=== PATIENT | female | born 1990 | race Caucasian/White ===

== ENCOUNTER → 2017-09-06 16:05 | Outpatient (CLI) | payer MEDICAID, SELFPAY ==
[2017-08-13 13:23] VITALS: BP 121/82; BMI 25.3
[2017-09-06 17:52] LABS: Free T3 5.4 pg/mL (2.18-3.98); T4 Free Direct 1.68 ng/dL (0.76-1.46); Thyroid Stim Hormone (TSH) < 0.01 uIU/mL (0.358-3.74)
== END ==
PROVIDERS: Family Provider Nurse Practitioner Family; PCP Nurse Practitioner Family; Visit Provider Nurse Practitioner
DX: E05.90 Thyrotoxicosis, unspecified without thyrotoxic crisis or storm (principal)
CPT/HCPCS: 84439; 84443; 84481

== ENCOUNTER → 2017-10-02 09:21 | Outpatient (CLI) | payer MEDICAID, SELFPAY ==
[2017-10-02 11:12] LABS: Hemoglobin A1c 5.8 % (4.2-6.3)
== END ==
PROVIDERS: Visit Provider Nurse Practitioner
DX: E11.65 Type 2 diabetes mellitus with hyperglycemia (principal)
CPT/HCPCS: 36415; 83036

== ENCOUNTER → 2017-10-10 08:49 | Outpatient (CLI) | payer MEDICAID, SELFPAY ==
--- NOTE | 2017-10-10 08:51 | NM_ITS ---
CLINICAL: Female, 27 years old. Hyperthyroid. Right-sided nodule or mass. THYROID IMAGING STUDY TECHNIQUE: The patient was administered a 306 uCi I-123 capsule by mouth. COMPARISON STUDIES : NM - None. CR - Not available for review at this time. CT - Not available for review at this time. MR - Not available for review at this time. US - 07/12/2017, which showed a 3.3 cm right thyroid mass. FINDINGS: The 4 hour I-123 radioactive iodine thyroidal uptake was calculated to be 48% (normal 5-25 %). The 24-hour I-123 radioactive iodine thyroidal uptake was calculated to be 67% (normal 5 to 35%). The iodine uptake is localized only to the right thyroid mass, with suppression of the remainder of the thyroid. NM/Thyroid Image Quant Measure IMPRESSION: Findings are consistent with a hyperactive, autonomous, hot right thyroid nodule. These can usually be very effectively treated with radioiodine therapy. Electronically Signed: Gordo Stevenson MD at 8:33 EDT , Service support ,
== END ==
PROVIDERS: Visit Provider Nurse Practitioner
DX: E05.90 Thyrotoxicosis, unspecified without thyrotoxic crisis or storm (principal)
CPT/HCPCS: 78014; A9516

== ENCOUNTER → 2017-12-06 15:43 | Outpatient (CLI) | payer MEDICAID, SELFPAY ==
[2017-12-06 17:56] LABS: Free T3 3.8 pg/mL (2.18-3.98); T4 Free Direct 1.42 ng/dL (0.76-1.46); Thyroid Stim Hormone (TSH) < 0.01 uIU/mL (0.358-3.74)
== END ==
PROVIDERS: Visit Provider Nurse Practitioner
DX: E05.90 Thyrotoxicosis, unspecified without thyrotoxic crisis or storm (principal); E07.9 Disorder of thyroid, unspecified
CPT/HCPCS: 36415; 84439; 84443; 84481

== ENCOUNTER → 2018-01-15 15:35 | Outpatient (CLI) | payer MEDICAID, SELFPAY ==
[2018-01-15 16:51] LABS: Hemoglobin A1c 5.3 % (4.2-6.3)
[2018-01-15 16:59] LABS: Free T3 2.6 pg/mL (2.18-3.98); Thyroid Stim Hormone (TSH) < 0.01 uIU/mL (0.358-3.74)
== END ==
PROVIDERS: Visit Provider Nurse Practitioner
DX: E10.9 Type 1 diabetes mellitus without complications (principal); E05.90 Thyrotoxicosis, unspecified without thyrotoxic crisis or storm
CPT/HCPCS: 36415; 83036; 84439; 84443; 84481

== ENCOUNTER → 2018-02-06 09:49 | Outpatient (CLI) | payer MEDICAID, SELFPAY ==
[2018-02-06 11:33] LABS: ALB/GLOB Ratio 0.9 RATIO (0.9-2.4); AST(SGOT) 14 U/L (15-37); Alanine Aminotransfer ALT/SGPT 16 U/L (13-56); Albumin, Serum 3.1 g/dL (3.2-5.0); Alkaline Phosphatase 40 U/L (45-117); Anion Gap 9 (5-15); BUN 9 mg/dL (7-18); BUN/Creat Ratio 14.9 RATIO (10-20); Calcium,Total 8.5 mg/dL (8.5-10.1); Chloride 105 mmol/L (98-107); Cholesterol 223 mg/dL (200); EST Glomerular Filtration Rate 128 mL/min (>60); Est Glom Filt Rate - Afr Amer 155 mL/min (>60); Free T3 2.2 pg/mL (2.18-3.98); Globulin 3.4 g/dL (2.2-4.2); Glucose 95 mg/dL (74-106); High Density Lipoprotein 58 mg/dL; Potassium 3.9 mmol/L (3.5-5.1); Protein, Total 6.5 g/dL (6.4-8.2); Sodium Level 141 mmol/L (136-145); Thyroid Stim Hormone (TSH) 0.36 uIU/mL (0.358-3.74); Triglycerides 83 mg/dL; Very Low Density Lipoprotein 17 mg/dL (5-40)
[2018-02-06 11:51] LABS: Microalbumin,Random Urine 6.4 mg/L (NO RANGE EST.); Microalbumin:Creatinine Ratio 4.1 mg/g CRE (<30 mg/g CRE)
[2018-02-08 14:15] LABS: C-Peptide 1.3 ng/mL (1.1-4.4)
== END ==
PROVIDERS: Visit Provider Nurse Practitioner
DX: E10.9 Type 1 diabetes mellitus without complications (principal)
CPT/HCPCS: 36415; 80053; 80061; 82043; 82570; 84439; 84443; 84481; 84681

== ENCOUNTER 2018-02-15 05:20 | Day surgery (SDC) | payer MEDICAID, SELFPAY ==
[2018-02-15] VITALS (9 sets, daily range): BP systolic 112–135; BP diastolic 79–98; PULSE 60–94; RESP 14–18; TEMP 36.7–37.3; O2SAT 96–100; BMI 22.2
[2018-02-15 05:56] LABS: Internal QC Validated? YES +Cl - CLEAR BKGD; Pregnancy, Urine Negative Negative
--- NOTE | 2018-02-15 06:55 | HP.PCM_ITS ---
Problem List (1) Hyperthyroidism Status: Acute History of Present Illness Date of Admission: 02/15/18 The patient is a 27 year old F who presents to the office today for for a surgical evaluation for her hyperthyroidism. Patient has been treated by numerous accredited pharmacy technician as well as ear nose and throat physicians when she was diagnosed with hypothyroidism a few years back. Recently she was seen by ELIU camara who went over her nuclear scan and other antibody studies. She was started on Tapazole and restarted on methimazole. She is currently euthyroid on Tapazole 5 mg daily and presents to my office today for surgical evaluation given the fact that she has had such a hard time getting into normal thyroidism. Past Medical History Past Medical History (Chronic Problems): Chronic Problems (Last Reviewed 02/05/18 @ 12:51 by Pura Sykes) Diabetes mellitus type 1, controlled, without complications (Chronic) initiated basaglar insulin due to low c peptide and john 65 antibodies. Instructed on use of insulin pen. Doing an excellent job of control and feels good. Confident in self.. Medical History: Medical History (Last Reviewed 02/15/18 @ 06:53 by Jared Jaimes MD) Diabetes type 2, controlled (Acute) E11.9 Dx : 07/15 Last exacerbation : DKA : never Hypoglycemic episode : never ER visit : never Polycystic ovarian disease (Acute) E28.2 Sleep apnea (Acute) G47.30 Graves disease (Acute) E05.00 Hyperthyroidism (Acute) E05.90 Allergies No Known Allergies Allergy (Verified 02/15/18 05:47) Home Medications: Ambulatory Orders Medication Instructions Recorded methimazole 5 mg tablet 5 mg PO QDAY #30 tab 12/26/17 blood sugar diagnostic strips See Dose Instructions .ROUTE 01/09/18 .MEDSUPPLY #120 ea Insulin Glargine,Hum.rec.anlog 3 unit SC QDAY 02/08/18 [Basaglar Kwikpen U-100] Norgestimate-Ethinyl Estradiol 1 each PO DAILY 02/08/18 [Williamson-Linyah 28 Tablet] Smoking Status: Former smoker - *Family History Maternal Family History: Family History (Last Reviewed 02/05/18 @ 12:51 by Pura Sykes) Father Hypertension History Items: No pertinent history Review of Systems Cardiovascular: Denies: Chest Pain, Chest Pressure, Chest Tightness, Palpitations Respiratory: Denies: Cough, Hemoptysis, Shortness of breath at rest, Shortness of breath upon exertion, Wheezing Gastrointestinal: Denies: Abdominal Pain, Constipation, Diarrhea, Hematemesis, Nausea, Melena, Vomiting Genitourinary: Denies: Dysuria, Frequency, Hematuria, Urgency VTE Information - Inpt Only VTE Present on Admission: No VTE Mechan Device Prophylaxis: SCD's VTE Pharm Prophylaxis ordered?: No Reason prophylaxis not ordered:: Treatment Not Indicated - Physical Exam General: Alert, Oriented x3 Neck: Supple, No JVD Lungs: Clear to auscultation Cardiovascular: Regular rate, Regular Rhythm, No murmurs Abdomen: Bowel Sounds Present, Soft, Non Tender, Non-Distended Vital Signs Temp Pulse Resp BP Pulse Ox 98.1 F 69 14 112/79 100 02/15/18 05:53 02/15/18 05:53 02/15/18 05:53 02/15/18 05:53 02/15/18 05:53 Oxygen Delivery Method Room Air Weight: 125 lb 10.616 oz Body Mass Index (BMI) 22.2 Laboratory Tests Past 24 Hrs 02/15/18 05:40 Urine Test Negative Assessment/Plan All Active Problems (Last Reviewed 02/05/18 @ 12:51 by Pura Sykes) Diabetes type 2, controlled (Acute) Polycystic ovarian disease (Acute) Sleep apnea (Acute) Graves disease (Acute) Hyperthyroidism (Acute) Hyperthyroidism (Acute) Diabetes mellitus type 2, controlled, without complications (Acute) I recommended that the patient undergo a total thyroidectomy. I counseled the patient is to the risk of the procedure including but not limited to infection bleeding recurrent laryngeal nerve injury or parathyroid gland injury. All questions asked were answered and she was given printed material with regards to her surgery.
[2018-02-15] MEDS: Cefazolin 2 GM in 0.9% Normal Saline 100 ML IV (07:26)
--- NOTE | 2018-02-15 07:30 | THYROID_PTH ---
PATIENT: BRIT Shen LOC: [facility] – [place] U#:[id number] AGE/SX: 27/F ROOM: RE02/15/[address]: Dr. Cortney Yanez MD : 1990 BED: DIS: 02/16/2018 SPEC #: [id number] RECD: 02/15/18 15:55 STATUS: JACOBO REJustin #: [id number] SHAHRAM: 02/15/18 07:[address]: Jared Jaimes DEPT: SURGICAL PATHOLOGY RECD BY: Beto Brandt ENTERED: 02/18/18 11:53 SP TYPE: THYROID OTHR DR: MD Dr. Cortney Balderas MD Dr. Mark Tereletsky, DO No Primary Care Phys Tissues: A - Thyroid gland, NOS B - Thyroid gland, NOS Procedures: Surgery Specimen Level V Comments: @ Ordering doctor for SUV edited from to @ by MARCIA at 02/18/18 1549 @ Submitting doctor edited from to @ by RGOOD at 02/18/18 1549 HEADER OPERATION: Total thyroidectomy PRE-OP DIAGNOSIS: Hyperthyroidism TISSUE SUBMITTED: A - Right lobe of thyroid, B ? Left lobe of thyroid MICROSCOPIC DIAGNOSIS A. Right lobe of thyroid, lobectomy: Multinodular goiter with a dominant nodule (3 cm in greatest dimension). Chronic inflammation. See comment. B. Left lobe of thyroid, lobectomy: Multinodular goiter with H?rthle cell changes. See comment. SJ:rg 02/19/18 COMMENT A. The nodules also show H?rthle cell changes and dominant nodule shows focal calcifications. B. The specimen shows only a few small nodules. Please make reference to previous specimen ([id number]) fine needle aspiration, right thyroid nodule with diagnosis of consistent with colloid nodule. MICROSCOPIC DESCRIPTION Slides are reviewed. GROSS DESCRIPTION A - Received in fixative is one container labeled with the patient's name and designated right lobe of thyroid. The specimen consists of a thyroid lobectomy specimen measuring 4.5 x 3 x 2.5 cm and weighing 14.1 gm. The specimen partly appears disrupted. External parathyroid gland is identified. A possible portion is present measuring 1.5 x 1.5 x 0.2 cm. The specimen is inked as follows: anterior surface ? blue, posterior surface ? black and isthmus resection margin ? yellow. Serial sections reveal a soto, solid nodule occupying the middle to lower portion of the thyroid lobe measuring 3 x 2.5 x 2 cm. There is a nodule occupying almost 80% of the thyroid lobe. No distinct capsule is noted surrounding the nodule. The entire specimen is submitted in ten cassettes as follows: 1 ? isthmus, 2-10 ? thyroid lobe (2?containing most superior portion and 10 containing most inferior portion). B - Received in fixative is one container labeled with the patient's name and designated left lobe of thyroid. The specimen consists of a thyroid lobectomy specimen including possible portion of isthmus measuring 2 x 1.5 x 1 cm. The isthmic portion measures 1 x 0.5 x 0.4 cm and weighing 1.7 gm. The specimen is inked as follows: anterior surface ? blue, posterior surface ? black and isthmus resection margin ? yellow. The specimen is serially sectioned and does not reveal any mass lesion. The entire specimen is submitted in three cassettes as follows: 1 ? isthmus, 2 & 3 - thyroid lobe (2 containing superior half of the lobe and 3 containing inferior half of the lobe). / SJ:roland 02/18/18 TC:5 CPT: 29113 x2
--- NOTE | 2018-02-15 08:39 | PCM.OPRPT ---
Problem List (1) Hyperthyroidism Status: Acute Report of Operation Date of Procedure: 02/15/18 Pre-Operative Diagnosis: Hyperthyroidism Post-Operative Diagnosis: Same Surgery/Procedure Performed:: Total thyroidectomy Type of Anesthesia:: General Anesthesiologist: Adilson Jimenez Description of Procedure: Patient was brought into the operating room placed in the supine position under excellent general trach intubation towel was placed underneath the shoulder blades and neck was extended sterilely prepped and draped in usual fashion. Local was injected cervical incision was made subplatysmal flaps were created with use of electrocautery. Gelpi retractor was placed inside the wound midline strap muscles were opened up with electrocautery. Started on the right side going to the superior pole vessels and took these down with harmonic dissector came down to the middle thyroidal vein and took this down with harmonic dissector finally the inferior thyroid vessels down with harmonic dissector. Rotated the gland from lateral medial standpoint identified both inferior and superior parathyroid glands and sparing them and identified the recurrent laryngeal nerve. Took the gland off of Vargas's ligaments with the pneumonic dissector and rotated off the trachea to the left side the left side was extremely small once again went to the superior pole vessels first took these down into the inferior pole vessels and took these down. Middle thyroidal vein was taken with a harmonic dissector and finally rotated the gland from lateral to medial standpoint once again identified both inferior and superior parathyroid glands as well as the recurrent laryngeal nerve. I took the gland off of Vargas's ligament and I sent it into specimens right lobe of the thyroid gland and left lobe of thyroid gland which also contain part of the isthmus. Placed Surgicel into the left side I inspected the right side it was completely clean and I did not leave any Surgicel in there. Midline strap muscles were closed with 2-0 Vicryl subplatysmal flaps were brought together with 3-0 Vicryl in a running 4-0 Monocryl and Dermabond was applied sterile dressings were applied and the patient tolerated the procedure well. - Admit VTE Documentation VTE Present on Admission: No VTE Pharm Prophylaxis ordered?: No Reason prophylaxis not ordered:: Treatment Not Indicated
[2018-02-15 08:56] LABS: Bedside Glucose 91 mg/dL (70-110)
[2018-02-15 09:21] LABS: Bedside Glucose 104 mg/dL (70-110)
[2018-02-15] MEDS: Lactated Ringers 1,000 ML 50 ML IV (10:46)
[2018-02-15 10:50] LABS: Calcium,Total 8.4 mg/dL (8.5-10.1)
--- NOTE | 2018-02-15 11:14 | NURSING ---
PT ARRIVED TO UNIT A&OX3. DRESSING ANT NECK D/I. TONGUE MIDLINE, WITHOUT GROSS NEUROLOGICAL DEFICIT NOTED. PT TOLERATING ICE CHIPS AND DENIES FURTHER PAIN NEEDS AT PRESENT. CALL LIGHT WITHIN REACH. FAMILY AT BEDSIDE.
[2018-02-15] MEDS: BUPIVACAINE LIPOSOME/PF 20 ML VIAL OPERA.SITE (11:18)
[2018-02-15 11:25] LABS: Bedside Glucose 123 mg/dL (70-110)
[2018-02-15] MEDS: Calcium Carbonate 500 MG Tablet 1000 MG PO ×2 (12:51→17:11)
[2018-02-15 13:01] LABS: Bedside Glucose 117 mg/dL (70-110)
--- NOTE | 2018-02-15 15:08 | PN_ITS ---
Subjective: Patient seen and examined. Status post total thyroidectomy with Dr. Jaimes. Complains of neck/throat pain 5/10 with movement of her head and swallowing. Otherwise she states she feels comfortable. Denies other current complaints. - Physical Exam General: Alert, Oriented x3, Cooperative, No apparent distress HEENT: Atraumatic, PERRLA, EOMI, Normocephalic Neck: Supple, No JVD, Negative Carotid Bruits, - - Postoperative dressing clean dry and intact. Lungs: Clear to auscultation, Normal air movement Cardiovascular: Regular rate, Regular Rhythm, Normal S1, Normal S2, No murmurs Abdomen: Bowel Sounds Present, Soft, Non Tender, Non-Distended Extremities: No clubbing, No cyanosis, No edema, Capillary Refill Less than 3 Seconds Skin: No rashes, No breakdown Musculoskeletal: No Tenderness to Palpation of Joints or Extremities Neurological: Cranial nerves II-XII grossly intact, Neuro grossly intact Psych/Mental Status: Normal Affect, Appropriate Vital Signs Temp Pulse Resp BP Pulse Ox 98.0 F 75 16 121/86 H 100 02/15/18 12:47 02/15/18 12:47 02/15/18 12:47 02/15/18 12:47 02/15/18 12:47 Oxygen Delivery Method Room Air Weight: 125 lb 10.616 oz Body Mass Index (BMI) 22.2 Finger Stick Blood Glucose 104 Intake and Output for Last 24 Hours 02/13/18 02/14/18 02/15/18 23:59 23:59 23:59 Intake Total 700 / 700 Balance 700 / 700 Laboratory Tests Past 24 Hrs 02/15/18 02/15/18 05:40 10:00 Calcium 8.4 L Urine Test Negative POC Glucose 02/15/18 02/15/18 02/15/18 12:56 11:07 09:15 POC Glucose 117 H 123 H 104 02/15/18 06:08 POC Glucose 91 Medical Necessity - Tobacco Use Smoking Status: Former smoker Assessment/Plan All Active Problems (Last Reviewed 02/15/18 @ 06:53 by Jared Jaimes MD) Diabetes type 2, controlled (Acute) Polycystic ovarian disease (Acute) Sleep apnea (Acute) Graves disease (Acute) Hyperthyroidism (Acute) Hyperthyroidism (Acute) Diabetes mellitus type 2, controlled, without complications (Acute) 1. Status post total thyroidectomy with Dr. Jaimes secondary to hyperthyroidism 02/15/18. No complications noted. Follows as outpatient with ELIU camara. Continue levothyroxine. 2. Type 1 diabetes mellitus-hemoglobin A1c 5.3% 01/15/2018. Accu-Cheks before meals at bedtime with low-dose sliding scale insulin. Continue home long- acting regimen. 3. PCOS 4. MARIAH- states she is not on cpap. DVT prophylaxis-not indicated, low risk. This patient was seen by TOSHIA Reilly under the supervision of Dr. Harley.
[2018-02-15] MEDS: Cefazolin 1 GM/50 ML BAG IV ×2 (15:36→22:34)
[2018-02-15] MEDS: HYDROmorphone 1 MG/ML Syringe IV ×2 (15:38→22:34)
[2018-02-15] MEDS: 0.9% NaCl Peripheral Flush Adult/Peds IV ×2 (15:38→17:29)
[2018-02-15 17:16] LABS: Bedside Glucose 104 mg/dL (70-110)
[2018-02-15] MEDS: Ondansetron 4 MG/2 ML Vial IV (17:28)
[2018-02-15 18:14] LABS: Calcium,Total 7.9 mg/dL (8.5-10.1)
[2018-02-15 21:55] LABS: Bedside Glucose 88 mg/dL (70-110)
[2018-02-16 02:30] VITALS: BP 130/70; PULSE 59; RESP 18; TEMP 36.8; O2SAT 97
[2018-02-16] MEDS: Lactated Ringers 1,000 ML 50 ML IV (05:28)
[2018-02-16] MEDS: HYDROmorphone 1 MG/ML Syringe IV (05:28)
[2018-02-16 05:36] LABS: Bedside Glucose 92 mg/dL (70-110)
[2018-02-16 07:38] LABS: Calcium,Total 8.2 mg/dL (8.5-10.1)
[2018-02-16 08:10] VITALS: BP 105/70; PULSE 62; RESP 16; TEMP 36.8; O2SAT 98
[2018-02-16] MEDS: Calcium Carbonate 500 MG Tablet 1000 MG PO ×2 (08:18→12:07)
--- NOTE | 2018-02-16 08:57 | CASEMGMT ---
INFLATABLE BUILDINGS LAMINATORBambi said patient needs a primary care Dr roberts. SW gave patient a list of local physicians. Laura MCCULLOUGH MSW
--- NOTE | 2018-02-16 09:09 | PCM.PROGNOTE ---
<Bambi Pond - Last Filed: 02/16/18 09:13> Subjective: Patient seen and examined. States throat pain is improved. Continues to have discomfort with swallowing. Denies difficulty swallowing. Denies other current complaints. Encouraged patient to establish primary care physician at discharge. She is agreeable. - Physical Exam General: Alert, Oriented x3, Cooperative HEENT: Atraumatic, PERRLA, EOMI, Normocephalic Neck: Supple, No JVD, Negative Carotid Bruits, - - Postop dressing status post total thyroidectomy clean dry and intact. Lungs: Clear to auscultation, Normal air movement Cardiovascular: Regular rate, Regular Rhythm, Normal S1, Normal S2, No murmurs Abdomen: Bowel Sounds Present, Soft, Non Tender, Non-Distended Extremities: No clubbing, No cyanosis, No edema, Capillary Refill Less than 3 Seconds Skin: No rashes, No breakdown Musculoskeletal: No Tenderness to Palpation of Joints or Extremities Neurological: Cranial nerves II-XII grossly intact, Neuro grossly intact Psych/Mental Status: Normal Affect, Appropriate Vital Signs Temp Pulse Resp BP Pulse Ox 98.3 F 62 16 105/70 98 02/16/18 08:10 02/16/18 08:10 02/16/18 08:10 02/16/18 08:10 02/16/18 08:10 Oxygen Delivery Method Room Air Weight: 125 lb 10.616 oz Body Mass Index (BMI) 22.2 Finger Stick Blood Glucose 104 Intake and Output for Last 24 Hours 02/14/18 02/15/18 02/16/18 23:59 23:59 23:59 Intake Total 1453 / 1453 638 / 638 Balance 1453 / 1453 638 / 638 Laboratory Tests Past 24 Hrs 02/15/18 02/15/18 02/16/18 10:00 17:46 06:25 Calcium 8.4 L 7.9 L 8.2 L POC Glucose 02/16/18 02/15/18 02/15/18 05:23 20:26 17:09 POC Glucose 92 88 104 02/15/18 02/15/18 02/15/18 12:56 11:07 09:15 POC Glucose 117 H 123 H 104 Medical Necessity - Tobacco Use Smoking Status: Former smoker Assessment/Plan All Active Problems (Last Reviewed 02/15/18 @ 06:53 by Jared Jaimes MD) Diabetes type 2, controlled (Acute) Polycystic ovarian disease (Acute) Sleep apnea (Acute) Graves disease (Acute) Hyperthyroidism (Acute) Hyperthyroidism (Acute) Diabetes mellitus type 2, controlled, without complications (Acute) 1. Status post total thyroidectomy with Dr. Jaimes secondary to hyperthyroidism 02/15/18. No complications noted. Follows as outpatient with ELIU camara. Continue levothyroxine. 2. Type 1 diabetes mellitus-hemoglobin A1c 5.3% 01/15/2018. Accu-Cheks before meals at bedtime with low-dose sliding scale insulin. Continue home long-acting regimen. Blood glucose stable. 3. PCOS 4. MARIAH- states she is not on cpap. DVT prophylaxis-not indicated, low risk. This patient was seen by TOSHIA Reilly under the supervision of Dr. Yanez. <Cortney Yanez E - Last Filed: 02/16/18 11:21> - Physical Exam Vital Signs Temp Pulse Resp BP Pulse Ox 98.3 F 62 16 105/70 98 02/16/18 08:10 02/16/18 08:10 02/16/18 08:10 02/16/18 08:10 02/16/18 08:10 Oxygen Delivery Method Room Air Weight: 125 lb 10.616 oz Body Mass Index (BMI) 22.2 Finger Stick Blood Glucose 104 Intake and Output for Last 24 Hours 02/14/18 02/15/18 02/16/18 23:59 23:59 23:59 Intake Total 1453 / 1453 638 / 638 Balance 1453 / 1453 638 / 638 Laboratory Tests Past 24 Hrs 02/15/18 02/16/18 17:46 06:25 Calcium 7.9 L 8.2 L POC Glucose 02/16/18 02/15/18 02/15/18 05:23 20:26 17:09 POC Glucose 92 88 104 02/15/18 02/15/18 12:56 11:07 POC Glucose 117 H 123 H Assessment/Plan Hospitalist note: I am seeing this patient in conjunction with Bambi Pond. I independently seen and examined the patient. Progress note above and laboratory data and I agree with above treatment plan. She still complaining of throat pain but improved. Reported mild discomfort upon swallowing. No chest pain or shortness of breath. Her vital signs are stable. - Physical Exam General: Alert, Oriented x3, Cooperative, No apparent distress. HEENT: Atraumatic, PERRLA, EOMI. Neck: Supple, No JVD, Negative Carotid Bruits, Trachea Midline, Thyroid Normal. Lungs: Clear to auscultation, Normal air movement, No rhonchi, No wheeze, No rales. Cardiovascular: Regular rate, Regular Rhythm, Normal S1, Normal S2, PMI Normal. Abdomen: Bowel Sounds Present, Soft, Non Tender, Non-Distended, No Hepato-splenomegaly. Extremities: No clubbing, No cyanosis, No edema Skin: No rashes, No breakdown Neurological: Neuro grossly intact Vital Signs are stable. Assessment and plan: #1 status post total thyroidectomy: for hypothyroidism, postoperative day 1. Vital signs are stable, serum creatinine has been stable. General surgery is managing. She is on levothyroxine and methimazole. From medical standpoint, patient stable to go home. #2 type 1 diabetes mellitus: Questionable diagnosis. Her blood sugar has been stable. Hemoglobin A1c 2 months ago was 5.3. She has been on this very small dose of glargine insulin. Recommended to keep taking same dose of insulin, follow-up with PCP. This note was generated with [employer] dictation software. It may contain incorrect words, spelling, and punctuation that were not noted in checking the note before signing. Code Visit Inpatient E&M: 54376 Subs Hosp L2
--- NOTE | 2018-02-16 09:13 | PN_ITS ---
<Bambi Pond - Last Filed: 02/16/18 09:13> Subjective: Patient seen and examined. States throat pain is improved. Continues to have discomfort with swallowing. Denies difficulty swallowing. Denies other current complaints. Encouraged patient to establish primary care physician at discharge. She is agreeable. - Physical Exam General: Alert, Oriented x3, Cooperative HEENT: Atraumatic, PERRLA, EOMI, Normocephalic Neck: Supple, No JVD, Negative Carotid Bruits, - - Postop dressing status post total thyroidectomy clean dry and intact. Lungs: Clear to auscultation, Normal air movement Cardiovascular: Regular rate, Regular Rhythm, Normal S1, Normal S2, No murmurs Abdomen: Bowel Sounds Present, Soft, Non Tender, Non-Distended Extremities: No clubbing, No cyanosis, No edema, Capillary Refill Less than 3 Seconds Skin: No rashes, No breakdown Musculoskeletal: No Tenderness to Palpation of Joints or Extremities Neurological: Cranial nerves II-XII grossly intact, Neuro grossly intact Psych/Mental Status: Normal Affect, Appropriate Vital Signs Temp Pulse Resp BP Pulse Ox 98.3 F 62 16 105/70 98 02/16/18 08:10 02/16/18 08:10 02/16/18 08:10 02/16/18 08:10 02/16/18 08:10 Oxygen Delivery Method Room Air Weight: 125 lb 10.616 oz Body Mass Index (BMI) 22.2 Finger Stick Blood Glucose 104 Intake and Output for Last 24 Hours 02/14/18 02/15/18 02/16/18 23:59 23:59 23:59 Intake Total 1453 / 1453 638 / 638 Balance 1453 / 1453 638 / 638 Laboratory Tests Past 24 Hrs 02/15/18 02/15/18 02/16/18 10:00 17:46 06:25 Calcium 8.4 L 7.9 L 8.2 L POC Glucose 02/16/18 02/15/18 02/15/18 05:23 20:26 17:09 POC Glucose 92 88 104 02/15/18 02/15/18 02/15/18 12:56 11:07 09:15 POC Glucose 117 H 123 H 104 Medical Necessity - Tobacco Use Smoking Status: Former smoker Assessment/Plan All Active Problems (Last Reviewed 02/15/18 @ 06:53 by Jared Jaimes MD) Diabetes type 2, controlled (Acute) Polycystic ovarian disease (Acute) Sleep apnea (Acute) Graves disease (Acute) Hyperthyroidism (Acute) Hyperthyroidism (Acute) Diabetes mellitus type 2, controlled, without complications (Acute) 1. Status post total thyroidectomy with Dr. Jaimes secondary to hyperthyroidism 02/15/18. No complications noted. Follows as outpatient with ELIU camara. Continue levothyroxine. 2. Type 1 diabetes mellitus-hemoglobin A1c 5.3% 01/15/2018. Accu-Cheks before meals at bedtime with low-dose sliding scale insulin. Continue home long- acting regimen. Blood glucose stable. 3. PCOS 4. MARIAH- states she is not on cpap. DVT prophylaxis-not indicated, low risk. This patient was seen by TOSHIA Reilly under the supervision of Dr. Yanez. <Cortney Yanez E - Last Filed: 02/16/18 11:21> - Physical Exam Vital Signs Temp Pulse Resp BP Pulse Ox 98.3 F 62 16 105/70 98 02/16/18 08:10 02/16/18 08:10 02/16/18 08:10 02/16/18 08:10 02/16/18 08:10 Oxygen Delivery Method Room Air Weight: 125 lb 10.616 oz Body Mass Index (BMI) 22.2 Finger Stick Blood Glucose 104 Intake and Output for Last 24 Hours 02/14/18 02/15/18 02/16/18 23:59 23:59 23:59 Intake Total 1453 / 1453 638 / 638 Balance 1453 / 1453 638 / 638 Laboratory Tests Past 24 Hrs 02/15/18 02/16/18 17:46 06:25 Calcium 7.9 L 8.2 L POC Glucose 02/16/18 02/15/18 02/15/18 05:23 20:26 17:09 POC Glucose 92 88 104 02/15/18 02/15/18 12:56 11:07 POC Glucose 117 H 123 H Assessment/Plan Hospitalist note: I am seeing this patient in conjunction with Bambi Pond. I independently seen and examined the patient. Progress note above and laboratory data and I agree with above treatment plan. She still complaining of throat pain but improved. Reported mild discomfort upon swallowing. No chest pain or shortness of breath. Her vital signs are stable. - Physical Exam General: Alert, Oriented x3, Cooperative, No apparent distress. HEENT: Atraumatic, PERRLA, EOMI. Neck: Supple, No JVD, Negative Carotid Bruits, Trachea Midline, Thyroid Normal. Lungs: Clear to auscultation, Normal air movement, No rhonchi, No wheeze, No rales. Cardiovascular: Regular rate, Regular Rhythm, Normal S1, Normal S2, PMI Normal. Abdomen: Bowel Sounds Present, Soft, Non Tender, Non-Distended, No Hepato- splenomegaly. Extremities: No clubbing, No cyanosis, No edema Skin: No rashes, No breakdown Neurological: Neuro grossly intact Vital Signs are stable. Assessment and plan: #1 status post total thyroidectomy: for hypothyroidism, postoperative day 1. Vital signs are stable, serum creatinine has been stable. General surgery is managing. She is on levothyroxine and methimazole. From medical standpoint, patient stable to go home. #2 type 1 diabetes mellitus: Questionable diagnosis. Her blood sugar has been stable. Hemoglobin A1c 2 months ago was 5.3. She has been on this very small dose of glargine insulin. Recommended to keep taking same dose of insulin, follow-up with PCP. This note was generated with [employer] dictation software. It may contain incorrect words, spelling, and punctuation that were not noted in checking the note before signing. Code Visit Inpatient E&M: 53385 Subs Hosp L2
--- NOTE | 2018-02-16 10:32 | PCM.DC.GS ---
Discharge Diet: Light diet - advance as tolerated - If you have questions about your diet instructions, please talk to your doctor. Discharge Activity: May Not Drive - for 1 week or while taking narcotic pain medicine. May shower in (days): 1 Lifting Restrictions: 10 pounds Call your doctor if your incision/area has: Continuous Slow Oozing, Sudden Increased Bleeding, Increased Pain/ Swelling, Increased Redness, Foul Smelling Discharge Call your doctor if you observe: Fever of 101 or Higher Suture Line Care: Avoid Pulling/Pushing, Avoid Pinching/Bending Cleanse incision/area with: Soap & Water - Okay to shower Additional Dressing/Incision Instructions:: Change or remove dressing in 4 days. Leave steri-strips in place for 1 week. Additional Instructions: By a bottle of extra strength Tums. Take 2 tablets 3 times a day for 1 week. Allergies/Adverse Reactions: Allergies No Known Allergies Allergy (Verified 02/15/18 05:47) Medications to take at Discharge methimazole 5 mg tablet 5 mg PO QDAY #30 tab 12/26/17 blood sugar diagnostic strips See Dose Instructions .ROUTE .MEDSUPPLY #120 ea 01/09/18 Insulin Glargine,Hum.rec.anlog [Basaglar Kwikpen U-100] 3 unit SC QDAY 02/08/18 Norgestimate-Ethinyl Estradiol [Rusk-Linyah 28 Tablet] 1 each PO DAILY 02/08/18 Levothyroxine Sodium [Levoxyl] 100 mcg PO DAILY #30 tab 02/15/18 Oxycodone HCl/Acetaminophen [Percocet 5/325] 1 - 2 tab PO Q4H PRN PRN 4 Days #30 tab 02/15/18 The following prescriptions were given: Oxycodone HCl/Acetaminophen [Percocet 5/325] 1 - 2 tab PO Q4H PRN PRN 4 Days #30 tab PRN Reason: Pain Levothyroxine Sodium [Levoxyl] 100 mcg PO DAILY #30 tab Primary Care Physician: Care Physician,No Primary [Primary Care Provider] - Test Results: Test results from this visit will be discussed in further detail at your follow-up appointment, if applicable. Please Follow Up With: Jared Jaimes MD - [phone] When: Call to make an appointment to be seen in about 10 days.
[2018-02-16 12:35] LABS: Bedside Glucose 90 mg/dL (70-110)
[2018-02-16 13:01] VITALS: BP 122/85; PULSE 89; RESP 16; TEMP 37.1; O2SAT 99
== END 2018-02-16 13:40 | disposition home or self-care (01) ==
LOC: SDC 05:21 → AC 05:23 → MS3 08:27
PROVIDERS: Surgery; Visit Provider Hospitalist
PROC: (CPT 320; principal; 2018-02-15 07:15)
DX: E05.20 Thyrotoxicosis with toxic multinodular goiter without thyrotoxic crisis or storm (principal); E10.9 Type 1 diabetes mellitus without complications; G47.30 Sleep apnea, unspecified; E28.2 Polycystic ovarian syndrome; I34.1 Nonrheumatic mitral (valve) prolapse; F17.200 Nicotine dependence, unspecified, uncomplicated; Z79.4 Long term (current) use of insulin
CPT/HCPCS: 00320; 60240; 36415; 81025; 82310; 82962; 88307; J7030; J7120; A4216; J2405

== ENCOUNTER → 2018-02-25 10:01 | Outpatient (CLI) | payer MEDICAID, SELFPAY ==
[2018-02-25 10:42] LABS: Calcium,Total 9.1 mg/dL (8.5-10.1)
== END ==
PROVIDERS: Physician Assistant; Visit Provider Surgery
DX: E05.90 Thyrotoxicosis, unspecified without thyrotoxic crisis or storm (principal); E89.0 Postprocedural hypothyroidism
CPT/HCPCS: 36415; 82310

== ENCOUNTER → 2018-03-18 10:44 | Outpatient (CLI) | payer MEDICAID, SELFPAY ==
[2018-03-18 12:04] LABS: Free T3 1.5 pg/mL (2.18-3.98); T4 Free Direct 1.15 ng/dL (0.76-1.46); Thyroid Stim Hormone (TSH) 1.32 uIU/mL (0.358-3.74)
== END ==
PROVIDERS: Visit Provider Nurse Practitioner
DX: E89.0 Postprocedural hypothyroidism (principal)
CPT/HCPCS: 36415; 84439; 84443; 84481

== ENCOUNTER → 2018-05-17 09:31 | Outpatient (CLI) | payer MEDICAID, SELFPAY ==
[2018-05-17 10:44] LABS: Glucose 137 mg/dL (74-106)
== END ==
PROVIDERS: Referring Provider Nurse Practitioner; Visit Provider Nurse Practitioner
DX: R73.9 Hyperglycemia, unspecified (principal)
CPT/HCPCS: 36415; 82947

== ENCOUNTER → 2018-06-06 10:15 | Outpatient (CLI) | payer MEDICAID, SELFPAY ==
[2018-06-06 12:05] LABS: Glucose 110 mg/dL (74-106)
== END ==
PROVIDERS: Referring Provider Nurse Practitioner; Visit Provider Nurse Practitioner
DX: R73.9 Hyperglycemia, unspecified (principal)
CPT/HCPCS: 36415; 82947

== ENCOUNTER → 2018-06-24 09:31 | Outpatient (CLI) | payer MEDICAID, SELFPAY ==
[2018-06-19 14:21] VITALS: BMI 23.0
[2018-06-24 11:27] LABS: Hemoglobin A1c 6.1 % (4.2-6.3)
[2018-06-24 11:37] LABS: Microalbumin,Random Urine 12.8 mg/L (NO RANGE EST.); Microalbumin:Creatinine Ratio 12.4 mg/g CRE (<30 mg/g CRE)
[2018-06-24 11:44] LABS: ALB/GLOB Ratio 0.9 RATIO (0.9-2.4); AST(SGOT) 12 U/L (15-37); Alanine Aminotransfer ALT/SGPT 21 U/L (13-56); Albumin, Serum 3.2 g/dL (3.2-5.0); Alkaline Phosphatase 44 U/L (45-117); Anion Gap 12 (5-15); BUN 14 mg/dL (7-18); BUN/Creat Ratio 18.7 RATIO (10-20); Calcium,Total 8.8 mg/dL (8.5-10.1); Chloride 104 mmol/L (98-107); Cholesterol 310 mg/dL (200); Creatinine, Serum 0.75 mg/dL (0.55-1.02); EST Glomerular Filtration Rate 100 mL/min (>60); Est Glom Filt Rate - Afr Amer 121 mL/min (>60); Globulin 3.7 g/dL (2.2-4.2); Glucose 127 mg/dL (74-106); High Density Lipoprotein 63 mg/dL; Protein, Total 6.9 g/dL (6.4-8.2); Sodium Level 139 mmol/L (136-145); Triglycerides 76 mg/dL; Very Low Density Lipoprotein 15 mg/dL (5-40)
== END ==
PROVIDERS: Referring Provider Nurse Practitioner; Visit Provider Nurse Practitioner
DX: R73.03 Prediabetes (principal)
CPT/HCPCS: 36415; 80053; 80061; 82043; 82570; 83036

== ENCOUNTER → 2018-07-10 14:13 | Outpatient (CLI) | payer MEDICAID, SELFPAY ==
[2018-06-26 08:04] VITALS: BMI 23.0
[2018-07-10 17:41] LABS: Chlamydia Trachomatis by PCR Negative (Negative); Neisserai gonorrhoeae by PCR Negative (Negative); Probe Check PASS; Sample Adequacy Control PASS; Specimen Processing Control PASS
[2018-07-10 19:24] LABS: HIV - WCH Non-Reactive (Nonreactive)
[2018-07-12 04:55] LABS: Rapid Plasmin Reagin (RPR) NONREACTIVE (NONREACTIVE)
[2018-07-12 09:00] LABS: HEPATITIS B SURFACE AG Negative (Negative); Hep C Antibodies <0.1 s/co ratio (0.0-0.9)
[2018-07-15 15:03] LABS: HPV Reflexed? NOT INDICATED
--- OUTSIDE RECORDS SUMMARY | 2018-08-26 19:03 | XMS RPT_ITS ---
:1990 Author Organization [place] Support Name Relationship Address Phone PREETHI COTTO Unavailable Unavailable + PREETHI COTTO Unavailable Unavailable + PREETHI COTTO Unavailable Unavailable + JOE COTTORICIA Unavailable [address] + [place] [address] [employer] Unavailable [address] + [place] [address] [employer], ANTHONY Unavailable [address] + [place] [address] [employer] Unavailable [address] + [place] [address] [employer], ANTHONY Unavailable [address] + [place] [address] [employer] Unavailable [address] + [place] [address] [employer], ANTHONY Unavailable [address] + [place] [address] [employer] Unavailable [address] + [place] [address] [employer], ANTHONY Unavailable Unavailable + [place] [address] [facility] Unavailable [address] + [place] [address] PREETHI COTTO Unavailable [address] + [place] [address] [facility] Unavailable [address] + [place] [address] [employer], PREETHI Unavailable [address] + [place] [address] [employer] Unavailable [address] + [place] [address] [employer], PREETHI Unavailable [address] + [place] [address] [employer] Unavailable [address] + [place] [address] [employer], PREETHI Unavailable Unavailable + [facility], PREETHI Unavailable Unavailable + [facility], PREETHI Unavailable Unavailable + [facility], PREETHI Unavailable [address] + [place] [address] [facility] Unavailable [address] + [place] [address] [employer], PREETHI Unavailable Unavailable + [facility], PREETHI Unavailable Unavailable + [facility]CS[facility], PREETHI Unavailable Unavailable + [facility]CS[facility], PREETHI Unavailable Unavailable + [facility]CS[facility], PREETHI Unavailable Unavailable + [facility], PREETHI Unavailable Unavailable + [facility]CS[facility], PREETHI Unavailable [address] + [place] [address] [facility] Unavailable [address] + [place] [address] [employer], PREETHI Unavailable [address] + [place] [address] [facility] Unavailable [address] + [place] [address] [employer], PREETHI Unavailable [address] + [place] [address] [facility] Unavailable [address] + [place] [address] [employer], PREETHI Unavailable [address] + [place] [address] [facility] Unavailable [address] + [place] [address] [employer], PREETHI Unavailable [address] + [place] [address] [facility] Unavailable [address] + [place] [address] [employer], PREETHI Unavailable [address] + [place] [address] [facility] Unavailable [address] + [place] [address] [facility], PREETHI Unavailable [address] + [place] [address] [facility] Unavailable [address] + [place] [address] [facility], PREETHI Unavailable [address] + [place] [address] [facility] Unavailable [address] + [place] [address] [employer], PREETHI Unavailable [address] + [place] [address] [facility] Unavailable [address] + [place] [address] [facility], PREETHI Unavailable [address] + [place] [address] [facility] Unavailable [address] + [place] [address] [facility], PREETHI Unavailable [address] + [place] [address] [facility] Unavailable [address] + [place] [address] [facility], PREETHI Unavailable [address] + [place] [address] [facility] Unavailable [address] + [place] [address] [facility], PREETHI Unavailable [address] + [place] [address] [facility] Unavailable [address] + [place] [address] [facility], PREETHI Unavailable [address] + [place] [address] [facility] Unavailable [address] + [place] [address] [facility], PREETHI Unavailable [address] + [place] [address] [facility] Unavailable [address] + [place] [address] [facility], PREETHI Unavailable [address] + [place] [address] [facility] Unavailable [address] + [place] [address] [facility], PREETHI Unavailable Unavailable + [facility], PREETHI Unavailable Unavailable + [facility]CS[facility], PREETHI Unavailable Unavailable + [facility]CS[facility], PREETHI Unavailable [address] + [place] [address] [facility] Unavailable [address] + [place] [address] [facility], PREETHI Unavailable Unavailable + [facility], PREETHI Unavailable Unavailable + [facility], PREETHI Unavailable Unavailable + [facility], PREETHI Unavailable Unavailable + [facility], PREETHI Unavailable Unavailable + [facility], PREETHI Unavailable Unavailable + [facility], PREETHI Unavailable Unavailable + [facility], PREETHI Unavailable Unavailable + [facility], PREETHI Unavailable Unavailable + [facility]CS[facility], PREETHI Unavailable Unavailable + [facility]CS[facility], PREETHI Unavailable Unavailable + [facility], PREETHI Unavailable Unavailable Unavailable [facility], PREETHI Unavailable [address] + [place] [address] [facility] Unavailable [address] + [place] [address] [facility], PREETHI Unavailable [address] + [place] [address] [facility] Unavailable [address] + [place] [address] [facility], PREETHI Unavailable [address] + [place] [address] [facility] Unavailable [address] + [place] [address] [facility], PREETHI Unavailable [address] + [place] [address] [facility] Unavailable [address] + [place] [address] [facility], PREETHI Unavailable [address] + [place] [address] [facility] Unavailable [address] + [place] [address] Care Team Providers Name Role Edison Yang Attending Unavailable Primay Care Physicia, No Primary Care Unavailable Jared Jaimes Attending Unavailable Jared Jaimes Referring Unavailable Primay Care Physicia, No Primary Care Unavailable Jared Jaimes Consulting Unavailable Bambi Pond NP-C Attending Unavailable Jared Jaimes Referring Unavailable Primay Care Physicia, No Primary Care Unavailable Frederick Harley Consulting Unavailable Jared Jaimes Consulting Unavailable Natacha Camara NP-C Attending Unavailable Primay Care Physicia, No Referring Unavailable Natacha Camara STEAMING MACHINE OPERATOR-C Attending Unavailable Natacha Camara STEAMING MACHINE OPERATOR-C Referring Unavailable Primay Care Physicia, No Primary Care Unavailable Natacha Camara NP-C Attending Unavailable Primay Care Physicia, No Referring Unavailable Natacha Camara STEAMING MACHINE OPERATOR-C Attending Unavailable Natacha Camara STEAMING MACHINE OPERATOR-C Referring Unavailable Primay Care Physicia, No Primary Care Unavailable Natacha Camara STEAMING MACHINE OPERATOR-C Attending Unavailable Natacha Camara STEAMING MACHINE OPERATOR-C Referring Unavailable Primay Care Physicia, No Primary Care Unavailable Natacha Camara STEAMING MACHINE OPERATOR-C Attending Unavailable Primay Care Physicia, No Referring Unavailable Natacha Camara STEAMING MACHINE OPERATOR-C Attending Unavailable Natacha Camara STEAMING MACHINE OPERATOR-C Attending Unavailable Primay Care Physicia, No Referring Unavailable ShoNatacha balderas STEAMING MACHINE OPERATOR-C Attending Unavailable Primay Care Physicia, No Referring Unavailable Primay Care Physicia, No Primary Care Unavailable ShoNatacha balderas STEAMING MACHINE OPERATOR-C Attending Unavailable Natacha Camara STEAMING MACHINE OPERATOR-C Referring Unavailable Primay Care Physicia, No Primary Care Unavailable Jared Jaimes Referring Unavailable Primay Care Physicia, No Primary Care Unavailable Frederick Harley Consulting Unavailable Ashelfah, Ghasem Attending Unavailable ViktorelfCortney curiel Consulting Unavailable ShookNatacha STEAMING MACHINE OPERATOR-C Attending Unavailable ShoNatacha balderas STEAMING MACHINE OPERATOR-C Referring Unavailable Primay Care Physicia, No Primary Care Unavailable ShoNatacha balderas STEAMING MACHINE OPERATOR-C Attending Unavailable Primay Care Physicia, No Referring Unavailable Primay Care Physicia, No Primary Care Unavailable ShoNatacha baldreas STEAMING MACHINE OPERATOR-C Attending Unavailable Primay Care Physicia, No Referring Unavailable ShoNatacha balderas STEAMING MACHINE OPERATOR-C Attending Unavailable Jared Jaimes Referring Unavailable Primay Care Physicia, No Primary Care Unavailable Frederick Harley Consulting Unavailable Ashelfah, Ghasem Attending Unavailable ShoNatacha balderas STEAMING MACHINE OPERATOR-C Attending Unavailable Natacha Camara STEAMING MACHINE OPERATOR-C Referring Unavailable Primay Care Physicia, No Primary Care Unavailable Jared Jaimes Attending Unavailable Primay Care Physicia, No Referring Unavailable Primay Care Physicia, No Primary Care Unavailable ShoNatacha balderas STEAMING MACHINE OPERATOR-C Attending Unavailable Primay Care Physicia, No Referring Unavailable Primay Care Physicia, No Primary Care Unavailable Natacha Camara STEAMING MACHINE OPERATOR-C Attending Unavailable Primay Care Physicia, No Referring Unavailable Primay Care Physicia, No Primary Care Unavailable Natacha Camara STEAMING MACHINE OPERATOR-C Attending Unavailable ShoNatacha balderas STEAMING MACHINE OPERATOR-C Referring Unavailable Primay Care Physicia, No Primary Care Unavailable ShoNatacha balderas STEAMING MACHINE OPERATOR-C Attending Unavailable Natacha Camara STEAMING MACHINE OPERATOR-C Referring Unavailable Primay Care Physicia, No Primary Care Unavailable ShoNatacha balderas STEAMING MACHINE OPERATOR-C Attending Unavailable Natacha Camara STEAMING MACHINE OPERATOR-C Referring Unavailable Primay Care Physicia, No Primary Care Unavailable Natacha Camara STEAMING MACHINE OPERATOR-C Attending Unavailable CINDY JAUREGUI Referring Unavailable JUVENTINOCINDY BOWEN Primary Care Unavailable ShoNatacha balderas STEAMING MACHINE OPERATOR-C Attending Unavailable ShoNatacha balderas STEAMING MACHINE OPERATOR-C Referring Unavailable JUVENTINO, CINDY Primary Care Unavailable Natacha Camara STEAMING MACHINE OPERATOR-C Attending Unavailable JUVENTINO, CINDY Referring Unavailable JUVENTINO, CINDY Primary Care Unavailable Jared Jaimes Attending Unavailable Primay Care Physicia, No Primary Care Unavailable Abril Bazzi PA-C Attending Unavailable Primay Care Physicia, No Referring Unavailable Primay Care Physicia, No Primary Care Unavailable FRANCESCA DENTON MD Attending Unavailable JUVENTINO CUSTOM FEED MILL OPERATOR, CINDY Jerri. Primary Care Unavailable JUVENTINO CUSTOM FEED MILL OPERATOR, CINDY D. Primary Care Unavailable MARIN FOOTE DO Attending Unavailable SHELBY MACIAS MD Attending Unavailable JUVENTINO CUSTOM FEED MILL OPERATOR, CINDY Guthrie. Primary Care Unavailable SHELYB MACIAS MD Attending Unavailable JUVENTINO ROBERT, CINDY Guthrie. Primary Care Unavailable SHELBY MACIAS MD Attending Unavailable JUVENTINO CUSTOM FEED MILL OPERATOR, CINDY D. Primary Care Unavailable SHELBY MACIAS MD Attending Unavailable JUVENTINO ROBERT, CINDY Jerri. Primary Care Unavailable MARY ESPINO Attending Unavailable PHYSICIAN, NONE Primary Care Unavailable SHELBY MACIAS MD Attending Unavailable PHYSICIAN, NONE Primary Care Unavailable SHELBY MACIAS MD Attending Unavailable PHYSICIAN, NONE Primary Care Unavailable Zulay JUSTICE Attending Unavailable Zulay JUSTICE Referring Unavailable PROBLEMS PROBLEMS DATE TYPE CONDITION / CODE ATTENDING STATUS SOURCE 07/10/2018 Unknown Z11.3 - Encounter Edison Daniel for screening for Community infections with a Hospital predominantly Repository sexual mode of transmission / Z11.3(ICD-10) 07/10/2018 Unknown Z12.4 - Encounter Edison Daniel for screening for Community malignant neoplasm [facility] / Repository Z12.4(ICD-10) 06/19/2018 Unknown R73.03 - Natacha Camara Active [facility] Prediabetes / STEAMING MACHINE OPERATOR-C Community R73.03(ICD-10) Hospital Repository 02/28/2018 Unknown E05.90 - Ashelfah, Active [place] Thyrotoxicosis, Ghasem Community unspecified without Hospital thyrotoxic crisis Repository or storm / E05.90(ICD-10) 02/06/2018 Unknown E10.9 - Type 1 Natacha Camara Active [facility] diabetes mellitus STEAMING MACHINE OPERATOR-C Community without Hospital complications / Repository E10.9(ICD-10) 12/10/2017 Unknown E11.9 - Type 2 Natacha Camara Active [facility] diabetes mellitus STEAMING MACHINE OPERATOR-C Community without Hospital complications / Repository E11.9(ICD-10) 12/06/2017 Unknown E07.9 - Disorder of Natacha Camara Active [facility] thyroid, STEAMING MACHINE OPERATOR-C Community unspecified / Hospital E07.9(ICD-10) Repository 10/22/2017 Unknown E11.65 - Type 2 Natacha Camara Active [facility] diabetes mellitus STEAMING MACHINE OPERATOR-C Community with hyperglycemia Hospital / E11.65(ICD-10) Repository PROCEDURES PROCEDURES No Procedure Records FoundRESULTS RESULTS TSH Collected: 08/06/2018 Status: F Source: [facility] 8:21 [facility] REPOSITORY TYPE CODE TESTS RESULT OUT OF RANGE REFERENCE UNITS LAB TSH(LOINC) 0.36-3.74 mcIU/mL High TSH 6.16 Performed By: #### TSH, FT4, FT3, LIPID, CMP, GFR, A1C #### [place] [address] FT4 Collected: 08/06/2018 Status: F Source: [facility] 8:21 [facility] REPOSITORY TYPE CODE TESTS RESULT OUT OF RANGE REFERENCE UNITS LAB FT4(LOINC) 0.76-1.46 ng/dL Free T4 0.95 Performed By: #### TSH, FT4, FT3, LIPID, CMP, GFR, A1C #### [place] [address] FT3 Collected: 08/06/2018 Status: F Source: [facility] 8:21 [facility] REPOSITORY TYPE CODE TESTS RESULT OUT OF RANGE REFERENCE UNITS LAB FT3(LOINC) 2.30-4.00 pg/mL Low Free T3 1.91 Performed By: #### TSH, FT4, FT3, LIPID, CMP, GFR, A1C #### [place] [address] LIPID Collected: 08/06/2018 Status: F Source: [facility] 8:21 [facility] REPOSITORY TYPE CODE TESTS RESULT OUT OF REFERENCE UNITS RANGE LAB CHOL(LOINC 0-200 mg/dL ) Cholesterol High 235 Result Comment: Cholesterol Reference Interval: Less than 200 Desirable 200-239 Borderline high risk 240 and above High risk LAB TRIG(LOINC) 0-150 mg/dL Triglycerides 116 Result Comment: Triglyceride Reference Interval: Less than 150 Normal 150-199 Borderline high risk 200-499 High risk 500 or higher Very high risk LAB HD(LOINC) 40-60 mg/dL HDL High Cholesterol 62 LAB LDL(LOINC) 0-130 mg/dL LDL High Cholesterol 150 Performed By: #### TSH, FT4, FT3, LIPID, CMP, GFR, A1C #### [address] [address] CMP Collected: 08/06/2018 Status: F Source: [facility] 8:[facility] REPOSITORY TYPE CODE TESTS RESULT OUT OF REFERENCE UNITS RANGE LAB GLU(LOINC) 70-105 mg/dL Glucose High Level 107 LAB NA(LOINC) 136-145 mmol/L Sodium Level 141 LAB K(LOINC) 3.5-5.1 mmol/L Potassium Level 4.4 LAB CL(LOINC) 98-107 mmol/L Chloride 104 LAB CO2(LOINC) 22-29 mmol/L CO2 28 LAB EBAL(LOINC mEq/L ) Electrolyte Balance 9.0 LAB BUN(LOINC) 7-18 mg/dL BUN High 20 LAB CRE(LOINC) 0.55-1.02 mg/dL Creatinine Lvl (s) 0.73 LAB BC(LOINC) 7-27 ratio BUN/Creatinine 27 Ratio LAB CA(LOINC) 8.4-10.2 mg/dL Calcium Lvl 9.5 LAB PROT(LOINC 6.4-8.2 G/dL ) Total Protein 6.9 LAB ALB(LOINC) 3.5-5.0 G/dL Albumin Level 3.6 LAB GLB(LOINC) G/dL Globulin 3.3 LAB AG(LOINC) 1.1-2.5 ratio A/G Ratio 1.1 LAB BILT(LOINC 0.2-1.0 mg/dL ) Bili Total 0.2 LAB AP(LOINC) 40-135 U/L Alk Phos 45 LAB AST(LOINC) 10-40 U/L AST/SGOT 11 LAB ALT(LOINC) 10-35 U/L ALT/SGPT 21 Performed By: #### TSH, FT4, FT3, LIPID, CMP, GFR, A1C #### [address] [address] .GFR Collected: 08/06/2018 Status: F Source: [facility] 8:21 AM [facility] REPOSITORY TYPE CODE TESTS RESULT OUT OF REFERENCE UNITS RANGE LAB GFRAA(LOINC ml/min/1.73 ) sqm GFR 118 Ukrainian Result Comment: GFR Population mean for , Non- Americans Ages 20-29 = 116 mL/min/1.73 sq.m. Ages 30-39 = 107 mL/min/1.73 sq.m. Ages 40-49 = 99 mL/min/1.73 sq.m. Ages 50-59 = 93 mL/min/1.73 sq.m. Ages 60-69 = 85 mL/min/1.73 sq.m. Ages 70+ = 75 mL/min/1.73 sq.m. Chronic Kidney Disease: Less than 60 mL/min/1.73 square meters End Stage Renal Disease: Less than 15 mL/min/1.73 square meters LAB GFRNO(LOINC) ml/min/1.73sqm GFR Non- 97 Result Comment: GFR Population mean for , Non- Americans Ages 20-29 = 116 mL/min/1.73 sq.m. Ages 30-39 = 107 mL/min/1.73 sq.m. Ages 40-49 = 99 mL/min/1.73 sq.m. Ages 50-59 = 93 mL/min/1.73 sq.m. Ages 60-69 = 85 mL/min/1.73 sq.m. Ages 70+ = 75 mL/min/1.73 sq.m. Chronic Kidney Disease: Less than 60 mL/min/1.73 square meters End Stage Renal Disease: Less than 15 mL/min/1.73 square meters Performed By: #### TSH, FT4, FT3, LIPID, CMP, GFR, A1C #### [address] [address] A1C Collected: 08/06/2018 Status: F Source: [facility] 8:21 AM [facility] REPOSITORY TYPE CODE TESTS RESULT OUT OF RANGE REFERENCE UNITS LAB A1C(LOINC) 4.5-6.2 % Hgb A1c 6.0 Performed By: #### TSH, FT4, FT3, LIPID, CMP, GFR, A1C #### [address] [address] HIV - [facility] Collected: 07/10/2018 Status: F Source: [place] 2:20 PM [facility] REPOSITORY TYPE CODE TESTS RESULT OUT OF RANGE REFERENCE UNITS LAB L3890.6005 Nonreactive Normal HIV - [facility] Non-Reactive Performed By: #### L3890.6005 #### [facility] [address] [facility] [place], [place], [address] RAPID PLASMIN REAGIN Collected: 07/10/2018 Status: F Source: [facility] (RPR) 2:20 PM [facility] REPOSITORY TYPE CODE TESTS RESULT OUT OF REFERENCE UNITS RANGE LAB L700.5000 NONREACTIVE NONREACTIVE Normal RPR Performed By: #### L700.5000 #### [facility] [address] [place], [place], [id number] HEPATITIS B SURFACE Collected: 07/10/2018 Status: F Source: [facility] [place] 2:20 PM [facility] REPOSITORY TYPE CODE TESTS RESULT OUT OF RANGE REFERENCE UNITS LAB L3100.0400 Negative Normal HB Negative SURF AG Result Comment: Performed at: - [facility] [id number] Date Night Sitter: Kevin Butler PhD, Phone: [phone] Performed By: #### L3100.0390, L3100.0625 #### [facility] (refer to report for specific site) refer to report for address and phone number HEPATITIS C ANTIBODIES Collected: 07/10/2018 Status: F Source: [place] 2:20 PM [facility] REPOSITORY TYPE CODE TESTS RESULT OUT OF RANGE REFERENCE UNITS LAB L3100.0650 0.0-0.9 s/co ratio Normal HEP C AB <0.1 Result Comment: Negative: < 0.8 Indeterminate: 0.8 - 0.9 Positive: > 0.9 The CDC recommends that a positive HCV antibody result be followed up with a HCV Nucleic Acid Amplification test (802082). Performed By: #### L3100.0390, L3100.0625 #### [facility] (refer to report for specific site) refer to report for address and phone number CT/NG [facility] BY PCR Collected: 07/10/2018 Status: F Source: [place] 2:05 PM [facility] REPOSITORY TYPE CODE TESTS RESULT OUT OF RANGE REFERENCE UNITS LAB L8200.2100 Negative Normal Chlam Negative Trac PCR LAB L8200.2200 Negative Normal NG by Negative PCR Performed By: #### L8200.2000 #### [facility] [address] [place], [address] PAP I-G W/RFX HRHPV Collected: 07/10/2018 Status: F Source: [place] 2:05 PM [facility] REPOSITORY Order Comment: CYTOLOGY INFORMATION: - CLINICAL INFORMATION: - DATE LMP/MENOPAUSE: 06/27/18 LMP - COLLECTION VIAL: Thin Prep Vial - AIRBRUSH ARTIST SOURCE: CERVICAL/ENDOCERVICAL - COLLECTION TECHNIQUE: BRUSH/SPATULA Specimen Comment: [id number] Specimen Comment: Source.............Cervix;Endocervix Specimen Comment: LMP / Prev Treat...[id number] Specimen Comment: No. of containers..01 ThinPrep Vial TYPE CODE TESTS RESULT OUT OF RANGE REFERENCE UNITS LAB L7400.0800 . Normal DIAGN Comment Result Comment: NEGATIVE FOR INTRAEPITHELIAL LESION AND MALIGNANCY. LAB L7400.0900 . Normal ADEQ Comment Result Comment: Satisfactory for evaluation. Endocervical and/or squamous metaplastic cells (endocervical component) are present. LAB L7400.1400 . Normal PERFORM Comment Result Comment: Twila Knowles, Resident Assistant Cna (ASCP) LAB L7400.2575 . Normal TEST METHOD Comment Result Comment: This liquid based ThinPrep(R) pap test was screened with the use of an image guided system. LAB L7400.2600 . Normal . COMM LAB L7400.2700 . Normal PAPSMR Comment Result Comment: The Pap smear is a screening test designed to aid in the detection of premalignant and malignant conditions of the uterine cervix. It is not a diagnostic procedure and should not be used as the sole means of detecting cervical cancer. Both false-positive and false-negative reports do occur. LAB L7400.2800 . Normal HPV RFLX Comment Result Comment: The HPV DNA reflex criteria were not met with this specimen result therefore, no HPV testing was performed. Performed at: [address] [id number] Date Night Sitter: Chastity Quintero MD, Phone: [phone] Performed By: #### L7400.0350 #### [facility] (refer to report for specific site) refer to report for address and phone number PROGRESS Observed: 07/07/2018 Status: COMPLETED Source: [place] 2:24 PM [facility] REPOSITORY HNO ID: [id number] Author: Francisco Echols) Belinda Service: (none) Author Type: Physician Quality Lead Type: Progress Notes Filed: 07/07/2018 2:36 PM Note Text: Subjective HPI Patient presents with a chief complaint of cough over the past 9 days. 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 No fever. She is a type II diabetic and recently started metformin a couple of days ago for this. States she also had her thyroid removed for multiple nodules this summer. She denies vomiting or diarrhea. She is not a smoker, no hx of asthma. Review of Systems Constitutional: Negative. HENT: Positive for congestion and sore throat. Eyes: Negative. Respiratory: Positive for cough. Negative for hemoptysis, sputum production, shortness of breath and wheezing. Cardiovascular: Negative. Gastrointestinal: Negative. Genitourinary: Negative. Skin: Negative. All other systems reviewed and are negative. 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 Disp: 60 tablet Rfl: 2 blood sugar diagnostic (FREESTYLE INSULINX TEST STRIPS) test strip Test blood sugar(s) 3 times daily. Dx: Type 2 DM - Uncontrolled E11.65 Insulin: No Disp: 150 Strip Rfl: 2 Blood-Glucose Meter (FREESTYLE INSULINX) misc Dx: Type 2 DM - Uncontrolled E11.65 Disp: 1 Each Rfl: 0 lancets (FREESTYLE LANCETS) 28 gauge misc Test blood sugar(s) 2 times daily. Dx: Type 2 DM - Uncontrolled E11.65 Insulin: No Disp: 100 Each Rfl: 2 benzonatate (TESSALON PERLE) 100 mg capsule Take 2 capsules by mouth three times daily as needed. Disp: 30 capsule Rfl: 0 azithromycin (ZITHROMAX Z-ELLEN) 250 mg tablet Take 2 tablets (500 mg) by mouth on day 1, then take 1 tablet (250 mg) by mouth for 4 days. Disp: 6 tablet Rfl: 0 No current facility-administered medications for this visit. PAST SURGICAL HISTORY Procedure Laterality Date - NONE FAMILY HISTORY Problem Relation Age of Onset - None Mother - Hypertension Father - Hyperlipidemia Father - None Sister Social History Substance Use Topics - Smoking status: Former Smoker Quit date: 02/27/2017 - Smokeless tobacco: Never Used - Alcohol use No BP 102/68 Pulse 73 Temp 37.3 ?C (99.2 ?F) (Left Tympanic) Resp 16 Wt 57.7 kg (127 lb 3.2 oz) SpO2 98% BMI 21.83 kg/m? Objective Physical Exam Constitutional: She is oriented to person, place, and time and well-developed, well-nourished, and in no distress. HENT: Head: Normocephalic and atraumatic. Right Ear: Tympanic membrane, external ear and ear canal normal. Left Ear: External ear and ear canal normal. Nose: Mucosal edema and rhinorrhea present. Mouth/Throat: Uvula is midline, oropharynx is clear and moist and mucous membranes are normal. Neck: Normal range of motion. Neck supple. Cardiovascular: Normal rate, regular rhythm and normal heart sounds. Pulmonary/Chest: Effort normal and breath sounds normal. Lymphadenopathy: She has no cervical adenopathy. Neurological: She is alert and oriented to person, place, and time. Skin: Skin is warm and dry. Psychiatric: Affect and judgment normal. Nursing note and vitals reviewed. ASSESSMENT/PLAN: 1. Protracted URI - ICD9: 465.9, ICD10: J06.9 Discussed that this is likely still viral. I will give her Tessalon for cough. Recommended that she wait for 5 days before filling the Z-Ellen. Her lungs are clear. She is actually well. Patient was agreeable with this plan. FELICE Donis Observed: 07/07/2018 Status: COMPLETED Source: [place] 2:15 PM [facility] REPOSITORY Office Visit (WSTR) BRIT COTTO ([id number]) 1990 F Date Time Provider Department 07/07/18 2:15 PM FRANCISCO KUO) [facility] During your visit today, we recorded the following information about you: Temperature Pulse Respiration Blood pressure 99.2 degrees 73/minute 16/minute 102/68 Weight 57.7 kg Francisco Kuo PA-C 07/07/2018 2:36 PM Signed Subjective HPI Patient presents with a chief complaint of cough over the past 9 days. 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 No fever. She is a type II diabetic and recently started metformin a couple of days ago for this. States she also had her thyroid removed for multiple nodules this summer. She denies vomiting or diarrhea. She is not a smoker, no hx of asthma. Review of Systems Constitutional: Negative. HENT: Positive for congestion and sore throat. Eyes: Negative. Respiratory: Positive for cough. Negative for hemoptysis, sputum production, shortness of breath and wheezing. Cardiovascular: Negative. Gastrointestinal: Negative. Genitourinary: Negative. Skin: Negative. All other systems reviewed and are negative. 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 Disp: 60 tablet Rfl: 2 blood sugar diagnostic (FREESTYLE INSULINX TEST STRIPS) test strip Test blood sugar(s) 3 times daily. Dx: Type 2 DM - Uncontrolled E11.65 Insulin: No Disp: 150 Strip Rfl: 2 Blood-Glucose Meter (FREESTYLE INSULINX) [facility] Dx: Type 2 DM - Uncontrolled E11.65 Disp: 1 Each Rfl: 0 lancets (FREESTYLE LANCETS) 28 gauge misc Test blood sugar(s) 2 times daily. Dx: Type 2 DM - Uncontrolled E11.65 Insulin: No Disp: 100 Each Rfl: 2 benzonatate (TESSALON PERLE) 100 mg capsule Take 2 capsules by mouth three times daily as needed. Disp: 30 capsule Rfl: 0 azithromycin (ZITHROMAX Z-ELLEN) 250 mg tablet Take 2 tablets (500 mg) by mouth on day 1, then take 1 tablet (250 mg) by mouth for 4 days. Disp: 6 tablet Rfl: 0 No current facility-administered medications for this visit. PAST SURGICAL HISTORY Procedure Laterality Date - NONE FAMILY HISTORY Problem Relation Age of Onset - None Mother - Hypertension Father - Hyperlipidemia Father - None Sister Social History Substance Use Topics - Smoking status: Former Smoker Quit date: 02/27/2017 - Smokeless tobacco: Never Used - Alcohol use No BP 102/68 Pulse 73 Temp 37.3 ?C (99.2 ?F) (Left Tympanic) Resp 16 Wt 57.7 kg (127 lb 3.2 oz) SpO2 98% BMI 21.83 kg/m? Objective Physical Exam Constitutional: She is oriented to person, place, and time and well-developed, well-nourished, and in no distress. HENT: Head: Normocephalic and atraumatic. Right Ear: Tympanic membrane, external ear and ear canal normal. Left Ear: External ear and ear canal normal. Nose: Mucosal edema and rhinorrhea present. Mouth/Throat: Uvula is midline, oropharynx is clear and moist and mucous membranes are normal. Neck: Normal range of motion. Neck supple. Cardiovascular: Normal rate, regular rhythm and normal heart sounds. Pulmonary/Chest: Effort normal and breath sounds normal. Lymphadenopathy: She has no cervical adenopathy. Neurological: She is alert and oriented to person, place, and time. Skin: Skin is warm and dry. Psychiatric: Affect and judgment normal. Nursing note and vitals reviewed. ASSESSMENT/PLAN: 1. Protracted URI - ICD9: 465.9, ICD10: J06.9 Discussed that this is likely still viral. I will give her Tessalon for cough. Recommended that she wait for 5 days before filling the Z- Ellen. Her lungs are clear. She is actually well. Patient was agreeable with this plan. Francisco Kuo PA-C Referring Provider: SELF [[id number]] Allergies As of Date: 07/07/2018 Noted Allergy Reaction Rey rubalcava [Other] 09/29/2011 14 - Other: See Comments Comments: Face breaks out in purple spots when she eats [employer]. Date Reviewed: 07/07/2018 Reviewed by: Delmis Velez Ma - Fully Assessed Reason for Visit: Sinusitis [127] Cmt: x 9 days Primary Visit Diagnosis:Protracted URI [J06.9] Order(s):benzonatate (TESSALON PERLE) 100 mg capsuleTake 2 capsules by mouth three times daily as needed.Disp: 30 capsuleRfl: 0 azithromycin (ZITHROMAX Z-ELLEN) 250 mg tabletTake 2 tablets (500 mg) by mouth on day 1, then take 1 tablet (250 mg) by mouth for 4 days.Disp: 6 tabletRfl: 0 Prescriptions as of 07/07/2018 Sig: METFORMIN ER 500 MG TABLET,EX* Take 1 tablet by mouth twice * BLOOD SUGAR DIAGNOSTIC STRIPS Test blood sugar(s) 3 times d* BLOOD-GLUCOSE METER Dx: Type 2 DM - Uncontrolled * LANCETS 28 GAUGE Test blood sugar(s) 2 times d* BENZONATATE 100 MG CAPSULE Take 2 capsules by mouth thre* AZITHROMYCIN 250 MG TABLET Take 2 tablets (500 mg) by mo* Problem List As Of Date 07/07/2018 Noted Resolved Toxic uninodular goiter [E05.10] INVALID FOR* Uncontrolled type 2 diabetes mellitus without c*INVALID FOR* Prescriptions ordered this encounter Disp Refills Start End BENZONATATE 100 MG CAPSULE 30 c* 0 07/07/2018 Route: ORAL Sig: Take 2 capsules by mouth three times daily as needed. AZITHROMYCIN 250 MG TABLET 6 ta* 0 07/07/2018 Class: Print RX Sig: Take 2 tablets (500 mg) by mouth on day 1, then take 1 tablet (250 mg) by mouth for 4 days. Letter Text Francisco Kuo PA-C Urgent Care [address] [facility] [address] Dept: [phone] 07/07/2018 Brit Cotto [address] [facility] [address] To Whom it May Concern: This is to certify that Brit Cotto was seen at our office for medical care. Brit may return to work on 07/08/2018. If you have any questions please feel free to call. Sincerely: Francisco Kuo PA-C Encounter Status:Closed by FRANCISCO KUO PA-C on 07/07/18 ENDOCRINOLOGY VISIT Observed: 06/30/2018 Status: F Source: [place] 4:36 PM [facility] REPOSITORY [facility] [address] [place] [address] OFFICE VISIT Date of Service: 06/26/18 MR#: [id number] Acct: [id number] Name: BRIT COTTO Rep #: [id number] : 1990 Provider: Natacha Camara NP Age/Sex: 27/F Location[place] [facility] Status: Signed HPI History of present illness BRIT COTTO presents today for a follow up regarding concerns of her blood sugar. She had been referred to Dr. Macias who has undiagnosed her diabetes and has stopped her insulin. Brit is here today to discuss her increased blood glucose levels. She reports she has continued to follow a keto diet. I had ask her at last visit to cease with this diet. She did not start metformin as of this time. She does tell me a CGM was done by Dr. Macias and her BG readings were all within normal range and she also states she was found to have normal insulin levels. Fasting BG done here at [facility] 110. More recently she repeated this lab abd glucose was 127. A1c 6.1 At time of visit: -Pt denies symptoms of hypertensive emergency (CP,SOB,KIDD, or blurred vision) and hypotension(dizziness or lightheadedness) -Pt denies symptoms of hypoglycemia ( sweaty, confusion, anxiety, tremor, hunger, palpitations) and hyperglycemia ( polydipsia, polyuria) -Pt denies potential medication adverse effect. Hypoglycemia Aware of hypoglycemia: When awake Able to self treat low BG: Yes Frequent low Blood sugar: No Has supply of glucagon: Yes SMBG No BG readings today for review. Reports she is checking 4+ times daily Diet Mostly keto diet which she has been ask not to use. Exercise Reports routine daily exercise Const General: comfortable Nutritional Appearance: well nourished Orientation: oriented x3 HENMT Head: normal to inspection, atraumatic Ears: hearing grossly normal bilaterally Nose: external nose normal Face and sinus: normal facial exam Mouth: oral mucosae normal, moist mucous membranes Teeth and gingiva: dentition normal Eyes General: appearance normal, both eyes and all related structures Eyelids: eyelids normal Conjunctivae: conjunctivae normal Sclera: sclerae normal Neck Neck: normal visual inspection Neck mass: No Thyroid: other (No swelling Well healing scar) Resp Effort AND Inspection: normal respiratory effort, able to speak in complete sentences, symmetric chest movement Cardio Rate: regular rate Rhythm: regular rhythm Musc Musculoskeletal: No muscle weakness Skin General: no rashes or lesions noted Wounds: no wounds Neuro General: moves all extremities, oriented x3 Cognition: normal cognition Speech: speech normal Gait: normal gait Motor: muscle tone normal throughout Extrem General: normal to inspection, full ROM, normal capillary refill, no pedal edema Psych Appearance: grossly normal Mental Status: mental status grossly normal Mood: congruent mood Affect: normal affect Speech and Movement: speech and movement normal Attitude: cooperative Thought Process: normal Thought Content: normal Judgment: judgment good Cardiopulmonary symptoms: Denies chest pain at rest or dizziness GI symptoms: Denies diarrhea, constipation, nausea/dyspepsia, vomiting or increased hunger Other symptoms: Denies change in vision or depression Type: undetermined Weight and fatigue symptoms: Denies snoring Cardiopulmonary symptoms: Denies chest pain at rest, dyspnea on exertion, lightheadedness or myalgias GI symptoms: Denies constipation, diarrhea, nausea/dyspepsia or vomiting Skin and extremity symptoms: Denies tingling/numbness/burning or foot ulcers Other symptoms: Denies blurry vision or change in vision Pertinent visit history: Denies recent visit to ER, recent hospital admission, recent DKA or recent 911 calls Intake Vital Signs06/26/18 Body Mass Index (BMI) 23.0 Intake Visit Reasons: 1 week follow up 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: No Accompanied by: Self Allergies No Known Allergies Allergy (Verified 06/26/18 08:23) Medications blood sugar diagnostic strips See Dose Instructions .ROUTE .MEDSUPPLY #120 ea 01/09/18 [Rx Confirmed 06/26/18] Insulin Glargine,Hum.rec.anlog [Basaglar Kwikpen U-100] 3 unit SC QDAY 02/08/18 [History Confirmed 06/26/18] Norgestimate-Ethinyl Estradiol [Fisher-Linyah 28 Tablet] 1 ea PO DAILY 02/08/18 [History Confirmed 06/26/18] Levothyroxine Sodium [Levoxyl] 100 mcg PO DAILY #30 tab 02/15/18 [Rx Confirmed 06/26/18] pen needle, diabetic 32 gauge x See Dose Instructions .ROUTE .MEDSUPPLY #100 ea 03/12/18 [Rx Confirmed 06/26/18] liothyronine 5 mcg tablet 5 mcg PO DAILY 05/15/18 [History Confirmed 06/26/18] metformin ER 500 mg tablet,extended release 24hr 500 mg PO BID #60 tab NS 06/19/18 [Rx Confirmed 06/26/18] Nurse's Note: blood sugars : low : 80 high : 140 PFSH Medical History Diabetes type 2, controlled (Acute) Polycystic ovarian disease (Chronic) Sleep apnea (Acute) Graves disease (Acute) Hyperthyroidism (Acute) Surgical History Hx of thyroidectomy (Acute) Family History Father Hypertension Social History Smoking Status: Former smoker second hand exposure: No alcohol intake: never substance use type: does not use what type of physical activity do you participate in: running, walking, bicycling, weight training frequency: 3-4 times per week seatbelt use: always ROS Const Constitutional: No anorexia, body ache, chills, fatigue, fever(s), frequent falls, decreased energy, malaise, night sweats, weakness, weight change, sleep problems, abnormal sleep pattern, change in appetite, other, headache(s), snoring or excessive sweating Eyes Eyes: No blurry vision, change in vision, double vision, discharge, dry eyes, bulging eyes, floaters, visual disturbances, eye pain, light sensitivity, spots in vision, tunnel vision or other ENT ENT: No abnormal hearing, ear pain, ear discharge, ear pressure, hearing loss, tinnitus, dizziness/vertigo, balance problems, nosebleed/epistaxis, nasal congestion, nasal obstruction, nose pain, sinus pressure, sinus pain, nasal discharge, post nasal drip, headache(s), facial pain, dental pain, dry mouth, bad breath, hoarseness, lip swelling, mouth lesions, mouth pain, sore throat, tongue swelling, throat swelling, other, difficulty swallowing or neck pain Resp Respiratory: No cough, change in phlegm color, chest congestion, excessive phlegm production, hemoptysis, pain on inspiration, shortness of breath, pain with cough, snoring, stridor, wheezing or other Cardio Cardiology: No chest pain at rest, chest pain with exertion, leg pain with exertion, excessive sweating, shortness of breath, dyspnea on exertion, generalized swelling, irregular heart rhythm, lightheadedness, orthopnea, radiating jaw, neck or arm pain, fast heart rate, slow heart rate, palpitations or other Gastro GI: No abdominal pain, belching, bloating, change in bowel habits, change in stool character, coffee ground emesis, constipation, cramping, diarrhea, heartburn, difficulty swallowing, feeling full early, excessive flatus, incontinent of stools, Vomiting blood/hematemesis, blood in stool, loose stools, Black,tarry stools, nausea/dyspepsia, pain with swallowing, vomiting or other Genitourinary-Female: No difficulty urinating, burning urination, painful urination, urinary incontinence, urinary frequency, urinary urgency, urinary hesitancy, urinary retention, blood in urine, Frequent nighttime urination/ nocturia, post void dribbling, suprapubic fullness, side pain, sexual problems, genital lesions, genital itching, hot flashes, abnormal periods, abnormal vaginal bleeding, absent period, painful periods, light periods, heavy periods, difficulty getting , painful intercourse, pelvic pain, vaginal dryness, vaginal odor, Vaginal Itching or other Musc Musculoskeletal: No abnormal walking, joint pain, back pain, deformity, joint swelling, limited range of motion, loss of height, muscle cramps, muscle weakness, decreased muscle mass, body aches, neck pain, numbness, radiating pain into limb, stiffness, tingling or other Skin Skin: No acne, hair loss, change in hair, nail changes, boil, change in skin color, dry skin, redness, excessive hair growth, yellowing of the skin, lesions, itching, rash, skin pain, skin ulcer, sores, skin swelling, wounds or other Breast Breast: No other Neuro Neurology: No frequent falls, weakness, visual disturbances, abnormal hearing, headache(s), abnormal walking, numbness or tingling Psych Psychiatric: No abnormal sleep pattern, No change in appetite Endo Endocrine: No fatigue, other or excessive sweating Aller/Imm Allergy/Immunologic: No lip swelling, tongue swelling, throat swelling, wheezing or itchy eyes Assessment AND Plan Problems 1. Abnormal laboratory test R89.9 Plan Patient is here to review recent lab results.A1c is 6.1 even on her self imposed strict keto diet. I have again ask her not to follow this diet Review of her cholesterol notes dramatic increase in her levels. She is ask to start metformin as directed a week ago and to resume low carb diet. She will call with her Bg readings in the next 4-5 days. Discussed in depth the idea that eating no carbs is not going to provide us with accurate labs. Will recheck GADCAB values. Plan Detail Additional Comments 1. Please schedule follow up in 1 month 2. Lab work one week before appointment. 3. Discussed importance of regular exercise and recommend starting or continuing a regular exercise program for good health. 4. The patient was encouraged to maintain weight for good health 5. The importance of monitoring blood sugar regularly was reviewed. 6. The importance of monitoring the HBA1c level regularly was reviewed. 7. The importance of proper foot care and regularly checking feet to prevent sores and loss of limbs was reviewed. 8. The importance of keeping BP at or below 130/80 to prevent stroke, heart attacks, kidney failure, blindness was reviewed. Spent approximately 30 minutes with patient with over 50% of time spent in discussion and counseling regardinglab values, diet, and follow up. Coding Level of Care Code Off vis,est,level 4 Diagnoses Abnormal laboratory test R89.9 06/30/18 1636 <Electronically signed by Natacha POPE> Date Natacha POPE Cosigner Signature: Date (if applicable) CC: HEMOGLOBIN A1C Collected: 06/24/2018 Status: F Source: [place] 9:35 AM [facility] REPOSITORY TYPE CODE TESTS RESULT OUT OF RANGE REFERENCE UNITS LAB L501.9985 4.2-6.3 % Normal HGB A1C 6.1 Performed By: #### L501.9985 #### [facility] [address] [place], [address] MICROALB:CREAT Collected: 06/24/2018 Status: F Source: [place] RATIO,RANDOM UR 9:35 AM [facility] REPOSITORY TYPE CODE TESTS RESULT OUT OF RANGE REFERENCE UNITS LAB L501.1200 NO RANGE EST. mg/dL Normal UR CREAT 103.00 LAB L502.0500 NO RANGE EST. mg/L Normal 12.8 MICROALBUMIN ,UR LAB L502.0600 <30 mg/g CRE mg/g CRE Normal 12.4 MALB:CREAT Performed By: #### L502.0250 #### [facility] [address], [address] COMPREHENSIVE METABOLIC Collected: 06/24/2018 Status: F Source: [place] PROFIL 9:35 AM [facility] REPOSITORY TYPE CODE TESTS RESULT OUT OF RANGE REFERENCE UNITS LAB L501.0100 74-106 mg/dL High GLU 127 Result Comment: Fasting Glucose result greater than or equal to 126 mg/dL suggests DIABETES MELLITUS per A.D.A. criteria. Please note revised GLUCOSE reference range effective 2017. LAB L501.1000 7-18 mg/dL Normal BUN 14 LAB L501.1100 0.55-1.02 mg/dL Normal CREAT,SERUM 0.75 Result Comment: The validity of the calculated GFR AND GFRAA in patients over 70 years has not been determined. Clinical correlation is essential. LAB L501.1110 >60 mL/min Normal EST GFR 100 Result Comment: Non- GFR Calc LAB L501.1115 >60 mL/min Normal EST GFR - AA 121 Result Comment: GFR Calc LAB L501.1300 10-20 RATIO Normal BUN/CRE 18.7 LAB L501.1500 6.4-8.2 g/dL T Normal PROT 6.9 LAB L501.1800 3.2-5.0 g/dL Normal ALB 3.2 LAB L501.1950 2.2-4.2 g/dL Normal GLOB 3.7 LAB L501.2000 0.9-2.4 RATIO Normal A/G 0.9 LAB L501.2200 8.5-10.1 mg/dL CA Normal 8.8 LAB L501.4100 15-37 U/L Low AST 12 LAB L501.4305 45-117 U/L Low ALK P 44 LAB L501.4405 13-56 U/L Normal ALT 21 LAB L501.4600 0.20-1.00 mg/dL T Normal BILI 0.30 LAB L501.5300 136-145 mmol/L NA Normal 139 LAB L501.5600 3.5-5.1 mmol/L K Normal 4.0 LAB L501.5900 98-107 mmol/L CL Normal 104 LAB L501.6100 21.0-32.0 mmol/L Normal CO2 23.0 LAB L501.6200 5-15 Normal GAP 12 Performed By: #### L500.4050, L500.4100 #### [facility] [address] [place], [place], [id number] LIPID PROFILE Collected: 06/24/2018 Status: F Source: [place] 9:35 AM [facility] REPOSITORY TYPE CODE TESTS RESULT OUT OF RANGE REFERENCE UNITS LAB L501.4900 200 mg/dL High CHOL 310 Result Comment: <200 mg/dL Desirable 200-240 mg/dL Borderline >240 mg/dL High Risk LAB L501.5000 mg/dL Normal TRIG 76 Result Comment: The drugs N-Acetylcysteine and Metamizole may falsely depress this assay. Serum Triglycerides Reference Interval Normal <150 mg/dL Borderline high 150 - 199 mg/dL High 200 - 499 mg/dL Very High > or = 500 mg/dL LAB L501.6400 mg/dL Normal HDL 63 Result Comment: The drugs N-Acetylcysteine and Metamizole may falsely depress this assay. Reference Range HDL <40 mg/dL Low HDL Cholesterol HDL >or= 60 mg/dL High HDL Cholesterol LAB L501.6500 0-130 mg/dL High LDL 232 LAB L501.6600 5-40 mg/dL Normal VLDL 15 Performed By: #### L500.4050, L500.4100 #### [facility] [address] [place], [place], [id number] ENDOCRINOLOGY VISIT Observed: 06/23/2018 Status: F Source: [place] 3:10 PM [facility] REPOSITORY [facility] [address] [place] [address] OFFICE VISIT Date of Service: 06/19/18 MR#: [id number] Acct: [id number] Name: BRIT COTTO Rep #: [id number] : 1990 Provider: Natacha Camara NP Age/Sex: 27/F Location[place] [facility] [place] Status: Signed HPI History of present illness BRIT COTTO presents today for a follow up regarding concerns of her blood sugar. She had been referred to Dr. Macias who has undiagnosed her diabetes and has stopped her insulin. Brit is here today to discuss her increased blood glucose levels. She reports she has continued to follow a keto diet and was told she does not need to worry about her BG readings unless they remain over 200. She does tell me a CGM was done by Dr. Macias and her BG readings were all within normal range and she also states she was found to have normal insulin levels. Fasting BG done here at [facility] 110. At time of visit: -Pt denies symptoms of hypertensive emergency (CP,SOB,KIDD, or blurred vision) and hypotension(dizziness or lightheadedness) -Pt denies symptoms of hypoglycemia ( sweaty, confusion, anxiety, tremor, hunger, palpitations) and hyperglycemia ( polydipsia, polyuria) -Pt denies potential medication adverse effect. Hypoglycemia Aware of hypoglycemia: When awake Able to self treat low BG: Yes Frequent low Blood sugar: No Has supply of glucagon: Yes SMBG am 108-128 12n 97-120 5p 77-110 9p 95-102 Diet Mostly keto diet which she has been ask not to use. Exercise Reports routine daily exercise Const General: comfortable Nutritional Appearance: well nourished Orientation: oriented x3 [facility] Head: normal to inspection, atraumatic Ears: hearing grossly normal bilaterally Nose: external nose normal Face and sinus: normal facial exam Mouth: oral mucosae normal, moist mucous membranes Teeth and gingiva: dentition normal Eyes General: appearance normal, both eyes and all related structures Eyelids: eyelids normal Conjunctivae: conjunctivae normal Sclera: sclerae normal Neck Neck: normal visual inspection Neck mass: No Thyroid: other (No swelling Well healing scar) Resp Effort AND Inspection: normal respiratory effort, able to speak in complete sentences, symmetric chest movement Cardio Rate: regular rate Rhythm: regular rhythm Musc Musculoskeletal: No muscle weakness Skin General: no rashes or lesions noted Wounds: no wounds Neuro General: moves all extremities, oriented x3 Cognition: normal cognition Speech: speech normal Gait: normal gait Motor: muscle tone normal throughout Extrem General: normal to inspection, full ROM, normal capillary refill, no pedal edema Psych Appearance: grossly normal Mental Status: mental status grossly normal Mood: congruent mood Affect: normal affect Speech and Movement: speech and movement normal Attitude: cooperative Thought Process: normal Thought Content: normal Judgment: judgment good Cardiopulmonary symptoms: Denies chest pain at rest or dizziness GI symptoms: Denies diarrhea, constipation, nausea/dyspepsia, vomiting or increased hunger Other symptoms: Denies change in vision or depression Intake Vital Signs06/19/18 Height 5 ft 3 in 06/19/18 Weight: 130 lb 06/19/18 Body Mass Index (BMI) 23.0 06/19/18 Blood Pressure 111/73 06/19/18 Blood Pressure Location Lt brachial Intake Visit Reasons: 1 M FU 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: No Is patient in pain?: No Allergies No Known Allergies Allergy (Verified 06/19/18 14:05) Medications blood sugar diagnostic strips See Dose Instructions .ROUTE .MEDSUPPLY #120 ea 01/09/18 [Rx Confirmed 06/19/18] Insulin Glargine,Hum.rec.anlog [Basaglar Temoikpen U-100] 3 unit SC QDAY 02/08/18 [History Confirmed 05/15/18] Norgestimate-Ethinyl Estradiol [Fisher-Linyah 28 Tablet] 1 ea PO DAILY 02/08/18 [History Confirmed 06/19/18] Levothyroxine Sodium [Levoxyl] 100 mcg PO DAILY #30 tab 02/15/18 [Rx Confirmed 06/19/18] pen needle, diabetic 32 gauge x 32 See Dose Instructions .ROUTE .MEDSUPPLY #100 ea 03/12/18 [Rx Confirmed 06/19/18] liothyronine 5 mcg tablet 5 mcg PO DAILY 05/15/18 [History Confirmed 06/19/18] metformin ER 500 mg tablet,extended release 24hr 500 mg PO BID #60 tab NS 06/19/18 [Rx Confirmed 06/19/18] Patient : No Nurse's Note: change to control med [facility] Medical History Diabetes type 2, controlled (Acute) Polycystic ovarian disease (Acute) Sleep apnea (Acute) Graves disease (Acute) Hyperthyroidism (Acute) Surgical History Hx of thyroidectomy (Acute) Family History Father Hypertension Social History Smoking Status: Former smoker second hand exposure: No alcohol intake: never substance use type: does not use what type of physical activity do you participate in: running, walking, bicycling, weight training frequency: 3-4 times per week seatbelt use: always ROS Const Constitutional: No chills or fever(s) Eyes Eyes: No change in vision ENT ENT: No nasal discharge, ear discharge, nosebleed/epistaxis or ear pain Resp Respiratory: No cough or shortness of breath Cardio Cardiology: No chest pain at rest, chest pain with exertion or generalized swelling Gastro GI: No abdominal pain, diarrhea, constipation, nausea/dyspepsia or vomiting Genitourinary-Female: No urinary urgency or difficulty urinating Musc Musculoskeletal: No back pain or muscle weakness Skin Skin: No lesions or rash Neuro Neurology: No fainting or dizziness Psych Psychiatric: No anxiety, No depression Endo Endocrine: No increased thirst/drinking or increased hunger Nikita/Lymp Hematologic/Lymphatic: No easy bleeding or easy bruising Assessment AND Plan Problems 1. Polycystic ovarian disease E28.2 2. Hyperglycemia, unspecified R73.9 Plan Long discussion with patient that if her BG are in good range and her C peptide is normal I can not treat her for diabetes. I can provide metformin for her PCOS. We discussed that if she followed a normal diet that if her BG were actually abnormal they may actually be captured on her labs or meter. She agrees to follow a normal 1500 calorie diet over the next week and RTC with her BG well documented. Control portions Food selections should be healthy Avoid snacks and desserts. Drink water Exercise daily Eat more fresh foods, not canned or processed Eat more slowly Orders Orders: Medications New: Plan Detail Additional Comments 1. Please schedule follow up in 1 week 2. Lab worknot needed. 3. Discussed importance of regular exercise and recommend starting or continuing a regular exercise program for good health. 4. The patient was encouraged to maintain weight for good health 5 Spent approximately 30 minutes with patient with over 50% of time spent in discussion and counseling regarding medication adjustment, symptoms and treatment of hypoglycemia, diet adherence, and checking BG before driving. Coding Level of Care Code Off vis,est,level 4 Diagnoses Polycystic ovarian disease E28.2 Hyperglycemia, unspecified R73.9 06/23/18 1510 <Electronically signed by Natacha POPE> Date Natacha POPE Cosigner Signature: Date (if applicable) CC: GLUCOSE Collected: 06/06/2018 Status: F Source: [place] 10:19 AM [facility] REPOSITORY TYPE CODE TESTS RESULT OUT OF RANGE REFERENCE UNITS LAB L501.0100 74-106 mg/dL High GLU 110 Result Comment: Fasting Glucose result from 100 to 125 mg/dL suggests IMPAIRED HOMEOSTASIS per A.D.A. criteria. Please note revised GLUCOSE reference range effective 2017. Performed By: #### L501.0100 #### [facility] [address] [place] [address]. [place], [address] ENDOCRINOLOGY VISIT Observed: 05/20/2018 Status: F Source: [place] REPORT 7:51 PM [facility] REPOSITORY [facility] [address] [place] [address] OFFICE VISIT Date of Service: 05/15/18 MR#: [id number] Acct: [id number] Name: BRIT COTTO Rep #: [id number] : 1990 Provider: Natacha Camara NP Age/Sex: 27/F Location: [facility] Status: Signed HPI History of present illness BRIT COTTO presents today for a follow up regarding concerns of her blood sugar. She had been referred to Dr. Macias who has undiagnosed her diabetes and has stopped her insulin. Brit is here today to discuss her increased blood glucose levels. She reports she has continued to follow a keto diet and was told she does not need to worry about her BG readings unless they remain over 200. Patient is concerned as she reports her BG readings are running at 180 most mornings. Patient howvever did not bring a meter to confirm her BG readings she reports to have been getting. . She does tell me a CGM was done by Dr. Macias and her BG readings were all within normal range and she also states she was found to have normal insulin levels. At time of visit: -Pt denies symptoms of hypertensive emergency (CP,SOB,KIDD, or blurred vision) and hypotension(dizziness or lightheadedness) -Pt denies symptoms of hypoglycemia ( sweaty, confusion, anxiety, tremor, hunger, palpitations) and hyperglycemia ( polydipsia, polyuria) -Pt denies potential medication adverse effect. Hypoglycemia Aware of hypoglycemia: When awake Able to self treat low BG: Yes Frequent low Blood sugar: No Has supply of glucagon: Yes SMBG reports high fasting BG around 180 Diet Mostly keto diet which she has been ask not to use. Exercise Reports routine daily exercise Const General: comfortable Nutritional Appearance: well nourished Orientation: oriented x3 HENMT Head: normal to inspection, atraumatic Ears: hearing grossly normal bilaterally Nose: external nose normal Face and sinus: normal facial exam Mouth: oral mucosae normal, moist mucous membranes Teeth and gingiva: dentition normal Eyes General: appearance normal, both eyes and all related structures Eyelids: eyelids normal Conjunctivae: conjunctivae normal Sclera: sclerae normal Neck Neck: normal visual inspection Neck mass: No Thyroid: other (No swelling Well healing scar) Resp Effort AND Inspection: normal respiratory effort, able to speak in complete sentences, symmetric chest movement Cardio Rate: regular rate Rhythm: regular rhythm Musc Musculoskeletal: No muscle weakness Skin General: no rashes or lesions noted Wounds: no wounds Neuro General: moves all extremities, oriented x3 Cognition: normal cognition Speech: speech normal Gait: normal gait Motor: muscle tone normal throughout Extrem General: normal to inspection, full ROM, normal capillary refill, no pedal edema Psych Appearance: grossly normal Mental Status: mental status grossly normal Mood: congruent mood Affect: normal affect Speech and Movement: speech and movement normal Attitude: cooperative Thought Process: normal Thought Content: normal Judgment: judgment good Type: undetermined Glucose control symptoms: Reports high fasting glucose Weight and fatigue symptoms: Denies snoring Cardiopulmonary symptoms: Denies chest pain at rest, dyspnea on exertion, lightheadedness or myalgias GI symptoms: Reports diarrhea; denies constipation, nausea/dyspepsia or vomiting Other symptoms: Denies blurry vision or change in vision Pertinent visit history: Denies recent visit to ER, recent hospital admission, recent DKA, recent 911 calls or recent glucagon injection Self monitoring: Yes Percentage of fasting blood glucose within goal: <25% of the time Dietary compliance: Diabetes: other Diabetes education in past year: Yes Glucose testing: demonstrates correct use of meter, understands testing schedule Sick day education - understands ketone testing: Yes Physical activity: regular Intake Vital Signs05/15/18 Height 5 ft 3 in 05/15/18 Weight: 127 lb 05/15/18 Body Mass Index (BMI) 22.4 05/15/18 Blood Pressure 116/79 05/15/18 Blood Pressure Location Lt popliteal 05/15/18 Blood Pressure Position Sitting Intake Visit Reasons: BG in 200s couple weeks 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: No Accompanied by: Self Allergies No Known Allergies Allergy (Verified 05/15/18 08:43) Medications blood sugar diagnostic strips See Dose Instructions .ROUTE .MEDSUPPLY #120 ea 01/09/18 [Rx Confirmed 05/15/18] Insulin Glargine,Hum.rec.anlog [Basaglar Kwikpen U-100] 3 unit SC QDAY 02/08/18 [History Confirmed 05/15/18] Norgestimate-Ethinyl Estradiol [Fisher-Linyah 28 Tablet] 1 ea PO DAILY 02/08/18 [History Confirmed 05/15/18] Levothyroxine Sodium [Levoxyl] 100 mcg PO DAILY #30 tab 02/15/18 [Rx Confirmed 05/15/18] pen needle, diabetic 32 gauge x See Dose Instructions .ROUTE .MEDSUPPLY #100 ea 03/12/18 [Rx Confirmed 05/15/18] liothyronine 5 mcg tablet 5 mcg PO DAILY 05/15/18 [History Confirmed 05/15/18] Nurse's Note: blood sugars : low : 90 high : 200 PFSH Medical History Diabetes type 2, controlled (Acute) Polycystic ovarian disease (Acute) Sleep apnea (Acute) Graves disease (Acute) Hyperthyroidism (Acute) Surgical History Hx of thyroidectomy (Acute) Family History Father Hypertension Social History Smoking Status: Former smoker second hand exposure: No alcohol intake: never substance use type: does not use what type of physical activity do you participate in: running, walking, bicycling, weight training frequency: 3-4 times per week seatbelt use: always ROS Const Constitutional: No anorexia, body ache, chills, fatigue, fever(s), frequent falls, decreased energy, malaise, night sweats, weakness, weight change, sleep problems, abnormal sleep pattern, change in appetite, other, headache(s), snoring or excessive sweating Eyes Eyes: No blurry vision, change in vision, double vision, discharge, dry eyes, bulging eyes, floaters, visual disturbances, eye pain, light sensitivity, spots in vision, tunnel vision or other ENT ENT: No abnormal hearing, ear pain, ear discharge, ear pressure, hearing loss, tinnitus, dizziness/vertigo, balance problems, nosebleed/epistaxis, nasal congestion, nasal obstruction, nose pain, sinus pressure, sinus pain, nasal discharge, post nasal drip, headache(s), facial pain, dental pain, dry mouth, bad breath, hoarseness, lip swelling, mouth lesions, mouth pain, sore throat, tongue swelling, throat swelling, other, difficulty swallowing or neck pain Resp Respiratory: No cough, change in phlegm color, chest congestion, excessive phlegm production, hemoptysis, pain on inspiration, shortness of breath, pain with cough, snoring, stridor, wheezing or other Cardio Cardiology: No chest pain at rest, chest pain with exertion, leg pain with exertion, excessive sweating, shortness of breath, dyspnea on exertion, generalized swelling, irregular heart rhythm, lightheadedness, orthopnea, radiating jaw, neck or arm pain, fast heart rate, slow heart rate, palpitations or other Gastro GI: Positive for diarrhea; no abdominal pain, belching, bloating, change in bowel habits, change in stool character, coffee ground emesis, constipation, cramping, heartburn, difficulty swallowing, feeling full early, excessive flatus, incontinent of stools, Vomiting blood/hematemesis, blood in stool, loose stools, Black,tarry stools, nausea/dyspepsia, pain with swallowing, vomiting or other Genitourinary-Female: No difficulty urinating, burning urination, painful urination, urinary incontinence, urinary frequency, urinary urgency, urinary hesitancy, urinary retention, blood in urine, Frequent nighttime urination/ nocturia, post void dribbling, suprapubic fullness, side pain, sexual problems, genital lesions, genital itching, hot flashes, abnormal periods, abnormal vaginal bleeding, absent period, painful periods, light periods, heavy periods, difficulty getting , painful intercourse, pelvic pain, vaginal dryness, vaginal odor, Vaginal Itching or other Musc Musculoskeletal: No abnormal walking, joint pain, back pain, deformity, joint swelling, limited range of motion, loss of height, muscle cramps, muscle weakness, decreased muscle mass, body aches, neck pain, numbness, radiating pain into limb, stiffness, tingling or other Skin Skin: Positive for acne; no hair loss, change in hair, nail changes, boil, change in skin color, dry skin, redness, excessive hair growth, yellowing of the skin, lesions, itching, rash, skin pain, skin ulcer, sores, skin swelling, wounds or other Breast Breast: No other Neuro Neurology: No frequent falls, weakness, visual disturbances, abnormal hearing, headache(s), abnormal walking, numbness or tingling Psych Psychiatric: No abnormal sleep pattern, No change in appetite Endo Endocrine: No fatigue, other or excessive sweating Aller/Imm Allergy/Immunologic: No lip swelling, tongue swelling, throat swelling, wheezing or itchy eyes Assessment AND Plan Problems 1. Hyperglycemia, unspecified R73.[address] Kaiser who has stated patient is not diabetic, but that her hyperthyroid state created elevation in her antibodies which created false positive GAD65 for diabetes. I have ask patient to sign release for her records so I can review. I have cautioned patient that switiching back and forth between providers is not to her best care. I do not have recording of her BG readings to substantiate her high BG readings. She reports she has called these findings to the endocrinologists office. Will order fasting glucose level for patient and await records. Answered patient questions.. Orders Orders: Medications New: Coding Level of Care Code Off vis,est,level 4 Diagnoses Hyperglycemia, unspecified R73.9 Time Spent (min) 45 05/20/181950 <Electronically signed by Natacha POPE> Date Natacha POPE Cosigner Signature: Date (if applicable) CC: GLUCOSE Collected: 05/17/2018 Status: F Source: [place] 9:36 AM [facility] REPOSITORY TYPE CODE TESTS RESULT OUT OF RANGE REFERENCE UNITS LAB L501.0100 74-106 mg/dL High GLU 137 Result Comment: Fasting Glucose result greater than or equal to 126 mg/dL suggests DIABETES MELLITUS per A.D.A. criteria. Please note revised GLUCOSE reference range effective 2017. Performed By: #### L501.0100 #### [facility] [address] [place], [place], [address] TSH Collected: 04/03/2018 Status: F Source: [facility] 10:03 [facility] REPOSITORY TYPE CODE TESTS RESULT OUT OF RANGE REFERENCE UNITS LAB TSH(LOINC) 0.36-3.74 mcIU/mL TSH 1.70 Performed By: #### TSH, FT4, FT3 #### [address] [address] FT4 Collected: 04/03/2018 Status: F Source: [facility] 10:03 AM [facility] REPOSITORY TYPE CODE TESTS RESULT OUT OF RANGE REFERENCE UNITS LAB FT4(LOINC) 0.76-1.46 ng/dL Free T4 0.98 Performed By: #### TSH, FT4, FT3 #### [address] [address] FT3 Collected: 04/03/2018 Status: F Source: [facility] 10:03 AM [facility] REPOSITORY TYPE CODE TESTS RESULT OUT OF RANGE REFERENCE UNITS LAB FT3(LOINC) 2.30-4.00 pg/mL Low Free T3 2.00 Performed By: #### TSH, FT4, FT3 #### [address] [address] BMP Collected: 03/22/2018 Status: F Source: [facility] 2:16 PM [facility] REPOSITORY Order Comment: Patient was instructed to have one set of labs done fasting ([phone]), to eat a meal with carbs, and to return for the 2nd set of labs 1 hr post prandial. [phone] is the second set of labs, 1 hour after she reportedly had toast and scrambled eggs. TYPE CODE TESTS RESULT OUT OF REFERENCE UNITS RANGE LAB GLU(LOINC) 70-105 mg/dL Glucose High Level 119 LAB NA(LOINC) 136-145 mmol/L Sodium Level 140 LAB K(LOINC) 3.5-5.1 mmol/L Potassium Level 4.1 LAB CL(LOINC) 98-107 mmol/L Chloride 102 LAB CO2(LOINC) 22-29 mmol/L CO2 29 LAB EBAL(LOINC mEq/L ) Electrolyte Balance 9.0 LAB BUN(LOINC) 7-18 mg/dL BUN 13 LAB CRE(LOINC) 0.55-1.02 mg/dL Creatinine Lvl (s) 0.68 LAB BC(LOINC) 7-27 ratio BUN/Creatinine 19 Ratio LAB CA(LOINC) 8.4-10.2 mg/dL Calcium Lvl 9.7 Performed By: #### BMP, GFR, INSLN, CPEP #### [address] [address] .GFR Collected: 03/22/2018 Status: F Source: [facility] 2:16 PM [facility] REPOSITORY TYPE CODE TESTS RESULT OUT OF REFERENCE UNITS RANGE LAB GFRAA(LOINC ml/min/1.73 ) sqm GFR 128 Ukrainian Result Comment: GFR Population mean for , Non- Americans Ages 20-29 = 116 mL/min/1.73 sq.m. Ages 30-39 = 107 mL/min/1.73 sq.m. Ages 40-49 = 99 mL/min/1.73 sq.m. Ages 50-59 = 93 mL/min/1.73 sq.m. Ages 60-69 = 85 mL/min/1.73 sq.m. Ages 70+ = 75 mL/min/1.73 sq.m. Chronic Kidney Disease: Less than 60 mL/min/1.73 square meters End Stage Renal Disease: Less than 15 mL/min/1.73 square meters LAB GFRNO(LOINC) ml/min/1.73sqm GFR Non- 105 Result Comment: GFR Population mean for , Non- Americans Ages 20-29 = 116 mL/min/1.73 sq.m. Ages 30-39 = 107 mL/min/1.73 sq.m. Ages 40-49 = 99 mL/min/1.73 sq.m. Ages 50-59 = 93 mL/min/1.73 sq.m. Ages 60-69 = 85 mL/min/1.73 sq.m. Ages 70+ = 75 mL/min/1.73 sq.m. Chronic Kidney Disease: Less than 60 mL/min/1.73 square meters End Stage Renal Disease: Less than 15 mL/min/1.73 square meters Performed By: #### HALIMA, GFR, INSLN, CPEP #### [place] [address] INSLN Collected: 03/22/2018 Status: F Source: [facility] 2:16 [facility] REPOSITORY Order Comment: Patient was instructed to have one set of labs done fasting ([phone]), to eat a meal with carbs, and to return for the 2nd set of labs 1 hr post prandial. [phone] is the second set of labs, 1 hour after she reportedly had toast and scrambled eggs. TYPE CODE TESTS RESULT OUT OF REFERENCE UNITS RANGE LAB INSLN(LOINC 2.60-37.60 mcIU/mL ) Insulin 12.40 Performed By: #### BMP, GFR, INSLN, CPEP #### [address] [address] CPEP Collected: 03/22/2018 Status: F Source: [facility] 2:16 PM [facility] REPOSITORY Order Comment: Patient was instructed to have one set of labs done fasting ([phone]), to eat a meal with carbs, and to return for the 2nd set of labs 1 hr post prandial. [phone] is the second set of labs, 1 hour after she reportedly had toast and scrambled eggs. TYPE CODE TESTS RESULT OUT OF RANGE REFERENCE UNITS LAB CPEP(LOINC) 1.0-7.6 ng/mL C-Peptide 2.5 Performed By: #### BMP, GFR, INSLN, CPEP #### [place] [address] CMP Collected: 03/22/2018 Status: F Source: [facility] 12:46 PM [facility] TYPE CODE TESTS RESULT OUT OF REFERENCE UNITS RANGE LAB GLU(LOINC) 70-105 mg/dL Glucose Level 103 LAB NA(LOINC) 136-145 mmol/L Sodium Level 139 LAB K(LOINC) 3.5-5.1 mmol/L Potassium Level 4.4 LAB CL(LOINC) 98-107 mmol/L Chloride 102 LAB CO2(LOINC) 22-29 mmol/L CO2 26 LAB EBAL(LOINC mEq/L ) Electrolyte Balance 11.0 LAB BUN(LOINC) 7-18 mg/dL BUN 14 LAB CRE(LOINC) 0.55-1.02 mg/dL Creatinine Lvl (s) 0.71 LAB BC(LOINC) 7-27 ratio BUN/Creatinine 20 Ratio LAB CA(LOINC) 8.4-10.2 mg/dL Calcium Lvl 9.5 LAB PROT(LOINC 6.4-8.2 G/dL ) Total Protein 7.2 LAB ALB(LOINC) 3.5-5.0 G/dL Albumin Level 3.7 LAB GLB(LOINC) G/dL Globulin 3.5 LAB AG(LOINC) 1.1-2.5 ratio A/G Ratio 1.1 LAB BILT(LOINC 0.2-1.0 mg/dL ) Bili Total 0.3 LAB AP(LOINC) 40-135 U/L Alk Phos 42 LAB AST(LOINC) 10-40 U/L AST/SGOT 13 LAB ALT(LOINC) 10-35 U/L ALT/SGPT 16 Performed By: #### CMP, GFR, INSLN, DHEAS, CPEP #### [address] [address] #### FTESTO #### [place] [address] [place], [place] [address] .GFR Collected: 03/22/2018 Status: F Source: [facility] 12:46 PM [facility] REPOSITORY TYPE CODE TESTS RESULT OUT OF REFERENCE UNITS RANGE LAB GFRAA(LOINC ml/min/1.73 ) sqm GFR 122 Ukrainian Result Comment: GFR Population mean for , Non- Americans Ages 20-29 = 116 mL/min/1.73 sq.m. Ages 30-39 = 107 mL/min/1.73 sq.m. Ages 40-49 = 99 mL/min/1.73 sq.m. Ages 50-59 = 93 mL/min/1.73 sq.m. Ages 60-69 = 85 mL/min/1.73 sq.m. Ages 70+ = 75 mL/min/1.73 sq.m. Chronic Kidney Disease: Less than 60 mL/min/1.73 square meters End Stage Renal Disease: Less than 15 mL/min/1.73 square meters LAB GFRNO(LOINC) ml/min/1.73sqm GFR Non- 100 Result Comment: GFR Population mean for , Non- Americans Ages 20-29 = 116 mL/min/1.73 sq.m. Ages 30-39 = 107 mL/min/1.73 sq.m. Ages 40-49 = 99 mL/min/1.73 sq.m. Ages 50-59 = 93 mL/min/1.73 sq.m. Ages 60-69 = 85 mL/min/1.73 sq.m. Ages 70+ = 75 mL/min/1.73 sq.m. Chronic Kidney Disease: Less than 60 mL/min/1.73 square meters End Stage Renal Disease: Less than 15 mL/min/1.73 square meters Performed By: #### CMP, GFR, INSLN, DHEAS, CPEP #### [address] [address] #### FTESTO #### [place] [address] [place], [place] [address] INSLN Collected: 03/22/2018 Status: F Source: [facility] 12:46 PM [facility] REPOSITORY TYPE CODE TESTS RESULT OUT OF REFERENCE UNITS RANGE LAB INSLN(LOINC 2.60-37.60 mcIU/mL ) Insulin 7.00 Performed By: #### CMP, GFR, INSLN, DHEAS, CPEP #### [address] [address] #### FTESTO #### [address] [place] [address] [place], [place] [address] FTESTO Collected: 03/22/2018 Status: F Source: [facility] 12:46 PM [facility] REPOSITORY TYPE CODE TESTS RESULT OUT OF REFERENCE UNITS RANGE LAB TESTO(LOIN <40 ng/dL C) Testosterone 19 Result Comment: Performed By: [facility] [employer] [facility] [place] [address] Date Night Sitter: Kylie Purvis M.D. CLIA#: [id number] Phone#: LAB FREE(LOINC) 0.8-2.3 % Free Testosterone % 1.6 Result Comment: Performed By: [facility] [employer] [address] [place] [address] Date Night Sitter: Kylie Purvis M.D. CLIA#: [id number] Phone#: LAB FTES(LOINC) 1.8-10.4 pg/mL Free Testosterone 3.0 Result Comment: This test was developed and its performance characteristics determined by [facility]'s [facility] Pathology and Laboratory Medicine [place] ([facility] It has not been cleared or approved by the FDA. -[facility] is regulated under CLIA as qualified to perform high-complexity testing. This test is used for clinical purposes. It should not be regarded as investigational or for research. Performed By: [facility] [employer] [address] [place], [place] [id number] Date Night Sitter: Kylie Purvis M.D. CLIA#: [id number] Phone#: Performed By: #### CMP, GFR, INSLN, DHEAS, CPEP #### [address] [address] #### FTESTO #### [place] [id number] [place], [place] [address] DHEAS Collected: 03/22/2018 Status: F Source: [facility] 12:46 PM [facility] REPOSITORY TYPE CODE TESTS RESULT OUT OF RANGE REFERENCE UNITS LAB DHEAS(LOINC 35-430 mcg/dL ) DHEA-SO4 157 Performed By: #### CMP, GFR, INSLN, DHEAS, CPEP #### [place] [address] #### FTESTO #### [place] [address] [place], [place] [address] CPEP Collected: 03/22/2018 Status: F Source: [facility] 12:46 PM [facility] REPOSITORY TYPE CODE TESTS RESULT OUT OF RANGE REFERENCE UNITS LAB CPEP(LOINC) 1.0-7.6 ng/mL C-Peptide 1.5 Performed By: #### CMP, GFR, INSLN, DHEAS, CPEP #### [place] [address] #### FTESTO #### [address] [address] OFFICE VISIT REPORT Observed: 03/19/2018 Status: F Source: [place] 1:11 PM [facility] REPOSITORY [address] [address] OFFICE VISIT Date of Service: 03/18/18 MR#: [id number] Acct: [id number] Patient: BRIT COTTO Rep #: [id number] : 1990 Provider: Natacha Camara NP Age/Sex: 27/F Location: [facility] Status: Signed Intake Vital Signs03/18/18 Height 5 ft 3 in 03/18/18 Weight: 127 lb 2 oz 03/18/18 Body Mass Index (BMI) 22.5 03/18/18 Blood Pressure 106/72 03/18/18 Blood Pressure Location Rt popliteal 03/18/18 Blood Pressure Position Sitting Intake Visit Reasons: post op f/u thyroidectomy Chief Complaint: POSTOP THYROIDECTOMY 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: No Accompanied by: Self Is patient in pain?: No Allergies No Known Allergies Allergy (Verified 03/18/18 13:30) Medications blood sugar diagnostic strips See Dose Instructions .ROUTE .MEDSUPPLY #120 ea 01/09/18 [Rx Confirmed 03/18/18] Insulin Glargine,Hum.rec.anlog [Mamiaglzonia Dooleypen U-100] 3 unit SC QDAY 02/08/18 [History Confirmed 03/18/18] Norgestimate-Ethinyl Estradiol [Fisher-Linyah 28 Tablet] 1 ea PO DAILY 02/08/18 [History Confirmed 03/18/18] Levothyroxine Sodium [Levoxyl] 100 mcg PO DAILY #30 tab 02/15/18 [Rx Confirmed 03/18/18] pen needle, diabetic 32 gauge x See Dose Instructions .ROUTE .MEDSUPPLY #100 ea 03/12/18 [Rx Confirmed 03/18/18] Is last menstrual period known: No Post menopausal: No Patient : No PFSH Medical History Diabetes type 2, controlled (Acute) Polycystic ovarian disease (Acute) Sleep apnea (Acute) Graves disease (Acute) Hyperthyroidism (Acute) Surgical History Hx of thyroidectomy (Acute) Family History Father Hypertension Social History Smoking Status: Former smoker second hand exposure: No alcohol intake: never substance use type: does not use what type of physical activity do you participate in: running, walking, bicycling, weight training frequency: 3-4 times per week seatbelt use: always HPI HPI Chief Complaint: POSTOP THYROIDECTOMY Details: BRIT COTTO, is a 27 F who presents to the office today for follow up of hypothyroidism. Underwent total thyroidectomy by Dr. Jaimes on 02/15/2018. She had been found to have multiple nodules and hyperthyroid which had a greater than 7 year history. Patient had not sought medical care over that time due to not having insurance. Patient started on levothyroxine 100mcg. Reports taking as directed and is not missing any doses. Labs completed for this review. Severity, modifying factors, context, and associated signs and symptoms are as follows: Thyroid pain: No Energy: Reduced Sleep: Not awakened refreshed Temp: No intolerance GI: Normal bowel Weight: gain Eyes: No change in vision Memory: unchanged Diaphoresis: Not significant Skin: Dry Hair :shedding Neuro: No numbness, tingling or tremors ROS Const Constitutional: No anorexia, body ache, chills, fatigue, fever(s), frequent falls, decreased energy, malaise, night sweats, weakness, weight change, sleep problems, abnormal sleep pattern, change in appetite, other, headache(s), snoring or excessive sweating Eyes Eyes: No blurry vision, change in vision, double vision, discharge, dry eyes, bulging eyes, floaters, visual disturbances, eye pain, light sensitivity, spots in vision, tunnel vision or other ENT ENT: No abnormal hearing, ear pain, ear discharge, ear pressure, hearing loss, tinnitus, dizziness/vertigo, balance problems, nosebleed/epistaxis, nasal congestion, nasal obstruction, nose pain, sinus pressure, sinus pain, nasal discharge, post nasal drip, headache(s), facial pain, dental pain, dry mouth, bad breath, hoarseness, lip swelling, mouth lesions, mouth pain, sore throat, tongue swelling, throat swelling, other, difficulty swallowing or neck pain Resp Respiratory: No cough, change in phlegm color, chest congestion, excessive phlegm production, hemoptysis, pain on inspiration, shortness of breath, pain with cough, snoring, stridor, wheezing or other Cardio Cardiology: No chest pain at rest, chest pain with exertion, leg pain with exertion, excessive sweating, shortness of breath, dyspnea on exertion, generalized swelling, irregular heart rhythm, lightheadedness, orthopnea, radiating jaw, neck or arm pain, fast heart rate, slow heart rate, palpitations or other Gastro GI: No abdominal pain, belching, bloating, change in bowel habits, change in stool character, coffee ground emesis, constipation, cramping, diarrhea, heartburn, difficulty swallowing, feeling full early, excessive flatus, incontinent of stools, Vomiting blood/hematemesis, blood in stool, loose stools, Black,tarry stools, nausea/dyspepsia, pain with swallowing, vomiting or other Genitourinary-Female: No difficulty urinating, burning urination, painful urination, urinary incontinence, urinary frequency, urinary urgency, urinary hesitancy, urinary retention, blood in urine, Frequent nighttime urination/ nocturia, post void dribbling, suprapubic fullness, side pain, sexual problems, genital lesions, genital itching, hot flashes, abnormal periods, abnormal vaginal bleeding, absent period, painful periods, light periods, heavy periods, difficulty getting , painful intercourse, pelvic pain, vaginal dryness, vaginal odor, Vaginal Itching or other Musc Musculoskeletal: No abnormal walking, joint pain, back pain, deformity, joint swelling, limited range of motion, loss of height, muscle cramps, muscle weakness, decreased muscle mass, body aches, neck pain, numbness, radiating pain into limb, stiffness, tingling or other Skin Skin: Positive for acne and hair loss; no change in hair, nail changes, boil, change in skin color, dry skin, redness, excessive hair growth, yellowing of the skin, lesions, itching, rash, skin pain, skin ulcer, sores, skin swelling, wounds or other Breast Breast: No other Neuro Neurology: No frequent falls, weakness, visual disturbances, abnormal hearing, headache(s), abnormal walking, numbness or tingling Psych Psychiatric: No abnormal sleep pattern, No change in appetite Endo Endocrine: No fatigue, other or excessive sweating Aller/Imm Allergy/Immunologic: No lip swelling, tongue swelling, throat swelling, wheezing or itchy eyes Exam Const General: comfortable Nutritional Appearance: well nourished Orientation: oriented x3 [facility] Head: normal to inspection, atraumatic Ears: hearing grossly normal bilaterally Nose: external nose normal Face and sinus: normal facial exam Mouth: oral mucosae normal, moist mucous membranes Teeth and gingiva: dentition normal Eyes General: appearance normal, both eyes and all related structures Eyelids: eyelids normal Conjunctivae: conjunctivae normal Sclera: sclerae normal Neck Neck: normal visual inspection Neck mass: No Thyroid: other (No swelling Well healing scar) Resp Effort AND Inspection: normal respiratory effort, able to speak in complete sentences, symmetric chest movement Cardio Rate: regular rate Rhythm: regular rhythm Musc Musculoskeletal: No muscle weakness Skin General: no rashes or lesions noted Wounds: no wounds Neuro General: moves all extremities, oriented x3 Cognition: normal cognition Speech: speech normal Gait: normal gait Motor: muscle tone normal throughout Extrem General: normal to inspection, full ROM, normal capillary refill, no pedal edema Psych Appearance: grossly normal Mental Status: mental status grossly normal Mood: congruent mood Affect: normal affect Speech and Movement: speech and movement normal Attitude: cooperative Thought Process: normal Thought Content: normal Judgment: judgment good Assessment AND Plan Problems 1. Hx of thyroidectomy Z98.890 2. Diabetes mellitus type 1, controlled, without complications E10.9 Plan Diabetes: Continues to do well. BG remain controlled. Thyroidectomy Healing well. TSH 1.32 T4 1.15 No adjustment required. Notified Dr. Jaimes office regarding pathology of specimen. Referral made to Dr. Reeves. Plan Detail Additional Comments 1. Please schedule follow up for diabetes.. 2. Lab work one week before appointment. 3. Discussed importance of regular exercise and recommend starting or continuing a regular exercise program for good health. 4. The patient was encouraged to maintain weight for good health 5. The importance of monitoring blood sugar regularly was reviewed. 6. The importance of monitoring the HBA1c level regularly was reviewed. 7. The importance of proper foot care and regularly checking feet to prevent sores and loss of limbs was reviewed. 8. The importance of keeping BP at or below 130/80 to prevent stroke, heart attacks, kidney failure, blindness was reviewed. Spent approximately 30 minutes with patient with over 50% of time spent in discussion and counseling regarding medication adjustment, symptoms and treatment of hypoglycemia, diet adherence, and checking BG before driving. Coding Level of Care Code Off vis,est,level 2 Diagnoses Hx of thyroidectomy Z98.890 Diabetes mellitus type 1, controlled, without complications E10.9 03/19/18 1311 <Electronically signed by Natacha POPE> Date Natacha POPE Cosigner Signature: Date (if applicable) CC: FREE T3 Collected: 03/18/2018 Status: F Source: [place] 10:51 AM [facility] REPOSITORY TYPE CODE TESTS RESULT OUT OF RANGE REFERENCE UNITS LAB L501.50579 2.18-3.98 pg/mL Low FREE T3 1.5 Performed By: #### L501.85024, L501.9520, L506.0400 #### [facility] [address] [place], [address] THYROID STIM HORMONE Collected: 03/18/2018 Status: F Source: ALAN (TSH) 10:51 AM [facility] REPOSITORY TYPE CODE TESTS RESULT OUT OF RANGE REFERENCE UNITS LAB L501.9520 0.358-3.74 uIU/mL Normal TSH 1.32 Performed By: #### L501.94546, L501.9520, L506.0400 #### [facility] [address] [place], [address] T4 FREE DIRECT Collected: 03/18/2018 Status: F Source: [place]AN 10:51 AM [facility] REPOSITORY TYPE CODE TESTS RESULT OUT OF RANGE REFERENCE UNITS LAB L506.0400 0.76-1.46 ng/dL Normal T4 FREE 1.15 DIRECT Performed By: #### L501.64372, L501.9520, L506.0400 #### [facility] [address] [place], [address] OPERATIVE REPORT Observed: 02/27/2018 Status: F Source: [place]AN 11:59 AM [facility] REPOSITORY [facility] Medical Records Department [address] [place] [address] Operative Report 02/15/18 0839 MR#: [id number] Acct: [id number] Name: BRIT COTTO Rep #: [id number] : 1990 27 From: Jared Jaimes MD PCP: Care Physician, No Primary Status: [facility] [place] [facility] [place] (1) Hyperthyroidism Status: Acute Report of Operation Date of Procedure: 02/15/18 Pre-Operative Diagnosis: Hyperthyroidism Post-Operative Diagnosis: Same Surgery/Procedure Performed:: Total thyroidectomy Type of Anesthesia:: General Anesthesiologist: Adilson Jimenez Description of Procedure: Patient was brought into the operating room placed in the supine position under excellent general trach intubation towel was placed underneath the shoulder blades and neck was extended sterilely prepped and draped in usual fashion. Local was injected cervical incision was made subplatysmal flaps were created with use of electrocautery. Gelpi retractor was placed inside the wound midline strap muscles were opened up with electrocautery. Started on the right side going to the superior pole vessels and took these down with harmonic dissector came down to the middle thyroidal vein and took this down with harmonic dissector finally the inferior thyroid vessels down with harmonic dissector. Rotated the gland from lateral medial standpoint identified both inferior and superior parathyroid glands and sparing them and identified the recurrent laryngeal nerve. Took the gland off of Vargas's ligaments with the pneumonic dissector and rotated off the trachea to the left side the left side was extremely small once again went to the superior pole vessels first took these down into the inferior pole vessels and took these down. Middle thyroidal vein was taken with a harmonic dissector and finally rotated the gland from lateral to medial standpoint once again identified both inferior and superior parathyroid glands as well as the recurrent laryngeal nerve. I took the gland off of Vargas's ligament and I sent it into specimens right lobe of the thyroid gland and left lobe of thyroid gland which also contain part of the isthmus. Placed Surgicel into the left side I inspected the right side it was completely clean and I did not leave any Surgicel in there. Midline strap muscles were closed with 2-0 Vicryl subplatysmal flaps were brought together with 3-0 Vicryl in a running 4-0 Monocryl and Dermabond was applied sterile dressings were applied and the patient tolerated the procedure well. - Admit VTE Documentation VTE Present on Admission: No VTE Pharm Prophylaxis ordered?: No Reason prophylaxis not ordered:: Treatment Not Indicated 02/27/18 1159 <Electronically signed by Jared Jaimes MD> Date Jared Jaimes MD CC: No Primary Care Physician; Jared Jaimes MD; Frederick Harley DO Signed SURGERY VISIT REPORT Observed: 02/25/2018 Status: F Source: [place] 10:45 AM [facility] [address] [place] [address] OFFICE VISIT Date of Service: 02/25/18 MR#: [id number] Acct: [id number] Name: BRIT COTTO Rep #: [id number] : 1990 Provider: Abril Bazzi PA-C Age/Sex: 27/F Location: [facility] [place] Status: Signed Intake Intake Visit Reasons: Thyroidectomy DP 02/15 Chief Complaint: POSTOP THYROIDECTOMY 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: No Is patient in pain?: No Allergies No Known Allergies Allergy (Verified 02/25/18 09:33) Medications methimazole 5 mg tablet 5 mg PO QDAY #30 tab 12/26/17 [Rx Confirmed 02/25/18] blood sugar diagnostic strips See Dose Instructions .ROUTE .MEDSUPPLY #120 ea 01/09/18 [Rx Confirmed 02/25/18] Insulin Glargine,Hum.rec.anlog [Basaglar Kwikpen U-100] 3 unit SC QDAY 02/08/18 [History Confirmed 02/25/18] Norgestimate-Ethinyl Estradiol [Fisher-Linyah 28 Tablet] 1 ea PO DAILY 02/08/18 [History Confirmed 02/25/18] Levothyroxine Sodium [Levoxyl] 100 mcg PO DAILY #30 tab 02/15/18 [Rx Confirmed 02/25/18] PFSH Medical History Diabetes type 2, controlled (Acute) Polycystic ovarian disease (Acute) Sleep apnea (Acute) Graves disease (Acute) Hyperthyroidism (Acute) Surgical History Hx of thyroidectomy (Acute) Family History Father Hypertension Social History Smoking Status: Former smoker second hand exposure: No alcohol intake: never substance use type: does not use what type of physical activity do you participate in: running, walking, bicycling, weight training frequency: 3-4 times per week seatbelt use: always HPI HPI HPI: BRIT COTTO, is a 27 F I am following for hyperthyroidism. Dr. Jaimes performed a total thyroidectomy on 02/15/18. Patient tolerated the procedure well. Pathology demonstrated colloid nodule of the right lobe and Hurthle cell changes of the left thyroid (few small nodules noted in the left lobe). Patient denies nausea, vomiting, fever. She denies hoarseness, extreme fatigue/weakness, perioral numbness. Exam Const General: cooperative, healthy appearing, comfortable, no acute distress HENMT Other: Anterior neck incision- c/d/i. No erythema or infection noted. No drainage. Surgical glue intact. Minimal amount of swelling. Assessment AND Plan Problems 1. Hx of thyroidectomy E89.0 02/15/2018 2. 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 Our office will call with results. 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, [address] BEDSIDE GLUCOSE Collected: 02/16/2018 Status: F Source: [place]AN 12:06 PM [facility] REPOSITORY TYPE CODE TESTS RESULT OUT OF RANGE REFERENCE UNITS LAB L501.080 70-110 mg/dL Normal BEDSIDE GLU 90 Result Comment: MANAGEMENT OF PATIENT CARE PER NURSING PROTOCOL Performed By: #### L501.080 #### [facility] Point of Care [address] [address] DISCHARGE INSTRUCTION Observed: 02/16/2018 Status: F Source: [place] 10:33 AM [facility] REPOSITORY [facility] Medical Records Department [address] [address] Instructions for Home/Discharge Instructions 02/16/18 1032 MR#: [id number] Acct: [id number] Name: BRIT COTTO Rep #: [id number] : 1990 27 From: Jared Jaimes MD PCP: Care Physician, No [place] [facility] [place] Diet: Light diet - advance as tolerated - If you have questions about your diet instructions, please talk to your doctor. Discharge Activity: May Not Drive - for 1 week or while taking narcotic pain medicine. May shower in (days): 1 Lifting Restrictions: 10 pounds Call your doctor if your incision/area has: Continuous Slow Oozing, Sudden Increased Bleeding, Increased Pain/ Swelling, Increased Redness, Foul Smelling Discharge Call your doctor if you observe: Fever of 101 or Higher Suture Line Care: Avoid Pulling/Pushing, Avoid Pinching/Bending Cleanse incision/area with: Soap AND Water - Okay to shower Additional Dressing/Incision Instructions:: Change or remove dressing in 4 days. Leave steri-strips in place for 1 week. Additional Instructions: By a bottle of extra strength Tums. Take 2 tablets 3 times a day for 1 week. Allergies/Adverse Reactions: Allergies No Known Allergies Allergy (Verified 02/15/18 05:47) Medications to take at Discharge methimazole 5 mg tablet 5 mg PO QDAY #30 tab 12/26/17 blood sugar diagnostic strips See Dose Instructions .ROUTE .MEDSUPPLY #120 ea 01/09/18 Insulin Glargine,Hum.rec.anlog [Basaglar Kwikpen U-100] 3 unit SC QDAY 02/08/18 Norgestimate-Ethinyl Estradiol [Fisher-Linyah 28 Tablet] 1 each PO DAILY 02/08/18 Levothyroxine Sodium [Levoxyl] 100 mcg PO DAILY #30 tab 02/15/18 Oxycodone HCl/Acetaminophen [Percocet 5/325] 1 - 2 tab PO Q4H PRN PRN 4 Days #30 tab 02/15/18 The following prescriptions were given: Oxycodone HCl/Acetaminophen [Percocet 5/325] 1 - 2 tab PO Q4H PRN PRN 4 Days #30 tab PRN Reason: Pain Levothyroxine Sodium [Levoxyl] 100 mcg PO DAILY #30 tab Primary Care Physician: Care Physician,No Primary [Primary Care Provider] - Test Results: Test results from this visit will be discussed in further detail at your follow-up appointment, if applicable. Please Follow Up With: Jared Jaimes MD - [phone] When: Call to make an appointment to be seen in about 10 days. 02/16/18 1033 <Electronically signed by Jared Jaimes MD> Date Jared Jaimes MD CC: No Primary Care Physician; Frederick Harley DO CALCIUM,TOTAL Collected: 02/16/2018 Status: F Source: [place] 6:25 AM [facility] REPOSITORY TYPE CODE TESTS RESULT OUT OF RANGE REFERENCE UNITS LAB L501.2200 8.5-10.1 mg/dL Low CA 8.2 Performed By: #### L501.2200 #### [facility] [address] [place], [place], [address] BEDSIDE GLUCOSE Collected: 02/16/2018 Status: F Source: [place] 5:23 AM [facility] REPOSITORY TYPE CODE TESTS RESULT OUT OF RANGE REFERENCE UNITS LAB L501.080 70-110 mg/dL Normal BEDSIDE GLU 92 Result Comment: MANAGEMENT OF PATIENT CARE PER NURSING PROTOCOL Performed By: #### L501.080 #### [facility] Point of Care [address] [place], [place] [address] BEDSIDE GLUCOSE Collected: 02/15/2018 Status: F Source: [place] 8:26 PM [facility] REPOSITORY TYPE CODE TESTS RESULT OUT OF RANGE REFERENCE UNITS LAB L501.080 70-110 mg/dL Normal BEDSIDE GLU 88 Result Comment: MANAGEMENT OF PATIENT CARE PER NURSING PROTOCOL Performed By: #### L501.080 #### [facility] Point of Care [address] [place] [address] CALCIUM,TOTAL Collected: 02/15/2018 Status: F Source: [place] 5:46 PM [facility] REPOSITORY TYPE CODE TESTS RESULT OUT OF RANGE REFERENCE UNITS LAB L501.2200 8.5-10.1 mg/dL Low CA 7.9 Performed By: #### L501.2200 #### [facility] [address] [place], [address] BEDSIDE GLUCOSE Collected: 02/15/2018 Status: F Source: [place] 5:09 PM [facility] REPOSITORY TYPE CODE TESTS RESULT OUT OF RANGE REFERENCE UNITS LAB L501.080 70-110 mg/dL Normal BEDSIDE GLU 104 Result Comment: MANAGEMENT OF PATIENT CARE PER NURSING PROTOCOL Performed By: #### L501.080 #### [facility] Point of Care [address] [place] [address] BEDSIDE GLUCOSE Collected: 02/15/2018 Status: F Source: [place] 12:56 PM [facility] REPOSITORY TYPE CODE TESTS RESULT OUT OF REFERENCE UNITS RANGE LAB L501.080 70-110 mg/dL High BEDSIDE GLU 117 Result Comment: MANAGEMENT OF PATIENT CARE PER NURSING PROTOCOL Performed By: #### L501.080 #### [facility] Point of Care [address] [place] [address] BEDSIDE GLUCOSE Collected: 02/15/2018 Status: F Source: [place] 11:07 AM [facility] REPOSITORY TYPE CODE TESTS RESULT OUT OF REFERENCE UNITS RANGE LAB L501.080 70-110 mg/dL High BEDSIDE GLU 123 Result Comment: MANAGEMENT OF PATIENT CARE PER NURSING PROTOCOL Performed By: #### L501.080 #### [facility] Point of Care [address] [place] [address] CALCIUM,TOTAL Collected: 02/15/2018 Status: F Source: [place] 10:00 AM [facility] REPOSITORY Order Comment: Comments: please collect at 10am, 6pm,6am TYPE CODE TESTS RESULT OUT OF RANGE REFERENCE UNITS LAB L501.2200 8.5-10.1 mg/dL Low CA 8.4 Performed By: #### L501.2200 #### [facility] [address] [place], [address] BEDSIDE GLUCOSE Collected: 02/15/2018 Status: F Source: [place] 9:15 AM [facility] REPOSITORY TYPE CODE TESTS RESULT OUT OF RANGE REFERENCE UNITS LAB L501.080 70-110 mg/dL Normal BEDSIDE GLU 104 Result Comment: MANAGEMENT OF PATIENT CARE PER NURSING PROTOCOL Performed By: #### L501.080 #### [facility] Point of Care [address] [place] [address] THYROID (TOTAL/LOBE) Observed: 02/15/2018 Status: F Source: [place] 7:30 AM [facility] REPOSITORY Patient: BRIT COTTO : 1990 () Acct Num: [id number] Phys: Cortney Yanez Unit Num: [id number] [place] [facility] [place]imen: [id number] Received: 02/15/18 1555 Spec Type: THYROID TISSUES TISSUES: A. Thyroid gland, NOS - RIGHT LOBE B. Thyroid gland, NOS - LEFT LOBE COMMENT A. The nodules also show H rthle cell changes and dominant nodule shows focal calcifications. B. The specimen shows only a few small nodules. Please make reference to previous specimen ([id number]) fine needle aspiration, right thyroid nodule with diagnosis of consistent with colloid nodule. GROSS DESCRIPTION A - Received in fixative is one container labeled with the patient's name and designated right lobe of thyroid. The specimen consists of a thyroid lobectomy specimen measuring 4.5 x 3 x 2.5 cm and weighing 14.1 gm. The specimen partly appears disrupted. External parathyroid gland is identified. A possible portion is present measuring 1.5 x 1.5 x 0.2 cm. The specimen is inked as follows: anterior surface blue, posterior surface black and isthmus resection margin yellow. Serial sections reveal a soto, solid nodule occupying the middle to lower portion of the thyroid lobe measuring 3 x 2.5 x 2 cm. There is a nodule occupying almost 80% of the thyroid lobe. No distinct capsule is noted surrounding the nodule. The entire specimen is submitted in ten cassettes as follows: 1 isthmus, 2-10 thyroid lobe (2 containing most superior portion and 10 containing most inferior portion). B - Received in fixative is one container labeled with the patient's name and designated left lobe of thyroid. The specimen consists of a thyroid lobectomy specimen including possible portion of isthmus measuring 2 x 1.5 x 1 cm. The isthmic portion measures 1 x 0.5 x 0.4 cm and weighing 1.7 gm. The specimen is inked as follows: anterior surface blue, posterior surface black and isthmus resection margin yellow. The specimen is serially sectioned and does not reveal any mass lesion. The entire specimen is submitted in three cassettes as follows: 1 isthmus, 2 AND 3 - thyroid lobe (2 containing superior half of the lobe and 3 containing inferior half of the lobe). / JONATHAN:roland 02/18/18 TC:5 CPT: 00155 x2 HEADER OPERATION: Total thyroidectomy PRE-OP DIAGNOSIS: Hyperthyroidism TISSUE SUBMITTED: A - Right lobe of thyroid, B Left lobe of thyroid MICROSCOPIC DESCRIPTION Slides are reviewed. MICROSCOPIC DIAGNOSIS A. Right lobe of thyroid, lobectomy: Multinodular goiter with a dominant nodule (3 cm in greatest dimension). Chronic inflammation. See comment. B. Left lobe of thyroid, lobectomy: Multinodular goiter with H rthle cell changes. See comment. SJ:roland 02/19/18 Signed Adam Macias 02/19/18 <signature on file> Performed By: #### PTHYROID #### [facility] [address] [place], [address] HISTORY AND PHYSICAL Observed: 02/15/2018 Status: F Source: [place] EXAM 6:55 AM [facility] Medical Records Department [address] [facility] [place] [address] History and Physical 02/15/18 0652 MR#: [id number] Acct: [id number] Name: BRIT COTTO Rep #: [id number] : 1990 27 From: Jared Jaimes MD PCP: Care Physician, No Primary Status: [facility] [place]: [place] [address]- Problem List (1) Hyperthyroidism Status: Acute History of Present Illness Date of Admission: 02/15/18 The patient is a 27 year old F who presents to the office today for for a surgical evaluation for her hyperthyroidism. Patient has been treated by numerous wireline field operator as well as ear nose and throat physicians when she was diagnosed with hypothyroidism a few years back. Recently she was seen by ELIU camara who went over her nuclear scan and other antibody studies. She was started on Tapazole and restarted on methimazole. She is currently euthyroid on Tapazole 5 mg daily and presents to my office today for surgical evaluation given the fact that she has had such a hard time getting into normal thyroidism. Past Medical History Past Medical History (Chronic Problems): Chronic Problems (Last Reviewed 02/05/18 @ 12:51 by Pura Sykes) Diabetes mellitus type 1, controlled, without complications (Chronic) initiated basaglar insulin due to low c peptide and john 65 antibodies. Instructed on use of insulin pen. Doing an excellent job of control and feels good. Confident in self.. Medical History: Medical History (Last Reviewed 02/15/18 @ 06:53 by Jared Jaimes MD) Diabetes type 2, controlled (Acute) E11.9 Dx : 07/15 Last exacerbation : DKA : never Hypoglycemic episode : never ER visit : never Polycystic ovarian disease (Acute) E28.2 Sleep apnea (Acute) G47.30 Graves disease (Acute) E05.00 Hyperthyroidism (Acute) E05.90 Allergies No Known Allergies Allergy (Verified 02/15/18 05:47) Home Medications: Ambulatory Orders Medication Instructions Recorded methimazole 5 mg tablet 5 mg PO QDAY #30 tab 12/26/17 blood sugar diagnostic strips See Dose Instructions .ROUTE 01/09/18 Smoking Status: Former smoker - *Family History Maternal Family History: Family History (Last Reviewed 02/05/18 @ 12:51 by Pura Sykes) Father Hypertension History Items: No pertinent history Review of Systems Cardiovascular: Denies: Chest Pain, Chest Pressure, Chest Tightness, Palpitations Respiratory: Denies: Cough, Hemoptysis, Shortness of breath at rest, Shortness of breath upon exertion, Wheezing Gastrointestinal: Denies: Abdominal Pain, Constipation, Diarrhea, Hematemesis, Nausea, Melena, Vomiting Genitourinary: Denies: Dysuria, Frequency, Hematuria, Urgency VTE Information - Inpt Only VTE Present on Admission: No VTE Mechan Device Prophylaxis: SCD's VTE Pharm Prophylaxis ordered?: No Reason prophylaxis not ordered:: Treatment Not Indicated - Physical Exam General: Alert, Oriented x3 Neck: Supple, No JVD Lungs: Clear to auscultation Cardiovascular: Regular rate, Regular Rhythm, No murmurs Abdomen: Bowel Sounds Present, Soft, Non Tender, Non-Distended Vital Signs Temp Pulse Resp BP Pulse Ox 98.1 F 69 14 112/79 100 02/15/18 05:53 02/15/18 05:53 02/15/18 05:53 02/15/18 05:53 02/15/18 05:53 Oxygen Delivery Method Room Air Weight: 125 lb 10.616 oz Body Mass Index (BMI) 22.2 Laboratory Tests Past 24 Hrs Urine Test Negative Assessment/Plan All Active Problems (Last Reviewed 02/05/18 @ 12:51 by Pura Sykes) Diabetes type 2, controlled (Acute) Polycystic ovarian disease (Acute) Sleep apnea (Acute) Graves disease (Acute) Hyperthyroidism (Acute) Hyperthyroidism (Acute) Diabetes mellitus type 2, controlled, without complications (Acute) I recommended that the patient undergo a total thyroidectomy. I counseled the patient is to the risk of the procedure including but not limited to infection bleeding recurrent laryngeal nerve injury or parathyroid gland injury. All questions asked were answered and she was given printed material with regards to her surgery. 02/15/18 0655 <Electronically signed by Jared Jaimes MD> Date Jared Jaimes MD Cosign Signature: Date (if applicable) CC: No Primary Care Physician; Jared Jaimes MD Signed BEDSIDE GLUCOSE Collected: 02/15/2018 Status: F Source: ALAN 6:08 AM [facility] REPOSITORY TYPE CODE TESTS RESULT OUT OF RANGE REFERENCE UNITS LAB L501.080 70-110 mg/dL Normal BEDSIDE GLU 91 Result Comment: MANAGEMENT OF PATIENT CARE PER NURSING PROTOCOL Performed By: #### L501.080 #### [facility] Point of Care [address] [place], [place] [address] ,URINE Collected: 02/15/2018 Status: F Source: ALAN 5:40 AM [facility] REPOSITORY TYPE CODE TESTS RESULT OUT OF REFERENCE UNITS RANGE LAB L400.8000 Negative Normal HCGUQUAL Negative Result Comment: Very dilute urine specimens, as indicated by a low specific gravity, may not contain distribution sales representative levels of hCG. If is still suspected, a first morning urine specimen should be collected 48 hours later and tested. Performed By: #### L400.7600 #### [facility] [address] [place], [place], [id number] C-PEPTIDE Collected: 02/06/2018 Status: F Source: ALAN 10:00 AM [facility] REPOSITORY Order Comment: WASNT IN [facility] COMMENT TYPE CODE TESTS RESULT OUT OF RANGE REFERENCE UNITS LAB L3100.7750 1.1-4.4 ng/mL Normal C PEPTIDE 1.3 56820 Result Comment: C-Peptide reference interval is for fasting patients. Performed at: - [facility] [address] [id number] Date Night Sitter: Kevin Butler PhD, Phone: [phone] Performed By: #### L3100.7750 #### [facility] (refer to report for specific site) refer to report for address and phone number COMPREHENSIVE METABOLIC Collected: 02/06/2018 Status: F Source: ALAN PROFIL 9:57 AM [facility] REPOSITORY TYPE CODE TESTS RESULT OUT OF RANGE REFERENCE UNITS LAB L501.0100 74-106 mg/dL Normal GLU 95 Result Comment: Please note revised GLUCOSE reference range effective 2017. LAB L501.1000 7-18 mg/dL Normal BUN 9 LAB L501.1100 0.55-1.02 mg/dL Normal CREAT,SERUM 0.60 Result Comment: The validity of the calculated GFR AND GFRAA in patients over 70 years has not been determined. Clinical correlation is essential. LAB L501.1110 >60 mL/min Normal EST GFR 128 Result Comment: Non- GFR Calc LAB L501.1115 >60 mL/min Normal EST GFR - AA 155 Result Comment: GFR Calc LAB L501.1300 10-20 RATIO Normal BUN/CRE 14.9 LAB L501.1500 6.4-8.2 g/dL T Normal PROT 6.5 LAB L501.1800 3.2-5.0 g/dL Low ALB 3.1 LAB L501.1950 2.2-4.2 g/dL Normal GLOB 3.4 LAB L501.2000 0.9-2.4 RATIO Normal A/G 0.9 LAB L501.2200 8.5-10.1 mg/dL CA Normal 8.5 LAB L501.4100 15-37 U/L Low AST 14 LAB L501.4305 45-117 U/L Low ALK P 40 LAB L501.4405 13-56 U/L Normal ALT 16 LAB L501.4600 0.20-1.00 mg/dL T Normal BILI 0.20 LAB L501.5300 136-145 mmol/L NA Normal 141 LAB L501.5600 3.5-5.1 mmol/L K Normal 3.9 LAB L501.5900 98-107 mmol/L CL Normal 105 LAB L501.6100 21.0-32.0 mmol/L Normal CO2 27.0 LAB L501.6200 5-15 Normal GAP 9 Performed By: #### L500.4050, L500.4100, L501.79568, L501.9520, L506.0400 #### [facility] [address] [facility]. [place], [place], [address] LIPID PROFILE Collected: 02/06/2018 Status: F Source: [place] 9:57 AM [facility] REPOSITORY TYPE CODE TESTS RESULT OUT OF RANGE REFERENCE UNITS LAB L501.4900 200 mg/dL High CHOL 223 Result Comment: <200 mg/dL Desirable 200-240 mg/dL Borderline >240 mg/dL High Risk LAB L501.5000 mg/dL Normal TRIG 83 Result Comment: The drugs N-Acetylcysteine and Metamizole may falsely depress this assay. Serum Triglycerides Reference Interval Normal <150 mg/dL Borderline high 150 - 199 mg/dL High 200 - 499 mg/dL Very High > or = 500 mg/dL LAB L501.6400 mg/dL Normal HDL 58 Result Comment: The drugs N-Acetylcysteine and Metamizole may falsely depress this assay. Reference Range HDL <40 mg/dL Low HDL Cholesterol HDL >or= 60 mg/dL High HDL Cholesterol LAB L501.6500 0-130 mg/dL High LDL 148 LAB L501.6600 5-40 mg/dL Normal VLDL 17 Performed By: #### L500.4050, L500.4100, L501.76281, L501.9520, L506.0400 #### [facility] [address], [address] FREE T3 Collected: 02/06/2018 Status: F Source: [place] 9:57 AM [facility] REPOSITORY TYPE CODE TESTS RESULT OUT OF RANGE REFERENCE UNITS LAB L501.37478 2.18-3.98 pg/mL Normal FREE T3 2.2 Performed By: #### L500.4050, L500.4100, L501.29948, L501.9520, L506.0400 #### [facility] [address] [place], [place], [address] THYROID STIM HORMONE Collected: 02/06/2018 Status: F Source: [place] (TSH) 9:57 AM [facility] REPOSITORY TYPE CODE TESTS RESULT OUT OF RANGE REFERENCE UNITS LAB L501.9520 0.358-3.74 uIU/mL Normal TSH 0.36 Performed By: #### L500.4050, L500.4100, L501.83125, L501.9520, L506.0400 #### [facility] [address], [address] T4 FREE DIRECT Collected: 02/06/2018 Status: F Source: [place] 9:57 AM [facility] REPOSITORY TYPE CODE TESTS RESULT OUT OF RANGE REFERENCE UNITS LAB L506.0400 0.76-1.46 ng/dL Normal T4 FREE 0.80 DIRECT Performed By: #### L500.4050, L500.4100, L501.86943, L501.9520, L506.0400 #### [facility] [address], [address] MICROALB:CREAT Collected: 02/06/2018 Status: F Source: ALAN RATIO,RANDOM UR 9:57 AM [facility] REPOSITORY TYPE CODE TESTS RESULT OUT OF RANGE REFERENCE UNITS LAB L501.1200 NO RANGE EST. mg/dL Normal UR CREAT 157.00 LAB L502.0500 NO RANGE EST. mg/L Normal 6.4 MICROALBUMIN ,UR LAB L502.0600 <30 mg/g CRE mg/g CRE Normal 4.1 MALB:CREAT Performed By: #### L502.0250 #### [facility] [address], [address] ENDOCRINOLOGY VISIT Observed: 02/05/2018 Status: F Source: [place] REPORT 7:21 PM [facility] REPOSITORY [facility] [address] [place] [address] OFFICE VISIT Date of Service: 02/05/18 MR#: [id number] Acct: [id number] Name: BRIT COTTO Rep #: [id number] : 1990 Provider: Natacha Camara NP Age/Sex: 27/F Location: [facility] Status: Signed HPI History of present illness BRIT COTTO, is a 27 F who presents to the office today for diabetes type 1. Recently started on basaglar 3 units. Taken off metformin. Also on tapazole 5mg for hyperthyroidism. currently being scheduled for thyroidectomy with Dr. Jaimes. Severity, modifying factors, context, and associated signs and symptoms are as follows: Thyroid pain: No Energy: Fine Sleep: awakened refreshed Temp: No intolerance GI: Normal bowel Weight: Flucuates Eyes: No change in vision Memory: unchanged Diaphoresis: Not significant Skin: Dry Hair : Unchanged Neuro: No numbness, tingling or tremors Is also diabetic. Has been watching her diet and exercising. She finds BG 80-113 with a couple of BG in the 140 range. Does have a c-peptide of 1.6 and does have john 65 which is positive. We have discussed starting basaglar at this time. SMBG Before meals and after BG 64-110 Diet Trying to limit carbs. Eating healthy Exam Const General: comfortable, no acute distress Nutritional Appearance: thin Orientation: oriented x3 [facility] Head: normal to inspection, normocephalic Ears: hearing grossly normal bilaterally Mouth: oral mucosae normal, moist mucous membranes Teeth and gingiva: dentition normal Eyes General: appearance normal, both eyes and all related structures Conjunctivae: conjunctivae normal Sclera: sclerae normal Pupils: PERRL Neck Neck mass: Yes Thyroid: multiple nodules Resp Effort AND Inspection: normal respiratory effort, able to speak in complete sentences, symmetric chest movement Auscultation: Bilateral: Clear to Auscultation Cardio Rate: regular rate Rhythm: regular rhythm Heart Sounds: S1 normal, S2 normal GI Inspection: normal to inspection Auscultation: normal bowel sounds Palpation: soft Musc Musculoskeletal: No muscle weakness Skin General: no rashes or lesions noted Wounds: no wounds Neuro General: gait normal Cranial Nerves: CN's II-XI intact bilaterally Cognition: normal cognition Speech: speech normal Gait: normal gait Extrem General: normal capillary refill, normal to inspection Psych Appearance: well kempt Mood: congruent mood Affect: normal affect Speech and Movement: speech and movement normal Attitude: cooperative Thought Process: normal Thought Content: normal Judgment: judgment good Weight and fatigue symptoms: Denies snoring Cardiopulmonary symptoms: Denies chest pain at rest, dyspnea on exertion, lightheadedness or myalgias GI symptoms: Denies constipation, diarrhea, nausea/dyspepsia or vomiting Other symptoms: Denies blurry vision or change in vision Weight and fatigue symptoms: Denies snoring Cardiopulmonary symptoms: Denies chest pain at rest, dyspnea on exertion, lightheadedness or myalgias GI symptoms: Denies constipation, diarrhea, nausea/dyspepsia or vomiting Other symptoms: Denies blurry vision or change in vision Intake Vital Signs02/05/18 Height 5 ft 3 in 02/05/18 Weight: 132 lb 02/05/18 Body Mass Index (BMI) 23.3 02/05/18 Blood Pressure 109/74 02/05/18 Blood Pressure Location Lt popliteal 02/05/18 Blood Pressure Position Sitting Intake Visit Reasons: diabetes/thyroid 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: No Accompanied by: Self Is patient in pain?: No Allergies No Known Allergies Allergy (Verified 02/05/18 12:50) Medications insulin glargine (U-100) 100 unit/mL (3 mL) subcutaneous pen 10 unit SC QDAY #15 ml 12/10/17 [Rx Confirmed 02/05/18] norgestimate 0.25 mg-ethinyl estradiol 35 mcg tablet 1 tab PO QDAY 12/10/17 [History Confirmed 02/05/18] methimazole 5 mg tablet 5 mg PO QDAY #30 tab 12/26/17 [Rx Confirmed 02/05/18] blood sugar diagnostic strips See Dose Instructions .ROUTE .MEDSUPPLY #120 ea 01/09/18 [Rx Confirmed 02/05/18] metformin 500 mg tablet 500 mg PO BID #60 tab 01/21/18 [Rx Confirmed 02/05/18] Is last menstrual period known: No Post menopausal: No Patient : No Nurse's Note: blood sugars : low : 64 high : 123 PFSH Medical History Diabetes type 2, controlled (Acute) Polycystic ovarian disease (Acute) Sleep apnea (Acute) Graves disease (Acute) Hyperthyroidism (Acute) Family History Father Hypertension Social History Smoking Status: Current some day smoker second hand exposure: No alcohol intake: never substance use type: does not use what type of physical activity do you participate in: running, walking, bicycling, weight training frequency: 3-4 times per week seatbelt use: always ROS Const Constitutional: No anorexia, body ache, chills, fatigue, fever(s), frequent falls, decreased energy, malaise, night sweats, weakness, weight change, sleep problems, abnormal sleep pattern, change in appetite, other, headache(s), snoring or excessive sweating Eyes Eyes: No blurry vision, change in vision, double vision, discharge, dry eyes, bulging eyes, floaters, visual disturbances, eye pain, light sensitivity, spots in vision, tunnel vision or other ENT ENT: No abnormal hearing, ear pain, ear discharge, ear pressure, hearing loss, tinnitus, dizziness/vertigo, balance problems, nosebleed/epistaxis, nasal congestion, nasal obstruction, nose pain, sinus pressure, sinus pain, nasal discharge, post nasal drip, headache(s), facial pain, dental pain, dry mouth, bad breath, hoarseness, lip swelling, mouth lesions, mouth pain, sore throat, tongue swelling, throat swelling, other, difficulty swallowing or neck pain Resp Respiratory: No cough, change in phlegm color, chest congestion, excessive phlegm production, hemoptysis, pain on inspiration, shortness of breath, pain with cough, snoring, stridor, wheezing or other Cardio Cardiology: No chest pain at rest, chest pain with exertion, leg pain with exertion, excessive sweating, shortness of breath, dyspnea on exertion, generalized swelling, irregular heart rhythm, lightheadedness, orthopnea, radiating jaw, neck or arm pain, fast heart rate, slow heart rate, palpitations or other Gastro GI: No abdominal pain, belching, bloating, change in bowel habits, change in stool character, coffee ground emesis, constipation, cramping, diarrhea, heartburn, difficulty swallowing, feeling full early, excessive flatus, incontinent of stools, Vomiting blood/hematemesis, blood in stool, loose stools, Black,tarry stools, nausea/dyspepsia, pain with swallowing, vomiting or other Genitourinary-Female: No difficulty urinating, burning urination, painful urination, urinary incontinence, urinary frequency, urinary urgency, urinary hesitancy, urinary retention, blood in urine, Frequent nighttime urination/ nocturia, post void dribbling, suprapubic fullness, side pain, sexual problems, genital lesions, genital itching, hot flashes, abnormal periods, abnormal vaginal bleeding, absent period, painful periods, light periods, heavy periods, difficulty getting , painful intercourse, pelvic pain, vaginal dryness, vaginal odor, Vaginal Itching or other Musc Musculoskeletal: No abnormal walking, joint pain, back pain, deformity, joint swelling, limited range of motion, loss of height, muscle cramps, muscle weakness, decreased muscle mass, body aches, neck pain, numbness, radiating pain into limb, stiffness, tingling or other Skin Skin: No acne, hair loss, change in hair, nail changes, boil, change in skin color, dry skin, redness, excessive hair growth, yellowing of the skin, lesions, itching, rash, skin pain, skin ulcer, sores, skin swelling, wounds or other Breast Breast: No other Neuro Neurology: No frequent falls, weakness, visual disturbances, abnormal hearing, headache(s), abnormal walking, numbness or tingling Psych Psychiatric: No abnormal sleep pattern, No change in appetite Endo Endocrine: No fatigue, other or excessive sweating Aller/Imm Allergy/Immunologic: No lip swelling, tongue swelling, throat swelling, wheezing or itchy eyes Assessment AND Plan Problems 1. Hyperthyroidism E05.90 2. Diabetes mellitus type 1, controlled, without complications E10.9 Plan Continue current regimen Labs as ordered. Orders Orders: Plan Detail Additional Comments 1. Please schedule follow up in 3 months. 2. Lab work one week before appointment. 3. Discussed importance of regular exercise and recommend starting or continuing a regular exercise program for good health. 4. The patient was encouraged to lose weight for good health 5. The importance of monitoring blood sugar regularly was reviewed. 6. The importance of monitoring the HBA1c level regularly was reviewed. 7. The importance of prper foot care and regularly checking feet to prevent sores and loss of limbs was reviewed. 8. The importance of keeping BP at or below 130/80 to prevent stroke, heart attacks, kidney failure, blindness was reviewed. Spent approximately 30 minutes with patient with over 50% of time spent in discussion and counseling regarding medication adjustment, symptoms and treatment of hypoglycemia, diet adherence, and checking BG before driving. Coding Level of Care Code Off vis,est,level 4 Diagnoses Hyperthyroidism E05.90 Diabetes mellitus type 1, controlled, without complications E10.9 Time Spent (min) 30 02/05/181920 <Electronically signed by Natacha POPE> Date Natacha POPE Cosigner Signature: Date (if applicable) CC: SURGERY VISIT REPORT Observed: 02/04/2018 Status: F Source: ALAN 12:20 PM [facility] REPOSITORY [facility] [address] [place] [address] OFFICE VISIT Date of Service: 12/21/17 MR#: [id number] Acct: [id number] Name: BRIT COTTO Rep #: [id number] : 1990 Provider: Jared Jaimes MD Age/Sex: 27/F Location: [facility] Status: Signed Intake Vital Signs12/21/17 Height 5 ft 3 in 12/21/17 Weight: 132 lb Intake Visit Reasons: REFERRAL HYPOTHYROIDISM 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: No Is patient in pain?: No Allergies No Known Allergies Allergy (Verified 12/21/17 14:28) Medications insulin glargine (U-100) 100 unit/mL (3 mL) subcutaneous pen 10 unit SC QDAY #15 ml 12/10/17 [Rx Confirmed 12/21/17] norgestimate 0.25 mg-ethinyl estradiol 35 mcg tablet 1 tab PO QDAY 12/10/17 [History Confirmed 12/21/17] methimazole 5 mg tablet 5 mg PO QDAY #30 tab 12/26/17 [Rx] blood sugar diagnostic strips See Dose Instructions .ROUTE .MEDSUPPLY #120 ea 01/09/18 [Rx] metformin 500 mg tablet 500 mg PO BID #60 tab 01/21/18 [Rx] PFSH Medical History Diabetes type 2, controlled (Acute) Polycystic ovarian disease (Acute) Sleep apnea (Acute) Graves disease (Acute) Hyperthyroidism (Acute) Family History Father Hypertension Social History Smoking Status: Current some day smoker second hand exposure: No alcohol intake: never substance use type: does not use what type of physical activity do you participate in: running, walking, bicycling, weight training frequency: 3-4 times per week seatbelt use: always HPI HPI HPI: BRIT COTTO, is a 27 F who presents to the office today for for a surgical evaluation for her hyperthyroidism. Patient has been treated by numerous wireline field operator as well as ear nose and throat physicians when she was diagnosed with hypothyroidism a few years back. Recently she was seen by ELIU camara who went over her nuclear scan and other antibody studies. She was started on Tapazole and restarted on methimazole. She is currently euthyroid on Tapazole 5 mg daily and presents to my office today for surgical evaluation given the fact that she has had such a hard time getting into normal thyroidism. ROS General General: No weight change, appetite, fatigue, colon cancer, breast cancer or weakness HEENT HEENT: No difficulty swallowing, eye injury, eye surgery, swollen glands or hoarseness Endo Endocrine: Yes thyroid disease and diabetes mellitus; no thyroid cancer, Hair loss, heat intolerance or cold intolerance Skin Skin: Yes rash; no changing moles Musc Musculoskeletal: No back problems, arthritis, rheumatoid arthritis, gout or joint pain Cardio Cardiovascular: Yes murmur (MVP); no pacemaker, heart disease, atrial fibrillation, high blood pressure, heart attack, heart stent, palpitations, shortness of breat with exertion or chest pain Psych Psychiatric: No depression, anxiety or hearing voices Resp Respiratory: No shortness of breath, Yes sleep apnea, No cough, No COPD, No asthma, No emphysema, No wheezing Gastro Gastrointestinal: No abdominal pain, No nausea or vomiting, No diarrhea, No constipation, No blood in stool, No acid reflux, No hemorrhoids, No ulcers, No gallbladder problem, No black,tarry stools Nikita Hematologic: No blood thinners, No blood disorders, No bleeding, No anemia, No blood clots Neuro Neurologic: No system reviewed and no additional complaints, except as docu, No as per HPI, No abnormal walking, No abnormal hearing, No abnormal movements, No abnormal speech, No behavioral changes, No burning sensations, No confusion, No seizure-like activity, No unsteadiness, No dizziness, No localized weakness, No frequent falls, No headache(s), No lack of coordination, No loss of vision, No memory loss, No numbness, No other visual disturbances, No radiating pain, No restless legs, No sensory deficit, No fainting, No tingling, No tremor(s), No weakness, No other Exam Const General: well developed, no acute distress, well hydrated Orientation: oriented to person, oriented to place, oriented to time [facility] Head: normocephalic, atraumatic Ears: external ears normal Mouth: moist mucous membranes Other: Thyroid Exam: No hard nodules are palpated Eyes Sclera: sclerae normal Pupils: normal by confrontation Neck Neck: no lymphadenopathy noted Neck mass: No Thyroid: symmetrical, thyroid normal Chest Chest palpation AND inspection: normal inspection of the chest Resp Effort AND Inspection: normal respiratory effort Auscultation: clear to auscultation bilaterally Percussion: percussion normal Cardio Rate: regular rate Rhythm: regular rhythm Heart Sounds: murmur (MVP) GI Palpation: soft, no masses, no hepatosplenomegaly, nontender Rectal Exam: other Other: Rectal exam deferred. Extrem General: no clubbing, cyanosis or edema, normal to inspection Assessment AND Plan Problems 1. Hyperthyroidism E05.90 Plan I recommended that the patient undergo a total thyroidectomy. She understands that I am going to be gone for approximately 1 month and will not be able to see her until sometime in January to get herself scheduled for this surgery. I have counseled the patient as to the risk of the procedure including but not limited to infection bleeding injury to recurrent laryngeal nerves or parathyroid glands. All questions asked were answered and she was given printed material with regards to her surgery. I will see her back sometime in January to get her scheduled for her surgery. Coding Level of Care Code Off vis,new,level 3 Diagnoses Hyperthyroidism E05.90 02/04/18 1220 <Electronically signed by Jared Jaimes MD> Date Jared Jaimes MD Cosigner Signature: Date (if applicable) CC: Natacha Camara STEAMING MACHINE OPERATOR; Shelby Macias MD HEMOGLOBIN A1C Collected: 01/15/2018 Status: F Source: [place] 3:50 PM [facility] REPOSITORY TYPE CODE TESTS RESULT OUT OF RANGE REFERENCE UNITS LAB L501.9985 4.2-6.3 % Normal HGB A1C 5.3 Performed By: #### L501.9985, L501.74265, L501.9520, L506.0400 #### [facility] [address] [place], [address] FREE T3 Collected: 01/15/2018 Status: F Source: [place] 3:50 PM [facility] REPOSITORY TYPE CODE TESTS RESULT OUT OF RANGE REFERENCE UNITS LAB L501.21244 2.18-3.98 pg/mL Normal FREE T3 2.6 Performed By: #### L501.9985, L501.93537, L501.9520, L506.0400 #### [facility] [address] [place], [address] THYROID STIM HORMONE Collected: 01/15/2018 Status: F Source: [place] (TSH) 3:50 PM [facility] REPOSITORY TYPE CODE TESTS RESULT OUT OF RANGE REFERENCE UNITS LAB L501.9520 0.358-3.74 uIU/mL Low TSH < 0.01 Performed By: #### L501.9985, L501.57623, L501.9520, L506.0400 #### [facility] [address] [place], [address] T4 FREE DIRECT Collected: 01/15/2018 Status: F Source: [place] 3:50 PM [facility] REPOSITORY TYPE CODE TESTS RESULT OUT OF RANGE REFERENCE UNITS LAB L506.0400 0.76-1.46 ng/dL Normal T4 FREE 1.00 DIRECT Performed By: #### L501.9985, L501.40901, L501.9520, L506.0400 #### [facility] [address] [place], [address] ENDOCRINOLOGY VISIT Observed: 12/10/2017 Status: F Source: [place] 3:55 PM [facility] REPOSITORY [facility] [address] [place] [address] OFFICE VISIT Date of Service: 12/10/17 MR#: [id number] Acct: [id number] Name: BRIT COTTO Rep #: [id number] : 1990 Provider: Natacha Camara NP Age/Sex: 27/F Location: [facility] Status: Signed HPI History of present illness Details: BRIT COTTO, is a 27 F who presents to the office today for hyperthyroidism. Seeing Dr. Gardner from [place] who is ENT. Also seen by Dr. Kaiser last week for hyperthyroidism. She reports she was diagnosed hyperthyroid a few years back but never had insurance. She now has insurance and is trying to follow up on this. Had recent I-123 uptake and scan. Also TRAB results note no antibodies. She was started on tapazole in this office but went to ER on first day she took the medication as she had chest pain and SOB. This was the reason for hr appt with Dr. Kaiser who restarted the methimazole. She did not return to Dr. Kaiser and has been in contact with this offie since her one visit there. She is now euthyroid on tapazole 5mg. Severity, modifying factors, context, and associated signs and symptoms are as follows: Thyroid pain: No Energy: Fine Sleep: awakened refreshed Temp: No intolerance GI: Normal bowel Weight: Flucuates Eyes: No change in vision Memory: unchanged Diaphoresis: Not significant Skin: Dry Hair : Unchanged Neuro: No numbness, tingling or tremors Is also diabetic. Has been watching her diet and exercising. She finds BG 80-113 with a couple of BG in the 140 range. Does have a c-peptide of 1.6 and does have john 65 which is positive. We have discussed starting basaglar at this time. SMBG Before meals and after Diet Trying to limit carbs. Eating healthy Exam Const General: comfortable, no acute distress Nutritional Appearance: thin Orientation: oriented x3 HENMT Head: normal to inspection, normocephalic Ears: hearing grossly normal bilaterally Mouth: oral mucosae normal, moist mucous membranes Teeth and gingiva: dentition normal Eyes General: appearance normal, both eyes and all related structures Conjunctivae: conjunctivae normal Sclera: sclerae normal Pupils: PERRL Neck Neck mass: Yes Thyroid: multiple nodules Resp Effort AND Inspection: normal respiratory effort, able to speak in complete sentences, symmetric chest movement Auscultation: Bilateral: Clear to Auscultation Cardio Rate: regular rate Rhythm: regular rhythm Heart Sounds: S1 normal, S2 normal GI Inspection: normal to inspection Auscultation: normal bowel sounds Palpation: soft Musc Musculoskeletal: No muscle weakness Skin General: no rashes or lesions noted Wounds: no wounds Neuro General: gait normal Cranial Nerves: CN's II-XI intact bilaterally Cognition: normal cognition Speech: speech normal Gait: normal gait Extrem General: normal capillary refill, normal to inspection Psych Appearance: well kempt Mood: congruent mood Affect: normal affect Speech and Movement: speech and movement normal Attitude: cooperative Thought Process: normal Thought Content: normal Judgment: judgment good Weight and fatigue symptoms: Denies snoring Cardiopulmonary symptoms: Denies chest pain at rest, dyspnea on exertion, lightheadedness or myalgias GI symptoms: Denies constipation, diarrhea, nausea/dyspepsia or vomiting Other symptoms: Denies blurry vision or change in vision Intake Vital Signs12/10/17 Height 5 ft 3 in 12/10/17 Weight: 134 lb 12/10/17 Body Mass Index (BMI) 23.7 12/10/17 Blood Pressure 117/80 12/10/17 Blood Pressure Location Lt popliteal 12/10/17 Blood Pressure Position Sitting Intake Visit Reasons: Thyroid dysfunction 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: No Accompanied by: Self Is patient in pain?: No Allergies No Known Allergies Allergy (Verified 12/10/17 10:34) Medications metformin 500 mg tablet 500 mg PO BID tab 10/22/17 [History Confirmed 12/10/17] insulin glargine (U-100) 100 unit/mL (3 mL) subcutaneous pen 10 unit SC QDAY #15 ml 12/10/17 [Rx Confirmed 12/10/17] methimazole 5 mg tablet 5 mg PO QDAY tab 12/10/17 [History] norgestimate 0.25 mg-ethinyl estradiol 35 mcg tablet 1 tab PO QDAY 12/10/17 [History Confirmed 12/10/17] Is last menstrual period known: No Post menopausal: No Patient : No Nurse's Note: blood sugars : low : 70 high : 140 PFSH Medical History Diabetes type 2, controlled (Acute) Graves disease (Acute) Hyperthyroidism (Acute) Polycystic ovarian disease (Acute) Sleep apnea (Acute) Family History Unknown Hypertension Social History Smoking Status: Current some day smoker alcohol intake: never substance use type: does not use ROS Const Constitutional: No anorexia, body ache, chills, fatigue, fever(s), frequent falls, decreased energy, malaise, night sweats, weakness, weight change, sleep problems, abnormal sleep pattern, change in appetite, other, headache(s), snoring or excessive sweating Eyes Eyes: No blurry vision, change in vision, double vision, discharge, dry eyes, bulging eyes, floaters, visual disturbances, eye pain, light sensitivity, spots in vision, tunnel vision or other ENT ENT: No abnormal hearing, ear pain, ear discharge, ear pressure, hearing loss, tinnitus, dizziness/vertigo, balance problems, nosebleed/epistaxis, nasal congestion, nasal obstruction, nose pain, sinus pressure, sinus pain, nasal discharge, post nasal drip, headache(s), facial pain, dental pain, dry mouth, bad breath, hoarseness, lip swelling, mouth lesions, mouth pain, sore throat, tongue swelling, throat swelling, other, difficulty swallowing or neck pain Resp Respiratory: No cough, change in phlegm color, chest congestion, excessive phlegm production, hemoptysis, pain on inspiration, shortness of breath, pain with cough, snoring, stridor, wheezing or other Cardio Cardiology: No chest pain at rest, chest pain with exertion, leg pain with exertion, excessive sweating, shortness of breath, dyspnea on exertion, generalized swelling, irregular heart rhythm, lightheadedness, orthopnea, radiating jaw, neck or arm pain, fast heart rate, slow heart rate, palpitations or other Gastro GI: No abdominal pain, belching, bloating, change in bowel habits, change in stool character, coffee ground emesis, constipation, cramping, diarrhea, heartburn, difficulty swallowing, feeling full early, excessive flatus, incontinent of stools, Vomiting blood/hematemesis, blood in stool, loose stools, Black,tarry stools, nausea/dyspepsia, pain with swallowing, vomiting or other Genitourinary-Female: No difficulty urinating, burning urination, painful urination, urinary incontinence, urinary frequency, urinary urgency, urinary hesitancy, urinary retention, blood in urine, Frequent nighttime urination/ nocturia, post void dribbling, suprapubic fullness, side pain, sexual problems, genital lesions, genital itching, hot flashes, abnormal periods, abnormal vaginal bleeding, absent period, painful periods, light periods, heavy periods, difficulty getting , painful intercourse, pelvic pain, vaginal dryness, vaginal odor, Vaginal Itching or other Musc Musculoskeletal: No abnormal walking, joint pain, back pain, deformity, joint swelling, limited range of motion, loss of height, muscle cramps, muscle weakness, decreased muscle mass, body aches, neck pain, numbness, radiating pain into limb, stiffness, tingling or other Skin Skin: No acne, hair loss, change in hair, nail changes, boil, change in skin color, dry skin, redness, excessive hair growth, yellowing of the skin, lesions, itching, rash, skin pain, skin ulcer, sores, skin swelling, wounds or other Breast Breast: No other Neuro Neurology: No frequent falls, weakness, visual disturbances, abnormal hearing, headache(s), abnormal walking, numbness or tingling Psych Psychiatric: No abnormal sleep pattern, No change in appetite Endo Endocrine: No fatigue, other or excessive sweating Aller/Imm Allergy/Immunologic: No lip swelling, tongue swelling, throat swelling, wheezing or itchy eyes Assessment AND Plan 1. Thyroid dysfunction E07.9 2. Diabetes mellitus type 1, controlled, without complications E10.9 3. Hyperthyroidism E05.90 Plan Referral to surgeon. Orders Referrals: Plan Detail Other Medications New: insulin glargine (U-100) (Mamiaglzonia DooleyPen U-100 [id number] units (0.1 mL) Sub-Q QDAY E11.9 ) Additional Comments 1. Please schedule follow up in 2 months. 2. Lab work one week before appointment. 3. Discussed importance of regular exercise and recommend starting or continuing a regular exercise program for good health. 4. The patient was encouraged to lose weight for good health 5. The importance of monitoring blood sugar regularly was reviewed. 6. The importance of monitoring the HBA1c level regularly was reviewed. 7. The importance of prper foot care and regularly checking feet to prevent sores and loss of limbs was reviewed. 8. The importance of keeping BP at or below 130/80 to prevent stroke, heart attacks, kidney failure, blindness was reviewed. Spent approximately 30 minutes with patient with over 50% of time spent in discussion and counseling regarding medication adjustment, symptoms and treatment of hypoglycemia, diet adherence, and checking BG before driving. Coding Level of Care Code Off vis,est,level 4 Diagnoses Thyroid dysfunction E07.9 Diabetes mellitus type 1, controlled, without complications E10.9 Hyperthyroidism E05.90 Time Spent (min) 30 12/10/17 0005 <Electronically signed by Natacha POPE> Date Natacha Slade Signature: Date (if applicable) CC: FREE T3 Collected: 12/06/2017 Status: F Source: [place] 3:47 PM [facility] REPOSITORY TYPE CODE TESTS RESULT OUT OF RANGE REFERENCE UNITS LAB L501.88696 2.18-3.98 pg/mL Normal FREE T3 3.8 Performed By: #### L501.42884, L501.9520, L506.0400 #### [facility] [address] [place], [place], [id number] THYROID STIM HORMONE Collected: 12/06/2017 Status: F Source: [place] (TSH) 3:47 PM [facility] REPOSITORY TYPE CODE TESTS RESULT OUT OF RANGE REFERENCE UNITS LAB L501.9520 0.358-3.74 uIU/mL Low TSH < 0.01 Performed By: #### L501.92878, L501.9520, L506.0400 #### [facility] [address] [place], [place], [address] T4 FREE DIRECT Collected: 12/06/2017 Status: F Source: [place] 3:47 PM [facility] REPOSITORY TYPE CODE TESTS RESULT OUT OF RANGE REFERENCE UNITS LAB L506.0400 0.76-1.46 ng/dL Normal T4 FREE 1.42 DIRECT Performed By: #### L501.64822, L501.9520, L506.0400 #### [facility] [address] [place], [address] FT4 Collected: 11/06/2017 Status: F Source: [facility] 8:18 AM [facility] REPOSITORY TYPE CODE TESTS RESULT OUT OF RANGE REFERENCE UNITS LAB FT4(LOINC) 0.6-1.7 ng/mL Low Free T4 0.5 Result Comment: Below normal(expected)range Performed By: #### FT4, FT3 #### [facility] [address], [place] [address] FT3 Collected: 11/06/2017 Status: F Source: [facility] 8:18 AM [facility] REPOS[facility] TYPE CODE TESTS RESULT OUT OF RANGE REFERENCE UNITS LAB FT3(LOINC) 2.3-4.0 pg/mL Low Free T3 1.6 Result Comment: Below normal(expected)range Performed By: #### FT4, FT3 #### [facility] [address], [place] [address] PROGRESS Observed: 10/22/2017 Status: COMPLETED Source: [place] 1:49 PM [facility] REPOSITORY HNO ID: [id number] Author: Galina Fraire Cma Service: (none) Author Type: (none) Type: Progress Notes Filed: 10/22/2017 1:50 PM Note Text: I spoke with Brit and she states she is now seeing a different physician. Dr. Ahumada removed as PCP. PROGRESS Observed: 10/22/2017 Status: COMPLETED Source: [place] 1:45 PM [facility] REPOSITORY HNO ID: [id number] Author: Galina Fraire Cma Service: (none) Author Type: (none) Type: Progress Notes Filed: 10/22/2017 1:50 PM Note Text: [facility] CARE GAP REGISTRY DOCUMENTATION (OUTSIDE TEAMLET) Provider Action/FYI: Please file hgba1c PSR Action/FYI: Patient identified by name and date of . Last BP/Labs: Blood Pressure: Last 3 Encounter BP Readings: Date: BP: 07/20/2017 122/76 07/07/2017 110/80 09/29/2011 86/60 Lipids: Cholesterol, Total (mg/dL) Date Value 07/07/2017 126 HDL Cholesterol (mg/dL) Date Value 07/07/2017 39 LDL Cholesterol (mg/dL) Date Value 07/07/2017 71 Triglyceride (mg/dL) Date Value 07/07/2017 80 HGB A1C: Lab Results Component Value Date HBA1C 10.4 07/07/2017 TSH: No results found for: TSH) ? Patient has the following care gap registry disease diagnosis:DM ? Patient has the following open care gaps:DM - Last HGBA1C is NOT under 9% ? Last office visit: 07/20/2017 ? Future office visit:Follow-up dm next available with Provider pcp or client support administrator with labs prior (hgba1c pending) Health Maintenance Due: DILATED RETINAL EXAM due on 1992 TETANUS due on 10/07/2003 HPV VACCINE(1 of 3 - Female 3 Dose Series) due on 10/07/2003 DIABETIC FOOT EXAM due on 2008 ONE PNEUMOVAX PRIOR TO AGE 65 due on 2008 INFLUENZA(1) due on 03/30/2017 Galina [facility] OFFICE VISIT REPORT Observed: 10/22/2017 Status: F Source: [place] 10:18 AM [facility] [place] [address] OFFICE VISIT Date of Service: 10/22/17 MR#: [id number] Acct: [id number] Patient: BRIT COTTO Rep #: [id number] : 1990 Provider: Natacha Camara NP Age/Sex: 27/F Location[place] [facility] Status: Signed Intake Vital Signs10/22/17 Height 5 ft 3 in 10/22/17 Weight: 134 lb 6 oz 10/22/17 Body Mass Index (BMI) 23.8 10/22/17 Blood Pressure 116/84 10/22/17 Blood Pressure Location Lt popliteal 10/22/17 Blood Pressure Position Sitting Intake Visit Reasons: REVIEW RESULTS 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: No Accompanied by: Self Is patient in pain?: No Allergies No Known Allergies Allergy (Verified 10/22/17 08:15) Medications methimazole 5 mg tablet 5 mg PO BID #60 tab 10/11/17 [Rx] metformin 500 mg tablet 500 mg PO BID tab 10/22/17 [History Confirmed 10/22/17] Is last menstrual period known: No Post menopausal: No Patient : No PFSH Medical History Diabetes type 2, controlled (Acute) Graves disease (Acute) Hyperthyroidism (Acute) Polycystic ovarian disease (Acute) Sleep apnea (Acute) Family History Unknown Hypertension Social History Smoking Status: Current some day smoker alcohol intake: never substance use type: does not use HPI HPI Details: BRIT COTTO, is a 27 F who presents to the office today for hyperthyroidism. Seeing Dr. Gardner from [place] who is ENT. Also seen by Dr. Kaiser last week for hyperthyroidism. She reports she was diagnosed hyperthyroid a few years back but never had insurance. She now has insurance and is trying to follow up on this. Had recent I-123 uptake and scan. Also TRAB results note no antibodies. She was started on tapazole in this office but went to ER on first day she took the medication as she had chest pain and SOB. This was the reason for hr appt with Dr. Kaiser who restarted the methimazole. Pt reports doing okay now on the tapazole but feels as though her right eye is dry. Severity, modifying factors, context, and associated signs and symptoms are as follows: Thyroid pain: No Energy: Fine Sleep: awakened refreshed Temp: No intolerance GI: Normal bowel Weight: Flucuates Eyes: No change in vision Memory: unchanged Diaphoresis: Not significant Skin: Dry Hair : Unchanged Neuro: No numbness, tingling or tremors Is also diabetic. Has been watching her diet and exercising. She finds BG 80-113 with a couple of BG in the 140 range. SMBG Before meals and after Diet Trying to limit carbs. Eating healthy ROS Const Constitutional: No anorexia, body ache, chills, fatigue, fever(s), frequent falls, decreased energy, malaise, night sweats, weakness, weight change, sleep problems, abnormal sleep pattern, change in appetite, other, headache(s), snoring or excessive sweating Eyes Eyes: Positive for dry eyes and eye pain; no blurry vision, change in vision, double vision, discharge, bulging eyes, floaters, visual disturbances, light sensitivity, spots in vision, tunnel vision or other ENT ENT: No abnormal hearing, ear pain, ear discharge, ear pressure, hearing loss, tinnitus, dizziness/vertigo, balance problems, nosebleed/epistaxis, nasal congestion, nasal obstruction, nose pain, sinus pressure, sinus pain, nasal discharge, post nasal drip, headache(s), facial pain, dental pain, dry mouth, bad breath, hoarseness, lip swelling, mouth lesions, mouth pain, sore throat, tongue swelling, throat swelling, other, difficulty swallowing or neck pain Resp Respiratory: No cough, change in phlegm color, chest congestion, excessive phlegm production, hemoptysis, pain on inspiration, shortness of breath, pain with cough, snoring, stridor, wheezing or other Cardio Cardiology: No chest pain at rest, chest pain with exertion, leg pain with exertion, excessive sweating, shortness of breath, dyspnea on exertion, generalized swelling, irregular heart rhythm, lightheadedness, orthopnea, radiating jaw, neck or arm pain, fast heart rate, slow heart rate, palpitations or other Gastro GI: No abdominal pain, belching, bloating, change in bowel habits, change in stool character, coffee ground emesis, constipation, cramping, diarrhea, heartburn, difficulty swallowing, feeling full early, excessive flatus, incontinent of stools, Vomiting blood/hematemesis, blood in stool, loose stools, Black,tarry stools, nausea/dyspepsia, pain with swallowing, vomiting or other Genitourinary-Female: No difficulty urinating, burning urination, painful urination, urinary incontinence, urinary frequency, urinary urgency, urinary hesitancy, urinary retention, blood in urine, Frequent nighttime urination/ nocturia, post void dribbling, suprapubic fullness, side pain, sexual problems, genital lesions, genital itching, hot flashes, abnormal periods, abnormal vaginal bleeding, absent period, painful periods, light periods, heavy periods, difficulty getting , painful intercourse, pelvic pain, vaginal dryness, vaginal odor, Vaginal Itching or other Musc Musculoskeletal: No abnormal walking, joint pain, back pain, deformity, joint swelling, limited range of motion, loss of height, muscle cramps, muscle weakness, decreased muscle mass, body aches, neck pain, numbness, radiating pain into limb, stiffness, tingling or other Neuro Neurology: No frequent falls, weakness, visual disturbances, abnormal hearing, headache(s), abnormal walking, numbness or tingling Psych Psychiatric: No abnormal sleep pattern, No change in appetite Endo Endocrine: No fatigue, other or excessive sweating Aller/Imm Allergy/Immunologic: No lip swelling, tongue swelling, throat swelling or wheezing Exam Const General: comfortable, no acute distress Nutritional Appearance: thin Orientation: oriented x3 [facility] Head: normal to inspection, normocephalic Ears: hearing grossly normal bilaterally Mouth: oral mucosae normal, moist mucous membranes Teeth and gingiva: dentition normal Eyes General: appearance normal, both eyes and all related structures Conjunctivae: conjunctivae normal Sclera: sclerae normal Pupils: PERRL Neck Neck mass: Yes Thyroid: multiple nodules Resp Effort AND Inspection: normal respiratory effort, able to speak in complete sentences, symmetric chest movement Auscultation: Bilateral: Clear to Auscultation Cardio Rate: regular rate Rhythm: regular rhythm Heart Sounds: S1 normal, S2 normal GI Inspection: normal to inspection Auscultation: normal bowel sounds Palpation: soft Musc Musculoskeletal: No muscle weakness Skin General: no rashes or lesions noted Wounds: no wounds Neuro General: gait normal Cranial Nerves: CN's II-XI intact bilaterally Cognition: normal cognition Speech: speech normal Gait: normal gait Extrem General: normal capillary refill, normal to inspection Psych Appearance: well kempt Mood: congruent mood Affect: normal affect Speech and Movement: speech and movement normal Attitude: cooperative Thought Process: normal Thought Content: normal Judgment: judgment good Assessment AND Plan Problems 1. Controlled type 2 diabetes mellitus without complication, without long-term current use of insulin E11.9 2. Hyperthyroidism E05.90 Plan Hyperthyroidism Will continue to follow with Dr. Kaiser tolerating methimazole well and has labs scheduled in 3 weeks . Diabetes; BG readings remain 80-100 range. Did note patient has antibodies. She is considering to follow up with Dr. Kaiser for this as well since she is already seeing her for thyroid. Discussed need to consider insulin as she appears to be type 1. Discussed n/v requires ER visit stat. She is afraid of needles and does not want to use. We discussed omnipod insulin pump. Plan Detail Additional Comments 1. Please schedule follow up 2. Lab work one week before appointment. 3. Discussed importance of regular exercise and recommend starting or continuing a regular exercise program for good health. 4. The patient was encouraged to lose weight for good health 5. The importance of monitoring blood sugar regularly was reviewed. 6. The importance of monitoring the HBA1c level regularly was reviewed. 7. The importance of prper foot care and regularly checking feet to prevent sores and loss of limbs was reviewed. 8. The importance of keeping BP at or below 130/80 to prevent stroke, heart attacks, kidney failure, blindness was reviewed. Spent approximately 45minutes with patient with over 50% of time spent in discussion and counseling regarding medication adjustment, symptoms and treatment of hypoglycemia, diet adherence, and checking BG before driving. 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 insulin use: without skilled nursing use Hyperthyroidism E05.90 Time Spent (min) 45 10/22/17 1018 <Electronically signed by Natacha POPE> Date Natacha POPE Cosigner Signature: Date (if applicable) CC: CNPTOUTREACH Observed: 10/22/2017 Status: COMPLETED Source: [place] 12:00 AM [facility] REPOSITORY Patient Outreach (INTMWS) BRIT COTTO ([id number]) 1990 F Date Time Provider Department 10/22/17 GALINA FRAIRE ([place]) INTMWS During your visit today, we recorded the following information about you: Galina Fraire Furniture Restorer 10/22/2017 1:50 PM Signed [facility] CARE GAP REGISTRY DOCUMENTATION (OUTSIDE TEAMLET) Provider Action/FYI: Please file [email or web address] PSR Action/FYI: Patient identified by name and date of . Last BP/Labs: Blood Pressure: Last 3 Encounter BP Readings: Date: BP: 07/20/2017 122/76 07/07/2017 110/80 09/29/2011 86/60 Lipids: Cholesterol, Total (mg/dL) Date Value 07/07/2017 126 HDL Cholesterol (mg/dL) Date Value 07/07/2017 39 LDL Cholesterol (mg/dL) Date Value 07/07/2017 71 Triglyceride (mg/dL) Date Value 07/07/2017 80 HGB A1C: Lab Results Component Value Date HBA1C 10.4 07/07/2017 TSH: No results found for: TSH) ? Patient has the following care gap registry disease diagnosis:DM ? Patient has the following open care gaps:DM - Last HGBA1C is NOT under 9% ? Last office visit: 07/20/2017 ? Future office visit:Follow-up dm next available with Provider pcp or client support administrator with labs prior (hgba1c pending) Health Maintenance Due: DILATED RETINAL EXAM due on 1992 TETANUS due on 10/07/2003 HPV VACCINE(1 of 3 - Female 3 Dose Series) due on 10/07/2003 DIABETIC FOOT EXAM due on 2008 ONE PNEUMOVAX PRIOR TO AGE 65 due on 2008 INFLUENZA(1) due on 03/30/2017 Galina Fraire [facility] Galina Fraire [facility] 10/22/2017 1:50 PM Signed I spoke with Brit and she states she is now seeing a different physician. Dr. Ahumada removed as PCP. Allergies As of Date: 10/22/2017 Noted Allergy Reaction Rey rubalcava [Other] 09/29/2011 14 - Other: See Comments Comments: Face breaks out in purple spots when she eats rey rubalcava. Date Reviewed: 07/20/2017 Reviewed by: Delmis Molina [facility] - Fully Assessed Reason for Visit: [facility]/Care Gap Outreach [[id number]] Primary Visit Diagnosis:Uncontrolled type 2 diabetes mellitus without complication, without long-term current use of insulin (HCC) [E11.65] Prescriptions as of 10/22/2017 Sig: METFORMIN ER 500 MG TABLET,EX* Take 1 tablet by mouth twice * BLOOD SUGAR DIAGNOSTIC STRIPS Test blood sugar(s) 3 times d* BLOOD-GLUCOSE METER Dx: Type 2 DM - Uncontrolled * LANCETS 28 GAUGE Test blood sugar(s) 2 times d* Problem List As Of Date 10/22/2017 Noted Resolved 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 9:32 AM [facility] REPOSITORY TYPE CODE TESTS RESULT OUT OF REFERENCE UNITS RANGE LAB WBC(LOINC) 4.60-10.80 10 3/mcL Low WBC 4.30 LAB RBCCT(LOINC 4.20-5.40 10 6/mcL ) RBC 4.91 LAB HGB(LOINC) 12.0-16.0 G/dL Hgb 12.9 LAB HCT(LOINC) 37.0-47.0 % Hct 38.8 LAB MCV(LOINC) 80.0-94.0 fL Low MCV 78.9 LAB MCH(LOINC) 27.0-31.2 pg Low MCH 26.4 LAB MCHC(LOINC) 33.0-37.0 G/dL MCHC 33.4 LAB RDW(LOINC) 11.5-14.5 % High RDW 14.7 LAB PLT(LOINC) 130-400 10 3/mcL Platelet 269 LAB MPV(LOINC) 7.4-10.4 fL MPV 7.7 Performed By: #### CBC, ADIFF, ANEU, LIPID, GFR, FT4, FT3, TSH, CMP, ISLET, FTESTO, TSIG #### [address] [address] #### VIDH, INSLN, MCRSO, CPEP #### [address] [address] .AUTO DIFF Collected: 10/17/2017 Status: F Source: [facility] 9:32 AM [facility] REPOSITORY TYPE CODE TESTS RESULT OUT OF REFERENCE UNITS RANGE LAB FRANKIE(LOINC) 37.0-80.0 % Neutrophil % 40.7 LAB LYM(LOINC) 10.0-50.0 % Lymphocyte % 48.3 LAB MON(LOINC) 1.7-13.0 % Monocyte % 7.9 LAB EO(LOINC) 0.0-7.0 % Eosinophil % 2.6 LAB BAS(LOINC) 0.0-2.5 % Basophil % 0.5 LAB ABLYM(LOIN 0.77-3.85 10 3/mcL C) Lymphocyte, 2.10 Absolute LAB SURESH(LOINC 0.15-1.00 10 3/mcL ) Monocyte, 0.30 Absolute LAB AEOS(LOINC 0.00-0.40 10 3/mcL ) Eosinophil, 0.10 Absolute LAB ABAS(LOINC 0.00-0.19 10 3/mcL ) Basophil, 0.00 Absolute Performed By: #### CBC, ADIFF, ANEU, LIPID, GFR, FT4, FT3, TSH, CMP, ISLET, FTESTO, TSIG #### [address] [address] #### VIDH, INSLN, MCRSO, CPEP #### [place] [address] .NEUABS Collected: 10/17/2017 Status: F Source: [facility] 9:32 AM [facility] REPOSITORY TYPE CODE TESTS RESULT OUT OF REFERENCE UNITS RANGE LAB ANEU(LOINC) 2.85-6.16 10 3/mcL Low Neutrophil, 1.80 Absolute Performed By: #### CBC, ADIFF, ANEU, LIPID, GFR, FT4, FT3, TSH, CMP, ISLET, FTESTO, TSIG #### [place] [address] #### VIDH, INSLN, MCRSO, CPEP #### [place] [address] LIPID Collected: 10/17/2017 Status: F Source: [facility] 9:32 AM [facility] REPOSITORY TYPE CODE TESTS RESULT OUT OF REFERENCE UNITS RANGE LAB CHOL(LOINC 131-200 mg/dL ) Cholesterol 184 Result Comment: Cholesterol Reference Interval: Less than 200 Desirable 200-239 Borderline high risk 240 and above High risk LAB TRIG(LOINC) 40-150 mg/dL Triglycerides 86 Result Comment: Triglyceride Reference Interval: Less than 150 Normal 150-199 Borderline high risk 200-499 High risk 500 or higher Very high risk LAB HD(LOINC) 35-90 mg/dL HDL Cholesterol 40 Result Comment: HDL Reference Interval: Less than 40 Low - high risk 60 or above Optimal/lowers risk LAB LDL(LOINC) 0-130 mg/dL LDL Cholesterol 127 Result Comment: LDL is a calculated result and requires a 12-hr fast. LDL Reference Interval: Less than 100 Optimal 100-129 Near or above optimal 130-159 Borderline high risk 160-189 High risk 190 and above Very high risk Performed By: #### CBC, ADIFF, ANEU, LIPID, GFR, FT4, FT3, TSH, CMP, ISLET, FTESTO, TSIG #### [facility] [address] [place], [place] [address] #### VIDH, INSLN, MCRSO, CPEP #### [facility] [address] [place] [address] .GFR Collected: 10/17/2017 Status: F Source: [facility] 9:32 AM [facility]IT[facility] TYPE CODE TESTS RESULT OUT OF REFERENCE UNITS RANGE LAB GFRAA(LOINC ml/min/1.73 ) sqm GFR 196 Ukrainian Result Comment: GFR Population mean for , Non- Americans Ages 20-29 = 116 mL/min/1.73 sq.m. Ages 30-39 = 107 mL/min/1.73 sq.m. Ages 40-49 = 99 mL/min/1.73 sq.m. Ages 50-59 = 93 mL/min/1.73 sq.m. Ages 60-69 = 85 mL/min/1.73 sq.m. Ages 70+ = 75 mL/min/1.73 sq.m. Chronic Kidney Disease: Less than 60 mL/min/1.73 square meters End Stage Renal Disease: Less than 15 mL/min/1.73 square meters LAB GFRNO(LOINC) ml/min/1.73sqm GFR Non- >60 Result Comment: GFR Population mean for , Non- Americans Ages 20-29 = 116 mL/min/1.73 sq.m. Ages 30-39 = 107 mL/min/1.73 sq.m. Ages 40-49 = 99 mL/min/1.73 sq.m. Ages 50-59 = 93 mL/min/1.73 sq.m. Ages 60-69 = 85 mL/min/1.73 sq.m. Ages 70+ = 75 mL/min/1.73 sq.m. Chronic Kidney Disease: Less than 60 mL/min/1.73 square meters End Stage Renal Disease: Less than 15 mL/min/1.73 square meters Performed By: #### CBC, ADIFF, ANEU, LIPID, GFR, FT4, FT3, TSH, CMP, ISLET, FTESTO, TSIG #### [address] [address] #### VIDH, INSLN, MCRSO, CPEP #### [place] [address] FT4 Collected: 10/17/2017 Status: F Source: [facility] 9:32 AM [facility] REPOSITORY TYPE CODE TESTS RESULT OUT OF RANGE REFERENCE UNITS LAB FT4(LOINC) 0.6-1.7 ng/mL Free T4 1.1 Performed By: #### CBC, ADIFF, ANEU, LIPID, GFR, FT4, FT3, TSH, CMP, ISLET, FTESTO, TSIG #### [place] [address] #### VIDH, INSLN, MCRSO, CPEP #### [place] [address] FT3 Collected: 10/17/2017 Status: F Source: [facility] 9:32 AM [facility] [place] REPOSITORY TYPE CODE TESTS RESULT OUT OF RANGE REFERENCE UNITS LAB FT3(LOINC) 2.3-4.0 pg/mL Free T3 2.6 Performed By: #### CBC, ADIFF, ANEU, LIPID, GFR, FT4, FT3, TSH, CMP, ISLET, FTESTO, TSIG #### [place] [address] #### VIDH, INSLN, MCRSO, CPEP #### [place] [address] VIDH Collected: 10/17/2017 Status: F Source: [facility] 9:32 AM [facility] [place] REPOSITORY TYPE CODE TESTS RESULT OUT OF RANGE REFERENCE UNITS LAB VIDH(LOINC) ng/mL Vit. D 12 25-Hydroxy Result Comment: Interpretive Values Based on Total 25(OH)D: Severe Deficiency <20 ng/mL Mild to Moderate Deficiency 20-30 ng/mL Optimum Levels 30-100 ng/mL Toxicity Possible >100 ng/mL Performed By: #### CBC, ADIFF, ANEU, LIPID, GFR, FT4, FT3, TSH, CMP, ISLET, FTESTO, TSIG #### [address] [address] #### VIDH, INSLN, MCRSO, CPEP #### [place] [address] INSLN Collected: 10/17/2017 Status: F Source: [facility] 9:32 AM [facility] REPOSITORY TYPE CODE TESTS RESULT OUT OF REFERENCE UNITS RANGE LAB INSLN(LOINC 2.60-37.60 mcIU/mL ) Insulin 6.80 Performed By: #### CBC, ADIFF, ANEU, LIPID, GFR, FT4, FT3, TSH, CMP, ISLET, FTESTO, TSIG #### [place] [address] #### VIDH, INSLN, MCRSO, CPEP #### [place] [address] TSH Collected: 10/17/2017 Status: F Source: [facility] 9:32 AM [facility] REPOSITORY TYPE CODE TESTS RESULT OUT OF RANGE REFERENCE UNITS LAB TSH(LOINC) 0.27-4.20 mcIU/mL Low TSH 0.01 Result Comment: Potential microparticle carryover Performed By: #### CBC, ADIFF, ANEU, LIPID, GFR, FT4, FT3, TSH, CMP, ISLET, FTESTO, TSIG #### [place] [address] #### VIDH, INSLN, MCRSO, CPEP #### [place] [address] CMP Collected: 10/17/2017 Status: F Source: [facility] 9:32 AM [facility] REPOSITORY TYPE CODE TESTS RESULT OUT OF REFERENCE UNITS RANGE LAB 1547-9 70-105 mg/dL GLUCOSE High 119 LAB NA(LOINC) 136-146 mEq/L Sodium Level 138 LAB K(LOINC) 3.5-5.1 mEq/L Potassium Level 4.3 LAB CL(LOINC) 98-107 mEq/L Chloride 103 LAB CO2(LOINC) 22-29 mEq/L CO2 24 LAB EBAL(LOINC mEq/L ) Electrolyte Balance 11.0 LAB BUN(LOINC) 7.0-18.0 mg/dL BUN 7.3 LAB CRE(LOINC) 0.6-1.2 mg/dL Low Creatinine Lvl (s) 0.5 LAB BC(LOINC) 7-27 ratio BUN/Creatinine 15 Ratio LAB CA(LOINC) 8.4-10.2 mg/dL Calcium Lvl 9.7 LAB PROT(LOINC 6.0-8.3 G/dL ) Total Protein 6.5 LAB ALB(LOINC) 3.5-5.0 G/dL Albumin Level 3.9 LAB GLB(LOINC) G/dL Globulin 2.6 LAB AG(LOINC) 1.1-2.5 ratio A/G Ratio 1.5 LAB BILT(LOINC 0.2-1.0 mg/dL ) Bili Total 0.2 LAB AP(LOINC) 40-135 IU/L Alk Phos 84 LAB AST(LOINC) 10-40 IU/L AST/SGOT 11 LAB ALT(LOINC) 10-35 IU/L ALT/SGPT 17 Performed By: #### CBC, ADIFF, ANEU, LIPID, GFR, FT4, FT3, TSH, CMP, ISLET, FTESTO, TSIG #### [facility] [address] [place], [place] [address] #### VIDH, INSLN, MCRSO, CPEP #### [address] [address] ISLET Collected: 10/17/2017 Status: F Source: [facility] 9:32 AM [facility] REPOSITORY TYPE CODE TESTS RESULT OUT OF RANGE REFERENCE UNITS LAB ISLET(LOINC ) Islet <1:4 Cell Ab Result Comment: Reference range: <1:4 (NOTE) INTERPRETIVE INFORMATION: Islet Cell Ab, IgG Islet cell antibodies (ICAs) are associated with type 1 diabetes (TID), an autoimmune endocrine disorder. ICAs may be present years before the onset of clinical symptoms. To calculate Juvenile Diabetes Foundation (JDF) units: multiply the titer x 5 (1:8 8 x 5 = 40 JDF Units). Test developed and characteristics determined by [facility]. See Compliance Statement A: [employer] Performed by [facility], [address] [place] [address] [email or web address], Luigi Nguyen MD, Lab. Director Performed By: #### CBC, ADIFF, ANEU, LIPID, GFR, FT4, FT3, TSH, CMP, ISLET, FTESTO, TSIG #### [facility] [address] [place], [place] [address] #### VIDH, INSLN, MCRSO, CPEP #### [address] [address] FTESTO Collected: 10/17/2017 Status: F Source: [facility] 9:32 AM [facility] REPOSITORY TYPE CODE TESTS RESULT OUT OF REFERENCE UNITS RANGE LAB TESTO(LOIN <40 ng/dL C) Testosterone 39 Result Comment: Performed By: [place] [address] Date Night Sitter: Kylie Purvis M.D. CLIA#: [id number] Phone#: LAB FREE(LOINC) 0.8-2.3 % Free Testosterone % 2.2 Result Comment: Performed By: [facility] [employer] [facility] [place] [id number] Date Night Sitter: Kylie Purvis M.D. CLIA#: [id number] Phone#: LAB FTES(LOINC) 1.8-10.4 pg/mL Free Testosterone 8.6 Result Comment: This test was developed and its performance characteristics determined by [facility]'s [facility] [place] ([facility]). It has not been cleared or approved by the FDA. [facility] is regulated under CLIA as qualified to perform high-complexity testing. This test is used for clinical purposes. It should not be regarded as investigational or for research. Performed By: [facility] [employer] [address] [place] [id number] Date Night Sitter: Kylie Purvis M.D. CLIA#: [id number] Phone#: Performed By: #### CBC, ADIFF, ANEU, LIPID, GFR, FT4, FT3, TSH, CMP, ISLET, FTESTO, TSIG #### [address] [address] #### VIDH, INSLN, MCRSO, CPEP #### [address] [address] MCRS1 Collected: 10/17/2017 Status: F Source: [facility] 9:32 AM [facility] REPOSITORY TYPE CODE TESTS RESULT OUT OF REFERENCE UNITS RANGE LAB MCRSO(LOIN 0-35 IU/mL C) Microsomal Ab 20 Result Comment: This result represents Anti-TPO antibodies which are synonymous with microsomal antibodies. Performed By: #### CBC, ADIFF, ANEU, LIPID, GFR, FT4, FT3, TSH, CMP, ISLET, FTESTO, TSIG #### [address] [address] #### VIDH, INSLN, MCRSO, CPEP #### [place] [address] TSI Collected: 10/17/2017 Status: F Source: [facility] 9:32 AM [facility] REPOSITORY TYPE CODE TESTS RESULT OUT OF REFERENCE UNITS RANGE LAB TSI(LOINC) <150 Thyroid Stim. 27 Imm-Glob. Result Comment: Performed By: [place] [address] [place] [address] Date Night Sitter: Zulay Ma#: [id number] Phone#: Performed By: #### CBC, ADIFF, ANEU, LIPID, GFR, FT4, FT3, TSH, CMP, ISLET, FTESTO, TSIG #### [address] [address] #### VIDH, INSLN, MCRSO, CPEP #### [place] [address] CPEP Collected: 10/17/2017 Status: F Source: [facility] 9:32 AM [facility] REPOSITORY TYPE CODE TESTS RESULT OUT OF RANGE REFERENCE UNITS LAB CPEP(LOINC) 1.0-7.6 ng/mL C-Peptide 1.4 Performed By: #### CBC, ADIFF, ANEU, LIPID, GFR, FT4, FT3, TSH, CMP, ISLET, FTESTO, TSIG #### [facility] [address] [place], [place] [address] #### VIDH, INSLN, MCRSO, CPEP #### [facility] [address] [place] [address] ANGIOGRAPHY CHEST Observed: 10/14/2017 Status: F Source: [place] W/CONTRAST 12:04 AM [facility] REPOSITORY ORIGINAL CT ANGIOGRAPHY CHEST W/CONTRAST: Multiplanar sagittal, axial, coronal, and 3D reconstructions were reviewed on a separate workstation. This exam was performed according to our departmental dose optimization program, and includes the fo llowing measures where applicable: automated exposure control, adjustment of the mAs and/or kVp according to patient size and/or exam, and an iterative reconstruction algorithm. CLINICAL INDICATION: Chest pain; suspect pulmonary embolism. The patient reports stabbing chest pain. COMPARISON: Radiographs of the chest, 10/13/2017 FINDINGS: The contrast bolus is adequate for the evaluation of the central and lobar pulmonary arterial tree. Respiratory motion compromises evaluation of the segmental and subsegmental branches, partic ularly within the lower lobes the lungs. No intraluminal thrombus or abrupt arterial cut off is seen to suggest acute pulmonary embolism. The main pulmonary artery is normal in caliber, and there is no evidence of RIGHT ventricular strain. There is normal enhancement of the thoracic aorta without aneurysm or evidence of dissection. The heart size is normal, and there is no pericardial effusion. The trachea and mainstem bronchi are clear. The esophagus is nondilated, and there is enlargement and heterogeneous enhancement of the right thyroid lobe with small cystic nodules, better assessed by th e prior thyroid ultrasound. A dominant nodule near the isthmus measures 9 mm on image 29. No thoracic lymphadenopathy. No focal consolidation, mass, or suspicious pulmonary nodule. There is no pleural effusion. Mild degenerative changes are seen throughout the thoracic spine. No acute osseous abnormality or suspicious bone lesion. Images through the upper abdomen are noncontributory. IMPRESSION: No evidence of pulmonary embolism or acute intrathoracic abnormality. Multinodular thyroid goiter which has been previously assessed by thyroid ultrasound. I have personally reviewed the images of this examination and agree with the resident's findings and interpretation. Interpreted By: Rommel Regalado MD Preliminary Report By: Teto Fletcher MD Electronically Signed By: Rommel Regalado MD Dictated Date: 10/14/2017 12:19:15 AM Prelim Date: 10/14/2017 12:26:24 AM Sign Date: 10/14/2017 12:30:09 AM XR CHEST 2 VIEWS Observed: 10/13/2017 Status: F Source: [facility] 8:15 PM [facility] REPOSITORY ORIGINAL XR CHEST 2 VIEWS CLINICAL STATEMENT: Chest pain and shortness of breath.. COMPARISON: None. FINDINGS: The cardiac and mediastinal contours are within normal limits. There is no significant pulmonary vascular congestion, focal consolidation, pleural effusion, or pneumothorax. No acute osseous a bnormality is identified. Dextroconvex curvature is seen at the thoracolumbar junction. IMPRESSION: No acute radiographic findings. I have personally reviewed the images of this examination and agree with the resident's findings and interpretation. Interpreted By: Marin Hammer MD Preliminary Report By: Teto Fletcher MD Electronically Signed By: Marin Hammer MD Dictated Date: 10/13/2017 8:27:34 PM Prelim Date: 10/13/2017 8:28:32 PM Sign Date: 10/13/2017 8:38:10 PM CBC Collected: 10/13/2017 Status: F Source: [facility] 7:36 PM [facility] REPOSITORY TYPE CODE TESTS RESULT OUT OF REFERENCE UNITS RANGE LAB WBC(LOINC) 4.60-10.80 10 3/mcL WBC 9.00 LAB RBCCT(LOINC 4.20-5.40 10 6/mcL ) RBC 4.93 LAB HGB(LOINC) 12.0-16.0 G/dL Hgb 12.7 LAB HCT(LOINC) 37.0-47.0 % Hct 38.7 LAB MCV(LOINC) 80.0-94.0 fL Low MCV 78.5 LAB MCH(LOINC) 27.0-31.2 pg Low MCH 25.8 LAB MCHC(LOINC) 33.0-37.0 G/dL Low MCHC 32.9 LAB RDW(LOINC) 11.5-14.5 % High RDW 14.6 LAB PLT(LOINC) 130-400 10 3/mcL Platelet 231 LAB MPV(LOINC) 7.4-10.4 fL MPV 7.5 Performed By: #### CBC, ADIFF, ANEU, DIMER, TROP, GFR, BMP #### [address] [address] .AUTO DIFF Collected: 10/13/2017 Status: F Source: [facility] 7:36 [facility] REPOSITORY TYPE CODE TESTS RESULT OUT OF REFERENCE UNITS RANGE LAB FRANKIE(LOINC) 37.0-80.0 % Neutrophil % 72.7 LAB LYM(LOINC) 10.0-50.0 % Lymphocyte % 20.2 LAB MON(LOINC) 1.7-13.0 % Monocyte % 6.1 LAB EO(LOINC) 0.0-7.0 % Eosinophil % 0.7 LAB BAS(LOINC) 0.0-2.5 % Basophil % 0.3 LAB ABLYM(LOIN 0.77-3.85 10 3/mcL C) Lymphocyte, 1.80 Absolute LAB SURESH(LOINC 0.15-1.00 10 3/mcL ) Monocyte, 0.50 Absolute LAB AEOS(LOINC 0.00-0.40 10 3/mcL ) Eosinophil, 0.10 Absolute LAB ABAS(LOINC 0.00-0.19 10 3/mcL ) Basophil, 0.00 Absolute Performed By: #### CBC, ADIFF, ANEU, DIMER, TROP, GFR, BMP #### [address] [address] .NEUABS Collected: 10/13/2017 Status: F Source: [facility] 7:36 [facility] REPOSITORY TYPE CODE TESTS RESULT OUT OF REFERENCE UNITS RANGE LAB ANEU(LOINC) 2.85-6.16 10 3/mcL High Neutrophil, 6.50 Absolute Performed By: #### CBC, ADIFF, ANEU, DIMER, TROP, GFR, BMP #### [address] [address] DIMER Collected: 10/13/2017 Status: F Source: [facility] 7:36 [facility] REPOSITORY TYPE CODE TESTS RESULT OUT OF RANGE REFERENCE UNITS LAB DIMER(LOINC <=0.49 mcg/mL FEU ) High D-Dimer 0.51 Result Comment: The result of the D-Dimer test should be evaluated in the context of all the clinical and laboratory data available. In those instances where the laboratory result does not agree with the clinical evaluation, additional tests should be performed accordingly. Performed By: #### CBC, ADIFF, ANEU, DIMER, TROP, GFR, BMP #### [place] [id number] [place], [place] [address] TROP Collected: 10/13/2017 Status: F Source: [facility] 7:36 [facility] REPOSITORY TYPE CODE TESTS RESULT OUT OF REFERENCE UNITS RANGE LAB TROP(LOINC) 0.00-0.30 ng/mL Troponin <0.30 Result Comment: Below measuring range >=0.30 Consistent with cardiac damage, increased clinical risk and possibility of myocardial infarction. Serial measurements, clinical history, appropriate symptoms and/or ECG changes may help assess possibility of [place]. *Other non-acute coronary syndrome conditions such as CHF, myocarditis, pulmonary emboli, sepsis and cardiac surgery could result in myocardial damage and increased troponin levels. Performed By: #### CBC, ADIFF, ANEU, DIMER, TROP, GFR, BMP #### [address] [address] .GFR Collected: 10/13/2017 Status: F Source: [facility] 7:36 [facility] REPOSITORY TYPE CODE TESTS RESULT OUT OF REFERENCE UNITS RANGE LAB GFRAA(LOINC ml/min/1.73 ) sqm GFR 194 Ukrainian Result Comment: GFR Population mean for , Non- Americans Ages 20-29 = 116 mL/min/1.73 sq.m. Ages 30-39 = 107 mL/min/1.73 sq.m. Ages 40-49 = 99 mL/min/1.73 sq.m. Ages 50-59 = 93 mL/min/1.73 sq.m. Ages 60-69 = 85 mL/min/1.73 sq.m. Ages 70+ = 75 mL/min/1.73 sq.m. Chronic Kidney Disease: Less than 60 mL/min/1.73 square meters End Stage Renal Disease: Less than 15 mL/min/1.73 square meters LAB GFRNO(LOINC) ml/min/1.73sqm GFR Non- >60 Result Comment: GFR Population mean for , Non- Americans Ages 20-29 = 116 mL/min/1.73 sq.m. Ages 30-39 = 107 mL/min/1.73 sq.m. Ages 40-49 = 99 mL/min/1.73 sq.m. Ages 50-59 = 93 mL/min/1.73 sq.m. Ages 60-69 = 85 mL/min/1.73 sq.m. Ages 70+ = 75 mL/min/1.73 sq.m. Chronic Kidney Disease: Less than 60 mL/min/1.73 square meters End Stage Renal Disease: Less than 15 mL/min/1.73 square meters Performed By: #### CBC, ADIFF, ANEU, DIMER, TROP, GFR, BMP #### [address] [address] BMP Collected: 10/13/2017 Status: F Source: [facility] 7:36 PM [facility] REPOSITORY TYPE CODE TESTS RESULT OUT OF REFERENCE UNITS RANGE LAB 1547-9 70-105 mg/dL GLUCOSE 88 LAB NA(LOINC) 136-146 mEq/L Sodium Level 136 LAB K(LOINC) 3.5-5.1 mEq/L Low Potassium Level 3.4 LAB CL(LOINC) 98-107 mEq/L Chloride 100 LAB CO2(LOINC) 22-29 mEq/L Low CO2 19 LAB EBAL(LOINC mEq/L ) Electrolyte Balance 17.0 LAB BUN(LOINC) 7.0-18.0 mg/dL Low BUN 6.8 LAB CRE(LOINC) 0.6-1.2 mg/dL Low Creatinine Lvl (s) 0.5 LAB BC(LOINC) 7-27 ratio BUN/Creatinine 14 Ratio LAB CA(LOINC) 8.4-10.2 mg/dL Calcium Lvl 9.5 Performed By: #### CBC, ADIFF, ANEU, DIMER, TROP, GFR, BMP #### [address] [address] TSH Collected: 10/13/2017 Status: F Source: [facility] 7:36 PM [facility] [place] REPOSITORY TYPE CODE TESTS RESULT OUT OF RANGE REFERENCE UNITS LAB TSH(LOINC) 0.27-4.20 mcIU/mL Low TSH >0.10 Performed By: #### TSH, FT4 #### [address] [address] FT4 Collected: 10/13/2017 Status: F Source: [facility] 7:36 PM [facility] [place] REPOSITORY TYPE CODE TESTS RESULT OUT OF RANGE REFERENCE UNITS LAB FT4(LOINC) 0.6-1.7 ng/mL Free T4 1.3 Performed By: #### TSH, FT4 #### [address] [place], [place] [address] THYROID IMAGE QUANT Observed: 10/10/2017 Status: F Source: [place] MEASURE 8:51 AM [facility] RE[facility]IT[facility] Imaging Services [address] [address] Thyroid Image Quant Measure MR#: [id number] Acct: [id number] Name: BRIT COTTO Rep #: [id number] : 1990 F 27 From: Gordo Stevenson MD PCP: Care Physician, No Primary Status: REG CLI Study: Thyroid Image Quant Measure Date of Exam: 10/10/17 Exam# [id number] Ordering Dr: Natacha Camara CLINICAL: Female, 27 years old. Hyperthyroid. Right-sided nodule or mass. THYROID IMAGING STUDY TECHNIQUE: The patient was administered a 306 uCi I-123 capsule by mouth. COMPARISON STUDIES : NM - None. CR - Not available for review at this time. CT - Not available for review at this time. MR - Not available for review at this time. US - 07/12/2017, which showed a 3.3 cm right thyroid mass. FINDINGS: The 4 hour I-123 radioactive iodine thyroidal uptake was calculated to be 48% (normal 5-25 %). The 24-hour I-123 radioactive iodine thyroidal uptake was calculated to be 67% (normal 5 to 35%). The iodine uptake is localized only to the right thyroid mass, with suppression of the remainder of the thyroid. NM/Thyroid Image Quant Measure IMPRESSION: Findings are consistent with a hyperactive, autonomous, hot right thyroid nodule. These can usually be very effectively treated with radioiodine therapy. 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: Signed OFFICE VISIT REPORT Observed: 10/02/2017 Status: F Source: [place] 12:25 PM [facility] Services [place] [address] OFFICE VISIT Date of Service: 10/02/17 MR#: [id number] Acct: [id number] Patient: BRIT COTTO Rep #: [id number] : 1990 Provider: Natacha Camara NP Age/Sex: 26/F [place] [facility] Status: Signed Intake Vital Signs10/02/17 Height 5 ft 3 in 10/02/17 Weight: 135 lb 6 oz 10/02/17 Body Mass Index (BMI) 24.0 10/02/17 Blood Pressure 127/89 10/02/17 Blood Pressure Location Lt popliteal 10/02/17 Blood Pressure Position Sitting Intake Visit Reasons: Thyroid dysfunction 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: No Accompanied by: Self Is patient in pain?: No Allergies No Known Allergies Allergy (Verified 10/02/17 08:34) Medications medroxyprogesterone 400 mg/mL intramuscular suspension 400 mg IM .q 3 months ml 08/13/17 [History Confirmed 10/02/17] metformin 500 mg tablet 500 mg PO QDAY tab 08/13/17 [History Confirmed 10/02/17] Is last menstrual period known: No Post menopausal: No Patient : No PFSH Medical History Diabetes type 2, controlled (Acute) Graves disease (Acute) Hyperthyroidism (Acute) Polycystic ovarian disease (Acute) Sleep apnea (Acute) Family History Unknown Hypertension Social History Smoking Status: Current some day smoker alcohol intake: never substance use type: does not use HPI HPI Details: BRIT COTTO, is a 26 F who presents to the office today for hyperthyroidism. Seeing Dr. Gardner from [place] who is ENT. She reports she was diagnosed hyperthyroid a few years back but never had insurance. She now has insurance and is trying to follow up on this. Here to review labs. Did not get my message to get the JOSEPH 123 done. She agrees to schedule today. TRAB lab was lost and not processed. She understands this will need to be redrawn. Severity, modifying factors, context, and associated signs and symptoms are as follows: Thyroid pain: No Energy: Fine Sleep: awakened refreshed Temp: No intolerance GI: Normal bowel Weight: Flucuates Eyes: No change in vision Memory: unchanged Diaphoresis: Not significant Skin: Dry Hair : Unchanged Neuro: No numbness, tingling or tremors Is also diabetic. Has been watching her diet and exercising. She finds BG 80-113 with a couple of BG in the 140 range. SMBG Before meals and after Diet Trying to limit carbs. Eating healthy ROS Const Constitutional: No anorexia, body ache, chills, fatigue, fever(s), frequent falls, decreased energy, malaise, night sweats, weakness, weight change, sleep problems, abnormal sleep pattern, change in appetite, other, headache(s), snoring or excessive sweating Eyes Eyes: No blurry vision, change in vision, double vision, discharge, dry eyes, bulging eyes, floaters, visual disturbances, eye pain, light sensitivity, spots in vision, tunnel vision or other ENT ENT: No abnormal hearing, ear pain, ear discharge, ear pressure, hearing loss, tinnitus, dizziness/vertigo, balance problems, nosebleed/epistaxis, nasal congestion, nasal obstruction, nose pain, sinus pressure, sinus pain, nasal discharge, post nasal drip, headache(s), facial pain, dental pain, dry mouth, bad breath, hoarseness, lip swelling, mouth lesions, mouth pain, sore throat, tongue swelling, throat swelling, other, difficulty swallowing or neck pain Resp Respiratory: No cough, change in phlegm color, chest congestion, excessive phlegm production, hemoptysis, pain on inspiration, shortness of breath, pain with cough, snoring, stridor, wheezing or other Cardio Cardiology: No chest pain at rest, chest pain with exertion, leg pain with exertion, excessive sweating, shortness of breath, dyspnea on exertion, generalized swelling, irregular heart rhythm, lightheadedness, orthopnea, radiating jaw, neck or arm pain, fast heart rate, slow heart rate, palpitations or other Gastro GI: No abdominal pain, belching, bloating, change in bowel habits, change in stool character, coffee ground emesis, constipation, cramping, diarrhea, heartburn, difficulty swallowing, feeling full early, excessive flatus, incontinent of stools, Vomiting blood/hematemesis, blood in stool, loose stools, Black,tarry stools, nausea/dyspepsia, pain with swallowing, vomiting or other Genitourinary-Female: Positive for abnormal vaginal bleeding and heavy periods; no difficulty urinating, burning urination, painful urination, urinary incontinence, urinary frequency, urinary urgency, urinary hesitancy, urinary retention, blood in urine, Frequent nighttime urination/ nocturia, post void dribbling, suprapubic fullness, side pain, sexual problems, genital lesions, genital itching, hot flashes, abnormal periods, absent period, painful periods, light periods, difficulty getting , painful intercourse, pelvic pain, vaginal dryness, vaginal odor, Vaginal Itching or other Musc Musculoskeletal: No abnormal walking, joint pain, back pain, deformity, joint swelling, limited range of motion, loss of height, muscle cramps, muscle weakness, decreased muscle mass, body aches, neck pain, numbness, radiating pain into limb, stiffness, tingling or other Neuro Neurology: No frequent falls, weakness, visual disturbances, abnormal hearing, headache(s), abnormal walking, numbness or tingling Psych Psychiatric: No abnormal sleep pattern, No change in appetite Endo Endocrine: No fatigue, other or excessive sweating Aller/Imm Allergy/Immunologic: No lip swelling, tongue swelling, throat swelling or wheezing Exam Const General: comfortable, no acute distress Nutritional Appearance: well nourished Orientation: oriented x3 [facility] Head: normal to inspection, atraumatic Ears: hearing grossly normal bilaterally Nose: no nasal discharge Mouth: oral mucosae normal, moist mucous membranes Teeth and gingiva: dentition normal Eyes General: appearance normal, both eyes and all related structures Conjunctivae: conjunctivae normal Sclera: sclerae normal Pupils: PERRL Neck Thyroid: multiple nodules, lateral enlargement Chest Chest palpation AND inspection: deferred Resp Effort AND Inspection: normal respiratory effort, able to speak in complete sentences, symmetric chest movement Auscultation: Bilateral: Clear to Auscultation Cardio Rate: regular rate Rhythm: regular rhythm Heart Sounds: S1 normal, S2 normal GI Inspection: normal to inspection Auscultation: normal bowel sounds Palpation: soft General: deferred Musc Musculoskeletal: No muscle weakness Thoracic/Lumbar Spine: thoracic and lumbar spine normal to inspection Skin General: no rashes or lesions noted Wounds: no wounds Neuro General: gait normal, moves all extremities Cranial Nerves: CN's II-XI intact bilaterally Extrem General: normal to inspection, full ROM, normal capillary refill Psych Appearance: well kempt Mental Status: mental status grossly normal Mood: congruent mood Affect: normal affect Speech and Movement: speech and movement normal Attitude: cooperative Thought Process: normal Thought Content: normal Judgment: judgment good Assessment AND Plan 1. Hyperthyroidism E05.90 2. Controlled type 2 diabetes mellitus without complication, without long-term current use of insulin E11.9 Plan Doing very well with diabetes control. Is monitoring diet as well as exercising. BP 80-113 average. Have ordered C peptide to determine diabetes type. Patient Instructions 1. Please schedule follow up in 6 weeks 2. Lab work one week before appointment. 3. Discussed importance of regular exercise and recommend starting or continuing a regular exercise program for good health. 4. The patient was encouraged to lose weight for good health 5. The importance of monitoring blood sugar regularly was reviewed. 6. The importance of monitoring the HBA1c level regularly was reviewed. 7. The importance of proper foot care and regularly checking feet to prevent sores and loss of limbs was reviewed. 8. The importance of keeping BP at or below 130/80 to prevent stroke, heart attacks, kidney failure, blindness was reviewed. Spent approximately 30 minutes with patient with over 50% of time spent in discussion and counseling regarding medication adjustment, symptoms and treatment of hypoglycemia, diet adherence, and checking BG before driving. Also reviewed labs and discussed hyperthyroidism, s/s, treatment, and testing. 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 Time Spent (min) 30 10/02/17 1225 <Electronically signed by Natacha POPE> Date Natacha POPE Cosigner Signature: Date (if applicable) CC: MISCELLANEOUS LAB Collected: 10/02/2017 Status: F Source: [place] PROCEDURE 2 9:31 AM [facility] REPOSITORY Order Comment: Comments: John 65 autoantibodies Comments: John 65 autoantibodies List Test(s) Ordered by Physician: [id number] JOHN AUTOANTIBODIES SER RT TYPE CODE TESTS RESULT OUT OF RANGE REFERENCE UNITS LAB L801.1543 Normal [facility] LAB TEST 2 Result Comment: TEST RESULT LIMITS JOHN-65 Autoantibody JOHN-65 82657.7 U/mL 0.0 - 5.0 Results verified by repeat testing TESTING PERFORMED AT [facility]. ORIGINAL REPORT ON FILE IN LAB CONTAINS ADDITIONAL TEST SITE INFORMATION. Performed By: #### L801.1543 #### [facility] [address] [place], [place], [address] HEMOGLOBIN A1C Collected: 10/02/2017 Status: F Source: [place] 9:30 AM [facility] REPOSITORY TYPE CODE TESTS RESULT OUT OF RANGE REFERENCE UNITS LAB L501.9985 4.2-6.3 % Normal HGB A1C 5.8 Performed By: #### L501.9985 #### [facility] [address] [place], [address] MISCELLANEOUS LAB Collected: 10/02/2017 Status: F Source: [place] PROCEDURE 9:30 AM [facility] REPOSITORY Order Comment: Comments: TRAB tsh receptor antibodies. Test(s) Ordered: [id number] TRAB SER. RF TYPE CODE TESTS RESULT OUT OF RANGE REFERENCE UNITS LAB L801.1541 Normal [facility] LAB TEST Result Comment: TEST RESULT LIMITS Thyrotropin Receptor Ab, Serum < 0.50 IU/L 0.00-1.75 TESTING PERFORMED AT [facility]. ORIGINAL REPORT ON FILE IN LAB CONTAINS ADDITIONAL TEST SITE INFORMATION. Performed By: #### L801.1541 #### [facility] [address] [place], [address] OFFICE VISIT REPORT Observed: 09/27/2017 Status: F Source: [place] 8:02 AM [facility] REPOSITORY [facility] [address] [address] OFFICE VISIT Date of Service: 09/06/17 MR#: [id number] Acct: [id number] Patient: BRIT COTTO Rep #: [id number] : 1990 Provider: Natacha Camara NP Age/Sex: 26/F [place] [facility] Status: Signed Intake Vital Signs09/06/17 Height 5 ft 3 in 09/06/17 Weight: 139 lb 2 oz 09/06/17 Body Mass Index (BMI) 24.6 09/06/17 Blood Pressure 113/77 09/06/17 Blood Pressure Location Lt popliteal 09/06/17 Blood Pressure Position Sitting Intake Visit Reasons: Thyroid dysfunction 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: No Accompanied by: Self Is patient in pain?: No Allergies No Known Allergies Allergy (Verified 09/06/17 16:25) Medications medroxyprogesterone 400 mg/mL intramuscular suspension 400 mg IM .q 3 months ml 08/13/17 [History Confirmed 09/06/17] metformin 500 mg tablet 500 mg PO QDAY tab 08/13/17 [History Confirmed 09/06/17] PFSH Medical History Diabetes type 2, controlled (Acute) Graves disease (Acute) Hyperthyroidism (Acute) Polycystic ovarian disease (Acute) Sleep apnea (Acute) Family History Unknown Hypertension Social History Smoking Status: Current some day smoker alcohol intake: never substance use type: does not use HPI HPI Details: BRIT COTTO, is a 26 F who presents to the office today for consult of hyperthyroidism. States she was diagnosed around age [age] years old. She did not have insurance so she did not pursue treatment. Reports she is currently seeing Dr. Gardner for this and he is wanting to do a biopsy due to nodule but wants her treated to a euthyroid state. She reports she has anxiety, palpitations, acne, and extreme weight gain. Severity, modifying factors, context, and associated signs and symptoms are as follows: Thyroid pain: No Energy: Reduced Sleep: Not awakened refreshed Temp: Heat intolerance GI: Normal bowel Eyes: No change in vision Memory: unchanged Diaphoresis: Not significant Skin: Dry Hair : Unchanged Neuro: No numbness, tingling or tremors At time of visit: -Pt denies symptoms of hypertensive emergency (CP,SOB,KIDD, or blurred vision) and hypotension(dizziness or lightheadedness) -Pt denies symptoms of hypoglycemia ( sweaty, confusion, anxiety, tremor, hunger, palpitations) and hyperglycemia ( polydipsia, polyuria) -Pt denies potential medication adverse effect. No chart sent with patient. ROS Const Constitutional: No anorexia, body ache, chills, fatigue, fever(s), frequent falls, decreased energy, malaise, night sweats, weakness, weight change, sleep problems, abnormal sleep pattern, change in appetite, other, headache(s), snoring or excessive sweating Eyes Eyes: No blurry vision, change in vision, double vision, discharge, dry eyes, bulging eyes, floaters, visual disturbances, eye pain, light sensitivity, spots in vision, tunnel vision or other ENT ENT: Positive for nasal congestion and nasal discharge; no abnormal hearing, ear pain, ear discharge, ear pressure, hearing loss, tinnitus, dizziness/vertigo, balance problems, nosebleed/epistaxis, nasal obstruction, nose pain, sinus pressure, sinus pain, post nasal drip, headache(s), facial pain, dental pain, dry mouth, bad breath, hoarseness, lip swelling, mouth lesions, mouth pain, sore throat, tongue swelling, throat swelling, other, difficulty swallowing or neck pain Resp Respiratory: No cough, change in phlegm color, chest congestion, excessive phlegm production, hemoptysis, pain on inspiration, shortness of breath, pain with cough, snoring, stridor, wheezing or other Cardio Cardiology: No chest pain at rest, chest pain with exertion, leg pain with exertion, excessive sweating, shortness of breath, dyspnea on exertion, generalized swelling, irregular heart rhythm, lightheadedness, orthopnea, radiating jaw, neck or arm pain, fast heart rate, slow heart rate, palpitations or other Gastro GI: No abdominal pain, belching, bloating, change in bowel habits, change in stool character, coffee ground emesis, constipation, cramping, diarrhea, heartburn, difficulty swallowing, feeling full early, excessive flatus, incontinent of stools, Vomiting blood/hematemesis, blood in stool, loose stools, Black,tarry stools, nausea/dyspepsia, pain with swallowing, vomiting or other Genitourinary-Female: No difficulty urinating, burning urination, painful urination, urinary incontinence, urinary frequency, urinary urgency, urinary hesitancy, urinary retention, blood in urine, Frequent nighttime urination/ nocturia, post void dribbling, suprapubic fullness, side pain, sexual problems, genital lesions, genital itching, hot flashes, abnormal periods, abnormal vaginal bleeding, absent period, painful periods, light periods, heavy periods, difficulty getting , painful intercourse, pelvic pain, vaginal dryness, vaginal odor, Vaginal Itching or other Musc Musculoskeletal: No abnormal walking, joint pain, back pain, deformity, joint swelling, limited range of motion, loss of height, muscle cramps, muscle weakness, decreased muscle mass, body aches, neck pain, numbness, radiating pain into limb, stiffness, tingling or other Neuro Neurology: No frequent falls, weakness, visual disturbances, abnormal hearing, headache(s), abnormal walking, numbness or tingling Psych Psychiatric: No abnormal sleep pattern, No change in appetite Endo Endocrine: No fatigue, other or excessive sweating Aller/Imm Allergy/Immunologic: No lip swelling, tongue swelling, throat swelling or wheezing Exam Const General: no acute distress, healthy appearing Nutritional Appearance: well nourished Orientation: oriented x3 HEN[facility] Head: normal to inspection, atraumatic Ears: hearing grossly normal bilaterally Nose: no nasal discharge Mouth: oral mucosae normal, moist mucous membranes Teeth and gingiva: dentition normal Eyes General: appearance normal, both eyes and all related structures Conjunctivae: conjunctivae normal Sclera: sclerae normal Cornea: corneas normal Pupils: PERRL Neck Neck mass: Yes Thyroid: asymmetrical, solitary papule nodule Resp Effort AND Inspection: normal respiratory effort, able to speak in complete sentences, symmetric chest movement Auscultation: Bilateral: Clear to Auscultation Cardio Rate: regular rate Heart Sounds: S1 normal, S2 normal GI Inspection: normal to inspection Auscultation: normal bowel sounds Palpation: soft Musc Musculoskeletal: No muscle weakness Skin General: no rashes or lesions noted Wounds: no wounds Neuro General: gait normal, normal light touch, pain and propioception Cranial Nerves: CN's II-XI intact bilaterally Extrem General: normal to inspection, full ROM Psych Appearance: well kempt Mental Status: mental status grossly normal Mood: congruent mood Affect: normal affect Speech and Movement: speech and movement normal Attitude: cooperative Thought Process: normal Judgment: judgment good Assessment AND Plan 1. Thyroid dysfunction E07.9 Plan Will check thyroid levels. Discussed treatment with methamezole. Discussed need for follow up labs consistently. Need to find out if a I-123 uptake and scan has been done. oes have large nodule but scan would determine if need for FNA versus referral to surgeon. Call for results in 3-4 days Orders Orders: Plan Detail Other Orders Orders: Coding Level of Care Code Off vis,est,level 3 Diagnoses Thyroid dysfunction E07.9 Time Spent (min) 30 09/27/17 0802 <Electronically signed by Natacha POPE> Date Natacha POPE Cosigner Signature: Date (if applicable) CC: FREE T3 Collected: 09/06/2017 Status: F Source: [place] 4:19 PM [facility] REPOSITORY Order Comment: Comments: [id number] TRAB thyroid receptor antibodies TYPE CODE TESTS RESULT OUT OF RANGE REFERENCE UNITS LAB L501.49138 2.18-3.98 pg/mL High FREE T3 5.4 Performed By: #### L501.69629, L501.9520, L506.0400 #### [facility] [address] [place], [place], [address] THYROID STIM HORMONE Collected: 09/06/2017 Status: F Source: [place] (TSH) 4:19 PM [facility] REPOSITORY Order Comment: Comments: [id number] TRAB thyroid receptor antibodies TYPE CODE TESTS RESULT OUT OF RANGE REFERENCE UNITS LAB L501.9520 0.358-3.74 uIU/mL Low TSH < 0.01 Performed By: #### L501.73247, L501.9520, L506.0400 #### [facility] [address] [place], [place], [address] T4 FREE DIRECT Collected: 09/06/2017 Status: F Source: [place] 4:19 PM [facility] REPOSITORY Order Comment: Comments: [id number] TRAB thyroid receptor antibodies TYPE CODE TESTS RESULT OUT OF REFERENCE UNITS RANGE LAB L506.0400 0.76-1.46 ng/dL High T4 FREE 1.68 DIRECT Performed By: #### L501.58353, L501.9520, L506.0400 #### [facility] [address] [place], [place], [address] MISCELLANEOUS LAB Collected: 09/06/2017 Status: F Source: [place] PROCEDURE 2 4:19 PM [facility] REPOSITORY Order Comment: Comments: [id number] TRAB thyroid receptor antibodies Comments: TRAB thyroid receptor antibodies List Test(s) Ordered by Physician: dilcia TRAB thyroid receptor antibodies TYPE CODE TESTS RESULT OUT OF RANGE REFERENCE UNITS LAB L801.1543 Normal [facility] LAB TEST 2 Result Comment: TEST RESULT LIMITS Thyrotropin Receptor Ab, Serum <0.50 IU/L 0.00 - 1.75 TESTING PERFORMED AT [facility]. ORIGINAL REPORT ON FILE IN LAB CONTAINS ADDITIONAL TEST SITE INFORMATION. Performed By: #### L801.1543 #### [facility] [address] [place], [address] ALLERGIES ALLERGIES DATE TYPE / CODE NAME / CODE REACTION SEVERITY SOURCE 06/26/2018 Drug No Known Unknown [place] Allergy/[id number](S Allergies/F [facility] NOMED CT) [id number][facility] Rep[facility] 09/29/2011 Miscellaneous OTHER OTHER: SEE C [facility] Allergy/[id number](S [place] NOM[address]) Repository NG/[id number](SNOMED OTHER [facility] CT) Health System Repository ENCOUNTERS ENCOUNTERS ADMIT/DISCHARGE ACCOUNT NUMBER ADMITTING ENCOUNTER LOCATION SOURCE CLASS 08/06/2018/08/06/19 [id number] Ambulatory BBuilding:[address] Repository 07/10/2018 [id number] Ambulatory [facility] ding:[place] Repository 07/07/2018/07/09/20 [id number] Ambulatory [address] [place] Repository 06/26/2018/06/26/20 [id number] Ambulatory BMSBuilding: [place] [facility] Repository 06/24/2018 [id number] Ambulatory [facility] ding:LAB Repository 06/19/2018/06/19/20 [id number] Ambulatory BMSBuilding: [place] [facility] Repository 06/06/2018 [id number] Ambulatory [facility] ding:LAB Repository 05/21/2018 [id number] Ambulatory [facility] MEDICAL Repository CENTERBuildi ng:EAST 05/17/2018 [id number] Ambulatory [facility] ding:LAB Repository 05/15/2018/05/15/20 [id number] Ambulatory BMSBuilding: [place] [facility] Repository 04/22/2018 [id number] Ambulatory BMSBuilding: [place] BMS.[facility] Repository 04/03/2018/04/03/20 [id number] Ambulatory [address] ding:[facility] Repository 04/02/2018 [id number] Ambulatory BMSBuilding: [place] BMS.[facility] Repository 03/31/2018/03/31/20 [id number] Emergency BBuilding:ER [address] Repository 03/22/2018/03/22/20 [id number] Ambulatory [address] ding:[facility] Repository 03/18/2018/03/18/20 [id number] Ambulatory BMSBuilding: [place] 18 BMS.[facility] Repository 03/18/2018 [id number] Ambulatory [facility] ding:LAB Repository 02/25/2018 [id number] Ambulatory [facility] ding:LAB Repository 02/25/2018/02/26/20 [id number] Ambulatory BMSBuilding: [place] 18 [facility]MS.[facility] Repository 02/16/2018 [id number] Ambulatory BMSBuilding: [place] BMS.[facility] Repository 02/15/2018 [id number] Ambulatory BMSBuilding: [place] BMS.CF.[facility] Repository 02/15/2018 [id number] Ambulatory BMSBuilding: [place] BMS.formerly [facility] Repository 02/15/2018/02/17/20 [id number] Ambulatory [address] ding:SDCRoom Repository : MS308 02/14/2018 [id number] Ambulatory BMSBuilding: [place] BMS.[facility] Repository 02/06/2018 [id number] [facility]ulatory [facility] ding:LAB Repository 02/05/2018/02/06/20 [id number] Ambulatory BMSBuilding: [place] 18 BMS.[facility] Repository 02/04/2018 [id number] Ambulatory BMSBuilding: Alan BMS.[facility] Repository 01/15/2018 [id number] [facility]ulatory [facility] ding:LAB Repository 12/21/2017/12/22/19 [id number] Ambulatory BMSBuilding: Alan 18 BMS.[facility] Repository 12/10/2017/12/11/19 [id number] Ambulatory BMSBuilding: [place] 18 BMS.[facility] Repository 12/06/2017 [id number] [facility]ulatory [facility] ding:NM Repository 11/06/2017/11/07/19 [id number] Ambulatory RAMONA Ramona[address] ding:[facility] Repository 10/22/2017/10/23/19 [id number] Ambulatory BMSBuilding: [place] 18 BMS.[facility] Repository 10/17/2017/10/18/19 [id number] Ambulatory RAMONA Ramona [address] [place] [address] ding:[facility] Repository 10/16/2017/10/17/19 [id number] Ambulatory RAMONA Ramona [address] [place] [address] ding:[facility] Repository 10/13/2017/10/15/19 [id number] Emergency BBuilding:ER Ramona[address] Repository 10/13/2017/10/14/19 [id number] Emergency BBuilding:ER Ramona 18 [facility] Repository 10/10/2017 [id number] [facility]ulatory [facility] ding:NM Repository 10/02/2017 [id number] Ambulatory [facility] ding:LAB Repository 10/02/2017/10/03/19 [id number] Ambulatory BMSBuilding: Alan 18 BMS.[facility] Repository 09/06/2017 [id number] Ambulatory [facility] ding:LAB Repository 09/06/2017/09/06/19 [id number] Ambulatory BMSBuilding: Alan 18 BMS.[facility] Repository PAYERS PAYERS ENCOUNTER GUARANTOR PAYER SUBSCRIBER SOURCE 08/06/2018 BRIT Keys Primary BRIT Keys [facility] FENCSIKDOB: Insurance:CARESOURCE FENCSIKDOB: [facility] [id number] S MEDICAIDPolicy [id number] Number: [address] [place], [place] [id number] [place] [address] Date:2018-08-06Tel: [phone] [phone] () Name:[address] [address]BO: 07/10/2018 BRIT Keys Primary BRIT Keys [place] [id number] Insurance:CARESOURCEP FENIKDOB: [facility] Number: [id number] Memorial Hospital [address]Hea: [id number] Repository Date:2018-07-10 O () [address]ATTN: [place] [address]DO: 07/10/2018 Secondary NOT GIVENUNK [place] Insurance:SELF PAY [facility] Number: Effective Repository Date:2018-07-10 06/26/2018 BRIT K Primary BRIT Massimo Alan [id number] Insurance:CARESOURCEP FENCSIKDOB: [facility] Number: [id number] Memorial Hospital [address]Exm: [id number] Repository Date:2018-06-19 O ) [address]ATTN: [place] [address]XQ: 06/26/2018 Secondary NOT GIVENUNK Alan Insurance:SELF PAY [facility] Number: Effective Repository Date:2018-06-26 06/24/2018 BRIT K Primary BRIT K [place] [id number] Insurance:CARESOURCEP FENCSIKDOB: [facility] shivani GRANADOS Number: [id number] Memorial Hospital [address]Wns: [id number] Repository Date:2018-06-24P O () [address]ATTN: [place] [address]DS: 06/24/2018 Secondary NOT GIVENUNK [place] Insurance:SELF PAY [facility] Number: Effective Repository Date:2018-06-24 06/19/2018 BRIT K Primary BRIT K [place] [id number] Insurance:CARESOURCEP FENCSIKDOB: [facility] shivani GRANADOS Number: [id number] Memorial Hospital [address]Ihf: [id number] Repository Date:2018-05-15P O () [address]ATTN: [place] [address]HK: 06/19/2018 Secondary NOT GIVENUNK [place] Insurance:SELF PAY [facility] Number: Effective Repository Date:2018-06-19 06/06/2018 BRIT K Primary BRIT K [place] [id number] Insurance:CARESOURCEP FENCSIKDOB: [facility] shivani GRANADOS Number: [id number] Memorial Hospital [address]Lcw: [id number] Repository Date:2018-06-06P O () [address]ATTN: [place] [address]UW: 06/06/2018 Secondary NOT GIVENUNK [place] Insurance:SELF PAY [facility] Number: Effective Repository Date:2018-06-06 05/21/2018 BRIT Primary BRIT [facility] FENCSIKDOB: Insurance:CARESOURCE FENCSIKDOB[facility] S MEDICAIDPolicy [id number] Repository [address] Number: [place], [place] [id number] [address]Iub: (145) Date: [id number] (HP) 05/17/2018 BRIT K Primary BRIT K [place] [id number] Insurance:CARESOURCEP FENCSIKDOB: [facility] shivani GRANADOS Number: [id number] Memorial Hospital [address]Xmz: [id number] Repository Date:2018-05-17P O () [address]ATTN: [place] [address]HH: 05/17/2018 Secondary NOT GIVENUNK [place] Insurance:SELF PAY [facility] Number: Effective Repository Date:2018-05-17 05/15/2018 BRIT K Primary BRIT K [place] [id number] Insurance:CARESOURCEP FENCSIKDOB: [facility] Number: [id number] Memorial Hospital [address]Ycj: [id number] Repository Date:2018-05-01P O () [address]ATTN: [place] [address]GG: 05/15/2018 Secondary NOT GIVENUNK [place] Insurance:SELF PAY [facility] Number: Effective Repository Date:2018-05-14 04/22/2018 BRIT K Primary BRIT K [place] [id number] Insurance:CARESOURCEP FENCSIKDOB: [facility] Number: [id number] Memorial Hospital [address]Sav: [id number] Repository Date:2018-03-18P O () [address]ATTN: [place] [address]VJ: 04/22/2018 Secondary NOT GIVENUNK [place] Insurance:SELF PAY [facility] Number: Effective Repository Date:2018-03-18 04/03/2018 BRIT K Primary BRIT K [facility]: [facility]NA[facility]ITALB: [facility] S MEDICAIDPolicy [id number] Number: [address] [facility] [place] [id number] [place], [place] [address]Jfu: (330) Date:2018-04-03 59359Gll: (HP) [id number] [phone] Name:[address] ()Tel: [phone] [place], [place] [phone] (WP) [address]ES: 04/02/2018 BRIT K Primary BRIT K [place] [id number] Insurance:[facility] FENCSIKDOB: [facility] eric GRANADOS Number: [id number] Memorial Hospital [address]12[address]Abb: [id number] Repository Date:2018-02-25P O () [address]ATTN: [place] [address]TW: 04/02/2018 Secondary NOT GIVENUNK [place] Insurance:SELF PAY [facility] Number: Effective Repository Date:2018-02-25 03/31/2018 BRIT K Primary BRIT K Zapa [facility] HOSPITALCSIKDOB: Insurance:MCLAR[facility] CARO REGIONDOB: [facility] S MEDICAIDPolicy [id number] Number: [address] [place] [id number] [place], [place] [address]Usy: (330) Date:2018-03-31 08541Ugh: (HP) [id number] [phone] Name:[address] ()Tel: [phone] [place], [place] [phone] (WP) [address]TV: 03/22/2018 BRIT K Primary BRIT K Zapa FENCSIKDOB: Insurance[facility] FENCSIKDOB: [facility] S MEDICAIDPolunitypoint health-[facility] bettendorf [id number] Number: [address] [place], [place] [id number] [place], [place] [address]Vit: (330) Date:2018-03-22 66736Bad: (HP) [id number] Name:[address] (HP)Tel: [phone], [place] [phone] () [address]YD: 03/18/2018 BRIT K Primary BRIT K [place] [id number] Insurance:CARESOURCEP FENCSIKDOB: [facility] Number: [id number] Memorial Hospital [address]Qzf: [id number] Repository Date:2018-03-07P O () [address]ATTN: [place] [address]EC: 03/18/2018 Secondary NOT GIVENUNK [place] Insurance:SELF PAY [facility] Number: Effective Repository Date:2018-03-18 03/18/2018 BRIT K Primary BRIT K [place] [id number] Insurance:CARESOURCEP FENCSIKDOB: [facility]OS[facility]ITALkristinunitypoint health-tr[facility]f Number: [id number] Memorial Hospital [address]32Ehf: [id number] Repository Date:2018-03-18P O () [address]ATTN: [place] [address]TY: 03/18/2018 Secondary NOT GIVENUNK [place] Insurance:SELF PAY [facility] Number: Effective Repository Date:2018-03-18 02/25/2018 BRIT K Primary BRIT K [place] [id number] Insurance:CARESOURCEP FENCSIKDOB: [facility] kristin GRANADOSbecki Number: [id number] Memorial Hospital [address]Usy: [id number] Repository Date:2018-02-25P O () [address]ATTN: [place] [address]DA: 02/25/2018 Secondary NOT GIVENUNK [place] Insurance:SELF PAY [facility] Number: Effective Repository Date:2018-02-25 02/25/2018 BRIT K Primary BRIT K [place] [id number] Insurance:CARESOURCEP FENCSIKDOB: [facility] [address] [facility] Number: [id number] Memorial Hospital [address]Tno: [id number] Repository Date:2018-02-19P O () [address]ATTN: [place] [address]PV: 02/25/2018 Secondary NOT GIVENUNK [place] Insurance:SELF PAY [facility] Number: Effective Repository Date:2018-02-25 02/16/2018 BRIT K Primary BRIT K [place] [id number] Insurance:CARESOURCEP FENCSIKDOB: Community [facility] Number: [id number] Memorial Hospital [address]Lfz: [id number] Repository Date:2018-01-09P O () [address]ATTN: [place] [address]DK: 02/16/2018 Secondary NOT GIVENUNK [place] Insurance:SELF PAY [facility] Number: Effective Repository Date:2018-02-16 02/15/2018 BRIT K Primary BRIT K [place] [id number] Insurance:CARESOURCEP FENCSIKDOB: Community [facility] Number: [id number], [place] [id number] Repository [address]Pgw: (330) Date:2018-01-09P O [phone] () [address]ATTN: [place] [address]EP: 02/15/2018 Secondary NOT GIVENUNK [place] Insurance:SELF PAY [facility] Number: Effective Repository Date:2018-02-15 02/15/2018 BRIT K Primary BRIT K [place] [id number] Insurance:CARESOURCEP FENCSIKDOB: [address] [place] Number: [id number] Memorial Hospital [address]Hvx: [id number] Repository Date:2018-01-09P O () [address]ATTN: [place] [address]FC: 02/15/2018 Secondary NOT GIVENUNK [place] Insurance:SELF PAY [facility] Number: Effective Repository Date:2018-02-15 02/15/2018 BRIT K Primary BRIT K [place] [id number] Insurance:CARESOURCEP FENCSIKDOB: Community [address] [facility] Number: [id number], [place] [id number] Repository [address]Fzg: (330) Date:2018-01-09P O [phone] () [address]ATTN: [place] [address]UH: 02/15/2018 Secondary NOT GIVENUNK [place] Insurance:SELF PAY [facility] Number: Effective Repository Date:2018-01-09 02/14/2018 BRIT K Primary BRIT K [place] [id number] Insurance:CARESOURCEP FENCSIKDOB: Community [address] [facility] Number: [id number], [place] [id number] Repository [address]Ted: (330) Date:2018-02-04 O [phone] () [address]ATTN: [place] [address]BW: 02/14/2018 Secondary NOT GIVENUNK [place] Insurance:SELF PAY [facility] Number: Effective Repository Date:2018-02-04 02/06/2018 BRIT K Primary BRIT K [place] [id number] Insurance:CARESOURCEP FENCSIKDOB: Community [address] [facility] Number: [id number], [place] [id number] Repository [address]Npk: (330) Date:2018-02-06P O [phone] (HP) [address]ATTN: [place] [address]AR: 02/06/2018 Secondary NOT GIVENUNK [place] Insurance:SELF PAY [facility] Number: Effective Repository Date:2018-02-06 02/05/2018 BRIT K Primary BRIT K [place] [id number] Insurance:CARESOURCEP FENCSIKDOB: Community [address] [place] Number: [id number], [place] [id number] Repository [address]Rhh: (330) Date:2018-02-04P O [phone] () [address]ATTN: CLAIMS [facility] [place] [address]MO: 02/05/2018 Secondary NOT GIVENUNK [place] Insurance:SELF PAY [facility] Number: Effective Repository Date:2018-02-05 02/04/2018 BRIT K Primary BRIT K [place] [id number] Insurance:CARESOURCEP FENCSIKDOB: Community [address] [place] Number: [id number], [place] [id number] Repository [address]Ejn: (330) Date:2017-12-10P O [phone] () [address]ATTN: [place] [address]BZ: 02/04/2018 Secondary NOT GIVENUNK [place] Insurance:SELF PAY [facility] Number: Effective Repository Date:2017-12-10 01/15/2018 BRIT K Primary BRIT K [place] [id number] Insurance:CARESOURCEP FENCSIKDOB: Community [address] [place] Number: [id number], [place] [id number] Repository [address]Uaw: (330) Date:2018-01-15P O [phone] () [address]ATTN: [place] [address]HD: 01/15/2018 Secondary NOT GIVENUNK [place] Insurance:SELF PAY [facility] Number: Effective Repository Date:2018-01-15 12/21/2017 BRIT K Primary BRIT K [place] [id number] Insurance:CARESOURCEP FENCSIKDOB: Community [address] [place] Number: [id number], [place] [id number] Repository [address]Xks: (330) Date:2017-12-19P O [phone] () [address]ATTN: [place] [address]EM: 12/21/2017 Secondary NOT GIVENUNK [place] Insurance:SELF PAY [facility] Number: Effective Repository Date:2017-12-21 12/10/2017 BRIT K Primary BRIT K [place] [id number] Insurance:CARESOURCEP FENCSIKDOB: [facility] [address] [place] Number: [id number], [place] [id number] Repository [address]Hua: (330) Date:2017-11-28P O [phone] () [address]ATTN: [place] [address]BG: 12/10/2017 Secondary NOT GIVENUNK [place] Insurance:SELF PAY [facility] Number: Effective Repository Date:2017-12-10 12/06/2017 BRIT K Primary BRIT K [place] [id number] Insurance:CARESOURCEP FENCSIKDOB: [facility] [address] [place] Number: [id number], [place] [id number] Repository [address]Ina: (330) Date:2017-10-02P O [phone] () [address]ATTN: [place] [address]KT: 12/06/2017 Secondary NOT GIVENUNK [place] Insurance:SELF PAY [facility] Number: Effective Repository Date:2017-10-02 11/06/2017 BRIT K Primary BRIT K FirstHealthSKDOB: Insurance:CARESOURCE FENCISKDOB: [facility] MEDICAIDPolic [id number] Repository [address] Number: [address] [place], [place] [id number] [place], [place] [address]Rxk: (330) Date:2017-11-06 25818Kwh: () [phone] [phone] Name:[address] Box ()Tel: [phone] [place], [place] [phone] () [address]SJ: 10/22/2017 BRIT K Primary BRIT K [place] [id number] Insurance:CARESOURCEP FENCSIKDOB: Community [address] [place] Number: [id number] [place], [place] [id number] Repository [address]Bsl: (330) Date:2017-10-10 O [phone] () [address]ATTN: [place] [address]YU: 10/22/2017 Secondary NOT GIVENUNK [place] Insurance:SELF PAY [facility] Number: Effective Repository Date:2017-10-22 10/17/2017 BRIT K Primary BRIT K [place] Bukupe [facility] HOSPITALCISKDOB: Insurance:CARESHARP MARY BIRCH HOSPITAL FOR WOMENSKDOB: [facility] MEDICAIDPolicy [id number] Repository [address] Number: [address] [place], [place] [id number] [place], [place] [address]Dwu: (330) Date:2017-10-17 485[address]Nzl: () [id number] [phone] Name:[address] ()Tel: [phone], [place] [phone] () [address]WE: 10/16/2017 BRIT K Primary BRIT K [facility] CenterCISKDOB: Insurance:CARESOURCE FENCISKDOB: [facility] MEDICAIDPolunitypoint health[facility] [id number] Repository [address] Number: [address] [place], [place] [id number] [place] [address]Pvg: (330) Date:2017-10-16 630[address]Kow: () [id number] [phone] Name:[address] Box (HP)Tel: [phone] [place], [place] [phone] (WP) [address]IA: 10/13/2017 BRIT K Primary BRIT K [facility] CenterCISKDOB: Insurance:[facility]IL[facility]ATIONSKB: [facility] MEDICAIDPolicy [id number] Repository [address] Number: [address] [place], [place] [id number] [place], [place] [address]Eqb: (330) Date:2017-06-29 10095Umh: (HP) [id number] [phone] Name:[address] Box (HP)Tel: [phone] [place], [place] [phone] (WP) [address]PF: 10/13/2017 BRIT K Primary BRIT K [facility] HospitalD[facility] Insurance:[facility]ENTERIKD[facility]: [facility] MEDICAIDPolicy [id number] Repository [address] Number: [address] [place], [place] [id number] [place], [place] [address]Dvy: (330) Date:2017-10-13 580[address]Hjm: (HP) [id number] [phone] Name:[address] Box (HP)Tel: [phone] [place], [place] [phone] (WP) [address]FH: 10/10/2017 BRIT K Primary BRIT K [place] [id number] Insurance:VIRTUA VOORHEESIKDOB: [facility] [address] [place] Number: [id number] [place], [place] [id number] Repository [address]Vuo: (330) Date:2017-10-02 O [phone] (HP) [address]ATTN: [place] [address]XX: 10/10/2017 Secondary NOT GIVENUNK [place] Insurance:SELF PAY [facility] Number: Effective Repository Date:2017-10-02 10/02/2017 BRIT K Primary BRIT K [place] [id number] Insurance:CARESOURCEP FENCSIKDOB: Community [address] [place] Number: [id number], [place] [id number] Repository [address]Rie: (330) Date:2017-10-02P O [phone] () [address]ATTN: [place] [address]PV: 10/02/2017 Secondary NOT GIVENUNK [place] Insurance:SELF PAY [facility] Number: Effective Repository Date:2017-10-02 10/02/2017 BRIT K Primary BRIT K Alan [id number] Insurance:CARESOURCEP FENCSIKDOB: [facility] [address] [place] Number: [id number], [place] [id number] Repository [address]Hqh: (330) Date:2017-09-12P O [phone] () [address]ATTN: [place] [address]WK: 10/02/2017 Secondary NOT GIVENUNK Alan Insurance:SELF PAY [facility] Number: Effective Repository Date:2017-09-12 09/06/2017 BRIT K Primary BRIT K Alan [id number] Insurance:CARESOURCEP FENCSIKDOB: [facility] [address] [place] Number: [id number], [place] [id number] Repository [address]Vol: (330) Date:2017-09-06P O [phone] () [address]ATTN: [place] [address]OQ: 09/06/2017 Secondary NOT GIVENUNK [place] Insurance:SELF PAY [facility] Number: Effective Repository Date:2017-09-06 09/06/2017 BRIT K Primary BRIT K [place] [id number] Insurance:CARESOURCEP FENCSIKDOB: [facility] [address] Number: [id number], [place] [id number] Repository [address]Oem: 330) Date:2017-08-28P O [phone] () [address]ATTN: [place] [address]HL: 09/06/2017 Secondary NOT GIVENUNK [place] Insurance:SELF PAY [facility] Number: Effective Repository Date:2017-08-28
== END ==
PROVIDERS: Visit Provider Obstetrics & Gynecology
DX: Z12.4 Encounter for screening for malignant neoplasm of cervix (principal); Z11.3 Encounter for screening for infections with a predominantly sexual mode of transmission
CPT/HCPCS: 36415; 86592; 86703; 86803; 87340; 87491; 87591; 88175; G0145

== ENCOUNTER → 2018-09-19 10:03 | Outpatient (CLI) | payer MEDICAID, SELFPAY ==
[2018-06-26 08:04] VITALS: BMI 23.0
[2018-09-19 11:50] LABS: ALB/GLOB Ratio 0.9 RATIO (0.9-2.4); AST(SGOT) 13 U/L (15-37); Alanine Aminotransfer ALT/SGPT 20 U/L (13-56); Albumin, Serum 3.5 g/dL (3.2-5.0); Alkaline Phosphatase 47 U/L (45-117); Anion Gap 8 (5-15); BUN 15 mg/dL (7-18); BUN/Creat Ratio 19.5 RATIO (10-20); Calcium,Total 9.2 mg/dL (8.5-10.1); Chloride 107 mmol/L (98-107); Creatinine, Serum 0.77 mg/dL (0.55-1.02); EST Glomerular Filtration Rate 96 mL/min (>60); Est Glom Filt Rate - Afr Amer 117 mL/min (>60); Globulin 3.8 g/dL (2.2-4.2); Glucose 108 mg/dL (74-106); Potassium 4.4 mmol/L (3.5-5.1); Protein, Total 7.3 g/dL (6.4-8.2); Sodium Level 141 mmol/L (136-145)
[2018-09-19 11:55] LABS: Free T3 2.3 pg/mL (2.18-3.98); T4 Free Direct 1.14 ng/dL (0.76-1.46)
[2018-09-19 12:16] LABS: Hemoglobin A1c 5.6 % (4.2-6.3)
== END ==
PROVIDERS: Referring Provider Nurse Practitioner; Visit Provider Nurse Practitioner
DX: E05.90 Thyrotoxicosis, unspecified without thyrotoxic crisis or storm (principal); R73.9 Hyperglycemia, unspecified
CPT/HCPCS: 36415; 80053; 83036; 84439; 84443; 84481

== ENCOUNTER → 2018-10-09 08:07 | Outpatient (CLI) | payer MEDICAID, SELFPAY ==
[2018-10-08 13:08] VITALS: BMI 23.0
[2018-10-09 12:12] LABS: Hematocrit 40.8 % (37-47); Hemoglobin 13.2 g/dl (12.0-15.0); Mean Corp Hgb Conc 32.4 g/gl (32-36); Mean Corpuscular Hgb 28.1 pg (27.0-32.0); Mean Corpuscular Volume 86.8 fL (81-99); Mean Platelet Vol. 9.7 fl (6.2-12.0); Platelet Count 235 K/mm3 (150-450); RBC Distribution Width CV 13.3 % (11.6-14.6); RBC Distribution Width SD 42.5 fl (35.1-43.9); White Blood Count 5.4 K/mm3 (4.4-11.0)
[2018-10-09 12:16] LABS: Scan Indicated on CBC? Y/N NO
[2018-10-09 12:20] LABS: Cholesterol 210 mg/dL (200); High Density Lipoprotein 66 mg/dL; Triglycerides 113 mg/dL; Very Low Density Lipoprotein 23 mg/dL (5-40)
[2018-10-09 12:32] LABS: Vitamin D,25 Hydroxy 7.4 ng/mL (29.95-100.01)
== END ==
PROVIDERS: Nurse Practitioner Family; PCP Internal Medicine; Visit Provider Internal Medicine
DX: E55.9 Vitamin D deficiency, unspecified (principal); E78.5 Hyperlipidemia, unspecified; R23.8 Other skin changes
CPT/HCPCS: 36415; 80061; 82306; 85027

== ENCOUNTER → 2018-12-30 | Outpatient (CLI) | payer MEDICAID, SELFPAY ==
[2018-10-08 13:08] VITALS: BMI 23.0
[2018-12-30 12:47] LABS: Vitamin D,25 Hydroxy 85.4 ng/mL (29.95-100.01)
== END | disposition home or self-care (01) ==
LOC: BIMLAB 08:02
PROVIDERS: PCP Internal Medicine; Visit Provider Internal Medicine
DX: E55.9 Vitamin D deficiency, unspecified (principal)
CPT/HCPCS: 36415; 82306

== ENCOUNTER → 2019-07-16 13:49 | Outpatient (CLI) | payer MEDICAID, SELFPAY ==
[2018-10-08 13:08] VITALS: BMI 23.0
[2019-07-21 15:09] LABS: HPV Reflexed? NOT INDICATED
== END ==
PROVIDERS: Visit Provider Obstetrics & Gynecology
DX: Z12.4 Encounter for screening for malignant neoplasm of cervix (principal)
CPT/HCPCS: 88175; G0145

== ENCOUNTER → 2020-01-22 | Outpatient (CLI) | payer MEDICAID, SELFPAY ==
[2018-10-08 13:08] VITALS: BMI 23.0
== END | disposition home or self-care (01) ==
LOC: WOBLAB 13:29
PROVIDERS: Visit Provider Obstetrics & Gynecology
DX: N39.0 Urinary tract infection, site not specified (principal); N92.1 Excessive and frequent menstruation with irregular cycle
CPT/HCPCS: 87086; 87088

== ENCOUNTER 2021-11-09 11:58 | Outpatient (CLI) | payer MEDICAID, SELFPAY ==
[2021-11-10 22:06] LABS: Chlamydia By Nucleic Acid AMP Negative (Negative)
[2021-11-10 22:25] LABS: Gonococcus By Nucleic Acid AMP Negative (Negative)
[2021-11-14 18:17] LABS: HPV APTIMA, High Risk Negative (Negative); HPV Reflexed? YES, CHARGE PATIENT
== END 2021-11-09 23:59 | disposition home or self-care (01) ==
LOC: LABSPEC 12:00
PROVIDERS: Visit Provider Obstetrics & Gynecology
DX: Z12.4 Encounter for screening for malignant neoplasm of cervix (principal)
CPT/HCPCS: 87491; 87591; 87624; 88175; G0145

== ENCOUNTER 2022-10-06 19:53 | Observation (INO) | payer MEDICAID, SELFPAY ==
[2022-10-06] VITALS (8 sets, daily range): BP systolic 110–142; BP diastolic 70–97; PULSE 70–95; RESP 15–18; TEMP 36.8–37.7; O2SAT 95–98; BMI 21.7; BMI 21.9
--- NOTE | 2022-10-06 20:10 | CT_ITS ---
We are attempting to reach an attending provider to discuss findings. An addendum with communication details will be sent when the communication is complete. STUDY: CT HEAD STROKE PROTOCOL W/O CONTRAST INJECTION REASON FOR EXAM: Female, 32 years old. Neuro deficit, acute, stroke suspected RADIATION DOSAGE (If Supplied By Facility): CTDIvol = ( ) mGy, DLP = ( 762.36 ) mGycm TECHNIQUE: Transaxial CT imaging of the brain was performed without administration of intravenous contrast material. Individualized dose optimization techniques were used for this CT. COMPARISON: No relevant priors. FINDINGS: Normal soft tissue structures. Normal calvarium. Normal size ventricles and extra-axial spaces for the patient''s age. Normal white matter tracts of the cerebral hemispheres. Normal basal ganglia and thalami. Normal brainstem. Normal cerebellum. There is no intracranial hemorrhage. There are no findings of an acute ischemic infarction. Normal visualized paranasal sinuses. ASPECT score: 10 CT/STROKE Brain/Head without Cont IMPRESSION: Normal unenhanced CT scan of the brain. AIDOC was utilized to assist in identifying pertinent positive findings in this case. Electronically Signed: Eitan Coffman DO at 20:46 EST Reading Location ID and State: [facility] / [place] Tel [phone], Service support ,
--- NOTE | 2022-10-06 20:11 | CT_ITS ---
We are attempting to reach an attending provider to discuss findings. An addendum with communication details will be sent when the communication is complete. STUDY: CTA HEAD AND NECK WITH CONTRAST REASON FOR EXAM: Female, 32 years old. Neural deficit. Acute stroke suspected RADIATION DOSAGE (If Supplied By Facility): CTDIvol = ( 19.80 ) mGy, DLP = ( 558.85 ) mGycm TECHNIQUE: CT angiography was performed with a multi-detector CT scanner. Data acquisition was obtained from the skull base through the vertex following intravenous administration of 100 mL of Isovue-300. MIP images were reconstructed from the axial data set. Post-processing of the angiographic images was performed, with multiplanar reformation and 3D reconstruction. Individualized dose optimization techniques were used for this CT. COMPARISON: CT of the head, October 06, 2022 FINDINGS: Normal bilateral petrous carotid arteries. Normal right cavernous carotid artery with a normal supraclinoid bifurcation. Normal left cavernous carotid artery with a normal supraclinoid bifurcation. Normal right A1 segments of the anterior cerebral artery. Normal left A1 segments of the anterior cerebral artery. Normal intact anterior communicating artery (ACOM). Normal bilateral A2 segments of the anterior cerebral arteries. Normal right M1 and M2 segments of the middle cerebral arteries, with a normal M1 bifurcation. Normal left M1 and M2 segments of the middle cerebral arteries, with a normal M1 bifurcation. Normal right posterior communicating artery (PCOM). Normal left posterior communicating artery (PCOM). Normal bilateral vertebral arteries. Normal basilar artery with a normal basilar bifurcation. The visualized bilateral superior cerebellar (SCA) arteries are normal. Normal bilateral P1, P2 and visualized P3 segments of the posterior cerebral arteries. There is no demonstrated aneurysm of the mo[place] of [place]. There is no demonstrated abnormality of the visualized brain. AORTIC ARCH: Normal visualized aortic arch. Normal origins of the brachiocephalic, left common carotid, and left subclavian arteries. RIGHT CAROTID ARTERIES: Normal right common carotid artery (CCA). Normal right common carotid bulb. Normal origin of the right internal carotid (ICA) artery without a hemodynamically significant stenosis. Normal visualized cervical portion of the right internal carotid artery. Normal origin of the right external carotid artery (ECA). LEFT CAROTID ARTERIES: Normal left common carotid artery (CCA). Normal left common carotid bulb. Normal origin of the left internal carotid (ICA) artery without a hemodynamically significant stenosis. Normal visualized cervical portion of the left internal carotid artery. Normal origin of the left external carotid artery (ECA). VERTEBRAL ARTERIES: Normal bilateral vertebral arteries. CT/STROKE CTA Head AND Neck W/Con IMPRESSION: Normal CTA Head and neck with contrast. Electronically Signed: Eitan Coffman DO at 21:02 [facility] ,
--- NOTE | 2022-10-06 20:12 | TELEMED_ITS ---
[facility] Telemed has confirmed receipt of a request for visit. This document confirms receipt of the order initiating the consult. To find the results of the consultation, please view the patient's reports for the scanned Telemed Consult.
--- NOTE | 2022-10-06 20:14 | EX.ED.DYSGE1 ---
HPI History of Present Illness Chief Complaint: Numb/Ting Informant: patient Narrative Narrative: Patient had an episode of little over an hour ago where she developed left-sided weakness. She states it started with some tingling in her left foot but progressed up to the entire left side of her body. She felt weak. It ended up that her arm ended up getting more affected and lasted longer. She had no pain. She also had trouble speaking. It sounds like this was more dysarthria rather than expressive or receptive aphasia. The symptoms lasted approximately 30 minutes and have now completely resolved. She has never had these symptoms before. She was feeling fine prior to this. However, she does have some risk for strokes. She is on control, she has type 2 diabetes for 6 years and is on metformin, she has high cholesterol and is on rosuvastatin. She is also on Synthroid. Patient also does have a history of migraines. But she has never had a complex or ocular migraine. She is also not having any headache. She was last well about an hour to hour and 15 minutes ago but has been well again over the last 30 minutes and is now back to normal when I see her. She did not have any neck chest or back pain. No palpitations. No falls or trauma. [facility] Medical History (Updated 10/06/22 @ 22:[address] Barron Downing MD) Chronic migraine Diabetes type 2, controlled Former tobacco use Graves disease History of alcohol abuse Hyperlipidemia Hyperthyroidism Hypothyroidism Mitral valve prolapse Polycystic ovarian disease Sleep apnea Vitamin deficiency Home Medications pen needle, diabetic 32 gauge x 5/32 (BD Ultra-Fine Angie Pen Needle) #100 ea 03/12/18 [Rx Last Taken Unknown] Freestyle Lancing device See Rx Instructions .Route .COMPLEX ##1 08/29/18 [Rx Last Taken Unknown] lancets 28 gauge (FreeStyle Lancets) #60 ea 08/29/18 [Rx Last Taken Unknown] desogestrel 0.15 mg-ethinyl estradiol 0.03 mg tablet (Enskyce) 1 tab PO DAILY 10/08/18 [History Last Taken Unknown] liothyronine 5 mcg tablet 5 mcg PO DAILY #30 tabs 12/20/18 [Rx Last Taken Unknown] FreeStyle Lite Strips (blood sugar diagnostic) #120 ea 12/24/18 [Rx Last Taken Unknown] cholecalciferol (vitamin D3) 1,250 mcg (50,000 unit) capsule See Rx Instructions .Route .COMPLEX #14 caps 01/21/19 [Rx Last Taken Unknown] levothyroxine 100 mcg tablet 112 mcg PO DAILY 10/06/22 [History Last Taken Unknown] metformin 500 mg tablet 500 mg PO BID 10/06/22 [History Last Taken Unknown] rosuvastatin 10 mg tablet 10 mg PO DAILY 10/06/22 [History Last Taken Unknown] Allergy/AdvReac Type Severity Reaction Status Date / Time No Known Allergies Allergy Verified 10/06/22 19:57 Family History Father Hypertension High cholesterol Mother Alcoholism Grandmother Arthritis Grandfather Cancer Surgical History Hx of thyroidectomy Social History Smoking Status: Former smoker quit date: 07/30/16 Tobacco: How many years used: 9 second hand exposure: No alcohol intake: former details: Former heavy drinker substance use type: does not use what type of physical activity do you participate in: walking, running, bicycling and weight training frequency: 3-4 times per week seatbelt use: always ROS ROS ED Constitutional Constitutional ED: Denies fever(s) or subjective Eyes Eyes: Denies blurry vision or change in vision ENT ENT ED: Denies rhinorrhea or sore throat Cardiovascular Cardiovascular: Denies chest pain, palpitations or racing heartbeat Respiratory/Chest Respiratory/Chest: Denies cough or dyspnea Gastrointestinal Gastrointestinal: Denies nausea or vomiting Genitourinary Genitourinary ED: Denies dysuria Musculoskeletal Musculoskeletal: Denies arthralgias, back pain, myalgias or neck pain Integumentary Denies rash Neurologic Neurologic: Reports paresthesias, weakness and other Details: See history of present illness. ; Denies headache(s) Endocrine Endocrinology: Denies polydipsia or polyuria Hematologic/Lymphatic Hematologic/Lymphatic: Denies easy bleeding or easy bruising Allergic/Immunologic Allergic/Immunologic ED: Denies urticaria EXAM Physical Exam Narrative Exam Narrative: Patient is awake alert in no acute distress. She carries on normal conversation. HEENT shows moist mucous membrane. No asymmetry. No numbness. Eyes show normal range of motion. No subconjunctival hemorrhage. Neck shows no carotid bruit. No pain with motion. Lungs are clear bilaterally and patient is not hypoxic. Saturations are 98% on room air. Heart is regular. Rate about 90. I hear no murmur gallop or rub. Peripheral pulses are equal and normal and there is no peripheral mottling. Abdomen is soft nontender. shows no CVA or suprapubic tenderness. Extremities show no pallor or mottling swelling tenderness or asymmetry. Neurologic: Patient has an NIH of 0. There is no visual field deficit. Her voice is clear. No sign of weakness. Sensation is normal in all extremities. I find no deficit at this time and she feels not at this time. Const Vital Signs: 10/06/22 19:54 10/06/22 20:07 10/06/22 20:10 Temperature 98.3 F 98.3 F Temperature Source Temporal Temporal Pulse Rate 95 85 Respiratory Rate 18 16 Respiratory Effort Normal Non-Labored Respiratory Pattern Normal Blood Pressure 142/97 H 124/85 H Blood Pressure Mean 112 98 Pulse Ox 98 97 Oxygen Delivery Method Room Air Room Air 10/06/22 20:40 10/06/22 21:10 Temperature Temperature Source Pulse Rate 77 70 Respiratory Rate 18 15 Respiratory Effort Respiratory Pattern Blood Pressure 124/87 H 110/78 Blood Pressure Mean 99 88 Pulse Ox 98 97 Oxygen Delivery Method Room Air Room Air MDM MDM MDM Narrative Medical decision making narrative: My independent interpretation the patient's CT of the head without contrast shows no acute process. Final reading was similar. Radiology is reading of the CT angiogram showed no LVO. CBC was oh normal. Relation studies were normal. Electrolytes show no marked abnormalities. Troponin was negative. Cesium was normal. was negative. Alcohol was negative. I discussed the case with both the radiologist regarding both of her CTs. I also discussed the case with the SOC neurologist. He agrees that this was likely complex migraine. But he does recommend admission for work-up Recommended Plavix and aspirin. Patient really did not want to start meds but did except aspirin. The case was discussed with the hospitalist and the patient will be brought in the hospital for further work-up Lab Data Attestation: I reviewed the patient's lab results. Labs: Laboratory Results - last 24 hr 10/06/22 10/06/22 10/06/22 20:12 20:18 20:18 WBC 4.5 RBC 4.55 Hgb 13.5 Hct 40.0 MCV 87.9 MCH 29.7 MCHC 33.8 RDW Std Deviation 39.2 RDW Coeff of [place] 12.2 Plt Count 193 MPV 9.2 Immature Gran % (Auto) 0.200 Neut % (Auto) 46.2 L Lymph % (Auto) 41.6 H [place] % (Auto) 9.6 Eos % (Auto) 2.0 Baso % (Auto) 0.4 Absolute Neuts (auto) 2.1 Absolute Lymphs (auto) 1.87 Nucleated RBC % 0 PT 12.2 INR 0.9 APTT 26.0 Sodium Potassium Chloride Carbon Dioxide Anion Gap BUN Creatinine Estim Creat Clear Calc Est GFR (MDRD) Af Amer Est GFR (MDRD) Non-Af BUN/Creatinine Ratio Glucose Calcium Magnesium Troponin I High Sens Serum , Qual Ethyl Alcohol POC Glucose 189 H 10/06/22 10/06/22 10/06/22 20:18 20:18 20:18 WBC RBC Hgb Hct MCV MCH MCHC RDW Std Deviation RDW Coeff of Jose Antonio Plt Count MPV Immature Gran % (Auto) Neut % (Auto) Lymph % (Auto) [place] % (Auto) Eos % (Auto) Baso % (Auto) Absolute Neuts (auto) Absolute Lymphs (auto) Nucleated RBC % PT INR APTT Sodium 135 L Potassium 3.8 Chloride 99 Carbon Dioxide 29.0 Anion Gap 7 BUN 20 H Creatinine 0.84 Estim Creat Clear Calc 81.01 Est GFR (MDRD) Af Amer 103 Est GFR (MDRD) Non-Af 85 BUN/Creatinine Ratio 23.9 H Glucose 193 H Calcium 10.3 H Magnesium 1.6 Troponin I High Sens < 3 L Serum , Qual NEGATIVE Ethyl Alcohol POC Glucose 10/06/22 20:18 WBC RBC Hgb Hct MCV MCH MCHC RDW Std Deviation RDW Coeff of Jose Antonio Plt Count MPV Immature Gran % (Auto) Neut % (Auto) Lymph % (Auto) [place] % (Auto) Eos % (Auto) Baso % (Auto) Absolute Neuts (auto) Absolute Lymphs (auto) Nucleated RBC % PT INR APTT Sodium Potassium Chloride Carbon Dioxide Anion Gap BUN Creatinine Estim Creat Clear Calc Est GFR (MDRD) Af Amer Est GFR (MDRD) Non-Af BUN/Creatinine Ratio Glucose Calcium Magnesium Troponin I High Sens Serum , Qual Ethyl Alcohol < 3.0 POC Glucose Radiography Diagnostic Testing: Clinical Impression(s) from Imaging Studies Brain CT 10/06/22 20:10 IMPRESSION: Normal unenhanced CT scan of the brain. [employer] was utilized to assist in identifying pertinent positive findings in this case. Electronically Signed: Eitan Coffman DO at 20:46 EST Reading Location ID and State: [facility] [employer] / [place] Tel [phone], Service support , ADDENDUM: 10/06/222052 IMPRESSION: Normal unenhanced CT scan of the brain. A[employer]OC was utilized to assist in identifying pertinent positive findings in this case. N.B. : The above Results were Read Back by Eitan Coffman DO to Barron Downing MD, and understanding confirmed on 10/06/2022 20:46:26 (ET). Electronically Signed: Eitan Coffman DO at 20:46 EST Reading Location ID and State: [facility] / [place] Tel [phone], Service support , Head/Neck CTA 10/06/22 20:11 IMPRESSION: Normal CTA Head and neck with contrast. Electronically Signed: Eitan Coffman DO at 21:02 EST Reading Location ID and State: [facility] / [place] Tel [phone], Service support , ADDENDUM: 10/06/222111 IMPRESSION: Normal CTA Head and neck with contrast. N.B. : The above Results were Read Back by Eitan Coffman DO to Barron Downing MD, and understanding confirmed on 10/06/2022 21:05:39 (ET). Electronically Signed: Eitan Coffman DO at 21:02 EST Reading Location ID and State: [facility] / [place] Tel [phone], Service support , Chest X-Ray 10/06/22 20:31 IMPRESSION: Normal x-ray examination of the chest. Electronically Signed: Eitan Coffman DO at 21:03 EST Reading Location ID and State: [facility] / [place] Tel [phone], Service support , EKG Initial EKG: Comments: My independent interpretation of patient's EKG done for work-up of TIA symptoms shows a normal sinus rhythm with mild sinus arrhythmia. No ventricular ectopy. No acute ST elevation or depression. MA interval, QRS duration and QTc are normal. Management Discussion w/another healthcare provider: Hospitalist, [employer] and Radiologist Discharge Plan Dx/Rx/DC Orders Clinical Impression: Neurological deficit, transient, Diabetes mellitus, Hx of hypercholesterolemia, History of migraine Disposition Disposition: Acute Care Hospital [facility] Discharge Date/Time: 10/06/22 22:17
--- NOTE | 2022-10-06 20:25 | ED.RN ---
did not call stroke alert at this time. SOC consult.
[2022-10-06 20:31] LABS: Absolute Lymphocyte Count 1.87 X10^3/uL (0.83-4.51); Absolute Neutrophil Count 2.1 X10^3/uL (2.0-7.7); Basophil# 0.02 X10^3/uL; Basophil% 0.4 % (0-1); Eosinophil# 0.09 X10^3/uL; Hemoglobin 13.5 g/dL (12.0-15.0); Lymphocyte # 1.87 X10^3/ul (0.83-4.51); Lymphocyte % 41.6 % (19-41); Mean Corp Hgb Conc 33.8 g/dL (32-36); Mean Corpuscular Hgb 29.7 pg (27.0-32.0); Mean Corpuscular Volume 87.9 fL (81-99); Mean Platelet Vol. 9.2 fl (6.2-12.0); Monocyte# 0.43 X10^3/uL; Monocyte% 9.6 % (0-10); NRBC Flagged by Analyzer 0 % (0-5); Neutrophil # 2.08 X10^3/uL (2.7-7.7); Neutrophil % 46.2 % (47-70); Platelet Count 193 K/mm3 (150-450); RBC Distribution Width CV 12.2 % (11.6-14.6); RBC Distribution Width SD 39.2 fl (35.1-43.9); Red Blood Count 4.55 M/mm3 (4.2-5.4); White Blood Count 4.5 K/mm3 (4.4-11.0)
--- NOTE | 2022-10-06 20:31 | RAD_ITS ---
STUDY: X-RAY CHEST REASON FOR EXAM: Female, 32 years old. No deficit. Acute stroke suspected. Left foot tingling gradually extended over her entire left side with difficulty speaking. Symptoms lasted 30 minutes and are now resolved. TECHNIQUE: Single AP portable view of the chest. COMPARISON: None. FINDINGS: The lungs are clear and expanded. There is no demonstrated pleural abnormality. Normal size heart. Normal mediastinum and sneha. Normal visualized pulmonary arteries. Normal visualized aortic arch and descending thoracic aorta. Normal visualized thoracic spine. Normal visualized ribs, clavicles, and shoulders. There is no demonstrated abnormality of the visualized soft tissue structures of the upper abdomen. RAD/Chest 1 View IMPRESSION: Normal x-ray examination of the chest. Electronically Signed: Eitan Coffman DO at 21:03 [facility] ,
[2022-10-06 20:36] LABS: Bedside Glucose 189 mg/dL (74-106)
[2022-10-06 20:42] LABS: International Normalized Ratio 0.9; Prothrombin Time (Protime)PT. 12.2 SECONDS (11.7-14.9)
[2022-10-06 20:54] LABS: Internal QC Validated? YES +Cl - CLEAR BKGD; Pregnancy, Serum, hCG Quali. NEGATIVE Negative
[2022-10-06 21:03] LABS: Anion Gap 7 (5-15); BUN 20 mg/dL (7-18); BUN/Creat Ratio 23.9 RATIO (10-20); Calcium,Total 10.3 mg/dL (8.5-10.1); Chloride 99 mmol/L (98-107); Creatinine, Serum 0.84 mg/dL (0.55-1.02); EST Glomerular Filtration Rate 85 mL/min (>60); Est Glom Filt Rate - Afr Amer 103 mL/min (>60); Estimated Creatinine Clearance 81.01 ml/min; Glucose 193 mg/dL (74-106); Potassium 3.8 mmol/L (3.5-5.1); Sodium Level 135 mmol/L (136-145); Troponin-I HS < 3 pg/mL (3.0-54.0)
--- NOTE | 2022-10-06 21:26 | HP.PCM_ITS ---
HPI - General General Date of Admission: 10/06/22 Date of Service: 10/06/22 Chief Complaint: L sided weakness/paresthesias, dysarthria. HPI Narrative The patient is a 32 y/o F w/ PMHx: Diabetes mellitus type II, Graves disease s/p thyroidectomy, MARIAH, PCOS, HLD, Hypothyroidism, Former tobacco use, Former EtOH abuse, Chronic migraines who presents to the [facility] ED on 10/06/22 with history of onset approximately 1 hour prior to ED presentation left-sided weakness although it initially started with some mild tingling in the left foot but progressed up the entire left side of the body distally progressing up work with eventual upper extremity involvement as well which is more profound with also trouble speaking more consistent with dysarthria lasting approximately 30 minutes with complete resolution upon ED arrival with no history of symptoms like this prior with no headache associated but she does have an underlying history as noted of migraines. She has never had any prior history of complex or ocular migraines. She does report taking control. In the ED NIHSS 0 with no recurrence of symptoms. She was when it started out with her friends eating dinner for her 32th birthday. Work-up in the ED included T98.3, heart 85, BP 124/85, respiratory rate 16, 97% on room air, CBC with WBC 4.5, hemoglobin 13.5, platelet 193 without marked shift, coag unremarkable, BMP with Na 135, BUN/Cr 20/0.84, glucose 193, Ca 10.3, trop < 3, serum test negative, chest x- ray with no acute cardiopulmonary findings, CT brain with no acute intracranial findings, CTA head and neck with no acute findings, EKG with SR without acute evidence of ischemia. ED physician consulted Tele Stroke physician and awaiting their evaluation and recommendations. [facility] Medical History Chronic migraine Diabetes type 2, controlled Former tobacco use Graves disease History of alcohol abuse Hyperlipidemia Hyperthyroidism Hypothyroidism Mitral valve prolapse Polycystic ovarian disease Sleep apnea Vitamin deficiency Home Medications pen needle, diabetic 32 gauge x / (BD Ultra-Fine Angie Pen Needle) #100 ea 03/12/18 [Rx Last Taken Unknown] Freestyle Lancing device See Rx Instructions .Route .COMPLEX ##1 08/29/18 [Rx Last Taken Unknown] lancets 28 gauge (FreeStyle Lancets) #60 ea 08/29/18 [Rx Last Taken Unknown] desogestrel 0.15 mg-ethinyl estradiol 0.03 mg tablet (Enskyce) 1 tab PO DAILY 10/08/18 [History Last Taken Unknown] liothyronine 5 mcg tablet 5 mcg PO DAILY #30 tabs 12/20/18 [Rx Last Taken Unknown] FreeStyle Lite Strips (blood sugar diagnostic) #120 ea 12/24/18 [Rx Last Taken Unknown] cholecalciferol (vitamin D3) 1,250 mcg (50,000 unit) capsule See Rx Instructions .Route .COMPLEX #14 caps 01/21/19 [Rx Last Taken Unknown] levothyroxine 100 mcg tablet 112 mcg PO DAILY 10/06/22 [History Last Taken Unknown] metformin 500 mg tablet 500 mg PO BID 10/06/22 [History Last Taken Unknown] rosuvastatin 10 mg tablet 10 mg PO DAILY 10/06/22 [History Last Taken Unknown] Allergy/AdvReac Type Severity Reaction Status Date / Time No Known Allergies Allergy Verified 10/06/22 19:57 Family History Father Hypertension High cholesterol Mother Alcoholism Grandmother Arthritis Grandfather Cancer Surgical History Hx of thyroidectomy Social History (Updated 10/06/22 @ 22:[address] Danni Kearns MD) household members: significant other Smoking Status: Former smoker quit date: 07/30/16 Tobacco: How many years used: 9 how long ago did patient quit smoking: Quit 6-7 years prior, smoked 1 ppd since teen until quit. second hand exposure: No alcohol intake: former details: Former heavy drinker, sober 6-7 years. substance use type: does not use what type of physical activity do you participate in: walking, running, bicycling and weight training frequency: 3-4 times per week seatbelt use: always ROS ROS Narrative Admission Review of Systems: CONSTITUTIONAL: No weight loss, fever, chills, + weakness or fatigue. HEENT: Eyes: No visual loss, blurred vision, double vision or yellow sclerae. Ears, Nose, Throat: No hearing loss, sneezing, congestion, runny nose or sore throat. SKIN: No rash or itching, lesions, wounds. CARDIOVASCULAR: No chest pain, chest pressure or chest discomfort, palpitations, edema, orthopnea, syncopal events. RESPIRATORY: No shortness of breath, cough or sputum, wheezing, hemoptysis. GASTROINTESTINAL: No anorexia, nausea, vomiting or diarrhea, abdominal pain, melena, BRBPR. GENITOURINARY: No dysuria, frequency, urgency or retention. NEUROLOGICAL: + Left-sided paresthesias and focal weakness, history of migraines but currently no recent headache or migraine during this event, altered speech, no dizziness, syncope, change in bowel or bladder control, seizure. MUSCULOSKELETAL: No muscle, back pain, joint pain or stiffness. HEMATOLOGIC: No anemia, bleeding or bruising. LYMPHATICS: No enlarged nodes. No history of splenectomy. PSYCHIATRIC: No history of depression or anxiety. ENDOCRINOLOGIC: No reports of sweating, cold or heat intolerance. No polyuria or polydipsia. ALLERGIES: No history of asthma, hives, eczema or rhinitis. Vital Signs Vital Signs Vital Signs: 10/06/22 19:54 10/06/22 20:07 10/06/22 20:10 Temperature 98.3 F 98.3 F Temperature Source Temporal Temporal Pulse Rate 95 85 Respiratory Rate 18 16 Respiratory Effort Normal Non-Labored Respiratory Pattern Normal Blood Pressure 142/97 H 124/85 H Blood Pressure Mean 112 98 Pulse Ox 98 97 Oxygen Delivery Method Room Air Room Air 10/06/22 20:40 10/06/22 21:10 Temperature Temperature Source Pulse Rate 77 70 Respiratory Rate 18 15 Respiratory Effort Respiratory Pattern Blood Pressure 124/87 H 110/78 Blood Pressure Mean 99 88 Pulse Ox 98 97 Oxygen Delivery Method Room Air Room Air Weight Weight: 123 lb Body Mass Index (BMI) 21.7 Physical Exam Narrative Physical Examination: General: Awake, alert, oriented x 3 and cooperative, seated upright in bed in no apparent distress, no evidence of any ongoing dysarthria. Skin: Normal color, normal turgor, no icterus, no cyanosis. HEENT: AT/NC, EOMI, PERRLA, MMM, no carotid bruits or JVD noted. Lungs: CTA bilaterally, moderate effort, no rales, ronchi or wheezing. Heart: Regular rate and rhythm; no gallop, rub audible. Abdomen: Soft, NTTP, ND, normal BS, no HSM. Extremities: No cyanosis, clubbing, or edema. Neurological: Patient awake, alert, oriented x 3, cognitive function intact; pupils equally reactive to light and accommodation, cranial nerves II-XII grossly normal, moving all 4 extremities, no focal deficits, strength preserved, sensation appropriate, finger-nose and [id number]-avrb intact, equivocal Babinski, no evidence of any ongoing or persistent dysarthria or aphasia. Psychiatric: Affect appears normal, no acute evidence of depressive or anxiety feelings. Results Lab / Micro Data Result Diagrams: 10/06/22 20:18 10/06/22 20:18 Labs: Laboratory Results - last 24 hr 10/06/22 20:12: POC Glucose 189 H 10/06/22 20:18: WBC 4.5, RBC 4.55, Hgb 13.5, Hct 40.0, MCV 87.9, MCH 29.7, MCHC 33.8, RDW Std Deviation 39.2, RDW Coeff of Jose Antonio 12.2, Plt Count 193, MPV 9.2, Immature Gran % (Auto) 0.200, Neut % (Auto) 46.2 L, Lymph % (Auto) 41.6 H, Medina % (Auto) 9.6, Eos % (Auto) 2.0, Baso % (Auto) 0.4, Absolute Neuts (auto) 2.1, Absolute Lymphs (auto) 1.87, Nucleated RBC % 0 10/06/22 20:18: PT 12.2, INR 0.9, APTT 26.0 10/06/22 20:18: Sodium 135 L, Potassium 3.8, Chloride 99, Carbon Dioxide 29.0, Anion Gap 7, BUN 20 H, Creatinine 0.84, Estim Creat Clear Calc 81.01, Est GFR (MDRD) Af Amer 103, Est GFR (MDRD) Non-Af 85, BUN/Creatinine Ratio 23.9 H, Glucose 193 H, Calcium 10.3 H, Troponin I High Sens < 3 L 10/06/22 20:18: Serum , Qual NEGATIVE Radiology Impression Brain CT 10/06/22 20:10 IMPRESSION: Normal unenhanced CT scan of the brain. AIDOC was utilized to assist in identifying pertinent positive findings in this case. Electronically Signed: Eitan Coffman DO at 20:46 EST , ADDENDUM: 10/06/222052 IMPRESSION: Normal unenhanced CT scan of the brain. AIDOC was utilized to assist in identifying pertinent positive findings in this case. N.B. : The above Results were Read Back by Eitan Coffman DO to Barron Downing MD, and understanding confirmed on 10/06/2022 20:46:26 (ET). Electronically Signed: Eitan Coffman DO at 20:46 EST , Head/Neck CTA 10/06/22 20:11 IMPRESSION: Normal CTA Head and neck with contrast. Electronically Signed: Eitan Coffman DO at 21:02 EST Reading Location ID and State: [facility] / [place] Tel [phone], Service support , ADDENDUM: 10/06/222111 IMPRESSION: Normal CTA Head and neck with contrast. N.B. : The above Results were Read Back by Eitan Coffman DO to Barron Downing MD, and understanding confirmed on 10/06/2022 21:05:39 (ET). Electronically Signed: Eitan Coffman DO at 21:02 EST Reading Location ID and State: [employer] / [employer] Tel [phone], Service support , Chest X-Ray 10/06/22 20:31 IMPRESSION: Normal x-ray examination of the chest. Electronically Signed: Eitan Coffman DO at 21:03 EST Reading Location ID and State: [id number] / [employer] Tel [phone], Service support , Assessment & Plan Assessment/Plan (1) Neurological deficit, transient: PLAN: Plan The patient is a 32 y/o F w/ PMHx: Diabetes mellitus type II, Graves disease s/p thyroidectomy, MARIAH, PCOS, HLD, Hypothyroidism, Former tobacco use, Former EtOH abuse, Chronic migraines who presents to the [facility] ED on 10/06/22 with history of onset approximately 1 hour prior to ED presentation left-sided weakness although it initially started with some mild tingling in the left foot but progressed up the entire left side of the body distally progressing up work with eventual upper extremity involvement as well which is more profound with also trouble speaking more consistent with dysarthria lasting approximately 30 minutes with complete resolution upon ED arrival with no history of symptoms like this prior with no headache associated but she does have an underlying history as noted of migraines. #1. Left-sided hemiplegia and paresthesias as well as dysarthria, transient concerning for TIA/CVA versus possible complex migraine with history of migraines: Will admit to PCU, will obtain MRI Brain, ECHO, PT/OT/Speech/Nutrition evaluation per protocol. Will allow permissive HTN although of note patient with no hypertensive history and BP normal range currently, maintain on aspirin, continue home statin w/ AM FLP with adjustments as needed, fall precautions, magnesium/TSH/hemoglobin A1c/UDS/EtOH level requested. If MRI is negative certainly given migraine history could be a complex migraine although she had no headache associated. Would certainly have a low threshold to reinvolve neurology once further imaging and work-up was obtained if appropriate. We will also hold control pending further work- up. Will also await Teleneurology input/recommendations from ED evaluation. #2. Hypothyroidism with history of Graves' disease: Status post prior thyroidectomy, we will continue patient home levothyroxine regimen, TSH and free T4 requested. #3. Hyperlipidemia: We will continue patient on statin therapy, FLP in am #4. Diabetes mellitus type II: Hold oral home regimen, continue home insulin regimen, ADA diet, accu checks w/ ISS, hemoglobin A1c requested, nutrition consultation for education and teaching given acute presentation. #5. Former tobacco use: Encourage continued tobacco cessation. EtOH level pending. #6. Former alcohol abuse: Encouraged continued sobriety. #7. MARIAH: CPAP nightly. #8. DVT prophylaxis: Lovenox. #9. CODE STATUS: Full code. Admission Evaluation Time spent evaluating chart, patient history, patient evaluation, care planning and discussion with specialists: 55 minutes. Charges/Coding Visit Charges Inpatient E&M: 40379 Init Hosp L2
[2022-10-06 21:42] LABS: Magnesium 1.6 mg/dL (1.6-2.6)
[2022-10-06 21:44] LABS: Alcohol, Blood (Medical)-Serum < 3.0 mg/dL
--- NOTE | 2022-10-06 22:39 | ECHOD_ITS ---
Reason For Study: CVA Procedure This was a 2D Doppler, Color Flow transthoracic echocardiogram. Exam performed portable in patient room. Left Ventricle Normal size and thickness. The left ventricular ejection fraction is 55 %. Normal diastololic function. Right Ventricle Normal right ventricle. Atria Normal left atrium. Normal right atrium. Bubble contrast study is positive for PFO. Mitral Valve Trivial mitral valve insufficiency. Tricuspid Valve Mild tricuspid valve insufficiency. Normal pulmonary artery pressure. Aortic Valve Normal aortic valve. Pulmonic Valve The pulmonic valve is not well visualized. Great Vessels Normal sized aortic root. Pericardium/Pleural No pericardial effusion. Medication Performed a rapid injection of agitated mix of 9 cc saline and 1cc air to assess for atrial septal defect. MMode/2D Measurements & Calculations LVIDd: 4.6 cm IVSd: 0.72 cm Ao root diam: 2.5 cm LVIDs: 2.9 cm LVPWd: 0.74 cm RVDd: 2.4 cm FS: 37.0 % LAV(MOD-bp): 20.1 ml LVAd ap4: 17.8 cm2 SV(MOD-sp4): 22.9 ml LAV(MOD-bp) Indexed: 12.8 ml/m2 LVLd ap4: 6.9 cm LAV(MOD-sp2): 27.4 ml EDV(MOD-sp4): 39.3 ml LAV(MOD-sp4): 13.9 ml EDV(sp4-el): 39.1 ml LVAs ap4: 10.6 cm2 LVLs ap4: 5.7 cm ESV(MOD-sp4): 16.4 ml ESV(sp4-el): 16.6 ml EF(MOD-sp4): 58.2 % EF(sp4-el): 57.6 % SV(sp4-el): 22.5 ml LA A4 area: 8.7 cm2 LA dimension(2D): 2.8 cm RA A4 area: 5.8 cm2 Time Measurements MV dec time: 0.18 sec Doppler Measurements & Calculations MV E max angel: 83.4 cm/sec Lat Peak E' Angel: 16.0 cm/sec Med Peak E' Angel: 12.5 cm/sec MV A max angel: 58.0 cm/sec E/E' lat: 5.2 E/E' med: 6.7 MV E/A: 1.4 MV dec slope: 470.3 cm/sec2 Ao V2 max: 115.2 cm/sec LV V1 max: 99.0 cm/sec Ao max P.3 mmHg LV V1 max P.9 mmHg Ao V2 mean: 92.6 cm/sec Ao mean P.6 mmHg Ao V2 VTI: 24.0 cm PA V2 max: 105.2 cm/sec TR max angel: 160.6 cm/sec TR max P.3 mmHg ECHO/Echo Complete Interpretation Summary The left ventricular ejection fraction is 55 %. Bubble contrast study is positive for PFO. Mild tricuspid valve insufficiency. Ordering Physician: Danni Kearns Referring Physician: Angel Hernandez Performed By: Cathleen Aj, BRADFORD, RVT
[2022-10-06] MEDS: Aspirin 325 MG Tablet PO (23:58)
[2022-10-07 00:29] VITALS: BMI 21.9
[2022-10-07 02:00] VITALS: O2SAT 98
[2022-10-07 02:40] VITALS: BP 110/81; PULSE 66; RESP 16; TEMP 36.8; O2SAT 98
[2022-10-07 06:00] VITALS: BP 101/72; PULSE 78; RESP 14; TEMP 36.7; O2SAT 100; BMI 21.5
[2022-10-07] MEDS: Levothyroxine 112 MCG Tablet PO (06:07)
[2022-10-07] MEDS: Liothyronine 5 MCG Tablet PO (06:07)
[2022-10-07 07:10] LABS: Bedside Glucose 137 mg/dL (74-106)
[2022-10-07 07:16] LABS: Absolute Lymphocyte Count 1.73 X10^3/uL (0.83-4.51); Absolute Neutrophil Count 1.6 X10^3/uL (2.0-7.7); Basophil# 0.03 X10^3/uL; Basophil% 0.8 % (0-1); Eosinophil# 0.06 X10^3/uL; Eosinophils% 1.6 % (0-5); Hemoglobin 12.5 g/dL (12.0-15.0); Lymphocyte # 1.73 X10^3/ul (0.83-4.51); Lymphocyte % 46.5 % (19-41); Mean Corp Hgb Conc 33.8 g/dL (32-36); Mean Corpuscular Hgb 29.4 pg (27.0-32.0); Mean Corpuscular Volume 87.1 fL (81-99); Mean Platelet Vol. 9.2 fl (6.2-12.0); Monocyte# 0.32 X10^3/uL; Monocyte% 8.6 % (0-10); NRBC Flagged by Analyzer 0 % (0-5); Neutrophil # 1.58 X10^3/uL (2.7-7.7); Neutrophil % 42.5 % (47-70); Platelet Count 174 K/mm3 (150-450); RBC Distribution Width CV 12.3 % (11.6-14.6); RBC Distribution Width SD 39.6 fl (35.1-43.9); Red Blood Count 4.25 M/mm3 (4.2-5.4); White Blood Count 3.7 K/mm3 (4.4-11.0)
--- NOTE | 2022-10-07 07:18 | PN.HOSP_ITS ---
Reason for Visit Reason for Visit: Diagnoses Other symptoms and signs involving the nervous system (10/06/22) Objective Data Objective Data Vital Signs: Vital Signs Temp Pulse Resp BP Pulse Ox O2 Del Method 98.1 F 78 14 101/72 100 Room Air 10/07/22 06:00 10/07/22 06:00 10/07/22 06:00 10/07/22 06:00 10/07/22 06:00 10/07/22 06:00 Oxygen Delivery Method Room Air Weight: 121 lb 7.595 oz Body Mass Index (BMI) 21.5 Intake & Output: Intake and Output for Last 24 Hours 10/05/22 10/06/22 10/07/22 23:59 23:59 23:59 Intake Total 102 / 102 Balance 102 / 102 Lab / Micro Data Result Diagrams: 10/06/22 20:18 10/06/22 20:18 Labs: Laboratory Results - last 24 hr 10/06/22 20:12: POC Glucose 189 H 10/06/22 20:18: WBC 4.5, RBC 4.55, Hgb 13.5, Hct 40.0, MCV 87.9, MCH 29.7, MCHC 33.8, RDW Std Deviation 39.2, RDW Coeff of Jose Antonio 12.2, Plt Count 193, MPV 9.2, Immature Gran % (Auto) 0.200, Neut % (Auto) 46.2 L, Lymph % (Auto) 41.6 H, Mayes % (Auto) 9.6, Eos % (Auto) 2.0, Baso % (Auto) 0.4, Absolute Neuts (auto) 2.1, Absolute Lymphs (auto) 1.87, Nucleated RBC % 0 10/06/22 20:18: PT 12.2, INR 0.9, APTT 26.0 10/06/22 20:18: Sodium 135 L, Potassium 3.8, Chloride 99, Carbon Dioxide 29.0, Anion Gap 7, BUN 20 H, Creatinine 0.84, Estim Creat Clear Calc 81.01, Est GFR (MDRD) Af Amer 103, Est GFR (MDRD) Non-Af 85, BUN/Creatinine Ratio 23.9 H, Glucose 193 H, Calcium 10.3 H, Troponin I High Sens < 3 L 10/06/22 20:18: Serum , Qual NEGATIVE 10/06/22 20:18: Magnesium 1.6 10/06/22 20:18: Ethyl Alcohol < 3.0 10/07/22 06:45: POC Glucose 137 H Radiography Diagnostic Testing: Radiology Impression Brain CT 10/06/22 20:10 IMPRESSION: Normal unenhanced CT scan of the brain. AIDOC was utilized to assist in identifying pertinent positive findings in this case. Electronically Signed: Eitan Coffman DO at 20:46 EST Reading Location ID and State: [employer] / [employer] Tel [phone], Service support , ADDENDUM: 10/06/222052 IMPRESSION: Normal unenhanced CT scan of the brain. AIDOC was utilized to assist in identifying pertinent positive findings in this case. N.B. : The above Results were Read Back by Eitan Coffman DO to Barron Downing MD, and understanding confirmed on 10/06/2022 20:46:26 (ET). Electronically Signed: Eitan Coffman DO at 20:46 EST Reading Location ID and State: [employer] / [employer] Tel [phone], Service support , Head/Neck CTA 10/06/22 20:11 IMPRESSION: Normal CTA Head and neck with contrast. Electronically Signed: Eitan Coffman DO at 21:02 EST Reading Location ID and State: [employer] / [employer] Tel [phone], Service support , ADDENDUM: 10/06/222111 IMPRESSION: Normal CTA Head and neck with contrast. N.B. : The above Results were Read Back by Eitan Coffman DO to Barron Downing MD, and understanding confirmed on 10/06/2022 21:05:39 (ET). Electronically Signed: Eitan Coffman DO at 21:02 EST Reading Location ID and State: [employer] / [employer] Tel [phone], Service support , Chest X-Ray 10/06/22 20:31 IMPRESSION: Normal x-ray examination of the chest. Electronically Signed: Eitan Coffman DO at 21:03 EST Reading Location ID and State: [address] [place] [address] Tel [phone], Service support , Assessment & Plan Assessment/Plan (1) Neurological deficit, transient: PLAN: Plan The patient is a 32 y/o F admitted for evaluation of left-sided weakness for over an hour prior to ED arrival. Started with tingling sensation in left foot progressed to entire left side of body, feeling weak progressed to left arm feeling weaker along with trouble speaking mainly dysarthria. Symptoms lasted for 30 minutes and completely resolved in ED. Patient never had a stroke like symptoms before. #1. Left-sided hemiplegia and paresthesias as well as dysarthria, transient concerning for TIA/CVA versus possible complex migraine with history of migraines: Patient is being admitted in PCU. CT head and CTA today neck reported no acute abnormality, in fact normal. She has no risk factors of stroke including diabetes mellitus type 2, control pill, dyslipidemia and is also history of migraine. Patient was evaluated by [facility] neurologist and impression is complicated migraine, TIA/stroke less likely but cannot be ruled out. MRI brain without contrast, 2D echo, FLP and A1c. Aspirin 324 mg and 81 mg daily, Plavix 300 mg and then 75 mg daily. Magnesium 1.6, mild hypomagnesemia. IV magnesium replaced. #2. Hypothyroidism with history of Graves' disease: Status post prior thyroidectomy, we will continue patient home levothyroxine regimen, TSH and free T4 requested. #3. Hyperlipidemia: continue patient on statin therapy, FLP in am #4. Diabetes mellitus type II: Hold oral home regimen, continue home insulin regimen, ADA diet, accu checks w/ ISS, hemoglobin A1c requested, nutrition consultation for education and teaching given acute presentation. #5. Former tobacco use: Encourage continued tobacco cessation. EtOH level pending. #6. Former alcohol abuse: Encouraged continued sobriety. #7. MARIAH: CPAP nightly. #8. DVT prophylaxis: Lovenox. #9. CODE STATUS: Full code. Laboratory Results 10/06/22 20:12: POC Glucose 189 H 10/06/22 20:18: WBC 4.5, RBC 4.55, Hgb 13.5, Hct 40.0, MCV 87.9, MCH 29.7, MCHC 33.8, RDW Std Deviation 39.2, RDW Coeff of Jose Antonio 12.2, Plt Count 193, MPV 9.2, Immature Gran % (Auto) 0.200, Neut % (Auto) 46.2 L, Lymph % (Auto) 41.6 H, Mayes % (Auto) 9.6, Eos % (Auto) 2.0, Baso % (Auto) 0.4, Absolute Neuts (auto) 2.1, Absolute Lymphs (auto) 1.87, Nucleated RBC % 0 10/06/22 20:18: PT 12.2, INR 0.9, APTT 26.0 10/06/22 20:18: Sodium 135 L, Potassium 3.8, Chloride 99, Carbon Dioxide 29.0, Anion Gap 7, BUN 20 H, Creatinine 0.84, Estim Creat Clear Calc 81.01, Est GFR (MDRD) Af Amer 103, Est GFR (MDRD) Non-Af 85, BUN/Creatinine Ratio 23.9 H, Glucose 193 H, Calcium 10.3 H, Troponin I High Sens < 3 L 10/06/22 20:18: Serum , Qual NEGATIVE 10/06/22 20:18: Magnesium 1.6 10/06/22 20:18: Ethyl Alcohol < 3.0 10/07/22 06:45: POC Glucose 137 H
[2022-10-07] MEDS: Clopidogrel Bisulfate 300 MG Tablet PO (07:59)
[2022-10-07] MEDS: Aspirin 81 MG TAB.CHEW PO (07:59)
[2022-10-07 08:00] VITALS: O2SAT 97
[2022-10-07 08:01] LABS: AST(SGOT) 6 U/L (15-37); Alanine Aminotransfer ALT/SGPT 14 U/L (13-56); Albumin, Serum 3.1 g/dL (3.2-5.0); Alkaline Phosphatase 36 U/L (45-117); Anion Gap 7 (5-15); BUN 13 mg/dL (7-18); BUN/Creat Ratio 24.5 RATIO (10-20); Calcium,Total 8.6 mg/dL (8.5-10.1); Chloride 103 mmol/L (98-107); Cholesterol 156 mg/dL (200); Creatinine, Serum 0.53 mg/dL (0.55-1.02); EST Glomerular Filtration Rate 144 mL/min (>60); Est Glom Filt Rate - Afr Amer 174 mL/min (>60); Estimated Creatinine Clearance 128.39 ml/min; Globulin 3.2 g/dL (2.2-4.2); Glucose 133 mg/dL (74-106); High Density Lipoprotein 56 mg/dL; Potassium 3.7 mmol/L (3.5-5.1); Protein, Total 6.3 g/dL (6.4-8.2); Sodium Level 138 mmol/L (136-145); T4 Free Direct 1.19 ng/dL (0.76-1.46); Thyroid Stim Hormone (TSH) 6.51 uIU/mL (0.358-3.74); Triglycerides 105 mg/dL; Very Low Density Lipoprotein 21 mg/dL (5-40)
[2022-10-07 08:15] LABS: Hemoglobin A1c 6.4 % (3.8-5.6)
--- NOTE | 2022-10-07 08:52 | DCINST_ITS ---
Discharge Instructions Diet Discharge Diet: Low fat / Low cholesterol and 1800 Calorie Control Diet Activity Discharge Activity: Return to Normal Activity Weight Bearing Status: Weight bearing as tolerated Dressing / Incision Call your doctor if you observe: Fever of 101 or Higher, Coldness, Increased Pain, Numbness or Tingling, Change in Color, Inability to urinate, Inability to have a bowel movement, Using more than 1 pad per hour, Shortness of breath, Dizziness, Fainting spells, Swelling in the ankles, Chest pain, Prolonged hiccupping, Increased palpitations (irregular heartbeat) and Calf discomfort Follow Up Care When: IN 2 WEEKS Test Results: Test results from this visit will be discussed in further detail at your follow- up appointment, if applicable. Discharge Plan Admission Admit Date/Time: 10/06/22 21:17 Primary Reason for Your Visit: Most likely complicated migraine Attending Provider: Teddy Leach Primary Care Provider: Kash Hernandez TRAVEL REGISTERED NURSE PACU Consulting Providers: Danni Kearns Instructions Additional Instructions / Restrictions: The patient has appointment with steam drier tender [facility]. Hold control pill advised to switch to alternative nonhormonal contraceptive. Patient can have ibuprofen 400 to 600 mg every 8 hourly for acute migraine headache onset at home Discharge Orders/Prescriptions Prescriptions: Continued metformin 500 mg Tablet 500 mg PO BID rosuvastatin 10 mg tablet 10 mg PO DAILY levothyroxine 100 mcg tablet 112 mcg PO DAILY (DME) pen needle, diabetic [BD Ultra-Fine Angie Pen Needle] 32 gauge x 5/32 needle See Dose Instructions .ROUTE .MEDSUPPLY Qty: 100 11RF Dose Instruction: As directed Rx Instructions: use with insulin pen (DME) lancets [FreeStyle Lancets] 28 gauge misc See Dose Instructions .ROUTE .MEDSUPPLY Qty: 60 11RF Dose Instruction: As directed Rx Instructions: use to check BG bid Freestyle Lancing device See Rx Instructions .ROUTE .COMPLEX Qty: 1 0RF Dose Instruction: use with lancets to corrdinate with Glucometer ; Rx Instructions: use with lancets to corrdinate with Glucometer ; liothyronine 5 mcg tablet 5 mcg PO DAILY Qty: 30 11RF (DME) FreeStyle Lite Strips strip See Dose Instructions .ROUTE .MEDSUPPLY Qty: 120 11RF Dose Instruction: As directed Rx Instructions: use to check BG 4 x qd cholecalciferol (vitamin D3) 50,000 unit capsule See Rx Instructions .ROUTE .COMPLEX Qty: 14 0RF Dose Instruction: take 1 capsule by mouth every week Rx Instructions: take 1 capsule by mouth every week Held desogestrel-ethinyl estradiol [Enskyce] 0.15-0.03 mg tablet 1 tab PO DAILY Hold Instructions: Hold for now until she talks to [facility] Referrals / Follow Up: Kash Hernandez TRAVEL REGISTERED NURSE PACU, TRAVEL REGISTERED NURSE PACU-C [Primary Care Provider] - Within 2 Weeks Corby Robles MD [Non-Staff -Ordering Privileges] - Within 2 Weeks (Complicated Migraine) Disposition Disposition (needs filled in before D/C Order can be placed): Home, Self Care
[2022-10-07 10:00] VITALS: BP 118/72; PULSE 78; RESP 16; TEMP 37; O2SAT 96
--- NOTE | 2022-10-07 10:35 | MRI_ITS ---
EXAM: MR HEAD WITHOUT INTRAVENOUS CONTRAST CLINICAL INDICATION: CVA TECHNIQUE: Multiplanar and multisequence MR images of the brain were obtained without intravenous contrast. This report was created using [employer] report generation technology. COMPARISON: CT head without contrast and CTA head with contrast 10/06/2022. FINDINGS: BRAIN AND EXTRA-AXIAL SPACES: Horizontal band of T2 FLAIR hyperintensity in the left medial lemniscus, smaller T2 FLAIR hyperintensity in both substantia nigra, multiple small T2 FLAIR hyperintensity in the lower pontine tegmentum and horizontal linear T2 FLAIR hyperintensity in the left posterior pontine reticular formation. There are no mass effects. No intra- or extra-axial hemorrhage. Posterior fossa structures are unremarkable. Ventricles are appropriate for age. No hydrocephalus. Basal cisterns are patent. No diffusion restriction to suspect acute or subacute ischemic infarct. No remote ischemic infarcts. No other focal signal abnormalities throughout the brain parenchyma. SELLA: Unremarkable. Normal sella turcica, pituitary gland, infundibular stalk, optic chiasm and hypothalamus. AUDITORY SYSTEM: Unremarkable. The internal auditory canals are patent. BONES/JOINTS: Unremarkable. No discrete lytic or blastic abnormalities. SINUSES: Unremarkable as visualized. Clear. MASTOID AIR CELLS: Unremarkable as visualized. Clear. ORBITS: Unremarkable as visualized. Both globes, extraocular muscles, optic nerves and retrobulbar fat appear unremarkable. VASCULATURE: Unremarkable as visualized. Normal flow voids in the major intracranial circulation. MRI/Brain without Contrast IMPRESSION: 1. No MRI evidence of acute or subacute ischemic infarct or acute intracranial abnormality. 2. No MRI evidence of old ischemic infarcts, lacunar or cortical based. 3. Abnormal nonspecific T2 FLAIR hyperintensity in the brainstem (left medial lemniscus, both substantia nigra, the lower pontine tegmentum and in the left posterior pontine reticular formation). These are findings not uncommonly seen in the elderly population due to chronic ischemic changes. Considering her young age, exact etiology is unknown since the recent CTA head did not show any suspicious vaso-occlusive disease of the anterior or posterior intracranial circulation. Reversible cerebral vasoconstrictive syndrome is a possible etiology. Electronically Signed: Dusty Katz MD at 12:33 EST ,
--- NOTE | 2022-10-07 10:59 | PCM.DC.SUM ---
Providers Date of Admission: 10/06/22 Primary Care Physician: Kash Hernandez, SCIENTIFIC WRITER-C Reason For Visit: CVA/TIA VS COMPLEX MIGRAINE Diagnosis Discharge Diagnosis (1) Neurological deficit, transient: Status: Acute Code(s): R29.818 - Other symptoms and signs involving the nervous system Plan The patient is a 32 y/o F admitted for evaluation of left-sided weakness for over an hour prior to ED arrival. Started with tingling sensation in left foot progressed to entire left side of body, feeling weak progressed to left arm feeling weaker along with trouble speaking mainly dysarthria. Symptoms lasted for 30 minutes and completely resolved in ED. Patient never had a stroke like symptoms before. #1. Left-sided hemiplegia and paresthesias as well as dysarthria, transient concerning for TIA/CVA versus possible complex migraine with history of migraines: Patient is being admitted in PCU. CT head and CTA today neck reported no acute abnormality, in fact normal. She has no risk factors of stroke including diabetes mellitus type 2, control pill, dyslipidemia and is also history of migraine. Patient was evaluated by [facility] neurologist and impression is complicated migraine, TIA/stroke less likely but cannot be ruled out. MRI brain does not show acute intracranial abnormality. 2D echo reported EF 55% bubble contrast study positive for PFO. Normal right and left atrium. EF 55%. Patient advised to follow-up with neurologist Dr. Robles in 2 weeks. Patient also advised to switch from hormonal contraceptive to nonhormonal at this is risk for migraine frequent attack, DVT/PE and other metabolic disease. Magnesium 1.6, mild hypomagnesemia. IV magnesium replaced. Patient is advised to follow-up with PCP for PFO and we can refer to superintendent greens if patient wants for second opinion. This was communicated to the patient. #2. Hypothyroidism with history of Graves' disease: Status post prior thyroidectomy, we will continue patient home levothyroxine regimen, TSH 6.51 but free T4 normal 1.19, levothyroxine dose increased from 112 225 mcg daily. Continue liothyronine. #3. Hyperlipidemia: continue patient on statin therapy, FLP LDL 79, TG 105. HDL 56. Continue rosuvastatin. #4. Diabetes mellitus type II: A1c 6.4. Good glycemic control. Continue home dose. Follow with PCP. #5. Former tobacco use: Encourage continued tobacco cessation. EtOH level pending. #6. Former alcohol abuse: Encouraged continued sobriety. #7. MARIAH: CPAP nightly. #8. DVT prophylaxis: Lovenox. #9. CODE STATUS: Full code. Laboratory Results 10/06/22 20:12: POC Glucose 189 H 10/06/22 20:18: WBC 4.5, RBC 4.55, Hgb 13.5, Hct 40.0, MCV 87.9, MCH 29.7, MCHC 33.8, RDW Std Deviation 39.2, RDW Coeff of Jose Antonio 12.2, Plt Count 193, MPV 9.2, Immature Gran % (Auto) 0.200, Neut % (Auto) 46.2 L, Lymph % (Auto) 41.6 H, [place] % (Auto) 9.6, Eos % (Auto) 2.0, Baso % (Auto) 0.4, Absolute Neuts (auto) 2.1, Absolute Lymphs (auto) 1.87, Nucleated RBC % 0 10/06/22 20:18: PT 12.2, INR 0.9, APTT 26.0 10/06/22 20:18: Sodium 135 L, Potassium 3.8, Chloride 99, Carbon Dioxide 29.0, Anion Gap 7, BUN 20 H, Creatinine 0.84, Estim Creat Clear Calc 81.01, Est GFR (MDRD) Af Amer 103, Est GFR (MDRD) Non-Af 85, BUN/Creatinine Ratio 23.9 H, Glucose 193 H, Calcium 10.3 H, Troponin I High Sens < 3 L 10/06/22 20:18: Serum , Qual NEGATIVE 10/06/22 20:18: Magnesium 1.6 10/06/22 20:18: Ethyl Alcohol < 3.0 10/07/22 06:45: POC Glucose 137 H Medications at Discharge Home Medications pen needle, diabetic 32 gauge x 32 (BD Ultra-Fine Angie Pen Needle) #100 ea 03/12/18 Freestyle Lancing device See Rx Instructions .Route .COMPLEX ##1 08/29/18 lancets 28 gauge (FreeStyle Lancets) #60 ea 08/29/18 desogestrel 0.15 mg-ethinyl estradiol 0.03 mg tablet (Enskyce) 1 tab PO DAILY 10/08/18 liothyronine 5 mcg tablet 5 mcg PO DAILY #30 tabs 12/20/18 FreeStyle Lite Strips (blood sugar diagnostic) #120 ea 12/24/18 cholecalciferol (vitamin D3) 1,250 mcg (50,000 unit) capsule See Rx Instructions .Route .COMPLEX #14 caps 01/21/19 levothyroxine 100 mcg tablet 112 mcg PO DAILY 10/06/22 metformin 500 mg tablet 500 mg PO BID 10/06/22 rosuvastatin 10 mg tablet 10 mg PO DAILY 10/06/22 levothyroxine 125 mcg tablet 125 mcg PO DAILY #30 tabs 10/07/22 Physical Exam Narrative Seen and examined. Patient symptoms of left-sided tingling and numbness has resolved. Currently patient is asymptomatic. She has history of migraine usually she has retrobulbar pain and usually pain lasts for 4 to 5 hours sometimes for the whole day. She is not on migraine prophylaxis pill and has not seen neurologist. Physical exam General: Alert, Oriented x3, Cooperative HEENT: Atraumatic, PERRLA, EOMI, Normocephalic Oral: No Gingival or Mucosal Lesions/ Ulcerations Neck: Supple, No JVD, Negative Carotid Bruits Lungs: Air entry equal in bilateral lung bases. No crepitation/rhonchi Cardiovascular: Regular rate, Regular Rhythm, Normal S1, Normal S2, No murmurs Abdomen: Bowel Sounds Present, Soft, Non Tender, Non-Distended : No renal angle tenderness. No suprapubic tenderness. Extremities: No edema, Capillary Refill Less than 3 Seconds Skin: No rashes, No breakdown Musculoskeletal: No Tenderness to Palpation of Joints or Extremities Neurological: Cranial nerves II-XII grossly intact, DTR 2+/4 and Symmetrical, Neuro grossly intact Psych/Mental Status: Normal Affect, Appropriate. Weight / BMI Weight Weight: 121 lb 7.595 oz Body Mass Index (BMI) 21.5 ABG / Lab / Microbiology Data Result Diagrams: 10/07/22 06:42 10/07/22 06:42 Laboratory: Laboratory Results - last 24 hr 10/06/22 20:12: POC Glucose 189 H 10/06/22 20:18: WBC 4.5, RBC 4.55, Hgb 13.5, Hct 40.0, MCV 87.9, MCH 29.7, MCHC 33.8, RDW Std Deviation 39.2, RDW Coeff of Jose Antonio 12.2, Plt Count 193, MPV 9.2, Immature Gran % (Auto) 0.200, Neut % (Auto) 46.2 L, Lymph % (Auto) 41.6 H, [place] % (Auto) 9.6, Eos % (Auto) 2.0, Baso % (Auto) 0.4, Absolute Neuts (auto) 2.1, Absolute Lymphs (auto) 1.87, Nucleated RBC % 0 10/06/22 20:18: PT 12.2, INR 0.9, APTT 26.0 10/06/22 20:18: Sodium 135 L, Potassium 3.8, Chloride 99, Carbon Dioxide 29.0, Anion Gap 7, BUN 20 H, Creatinine 0.84, Estim Creat Clear Calc 81.01, Est GFR (MDRD) Af Amer 103, Est GFR (MDRD) Non-Af 85, BUN/Creatinine Ratio 23.9 H, Glucose 193 H, Calcium 10.3 H, Troponin I High Sens < 3 L 10/06/22 20:18: Serum , Qual NEGATIVE 10/06/22 20:18: Magnesium 1.6 10/06/22 20:18: Ethyl Alcohol < 3.0 10/07/22 06:42: WBC 3.7 L, RBC 4.25, Hgb 12.5, Hct 37.0, MCV 87.1, MCH 29.4, MCHC 33.8, RDW Std Deviation 39.6, RDW Coeff of Jose Antonio 12.3, Plt Count 174, MPV 9.2, Immature Gran % (Auto) 0.000, Neut % (Auto) 42.5 L, Lymph % (Auto) 46.5 H, [place] % (Auto) 8.6, Eos % (Auto) 1.6, Baso % (Auto) 0.8, Absolute Neuts (auto) 1.6 L, Absolute Lymphs (auto) 1.73, Nucleated RBC % 0 10/07/22 06:42: Sodium 138, Potassium 3.7, Chloride 103, Carbon Dioxide 28.0, Anion Gap 7, BUN 13, Creatinine 0.53 L, Estim Creat Clear Calc 128.39, Est GFR (MDRD) Af Amer 174, Est GFR (MDRD) Non-Af 144, BUN/Creatinine Ratio 24.5 H, Glucose 133 H, Calcium 8.6, Total Bilirubin 0.30, AST 6 L, ALT 14, Alkaline Phosphatase 36 L, Total Protein 6.3 L, Albumin 3.1 L, Globulin 3.2, Albumin/Globulin Ratio 1.0, Triglycerides 105, Cholesterol 156, LDL Cholesterol 79, VLDL Cholesterol 21, HDL Cholesterol 56, TSH 6.51 H, Free T4 1.19 10/07/22 06:42: Hemoglobin A1c 6.4 H 10/07/22 06:45: POC Glucose 137 H Radiography Diagnostic Testing: Radiology Impression Brain CT 10/06/22 20:10 IMPRESSION: Normal unenhanced CT scan of the brain. [facility] was utilized to assist in identifying pertinent positive findings in this case. Electronically Signed: Eitan Coffman DO at 20:46 EST Reading Location ID and State: [facility] / [place] Tel [phone], Service support , ADDENDUM: 10/06/222052 IMPRESSION: Normal unenhanced CT scan of the brain. [employer] was utilized to assist in identifying pertinent positive findings in this case. N.B. : The above Results were Read Back by Eitan Coffman DO to Barron Lopez MD, and understanding confirmed on 10/06/2022 20:46:26 (ET). Electronically Signed: Eitan Coffman DO at 20:46 EST Reading Location ID and State: [employer] / [employer] Tel [phone], Service support , Head/Neck CTA 10/06/22 20:11 IMPRESSION: Normal CTA Head and neck with contrast. Electronically Signed: Eitan Coffman DO at 21:02 EST Reading Location ID and State: [facility] / [facility] Tel [phone], Service support , ADDENDUM: 10/06/222111 IMPRESSION: Normal CTA Head and neck with contrast. N.B. : The above Results were Read Back by Eitan Coffman DO to Barron Lopez MD, and understanding confirmed on 10/06/2022 21:05:39 (ET). Electronically Signed: Eitan Coffman DO at 21:02 EST Reading Location ID and State: [facility] / [place] Tel [phone], Service support , Chest X-Ray 10/06/22 20:31 IMPRESSION: Normal x-ray examination of the chest. Electronically Signed: Eitan Coffman DO at 21:03 EST Reading Location ID and State: [address] [place] [address] Tel [phone], Service support , D/C Instructions Discharge Diet: Low fat / Low cholesterol and 1800 Calorie Control Diet Weight Bearing Status: Weight bearing as tolerated Call your doctor if you observe: Fever of 101 or Higher, Coldness, Increased Pain, Numbness or Tingling, Change in Color, Inability to urinate, Inability to have a bowel movement, Using more than 1 pad per hour, Shortness of breath, Dizziness, Fainting spells, Swelling in the ankles, Chest pain, Prolonged hiccupping, Increased palpitations (irregular heartbeat) and Calf discomfort When: IN 2 WEEKS Meaningful Use Info Meaningful Use Diagnoses (Choose all that apply): None applicable Discharge Plan Admission Admit Date/Time: 10/06/22 21:17 Primary Reason for Your Visit: Most likely complicated migraine Attending Provider: Teddy Leach Primary Care Provider: Kash Hernandez SCIENTIFIC WRITER Consulting Providers: Danni Kearns Instructions Additional Instructions / Restrictions: The patient has appointment with junior net developer in [facility]. Hold control pill advised to switch to alternative nonhormonal contraceptive. Patient can have ibuprofen 400 to 600 mg every 8 hourly for acute migraine headache onset at home Discharge Orders/Prescriptions Prescriptions: New levothyroxine 125 mcg tablet 125 mcg PO DAILY Qty: 30 1RF Continued metformin 500 mg Tablet 500 mg PO BID rosuvastatin 10 mg tablet 10 mg PO DAILY levothyroxine 100 mcg tablet 112 mcg PO DAILY (DME) pen needle, diabetic [BD Ultra-Fine Angie Pen Needle] 32 gauge x 5/32 needle See Dose Instructions .ROUTE .MEDSUPPLY Qty: 100 11RF Dose Instruction: As directed Rx Instructions: use with insulin pen (DME) lancets [FreeStyle Lancets] 28 gauge misc See Dose Instructions .ROUTE .MEDSUPPLY Qty: 60 11RF Dose Instruction: As directed Rx Instructions: use to check BG bid Freestyle Lancing device See Rx Instructions .ROUTE .COMPLEX Qty: 1 0RF Dose Instruction: use with lancets to corrdinate with Glucometer ; Rx Instructions: use with lancets to corrdinate with Glucometer ; liothyronine 5 mcg tablet 5 mcg PO DAILY Qty: 30 11RF (DME) FreeStyle Lite Strips strip See Dose Instructions .ROUTE .MEDSUPPLY Qty: 120 11RF Dose Instruction: As directed Rx Instructions: use to check BG 4 x qd cholecalciferol (vitamin D3) 50,000 unit capsule See Rx Instructions .ROUTE .COMPLEX Qty: 14 0RF Dose Instruction: take 1 capsule by mouth every week Rx Instructions: take 1 capsule by mouth every week Held desogestrel-ethinyl estradiol [Enskyce] 0.15-0.03 mg tablet 1 tab PO DAILY Hold Instructions: Hold for now until she talks to Tankroom Worker Referrals / Follow Up: Corby Robles MD [Non-Staff -Ordering Privileges] - Within 2 Weeks (Complicated Migraine) Kash Hernandez SCIENTIFIC WRITER, SCIENTIFIC WRITER-C [Primary Care Provider] - Within 2 Weeks Disposition Disposition (needs filled in before D/C Order can be placed): Home, Self Care Charges/Coding Visit Charges Inpatient E&M: 00437 Disch Hosp >30min
[2022-10-07 11:55] LABS: Bedside Glucose 153 mg/dL (74-106)
--- NOTE | 2022-10-07 12:42 | CASEMGMT ---
Social Work SW completed PHQ-9 w/pt as she may have had a stroke. Pt did score a 12. Pt states has struggled with anxiety and depression since she was a teenager. Support offered. Pt states she is in counseling with Christi at [facility] here in [place]. Pt is happy with her therapist and declined needing any resources. She states her job has been very stressful, but she did just put in her two weeks notice and is feeling better. She also is considering going on a mood stabilizer, we spoke about the benefits of medication. Pt denies being suicidal at this time. Pt denies needing any additional support or resources. No further needs at this time. LINDSAY Benson
== END 2022-10-07 10:58 | disposition home or self-care (01) ==
LOC: ED 21:40 → PCU 21:51
PROVIDERS: Admitting Provider Family Medicine; Emergency Provider Emergency Medicine; PCP Nurse Practitioner Family; Visit Provider Internal Medicine
DX: R29.818 Other symptoms and signs involving the nervous system (principal); G81.94 Hemiplegia, unspecified affecting left nondominant side; E11.9 Type 2 diabetes mellitus without complications; R29.700 NIHSS score 0; E78.00 Pure hypercholesterolemia, unspecified; Z87.891 Personal history of nicotine dependence; E89.0 Postprocedural hypothyroidism; Z79.84 Long term (current) use of oral hypoglycemic drugs; R47.1 Dysarthria and anarthria; Z79.899 Other long term (current) drug therapy; Z79.890 Hormone replacement therapy; Z79.3 Long term (current) use of hormonal contraceptives
CPT/HCPCS: 70450; 70496; 70498; 70551; 71045; 80048; 80053; 80061; 82077; 82962; 83036; 83735; 84439; 84443; 84484; 84703; 85025; 85610; 85730; 92610; 93005; 93306; 94762; 96360; 96361; 99221; 99285; Q9967; A4216; G0378

== ENCOUNTER → 2022-10-14 | Outpatient (CLI) | payer MEDICAID, SELFPAY ==
[2022-10-14 09:40] LABS: Hematocrit 41.4 % (37-47); Hemoglobin 13.9 g/dL (12.0-15.0); Mean Corp Hgb Conc 33.6 g/dL (32-36); Mean Corpuscular Hgb 29.9 pg (27.0-32.0); Platelet Count 228 K/mm3 (150-450); RBC Distribution Width CV 12.3 % (11.6-14.6); RBC Distribution Width SD 39.8 fl (35.1-43.9); Red Blood Count 4.65 M/mm3 (4.2-5.4); White Blood Count 4.6 K/mm3 (4.4-11.0)
[2022-10-14 11:38] LABS: ALB/GLOB Ratio 1.2 RATIO (0.9-2.4); AST(SGOT) 23 U/L (15-37); Alanine Aminotransfer ALT/SGPT 22 U/L (13-56); Albumin, Serum 3.7 g/dL (3.2-5.0); Alkaline Phosphatase 38 U/L (45-117); Anion Gap 9 (5-15); BUN 17 mg/dL (7-18); BUN/Creat Ratio 24.3 RATIO (10-20); Calcium,Total 9.2 mg/dL (8.5-10.1); Chloride 104 mmol/L (98-107); EST Glomerular Filtration Rate 104 mL/min (>60); Est Glom Filt Rate - Afr Amer 126 mL/min (>60); Estradiol 37.3 pg/mL; Follicle Stimulating Hormone 5.9 mIU/mL; Globulin 3.2 g/dL (2.2-4.2); Glucose 144 mg/dL (74-106); Luteinizing Hormone 6.4 mIU/mL; Potassium 4.3 mmol/L (3.5-5.1); Prolactin 4.4 ng/mL; Protein, Total 6.9 g/dL (6.4-8.2); Sodium Level 139 mmol/L (136-145); T4 Free Direct 1.45 ng/dL (0.76-1.46); Thyroid Stim Hormone (TSH) 0.96 uIU/mL (0.358-3.74)
[2022-10-16 09:42] LABS: Progesterone Level < 0.21 ng/mL (See Comment)
== END | disposition home or self-care (01) ==
LOC: LAB 09:00
PROVIDERS: PCP Nurse Practitioner Family; Visit Provider Nurse Practitioner Family
DX: I95.9 Hypotension, unspecified (principal); N92.3 Ovulation bleeding; E03.9 Hypothyroidism, unspecified
CPT/HCPCS: 36415; 80053; 82670; 83001; 83002; 84144; 84146; 84439; 84443; 85027

== ENCOUNTER → 2023-03-05 | Outpatient (CLI) | payer SELFPAY ==
[2023-03-05 15:58] LABS: Hemoglobin A1c 6.3 % (3.8-5.6)
[2023-03-05 16:19] LABS: Cholesterol 146 mg/dL (200); High Density Lipoprotein 83 mg/dL; Thyroid Stim Hormone (TSH) 0.54 uIU/mL (0.358-3.74); Triglycerides 42 mg/dL; Very Low Density Lipoprotein 8 mg/dL (5-40)
== END | disposition home or self-care (01) ==
PROVIDERS: PCP Nurse Practitioner Family; Referring Provider Nurse Practitioner Family; Visit Provider Nurse Practitioner Family
DX: E78.5 Hyperlipidemia, unspecified (principal); E11.9 Type 2 diabetes mellitus without complications; I95.9 Hypotension, unspecified; E03.9 Hypothyroidism, unspecified; E55.9 Vitamin D deficiency, unspecified; R79.89 Other specified abnormal findings of blood chemistry
CPT/HCPCS: 36415; 80061; 83036; 84439; 84443

== ENCOUNTER → 2023-10-24 | Outpatient (CLI) | payer BC, SELFPAY ==
[2023-10-24 09:14] LABS: ALB/GLOB Ratio 1.2 RATIO (0.9-2.4); AST(SGOT) 24 U/L (15-37); Alanine Aminotransfer ALT/SGPT 44 U/L (13-56); Albumin, Serum 3.8 g/dL (3.2-5.0); Alkaline Phosphatase 53 U/L (45-117); Anion Gap 6 (5-15); BUN 18 mg/dL (7-18); BUN/Creat Ratio 27.9 RATIO (10-20); Calcium,Total 9.2 mg/dL (8.5-10.1); Chloride 107 mmol/L (98-107); Cholesterol 185 mg/dL (200); Creatinine, Serum 0.64 mg/dL (0.55-1.02); EST Glomerular Filtration Rate 114 mL/min (>60); Est Glom Filt Rate - Afr Amer 138 mL/min (>60); Globulin 3.3 g/dL (2.2-4.2); Glucose 179 mg/dL (74-106); High Density Lipoprotein 78 mg/dL; Potassium 4.3 mmol/L (3.5-5.1); Protein, Total 7.1 g/dL (6.4-8.2); Sodium Level 138 mmol/L (136-145); T4 Free Direct 1.12 ng/dL (0.76-1.46); Thyroid Stim Hormone (TSH) 2.28 uIU/mL (0.358-3.74); Triglycerides 53 mg/dL; Very Low Density Lipoprotein 11 mg/dL (5-40)
[2023-10-24 10:19] LABS: Vitamin D,25 Hydroxy 37.1 ng/mL
[2023-10-24 12:09] LABS: Hemoglobin A1c 6.6 % (3.8-5.6)
== END | disposition home or self-care (01) ==
LOC: LAB 07:55
PROVIDERS: PCP Nurse Practitioner Family; Visit Provider Nurse Practitioner Family
DX: E11.9 Type 2 diabetes mellitus without complications (principal); E03.9 Hypothyroidism, unspecified; E78.5 Hyperlipidemia, unspecified; E55.9 Vitamin D deficiency, unspecified
CPT/HCPCS: 36415; 80053; 80061; 82306; 83036; 84439; 84443

== ENCOUNTER 2023-11-14 20:13 | Emergency (ER) | payer BC, SELFPAY ==
[2023-11-14 20:13] VITALS: BP 128/83; PULSE 72; RESP 18; TEMP 36.2; O2SAT 98; BMI 23.8
--- NOTE | 2023-11-14 20:44 | EDS_ITS ---
HPI History of Present Illness Chief Complaint: Hyperglycemia Detail of Chief Complaint: Elevated blood sugar Informant: patient Narrative Narrative: Patient presents with elevated blood sugar today up to 360 at home. Patient states that she received a cortisone injection in her right hand for trigger finger. Injection was 2 days ago. Patient normally well-controlled with blood sugars usually under 150. She denies recent illness. She denies nausea or vomiting. She has had no fevers [facility] Medical History (Updated 11/14/23 @ 22:[address] Merry Tanner, ) Abnormal laboratory test Acne Alcohol abuse Chronic migraine Contact with and (suspected) exposure to other viral communicable diseases Diabetes mellitus type 2, controlled, without complications Diabetes type 2, controlled Former tobacco use ROMARIO (generalized anxiety disorder) Graves disease Heart murmur Hemiplegia affecting left nondominant side History of alcohol abuse History of migraine Hx of hypercholesterolemia Hyperglycemia, unspecified Hyperlipidemia Hyperthyroidism Hypoglycemia Hypotension Hypothyroidism Mitral valve prolapse Palpitations PFO (patent foramen ovale) Polycystic ovarian disease Sleep apnea URI (upper respiratory infection) Vaginal bleeding between periods Vitamin D deficiency Home Medications pen needle, diabetic 32 gauge x 5/32 (BD Ultra-Fine Angie Pen Needle) #100 ea 03/12/18 [Rx Last Taken Unknown] Freestyle Lancing device See Rx Instructions .Route .COMPLEX ##1 08/29/18 [Rx Last Taken Unknown] lancets 28 gauge (FreeStyle Lancets) #60 ea 08/29/18 [Rx Last Taken Unknown] liothyronine 5 mcg tablet 5 mcg PO DAILY #30 tabs 12/20/18 [Rx Last Taken Unknown] FreeStyle Lite Strips (blood sugar diagnostic) #120 ea 12/24/18 [Rx Last Taken Unknown] rosuvastatin 10 mg tablet 10 mg PO DAILY 10/06/22 [History Last Taken Unknown] cholecalciferol (vitamin D3) 25 mcg (1,000 unit) capsule 25 mcg PO DAILY [History Last Taken Unknown] levothyroxine 112 mcg tablet 112 mcg PO DAILY 10/20/22 [History Last Taken Unknown] pimecrolimus 1 % topical cream 1 applic topical ONCE 10/20/22 [History Last Taken Unknown] aspirin 81 mg tablet,delayed release 81 mg PO DAILY 10/26/22 [History Last Taken Unknown] metformin 500 mg tablet 500 mg PO BID 10/26/22 [History Last Taken Unknown] Allergy/AdvReac Type Severity Reaction Status Date / Time No Known Allergies Allergy Verified 11/14/23 20:15 Family History Father Hypertension High cholesterol Mother Alcoholism Grandmother Arthritis Grandfather Cancer Surgical History Hx of thyroidectomy Social History household members: significant other Smoking Status: Former smoker quit date: 07/30/16 Tobacco: How many years used: 9 how long ago did patient quit smoking: Quit 6-7 years prior, smoked 1 ppd since teen until quit. second hand exposure: No alcohol intake: former details: Former heavy drinker, sober 6-7 years. substance use type: does not use and marijuana caffeine: No what type of physical activity do you participate in: walking, running, bicycling and weight training frequency: 3-4 times per week seatbelt use: always ROS ROS ED ROS Narrative Hyperglycemia Review of Systems ROS Unobtainable: other Constitutional Constitutional ED: Reports lethargy; Denies chills, fever(s), sweats or weight loss Eyes Eyes: Denies blurry vision, change in vision or diplopia ENT ENT ED: Denies rhinorrhea or sore throat Cardiovascular Cardiovascular: Denies chest pain, orthopnea or racing heartbeat Respiratory/Chest Respiratory/Chest: Denies cough, dyspnea, dyspnea on exertion, orthopnea or sputum Gastrointestinal Gastrointestinal: Denies abdominal pain, diarrhea, nausea or vomiting Genitourinary Genitourinary ED: Denies dysuria, hematuria or urinary frequency Musculoskeletal Musculoskeletal: Denies arthralgias, back pain, myalgias or neck pain Integumentary Denies abscess, Abrasions or rash Neurologic Neurologic: Denies headache(s) or weakness Psychiatric Psychiatric: Denies anxiety, depression or suicidal thoughts Endocrine Endocrinology: Denies polydipsia, polyphagia or polyuria Hematologic/Lymphatic Hematologic/Lymphatic: Denies easy bleeding, easy bruising or lymphadenopathy Allergic/Immunologic Allergic/Immunologic ED: Denies mouth swelling, tongue swelling or urticaria EXAM Physical Exam Const Vital Signs: 11/14/23 20:13 11/14/23 21:13 Temperature 97.2 F L Temperature Source Oral Pulse Rate 72 Respiratory Rate 18 Respiratory Effort Normal Respiratory Pattern Normal Blood Pressure 128/83 H Blood Pressure Mean 98 Pulse Ox 98 Oxygen Delivery Method Room Air Positive well nourished and well developed General Appearance ED: well developed and NAD HEENT Reports TM's clear and moist mucous membranes normocephalic and atraumatic; Negative for trauma or tenderness Tympanic Membrane ED: Yes TM's clear Eyes PERRL and EOMs intact bilaterally General Eye ED: Negative for pale conjunctiva or scleral icterus Neck no lymphadenopathy, supple and no JVD General: Negative for tenderness Chest Wall inspection of chest normal and palpation of chest normal Chest: Negative for tenderness Resp normal respiratory effort and clear to auscultation bilaterally Effort and Inspection: Negative for respiratory distress or pain with movement Auscultation: Negative for rhonchi, wheezes or diminished lung sounds Cardio regular rate, regular rhythm, S1 normal heart sound, S2 normal heart sound and no murmurs Peripheral Pulses: pulses 2+ throughout GI normal to inspection, nondistended, normoactive bowel sounds, soft to palpation, non-tender, non-distended and no masses Back/Spine no CVA tenderness and no thoracic nor lumbar tenderness Extremity normal to inspection General Extremety ED: Negative for edema General Extremity: Negative for edema Neuro oriented x3, CN's II-XII intact bilaterally, no sensory deficits noted and gait normal Sensorium / Orientation: awake, alert, oriented to person, oriented to place and oriented to time Motor Exam: strength 5/5 throughout and strength abnormal Psych mental status grossly normal Skin no rashes or lesions noted and no wounds MDM MDM MDM Narrative Medical decision making narrative: Patient presents with elevated blood glucose after steroid injection for trigger finger. Patient has had no vomiting or recent illness. CBC with differential obtained. She was ordered normal saline. CBC with differential obtained showed white count 7.2 with hemoglobin 12.6 and platelet count of 218. Chemistries were unremarkable. BUN 21 and creatinine 0.67. Anion gap was normal at 13. Blood glucose was 351. Urinalysis showed thousand glucose and 150 ketones. Patient was ordered 8 units of insulin subcu. Will observe her for an hour and then will discharge to home. Patient did have moderate acetone serum which may be more dehydrational. She is not in DKA. I advised her to increase her metformin to 1000 mg in the morning and 500 mg at night. Recommended close monitoring of her blood glucose and follow-up with her primary care physician within next 3 to 5 days. Lab Data Attestation: I reviewed the patient's lab results. Labs: Laboratory Results - last 24 hr 11/14/23 11/14/23 20:50 21:11 WBC 7.2 RBC 4.41 Hgb 12.6 Hct 38.0 MCV 86.2 MCH 28.6 MCHC 33.2 RDW Std Deviation 38.7 RDW Coeff of [place] 12.1 Plt Count 218 MPV 9.4 Immature Gran % (Auto) 0.300 Neut % (Auto) 48.5 Lymph % (Auto) 42.6 H [place] % (Auto) 7.1 Eos % (Auto) 0.8 Baso % (Auto) 0.7 Absolute Neuts (auto) 3.5 Absolute Lymphs (auto) 3.06 Nucleated RBC % 0 Sodium 136 Potassium 3.8 Chloride 102 Carbon Dioxide 21.0 Anion Gap 13 BUN 21 H Creatinine 0.67 Estim Creat Clear Calc 100.64 Est GFR (MDRD) Af Amer 132 Est GFR (MDRD) Non-Af 109 BUN/Creatinine Ratio 31.4 H Glucose 351 H Calcium 9.3 Urine Color Yellow Urine Clarity Clear Urine pH 5.0 Ur Specific [place] 1.015 Urine Protein Negative Urine Glucose (UA) 1000 H Urine Ketones 150 A* Urine Occult Blood Negative Urine Nitrite Negative Urine Bilirubin Negative Urine Urobilinogen Normal Ur Leukocyte Esterase Negative Urine RBC 0 SEEN Urine WBC 0 SEEN Ur Squamous Epith Cells 0 SEEN Urine Bacteria 0 SEEN Urine Mucus 0 SEEN Acetone Level MODERATE H Discharge Plan Triage Chief Complaint: Hyperglycemia ED Provider: Merry Tanner Dx/Rx/DC Orders Clinical Impression: Hyperglycemia Instructions: ED Diabetic Hyperglycemia Prescriptions: No Action cholecalciferol (vitamin D3) 25 mcg (1,000 unit) capsule 25 mcg PO DAILY levothyroxine 112 mcg tablet 112 mcg PO DAILY pimecrolimus 1 % cream 1 applic topical ONCE Patient Comments: START APPLYING TO THE AFFECTED LESIONS ON THE FACE ONCE A DAY aspirin 81 mg tablet,delayed release (DR/EC) 81 mg PO DAILY rosuvastatin 10 mg tablet 10 mg PO DAILY metformin 500 mg tablet 500 mg PO BID (DME) pen needle, diabetic [BD Ultra-Fine Angie Pen Needle] 32 gauge x 5/32 needle See Dose Instructions .ROUTE .MEDSUPPLY Qty: 100 11RF Dose Instruction: As directed Rx Instructions: use with insulin pen (DME) lancets [FreeStyle Lancets] 28 gauge misc See Dose Instructions .ROUTE .MEDSUPPLY Qty: 60 11RF Dose Instruction: As directed Rx Instructions: use to check BG bid Freestyle Lancing device See Rx Instructions .ROUTE .COMPLEX Qty: 1 0RF Dose Instruction: use with lancets to corrdinate with Glucometer ; Rx Instructions: use with lancets to corrdinate with Glucometer ; liothyronine 5 mcg tablet 5 mcg PO DAILY Qty: 30 11RF (DME) FreeStyle Lite Strips strip See Dose Instructions .ROUTE .MEDSUPPLY Qty: 120 11RF Dose Instruction: As directed Rx Instructions: use to check BG 4 x qd Primary Care Provider: Kash Hernandez NP Referrals: Kash Hernandez NP, [facility] [Primary Care Provider] - 3-5 Days Activity Restrictions/Additional Instructions: Increase your metformin to 1000 mg in the morning and 500 mg at night until your blood sugars moderate. Disposition Disposition: Home, Self Care
[2023-11-14 20:58] LABS: Bacteria 0 SEEN /hpf (None Seen); Mucous, Urine 0 SEEN /hpf (<or=2+); Red Blood Cells-Urine 0 SEEN /hpf (0-5); Squamous Epithelial Cells - UA 0 SEEN /hpf (5-10); White Blood Cells 0 SEEN /hpf (0-5)
[2023-11-14 21:08] LABS: Color, Urine Yellow (Yellow); Glucose, Dipstick 1000 mg/dl (Normal); Leukocyte Esterase-Dipstick Negative /ul (Negative); Nitrite-Dipstick Negative (Negative); Occult Blood-Urine Negative /ul (Negative); Protein-Dipstick Negative (Negative); Specific Gravity, Urine 1.015 (1.002-1.030); Urine Bilirubin Dipstick Negative (Negative); Urine Clarity Clear (Clear); Urine Urobilinogen Normal (Normal)
[2023-11-14 21:11] LABS: Ketone-Dipstick 150 mg/dl (Negative)
[2023-11-14 21:19] LABS: Absolute Lymphocyte Count 3.06 X10^3/uL (0.83-4.51); Absolute Neutrophil Count 3.5 X10^3/uL (2.0-7.7); Basophil# 0.05 X10^3/uL; Basophil% 0.7 % (0-1); Eosinophil# 0.06 X10^3/uL; Eosinophils% 0.8 % (0-5); Hemoglobin 12.6 g/dL (12.0-15.0); Lymphocyte # 3.06 X10^3/ul (0.83-4.51); Lymphocyte % 42.6 % (19-41); Mean Corp Hgb Conc 33.2 g/dL (32-36); Mean Corpuscular Hgb 28.6 pg (27.0-32.0); Mean Corpuscular Volume 86.2 fL (81-99); Mean Platelet Vol. 9.4 fl (6.2-12.0); Monocyte# 0.51 X10^3/uL; Monocyte% 7.1 % (0-10); NRBC Flagged by Analyzer 0 % (0-5); Neutrophil # 3.49 X10^3/uL (2.7-7.7); Neutrophil % 48.5 % (47-70); Platelet Count 218 K/mm3 (150-450); RBC Distribution Width CV 12.1 % (11.6-14.6); RBC Distribution Width SD 38.7 fl (35.1-43.9); Red Blood Count 4.41 M/mm3 (4.2-5.4); White Blood Count 7.2 K/mm3 (4.4-11.0)
[2023-11-14 21:47] LABS: Anion Gap 13 (5-15); BUN 21 mg/dL (7-18); BUN/Creat Ratio 31.4 RATIO (10-20); Calcium,Total 9.3 mg/dL (8.5-10.1); Chloride 102 mmol/L (98-107); Creatinine, Serum 0.67 mg/dL (0.55-1.02); EST Glomerular Filtration Rate 109 mL/min (>60); Est Glom Filt Rate - Afr Amer 132 mL/min (>60); Estimated Creatinine Clearance 100.64 ml/min; Glucose 351 mg/dL (74-106); Potassium 3.8 mmol/L (3.5-5.1); Sodium Level 136 mmol/L (136-145)
[2023-11-14 22:13] VITALS: PULSE 80; RESP 14; O2SAT 98
[2023-11-14] MEDS: Insulin Lispro 100 UNIT/ML INSULN.PEN 8 UNIT SC (22:31)
[2023-11-14 23:19] VITALS: BP 120/64; PULSE 72; RESP 14; TEMP 36.2; O2SAT 98
[2023-11-14 23:20] LABS: Bedside Glucose 320 mg/dL (74-106)
== END 2023-11-14 23:20 | disposition home or self-care (01) ==
PROVIDERS: Emergency Provider Emergency Medicine; PCP Nurse Practitioner Family; Visit Provider Emergency Medicine
DX: E11.65 Type 2 diabetes mellitus with hyperglycemia (principal); Z87.891 Personal history of nicotine dependence; M65.30 Trigger finger, unspecified finger; E78.00 Pure hypercholesterolemia, unspecified; Z98.890 Other specified postprocedural states
CPT/HCPCS: 80048; 81001; 82009; 82962; 85025; 99282; A4216

== ENCOUNTER 2023-11-28 08:02 | Inpatient (IN) | payer BC, SELFPAY ==
[2023-11-28] VITALS (12 sets, daily range): BP systolic 97–110; BP diastolic 61–85; PULSE 76–105; RESP 12–22; TEMP 36.3–36.7; O2SAT 96–99; BMI 22.9; BMI 23.4
--- NOTE | 2023-11-28 08:06 | EDS_ITS ---
HPI History of Present Illness Chief Complaint: General Illness Informant: patient Onset/Context/Timing Onset: Weeks (2) Context: Gradual Onset Timing: Continuous Quality: Nauseated, unsteady Location: Generalized Worsened by: Nothing Relieved by: Nothing Narrative Narrative: Patient presents with nausea, dizziness, and hyperglycemia for the past 2 weeks. Patient states she is concerned that she is in DKA because she checked her urine and noted there were large ketones. Patient states her sugars have been up to 3 50-400 after receiving a steroid injection. Patient was started on Jardiance 2 days ago and her blood sugars are getting better. Patient states she feels unsteady on her feet. Patient states nothing makes her symptoms better and nothing makes them worse. Patient denies any fevers or chills. Patient states he did travel to [place] recently. Patient states she is also having some diarrhea. Patient denies any melena or hematochezia. [facility] Medical History Abnormal laboratory test Acne Alcohol abuse Chronic migraine Contact with and (suspected) exposure to other viral communicable diseases Diabetes mellitus type 2, controlled, without complications Diabetes type 2, controlled Former tobacco use ROMARIO (generalized anxiety disorder) Graves disease Heart murmur Hemiplegia affecting left nondominant side History of alcohol abuse History of migraine Hx of hypercholesterolemia Hyperglycemia, unspecified Hyperlipidemia Hyperthyroidism Hypoglycemia Hypotension Hypothyroidism Mitral valve prolapse Palpitations PFO (patent foramen ovale) Polycystic ovarian disease Sleep apnea URI (upper respiratory infection) Vaginal bleeding between periods Vitamin D deficiency Home Medications pen needle, diabetic 32 gauge x 5/32 (BD Ultra-Fine Angie Pen Needle) #100 ea 03/12/18 [Rx Last Taken Unknown] Freestyle Lancing device See Rx Instructions .Route .COMPLEX ##1 08/29/18 [Rx Last Taken Unknown] lancets 28 gauge (FreeStyle Lancets) #60 ea 08/29/18 [Rx Last Taken Unknown] liothyronine 5 mcg tablet 5 mcg PO DAILY #30 tabs 12/20/18 [Rx Last Taken Unknown] FreeStyle Lite Strips (blood sugar diagnostic) #120 ea 12/24/18 [Rx Last Taken Unknown] rosuvastatin 10 mg tablet 10 mg PO DAILY 10/06/22 [History Last Taken Unknown] cholecalciferol (vitamin D3) 25 mcg (1,000 unit) capsule 25 mcg PO DAILY 10/20/22 [History Last Taken Unknown] levothyroxine 112 mcg tablet 112 mcg PO DAILY 10/20/22 [History Last Taken Unknown] pimecrolimus 1 % topical cream 1 applic topical ONCE 10/20/22 [History Last Taken Unknown] metformin 500 mg tablet 500 mg PO Q4H 10/26/22 [History Last Taken Unknown] doxycycline monohydrate 50 mg capsule 50 mg PO DAILY 11/28/23 [History Last T aken Unknown] empagliflozin 10 mg tablet (Jardiance) 10 mg PO DAILY 11/28/23 [History Last Taken Unknown] sertraline 50 mg tablet 50 mg PO DAILY 11/28/23 [History Last Taken Unknown] Allergy/AdvReac Type Severity Reaction Status Date / Time No Known Allergies Allergy Verified 11/28/23 08:04 Family History Father Hypertension High cholesterol Mother Alcoholism Grandmother Arthritis Grandfather Cancer Surgical History Hx of thyroidectomy Social History household members: significant other Smoking Status: Former smoker quit date: 07/30/16 Tobacco: How many years used: 9 how long ago did patient quit smoking: Quit 6-7 years prior, smoked 1 ppd since teen until quit. second hand exposure: No alcohol intake: former details: Former heavy drinker, sober 6-7 years. substance use type: does not use and marijuana caffeine: No what type of physical activity do you participate in: walking, running, bicycling and weight training frequency: 3-4 times per week seatbelt use: always ROS ROS ED Constitutional Constitutional ED: Denies chills or fever(s) Eyes Eyes: Reports blurry vision; Denies change in vision ENT ENT ED: Denies rhinorrhea or sore throat Cardiovascular Cardiovascular: Denies chest pain or palpitations Respiratory/Chest Respiratory/Chest: Denies cough or dyspnea Gastrointestinal Gastrointestinal: Reports diarrhea and nausea; Denies vomiting Genitourinary Genitourinary ED: Denies dysuria or hematuria Musculoskeletal Musculoskeletal: Denies back pain or neck pain Integumentary Denies abscess or rash Neurologic Neurologic: Denies headache(s) or weakness Allergic/Immunologic Allergic/Immunologic ED: Denies mouth swelling or urticaria EXAM Physical Exam Const Vital Signs: 11/28/23 08:02 11/28/23 08:57 Temperature 97.4 F L Temperature Source Temporal Pulse Rate 105 H Respiratory Rate 16 Respiratory Effort Normal Non-Labored Respiratory Pattern Normal Blood Pressure 109/85 H Blood Pressure Mean 93 Pulse Ox 99 Oxygen Delivery Method Room Air Positive well nourished and well developed General Appearance ED: well developed and NAD HEENT Reports moist mucous membranes Neck supple and no JVD Resp normal respiratory effort and clear to auscultation bilaterally Cardio regular rhythm Rate: tachycardic GI non-distended Palpation: soft and tender epigastric, LLQ, RLQ, LUQ, RUQ, periumbilical and suprapubic Extremity normal to inspection Neuro oriented x3, CN's II-XII intact bilaterally and no sensory deficits noted Sensorium / Orientation: alert Motor Exam: strength 5/5 throughout Psych mental status grossly normal MDM MDM MDM Narrative Medical decision making narrative: Differential diagnosis includes DKA, dehydration, electrolyte abnormality, acute kidney injury, viral illness, and anxiety. CBC will be obtained to assess for leukocytosis and anemia. Basic metabolic profile will be obtained to assess for electrolyte abnormality and renal function. Serum acetone will be obtained to assess for DKA. Urinalysis will be obtained to assess for urinary tract infection. COVID-19, influenza, and RSV PCR will be obtained to assess for viral illness. Lab Data Attestation: I reviewed the patient's lab results. Lab results narrative: CBC was reviewed and was within normal limits. Basic metabolic profile was reviewed. Glucose was only slightly elevated at 153. CO2 was low at 15 and anion gap was elevated at 17. BUN was slightly elevated at 23. Serum hCG was reviewed and was negative. Urinalysis was reviewed. Urine ketones was 150, urine glucose was 1000. There is no evidence of urinary tract infection or hematuria. Serum acetone was reviewed and was moderate. Venous blood gas was reviewed and showed a pH of 7.336, pCO2 of 20.8, pO2 of 85.2, and bicarb of 11.1. COVID-19 PCR was reviewed and was negative. Influenza PCR was reviewed and was negative for influenza A and influenza B. RSV PCR was reviewed and was negative. Labs: Laboratory Results - last 24 hr 05/01/24 05/01/24 08:24 08:35 WBC 6.5 RBC 4.94 Hgb 14.3 Hct 42.9 MCV 86.8 MCH 28.9 MCHC 33.3 RDW Std Deviation 38.9 RDW Coeff of Jose Antonio 12.1 Plt Count 202 MPV 9.4 Immature Gran % (Auto) 0.200 Neut % (Auto) 69.9 Lymph % (Auto) 24.0 [place] % (Auto) 4.9 Eos % (Auto) 0.5 Baso % (Auto) 0.5 Absolute Neuts (auto) 4.5 Absolute Lymphs (auto) 1.55 Nucleated RBC % 0 Sodium 135 L Potassium 3.7 Chloride 103 Carbon Dioxide 15.0 L Anion Gap 17 H BUN 23 H Creatinine 0.76 Estim Creat Clear Calc 88.72 Est GFR (MDRD) Af Amer 114 Est GFR (MDRD) Non-Af 94 BUN/Creatinine Ratio 30.3 H Glucose 153 H Calcium 9.1 Serum , Qual NEGATIVE Urine Color Yellow Urine Clarity Clear Urine pH 5.0 Ur Specific [place] 1.025 Urine Protein 30 H Urine Glucose (UA) 1000 H Urine Ketones 150 A* Urine Occult Blood Negative Urine Nitrite Negative Urine Bilirubin Negative Urine Urobilinogen Normal Ur Leukocyte Esterase Negative Urine RBC 0 SEEN Urine WBC 0 SEEN Ur Squamous Epith Cells 0-5 SEEN Urine Bacteria 0 SEEN Urine Mucus 0 SEEN Acetone Level MODERATE H ABG Data ABG results: ABG 11/28/23 09:33 Specimen Type TAL Sample Site Not entered VBG pH 7.34 VBG pO2 85 H VBG HCO3 11 L VBG Total CO2 12 L VBG O2 Sat (Calc) 96 H VBG Base Excess -15 L POC Mix VBG pCO2 Pt Tmp 20.8 L O2 Delivery Device Room Air Management Discussion w/another healthcare provider: Hospitalist Treatment and Re-Evaluation :: Patient was given IV fluids and Zofran. Patient was advised of her findings. Patient was started on insulin drip. Patient was advised of the need for hospitalization. Patient is agreeable with this. Case was discussed with the hospitalist. She will admit the patient to her service. Patient understood and was agreeable with the plan. All questions were answered. Discharge Plan Dx/Rx/DC Orders Clinical Impression: Diabetic ketoacidosis, Nausea Disposition Disposition: [facility]
[2023-11-28 08:30] LABS: Bacteria 0 SEEN /hpf (None Seen); Mucous, Urine 0 SEEN /hpf (<or=2+); Red Blood Cells-Urine 0 SEEN /hpf (0-5); White Blood Cells 0 SEEN /hpf (0-5)
[2023-11-28 08:31] LABS: Color, Urine Yellow (Yellow); Glucose, Dipstick 1000 mg/dl (Normal); Ketone-Dipstick 150 mg/dl (Negative); Leukocyte Esterase-Dipstick Negative /ul (Negative); Nitrite-Dipstick Negative (Negative); Occult Blood-Urine Negative /ul (Negative); Protein-Dipstick 30 mg/dl (Negative); Specific Gravity, Urine 1.025 (1.002-1.030); Urine Bilirubin Dipstick Negative (Negative); Urine Clarity Clear (Clear); Urine Urobilinogen Normal (Normal)
[2023-11-28 08:36] LABS: Squamous Epithelial Cells - UA 0-5 SEEN /hpf (5-10)
[2023-11-28 08:43] LABS: Absolute Lymphocyte Count 1.55 X10^3/uL (0.83-4.51); Absolute Neutrophil Count 4.5 X10^3/uL (2.0-7.7); Basophil# 0.03 X10^3/uL; Basophil% 0.5 % (0-1); Eosinophil# 0.03 X10^3/uL; Eosinophils% 0.5 % (0-5); Hematocrit 42.9 % (37-47); Hemoglobin 14.3 g/dL (12.0-15.0); Lymphocyte # 1.55 X10^3/ul (0.83-4.51); Mean Corp Hgb Conc 33.3 g/dL (32-36); Mean Corpuscular Hgb 28.9 pg (27.0-32.0); Mean Corpuscular Volume 86.8 fL (81-99); Mean Platelet Vol. 9.4 fl (6.2-12.0); Monocyte# 0.32 X10^3/uL; Monocyte% 4.9 % (0-10); NRBC Flagged by Analyzer 0 % (0-5); Neutrophil # 4.53 X10^3/uL (2.7-7.7); Neutrophil % 69.9 % (47-70); Platelet Count 202 K/mm3 (150-450); RBC Distribution Width CV 12.1 % (11.6-14.6); RBC Distribution Width SD 38.9 fl (35.1-43.9); Red Blood Count 4.94 M/mm3 (4.2-5.4); White Blood Count 6.5 K/mm3 (4.4-11.0)
[2023-11-28] MEDS: Ondansetron 4 MG/2 ML Vial IV (08:55)
[2023-11-28] MEDS: 0.9% Normal Saline (1000mL) 1,000 ML 1000 ML IV (08:55)
[2023-11-28 08:57] LABS: Anion Gap 17 (5-15); BUN 23 mg/dL (7-18); BUN/Creat Ratio 30.3 RATIO (10-20); Calcium,Total 9.1 mg/dL (8.5-10.1); Chloride 103 mmol/L (98-107); Creatinine, Serum 0.76 mg/dL (0.55-1.02); EST Glomerular Filtration Rate 94 mL/min (>60); Est Glom Filt Rate - Afr Amer 114 mL/min (>60); Estimated Creatinine Clearance 88.72 ml/min; Glucose 153 mg/dL (74-106); Potassium 3.7 mmol/L (3.5-5.1); Sodium Level 135 mmol/L (136-145)
[2023-11-28 09:02] LABS: Internal QC Validated? YES +Cl - CLEAR BKGD; Pregnancy, Serum, hCG Quali. NEGATIVE Negative
--- NOTE | 2023-11-28 09:08 | ED.RN ---
Patient was concerned about taking zofran with being on sertraline. Dr Greenwood was contacted and stated that the patient was ok to take the medication. Patient was informed of what Dr Greenwood had said. Patient was asked if she would still like it or to see if i could get something else. Patient accepted the medication. Medication was given per order. Patient tolerated well.
[2023-11-28 09:36] LABS: Blood Gas Specimen Type VEN; O2 Delivery Device Room Air; SITE Not entered; VBG BASE EXCESS -15 mmol/L (-1.0-3.5); VBG Bicarbonate 11 mmol/L (22-26); VBG PO2 85 mmHg (25-40); VBG SO2 96 % (50-70); VBG TCO2 12 mmol/L (23-33); VBG pCO2 20.8 mmHg (41-51); VBG pH 7.34 (7.32-7.42)
--- NOTE | 2023-11-28 10:16 | HP.PCM.HOS_ITS ---
HPI - General General Date of Admission: 11/28/23 Date of Service: 11/28/23 Chief Complaint: generalised feeling of unwellness HPI Narrative BRIT VELASQUEZ, is a 33 F with a PMH as outlined who presents via the ED on 11/28/2023 with a complaint of generalised malaise. She also had nausea, vomiting and dizziness as well as elevated blood sugar for the last several weeks. She got a steroid shot a few weeks ago for a trigger finger and says she noticed her blood sugars were running high afterwards. She saw her PCP and was started on Jardiance 2 days prior to admission and states her blood sugars have been getting better. However she was still not feeling well and admitted to generalised malaise, weakness, nausea and some vomiting. She checked her urine ketones at home as she was concerned about DKA, and it read as high ketones, so she decided to come into the ED. she was diagnosed with type 2 diabetes mellitus about 6 years ago and states that sugars have been quite well-controlled. She does not follow-up with an hypnotherapist. Her last A1c about a month ago was 6.6. She says she has been told by her primary care doctor that she may have type 1 diabetes mellitus instead of type 2 diabetes mellitus Vitals in the ED were blood pressure 109/85 with pulse rate of 105, respirate rate of 16 and temperature of 97.4 Fahrenheit. She was saturating well on room air. CBC was unremarkable and BMP showed bicarb of 15 with anion gap of 17, with creatinine of 0.76. Urinalysis showed elevated urine glucose as well as elevated urine ketones. Serum ketone level was moderate. Blood sugar on admission was 153. She has been admitted to be managed for DKA likely induced by Jardiance. [facility] Medical History Abnormal laboratory test Acne Alcohol abuse Chronic migraine Contact with and (suspected) exposure to other viral communicable diseases Diabetes mellitus type 2, controlled, without complications Diabetes type 2, controlled Former tobacco use ROMARIO (generalized anxiety disorder) Graves disease Heart murmur Hemiplegia affecting left nondominant side History of alcohol abuse History of migraine Hx of hypercholesterolemia Hyperglycemia, unspecified Hyperlipidemia Hyperthyroidism Hypoglycemia Hypotension Hypothyroidism Mitral valve prolapse Palpitations PFO (patent foramen ovale) Polycystic ovarian disease Sleep apnea URI (upper respiratory infection) Vaginal bleeding between periods Vitamin D deficiency Home Medications pen needle, diabetic 32 gauge x 5/32 (BD Ultra-Fine Angie Pen Needle) #100 ea 03/12/18 [Rx Last Taken Unknown] Freestyle Lancing device See Rx Instructions .Route .COMPLEX ##1 08/29/18 [Rx Last Taken Unknown] lancets 28 gauge (FreeStyle Lancets) #60 ea 08/29/18 [Rx Last Taken Unknown] liothyronine 5 mcg tablet 5 mcg PO DAILY #30 tabs 12/20/18 [Rx Last Taken Unknown] FreeStyle Lite Strips (blood sugar diagnostic) #120 ea 12/24/18 [Rx Last Taken Unknown] rosuvastatin 10 mg tablet 10 mg PO DAILY 10/06/22 [History Last Taken Unknown] cholecalciferol (vitamin D3) 25 mcg (1,000 unit) capsule 25 mcg PO DAILY 10/20/22 [History Last Taken Unknown] levothyroxine 112 mcg tablet 112 mcg PO DAILY 10/20/22 [History Last Taken Unknown] pimecrolimus 1 % topical cream 1 applic topical ONCE 10/20/22 [History Last Taken Unknown] metformin 500 mg tablet 500 mg PO Q4H 10/26/22 [History Last Taken Unknown] doxycycline monohydrate 50 mg capsule 50 mg PO DAILY 11/28/23 [History Last Taken Unknown] empagliflozin 10 mg tablet (Jardiance) 10 mg PO DAILY 11/28/23 [History Last Taken Unknown] sertraline 50 mg tablet 50 mg PO DAILY 11/28/23 [History Last Taken Unknown] Allergy/AdvReac Type Severity Reaction Status Date / Time No Known Allergies Allergy Verified 11/28/23 08:04 Family History Father Hypertension High cholesterol Mother Alcoholism Grandmother Arthritis Grandfather Cancer Surgical History Hx of thyroidectomy Social History household members: significant other Smoking Status: Former smoker quit date: 07/30/16 Tobacco: How many years used: 9 how long ago did patient quit smoking: Quit 6-7 years prior, smoked 1 ppd since teen until quit. second hand exposure: No alcohol intake: former details: Former heavy drinker, sober 6-7 years. substance use type: does not use and marijuana caffeine: No what type of physical activity do you participate in: walking, running, bicyc ling and weight training frequency: 3-4 times per week seatbelt use: always ROS Review of Systems ROS Unobtainable: Denies due to encephalopathy Constitutional Constitutional: Reports anorexia, fatigue, malaise and weakness; Denies change in weight, chills or fever(s) Eyes Eyes: Denies change in vision ENT HEENT: Denies dysphagia, headache(s), hearing loss or sore throat Cardiovascular Cardiovascular: Denies dyspnea on exertion, edema, lightheadedness, orthopnea, palpitations or rapid heart rate Respiratory/Chest Respiratory/Chest: Denies cough, dyspnea, productive cough, shortness of breath at rest or shortness of breath with exertion Gastrointestinal Gastrointestinal: Reports nausea and vomiting; Denies abdominal pain, constipation, diarrhea or dyspepsia Genitourinary Genitourinary: Denies burning urination, difficulty urinating or dysuria Neurologic Neurologic: Denies confusion, dizziness, focal weakness or headache(s) Psychiatric Psychiatric: Denies anxiety or depression Endocrine Endocrinology: Denies change in body appearance Vital Signs Vital Signs Vital Signs: 11/28/23 08:02 11/28/23 08:57 Temperature 97.4 F L Temperature Source Temporal Pulse Rate 105 H Respiratory Rate 16 Respiratory Effort Normal Non-Labored Respiratory Pattern Normal Blood Pressure 109/85 H Blood Pressure Mean 93 Pulse Ox 99 Oxygen Delivery Method Room Air Weight Weight: 129 lb 9 oz Body Mass Index (BMI) 22.9 Physical Exam Const alert, oriented x3 and no apparent distress General Appearance: cooperative HEENT normocephalic, head/scalp atraumatic and hearing grossly normal bilaterally HEENT Narrative: dry oral mucosa Eyes PERRL, EOMs intact bilaterally and conjunctivae normal Neck no lymphadenopathy, supple and no JVD Resp normal respiratory effort, no retractions, no use of accessory muscles and clear to auscultation bilaterally Cardio regular rate, regular rhythm, S1 normal heart sound, S2 normal heart sound and no murmurs GI normal to inspection, nondistended, normoactive bowel sounds, soft to palpation, non-tender and non-distended Extremity normal to inspection, full ROM and no clubbing, cyanosis or edema Neuro oriented x3, CN's II-XII intact bilaterally, moves all extremities and no focal motor deficits Sensorium / Orientation: awake and alert Motor Exam: strength 5/5 throughout Psych affect normal Results Lab / Micro Data 11/28/23 08:35 11/28/23 12:00 Labs: Laboratory Results - last 24 hr 11/28/23 08:24: Urine Color Yellow, Urine Clarity Clear, Urine pH 5.0, Ur Specific Superior 1.025, Urine Protein 30 H, Urine Glucose (UA) 1000 H, Urine Ketones 150 A*, Urine Occult Blood Negative, Urine Nitrite Negative, Urine Bilirubin Negative, Urine Urobilinogen Normal, Ur Leukocyte Esterase Negative, Urine RBC 0 SEEN, Urine WBC 0 SEEN, Ur Squamous Epith Cells 0-5 SEEN, Urine Bacteria 0 SEEN, Urine Mucus 0 SEEN 11/28/23 08:35: WBC 6.5, RBC 4.94, Hgb 14.3, Hct 42.9, MCV 86.8, MCH 28.9, MCHC 33.3, RDW Std Deviation 38.9, RDW Coeff of Jose Antonio 12.1, Plt Count 202, MPV 9.4, Immature Gran % (Auto) 0.200, Neut % (Auto) 69.9, Lymph % (Auto) 24.0, Hendry % (Auto) 4.9, Eos % (Auto) 0.5, Baso % (Auto) 0.5, Absolute Neuts (auto) 4.5, Absolute Lymphs (auto) 1.55, Nucleated RBC % 0, Sodium 135 L, Potassium 3.7, Chloride 103, Carbon Dioxide 15.0 L, Anion Gap 17 H, BUN 23 H, Creatinine 0.76, Estim Creat Clear Calc 88.72, Est GFR (MDRD) Af Amer 114, Est GFR (MDRD) Non-Af 94, BUN/Creatinine Ratio 30.3 H, Glucose 153 H, Calcium 9.1, Serum , Qual NEGATIVE, Acetone Level MODERATE H Micro: Microbiology 11/28/23 08:35 Mucosa - Nose SARS-CoV-2, Influenza & RSV (PCR) - Final ABG Data ABG results: ABG 11/28/23 09:33 Specimen Type TAL Sample Site Not entered VBG pH 7.34 VBG pO2 85 H VBG HCO3 11 L VBG Total CO2 12 L VBG O2 Sat (Calc) 96 H VBG Base Excess -15 L POC Mix VBG pCO2 Pt Tmp 20.8 L O2 Delivery Device Room Air Assessment & Plan Assessment/Plan (1) Diabetic ketoacidosis: (2) Nausea: PLAN: Plan #Euglycemic DKA * Likely due to Jardiance * Patient had a steroid shot a few weeks ago for trigger finger and subsequently her blood sugars were running high. She complained of generalized malaise and weakness and saw her PCP who started her on Jardiance on account of elevated blood sugars. Jardiance was started a couple of days prior to admission. Patient subsequently noted that his symptoms persisted and actually worsened so she checked a urine ketones at home and they were markedly elevated. * Blood sugar on admission was 153. Creatinine 0.76 and anion gap is 17 with bicarb of 15. Sodium is 135 and potassium is 3.7. Serum osmolality is also 309. * Urinalysis showed urine ketones of 150 with urine glucose of thousand. * Serum acetone level was moderate. * Patient started on insulin drip in the ED. Will admit to ICU though her DKA is very mild and anticipate that he will improve quickly, insulin cannot be titrated on the floor so I will admit patient to the ICU. * Continue hydration with IV fluid normal saline and manage as per DKA protocol. * Check BMP every 4 hourly and switch to D5 NS once blood sugars less than 250. Keep patient n.p.o. for now. Can be started on a diet once anion gap closes x 2. * Of note, patient did become hypoglycemic when she got to the ICU and blood sugar checked was 38. Insulin drip was discontinued and patient was placed on D5 half-normal saline. Subsequent ABG showed anion gap had closed the patient started on a diet. * Jardiance discontinued. A1c was checked and this came back at 7.9. * If hypoglycemia does not recur, will resume patient's metformin tomorrow. * #Hypothyroidism: On Synthroid #Hyperlipidemia: On statin #Depression: On sertraline DVT prophylaxis: Lovenox Charges/Coding Visit Charges Inpatient E&M: 57165 Init Hosp L3
[2023-11-28] MEDS: Insulin Lispro 100 UNIT in 0.9% Normal Saline (100mL Bag) 99 ML 5.9 UNIT CONT INF (10:17)
[2023-11-28 10:43] LABS: Bedside Glucose 123 mg/dL (74-106)
[2023-11-28] MEDS: Dextrose 50%-Water 25 GM/50 ML DISP.SYRIN IV (11:35)
[2023-11-28 11:42] LABS: Osmolality, Serum 309 mOsm/KG (275-295)
[2023-11-28] MEDS: Dext 5%-0.45% NS 1,000 ML 150 ML IV (11:42)
[2023-11-28 12:02] LABS: Bedside Glucose 38 mg/dL (74-106)
[2023-11-28 12:15] LABS: Bedside Glucose 193 mg/dL (74-106)
[2023-11-28 12:26] LABS: Anion Gap 8 (5-15); BUN 17 mg/dL (7-18); BUN/Creat Ratio 24.5 RATIO (10-20); Calcium,Total 8.1 mg/dL (8.5-10.1); Chloride 109 mmol/L (98-107); Creatinine, Serum 0.69 mg/dL (0.55-1.02); EST Glomerular Filtration Rate 105 mL/min (>60); Est Glom Filt Rate - Afr Amer 127 mL/min (>60); Estimated Creatinine Clearance 97.72 ml/min; Glucose 156 mg/dL (74-106); Potassium 3.6 mmol/L (3.5-5.1); Sodium Level 137 mmol/L (136-145)
[2023-11-28 12:32] LABS: Hemoglobin A1c 7.9 % (3.8-5.6)
[2023-11-28] MEDS: Insulin Lispro 100 UNIT/ML INSULN.PEN SC (13:21)
[2023-11-28 13:41] LABS: Bedside Glucose 155 mg/dL (74-106)
[2023-11-28 15:27] LABS: Anion Gap 8 (5-15); BUN 15 mg/dL (7-18); BUN/Creat Ratio 23.9 RATIO (10-20); Calcium,Total 8.1 mg/dL (8.5-10.1); Chloride 107 mmol/L (98-107); Creatinine, Serum 0.63 mg/dL (0.55-1.02); EST Glomerular Filtration Rate 118 mL/min (>60); Est Glom Filt Rate - Afr Amer 142 mL/min (>60); Estimated Creatinine Clearance 107.03 ml/min; Glucose 129 mg/dL (74-106); Potassium 3.7 mmol/L (3.5-5.1); Sodium Level 137 mmol/L (136-145)
[2023-11-28] MEDS: metFORMIN HCl 500 MG Tablet PO (17:55)
[2023-11-28] MEDS: 0.9% Normal Saline (1000mL) 1,000 ML 75 ML IV (17:55)
[2023-11-28 18:32] LABS: Bedside Glucose 112 mg/dL (74-106)
[2023-11-28] MEDS: Atorvastatin Calcium 20 MG Tablet PO (22:30)
[2023-11-28 22:55] LABS: Bedside Glucose 135 mg/dL (74-106)
[2023-11-29 05:08] VITALS: BP 102/62; PULSE 70; RESP 18; TEMP 36.6; O2SAT 98
[2023-11-29] MEDS: Levothyroxine 112 MCG Tablet PO (05:13)
[2023-11-29] MEDS: Liothyronine 5 MCG Tablet PO (05:13)
[2023-11-29] MEDS: Sertraline 50 MG Tablet PO (05:13)
[2023-11-29 07:06] LABS: Anion Gap 11 (5-15); BUN 16 mg/dL (7-18); BUN/Creat Ratio 33.2 RATIO (10-20); Calcium,Total 8.2 mg/dL (8.5-10.1); Chloride 109 mmol/L (98-107); Creatinine, Serum 0.48 mg/dL (0.55-1.02); EST Glomerular Filtration Rate 159 mL/min (>60); Est Glom Filt Rate - Afr Amer 193 mL/min (>60); Estimated Creatinine Clearance 140.48 ml/min; Glucose 147 mg/dL (74-106); Sodium Level 139 mmol/L (136-145)
[2023-11-29 07:14] LABS: Bedside Glucose 138 mg/dL (74-106)
[2023-11-29] MEDS: metFORMIN HCl 500 MG Tablet PO (07:43)
[2023-11-29 08:02] VITALS: BP 103/65; PULSE 78; RESP 16; TEMP 36.8; O2SAT 100
[2023-11-29] MEDS: 0.9% Saline Lock 10 ML Syringe IV ×2 (08:26→09:50)
[2023-11-29 09:19] LABS: Bedside Glucose 168 mg/dL (74-106)
[2023-11-29] MEDS: 0.9% Normal Saline (1000mL) 1,000 ML 125 ML IV (09:51)
--- NOTE | 2023-11-29 12:10 | CASEMGMT ---
Addendum entered by Amber Marcos 11/29/23 14:02: 1245: Call placed to Dr Zuniga's office to inquire if she is taking new pt's, and if so, to schedule an appt for pt. Dr Zuniga's office is closed for the day. Pt made aware and states she will f/u with Dr Zuniga's office at a later time. Pt states she would like to complete HCPOA, stating her parents are LNOK and she states she does not get along w/them. SW, Kalee, made aware. Pt made aware if SW unable to complete w/her while @ [facility], she can schedule an appt with SW as an OP. She voices understanding. Original Note: RN?CM?MONOMER RECOVERY OPERATOR?CM?to room to meet with patient for initial transition planning/care coordination?assessment.?RN?CM?introduced self and role at [facility].? Pt voices understanding and consents to?assessment?at this time.? Pt resting in bed in no distress at this time.? Pt is A/O at this time and answers all questions appropriately.?? Care providers, pharmacy, and demographics verified/updated at this time. PCP: PRINCE Hernandez Specialists: none. Pt would like to see Dr Zuniga/endocrinology, but states she called recently and was told Dr Zuniga is not accepting new pt's and inquired if RN CM could assist/check on getting her an appt. [facility]erred [facility] Insurance: Caroline Prescription Benefit:?Yes LNOK: Grandmother, Natalia Cotto Living Arrangements: Lives w/her boyfriend. Independent. Works full-time. Transportation:?Pt states drives self and states no transportation concerns at this time.? DME: Pt has a functioning glucometer w/supplies. HHC/SNF: No hx of either. No needs identified. Pt wishes to return home and states has no concerns with going home at time of discharge.? PLAN:??Home Bharath GALARZAN?RN?CM
[2023-11-29 12:31] LABS: Bedside Glucose 111 mg/dL (74-106)
[2023-11-29 14:47] VITALS: BP 116/78; PULSE 71; RESP 16; TEMP 36.3; O2SAT 97
[2023-11-29 15:52] LABS: Anion Gap 7 (5-15); BUN 15 mg/dL (7-18); Chloride 106 mmol/L (98-107); Creatinine, Serum 0.62 mg/dL (0.55-1.02); EST Glomerular Filtration Rate 118 mL/min (>60); Est Glom Filt Rate - Afr Amer 143 mL/min (>60); Estimated Creatinine Clearance 108.76 ml/min; Glucose 149 mg/dL (74-106); Potassium 4.3 mmol/L (3.5-5.1); Sodium Level 138 mmol/L (136-145)
--- NOTE | 2023-11-29 15:53 | DS.PCM_ITS ---
Providers Date of Admission: 11/28/23 Date of Discharge: 11/29/23 Primary Care Physician: Kash Hernandez, MANAGER LINE-C Reason For Visit: DKA Diagnosis Discharge Diagnosis (1) Diabetic ketoacidosis: Status: Acute Code(s): E11.10 - Type 2 diabetes mellitus with ketoacidosis without coma (2) Nausea: Status: Acute Code(s): R11.0 - Nausea Plan #Euglycemic DKA * Likely due to Jardiance * Patient had a steroid shot a few weeks ago for trigger finger and subsequently her blood sugars were running high. She complained of generalized malaise and weakness and saw her PCP who started her on Jardiance on account of elevated blood sugars. Jardiance was started a couple of days prior to admission. Patient subsequently noted that his symptoms persisted and actually worsened so she checked a urine ketones at home and they were markedly elevated. * Blood sugar on admission was 153. Creatinine 0.76 and anion gap is 17 with bicarb of 15. Sodium is 135 and potassium is 3.7. Serum osmolality is also 309. * Urinalysis showed urine ketones of 150 with urine glucose of thousand. * Serum acetone level was moderate. * Patient started on insulin drip in the ED. Will admit to ICU though her DKA is very mild and anticipate that he will improve quickly, insulin cannot be titrated on the floor so I will admit patient to the ICU. * Continue hydration with IV fluid normal saline and manage as per DKA protocol. * Check BMP every 4 hourly and switch to D5 NS once blood sugars less than 250. Keep patient n.p.o. for now. Can be started on a diet once anion gap closes x 2. * Of note, patient did become hypoglycemic when she got to the ICU and blood sugar checked was 38. Insulin drip was discontinued and patient was placed on D5 half-normal saline. Subsequent ABG showed anion gap had closed the patient started on a diet. * Jardiance discontinued. A1c was checked and this came back at 7.9. * If hypoglycemia does not recur, will resume patient's metformin tomorrow. * #Hypothyroidism: On Synthroid #Hyperlipidemia: On statin #Depression: On sertraline DVT prophylaxis: Lovenox Medications at Discharge Home Medications pen needle, diabetic 32 gauge x /32 (BD Ultra-Fine Angie Pen Needle) #100 ea 03/12/18 Freestyle Lancing device See Rx Instructions .Route .COMPLEX ##1 08/29/18 lancets 28 gauge (FreeStyle Lancets) #60 ea 08/29/18 liothyronine 5 mcg tablet 5 mcg PO DAILY #30 tabs 12/20/18 FreeStyle Lite Strips (blood sugar diagnostic) #120 ea 12/24/18 rosuvastatin 10 mg tablet 10 mg PO DAILY 10/06/22 cholecalciferol (vitamin D3) 25 mcg (1,000 unit) capsule 25 mcg PO DAILY 10/20/22 levothyroxine 112 mcg tablet 112 mcg PO DAILY 10/20/22 pimecrolimus 1 % topical cream 1 applic topical ONCE 10/20/22 doxycycline monohydrate 50 mg capsule 50 mg PO DAILY 11/28/23 sertraline 50 mg tablet 50 mg PO DAILY 11/28/23 metformin 1,000 mg tablet 1,000 mg PO BID #60 tabs 11/29/23 Hospital Course Operations None Procedures None Summary of Care Provided Minutes Spent on Discharge: 55 Hospital Course: BRIT VELASQUEZ, is a 33 F with a PMH as outlined who presents via the ED on 11/28/2023 with a complaint of generalised malaise. She also had nausea, vomiting and dizziness as well as elevated blood sugar for the last several weeks. She got a steroid shot a few weeks ago for a trigger finger and says she noticed her blood sugars were running high afterwards. She saw her PCP and was started on Jardiance 2 days prior to admission and states her blood sugars have been getting better. However she was still not feeling well and admitted to generalised malaise, weakness, nausea and some vomiting. She checked her urine ketones at home as she was concerned about DKA, and it read as high ketones, so she decided to come into the ED. she was diagnosed with type 2 diabetes mellitus about 6 years ago and states that sugars have been quite well-controlled. 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 Her last A1c about a month ago was 6.6. She says she has been told by her primary care doctor that she may have type 1 diabetes mellitus instead of type 2 diabetes mellitus Vitals in the ED were blood pressure 109/85 with pulse rate of 105, respirate rate of 16 and temperature of 97.4 Fahrenheit. She was saturating well on room air. CBC was unremarkable and BMP showed bicarb of 15 with anion gap of 17, with creatinine of 0.76. Urinalysis showed elevated urine glucose as well as elevated urine ketones. Serum ketone level was moderate. Blood sugar on admission was 153. She has been admitted to be managed for DKA likely induced by Jardiance. Her elevated blood sugars had likely been due to the steroids she was she had received. She was initially admitted to the ICU. She was placed on Insulin drip in the ED but this was discontinued when she got up to the ICU be cause she had become hypoglycemic with blood sugar dropping to 38. This corrected with D5 half-normal saline infusion as well as patient being given a sugary drink. Supriya anion gap closed and she was started on a diet. She was transferred out of the ICU. Her Jardiance was discontinued. Patient felt much better and did well. Her A1c was 7.9. Patient was placed on her metformin 1000 mg twice daily. She was counseled that her A1c was likely due to the several weeks of elevated blood sugar as she had had in light of her steroid shot which had caused hyperglycemia. She is to follow-up with her primary care doctor within 1 to 2 weeks and counseled to be checking her sugars at home. Her Jardiance as mentioned was discontinued completely. She was also referred to [facility] to establish care to manage her diabetes. Patient was seen and examined prior to discharge. She felt well and had an uneventful night. Review of systems otherwise negative. Labs and vitals rev iewed. Home medication reviewed and reconciled. Physical Exam Const alert, oriented x3 and no apparent distress General Appearance: cooperative, comfortable and well kempt Orientation / Consciousness: awake Exam Limitations: no limitations HEENT normocephalic, head/scalp atraumatic and hearing grossly normal bilaterally Mouth: oral and palatal mucosa normal Eyes PERRL, EOMs intact bilaterally and conjunctivae normal Neck no lymphadenopathy, supple and no JVD Resp normal respiratory effort, no retractions, no use of accessory muscles and clear to auscultation bilaterally Cardio regular rate, regular rhythm, S1 normal heart sound, S2 normal heart sound and no murmurs GI normal to inspection, nondistended, normoactive bowel sounds, soft to palpation, non-tender and non-distended Extremity normal to inspection, full ROM and no clubbing, cyanosis or edema Skin no rashes or lesions noted Neuro oriented x3, CN's II-XII intact bilaterally, moves all extremities and no focal motor deficits Sensorium / Orientation: awake and alert Motor Exam: strength 5/5 throughout Psych affect normal Weight / BMI Weight Weight: 132 lb 8 oz Body Mass Index (BMI) 23.4 ABG / Lab / Microbiology Data 11/28/23 08:35 11/29/23 15:25 Laboratory: Laboratory Results - last 24 hr 11/28/23 18:09: POC Glucose 112 H 11/28/23 21:35: POC Glucose 135 H 11/29/23 05:12: POC Glucose 138 H 11/29/23 06:01: Sodium 139, Potassium 4.0, Chloride 109 H, Carbon Dioxide 19.0 L , Anion Gap 11, BUN 16, Creatinine 0.48 L, Estim Creat Clear Calc 140.48, Est GFR (MDRD) Af Amer 193, Est GFR (MDRD) Non-Af 159, BUN/Creatinine Ratio 33.2 H, Glucose 147 H, Calcium 8.2 L 11/29/23 08:42: POC Glucose 168 H 11/29/23 12:05: POC Glucose 111 H 11/29/23 15:25: Sodium 138, Potassium 4.3, Chloride 106, Carbon Dioxide 25.0, Anion Gap 7, BUN 15, Creatinine 0.62, Estim Creat Clear Calc 108.76, Est GFR (MDRD) Af Amer 143, Est GFR (MDRD) Non-Af 118, BUN/Creatinine Ratio 24.0 H, Glucose 149 H, Calcium 9.0 Microbiology: Microbiology 11/28/23 08:35 Mucosa - Nose SARS-CoV-2, Influenza & RSV (PCR) - Final D/C Instructions Discharge Diet: 1800 Calorie Control Diet Discharge Activity: Return to Normal Activity Call your doctor if you observe: Fever of 101 or Higher and - (nausea, vomiting and general feeling of unwellness) Meaningful Use Info Meaningful Use Meaningful Use Diagnoses (Choose all that apply): None applicable Ischemic Stroke Statin Dosing Therapy Reference: STATIN DOSE THERAPY REFERENCE: * Patients > 75 years receive moderate or high dose statin therapy. * Patients 75 years or YOUNGER should receive HIGH intensity statin dose unless contraindicated. You will be required to document reason for non-treatment if statin daily dose does not meet guidelines. HIGH DOSE STATIN THERAPY DAILY Atorvastatin > than or = to 40 mg Rosuvastatin > than or = to 20 mg Amlodipine + Atorvastatin > than or = to 2.5/40 mg Ezetimibe + Simvastatin 10/80 mg Simvastatin 80mg Discharge Plan Admission Admit Date/Time: 11/28/23 10:25 Primary Reason for Your Visit: DKA Attending Provider: Deborah Gill Primary Care Provider: Kash Hernandez MANAGER LINE Instructions Patient Instructions: Ketoacidosis Ch Discharge Orders/Prescriptions Prescriptions: New metformin 1,000 mg tablet 1,000 mg PO BID Qty: 60 2RF Continued cholecalciferol (vitamin D3) 25 mcg (1,000 unit) capsule 25 mcg PO DAILY levothyroxine 112 mcg tablet 112 mcg PO DAILY pimecrolimus 1 % cream 1 applic topical ONCE Patient Comments: START APPLYING TO THE AFFECTED LESIONS ON THE FACE ONCE A DAY rosuvastatin 10 mg tablet 10 mg PO DAILY sertraline 50 mg tablet 50 mg PO DAILY doxycycline monohydrate 50 mg capsule 50 mg PO DAILY (DME) pen needle, diabetic [BD Ultra-Fine Angie Pen Needle] 32 gauge x 5/32 needle See Dose Instructions .ROUTE .MEDSUPPLY Qty: 100 11RF Dose Instruction: As directed Rx Instructions: use with insulin pen (DME) lancets [FreeStyle Lancets] 28 gauge misc See Dose Instructions .ROUTE .MEDSUPPLY Qty: 60 11RF Dose Instruction: As directed Rx Instructions: use to check BG bid Freestyle Lancing device See Rx Instructions .ROUTE .COMPLEX Qty: 1 0RF Dose Instruction: use with lancets to corrdinate with Glucometer ; Rx Instructions: use with lancets to corrdinate with Glucometer ; liothyronine 5 mcg tablet 5 mcg PO DAILY Qty: 30 11RF (DME) FreeStyle Lite Strips strip See Dose Instructions .ROUTE .MEDSUPPLY Qty: 120 11RF Dose Instruction: As directed Rx Instructions: use to check BG 4 x qd Discontinued metformin 500 mg tablet 500 mg PO Q4H Jardiance 10 mg tablet 10 mg PO DAILY Referrals / Follow Up: Wilfrid Zuniga MD [Med Staff - Courtesy Staff] - Within 2 Weeks (call to establish endocrinology care for diabetes) Kash Hernandez NP, MANAGER LINE-C [Primary Care Provider] - Within 2 Weeks Disposition Disposition (needs filled in before D/C Order can be placed): Home, Self Care Charges/Coding Visit Charges Inpatient E&M: 76319 Disch Hosp >30min
== END 2023-11-29 17:32 | disposition home or self-care (01) | DRG 639 ==
LOC: ED 10:35 → ICU 10:42 → MS3 17:08
PROVIDERS: Admitting Provider Student in an Organized Health Care Education/Training Program; Emergency Provider Emergency Medicine; PCP Nurse Practitioner Family; Visit Provider Student in an Organized Health Care Education/Training Program
DX: E11.10 Type 2 diabetes mellitus with ketoacidosis without coma (principal); E03.9 Hypothyroidism, unspecified; E11.649 Type 2 diabetes mellitus with hypoglycemia without coma; F32.A Depression, unspecified; E78.5 Hyperlipidemia, unspecified; T38.0X5S Adverse effect of glucocorticoids and synthetic analogues, sequela; Z87.891 Personal history of nicotine dependence; Z79.899 Other long term (current) drug therapy; T38.3X5A Adverse effect of insulin and oral hypoglycemic [antidiabetic] drugs, initial encounter
CPT/HCPCS: 36415; 80048; 81001; 82009; 82803; 82962; 83036; 83930; 84703; 85025; 87631; 94762; 97802; 99283; J7030; A4216; J2405; J7799

== ENCOUNTER → 2023-12-03 | Outpatient (CLI) | payer BC, SELFPAY ==
[2023-12-03 13:05] LABS: Glucose 208 mg/dL (74-106)
[2023-12-04 11:09] LABS: C-Peptide 2.1 ng/mL (1.1-4.4)
== END | disposition home or self-care (01) ==
LOC: LAB 11:30
PROVIDERS: PCP Nurse Practitioner Family; Referring Provider Internal Medicine Endocrinology, Diabetes & Metabolism; Visit Provider Internal Medicine Endocrinology, Diabetes & Metabolism
DX: E11.10 Type 2 diabetes mellitus with ketoacidosis without coma (principal)
CPT/HCPCS: 36415; 82947; 84681

== ENCOUNTER → 2024-07-14 | Outpatient (CLI) | payer BC, SELFPAY ==
[2024-07-14 13:14] LABS: T4 Free Direct 1.13 ng/dL (0.76-1.46)
== END | disposition home or self-care (01) ==
LOC: LAB 12:20
PROVIDERS: PCP Nurse Practitioner Family; Referring Provider Internal Medicine Endocrinology, Diabetes & Metabolism; Visit Provider Internal Medicine Endocrinology, Diabetes & Metabolism
DX: E10.65 Type 1 diabetes mellitus with hyperglycemia (principal); E03.8 Other specified hypothyroidism; E06.3 Autoimmune thyroiditis
CPT/HCPCS: 36415; 84439; 84443

== ENCOUNTER → 2024-09-08 | Outpatient (CLI) | payer BC, SELFPAY ==
[2024-09-08 12:05] LABS: T4 Free Direct 1.15 ng/dL (0.76-1.46)
== END | disposition home or self-care (01) ==
LOC: LAB 10:47
PROVIDERS: PCP Nurse Practitioner Family; Referring Provider Internal Medicine Endocrinology, Diabetes & Metabolism; Visit Provider Internal Medicine Endocrinology, Diabetes & Metabolism
DX: E10.65 Type 1 diabetes mellitus with hyperglycemia (principal); E03.8 Other specified hypothyroidism; E06.3 Autoimmune thyroiditis
CPT/HCPCS: 36415; 84439; 84443

== ENCOUNTER 2024-10-14 19:11 | Inpatient (IN) | payer BC, SELFPAY ==
[2024-10-14] VITALS (8 sets, daily range): BP systolic 119–122; BP diastolic 74–81; PULSE 60–97; RESP 18; TEMP 36.7–37.1; O2SAT 91–100; BMI 32.2
--- NOTE | 2024-10-14 19:26 | PCM.HP.OB ---
HPI - General General Date of Admission: 10/14/24 Date of Service: 10/14/24 HPI Narrative BRIT VELASQUEZ, is a 34 F who presents for induction. Maternal Data Information ORQUIDEA Calculator Estimated Delivery Date Method Current WG Current Estimate 10/25/24 Manual 38w 3d [facility] Medical History (Updated 10/14/24 @ 19:[address] Marcelle Corey MD) Elevated blood pressure reading Type 1 diabetes mellitus with hyperglycemia Heart murmur Palpitations Acne ROMARIO (generalized anxiety disorder) Vaginal bleeding between periods Hypotension PFO (patent foramen ovale) Hemiplegia affecting left nondominant side History of migraine Hx of hypercholesterolemia Diabetes mellitus Chronic migraine Former tobacco use History of alcohol abuse Vitamin D deficiency Hypothyroidism Mitral valve prolapse Hypoglycemia Hyperlipidemia Abnormal laboratory test Hyperglycemia, unspecified Graves disease Sleep apnea Polycystic ovarian disease Home Medications ?Medication ?Instructions ?Recorded ?Last Taken ?Type lancets 28 gauge (FreeStyle #60 ea 08/29/18 Unknown Rx Lancets) blood-glucose meter (FreeStyle 12/03/23 Unknown History Lite Meter kit) BD Ultra-Fine Angie Pen Needle 32 #100 ea 01/16/24 Unknown Rx gauge x 5/32 (pen needle, diabetic) metformin 1,000 mg tablet 1,000 mg PO BID #60 tabs 02/18/24 Unknown Rx aspirin 81 mg tablet,delayed 81 mg PO QDAY 04/07/24 Unknown History release vitamin#30 30 mg iron-10 1 cap PO DAILY 04/07/24 Unknown History mg iron-folic acid 1 mg-omg3 capsule Tresiba FlexTouch U-100 100 20 unit (0.2 mL) subcut DAILY #18 04/14/24 Unknown Rx unit/mL (3 mL) subcutaneous pen mL (insulin degludec) blood-glucose sensor (FreeStyle #6 ea 05/26/24 Unknown Rx Vipin 3 Plus Sensor device) sertraline 100 mg tablet 100 mg PO QDAY #90 tabs 07/14/24 Unknown Rx Dexcom G7 Sensor (blood-glucose #3 ea 07/17/24 Unknown Rx sensor) insulin aspart U-100 100 unit/mL 5 unit (0.05 mL) subcut TID #15 mL 08/25/24 Unknown Rx (3 mL) subcutaneous pen (Novolog FlexPen U-100 Insulin aspart) ferrous sulfate 325 mg (65 mg 325 mg PO QDAY 09/08/24 Unknown History iron) tablet insulin lispro 100 unit/mL 8 unit (0.08 mL) subcut TID #15 mL 09/08/24 Unknown Rx subcutaneous pen (Humalog KwikPen (U-100) Insulin) levothyroxine 125 mcg tablet 125 mcg PO .QD, 1.5 on Sunday10/03/24 Unknown Rx #96 tabs Allergy/AdvReac Type Severity Reaction Status Date / Time adhesive (adhesives) Allergy Intermediate Rash Verified 09/08/24 09:58 Family History Father Hypertension High cholesterol Mother Alcoholism Grandmother Arthritis Grandfather Cancer Surgical History Hx of thyroidectomy Social History household members: significant other Smoking Status: Former smoker quit date: 07/30/16 Tobacco: How many years used: 9 Electronic Cigarette Use: not used how long ago did patient quit smoking: Quit 6-7 years prior, smoked 1 ppd since teen until quit. second hand exposure: No alcohol intake: former details: Former heavy drinker, sober 6-7 years. substance use type: former substance user Date of last use: Jun 2023 used medical marijuana caffeine: No what type of physical activity do you participate in: walking, running, bicycling and weight training frequency: 3-4 times per week seatbelt use: always NST FHR Rate Baby A Baseline: 135 Variability:: Moderate Accelerations:: 15 x 15 Decelerations:: None Uterine Activity:: Irritability Physical Exam Const alert, oriented x3 and no apparent distress GI soft to palpation, non-tender and non-distended Inspection: gravid external exam normal Narrative: cvx - 1/60/-3, intracervical coronel placed Labs Labs Labs: Hct 42.9 % (37-47) Hgb 14.3 g/dL (12.0-15.0) Hep Bs Antigen Negative (Negative) Hepatitis C Ab (EIA) <0.1 s/co ratio (0.0-0.9) Chlamydia DNA (VENUS) Negative (Negative) N.gonorrhoeae DNA (VENUS) Negative (Negative) HIV 1&2 Antibody Non-Reactive (Nonreactive) Miscellaneous Test Assessment & Plan (1) Diabetes mellitus during treated with insulin: PLAN: Plan Admit to L&D Induction - s/p coronel placement. Will start pitocin. GBS negative. Pain - epidural as desired. EFW - less than 4500g and patient with adequate pelvis. DM on insulin - management per diabetic protocol. Patient took Tresiba (long acting insulin) before arriving.
[2024-10-14] MEDS: 0.9% Normal Saline Single 100 ML IV.SOLN. INTRA-UTER (19:44)
[2024-10-14] MEDS: Lactated Ringers 1,000 ML 50 ML IV (19:55)
[2024-10-14 20:06] LABS: Absolute Lymphocyte Count 1.62 X10^3/uL (0.83-4.51); Absolute Neutrophil Count 4.3 X10^3/uL (2.0-7.7); Basophil# 0.03 X10^3/uL; Basophil% 0.5 % (0-1); Eosinophil# 0.03 X10^3/uL; Eosinophils% 0.5 % (0-5); Hematocrit 29.2 % (37-47); Hemoglobin 10.1 g/dL (12.0-15.0); Lymphocyte # 1.62 X10^3/ul (0.83-4.51); Lymphocyte % 24.6 % (19-41); Mean Corp Hgb Conc 34.6 g/dL (32-36); Mean Corpuscular Hgb 29.3 pg (27.0-32.0); Mean Corpuscular Volume 84.6 fL (81-99); Monocyte# 0.51 X10^3/uL; Monocyte% 7.8 % (0-10); NRBC Flagged by Analyzer 0 % (0-5); Neutrophil # 4.33 X10^3/uL (2.7-7.7); Neutrophil % 65.7 % (47-70); Platelet Count 155 K/mm3 (150-450); RBC Distribution Width CV 13.6 % (11.6-14.6); RBC Distribution Width SD 41.1 fl (35.1-43.9); Red Blood Count 3.45 M/mm3 (4.2-5.4); White Blood Count 6.6 K/mm3 (4.4-11.0)
[2024-10-14 20:53] LABS: Syphilis Antibodies Nonreactive (Nonreactive)
[2024-10-14 21:49] LABS: Bedside Glucose 118 mg/dL (74-106)
[2024-10-14 21:49] LABS: Bedside Glucose 172 mg/dL (74-106)
[2024-10-14] MEDS: Oxytocin 15 Units/NS 250ml 15 UNITS/250 ML IV.SOLN 2 UNITS IV (21:54)
[2024-10-14 22:42] LABS: Bedside Glucose 86 mg/dL (74-106)
[2024-10-14 23:03] LABS: Amphetamine Urine NEGATIVE (<1000 ng/mL); Barbiturate Urine NEGATIVE (< 200 ng/mL); Benzodiazepine Urine NEGATIVE (< 200 ng/mL); Buprenorphine Urine NEGATIVE (< 200 ng/mL); Cocaine Urine NEGATIVE (< 300 ng/mL); Fentanyl, Urine NEGATIVE; Methadone Urine NEGATIVE (< 300 ng/mL); Opiates Urine NEGATIVE (< 300 ng/mL); Oxycodone, Urine NEGATIVE (< 100 ng/mL); PCP Urine NEGATIVE (< 25 ng/mL); THC Urine NEGATIVE (< 50 ng/mL)
[2024-10-14] MEDS: Lactated Ringers 1,000 ML 999 ML IV (23:10)
[2024-10-14 23:45] LABS: Bedside Glucose 71 mg/dL (74-106)
[2024-10-15] VITALS (72 sets, daily range): BP systolic 82–141; BP diastolic 53–100; PULSE 59–122; RESP 16–20; TEMP 36.1–37.4; O2SAT 71–100
[2024-10-15] MEDS: fentaNYL-bupivacaine (epidural) 100 ML BAG EPIDURAL ×3 (00:12→11:48)
[2024-10-15] MEDS: Ondansetron 4 MG/2 ML Vial IV (04:46)
[2024-10-15 06:18] LABS: Bedside Glucose 74 mg/dL (74-106)
[2024-10-15] MEDS: Lactated Ringers 1,000 ML 200 ML IV (07:55)
[2024-10-15 08:09] LABS: Bedside Glucose 91 mg/dL (74-106)
--- NOTE | 2024-10-15 08:09 | PCM.PN.BLA ---
Progress Note Patient comfortable with epidural. No new complaints. Physical Exam Narrative Awake alert, no acute distress Cervix 570-2 head well applied, artificial rupture membranes with return of moderate amount of clear fluid. Cervix is mid position and medium consistency and feels slightly edematous. Assessment & Plan Assessment/Plan (1) Diabetes mellitus during treated with insulin: PLAN: Continue Pitocin induction. Patient is comfortable with epidural. Estimated weight is less than 4500 g clinically and pelvis clinically adequate to expect vaginal delivery. heart tones are category 1 with normal baseline and acceleration. Patient's questions were answered to her satisfaction. (2) Type 1 diabetes mellitus with hyperglycemia:
[2024-10-15] MEDS: Amnioinfusion- 0.9% NS 1,000 ML IV.SOLN. 1000 ML INTRA-UTER (08:51)
[2024-10-15] MEDS: LACTATED RINGERS 500 ML 999 ML IV (09:17)
[2024-10-15 12:35] LABS: Bedside Glucose 62 mg/dL (74-106)
[2024-10-15 12:35] LABS: Bedside Glucose 64 mg/dL (74-106)
[2024-10-15 12:35] LABS: Bedside Glucose 59 mg/dL (74-106)
[2024-10-15 12:35] LABS: Bedside Glucose 62 mg/dL (74-106)
--- NOTE | 2024-10-15 14:04 | EX.PCM.OBVAG ---
Assessment & Plan (1) Diabetes mellitus during treated with insulin: PLAN: Decrease insulin levels, sees endocrinology. Continue can continuous glucose monitor (2) Type 1 diabetes mellitus with hyperglycemia: (3) (spontaneous vaginal delivery): (4) Single live : (5) Second degree perineal laceration: Maternal Data Information ORQUIDEA Calculator Estimated Delivery Date Method Current WG Current Estimate 10/25/24 Manual 38w 4d Final ORQUIDEA: 10/24/24 Gestational age: 38 4/7 Vaginal Delivery Maternal Presentation Maternal Presentation: Medically Indicated Induction Type of Induction: Pitocin, Drew Bulb and Amniotomy Vaginal Delivery Information Procedure Performed: Spontaneous Vaginal Delivery Surgeon/Practitioner: Zee Hurt Date of Procedure: 10/15/24 Pre-Procedure Diagnosis: Post-Procedure Diagnosis: same Type of anesthesia: Epidural Special Medications: none Estimated Blood Loss: 400 Time of Delivery: 13:38 Findings Description of procedure: A vigorous female was delivered NAFISA over a second-degree perineal laceration. The remainder the was delivered with maternal pushing and gentle traction only in less than 15 seconds. The Pitocin infusion was initiated for active management of the third stage. The cord was clamped and cut after cord pulsations ceased. The infant was attended to by the waiting nursing staff. The placenta was delivered spontaneously and intact. The cervix and vagina were intact. The second-degree perineal laceration was repaired with 3-0 Vicryl suture in a running standard fashion. Sponge and needle counts were correct. A vaginal sweep was completed by me. Presentation: NAFISA Amniotic Membrane Rupture Type: Artificial Amniotic Fluid Description: Clear Placental Delivery Description: Spontaneous Placenta Disposition: [facility] Specimen collected: No Cord Vessel Description: 3 Vessels Cord Entanglement: None A Gender: Female (Annmarie) (1 minute): 8 (5 minute): 9 Delayed Cord Clamping: Yes Spiritual Care Coordinator role player: No Post Vaginal Deli Medications given after delivery: IV Pitocin Episiotomy Description: None Laceration: 2nd degree Complication Complications: No
[2024-10-15] MEDS: Oxytocin 15 Units/NS 250ml 15 UNITS/250 ML IV.SOLN 83 UNITS IV (14:05)
[2024-10-15 15:05] LABS: Bedside Glucose 85 mg/dL (74-106)
[2024-10-15 15:05] LABS: Bedside Glucose 88 mg/dL (74-106)
[2024-10-15] MEDS: Ibuprofen 600 MG Tablet PO (17:07)
[2024-10-15] MEDS: Insulin Glargine-YFGN 100 UNIT/ML Pen SC (19:19)
[2024-10-15] MEDS: metFORMIN HCl 1,000 MG Tablet 1000 MG PO (21:12)
[2024-10-16] VITALS (7 sets, daily range): BP systolic 91–134; BP diastolic 51–90; PULSE 67–81; RESP 16–18; TEMP 36.4–36.9; O2SAT 96–97
[2024-10-16] MEDS: Ibuprofen 600 MG Tablet PO ×2 (02:12→09:15)
[2024-10-16] MEDS: Levothyroxine 125 MCG Tablet PO (05:03)
[2024-10-16 05:23] LABS: Absolute Lymphocyte Count 1.94 X10^3/uL (0.83-4.51); Absolute Neutrophil Count 6.9 X10^3/uL (2.0-7.7); Basophil# 0.04 X10^3/uL; Basophil% 0.4 % (0-1); Eosinophil# 0.07 X10^3/uL; Eosinophils% 0.7 % (0-5); Hematocrit 25.6 % (37-47); Hemoglobin 8.7 g/dL (12.0-15.0); Lymphocyte # 1.94 X10^3/ul (0.83-4.51); Lymphocyte % 20.3 % (19-41); Mean Corpuscular Volume 85.3 fL (81-99); Monocyte# 0.57 X10^3/uL; NRBC Flagged by Analyzer 0 % (0-5); Neutrophil # 6.89 X10^3/uL (2.7-7.7); Neutrophil % 72.1 % (47-70); Platelet Count 127 K/mm3 (150-450); RBC Distribution Width CV 13.4 % (11.6-14.6); RBC Distribution Width SD 41.3 fl (35.1-43.9); White Blood Count 9.6 K/mm3 (4.4-11.0)
--- NOTE | 2024-10-16 08:52 | PN.OBGYN_ITS ---
Subjective Subjective Patient is doing well. Pain is well-controlled. Ambulating and voiding without difficulty. Denies chest pain, shortness of breath, lightheadedness, dizziness, leg pain. She desires discharge today. Tolerating a diet without nausea or vomiting. Objective Data Objective Data Vital Signs: Vital Signs Temp Pulse Resp BP Pulse Ox O2 Del Method 97.6 F L 72 17 91/51 L 96 Room Air 10/16/24 04:45 10/16/24 04:48 10/16/24 04:45 10/16/24 04:48 10/16/24 04:48 10/16/24 04:45 Oxygen Delivery Method Room Air Weight: 182 lb Body Mass Index (BMI) 32.2 Intake & Output: Intake and Output for Last 24 Hours 10/14/24 10/15/24 10/16/24 23:59 23:59 23:59 Intake Total 1120.70 / 1120.70 2378.80 / 2378.80 Output Total 3660 / 3660 500 / 500 Balance 1120.70 / 1120.70 -1281.20 / -1281.20 -500 / -500 Lab / Micro Data 10/16/24 04:50 Labs: Laboratory Results - last 24 hr 10/15/24 11:10: POC Glucose 62 L 10/15/24 11:28: POC Glucose 62 L 10/15/24 11:47: POC Glucose 59 L 10/15/24 12:16: POC Glucose 64 L 10/15/24 12:52: POC Glucose 85 10/15/24 14:08: POC Glucose 88 10/16/24 04:50: WBC 9.6, RBC 3.00 L, Hgb 8.7 L, Hct 25.6 L, MCV 85.3, MCH 29.0, MCHC 34.0, RDW Std Deviation 41.3, RDW Coeff of Jose Antonio 13.4, Plt Count 127 L, MPV 10.0, Immature Gran % (Auto) 0.500, Neut % (Auto) 72.1 H, Lymph % (Auto) 20.3, [place] % (Auto) 6.0, Eos % (Auto) 0.7, Baso % (Auto) 0.4, Absolute Neuts (auto) 6.9, Absolute Lymphs (auto) 1.94, Nucleated RBC % 0 Physical Exam Const alert and no apparent distress General Appearance: comfortable HEENT normocephalic Resp normal respiratory effort GI soft to palpation and non-distended GI Narrative: ATTP, FF@U-1 Assessment & Plan (1) Second degree perineal laceration: (2) (spontaneous vaginal delivery): PLAN: Patient is day 1 from a vaginal delivery. She desires discharge to home. Discharge instructions reviewed. She has a 1 week follow-up scheduled. She has follow-up with endocrinology. (3) Diabetes mellitus during treated with insulin: (4) Type 1 diabetes mellitus with hyperglycemia:
[2024-10-16] MEDS: metFORMIN HCl 1,000 MG Tablet 1000 MG PO (08:54)
--- NOTE | 2024-10-16 08:55 | DCINST_ITS ---
Discharge Instructions Diet Discharge Diet: No restrictions DC O2, CPAP, BIPAP needs Home O2 Discharge instructions: No Dressing / Incision Discharge Activity: May Drive and May Shower May resume sexual activity in: 6 weeks Weight Bearing Status: Weight bearing as tolerated Lifting Restrictions: nothing heavier than baby Dressing / Incision Call your doctor if you observe: Fever of 101 or Higher, Coldness, Increased Pain, Numbness or Tingling, Inability to urinate, Inability to have a bowel movement, Using more than 1 pad per hour, Shortness of breath, Dizziness, Swelling in the ankles, Chest pain, Increased palpitations (irregular heartbeat), Calf discomfort and Uncontrolled pain Cleanse incision/area with: Soap & Water Follow Up Care When: 1 week 6 weeks Test Results: Test results from this visit will be discussed in further detail at your follow- up appointment, if applicable. Discharge Plan Admission Admit Date/Time: 10/14/24 19:11 Attending Provider: Zee Hurt Primary Care Provider: Kash Hernandez TELECOMMUNICATIONS FIELD ENGINEER Instructions Patient Instructions: After a Vaginal Delivery (WP) Discharge Orders/Prescriptions Prescriptions: Continued (DME) blood-glucose meter [FreeStyle Lite Meter] Kit See Rx Instructions .Route Rx Instructions: As directed PNV #[id number] acid-[id number] 30 mg iron-10 mg iron-1 mg capsule 1 cap PO DAILY sertraline 100 mg tablet 100 mg PO QDAY Qty: 90 1RF ferrous sulfate 325 mg (65 mg iron) tablet 325 mg PO QDAY insulin lispro [Humalog KwikPen Insulin] 100 unit/mL insulin pen 8 unit subcut TID Qty: 15 5RF (DME) lancets [FreeStyle Lancets] 28 gauge misc See Dose Instructions .ROUTE .MEDSUPPLY Qty: 60 11RF Dose Instruction: As directed Rx Instructions: use to check BG bid (DME) pen needle, diabetic [BD Ultra-Fine Angie Pen Needle] 32 gauge x 5/32 needle See Rx Instructions .ROUTE .MEDSUPPLY Qty: 100 3RF Rx Instructions: daily metformin 1,000 mg tablet 1,000 mg PO BID Qty: 60 8RF insulin degludec [Tresiba FlexTouch U-100] 100 unit/mL (3 mL) insulin pen 20 unit subcut DAILY Qty: 18 0RF (DME) FreeStyle Vipin 3 Plus Sensor Device See Rx Instructions .Route Qty: 6 1RF Rx Instructions: As directed (DME) Dexcom G7 Sensor Device See Rx Instructions .Route Qty: 3 6RF Rx Instructions: As directed insulin aspart U-100 [Novolog FlexPen U-100 Insulin] 100 unit/mL (3 mL) insulin pen 5 unit subcut TID Qty: 15 1RF levothyroxine 125 mcg tablet 125 mcg PO .QD, 1.5 on Sunday Qty: 96 1RF Discontinued aspirin 81 mg tablet,delayed release (DR/EC) 81 mg PO QDAY Referrals / Follow Up: Kash Hernandez TELECOMMUNICATIONS FIELD ENGINEER, TELECOMMUNICATIONS FIELD ENGINEER-C [Primary Care Provider] - Disposition Disposition (needs filled in before D/C Order can be placed): Home, Self Care
[2024-10-16] MEDS: Sertraline 100 MG Tablet PO (10:38)
--- NOTE | 2024-10-16 10:44 | CASEMGMT ---
Social Work Brief Assessment - Labor and Delivery Unit Patient Address:[address] [place] [address] [place] [address] Phone number: [phone] Date and Time of Referral: 10/14/242029 Referred By: Dr. Corey Date and time of intervention: 10/16/24, 944 Reason for Referral: Anxiety Sw completed chart review and acknowledges social work consult due to maternal mental health. Sw presented to bedside and introduced self to mother of baby (MOB- Mireya) and father of baby (FOB- Benito). Sw explained reason for sw involvement and completed psychosocial assessment. Informant: Medical record and mother of baby (MOB) and FOB. History: GE is 34 year old female who is 2, para 0- now 1 following labor and delivery of . GE presented to hospital for induction of labor and delivered baby on 10/15/24 via vaginal delivery at 40 weeks gestation. Baby girl, named Annmarie Martell, was born weighing 7lb 2oz with apgars of 8 and 9 at one and five minutes of life, respectfully. GE is bottle feeding baby and states that it is going well. Baby will be followed by Dr. Carson for pediatrics. Sw was welcomed to room by parents. Both parents are gainfully employed outside of the home, and have natural supports in place. Because parents are able to stagger their schedules they only need to have a childcare for a couple of hours a couple of days out of the week. They state that there is an in-home childcare provider who lives next to EDILBERTO's mom that they are able to use. GE states that she does have a mental health history positive for anxiety and depression. GE states that she is prescribed zoloft by her Professor Of Economics. GE disclosed that she is also connected to mental health counseling with Christi Bai, and meets with her on a weekly basis. GE states that she feels as though her mental health was managed during her , and since delivery she feels even better mentally. MOB states that she has healthy and safe coping mechanisms. FOB reports that if MOB would struggle with her mental health history he would be able to recognize that and would know how to help and support her. Sw also discussed MOB substance use history. GE reports that she does have history of alcohol abuse, but this was in her teen years. Sw explained to parents that it is important for parents to utilize healthy and safe coping mechanisms opposed to seeking comfort from drugs or alcohol. Parents express understanding. MOB and FOB report that they have all necessary baby supplies for baby. Assessment: Parents were receptive to welcoming of sw involvement and support. Parents acknowledge the importance of being mindful of their mental health symptoms during this period. MOB is connected to mental health services and supports. FOB was observed to be attentive to MOB and baby. MOB reports to having a renee/ connection with baby. Parents have obtained all necessary baby supplies and have natural supports in place. Plan: Resources provided to MOB including: safe sleep, shaken baby prevention, Help Me Grow, country resources and information on signs and symptoms of baby blues and depression. MOB and baby to be discharged when medically ready. No further needs requested or indicated. Fernando English, AIRCRAFT RIVETER, INFORMATICS SPECIALIST
--- NOTE | 2024-10-22 18:27 | NURSING ---
Follow up phone call: Patient is doing well, bleeding is almost completely done. No signs or symptoms of pp complications. Patient was satisfied with her care. Annmarie is eating well, patient had questions about feeding formula before the time her drier feeder said. [facility] spoke with MARY Arellano and encouraged MOB to stick with feeding plan given by provider but gave info on paced bottle feeding and burping often. MOB had no other questions or concerns.
== END 2024-10-16 17:25 | disposition home or self-care (01) | DRG 807 ==
PROVIDERS: Obstetrics & Gynecology; Admitting Provider Obstetrics & Gynecology; PCP Nurse Practitioner Family; Referring Provider Obstetrics & Gynecology; Visit Provider Obstetrics & Gynecology
DX: O24.02 Pre-existing type 1 diabetes mellitus, in childbirth (principal); Z37.0 Single live birth; E10.65 Type 1 diabetes mellitus with hyperglycemia; E03.9 Hypothyroidism, unspecified; E05.00 Thyrotoxicosis with diffuse goiter without thyrotoxic crisis or storm; Z79.4 Long term (current) use of insulin; E28.2 Polycystic ovarian syndrome; O99.284 Endocrine, nutritional and metabolic diseases complicating childbirth; Z79.84 Long term (current) use of oral hypoglycemic drugs; Z79.82 Long term (current) use of aspirin; Z79.85 Long-term (current) use of injectable non-insulin antidiabetic drugs; O99.344 Other mental disorders complicating childbirth; F41.1 Generalized anxiety disorder; Z79.890 Hormone replacement therapy; Z79.899 Other long term (current) drug therapy; Z87.891 Personal history of nicotine dependence; O70.1 Second degree perineal laceration during delivery; Z3A.38 38 weeks gestation of pregnancy
CPT/HCPCS: 59025; 59050; 80307; 82962; 85025; 86780; 86850; 86900; 86901; 99221; G0378; J2405

== ENCOUNTER → 2025-02-25 | Outpatient (CLI) | payer BC, SELFPAY ==
[2025-02-25 10:22] LABS: AST(SGOT) 24 U/L (<=31); Alanine Aminotransfer ALT/SGPT 20 U/L (<=34); Albumin, Serum 4.2 g/dL (3.5-5.0); Alkaline Phosphatase 45 U/L (35-104); Anion Gap 11 (5-15); BUN 15 mg/dL (4-19); BUN/Creat Ratio 20.3 RATIO (10-20); Calcium,Total 9.6 mg/dL (7.6-11.0); Carbon Dioxide 23.7 mmol/L (21.0-32.0); Chloride 104 mmol/L (98-108); Cholesterol 217 mg/dL (<=200); Globulin 2.9 g/dL (2.2-4.2); Glucose 85 mg/dL (70-99); Low Density Lipoprotein Calc. 125 mg/dL; Potassium 4.1 mmol/L (3.3-5.1); Triglycerides 109 mg/dL; Very Low Density Lipoprotein 22 mg/dL (5-40); cholesterol:hdl ratio screen 3.08
[2025-02-25 11:35] LABS: Vitamin D,25 Hydroxy 34.2 ng/mL (30-100)
[2025-02-25 12:03] LABS: Microalbumin,Random Urine < 12.0 mg/L (<20 mg/L)
[2025-02-25 13:42] LABS: Creatinine, Urine (random) 154.00 mg/dL (28.00-217.00)
== END | disposition home or self-care (01) ==
LOC: LAB 08:45
PROVIDERS: PCP Nurse Practitioner Family; Referring Provider Nurse Practitioner Family; Visit Provider Nurse Practitioner Family
DX: E10.9 Type 1 diabetes mellitus without complications (principal)
CPT/HCPCS: 36415; 80053; 80061; 82043; 82306; 82570; 84439; 84443

== ENCOUNTER → 2025-07-25 | Outpatient (CLI) | payer BC, SELFPAY ==
--- OUTSIDE RECORDS SUMMARY | 2025-07-25 08:35 | XMS RPT_ITS | CCD ---
Author Organization [facility] Care Team Providers Care Bolt Cutter Name Role Phone CINDY PINTO APRN, CNP Primary Care Phys ician Jennifer DUKES, ERNST Alexander Attending Provider David GREEN CHAINER, GREEN CHAINER-C Cindy Ortiz Primary Care Pr ovider Dr. Barron Lopez Emergency Provider [phone] Danni Kearns Admit Provider Dr. Danni Kearns Attending Provider Dr. Danni Kearns Other Provider Dr. Leonardo Vega Attending Provider Dr. Teddy Leach Attending Provider Dr. Teddy Leach Other Provider ERNST Hale Attending Provider David GREEN CHAINER, PRINCE-C Cindy Ortiz Primary Care Pr ovider Dr. Barron Lopez Emergency Provider Dr. Danni Kearns Admit Provider Dr. Danni Kearns Attending Provider Dr. Danni Kearns Other Provider Dr. Leonardo Vega Attending Provider Dr. Teddy Leach Attending Provider Dr. Teddy Leach Other Provider Cindy Hernandez CNP Primary Care Provider [phone] CINDY HERNANDEZ Attending Unavailable DAVID, CINDY Primary Care Unavailable INDIRA FERNANDO Attending Unavailable DAVID, CINDY D Primary Care Unavailable [place] GREEN CHAINER, GREEN CHAINER-C Cindy Ortiz Primary Care Pr ovider Dr. Caden Greenwood Emergency Provider Jairo, Dr. Deborah Day Admit Provider Korjerry, Dr. Deborah Day Attending Provider Korjerry, Dr. Deborah Day Other Provider David GREEN CHAINER, GREEN CHAINER-C Cindy Ortiz Referring Provi richie Dr. Isabel Zuniga Attending Provider Cindy Hernandez CNP Primary Care Provider [phone] MARY GIORDANO Attending Unavailable DAVIDCINDY MORENO Primary Care Unavailable DAVID, CINDY Guthrie Primary Care Unavailable David GREEN CHAINER-C, Cindy Ortiz Primary Care Provi richie David GREEN CHAINER-CCindy Referring Provider King CRISTINA, Dr. Yuen Attending Provider Dr. Isabel Zuniga MD Referring Provider Dr. Edilma Goncalves MD Admit Provider Dr. Edilma Goncalves MD Attending Provider Dr. Eidlma Goncalves MD Referring Provider CINDY HERNANDEZ D Primary Care Unavailable TASHA, KARMON Attending Unavailable DAVID, CINDY D Primary Care Unavailable GLORIA, BAMBI Referring Unavailable TASHA, KAREDDIE Attending Unavailable DAVID, CINDY D Primary Care Unavailable GLORIA, BAMBI Referring Unavailable DAVID, CINDY D Primary Care Unavailable GLORIA, BAMBI Referring Unavailable DAVID, CINDY D Primary Care Unavailable DAVID, CINDY D Primary Care Unavailable TASHA, KARMON Referring Unavailable DAVID, CINDY D Primary Care Unavailable ANNA BRAY Attending Unavailable DAVID, CINDY D Primary Care Unavailable DANAE GALDAMEZONY P Referring Unavailable DAVID, CINDY D Primary Care Unavailable TIJOSEPH, GIUSEPPE P Referring Unavailable DAVID, CINDY D Primary Care Unavailable TIZZANO, GIUSEPPE P Referring Unavailable DAVID, CINDY D Primary Care Unavailable TASHA, KARMON Referring Unavailable DAVID, CINDY D Primary Care Unavailable CYNTHIA GLORIAICA Attending Unavailable DAVID, CINDY D Primary Care Unavailable TASHA, KARMON Referring Unavailable DAVID, CINDY D Primary Care Unavailable TASHA, KARMON Referring Unavailable DAVID, CINDY D Primary Care Unavailable TASHA, KARMON Referring Unavailable TASHA KARMON Attending Unavailable DAVID, CINDY D Primary Care Unavailable TASHA, KARMON Referring Unavailable DAVID, CINDY D Primary Care Unavailable TASHA, KARMON Referring Unavailable TASHA, KARMON Attending Unavailable DAVID, CINDY D Primary Care Unavailable TIZZANO, GIUSEPPE P Referring Unavailable DAVID, CINDY D Primary Care Unavailable DAVID, CINDY D Primary Care Unavailable ANNA BRAY Attending Unavailable DAVID, CINDY D Primary Care Unavailable TIZZANO, GIUSEPPE P Referring Unavailable TASHA KARMON Attending Unavailable DAVID, CINDY D Primary Care Unavailable CYNTHIA GLORIAICA Referring Unavailable DAVID, CINDY D Primary Care Unavailable CYNTHIA GLORIAICA Referring Unavailable DAVID, CINDY D Primary Care Unavailable CYNTHIA GLORIAICA Referring Unavailable DAVID, CINDY D Primary Care Unavailable DAVID, CINDY D Primary Care Unavailable DAVID, CINDY D Primary Care Unavailable EDILMA GONCALVES Attending Unavailable DAVID, CINDY D Primary Care Unavailable TASHA KARMON Attending Unavailable DAVID, CINDY D Primary Care Unavailable TASHA, KARMON Referring Unavailable DAVID, CINDY D Primary Care Unavailable TASHA, KARMON Referring Unavailable PAIGE GIUSEPPE P Attending Unavailable DAVID, CINYD D Primary Care Unavailable FAIZAN BAMBI Referring Unavailable TASHA KARMON Attending Unavailable DAVID, CINDY D Primary Care Unavailable FAIZAN, BAMBI Referring Unavailable MIAH CONNORS Attending Unavailable DAVID, CINDY D Primary Care Unavailable TASHA KARMON Attending Unavailable DAVID, CINDY D Primary Care Unavailable TASHA KARMON Attending Unavailable David GREEN CHAINER-C, Cindy Ortiz Primary Care Provi richie David GREEN CHAINER-Cindy Lopez Referring Provider Dr. Isabel Zuniga MD Attending Provider Jhon GREEN CHAINER-CJayne Attending Provider Jhon GREEN CHAINERJayne Whatley Referring Provider [phone] David GREEN CHAINER, Cindy Ortiz Primary Care Unav ailable Efrain, Isabel Attending Unavailable Efrain, Isabel Referring Unavailable [place] GREEN CHAINER, Cindy Ortiz Primary Care Unav ailable Jayne Ferreira Attending Unavailable Jhon, Jayne Referring Unavailable David GREEN CHAINER, Cindy Santoronis Primary Care Unav ailable [place] GREEN CHAINER, Cindy Santoronis Referring Unav ailable Efrain, Isabel Attending Unavailable David GREEN CHAINER, Cindy Santoronis Referring Unav ailable Efrain, Isabel Attending Unavailable [place] GREEN CHAINER, Cindy Santoronis Primary Care Unav ailable David GREEN CHAINER, Cindy Santoronis Referring Unav ailable David GREEN CHAINER, Cindy Angel Primary Care Unav ailable Efrain, Isabel Attending Unavailable David GREEN CHAINER, Cindy Ortiz Referring Unav ailable Efrain, Isabel Attending Unavailable David GREEN CHAINER, Cindy Santoronis Primary Care Unav ailable Edilma Goncalves Admitting Unavailable Blu, Edilma Attending Unavailable Blu, Edilma Referring Unavailable [place] GREEN CHAINER, Cindy Angel Primary Care Unav ailable Efrain, Isabel Referring Unavailable Efrain, Isabel Attending Unavailable David GREEN CHAINER, Cindy Ortiz Primary Care Unav ailable Allergies Allergy Classification Reported Allergen(s) Allergy Type Date of Onset Reaction(s) Facility (20 sources) [facility] [Other] Propensity to adverse reactions 2 Other: See Comments [facility] Work Phone: (3 sources) OTHER; Translations: [OTHER] Propensity to adverse reactions (disorder) 2 [facility] Other [facility] (20 sources) Adhesive agent; Translations: [ADHESIVE] Propensity to adverse reactions to drug [address] [facility] (1 source) Adhesive agent Drug allergy (disorder) 5 [facility] Repository Medications Current Medications Medication Drug Class(es) Dates Sig (Normalized) Sig (Original) Ascorbic Acid (1 source) Vitamin C Start: 11-01-2023 Vitamin C qDay, 0 Refill(s) Start Date: 11/01/23 Status: Ordered azelaic acid 0.15 mg/mg topical gel (12 sources) Start: 07-07-2024 Azelaic Acid 15 % gel APPLY A THIN LAYER TO THE FACE ONCE DAILY, OPPOSITE OF CLINDAMYCIN. 07/07/2024 Active Blood-Glucose Meter (FREESTYLE INSULINX) [place] (20 sources) Start: 07-13-2017 Blood-Glucose Meter (FREESTYLE INSULINX) [place] Dx: Type 2 DM - Uncontrolled E11.65 1 Each 07/13/2017 Active Start: 07-13-2017 Blood-Glucose Meter (FREESTYLE INSULINX) [place] Dx: Type 2 DM - Uncontrolled E11.65 1 Each 0 07/13/2017 Active Comment on above: Dx: Type 2 DM - Unco ntrolled E11.65 Blood-Glucose Meter (Freestyle Lite Meter) kit (4 sources) Start: 03-10-2025 Blood-Glucose Meter (Freestyle Lite Meter) kit Active 0 .Route 1 0 March 10, 2025 7:46am Type 1 diabetes mellitus without complication Type 1 diabetes mellitus without complications As directed Start: 12-03-2023 End: 03-10-2025 Blood-Glucose Meter (Freesty le Lite Meter) kit Discontinued 0 .Route December 03, 2023 12:00am March 10, 2025 7:47am As directed Start: 12-03-2023 Blood-Glucose Meter (Freestyle Lite Meter) kit Active 0 .Route December 03, 2023 12:00am As directed Start: 12-03-2023 Blood-Glucose Meter (Freestyle Lite Meter) kit Active 0 .ROUTE December 03, 2023 12:00am As directed Blood-Glucose Sensor (Dexcom G7 Sensor) device (2 sources) Start: 07-17-2024 Blood-Glucose Sensor (Dexcom G7 Sensor) device Active 0 .Route 3 July 17, 2024 1:00am As directed Start: 07-17-2024 Blood-Glucose Sensor (Dexcom G7 Sensor) device Active 0 .Route 3 July 17, 2024 1:00am As directed clindamycin 0.01 mg/mg topical gel (20 sources) Lincosamide Antibacterial Start: 07-07-2024 clindamycin (CLEOCIN-T) 1 % gel APPLY A THIN LAYER TO THE FACE ONCE DAILY, OPPOSITE OF AZELAIC ACID. 07/07/2024 Active Start: 02-23-2016 End: 08-13-2017 take 2 capsules by mouth four times daily Clindamycin Hcl 150 MG capsule Discontinued 300 mg PO 4 TIMES DAILY 80 0 February 23, 2016 12:00am August 13, 2017 2:12pm Start: 02-23-2016 End: 08-13-2017 take 300 mg by mouth four times daily Clindamycin Hcl Discontinued 300 MG PO 4 TIMES DAILY 80 February 23, 2016 12:00am August 13, 2017 2:12pm Desogestrel / Ethinyl Estradiol (20 sources) Progestin, Estrogen Start: 02-06-2025 take 1 tablet by mouth once daily, then take 0.15 tablet by mouth once Desogestrel-Ethinyl Estradiol (ENSKYCE) 0.15-0.03 mg per tablet Take 1 tablet by mouth once daily. 84 tablet 3 02/06/2025 Active Start: 11-20-2024 take 0.15 tablet by mouth once daily Desogestrel-Ethinyl Estradiol (Apri) 0.15-0.03 mg tablet Active 1 {tbl} PO daily November 20, 2024 12:00am Start: 11-18-2024 End: 02-06-2025 take 1 tablet by mouth once daily, then take 0.15 tablet by mouth once Desogestrel-Ethinyl Estradiol (ENSKYCE) 0.15-0.03 mg per tablet Take 1 tablet by mouth once daily. 84 tablet 3 11/18/2024 02/06/2025 Discontinued Start: 11-18-2024 take 1 tablet by yaneth th once daily, then take 0.15 tablet by mouth once Desogestrel-Ethinyl Estradiol (ENSKYCE) 0.15-0.03 mg per tablet Take 1 tablet by mouth once daily. 84 tablet 3 11/18/2024 Active Start: 11-04-2023 End: 03-17-2024 take 1 tablet by mouth once ENSKYCE 0.15-0.03 mg per t ablet Take 1 tablet by mouth every afternoon. 11/04/2023 03/17/2024 Discontinued (Course of therapy completed) Start: 11-04-2023 take 1 tablet by mouth once EN SKYCE 0.15-0.03 mg per tablet Take 1 tablet by mouth every afternoon. 0 11/04/2023 Active Start: 04-18-2019 take 1 tablet by ayneth th once daily Enskyce 0.15 mg-0.03 mg oral tablet Dose = 1 tab(s), Oral, qDay, # 28 tab(s), 0 Refill(s) Start Date: 04/18/19 Status: Ordered Start: 10-08-2018 Desogestrel-Et hinyl Estradiol (Enskyce) 0.15-0.03 mg tablet Active 1 TABLET PO DAILY October 08, 2018 12:17pm Start: 10-08-2018 End: 10-26-2022 take 0.15 tablet by mouth once daily Desogestrel-Ethinyl Estradiol (Enskyce) 0.15-0.03 mg tablet Discontinued 1 {tbl} PO DAILY October 08, 2018 12:00am October 26, 2022 10:33am On Hold: Hold for now until she talks to Credit Underwriter Start: 10-08-2018 End: 10-26-2022 Desogestrel-Ethinyl Estradio l (Enskyce) 0.15-0.03 mg tablet Discontinued 1 TABLET PO DAILY October 08, 2018 12:00am October 26, 2022 10:33am On Hold: Hold for now until she talks to Credit Underwriter Start: 10-08-2018 Desogestrel-Et hinyl Estradiol (Enskyce) 0.15-0.03 mg tablet Active 1 TABLET PO DAILY October 08, 2018 12:00am On Hold: Hold for now until she talks to Credit Underwriter Start: 10-08-2018 Desogestrel-Et hinyl Estradiol (Enskyce) 0.15-0.03 mg tablet Active 1 TABLET PO DAILY October 07, 2018 11:00pm On Hold: Hold for now until she talks to Credit Underwriter Start: 10-08-2018 Desogestrel-Et hinyl Estradiol (Enskyce) 0.15-0.03 mg tablet Active 1 TABLET PO DAILY October 07, 2018 11:00pm End: 03-17-2024 take 1 tablet by mouth once daily desogestrel-ethinyl estradiol (ENSKYCE ORAL) Take 1 tablet by mouth once daily. 03/17/2024 Discontinued (Course of therapy completed) take 1 tablet by yaneth th once daily desogestrel-ethinyl estradiol (ENSKYCE ORAL) Take 1 tablet by mouth once daily. 0 Active Comment on above: Take 1 tablet by yaneth th once daily. Take 1 tablet by yaneth th every afternoon. DEXCOM G7 SENSOR sri (12 sources) Start: 07-22-2024 DEXCOM G7 SENSOR sri USE DIRECTED, REPLACE EVERY 10 DAYS 07/22/2024 Active DME MISCellaneous (5 sources) Start: 06-27-2022 DME MISCellaneous See Instructions, Free Style Lite per Insurance, # 1 EA, 0 Refill(s), [facility]acy: [facility] #[id number], 160, cm, 06/27/22 10:20:00 EST, Height, 59.7, kg, 06/27/22 10:20:00 EST, Dosing Weight Start Date: 06/27/22 Status: Ordered Start: 04-22-2020 DME MISCellane ous See Instructions, Free Style Lite per Insurance, # 1 EA, 0 Refill(s), 161, cm, 04/22/20 8:00:00 EDT, Height, 59.3, kg, 04/22/20 8:00:00 EDT, Dosing Weight Start Date: 04/22/20 Status: Ordered Start: 04-22-2020 DME MISCellane ous See Instructions, Darion Metrix test strips to steffen 3 times daily One box has 2 bottle of 50., # 1 EA, 3 Refill(s), 161, cm, 04/22/20 8:00:00 EDT, Height, 59.3, kg, 04/22/20 8:00:00 EDT, Dosing Weight Start Date: 04/22/20 Status: Ordered ENSKYCE 28 TABLET (1 source) Start: 11-01-2023 ENSKYCE 28 TAB LET ENSKYCE 28 TABLET, 0 Refill(s), 55.1 Start Date: 11/01/23 Status: Ordered ferrous sulfate 325 mg oral tablet (20 sources) Start: 09-08-2024 take 1 tablet by mouth once daily Ferrous Sulfate 325 mg (65 mg iron) tablet Active 325 mg PO daily September 08, 2024 1:00am Start: 07-03-2024 End: 02-06-2025 take 1 tablet by mouth once daily ferrous sulfate (SLOW FE) 140 mg (45 mg iron) TbER Take 1 tablet by mouth once daily. 07/03/2024 02/06/2025 Discontinued (Other) 3 ml insulin aspart, human 100 unt/ml pen injector (20 sources) Insulin Analog Start: 07-03-2024 insulin aspart U-100 (NOVOLOG FLEXPEN U-100 INSULIN) 100 unit/mL (3 mL) Takes before meals per endocrinology. 07/03/2024 Active Start: 02-15-2024 End: 01-02-2025 Insulin Aspart U-100 (Novolo g Flexpen U-100 Insulin) 100 unit/mL (3 mL) insulin pen Active 5 U SC THREE TIMES A DAY 15 January 02, 2025 3:54pm 3 ml insulin degludec 100 unt/ml pen injector (20 sources) Insulin Analog Start: 07-03-2024 insulin deglud ec (TRESIBA FLEXTOUCH U-100) 100 unit/mL (3 mL) injection pen Take per endocrinology. 07/03/2024 Active Start: 04-14-2024 End: 11-20-2024 Insulin Degludec (Tresiba Fl extouch U-100) 100 unit/mL (3 mL) insulin pen Active 20 U SC DAILY 18 November 20, 2024 11:01am Start: 12-06-2023 End: 04-14-2024 Insulin Degludec (Tresiba Fl extouch U-100) 100 unit/mL (3 mL) insulin pen Discontinued 10 U SC DAILY 9 January 16, 2024 12:49pm April 14, 2024 2:10pm 3 ml insulin lispro 100 unt/ml pen injector (2 sources) Insulin Analog Start: 09-08-2024 Insulin Lispro (Humalog Kwikpen Insulin) 100 unit/mL insulin pen Active 8 U SC THREE TIMES A DAY 15 September 08, 2024 1:00am levothyroxine sodium 0.112 mg oral tablet (20 sources) l-Thyroxine Start: 11-20-2024 take 1 tablet by mouth once daily Levothyroxine 112 mcg tablet Active 112 ug PO daily 90 November 20, 2024 12:00am Start: 07-14-2024 End: 11-20-2024 take 1 tablet by mouth once Levothyroxine 125 mcg tabl et Discontinued 125 ug PO .QD, 1.5 on Sunday 96 October 03, 2024 5:00pm November 20, 2024 11:04am Start: 11-01-2023 levothyroxine 112 mcg (0.112 mg) oral tablet Dose : 112 mcg = 1 tab(s), Oral, qDay, # 30 tab(s), 4 Refill(s), [facility]acy: [facility] #[id number], Hypothyroidism, 160, cm, 11/01/23 9:12:00 EDT, Height, kg, 11/01/23 9:12:00 EDT, Dosing Weight Start Date: 11/01/23 Status: Ordered Start: 10-20-2022 End: 07-14-2024 take 1 tablet by mouth once daily Levothyroxine 112 mcg tablet Discontinued 112 ug PO DAILY January 16, 2024 1:38pm July 14, 2024 4:06pm Start: 10-07-2022 End: 10-20-2022 take 1 tablet by mouth once daily Levothyroxine 125 mcg tablet Discontinued 125 ug PO DAILY 30 October 07, 2022 1:00am October 20, 2022 4:01pm Start: 2022 End: 10-20-2022 Levothyroxine 100 mcg tablet Discontinued 112 ug PO DAILY 2022 9:06pm October 20, 2022 4:00pm Start: 2022 End: 10-20-2022 take 112 ug by mouth once daily Levothyroxine Disconti nued 112 MCG PO DAILY 2022 9:06pm October 20, 2022 4:00pm Start: 09-26-2022 levothyroxine 112 mcg (0.112 mg) oral tablet Dose : 112 mcg = 1 tab(s), Oral, qDay, # 30 tab(s), 3 Refill(s), [facility]acy: [facility] #[id number], Hypothyroidism, 160, cm, 09/26/22 10:36:00 EST, Height, kg, 09/26/22 10:36:00 EST, Dosing Weight Start Date: 09/26/22 Status: Ordered Start: 06-27-2022 levothyroxine 112 mcg (0.112 mg) oral tablet Dose : 112 mcg = 1 tab(s), Oral, qDay, # 30 tab(s), 3 Refill(s), Pharmacy: [facility] #[id number], Hypothyroidism, 160, cm, 06/27/22 10:20:00 EST, Height, kg, 06/27/22 10:20:00 EST, Dosing Weight Start Date: 06/27/22 Status: Ordered Start: 07-26-2021 End: 04-22-2022 levothyroxine 112 mcg (0.112 mg) oral tablet Dose : 112 mcg = 1 tab(s), Oral, qDay, # 90 tab(s), 2 Refill(s), Pharmacy: [facility] [address], Hypothyroidism, 160, cm, 07/26/21 8:00:00 EST, Height, kg, 07/26/21 8:00:00 EST, Dosing Weight Start Date: 07/26/21 Stop Date: 04/22/22 Status: Ordered Start: 08-08-2018 End: 09-26-2018 take 6.5 tablets by mouth every week Levothyroxine 100 mcg tablet Discontinued 0 PO DAILY 30 August 08, 2018 3:54pm September 26, 2018 1:45pm 6.5 tabs q week PO DAILY; Start: 08-08-2018 End: 08-08-2018 take 1 tablet by mouth once daily, then take 0.5 tablet by mouth once daily Levothyroxine Discontinued 0 PO DAILY 0 August 08, 2018 3:40pm August 08, 2018 3:55pm 1 tab qd, extra 1/2 tab on Sunday PO DAILY; Start: 02-15-2018 End: 03-17-2024 take 1 tablet by mouth once daily Levothyroxine 100 mcg tablet Discontinued 100 ug PO DAILY 30 December 20, 2018 3:42pm 2022 9:06pm take 2 tablets by mo uth once daily before breakfast levothyroxine (SYNTHROID) 112 mcg tablet Take 125 mcg by mouth daily before breakfast. One tablet daily except for sunday she takes 1 1/2 tablets and Sunday is 2 tablets Active Comment on above: Take 100 mcg by mout h daily before breakfast. Take 112 mcg by mout h daily before breakfast. liothyronine sodium 0.005 mg oral tablet (20 sources) l-Triiodothyronine Start: 11-01-2023 End: 03-30-2024 liothyronine 5 mcg oral tablet Dose : 5 mcg = 1 tab(s), Oral, Daily, # 30 tab(s), 4 Refill(s), [facility]: [facility] #[id number], Hypothyroidism, 160, cm, 11/01/23 9:12:00 EDT, Height, kg, 11/01/23 9:12:00 EDT, Dosing Weight Start Date: 11/01/23 Stop Date: 03/30/24 Status: Ordered Start: 06-27-2022 End: 01-24-2023 liothyronine 5 mcg oral tabl et Dose : 5 mcg = 1 tab(s), Oral, Daily, # 30 tab(s), 3 Refill(s), Pharmacy: [facility] #[id number], Hypothyroidism, 160, cm, 09/26/22 10:36:00 EST, Height, kg, 09/26/22 10:36:00 EST, Dosing Weight Start Date: 09/26/22 Stop Date: 01/24/23 Status: Ordered Start: 07-26-2021 End: 04-22-2022 liothyronine 5 mcg oral tabl et Dose : 5 mcg = 1 tab(s), Oral, Daily, # 90 tab(s), 2 Refill(s), [facility]acy: [id number] [facility], Hypothyroidism, 160, cm, 07/26/21 8:00:00 EST, Height, kg, 07/26/21 8:00:00 EST, Dosing Weight Start Date: 07/26/21 Stop Date: 04/22/22 Status: Ordered Start: 05-15-2018 End: 04-07-2024 take 1 tablet by mouth once daily Liothyronine 5 mcg tablet Discontinued 5 ug PO DAILY 28 06December 20, 2018 3:42pm April 07, 2024 2:52pm Comment on above: Take 5 mcg by mouth once daily. meloxicam 15 mg oral tablet (1 source) Nonsteroidal Anti-inflammatory Drug Start: 4 End: Mobic 15 mg oral tablet Dose : 15 mg = 1 tab(s), Oral, qDay, X 10 day(s), # 10 tab(s), 0 Refill(s), 11/11/23 9:49:00 AM EDT, Pharmacy: [facility] #[id number], Pain of right hand (tendonitis 3rd PIP of right hand), 160, cm, 11/01/23 9:12:00 EDT, Height, kg, 11/01/23 9:12:00 EDT, Dosing Weight Start Date: 11/01/23 Stop Date: 11/11/23 Status: Ordered metFORMIN hydrochloride 1000 mg oral tablet (20 sources) Biguanide Start: End: take 1 tablet by mouth twice daily Metformin 1,000 mg tablet Active 1000 mg PO TWICE A DAY 60 8 November 24, 2024 7:12am Start: 10-26-2022 End: 11-29-2023 take 1 tablet by mouth every four hours Metformin 500 mg tablet Discontinued 500 mg PO Q4H October 26, 2022 10:32am November 29, 2023 3:49pm Start: 10-20-2022 End: 10-26-2022 take 1 tablet by mouth once daily Metformin 500 mg tablet Discontinued 500 mg PO DAILY October 20, 2022 4:00pm October 26, 2022 10:33am Start: 10-20-2022 End: 10-26-2022 take 1 tablet by mouth once daily Metformin 500 mg tablet extended release 24 hr Discontinued 500 mg PO DAILY October 20, 2022 12:00am October 26, 2022 10:32am Start: 09-26-2022 End: 01-24-2023 take 1 tablet by mouth twice daily Metformin 500 mg Tablet Discontinued 500 mg PO TWICE A DAY 2022 1:00am October 20, 2022 4:02pm Start: 07-10-2022 End: 09-08-2022 MetFORMIN (Eqv-Glucophage XR ) 500 mg oral tablet, EXTENDED RELEASE Dose : 500 mg = 1 tab(s), Oral, BID, # 180 tab(s), 0 Refill(s), [facility]acy: [facility] #[id number], 160, cm, 06/27/22 10:20:00 EST, Height, kg, 06/27/22 10:20:00 EST, Dosing Weight Start Date: 07/10/22 Stop Date: 09/08/22 Status: Ordered Start: 04-26-2021 End: 01-21-2022 Glucophage XR 500 mg oral ta blet, EXTENDED RELEASE Dose : 500 mg = 1 tab(s), Oral, BID, # 180 tab(s), 2 Refill(s), Pharmacy: [facility] [address], DM type 2, goal HbA1c Start Date: 04/26/21 Stop Date: 01/21/22 Status: Ordered Start: 04-26-2021 End: 01-21-2022 Glucophage XR 500 mg oral ta blet, EXTENDED RELEASE Dose : 500 mg = 1 tab(s), Oral, BID, # 180 tab(s), 2 Refill(s), Pharmacy: [facility] [address], DM type 2, goal HbA1c Start Date: 04/26/21 Stop Date: 01/21/22 Status: Ordered Start: 10-22-2018 End: 03-17-2024 take 1 tablet by mouth twice daily at mealtime metFORMIN ER (GLUCOPHAGE XR) 500 mg 24 hr tablet Take 1 tablet by mouth twice daily with meals. 60 tablet 2 10/22/2018 03/17/2024 Discontinued (Course of therapy completed) Start: 08-08-2018 End: 08-08-2018 Metformin 500 mg tablet exte nded release 24hr Discontinued 0 PO TWICE A DAY 90 August 08, 2018 1:07pm August 08, 2018 3:52pm Prediabetes 2 tabs q am, 1 tab q pm PO BID; Start: 06-19-2018 End: 08-08-2018 take 1 tablet by mouth twice daily Metformin 500 mg tablet extended release 24hr Discontinued 500 mg PO TWICE A DAY 60 June 19, 2018 1:00am August 08, 2018 1:15pm Prediabetes Start: 10-22-2017 End: 01-21-2018 take 1 tablet by mouth twice daily Metformin 500 mg tablet Discontinued 500 mg PO TWICE A DAY 60 December 26, 2017 9:09am January 21, 2018 11:12am Type 1 diabetes mellitus without complications e10.9 Start: 08-13-2017 End: 10-22-2017 take 1 tablet by mouth once daily Metformin 500 mg tablet Discontinued 500 mg PO daily August 13, 2017 1:00am October 22, 2017 8:26am take 1 tablet by yaneth th once daily at breakfast metFORMIN (GLUCOPHAGE) 1,000 mg tablet Take 1,000 mg by mouth daily with breakfast. Active Comment on above: Take 1 tablet by yaneth th twice daily with meals. sertraline 100 mg oral tablet (20 sources) Serotonin Reuptake Inhibitor Start: End: take 2 tablets by mouth once daily Sertraline 50 mg tablet Discontinued 100 mg PO DAILY July 14, 2024 12:38pm July 14, 2024 12:46pm Start: 04-18-2024 End: 03-11-2025 take 1 tablet by mouth once daily Sertraline 100 mg tablet Active 100 mg PO daily March 11, 2025 9:10am Start: 11-01-2023 End: 07-14-2024 take 1 tablet by mouth once daily Sertraline 50 mg tablet Discontinued 50 mg PO DAILY November 28, 2023 12:00am July 14, 2024 12:38pm Comment on above: Take 50 mg by mouth once daily. spironolactone 50 mg oral tablet (1 source) Aldosterone Antagonist Start: 04-26-2021 spironolactone 50 mg oral tablet Dose : 50 mg = 1 tab(s), Oral, qDay, # 30 tab(s), 0 Refill(s) Start Date: 04/26/21 Status: Ordered Vitamin B Complex 100 (1 source) Start: 11-01-2023 Vitamin B Complex 100 0 Refill(s) Start Date: 11/01/23 Status: Ordered Vitamin D3 (3 sources) Start: 10-25-2021 Vitamin D3 Dose : 1,000 unit(s) = 1 tab(s), Oral, Daily, 0 Refill(s) Start Date: 10/25/21 Status: Ordered Completed/Discontinued Medications Medication Drug Class(es) Dates Sig (Normalized) Sig (Original) acetaminophen 325 mg / HYDROcodone bitartrate 5 mg oral tablet (12 sources) Opioid Agonist Start: 02-23-2016 End: 08-13-2017 Hydrocodone-Acetami nophen 1 TABLET tablet Discontinued 1 {tbl} PO EVERY 4 HOURS NEEDED as needed for Pain February 23, 2016 12:00am August 13, 2017 2:12pm Start: 02-23-2016 End: 08-13-2017 take 1 tablet by mouth every four hours as needed Hydrocodone-Acetaminophen Discontinued 1 TABLET PO EVERY 4 HOURS NEEDED February 23, 2016 12:00am August 13, 2017 2:12pm acetaminophen 325 mg / oxyCODONE hydrochloride 5 mg oral tablet (12 sources) Opioid Agonist Start: 02-15-2018 End: 02-25-2018 Oxycodone-Acetaminophen 1 TABLET tablet Discontinued 1 - 2 {tbl} PO EVERY 4 HOURS NEEDED as needed for Pain 26 11February 15, 2018 12:00am February 25, 2018 9:34am Thyrotoxicosis, unspecified without thyrotoxic crisis or storm Start: 02-15-2018 End: 02-25-2018 take 1 tablet by mouth every four hours as needed Oxycodone-Acetaminophen Discontinued 1 - 2 TABLET PO EVERY 4 HOURS NEEDED 26 11February 15, 2018 12:00am February 25, 2018 9:34am aspirin 81 mg delayed release oral tablet (20 sources) Platelet Aggregation Inhibitor, Nonsteroidal Anti-inflammatory Drug Start: 04-22-2024 End: 10-21-2024 take 2 tablets by mouth once daily aspirin, enteric coated (ECOTRIN LOW STRENGTH) 81 mg EC tablet Indications: Supervision of high risk in first trimester Take 2 tablets by mouth once daily. 90 tablet 3 04/22/2024 10/21/2024 Discontinued Start: 03-17-2024 End: 10-16-2024 take 1 tablet by mouth once daily Aspirin 81 mg tablet,delayed release (DR/EC) Discontinued 81 mg PO daily April 07, 2024 12:00am October 16, 2024 8:54am pregnacy Start: 10-26-2022 End: 11-28-2023 take 1 tablet by mouth once daily Aspirin 81 mg tablet,delayed release (DR/EC) Discontinued 81 mg PO DAILY October 26, 2022 12:00am November 28, 2023 8:47am benzonatate 100 mg oral capsule (6 sources) Non-narcotic Antitussive Start: 07-07-2018 End: 03-17-2024 take 2 capsules by mouth three times daily as needed benzonatate (TESSALON PERLE) 100 mg capsule Indications: Bronchitis Take 2 capsules by mouth three times daily as needed. 30 capsule 10/26/2018 03/17/2024 Discontinued (Course of therapy completed) Comment on above: Take 2 capsules by m outh three times daily as needed. betamethasone 3 mg/ml / betamethasone acetate 3 mg/ml injectable suspension (1 source) Corticosteroid Start: 11-13-2023 End: 11-13-2023 betamethasone acetate-betamethas one sodium phosphate 3 mg injection (CELESTONE) Blood-Glucose Sensor (Freestyle Vipin 3 Plus Sensor) device (4 sources) Start: 05-26-2024 End: 11-20-2024 Blood-Glucose Sensor (Freestyle Vipin 3 Plus Sensor) device Discontinued 0 .Route 6 May 26, 2024 7:12am November 20, 2024 11:01am As directed Start: 05-26-2024 Blood-Glucose Sensor (Freestyle Vipin 3 Plus Sensor) device Active 0 .Route May 26, 2024 7:12am As directed Start: 05-22-2024 End: 05-26-2024 Blood-Glucose Sensor (Freest yle Vipin 3 Plus Sensor) device Discontinued 0 .Route 6 May 22, 2024 12:00am May 26, 2024 7:12am As directed Start: 05-22-2024 End: 05-26-2024 Blood-Glucose Sensor (Freest yle Vipin 3 Plus Sensor) device Discontinued 0 .Route May 22, 2024 12:00am May 26, 2024 7:12am As directed Blood-Glucose Sensor (Freest yle Vipin 3 Sensor) device (7 sources) Start: 01-16-2024 End: 05-22-2024 Blood-Glucose Sensor (Freest yle Vipin 3 Sensor) device Discontinued 0 .Route 6 January 16, 2024 12:48pm May 22, 2024 8:45am As directed Start: 01-16-2024 End: 05-22-2024 Blood-Glucose Sensor (Freest yle Vipin 3 Sensor) device Discontinued 0 .Route January 16, 2024 12:48pm May 22, 2024 8:45am As directed Start: 01-13-2024 End: 01-16-2024 Blood-Glucose Sensor (Freest yle Vipin 3 Sensor) device Discontinued 0 .Route 6 January 13, 2024 9:36pm January 16, 2024 12:50pm As directed Start: 01-13-2024 End: 01-16-2024 Blood-Glucose Sensor (Freest yle Vipin 3 Sensor) device Discontinued 0 .Route January 13, 2024 9:36pm January 16, 2024 12:50pm As directed Start: 12-03-2023 End: 01-13-2024 Blood-Glucose Sensor (Freest yle Vipin 3 Sensor) device Discontinued 0 .Route 2 December 03, 2023 12:00am January 13, 2024 9:36pm As directed Start: 12-03-2023 End: 01-13-2024 Blood-Glucose Sensor (Freest yle Vipin 3 Sensor) device Discontinued 0 .Route 2 December 03, 2023 12:00am January 13, 2024 9:36pm As directed Start: 12-03-2023 Blood-Glucose Sensor (Freestyle Vipin 3 Sensor) device Active 0 .Route 2 December 03, 2023 12:00am As directed brompheniramine maleate 0.4 mg/ml / dextromethorphan hydrobromide 2 mg/ml / pseudoephedrine hydrochloride 6 mg/ml oral solution (3 sources) alpha-Adrenergic Agonist, Uncompetitive I-arrqrn-R-aspartate Receptor Antagonist, Sigma-1 Agonist Start: 04-18-2023 End: 03-17-2024 take 10 mL by mouth every six hours as needed Ezxbkauuzgtsbad-Jcflkahwl-QN (BROMFED DM) 2-30-10 mg/5 mL syrup Take 10 mL by mouth four times daily as needed. 200 mL 04/18/2023 03/17/2024 Discontinued (Course of therapy completed) Comment on above: Take 10 mL by mouth four times daily as needed. cholecalciferol 0.025 mg oral capsule (20 sources) Vitamin D Start: 10-20-2022 End: 12-03-2023 take 1 capsule by mouth once daily Cholecalciferol (Vitamin D3) 25 mcg (1,000 unit) capsule Discontinued 25 ug PO DAILY October 20, 2022 12:00am December 03, 2023 10:22am Start: 10-09-2018 End: 10-20-2022 take 1 capsule by mouth every week Cholecalciferol (Vitamin D3) 50,000 unit capsule Discontinued 0 .ROUTE .COMPLEX 14 0 January 21, 2019 4:01pm October 20, 2022 3:59pm take 1 capsule by mouth every week End: 03-17-2024 take 1 tablet by mouth once daily cholecalciferol (VITAMIN D) 1,000 unit tab tablet Take 1,000 Units by mouth once daily. 03/17/2024 Discontinued (Course of therapy completed) Comment on above: Take 1,000 Units by mouth once daily. doxycycline monohydrate 50 mg oral capsule (6 sources) Tetracycline-cla ss Drug Start: 11-28-2023 End: 04-07-2024 take 1 capsule by mouth once daily Doxycycline Monohydrate 50 mg capsule Discontinued 50 mg PO DAILY November 28, 2023 12:00am April 07, 2024 2:52pm Start: 11-01-2023 End: 11-02-2023 doxycycline monohydrate 50 m g oral capsule Dose : 50 mg = 1 cap(s), Oral, q6h, # 4 cap(s), 0 Refill(s), 55.1 Start Date: 11/01/23 Stop Date: 11/02/23 Status: Ordered empagliflozin 10 mg oral tablet (5 sources) Sodium-Glucose Cotransporter 2 Inhibitor Start: 11-28-2023 End: 11-29-2023 take 1 tablet by mouth once daily Empagliflozin (Empagliflozin 10 Mg Tablet) 10 mg tablet Discontinued 10 mg PO DAILY November 28, 2023 12:00am November 29, 2023 3:49pm Enskyce 0.15 mg-0.03 mg oral tablet (1 source) Start: 04-18-2019 take 1 tablet by mouth once daily Enskyce 0.15 mg-0.03 mg oral tablet Dose = 1 tab(s), Oral, qDay, # 28 tab(s), 0 Refill(s) Start Date: 04/18/19 Status: Ordered Norgestimate-Ethiny l Estradiol (12 sources) Progestin, Estrogen Start: 02-08-2018 End: 10-08-2018 Norgestimate-Ethiny l Estradiol Discontinued 1 EACH PO DAILY February 08, 2018 9:32am October 08, 2018 12:17pm Start: 02-08-2018 End: 10-08-2018 Norgestimate-Ethinyl Estradi ol 1 EACH tablet Discontinued 1 NMA PO DAILY February 08, 2018 12:00am October 08, 2018 12:17pm Start: 02-08-2018 End: 10-08-2018 Norgestimate-Ethinyl Estradi ol Discontinued 1 EACH PO DAILY February 08, 2018 12:00am October 08, 2018 12:17pm Start: 02-08-2018 End: 10-08-2018 Norgestimate-Ethinyl Estradi ol Discontinued 1 EACH PO DAILY February 07, 2018 11:00pm October 08, 2018 11:17am folic acid 1 mg oral tablet (20 sources) Start: 07-03-2024 End: 10-21-2024 take 1 tablet by mouth once daily folic acid 1 mg tablet Take 1 tablet by mouth once daily. 07/03/2024 10/21/2024 Discontinued Freestyle Lancing device (20 sources) Start: 08-29-2018 End: 12-03-2023 Freestyle Lancing device Discontinued 0 .ROUTE .COMPLEX 1 0 August 29, 2018 2:38pm December 03, 2023 10:23am use with lancets to corrdinate with Glucometer ; Start: 08-29-2018 End: 12-03-2023 Freestyle Lancing device Dis continued 0 .ROUTE .COMPLEX 1 August 29, 2018 2:38pm December 03, 2023 10:23am use with lancets to corrdinate with Glucometer ; Start: 08-29-2018 Freestyle Lanc ing device Active 0 .ROUTE .COMPLEX 1 August 29, 2018 1:38pm use with lancets to corrdinate with Glucometer ; Start: 08-29-2018 Freestyle Lanc ing device Active 0 .ROUTE .COMPLEX 1 August 29, 2018 2:38pm use with lancets to corrdinate with Glucometer ; Start: 08-29-2018 End: 08-29-2018 Freestyle Lancing device Dis continued 0 .ROUTE .COMPLEX 1 August 29, 2018 12:05pm August 29, 2018 2:38pm use with lancets to corrdinate with Glucometer ; Start: 08-29-2018 End: 08-29-2018 Freestyle Lancing device Dis continued 0 .ROUTE .COMPLEX 1 0 August 29, 2018 1:00am August 29, 2018 2:38pm use with lancets to corrdinate with Glucometer ; Start: 08-29-2018 End: 08-29-2018 Freestyle Lancing device Dis continued 0 .ROUTE .COMPLEX 1 August 29, 2018 1:00am August 29, 2018 2:38pm use with lancets to corrdinate with Glucometer ; Start: 08-29-2018 End: 08-29-2018 Freestyle Lancing device Dis continued 0 .ROUTE .COMPLEX August 29, 2018 12:00am August 29, 2018 1:38pm use with lancets to corrdinate with Glucometer ; glipiZIDE er 2.5 mg 24 hr extended release oral tablet (20 sources) Sulfonylurea Start: 08-06-2018 End: 10-08-2018 take 1 tablet by mouth once daily Glipizide 2.5 mg tablet extended release 24hr Discontinued 2.5 mg PO DAILY 30 August 06, 2018 3:58pm October 08, 2018 1:01pm Type 2 diabetes mellitus without complications 3 ml insulin glargine 100 unt/ml pen injector (20 sources) Insulin Analog Start: 02-08-2018 End: 09-02-2018 Insulin Glargine 100 UNIT/ML insulin pen Discontinued 3 U SC daily February 08, 2018 9:34am September 02, 2018 11:13am Start: 12-10-2017 End: 02-08-2018 Insulin Glargine (Basaglar K wikpen U-100 Insulin) 100 unit/mL (3 mL) insulin pen Discontinued 10 U SC daily 15 December 10, 2017 12:00am February 08, 2018 9:34am Type 2 diabetes mellitus without complications Lancing Device (20 sources) Start: 08-08-2018 End: 08-29-2018 Lancing Device Discontinued 0 .ROUTE .MEDSUPPLY August 08, 2018 2:52pm August 29, 2018 11:08am use to check BG. needs to coordinate with freestyle lite meter Start: 08-08-2018 End: 08-29-2018 Lancing Device Discontinued 0 .ROUTE .MEDSUPPLY August 08, 2018 3:52pm August 29, 2018 12:08pm use to check BG. needs to coordinate with freestyle lite meter Start: 08-08-2018 End: 08-08-2018 Lancing Device Discontinued 0 .ROUTE .MEDSUPPLY August 08, 2018 1:07pm August 08, 2018 3:52pm use to check BG. needs to coordinate with freestyle lite meter Start: 08-08-2018 End: 08-08-2018 Lancing Device Discontinued 0 .ROUTE .MEDSUPPLY August 08, 2018 1:00am August 08, 2018 3:52pm use to check BG. needs to coordinate with freestyle lite meter Start: 08-08-2018 End: 08-08-2018 Lancing Device Discontinued 0 .ROUTE .MEDSUPPLY 1 August 08, 2018 12:00am August 08, 2018 2:52pm use to check BG. needs to coordinate with freestyle lite meter Lancing Device misc (4 sources) Start: 08-08-2018 End: 08-29-2018 Lancing Device misc Disconti nued 0 .ROUTE .MEDSUPPLY 1 0 August 08, 2018 3:52pm August 29, 2018 12:08pm Type 2 diabetes mellitus without complications e11.9 use to check BG. needs to coordinate with freestyle lite meter Start: 08-08-2018 End: 08-29-2018 Lancing Device misc Disconti nued 0 .ROUTE .MEDSUPPLY 1 August 08, 2018 3:52pm August 29, 2018 12:08pm use to check BG. needs to coordinate with freestyle lite meter Start: 08-08-2018 End: 08-08-2018 Lancing Device misc Disconti nued 0 .ROUTE .MEDSUPPLY 1 0 August 08, 2018 1:00am August 08, 2018 3:52pm Type 2 diabetes mellitus without complications e11.9 use to check BG. needs to coordinate with freestyle lite meter Start: 08-08-2018 End: 08-08-2018 Lancing Device misc Disconti nued 0 .ROUTE .MEDSUPPLY 1 August 08, 2018 1:00am August 08, 2018 3:52pm use to check BG. needs to coordinate with freestyle lite meter 10 ml lidocaine hydrochloride 10 mg/ml injection (1 source) Antiarrhythmic, Amide Local Anesthetic Start: 11-13-2023 End: 11-13-2023 lidocaine (PF) 10 mg/mL (1 %) 0.5 mL injection (XYLOCAINE) magnesium oxide 420 mg oral tablet (18 sources) Start: 07-03-2024 End: 10-03-2024 take 1 tablet by mouth once daily Magnesium Oxide 420 mg tab Take 1 tablet by mouth once daily. 07/03/2024 10/03/2024 Discontinued medroxyPROGESTERone acetate 400 mg/ml injectable suspension (5 sources) Progestin Start: 08-13-2017 End: 10-22-2017 inject 400 mg by intramuscular injection every three months Medroxyprogesterone (Depo-Provera) 400 mg/mL solution Discontinued 400 MG IM .q 3 months August 13, 2017 1:00am October 22, 2017 8:15am Medroxyprogesterone (Depo-Provera) 400 mg/mL solution (7 sources) Start: 08-13-2017 End: 10-22-2017 inject 400 mg by intramuscular injection every three months Medroxyprogesterone (Depo-Provera) 400 mg/mL solution Discontinued 400 mg IM .q 3 months August 13, 2017 1:00am October 22, 2017 8:15am Start: 08-13-2017 End: 10-22-2017 inject 400 mg by intramuscular injection every three months Medroxyprogesterone (Depo-Provera) 400 mg/mL solution Discontinued 400 MG IM .q 3 months August 13, 2017 1:00am October 22, 2017 8:15am methIMAzole 5 mg oral tablet (20 sources) Thyroid Hormone Synthesis Inhibitor Start: 12-10-2017 End: 03-18-2018 take 1 tablet by mouth once daily Methimazole 5 mg tablet Discontinued 5 mg PO daily 30 3 December 26, 2017 6:53pm March 18, 2018 1:30pm Thyrotoxicosis, unspecified without thyrotoxic crisis or storm Start: 10-11-2017 End: 12-10-2017 take 1 tablet by mouth twice daily Methimazole 5 mg tablet Discontinued 5 mg PO TWICE A DAY 60 2 October 11, 2017 12:00am December 10, 2017 10:43am Thyrotoxicosis, unspecified without thyrotoxic crisis or storm Mona-3 Fatty Acids, FISH OIL, (FISH OIL) 360-1,200 mg cap (2 sources) End: 03-17-2024 take 1 capsule by mouth once daily at breakfast Mona-3 Fatty Acids, FISH OIL, (FISH OIL) 360-1,200 mg cap Take 1 capsule by mouth daily with breakfast. 03/17/2024 Discontinued (Course of therapy completed) take 1 capsule by mo uth once daily at breakfast Mona-3 Fatty Acids, FISH OIL, (FISH OIL ) 360-1,200 mg cap Take 1 capsule by mouth daily with breakfast. 0 Active Comment on above: Take 1 capsule by mo uth daily with breakfast. pimecrolimus 10 mg/ml topical cream (12 sources) Calcineurin Inhibitor Immunosuppressant Start: 10-20-2022 End: 12-03-2023 Pimecrolimus 1 % cream Discontinued 1 NMA TOPICAL ONCE October 20, 2022 12:00am December 03, 2023 10:22am Start: 10-20-2022 End: 12-03-2023 Pimecrolimus Discontinued 1 APPLIC TOPICAL ONCE October 20, 2022 12:00am December 03, 2023 10:22am Start: 10-21-2020 pimecrolimus 1 % topical cream Apply 1 sheree, Topical, BID, # 15 gram(s), 0 Refill(s), Cream, 59.9 Start Date: 10/21/20 Status: Ordered Start: 10-21-2020 pimecrolimus 1 % topical cream Apply 1 sheree, Topical, BID, # 15 gram(s), 0 Refill(s), Cream, 59.9 Start Date: 10/21/20 Status: Ordered Pnv #15-Rqsa-Vvajs Acid-Omeg a3 30 mg iron-10 mg iron-1 mg capsule (2 sources) Start: 04-07-2024 End: 11-20-2024 Pnv #14-Crmt-Kpfnn Acid-Omeg a3 30 mg iron-10 mg iron-1 mg capsule Discontinued 1 NMA PO DAILY April 07, 2024 12:00am November 20, 2024 10:46am diabetes Start: 04-07-2024 Pnv #30-Iron-F olic Acid-Omega3 30 mg iron-10 mg iron-1 mg capsule Active 1 NMA PO DAILY April 07, 2024 12:00am PNV no.95/ferrous fum/folic ac ( ORAL) (18 sources) End: 10-21-2024 PNV no.95/ferrous fum/folic ac ( ORAL) Take by mouth. 10/21/2024 Discontinued PNV no.95/ferrou s fum/folic ac ( ORAL) Take by mouth. Active no122/iron/folic ac id ( MULTI ORAL) (12 sources) End: 07-03-2024 no122/iron/folic ac id ( MULTI ORAL) Indications: Supervision of high risk in first trimester Take by mouth. 07/03/2024 Discontinued no122/i tayler/folic acid ( MULTI ORAL) Indications: Supervision of high risk in first trimester Take by mouth. Active no122/i tayler/folic acid ( MULTI ORAL) Take by mouth. Active rosuvastatin calcium 10 mg oral tablet (18 sources) HMG-CoA Reductase Inhibitor Start: 09-26-2022 End: 04-07-2024 take 1 tablet by mouth once daily Rosuvastatin 10 mg tablet Discontinued 10 mg PO DAILY 2022 1:00am April 07, 2024 2:52pm Start: 06-27-2022 End: 10-25-2022 rosuvastatin 5 mg oral table t Dose : 5 mg = 1 tab(s), Oral, qDay, # 30 tab(s), 3 Refill(s), [id number], Hyperlipidemia LDL goal Start Date: 06/27/22 Stop Date: 10/25/22 Status: Ordered Start: 07-26-2021 End: 02-21-2022 rosuvastatin 5 mg oral table t Dose : 5 mg = 1 tab(s), Oral, qDay, # 30 tab(s), 6 Refill(s), Pharmacy: [facility]1953 [facility], Hyperlipidemia LDL goal Start Date: 07/26/21 Stop Date: 02/21/22 Status: Ordered Comment on above: Take 1 tablet by yaneth th every afternoon. vitamin b complex capsule (2 sources) End: 03-17-2024 take 1 capsule by mouth once daily vitamin b complex capsule Take 1 capsule by mouth once daily. 03/17/2024 Discontinued (Course of therapy completed) take 1 capsule by mouth once yasemin ly vitamin b complex capsule Take 1 capsule by mouth once daily. 0 Active Comment on above: Take 1 capsule by mo uth once daily. Problems Active Problems Problem Classification Problem Date Documented Date Episodic/Chronic Alcohol-related disorders (12 sources) Alcohol abuse; Translations: [Alcohol abuse, uncomplicated] 2022 Chronic Anxiety disorders (20 sources) Generalized anxiety disorder; Translations: [Generalized anxiety disorder] Onset: 03-17-2024 10-12-2022 Chronic Cardiac and circulatory congenital anomalies (20 sources) Patent foramen ovale; Translations: [Patent foramen ovale] Onset: 03-17-2024 10-12-2022 Chronic Cardiac dysrhythmias (12 sources) Palpitations; Translations: [Palpitations] 08-05-2020 Episodic Comment on above: (2019) Holter Monito r SUMMARY: 1. Baseline rhythm is sinus with normal TX/QRS/QT intervals. Average HR 74 bpm. Minimum HR 50 bpm. Maximum HR 184 bpm at 11:22 on 05/30/2020 (classified as sinus tachycardia). 2. No atrial fibrillation detected. Premature atrial complex (PAC) burden <1%. No supraventricular arrhythmias. 3. Premature ventricular complex (PVC) burden <1% (total of 10,486 ventricular ectopic beats). No ventricular arrhythmias. 4. No significant pauses. 5. The patient triggered the device 7 times. Five times were for skipped beat showing sinus with a PVC; 2 times for chest pain at rest showing sinus tachycardia at HR 117, 125 bpm. INTERPRETATION: Unremarkable Cardionet Monitor. No arrhythmias were detected. The patient had infrequent, but occasionally symptomatic, PVCs. Chest pain at rest correlated with sinus tachycardia. Complications of surgical procedures or medical care (20 sources) History of total thyroidectomy; Translations: [Postprocedural hypothyroidism] Onset: 03-17-2024 03-17-2024 Chronic Contraceptive and procreative management (4 sources) Patient encounter status; Translations: [Encounter for other general counseling and advice on contraception] Onset: 11-18-2024 11-18-2024 Episodic Diabetes mellitus with complications (15 sources) Diabetic ketoacidosis; Translations: [Type 2 diabetes mellitus with ketoacidosis without coma] Onset: 11-20-2024 11-28-2023 Chronic Diabetes mellitus without complication (20 sources) Type 2 diabetes mellitus; Translations: [Type 1 diabetes mellitus without complication] Onset: 11-01-2023 04-17-2019 Chronic Comment on above: initiated basaglar i nsulin due to low c peptide and john 65 antibodies. Instructed on use of insulin pen. Doing an excellent job of control and feels good. Confident in self.. JOHN + Diabetes mellitus without complication (18 sources) Hyperglycemia; Translations: [Hyperglycemia, unspecified] 06-23-2018 Episodic Diabetes or abnormal glucose tolerance complicating ; childbirth; or the puerperium (20 sources) Pre-existing type 1 diabetes mellitus in ; Translations: [Pre-existing type 1 diabetes mellitus, in , first trimester] Onset: 03-17-2024 Resolved: 10-21-2024 03-17-2024 Chronic Diabetes or abnormal glucose tolerance complicating ; childbirth; or the puerperium (1 source) Gestational diabetes mellitus; Translations: [Gestational diabetes mellitus in , insulin controlled] 10-03-2024 Episodic Disorders of lipid metabolism (20 sources) Hyperlipidemia; Translations: [Hyperlipidemia, unspecified] Onset: 03-17-2024 04-18-2019 Chronic Heart valve disorders (12 sources) Mitral valve prolapse; Translations: [Nonrheumatic mitral (valve) prolapse] 10-08-2018 Chronic Heart valve disorders (4 sources) Heart murmur 08-05-2020 Episodic Comment on above: . Echo Summary: 1. Left ventricle: The cavity size is normal. Wall thickness is normal. Systolic function is normal. The estimated ejection fraction is 55-60%. Wall motion is normal; there are no regional wall motion abnormalities. Normal diastolic function. 2. Right ventricle: The RV systolic pressure by Doppler is 17 mm Hg. 3. Right atrium: The estimated right atrial pressure is 3 mm Hg Hemorrhage during ; abruptio placenta; placenta previa (1 source) Antepartum hemorrhage; Translations: [Hemorrhage in early , unspecified] 03-27-2024 Episodic Immunizations and screening for infectious disease (19 sources) Contact with and (suspected) exposure to other viral communicable diseases; Translations: [Contact with or suspected exposure to other viral communicable disease] 2022 Episodic Menstrual disorders (2 sources) Mid-cycle bleeding 10-12-2022 Chronic Nausea and vomiting (8 sources) Nausea; Translations: [Nausea] 11-28-2023 Episodic Nonspecific chest pain (8 sources) Chest pain; Translations: [Chest pain, unspecified] 10-26-2022 Episodic Nutritional deficiencies (16 sources) Vitamin D deficiency; Translations: [Vitamin D deficiency, unspecified] 10-17-2019 Chronic Nutritional deficiencies (12 sources) Vitamin deficiency; Translations: [Vitamin deficiency, unspecified] 10-08-2018 Episodic OB-related trauma to perineum and vulva (3 sources) Second degree perineal laceration; Translations: [Second degree perineal laceration during delivery] 10-15-2024 Episodic Other circulatory disease (12 sources) Low blood pressure; Translations: [Hypotension, unspecified] 08-05-2020 Episodic Other circulatory disease (8 sources) Elevated blood pressure; Translations: [Elevated blood-pressure reading, without diagnosis of hypertension] 10-26-2022 Episodic Comment on above: states years ago Other complications of (2 sources) Uterine size for dates discrepancy; Translations: [Uterine size-date discrepancy, first trimester] Onset: 03-17-2024 03-17-2024 Episodic Other connective tissue disease (11 sources) Transient neurological symptoms; Translations: [Other symptoms and signs involving the nervous system] 2022 Episodic Other connective tissue disease (3 sources) Other symptoms and signs involving the nervous system; Translations: [Other symptoms involving nervous and musculoskeletal systems] 2022 Episodic Other connective tissue disease (1 source) Triggering of digit; Translations: [Trigger finger, right middle finger] 11-13-2023 Episodic Other connective tissue disease (1 source) Trigger finger, right middle finger; Translations: [Trigger middle finger of right hand] Onset: 11-13-2023 Episodic Other endocrine disorders (12 sources) Polycystic ovary; Translations: [Polycystic ovarian syndrome] 06-23-2018 Chronic Other endocrine disorders (12 sources) Hypoglycemia; Translations: [Hypoglycemia, unspecified] 2022 Chronic Other inflammatory condition of skin (20 sources) Rosacea; Translations: [Rosacea, unspecified] Onset: 03-17-2024 03-17-2024 Chronic Other nervous system disorders (10 sources) H/O: migraine; Translations: [Personal history of other diseases of the nervous system and sense organs] 2022 Episodic Other nervous system disorders (1 source) Personal history of other diseases of the nervous system and sense organs; Translations: [Personal history of other disorders of nervous system and sense organs] 10-07-2022 Episodic Other nutritional; endocrine; and metabolic disorders (11 sources) History of hypercholesterolemia; Translations: [Personal history of other endocrine, nutritional and metabolic disease] 2022 Episodic Other nutritional; endocrine; and metabolic disorders (1 source) Overweight in adulthood with body mass index of 25 or more but less than 30 11-01-2023 Episodic Other skin disorders (4 sources) Acne 10-17-2019 Episodic Other upper respiratory infections (15 sources) Upper respiratory infection; Translations: [Acute upper respiratory infection, unspecified] 2022 Episodic Paralysis (2 sources) Hemiplegia of left nondominant side 10-12-2022 Chronic Residual codes; unclassified (12 sources) Sleep apnea; Translations: [Sleep apnea, unspecified] 02-15-2018 Chronic Residual codes; unclassified (2 sources) Serum/plasma protein finding 09-26-2022 Episodic Residual codes; unclassified (2 sources) Gestation period, 13 weeks; Translations: [13 weeks gestation of ] 04-22-2024 Episodic Residual codes; unclassified (2 sources) Gestation period, 19 weeks; Translations: [19 weeks gestation of ] 06-03-2024 Episodic Residual codes; unclassified (2 sources) Gestation period, 23 weeks; Translations: [23 weeks gestation of ] 07-03-2024 Episodic Residual codes; unclassified (1 source) 13 weeks gestation of ; Translations: [13 weeks gestation of ] Onset: 07-08-2024 Episodic Residual codes; unclassified (2 sources) Gestation period, 27 weeks; Translations: [27 weeks gestation of ] 07-31-2024 Episodic Residual codes; unclassified (2 sources) Gestation period, 31 weeks; Translations: [31 weeks gestation of ] 08-29-2024 Episodic Residual codes; unclassified (1 source) Gestation period, 32 weeks; Translations: [32 weeks gestation of ] 09-02-2024 Episodic Residual codes; unclassified (2 sources) Gestation period, 33 weeks; Translations: [33 weeks gestation of ] 09-09-2024 Episodic Residual codes; unclassified (2 sources) Gestation period, 34 weeks; Translations: [34 weeks gestation of ] 09-16-2024 Episodic Residual codes; unclassified (2 sources) Gestation period, 35 weeks; Translations: [35 weeks gestation of ] 09-23-2024 Episodic Residual codes; unclassified (2 sources) Gestation period, 36 weeks; Translations: [36 weeks gestation of ] 09-30-2024 Episodic Residual codes; unclassified (2 sources) Gestation period, 37 weeks; Translations: [37 weeks gestation of ] 2024 Episodic Screening and history of mental health and substance abuse codes (4 sources) H/O: depression 04-17-2019 Episodic Thyroid disorders (20 sources) Hypothyroidism; Translations: [Graves' disease] Onset: 06-01-2011 Resolved: 03-17-2024 04-17-2019 Chronic Comment on above: Is currently euthyro id. Following with Dr. Jaimes currently and plans being made for thyroidectomy. Will update labs Unclassified (2 sources) Non-smoker 09-26-2022 Unclassified (20 sources) [facility] Education - COMMON Onset: 03-17-2024 03-17-2024 Unclassified (20 sources) Education - [place] Onset: 03-17-2024 03-17-2024 Past or Other Problems Problem Classification Problem Date Documented Date Episodic/Chronic Mycoses (20 sources) Candidiasis of vagina; Translations: [Vaginal yeast infection] Onset: 03-24-2024 Resolved: 04-22-2024 03-24-2024 Episodic Other complications of ; puerperium affecting management of mother (20 sources) condition affecting obstetrical care of mother; Translations: [Maternal care for (suspected) abnormality and damage, unspecified, not applicable or unspecified] Onset: 07-08-2024 Resolved: 10-21-2024 07-08-2024 Episodic Other complications of (20 sources) Anemia in mother complicating , childbirth AND/OR puerperium; Translations: [Anemia complicating , third trimester] Onset: 08-01-2024 Resolved: 10-21-2024 08-01-2024 Chronic Other complications of (20 sources) High risk ; Translations: [Supervision of high risk , unspecified, first trimester] Onset: 03-26-2024 Resolved: 04-22-2024 03-26-2024 Episodic Other complications of (1 source) Supervision of high risk , unspecified, second trimester; Translations: [Supervision of high risk in second trimester] Onset: 09-02-2024 Episodic Other complications of (1 source) Supervision of high risk , unspecified, first trimester; Translations: [Supervision of high risk in first trimester] Onset: 03-26-2024 Episodic Other female genital disorders (20 sources) History of gynecological disorder; Translations: [Personal history of other diseases of the female genital tract] Onset: 03-17-2024 Resolved: 04-22-2024 03-17-2024 Episodic Other nervous system disorders (20 sources) H/O: respiratory disease; Translations: [Personal history of other diseases of the nervous system and sense organs] Onset: 03-17-2024 03-17-2024 Episodic Other nutritional; endocrine; and metabolic disorders (3 sources) Personal history of other endocrine, nutritional and metabolic disease; Translations: [Personal history of other endocrine, metabolic, and immunity disorders] Onset: 03-17-2024 2022 Episodic Other nutritional; endocrine; and metabolic disorders (20 sources) History of Graves' disease; Translations: [Personal history of other endocrine, nutritional and metabolic disease] Onset: 03-17-2024 03-17-2024 Episodic Other and delivery including normal (20 sources) with uncertain dates; Translations: [Encounter for supervision of normal , unspecified, first trimester] Onset: 03-17-2024 Resolved: 04-22-2024 03-26-2024 Episodic Other screening for suspected conditions (not mental disorders or infectious disease) (8 sources) Cancer cervix screening status; Translations: [Encounter for screening for malignant neoplasm of cervix] Onset: 03-27-2024 03-26-2024 Episodic Residual codes; unclassified (4 sources) History of total thyroidectomy; Translations: [Other specified postprocedural states] Onset: 03-17-2024 03-26-2024 Episodic Residual codes; unclassified (1 source) 31 weeks gestation of ; Translations: [31 weeks gestation of ] Onset: 09-02-2024 Episodic Residual codes; unclassified (1 source) 27 weeks gestation of ; Translations: [27 weeks gestation of ] Onset: 07-31-2024 Episodic Residual codes; unclassified (1 source) 19 weeks gestation of ; Translations: [19 weeks gestation of ] Onset: 06-13-2024 Episodic Unclassified (20 sources) Type 2 diabetes mellitus without complication; Translations: [Uncontrolled type 2 diabetes mellitus without complication, without long-term current use of insulin] Onset: 07-07-2017 Resolved: 03-26-2024 07-07-2017 Results Test Name Value Interpretation Reference Range Facility Endocrinology Visit Reporton 06-04-2025 Endocrinology Visit Report [facility] [address] [place] [address]. [address] [place] [address] OFFICE VISIT Date of Service: 06/04/25 MR#: [id number] Acct: [id number] Name: BRIT Shen Rep #: [id number] : 1990 Provider: Catherine Pratt Age/Sex: 34/F [place] [facility] [place] Status: Signed Intake Vital Signs 11/20/24 10:42 06/04/25 08:48 Height 5 ft 3 in 5 ft 3 in Weight: 161 lb 4 oz 154 lb 4 oz BMI 28.5 27.3 BP 115/80 109/79 Blood Pressure Location Lt brachial Rt brachial Position Sitting Sitting Pulse 83 85 Pulse Source Monitor Monitor Pulse Oximetry (%) 96 96 Oxygen Delivery Method room air room air Intake Visit Reasons: 6 M FU Chief Complaint: Diabetes Is patient in pain?: No Allergies adhesive (adhesives) Allergy (Intermediate, Verified 06/04/25 08:52) Rash Medications ???Medication ???Instructions ???Recorded ???Confirmed ???Type lancets 28 gauge (FreeStyle #60 ea 08/29/18 06/04/25 Rx Lancets) BD Ultra-Fine Angie Pen Needle 32 #100 ea 01/16/24 06/04/25 Rx gauge x 5/32 (pen needle, diabetic) Dexcom G7 Sensor (blood-glucose #3 ea 07/17/24 06/04/25 Rx sensor) insulin lispro 100 unit/mL 8 unit (0.08 mL) subcut TID #15 mL 09/08/24 06/04/25 Rx subcutaneous pen (Humalog KwikPen (U-100) Insulin) Tresiba FlexTouch U-100 100 20 unit (0.2 mL) subcut DAILY #18 11/20/24 06/04/25 Rx unit/mL (3 mL) subcutaneous pen mL (insulin degludec) desogestrel 0.15 mg-ethinyl 1 tab PO QDAY 11/20/24 06/04/25 Hi story estradiol 0.03 mg tablet (Apri) levothyroxine 112 mcg tablet 112 mcg PO QDAY #90 tabs 11/20/24 06/04/25 Rx metformin 1,000 mg tablet 1,000 mg PO BID #60 tabs 11/24/24 06/04/25 Rx insulin aspart U-100 100 unit/mL 5 unit (0.05 mL) subcut TID #15 mL 01/02/25 06/04/25 Rx (3 mL) subcutaneous pen (Novolog FlexPen U-100 Insulin aspart) blood-glucose meter (FreeStyle #1 ea 03/10/25 06/04/25 Rx Lite Meter kit) sertraline 100 mg tablet 100 mg PO QDAY #90 tabs 03/17/25 1 08/04/24 Rx pen needle, diabetic 32 gauge x #100 ea 03/23/25 06/04/25 Rx (1st Tier Unifine Pentips Plus) [facility] Medical History Type 1 diabetes mellitus without complications Single live (spontaneous vaginal delivery) Diabetes mellitus during treated with insulin Graves disease Diabetes mellitus Elevated blood pressure reading Heart murmur Palpitations Acne JOHN (generalized anxiety disorder) Vaginal bleeding between periods Hypotension PFO (patent foramen ovale) Hemiplegia affecting left nondominant side History of migraine Hx of hypercholesterolemia Diabetes mellitus Chronic migraine Former tobacco use History of alcohol abuse Vitamin D deficiency Hypothyroidism Mitral valve prolapse Hypoglycemia Hyperlipidemia Abnormal laboratory test Hyperglycemia, unspecified Graves disease Sleep apnea Polycystic ovarian disease Surgical History H/O thyroidectomy Hx of thyroidectomy Family History Father High cholesterol Hypertension Diabetes Mother Alcoholism Grandmother Arthritis Grandfather Cancer Social History household members: significant other Smoking Status: Former smoker quit date: 07/30/16 Tobacco: How many years used: 9 Electronic Cigarette Use: not used how long ago did patient quit smoking: Quit 6-7 years prior, smoked 1 ppd since teen until quit. second hand exposure: No alcohol intake: former details: Former heavy drinker, sober 6-7 years. substance use type: former substance user Date of last use: Jun 2023 used medical marijuana caffeine: No what type of physical activity do you participate in: walking, running, bicycling and weight training frequency: 3-4 times per week seatbelt use: always HPI HPI Chief Complaint: Diabetes Details: BRIT VELASQUEZ, is a 34 F who presents to the office today for follow up. A1C is 5.6% GMI is 6.1% She is taking Tresiba daily and Humalog for higher carb meals. Annmarie is doing well. She has hypothyroidism and is taking levothyroxine. She had a dose adjustment in January and is due for labs. She has questions about risk of diabetes in her daughter. ROS Const Constitutional: No fatigue, weight change or change in appetite Eyes Eyes: No change in vision ENT ENT: No dizziness/vertigo or difficulty swallowing Cardio Cardiology: No chest pain at rest, chest pain with exertion, shortness of breath or palpitations Musc Musculoskeletal: No abnormal gait, joint pain, numbness or tingling Neuro Neurology: No abnormal gait, memory l (more content not included)... Normal [facility] Anion gap in Serum or Plasma Ordered By: Jayne Ferreira on 02-25-2025 Anion gap [Moles/Vol] 11 mmol/L 5-15 [facility] BUN/creatinine ratioOrdered By: Jayne Ferreira on 02-25-2025 Urea nitrogen/Creatinine [Mass ratio] 20.3 mg/mg High 10-20 [facility] Bilirubin, totalOrdered By: Jayne Ferreira on 02-25-2025 Bilirubin [Mass/Vol] 0.23 mg/dL 0.00-1.30 [facility] Calculated very low density lipoprotein (VLDL) cholesterol measurementOrdered By: Jayne Ferreira on 02-25-2025 Calculated very low density lipoprotein (VLDL) cholesterol measurement 22 mg/dL 5-40 [facility] Carbon dioxide, total [Moles /volume] in Central venous bloodOrdered By: Jayne Ferreira on 02-25-2025 CO2 [Moles/Vol] 23.7 mmol/L 21.0-32.0 [facility] Chloride assayOrdered By: Me rudy Ferreira on 02-25-2025 Chloride [Moles/Vol] 104 mmol/L 98-108 [facility] Comprehensive Metabolic Prof ilon 02-25-2025 Albumin [Mass/Vol] 4.2 g/dL Normal 3.5-5.0 [facility] Comment on above: Performed By: #### L 501.080 #### [facility] [place], [address] Albumin/Globulin [Mass ratio] 1.5 {ratio} Normal 0.9-2.4 [facility] Comment on above: Performed By: #### L 501.080 #### [facility] [address], [address] ALK PHOS 45 U/L Normal 35-104 [facility] Comment on above: Performed By: #### L 501.080 #### [facility] [address], [address] ALT [Catalytic activity/Vol] 20 U/L Normal <=34 [facility] Comment on above: Performed By: #### L 501.080 #### [facility] [address], [address] AST [Catalytic activity/Vol] 24 U/L Normal <=31 [facility] Comment on above: Performed By: #### L 501.080 #### [facility] [address], [address] Bilirubin [Mass/Vol] 0.23 mg/dL Normal 0.00-1.30 [facility] Comment on above: Performed By: #### L 501.080 #### [facility] [address], [address] BUN/CRE 20.3 RATIO High 10-20 [facility] Comment on above: Performed By: #### L [id number] #### [facility] [address], [address] Calcium [Mass/Vol] 9.6 mg/dL Normal 7.6-11.0 [facility] Comment on above: Performed By: #### [id number] #### [facility] [address], [address] Chloride [Moles/Vol] 104 mmol/L Normal 98-108 [facility] Comment on above: Performed By: #### [id number] #### [facility] [address], [address] CO2 [Moles/Vol] 23.7 mmol/L Normal 21.0-32.0 [facility] Comment on above: Performed By: #### [id number] #### [facility] [address], [address] Creatinine [Mass/Vol] 0.73 mg/dL Normal 0.70-1.20 [facility] Comment on above: Performed By: #### [id number] #### [facility] [address], [address] GAP 11 Normal 5-15 [facility] Comment on above: Performed By: #### L [id number] #### [facility] [address], [address] GFR/1.73 sq M.predicted among non-blacks MDRD (S/P/Bld) [Vol rate/Area] 111 mL/min/{1.73_m2} Normal >60 [facility] Comment on above: Result Comment: mL/m in/1.73m2 CKD-EPI Creatinine Equation (2020) Performed By: #### L 501.080 #### [facility] [address] [place], [address] Globulin (S) [Mass/Vol] 2.9 g/dL Normal 2.2-4.2 [facility] Comment on above: Performed By: #### L [id number] #### [facility] [address] [place], [address] Glucose [Mass/Vol] 85 mg/dL Normal 70-99 [facility] Comment on above: Performed By: #### [id number] #### [facility] [address] [place], [address] Potassium [Moles/Vol] 4.1 mmol/L Normal 3.3-5.1 [facility] Comment on above: Performed By: #### [id number] #### [facility] [address] [place], [address] Sodium [Moles/Vol] 139 mmol/L Normal 133-145 [facility] Comment on above: Performed By: #### L [id number] #### [facility] [address] [place], [address] T PROT 7.1 g/dL Normal 5.9-8.4 [facility] Comment on above: Performed By: #### [id number] #### [facility] [address], [address] Urea nitrogen [Mass/Vol] 15 mg/dL Normal 4-19 [facility] Comment on above: Performed By: #### L [id number] #### [facility] [address] [place], [address] Glomerular filtration rate ( GFR) estimation/1.73 sq m using serum, plasma, or whole bOrdered By: Jayne Ferreira on 02-25-2025 GFR/1.73 sq M.predicted among non-blacks MDRD (S/P/Bld) [Vol rate/Area] 111 mL/min/{1.73_m2} >60 [facility] Comment on above: mL/min/1.73m2 CKD-EP I Creatinine Equation (2020) LDL calc ser/plasOrdered By: Jayne Ferreira on 02-25-2025 Cholesterol in LDL [Mass/Vol] 125 mg/dL [facility] Comment on above: Pzramfymqc=735-595 m g/dL & Higher Qrap=915 mg/dL or greaterFriedwald Equation for LDL-C Laboratory - Chemistry and C hemistry - challengeOrdered By: Jayne Ferreira on 02-25-2025 AST [Catalytic activity/Vol] 24 U/L <32 [facility] Lipid Profileon 02-25-2025 CHOL:HDL 3.08 Normal [facility] Comment on above: Performed By: #### L 501.080 #### [facility] [address] [place], [address] Cholesterol [Mass/Vol] 217 mg/dL High <=200 [facility] Comment on above: Result Comment: Chol esterol level, Desirable <200 mg/dL Borderline high cholesterol 200-239 mg/dL High cholesterol >=240 mg/dL Recommendations of the NCEP Adult Treatment Panel for the following risk-cutoff thresholds for the [place] population. Performed By: #### L 501.080 #### [facility] [address], [address] Cholesterol in HDL [Mass/Vol] 71 mg/dL Normal [facility] Comment on above: Result Comment: Shanika onal Cholesterol Education Program (NCEP) guidelines: <40 mg/dL: Low HDL-cholesterol (major risk factor for CHD) >= 60 mg/dL: High HDL-cholesterol (negative risk factor for CHD) HDL-cholesterol is affected by a number of factors, e.g. smoking, exercise, hormones, sex and age. Performed By: #### L 501.080 #### [facility] [address] [place], [address] Cholesterol in LDL [Mass/Vol] 125 mg/dL Normal [facility] Comment on above: Result Comment: Bord wrtosq=891-499 mg/dL Higher Srtj=723 mg/dL or greater Friedwald Equation for LDL-C Performed By: #### [id number] #### [facility] [address] [place], [address] Cholesterol in VLDL [Mass/Vol] 22 mg/dL Normal 5-40 [facility] Comment on above: Performed By: #### L [id number] #### [facility] [address] [place], [address] Triglyceride [Mass/Vol] 109 mg/dL Normal [facility] Comment on above: Result Comment: The drugs N-Acetylcysteine and Metamizole may falsely depress this assay. Normal range: <150 mg/dL Borderline High: 150-199 mg/dL High: 200-499 mg/dL Very High: >500 mg/dL Performed By: #### L 501.080 #### [facility] [address] [place], [place], [address] Microalb:Creat Ratio,Random URon 02-25-2025 Creatinine [Mass/Vol] 154.00 mg/dL Normal 28.00-217.00 [facility] Comment on above: Performed By: #### L 501.080 #### [facility] [address] [place], [place], [address] Microalbumin/creat ratio urO rdered By: Jayne Ferreira on 02-25-2025 Urine microalbumin/creatinine ratio measurement UNABLE TO CALCULATE mg/g CRE <30 [facility] Comment on above: Previous reported re sult: UNABLE TO CALCULATE mg/g CREEdited by: RAKESH on 02/25/25:1342 AMENDED REPORT 02/25/25 1342 MALB:CREAT previously reported as: UNABLE TO CALCULATE mg/g CRE Potassium measurement (mass/ volume)Ordered By: Jayne Ferreira on 02-25-2025 Potassium (Unsp spec) [Mass/Vol] 4.1 mmol/L 3.3-5.1 [facility] Random urine creatinine caitlin urement (mass/volume)Ordered By: Jayne Ferreira on 02-25-2025 Creatinine Unsp time (U) [Mass/Vol] 154.00 mg/dL 28.00-217.00 [facility] Screening total cholesterol/ high density lipoprotein (HDL) cholesterol ratioOrdered By: Jayne Ferreira on 02-25-2025 Cholesterol.total/Mairanne sterol in HDL [Mass ratio] 3.08 {ratio} [facility] Serum creatinine measurement (mass/volume)Ordered By: Jayne Ferreira on 02-25-2025 Creatinine [Mass/Vol] 0.73 mg/dL 0.70-1.20 [facility] Serum globulin measurementOr dered By: Jayne Ferreira on 02-25-2025 Globulin (S) [Mass/Vol] 2.9 g/dL 2.2-4.2 [facility] Serum glucose measurement (m ass/volume)Ordered By: Jayne Ferreira on 02-25-2025 Glucose [Mass/Vol] 85 mg/dL 70-99 [facility] Serum or plasma alanine mills otransferase (ALT) measurementOrdered By: Jayne Ferreira on 02-25-2025 ALT [Catalytic activity/Vol] 20 U/L <35 [facility] Serum or plasma albumin caitlin urement (mass/volume)Ordered By: Jayne Ferreira on 02-25-2025 Albumin [Mass/Vol] 4.2 g/dL 3.5-5.0 [facility] Serum or plasma albumin/glob ulin mass ratioOrdered By: Jayne Ferreira on 02-25-2025 Albumin/Globulin [Mass ratio] 1.5 {ratio} 0.9-2.4 [facility] Serum or plasma alkaline marilynn sphatase measurementOrdered By: Jayne Ferreira on 02-25-2025 ALP [Catalytic activity/Vol] 45 U/L 35-104 [facility] Serum or plasma calcium caitlin urement (mass/volume)Ordered By: Jayne Ferreira on 02-25-2025 Calcium [Mass/Vol] 9.6 mg/dL 7.6-11.0 [facility] Serum or plasma cholesterol in HDL measurement (mass/volume)Ordered By: Jayne Ferreira on 02-25-2025 Cholesterol in HDL [Mass/Vol] 71 mg/dL >40 [facility] Comment on above: National Cholesterol Education Program (NCEP) guidelines:<40 mg/dL: Low HDL-cholesterol (major risk factor for CHD)>= 60 mg/dL: High HDL-cholesterol (negative risk factor for CHD)HDL-cholesterol is affected by a number of factors, e.g. smoking, exercise, hormones, sex and age. Serum or plasma cholesterol measurement (mass/volume)Ordered By: Jayne Ferreira on 02-25-2025 Cholesterol [Mass/Vol] 217 mg/dL High <201 [facility] Comment on above: Cholesterol level, D esirable <200 mg/dLBorderline high cholesterol 200-239 mg/dLHigh cholesterol >=240 mg/dLRecommendations of the NCEP Adult Treatment Panel for the following risk-cutoff thresholds for the [place] population. Serum or plasma urea nitroge n measurement (mass/volume)Ordered By: Jayne Ferreira on 02-25-2025 Urea nitrogen [Mass/Vol] 15 mg/dL 4-19 [facility] Sodium levelOrdered By: Reynaldo Ferreira on 02-25-2025 Sodium [Moles/Vol] 139 mmol/L 133-145 [facility] T4 Free Directon 02-25-2025 T4 FREE DIRECT 1.40 ng/dL Normal 0.76-1.46 [facility] Comment on above: Performed By: #### L 501.080 #### [facility] [address] [place], [address] T4 freeOrdered By: Marah on 02-25-2025 Free T4 [Mass/Vol] 1.40 ng/dL 0.76-1.46 [facility] TSH DL <= 0.005 mIU/L QnOrde red By: Jayne Ferreira on 02-25-2025 TSH Qn 5.050 uIU/mL High 0.300-4.200 [facility] Thyroid Stim Hormone (TSH)on 02-25-2025 TSH 5.050 uIU/mL High 0.300-4.200 [facility] Comment on above: Performed By: #### L 501.080 #### [facility] [address], [address] Total proteinOrdered By: Radha Ferreira on 02-25-2025 Protein [Mass/Vol] 7.1 g/dL 5.9-8.4 [facility] Triglycerides measurementOrd ered By: Jayne Ferreira on 02-25-2025 Triglyceride [Mass/Vol] 109 mg/dL <199 [facility] Comment on above: The drugs N-Acetylcy steine and Metamizole may falsely depress this assay. Normal range: <150 mg/dLBorderline High: 150-199 mg/dLHigh: 200-499 mg/dLVery High: >500 mg/dL Urine albumin measurement wi th detection limit of 20 mg/L or less (mass/volume)Ordered By: Jayne Ferreira on 02-25-2025 Albumin DL <= 20 mg/L (U) [Mass/Vol] < 12.0 mg/L <20 mg/L [facility] Vitamin D,25 Hydroxyon 02-25 Vitamin D 25-OH 34.2 ng/mL Normal 30-100 [facility] Comment on above: Result Comment: Mindy min D Status Deficiency: <20 ng/mL (50nmol/L) Insufficiency: 20-30 ng/mL (50-75 nmol/L) Sufficiency: 30-100 ng/mL (75-250 nmol/L) Toxicity: >100 ng/mL (>250 nmol/L) Performed By: #### L 501.080 #### [facility] [address], [address] CNOVon 02-06-2025 CNOV Office Visit (OBGYWM ) BRIT VELASQUEZ ([id number]) 1990 F Date Time Provider Department 02/06/25 9:20 AM SPENCER CORDOVA OBGYWM During your visit today, we recorded the following information about you: Blood pressure Weight Height Last Period 10458 69.9 kg 1.626 m 01/16/25 Spencer Cordova MD 02/06/2025 11:48 AM Signed Brit is a 34 year old who presents for an annual gynecologic exam without complaints. Still get period: Yes Bleeding amount bothersome: No Bleeding between periods: Yes Period symptoms: None Time with current partner: 6 years Number of lifetime partners: 2 control frequency: Always HPV vaccine: Yes; HPV:negative Last pap smear: 2023 negative History of abnormal pap: No, all prior PAP smears have been normal Bothersome pelvic pain: No Last mammogram: never OB History Gravida2 Para1 Term1 Preterm0 AB1 Living1 SAB1 IAB0 Ectopic0 Multiple0 Live Births1 Credit Underwriter History LMP: 01/16/2025 (Exact Date), Having periods Age at Menarche: 12 Age at First : Age at Menopause: Credit Underwriter History Comments: Sexual Activity: Yes; Male Contraception: Pill Menstrual Tracking History Flowsheet Row Office Visit from 02/06/2025 in OB/Gynecology Period Cycle (Days) 30 Period Duration (Days) 6 Menstrual Flow Moderate PAST MEDICAL HISTORY Diagnosis Date Antepartum anemia complicating in third trimester (HCC) 08/01/2024 History of PCOS 03/17/2024 Hypothyroidism thyroid was removed Sleep apnea 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 Type 1 diabetes ([facility]) 2017 PAST SURGICAL HISTORY Procedure Laterality Date THYROIDECTOMY FAMILY HISTORY Problem Relation Age of Onset None Mother Hypertension Father Hyperlipidemia Father None Sister Arthritis Maternal Grandmother Prostate Cancer Maternal Grandfather Skin Cancer Maternal Grandfather Heart Attack Maternal Grandfather Cancer Paternal Grandmother Cancer Paternal Grandfather SOCIAL HISTORY Social History Tobacco Use Smoking status: Former Current packs/day: 0.00 Types: Cigarettes Quit date: 02/27/2017 Years since quittin.9 Smokeless tobacco: Never Vaping Use Vaping status: Never Used Substance Use Topics Alcohol use: No Drug use: No REVIEW OF SYSTEMS Abdomen: No abdominal pain, nausea, vomiting, diarrhea, or constipation. No bloating, early satiety, indigestion, or increased flatulence. Bladder: No dysuria, gross hematuria, urinary frequency, urinary urgency, or incontinence. Breast: No breast lumps, nipple d/c, overlying skin changes, redness or skin retraction. Allergies and current medication updated:Yes SENSITIVE EXAM: The sensitive examination was discussed with the Patient or Patient's Authorized Bog Cutter. As applicable, any other physician, advance practice provider, medical student, or other health professional student that will be observing or involved in the sensitive examination for educational or training purposes was discussed with the Patient or Authorized Bog Cutter. The Patient or Authorized Bog Cutter has agreed to proceed with the sensitive examination. (Sensitive examination includes inspection and/or palpation of the breasts, pelvis, prostate and anorectal regions). EXAM: BP 104/58 Ht 5' 4 (1.63m) Wt 154 lb (69.9kg) LMP 01/16/2025 BMI 26.42 kg/(m2). GENERAL: pleasant, female in no apparent distress BREAST: soft, non-tender, symmetric, no dominant mass, normal nipple-areolar complex, no lymphadenopathy, and no nipple discharge CHEST: Normal inspiratory effort ABDOMEN: soft, non-tender, and no masses PELVIC: external genitalia normal, normal Bartholin's glands, urethra, Wilmont's glands, no vulvar lesions, no cervical lesions, good vaginal support, physiologic discharge present, normal appearing perineal body and perianal region BIMANUAL: uterus normal size, shape and consistency, no adnexal masses, and non-tender RECTOVAGINAL: deferred. NEURO: alert and oriented x3,exam grossly non-focal EXTREMITIES: normal ASSESSMENT/PLAN: 1) Health maintenance: Pap/HPV up to date. Nutrition, exercise and routine health maintenance exams reviewed. 2) Contraception: combined hormonal contraceptives. Contraceptive options reviewed and information provided. 3) Follow up one year or sooner as needed Spencer Cordova MD Allergies As of Date: 02/06/2025 Noted Allergy Reaction ADHESIVE 08/29/2024 2 - Rash Date Reviewed: 02/06/2025 Reviewed by: Spencer Cordova MD - Fully Assessed Reason for Visit: Yearly Exam [187] Primary Visit Diagnosis:Encounter for gynecological examination (general) (routine) without abnormal findings [Z01.419] Other Visit Diagnosis:Encounter for surveillance of contraceptive pills [Z30.41] Order(s):Desogestrel-E thinyl Estradiol (ENSKYCE) 0.15-0.03 mg per tabletTake 1 tablet by mouth once daily.Di (more content not included)... Normal [facility] Endocrinology Visit Reporton 11-20-2024 Endocrinology Visit Report [facility] [address] [place] [address] OFFICE VISIT Date of Service: 11/20/24 MR#: [id number] Acct: [id number] Name: BRIT VELASQUEZ Rep #: [id number] : 1990 Provider: Catherine Pratt Age/Sex: 34/F [place] [facility] [place]: Signed Intake Vital Signs 09/08/24 09:55 10/14/24 19:07 11/20/24 10:42 Height 5 ft 3 in 5 ft 3 in 5 ft 3 in Weight: 161 lb 4 oz BMI 28.5 BP 115/80 Blood Pressure Location Lt brachial Position Sitting Pulse 83 Pulse Source Monitor Pulse Oximetry (%) 96 Oxygen Delivery Method room air Intake Visit Reasons: 2 M FU Chief Complaint: Diabetes Is patient in pain?: No Allergies adhesive (adhesives) Allergy (Intermediate, Verified 11/20/24 10:46) Rash Medications ???Medication ???Instructions ???Recorded ???Confirmed ???Type lancets 28 gauge (FreeStyle #60 ea 08/29/18 11/20/24 Rx Lancets) blood-glucose meter (FreeStyle 12/03/23 11/20/24 History Lite Meter kit) BD Ultra-Fine Angie Pen Needle 32 #100 ea 01/16/24 11/20/24 Rx gauge x 5/32 (pen needle, diabetic) metformin 1,000 mg tablet 1,000 mg PO BID #60 tabs 02/18/24 11/20/24 Rx Dexcom G7 Sensor (blood-glucose #3 ea 07/17/24 11/20/24 Rx sensor) insulin aspart U-100 100 unit/mL 5 unit (0.05 mL) subcut TID #15 mL 08/25/24 11/20/24 Rx (3 mL) subcutaneous pen (Novolog FlexPen U-100 Insulin aspart) ferrous sulfate 325 mg (65 mg 325 mg PO QDAY 09/08/24 11/20/24 History iron) tablet insulin lispro 100 unit/mL 8 unit (0.08 mL) subcut TID #15 mL 09/08/24 11/20/24 Rx subcutaneous pen (Humalog KwikPen (U-100) Insulin) sertraline 100 mg tablet 100 mg PO QDAY #90 tabs 11/07/24 0 11/20/24 Rx Tresiba FlexTouch U-100 100 20 unit (0.2 mL) subcut DAILY #18 11/20/24 11/20/24 Rx unit/mL (3 mL) subcutaneous pen mL (insulin degludec) desogestrel 0.15 mg-ethinyl 1 tab PO QDAY 11/20/24 11/20/24 Hi story estradiol 0.03 mg tablet (Apri) levothyroxine 112 mcg tablet 112 mcg PO QDAY #90 tabs 11/20/24 11/20/24 Rx PFSH Medical History (Updated 11/20/24 @ 11:[address] Isabel Zuniga MD) Type 1 diabetes mellitus without complications Single live (spontaneous vaginal delivery) Diabetes mellitus during treated with insulin Graves disease Diabetes mellitus Elevated blood pressure reading Heart murmur Palpitations Acne JOHN (generalized anxiety disorder) Vaginal bleeding between periods Hypotension PFO (patent foramen ovale) Hemiplegia affecting left nondominant side History of migraine Hx of hypercholesterolemia Diabetes mellitus Chronic migraine Former tobacco use History of alcohol abuse Vitamin D deficiency Hypothyroidism Mitral valve prolapse Hypoglycemia Hyperlipidemia Abnormal laboratory test Hyperglycemia, unspecified Graves disease Sleep apnea Polycystic ovarian disease Surgical History H/O thyroidectomy Hx of thyroidectomy Family History Father High cholesterol Hypertension Diabetes Mother Alcoholism Grandmother Arthritis Grandfather Cancer Social History household members: significant other Smoking Status: Former smoker quit date: 07/30/16 Tobacco: How many years used: 9 Electronic Cigarette Use: not used how long ago did patient quit smoking: Quit 6-7 years prior, smoked 1 ppd since teen until quit. second hand exposure: No alcohol intake: former details: Former heavy drinker, sober 6-7 years. substance use type: former substance user Date of last use: Jun 2023 used medical marijuana caffeine: No what type of physical activity do you participate in: walking, running, bicycling and weight training frequency: 3-4 times per week seatbelt use: always HPI HPI Chief Complaint: Diabetes Details: BRIT VELASQUEZ, is a 34 F who presents to the office today for follow up. A1C is 5.9% She is post-. She had healthy baby girl, Annmarie born on October 15. She is doing great. She is taking Tresiba and not requiring any log. She has hypothyroidism. Dosage was increased during . She is feeling well. ROS Const Constitutional: No fatigue, weight change or change in appetite Eyes Eyes: No change in vision ENT ENT: No dizziness/vertigo or difficulty swallowing Cardio Cardiology: No chest pain at rest, chest pain with exertion, shortness of breath or palpitations Musc Musculoskeletal: No abnormal gait, joint pain, numbness or tingling Neuro Neurology: No abnormal gait, memory loss, numbness or tingling Psych Psychiatric: No change in appetite, No memory loss a (more content not included)... Normal [facility] Laboratory - Hematology and Cell countsOrdered By: Isabel Zuniga on 11-20-2024 HbA1c (Bld) [Mass fraction] 5.8 % 4.2-6.3 [facility] CNOVon 11-18-2024 CNOV Office Visit (OBGYWM ) BRIT VELASQUEZ ([id number]) 1990 F Date Time Provider Department 11/18/24 10:50 AM SPENCER CORDOVA OBGYWM During your visit today, we recorded the following information about you: Blood pressure Weight 100/68 73.6 kg Spencer Cordova MD 11/18/2024 11:12 AM Signed Obstetrics and Gynecology [place] [employer] Visit Subjective Recording using [employer] software for draft documentation of the visit was discussed with the patient/authorized players club representative; all questions welcomed and answered. Patient/authorized players club representative agreed to proceed CHIEF COMPLAINT: The patient is a 34-year-old female with a history of diabetes presenting for contraception counseling. HPI: Contraception Counseling and Management - Previously used Enskyce, a combined oral contraceptive pill, for several years with good tolerance and effectiveness. - Interested in resuming Enskyce. - Feels confident in her ability to take a pill at the same time every day. - Bottle feeding her [id number] infant. - Denies history of migraine headaches, blood clots, or vascular issues related to diabetes. - Not interested in long-acting reversible contraceptives (LARCs) such as an intrauterine device or Nexplanon at this time. - Considering tubal ligation next year due to current work constraints and inability to take additional time off. - Partner has not yet considered a vasectomy. 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 Type 1 diabetes (HCC) 2016 PAST SURGICAL HISTORY Procedure Laterality Date THYROIDECTOMY FAMILY HISTORY Problem Relation Age of Onset None Mother Hypertension Father Hyperlipidemia Father None Sister Arthritis Maternal Grandmother Prostate Cancer Maternal Grandfather Skin Cancer Maternal Grandfather Heart Attack Maternal Grandfather Cancer Paternal Grandmother Cancer Paternal Grandfather Social History Tobacco Use Smoking status: Former Current packs/day: 0.00 Types: Cigarettes Quit date: 02/27/2017 Years since quittin.7 Smokeless tobacco: Never Vaping Use Vaping status: Never Used Substance Use Topics Alcohol use: No Drug use: No Current Outpatient Medications Medication Sig Azelaic Acid 15 % gel APPLY A THIN LAYER TO THE FACE ONCE DAILY, OPPOSITE OF CLINDAMYCIN. clindamycin (CLEOCIN-T) 1 % gel APPLY A THIN LAYER TO THE FACE ONCE DAILY, OPPOSITE OF AZELAIC ACID. DEXCOM G7 SENSOR sri USE DIRECTED, REPLACE EVERY 10 DAYS sertraline (ZOLOFT) 100 mg tablet Take 1 tablet by mouth every afternoon. insulin degludec (TRESIBA FLEXTOUCH U-100) 100 unit/mL (3 mL) injection pen Take per endocrinology. insulin aspart U-100 (NOVOLOG FLEXPEN U-100 INSULIN) 100 unit/mL (3 mL) Takes before meals per endocrinology. ferrous sulfate (SLOW FE) 140 mg (45 mg iron) TbER Take 1 tablet by mouth once daily. metFORMIN (GLUCOPHAGE) 1,000 mg tablet Take 1,000 mg by mouth daily with breakfast. levothyroxine (SYNTHROID) 112 mcg tablet Take 125 mcg by mouth daily before breakfast. One tablet daily except for sunday she takes 1 1/2 tablets and Sunday is 2 tablets blood sugar diagnostic (FREESTYLE INSULINX TEST STRIPS) test strip Test blood sugar(s) 3 times daily. Dx: Type 2 DM - Uncontrolled E11.65 Insulin: No Blood-Glucose Meter (FREESTYLE INSULINX) misc Dx: Type 2 DM - Uncontrolled E11.65 lancets (FREESTYLE LANCETS) 28 gauge misc Test blood sugar(s) 2 times daily. Dx: Type 2 DM - Uncontrolled E11.65 Insulin: No Desogestrel-Ethinyl Estradiol (ENSKYCE) 0.15-0.03 mg per tablet Take 1 tablet by mouth once daily. No current facility-administered medications for this visit. ALLERGIES Allergen Reactions Adhesive Rash REVIEW OF SYSTEMS: Head: (-) migraine headaches Objective SENSITIVE EXAM: Sensitive exam not performed. PHYSICAL EXAM: BP 100/68 Wt 162 lb 3.2 oz (73.6kg) LMP 01/19/2024 General: No acute distress. Assessment AND Plan ASSESSMENT AND PLAN: 1. Counseling for control, oral contraceptives (Z30.09) - Discussed resuming Enskyce, a combined oral contraceptive pill, which patient has used successfully in the past. - Confirmed patient is bottle feeding and has no contraindications such as migraines, personal history of blood clots, or vascular issues related to diabetes. - Educated on the safety and ef (more content not included)... Normal [facility] Absolute neutrophil countOrd ered By: Edilma Goncalves on 10-16-2024 Neutrophils (Bld) [#/Vol] 6.9 10*3/uL 2.0-7.7 [facility] Basophil percentageOrdered B y: Edilma Goncalves on 10-16-2024 Basophils/100 WBC (Bld) 0.4 % 0-1 [facility] CBC W/Diff, Automatedon 09-28 Absolute Lymph 1.94 X10 3/uL Normal 0.83-4.51 [facility] Comment on above: Order Comment: Comme nts: First day Performed By: #### L [id number], L506.0400 #### [facility] [address] [place], [place], [id number] Absolute Neut 6.9 X10 3/uL Normal 2.0-7.7 [facility] Comment on above: Order Comment: Comme nts: First day Performed By: #### L [id number], L506.0400 #### [facility] [address], [address] Basophils/100 WBC (Bld) 0.4 % Normal 0-1 [facility] Comment on above: Order Comment: Comme nts: First day Performed By: #### L [id number], L506.0400 #### [facility] [address], [address] Eosinophils/100 WBC (Bld) 0.7 % Normal 0-5 [facility] Comment on above: Order Comment: Comme nts: First day Performed By: #### L [id number], L506.0400 #### [facility] [address], [address] Erythrocyte distribution width (RBC) [Ratio] 13.4 % Normal 11.6-14.6 [facility] Comment on above: Order Comment: Comme nts: First day Performed By: #### L [id number], L506.0400 #### [facility] [address], [address] Hematocrit (Bld) [Volume fraction] 25.6 % Low 37-47 [facility] Comment on above: Order Comment: Comme nts: First day Performed By: #### L [id number], L506.0400 #### [facility] [address], [address] Hemoglobin (Bld) [Mass/Vol] 8.7 g/dL Low 12.0-15.0 [facility] Comment on above: Order Comment: Comme nts: First day Performed By: #### L [id number], L506.0400 #### [facility] [address], [address] IG% 0.500 Normal 0.0-0.9 [facility] Comment on above: Order Comment: Comme nts: First day Result Comment: IG% - Immature Granulocytes (promyelocytes, myelocytes and metamyelocytes) > 1% indicates that a LEFT SHIFT is Present. Performed By: #### L [id number], L506.0400 #### [facility] [address], [address] Lymphocytes/100 WBC (Bld) 20.3 % Normal 19-41 [facility] Comment on above: Order Comment: Comme nts: First day Performed By: #### L 501.95, L506.0400 #### [facility] [address], [address] MCH (RBC) [Entitic mass] 29.0 pg Normal 27.0-32.0 [facility] Comment on above: Order Comment: Comme nts: First day Performed By: #### L 501.95, L506.0400 #### [facility] [address], [address] MCHC (RBC) [Mass/Vol] 34.0 g/dL Normal 32-36 [facility] Comment on above: Order Comment: Comme nts: First day Performed By: #### L [id number], L506.0400 #### [facility] [address], [address] MCV (RBC) [Entitic vol] 85.3 fL Normal 81-99 [facility] Comment on above: Order Comment: Comme nts: First day Performed By: #### L [id number], [id number] #### [facility] [address], [address] Monocytes/100 WBC (Bld) 6.0 % Normal 0-10 [facility] Comment on above: Order Comment: Comme nts: First day Performed By: #### L 501.95, L506.0400 #### [facility] [address], [address] Neutrophils/100 WBC (Bld) 72.1 % High 47-70 [facility] Comment on above: Order Comment: Comme nts: First day Performed By: #### L [id number], [id number] #### [facility] [address], [address] Nucleated RBC (Bld) [#/Vol] 0 10*3/uL Normal 0-5 [facility] Comment on above: Order Comment: Comme nts: First day Performed By: #### L 501.95, L506.0400 #### [facility] [address], [address] Platelet mean volume (Bld) [Entitic vol] 10.0 fL Normal 6.2-12.0 [facility] Comment on above: Order Comment: Comme nts: First day Performed By: #### L [id number], L506.0400 #### [facility] [address], [address] Platelets (Bld) [#/Vol] 127 10*3/uL Low 150-450 [facility] Comment on above: Order Comment: Comme nts: First day Performed By: #### L [id number], L506.0400 #### [facility] [address], [address] RBC (Bld) [#/Vol] 3.00 10*6/uL Low 4.2-5.4 [facility] Comment on above: Order Comment: Comme nts: First day Performed By: #### L [id number], L506.0400 #### [facility] [address], [address] RDW SD 41.3 fl Normal 35.1-43.9 [facility] Comment on above: Order Comment: Comme nts: First day Performed By: #### L [id number], L506.0400 #### [facility] [address], [address] WBC (Bld) [#/Vol] 9.6 10*3/uL Normal 4.4-11.0 [facility] Comment on above: Order Comment: Comme nts: First day Performed By: #### L [id number], L506.0400 #### [facility] [address], [address] Discharge Instructionon 09-28 Discharge Instruction [facility] Medical Records Department [address] [place] [address] Instructions for Home/Discharge Instructions 10/16/24 0855 MR#: [id number] Acct: [id number] Name: BRIT VELASQUEZ Rep #: [id number] : 1990 34 From: Gauri Hernandez DO PCP: Cindy Hernandez NP-C Status:ADM IN Discharge Instructions Diet Discharge Diet: No restrictions DC O2, CPAP, BIPAP needs Home O2 Discharge instructions: No Dressing / Incision Discharge Activity: May Drive and May Shower May resume sexual activity in: 6 weeks Weight Bearing Status: Weight bearing as tolerated Lifting Restrictions: nothing heavier than baby Dressing / Incision Call your doctor if you observe: Fever of 101 or Higher, Coldness, Increased Pain, Numbness or Tingling, Inability to urinate, Inability to have a bowel movement, Using more than 1 pad per hour, Shortness of breath, Dizziness, Swelling in the ankles, Chest pain, Increased palpitations (irregular heartbeat), Calf discomfort and Uncontrolled pain Cleanse incision/area with: Soap Water Follow Up Care When: 1 week 6 weeks Test Results: Test results from this visit will be discussed in further detail at your follow-up appointment, if applicable. Discharge Plan Admission Admit Date/Time: 10/14/24 19:11 Attending Provider: Edilma Goncalves Primary Care Provider: Cindy Hernandez GREEN CHAINER Instructions Patient Instructions: After a Vaginal Delivery (WP) Discharge Orders/Prescriptions Prescriptions: Continued (DME) blood-glucose meter [FreeStyle Lite Meter] Kit See Rx Instructions .Route Rx Instructions: As directed PNV #[id number] acid-[id number] 30 mg iron-10 mg iron-1 mg capsule 1 cap PO DAILY sertraline 100 mg tablet 100 mg PO QDAY Qty: 90 1RF ferrous sulfate 325 mg (65 mg iron) tablet 325 mg PO QDAY insulin lispro [Humalog KwikPen Insulin] 100 unit/mL insulin pen 8 unit subcut TID Qty: 15 5RF (DME) lancets [FreeStyle Lancets] 28 gauge misc See Dose Instructions .ROUTE .MEDSUPPLY Qty: 60 11RF Dose Instruction: As directed Rx Instructions: use to check BG bid (DME) pen needle, diabetic [BD Ultra-Fine Angie Pen Needle] 32 gauge x 5/32 needle See Rx Instructions .ROUTE .MEDSUPPLY Qty: 100 3RF Rx Instructions: daily metformin 1,000 mg tablet 1,000 mg PO BID Qty: 60 8RF insulin degludec [Tresiba FlexTouch U-100] 100 unit/mL (3 mL) insulin pen 20 unit subcut DAILY Qty: 18 0RF (DME) FreeStyle Vipin 3 Plus Sensor Device See Rx Instructions .Route Qty: 6 1RF Rx Instructions: As directed (DME) Dexcom G7 Sensor Device See Rx Instructions .Route Qty: 3 6RF Rx Instructions: As directed insulin aspart U-100 [Novolog FlexPen U-100 Insulin] 100 unit/mL (3 mL) insulin pen 5 unit subcut TID Qty: 15 1RF levothyroxine 125 mcg tablet 125 mcg PO .QD, 1.5 on Sunday Qty: 96 1RF Discontinued aspirin 81 mg tablet,delayed release (DR/EC) 81 mg PO QDAY Referrals / Follow Up: Cindy Hernandez GREEN CHAINER, GREEN CHAINER-C [Primary Care Provider] - Disposition Disposition (needs filled in before D/C Order can be placed): Home, Self Care 10/16/24 0855 Gauri Hernandez DO CC: GREEN CHAINER-C Cindy Hernandez Signed Normal [facility] Eosinophil percentageOrdered By: Edilma Goncalves on 10-16-2024 Eosinophils/100 WBC (Bld) 0.7 % 0-5 [facility] Erythrocyte distribution wid th ratioOrdered By: Edilma Goncalves on 10-16-2024 Erythrocyte distribution width (RBC) [Ratio] 13.4 % 11.6-14.6 [facility] Erythrocyte distribution wid th standard deviationOrdered By: Edilma Goncalves on 10-16-2024 Erythrocyte distribution width (RBC) [Entitic vol] 41.3 fL 35.1-43.9 [facility] Hematocrit Auto (Bld) [Volum e fraction]Ordered By: Edilma Goncalves on 10-16-2024 Hematocrit (Bld) [Volume fraction] 25.6 % Low 37-47 [facility] Hemoglobin measurementOrdere d By: Edilma Goncalves on 10-16-2024 Hemoglobin (Bld) [Mass/Vol] 8.7 g/dL Low 12.0-15.0 [facility] Immature granulocytes/100 WB C Auto (Bld)Ordered By: Edilma Goncalves on 10-16-2024 Immature granulocytes/100 WBC (Bld) 0.500 % 0.0-0.9 [facility] Comment on above: IG% - Immature Granu locytes (promyelocytes, myelocytes and metamyelocytes) > 1% indicates that a LEFT SHIFT is Present. Lymphocytes Auto (Unsp spec) [#/Vol]Ordered By: Edilma Goncalves on 10-16-2024 Lymphocytes (Bld) [#/Vol] 1.94 10*3/uL 0.83-4.51 [facility] Lymphocytes/100 WBC Auto (Un sp spec)Ordered By: Edilma Goncalves on 10-16-2024 Lymphocytes/100 WBC (Bld) 20.3 % 19-41 [facility] MCV (mean corpuscular volume ) determinationOrdered By: Edilma Goncalves on 10-16-2024 MCV (RBC) [Entitic vol] 85.3 fL 81-99 [facility] Mean corpuscular hemoglobin (MCH) determinationOrdered By: Edilma Goncalves on 10-16-2024 MCH (RBC) [Entitic mass] 29.0 pg 27.0-32.0 [facility] Mean corpuscular hemoglobin concentration (MCHC) determinationOrdered By: Edilma Goncalves on 10-16-2024 MCHC (RBC) [Mass/Vol] 34.0 g/dL 32-36 [facility] Mean platelet volume determi nationOrdered By: Edilma Goncalves on 10-16-2024 Platelet mean volume (Bld) [Entitic vol] 10.0 fL 6.2-12.0 [facility] Monocyte percentageOrdered B y: Edilma Goncalves on 10-16-2024 Monocytes/100 WBC (Bld) 6.0 % 0-10 [facility] Neutrophil percentageOrdered By: Edilma Goncalves on 10-16-2024 Neutrophils/100 WBC (Bld) 72.1 % High 47-70 [facility] Nucleated red blood cell per centageOrdered By: Edilma Goncalves on 10-16-2024 Nucleated RBC/100 WBC (Bld) [Ratio] 0 % 0-5 [facility] Platelet countOrdered By: Louann Goncalves on 10-16-2024 Platelets (Bld) [#/Vol] 127 10*3/uL Low 150-450 [facility] RBC Auto (Bld) [#/Vol]Ordere d By: Edilma Goncalves on 10-16-2024 RBC (Bld) [#/Vol] 3.00 10*6/uL Low 4.2-5.4 [facility] White blood cell (WBC) count Ordered By: Edilma Goncalves on 10-16-2024 WBC (Bld) [#/Vol] 9.6 10*3/uL 4.4-11.0 [facility] Bedside Glucoseon 10-15-2024 FINGERSTICK GLU 85 mg/dL Normal 74-106 [facility] Comment on above: Result Comment: MIKAELA GEMENT OF PATIENT CARE PER NURSING PROTOCOL Performed By: #### L 501.080 #### [facility] Laboratory [address] [facility] [address] FINGERSTICK GLU 88 mg/dL Normal 74-106 [facility] Comment on above: Result Comment: MIKAELA GEMENT OF PATIENT CARE PER NURSING PROTOCOL Performed By: #### L 501.080 #### [facility] [address] [facility] [address] FINGERSTICK GLU 59 mg/dL Low 74-106 [facility] Comment on above: Result Comment: MIKAELA GEMENT OF PATIENT CARE PER NURSING PROTOCOL Performed By: #### L 501.080 #### [facility] [address], [address] FINGERSTICK GLU 64 mg/dL Low 74-106 [facility] Comment on above: Result Comment: MIKAELA GEMENT OF PATIENT CARE PER NURSING PROTOCOL Performed By: #### L 501.080 #### [facility] [address], [address] FINGERSTICK GLU 62 mg/dL Low 74-106 [facility] Comment on above: Result Comment: MIKAELA GEMENT OF PATIENT CARE PER NURSING PROTOCOL Performed By: #### L 501.080 #### [facility] [address] [place], [address] FINGERSTICK GLU 91 mg/dL Normal 74-106 [facility] Comment on above: Result Comment: MIKAELA GEMENT OF PATIENT CARE PER NURSING PROTOCOL Performed By: #### L 501.080 #### [facility] [address], [address] FINGERSTICK GLU 74 mg/dL Normal 74-106 [facility] Comment on above: Result Comment: MIKAELA GEMENT OF PATIENT CARE PER NURSING PROTOCOL Performed By: #### L 501.080 #### [facility] [address], [address] Gl[facility] at [facility] deOrdered By: Edilma Goncalves on 10-15-2024 Bedside Glucose (Misc Panel) 88 mg/dL 74-106 [facility] Comment on above: MANAGEMENT OF PATIEN T CARE PER NURSING PROTOCOL MR/OB.VAGDELIon 10-15-2024 MR/OB.VAGDELI [facility] Medical Records Department [address] [address] OB Vaginal Delivery 10/15/24 1404 MR#: [id number] Acct: [id number] Name: BRIT VELASQUEZ Rep #: [id number] : 1990 34 From: Edilma Goncalves MD PCP: Cindy Hernandez, GREEN CHAINER-C Status:ADM IN Location: [id number] Assessment Plan (1) Diabetes mellitus during treated with insulin: PLAN: Decrease insulin levels, sees endocrinology. Continue can continuous glucose monitor (2) Type 1 diabetes mellitus with hyperglycemia: (3) (spontaneous vaginal delivery): (4) Single live : (5) Second degree perineal laceration: Maternal Data Information ORQUIDEA Calculator Estimated Delivery Date Method Current WG Current Estimate 10/25/24 Manual 38w 4d Final ORQUIDEA: 10/24/24 Gestational age: 38 4/7 Vaginal Delivery Maternal Presentation Maternal Presentation: Medically Indicated Induction Type of Induction: Pitocin, Drew Bulb and Amniotomy Vaginal Delivery Information Procedure Performed: Spontaneous Vaginal Delivery Surgeon/Practitioner: Edilma Goncalves Date of Procedure: 10/15/24 Pre-Procedure Diagnosis: Post-Procedure Diagnosis: same Type of anesthesia: Epidural Special Medications: none Estimated Blood Loss: 400 Time of Delivery: 13:38 Findings Description of procedure: A vigorous female was delivered NAFISA over a second-degree perineal laceration. The remainder the infant was delivered with maternal pushing and gentle traction only in less than 15 seconds. The Pitocin infusion was initiated for active management of the third stage. The cord was clamped and cut after cord pulsations ceased. The was attended to by the waiting nursing staff. The placenta was delivered spontaneously and intact. The cervix and vagina were intact. The second-degree perineal laceration was repaired with 3-0 Vicryl suture in a running standard fashion. Sponge and needle counts were correct. A vaginal sweep was completed by me. Presentation: NAFISA Amniotic Membrane Rupture Type: Artificial Amniotic Fluid Description: Clear Placental Delivery Description: Spontaneous Placenta Disposition: [facility] Specimen collected: No Cord Vessel Description: 3 Vessels Cord Entanglement: None Infant A Gender: Female (Annmarie) (1 minute): 8 (5 minute): 9 Delayed Cord Clamping: Yes Television Agent meat grader: No Post Vaginal Deli Medications given after delivery: IV Pitocin Episiotomy Description: None Laceration: 2nd degree Complication Complications: No 10/15/24 1407 Cosigner Signature (if applicable): CC: TOSHIA Hernandez; Dr. Edilma Goncalves MD Signed Normal [facility] Amphetamines Screen method > 1000 ng/mL Ql (U)Ordered By: Spencer Cordova on 10-14-2024 Amphetamines Ql (U) Negative <1000 ng/mL [facility] Urine Barbiturates Screen Negative < 200 ng/mL [facility] Bedside Glucoseon 10-14-2024 FINGERSTICK GLU 71 mg/dL Low 74-106 [facility] Comment on above: Result Comment: MIKAELA GEMENT OF PATIENT CARE PER NURSING PROTOCOL Performed By: #### L 501.080 #### [facility] [address], [address] FINGERSTICK GLU 86 mg/dL Normal 74-106 [facility] Comment on above: Result Comment: MIKAELA GEMENT OF PATIENT CARE PER NURSING PROTOCOL Performed By: #### L 501.080 #### [facility] [address], [address] FINGERSTICK GLU 118 mg/dL High 74-106 [facility] Comment on above: Result Comment: MIKAELA GEMENT OF PATIENT CARE PER NURSING PROTOCOL Performed By: #### L 501.080 #### [facility] [address], [address] FINGERSTICK GLU 172 mg/dL High 74-106 [facility] Comment on above: Result Comment: MIKAELA GEMENT OF PATIENT CARE PER NURSING PROTOCOL Performed By: #### L 501.080 #### [facility] [address], [address] CBC W/Diff, Automatedon 09-27 Absolute Lymph 1.62 X10 3/uL Normal 0.83-4.51 [facility] Comment on above: Performed By: #### L [id number], L506.0400 #### [facility] [address], [address] Absolute Neut 4.3 X10 3/uL Normal 2.0-7.7 [facility] Comment on above: Performed By: #### L [id number], L506.0400 #### [facility] [address], [address] Basophils/100 WBC (Bld) 0.5 % Normal 0-1 [facility] Comment on above: Performed By: #### L [id number], L506.0400 #### [facility] [address], [address] Eosinophils/100 WBC (Bld) 0.5 % Normal 0-5 [facility] Comment on above: Performed By: #### L [id number], [id number] #### [facility] [address], [address] Erythrocyte distribution width (RBC) [Ratio] 13.6 % Normal 11.6-14.6 [facility] Comment on above: Performed By: #### L [id number], L506.0400 #### [facility] [address], [address] Hematocrit (Bld) [Volume fraction] 29.2 % Low 37-47 [facility] Comment on above: Performed By: #### L [id number], L506.0400 #### [facility] [address], [address] Hemoglobin (Bld) [Mass/Vol] 10.1 g/dL Low 12.0-15.0 [facility] Comment on above: Performed By: #### L [id number], L506.0400 #### [facility] [address], [address] IG% 0.900 Normal 0.0-0.9 [facility] Comment on above: Result Comment: IG% - Immature Granulocytes (promyelocytes, myelocytes and metamyelocytes) > 1% indicates that a LEFT SHIFT is Present. Performed By: #### L [id number], L506.0400 #### [facility] [address], [address] Lymphocytes/100 WBC (Bld) 24.6 % Normal 19-41 [facility] Comment on above: Performed By: #### L [id number], L506.0400 #### [facility] [address], [address] MCH (RBC) [Entitic mass] 29.3 pg Normal 27.0-32.0 [facility] Comment on above: Performed By: #### L [id number], L506.0400 #### [facility] [address], [address] MCHC (RBC) [Mass/Vol] 34.6 g/dL Normal 32-36 [facility] Comment on above: Performed By: #### L [id number], L506.0400 #### [facility] [address], [address] MCV (RBC) [Entitic vol] 84.6 fL Normal 81-99 [facility] Comment on above: Performed By: #### L [id number], L506.0400 #### [facility] [address], [address] Monocytes/100 WBC (Bld) 7.8 % Normal 0-10 [facility] Comment on above: Performed By: #### L [id number], L506.0400 #### [facility] [address], [address] Neutrophils/100 WBC (Bld) 65.7 % Normal 47-70 [facility] Comment on above: Performed By: #### L [id number], L506.0400 #### [facility] [address], [address] Nucleated RBC (Bld) [#/Vol] 0 10*3/uL Normal 0-5 [facility] Comment on above: Performed By: #### L 501.9520, L506.0400 #### [facility] [address], [address] Platelet mean volume (Bld) [Entitic vol] 10.0 fL Normal 6.2-12.0 [facility] Comment on above: Performed By: #### L 501.9520, L506.0400 #### [facility] [address], [address] Platelets (Bld) [#/Vol] 155 10*3/uL Normal 150-450 [facility] Comment on above: Performed By: #### L [id number], L506.0400 #### [facility] [address] [place], [address] RBC (Bld) [#/Vol] 3.45 10*6/uL Low 4.2-5.4 [facility] Comment on above: Performed By: #### L [id number], L506.0400 #### [facility] [address], [address] RDW SD 41.1 fl Normal 35.1-43.9 [facility] Comment on above: Performed By: #### L [id number], L506.0400 #### [facility] [address], [address] WBC (Bld) [#/Vol] 6.6 10*3/uL Normal 4.4-11.0 [facility] Comment on above: Performed By: #### L [id number], L506.0400 #### [facility] [address], [address] H AND P Exam - OB/GYNon 09-27 H&P Exam - CULINARY DIRECTOR [facility] Medical Records Department [address] [address] H P Exam - CULINARY DIRECTOR 10/14/241925 MR#: [id number] Acct: [id number] Name: BRIT VELASQUEZ Rep #: [id number] : 1990 34 From: Spencer Cordova MD PCP: Cindy Hernandez, GREEN CHAINER-C Status:ADM IN Location: [id number] HPI - General General Date of Admission: 10/14/24 Date of Service: 10/14/24 HPI Narrative BRIT VELASQUEZ, is a 34 F who presents for induction. Maternal Data Information ORQUIDEA Calculator Estimated Delivery Date Method Current WG Current Estimate 10/25/24 Manual 38w 3d PFSH [facility] Medical History (Updated 10/14/24 @ 19:[address] Spencer Cordova MD) Elevated blood pressure reading Type 1 diabetes mellitus with hyperglycemia Heart murmur Palpitations Acne JOHN (generalized anxiety disorder) Vaginal bleeding between periods Hypotension PFO (patent foramen ovale) Hemiplegia affecting left nondominant side History of migraine Hx of hypercholesterolemia Diabetes mellitus Chronic migraine Former tobacco use History of alcohol abuse Vitamin D deficiency Hypothyroidism Mitral valve prolapse Hypoglycemia Hyperlipidemia Abnormal laboratory test Hyperglycemia, unspecified Graves disease Sleep apnea Polycystic ovarian disease Home Medications ???Medication ???Instructions ???Recorded ???Last Taken ???Type lancets 28 gauge (FreeStyle #60 ea 08/29/18 Unknown Rx Lancets) blood-glucose meter (FreeStyle 12/03/23 Unknown History Lite Meter kit) BD Ultra-Fine Angie Pen Needle 32 #100 ea 01/16/24 Unknown Rx gauge x 5/32 (pen needle, diabetic) metformin 1,000 mg tablet 1,000 mg PO BID #60 tabs 02/18/24 Unknown Rx aspirin 81 mg tablet,delayed 81 mg PO QDAY 04/07/24 Unknown His tory release vitamin#30 30 mg iron-10 1 cap PO DAILY 04/07/24 Unknown H istory mg iron-folic acid 1 mg-omg3 capsule Tresiba FlexTouch U-100 100 20 unit (0.2 mL) subcut DAILY #18 04/14/24 Unknown Rx unit/mL (3 mL) subcutaneous pen mL (insulin degludec) blood-glucose sensor (FreeStyle #6 ea 05/26/24 Unknown Rx Vipin 3 Plus Sensor device) sertraline 100 mg tablet 100 mg PO QDAY #90 tabs 07/14/24 U nknown Rx Dexcom G7 Sensor (blood-glucose #3 ea 07/17/24 Unknown Rx sensor) insulin aspart U-100 100 unit/mL 5 unit (0.05 mL) subcut TID #15 mL 08/25/24 Unknown Rx (3 mL) subcutaneous pen (Novolog FlexPen U-100 Insulin aspart) ferrous sulfate 325 mg (65 mg 325 mg PO QDAY 09/08/24 Unknown Hi story iron) tablet insulin lispro 100 unit/mL 8 unit (0.08 mL) subcut TID #15 mL 09/08/24 Unknown Rx subcutaneous pen (Humalog KwikPen (U-100) Insulin) levothyroxine 125 mcg tablet 125 mcg PO .QD, 1.5 on Sunday 0 10/03/24 Unknown Rx #96 tabs Allergy/AdvReac Type Severity Reaction Status Date / Time adhesive (adhesives) Allergy Intermediate Rash Verified 09/08/24 09:58 Family History Father Hypertension High cholesterol Mother Alcoholism Grandmother Arthritis Grandfather Cancer Surgical History Hx of thyroidectomy Social History household members: significant other Smoking Status: Former smoker quit date: 07/30/16 Tobacco: How many years used: 9 Electronic Cigarette Use: not used how long ago did patient quit smoking: Quit 6-7 years prior, smoked 1 ppd since teen until quit. second hand exposure: No alcohol intake: former details: Former heavy drinker, sober 6-7 years. substance use type: former substance user Date of last use: Jun 2023 used medical marijuana caffeine: No what type of physical activity do you participate in: walking, running, bicycling and weight training frequency: 3-4 times per week seatbelt use: always NST FHR Rate Baby A Baseline: 135 Variability:: Moderate Accelerations:: 15 x 15 Decelerations:: None Uterine Activity:: Irritability Physical Exam Const alert, oriented x3 and no apparent distress GI soft to palpation, non-tender and non-distended Inspection: gravid external exam normal Narrative: cvx - 1/60/-3, intracervical drew placed Labs Labs Labs: Hct 42.9 % (37-47) Hgb 14.3 g/dL (12.0-15.0) Hep Bs Antigen Negative (Negative) Hepatitis C Ab (EIA) <0.1 s/co ratio (0.0-0.9) Chlamydia DNA (VENUS) Negative (Negative) N.gonorrhoeae DNA (VENUS) Negative (Negative) HIV 1 2 Antibody Non-Reactive (Nonreactive) Miscellaneous Test Assessment Plan (1) Diabetes mellitus during treated with insulin: PLAN: Plan Admit to L D Induction - s/p drew placement. Will start pitocin. GBS negative. Pain - e (more content not included)... Normal [facility] L509.8002on 10-14-2024 Syphilis Abs Non-Reactive Normal Nonreactive [facility] Comment on above: Performed By: #### L [id number], L506.0400 #### [facility] [address] [place], [place], [id number] Methadone, urineOrdered By: Spencer Cordova on 10-14-2024 Urine Methadone Screen Negative < 300 ng/mL [facility] No Panel InformationOrdered By: Spencer Cordova on 10-14-2024 Urine Buprenorphine Qualitative Negative < 200 ng/mL [facility] Urine Oxycodone Screen Negative < 100 ng/mL [facility] Quantitative urine opiates m easurementOrdered By: Spencer Cordova on 10-14-2024 Opiates Ql (U) Negative < 300 ng/mL [facility] T. pallidum abOrdered By: Stephanie Cordova on 10-14-2024 Syphilis Total Antibody Non-Reactive Nonreactiv e [facility] Type AND Screenon 10-14-2024 Ab SCREEN GEL Negative Normal [facility] Comment on above: Order Comment: Labor Performed By: #### L [id number], L506.0400 #### [facility] [address] [place], [place], [id number] ABO and Rh group Nom (Bld) Blood group B Rh(D) positive Normal [facility] Comment on above: Order Comment: Labor Performed By: #### L [id number], L506.0400 #### [facility] [address], [address] Urine Drug Screen (VISTA)on 10-14-2024 AMPHETAMINES Normal <1000 ng/mL [facility] Comment on above: Result Comment: Canc elled via OM: MD Ordered Performed By: #### L [id number], L506.0400 #### [facility] [address], [address] BARBITIURATES Normal < 200 ng/mL [facility] Comment on above: Result Comment: Canc elled via OM: MD Ordered Performed By: #### L [id number], L506.0400 #### [facility] [address], [address] BENZODIAZIPINE Normal < 200 ng/mL [facility] Comment on above: Result Comment: Canc elled via OM: MD Ordered Performed By: #### L 501.9520, L506.0400 #### [facility] [address], [address] BUP Ur Drug Scr Normal < 200 ng/mL [facility] Comment on above: Result Comment: Canc elled via OM: MD Ordered Performed By: #### L 501.9520, L506.0400 #### [facility] [address], [address] COCAINE Normal < 300 ng/mL [facility] Comment on above: Result Comment: Canc elled via OM: MD Ordered Performed By: #### L 501.9520, L506.0400 #### [facility] [address], [address] Fentanyl Normal [facility] Comment on above: Result Comment: Canc elled via OM: MD Ordered Performed By: #### L 501.9520, L506.0400 #### [facility] [address], [address] METHADONE Normal < 300 ng/mL [facility] Comment on above: Result Comment: Canc elled via OM: MD Ordered Performed By: #### L 501.9520, L506.0400 #### [facility] [address], [address] OPIATES Normal < 300 ng/mL [facility] Comment on above: Result Comment: Canc elled via OM: MD Ordered Performed By: #### L 501.9520, L506.0400 #### [facility] [address], [address] OXYCODONE Normal < 100 ng/mL [facility] Comment on above: Result Comment: Canc elled via OM: MD Ordered Performed By: #### L [id number], L506.0400 #### [facility] [address], [address] PCP Normal < 25 ng/mL [facility] Comment on above: Result Comment: Canc elled via OM: MD Ordered Performed By: #### L 501.9520, L506.0400 #### [facility] [address], [address] THC Normal < 50 ng/mL [facility] Comment on above: Result Comment: Canc elled via OM: MD Ordered Performed By: #### L 501.9520, L506.0400 #### [facility] [address], [address] AMPHETAMINES Negative Normal <1000 ng/mL [facility] Comment on above: Performed By: #### L 501.080 #### [facility] [address], [address] BARBITIURATES Negative Normal < 200 ng/mL [facility] Comment on above: Performed By: #### L [id number] #### [facility] [address], [address] BENZODIAZIPINE Negative Normal < 200 ng/mL [facility] Comment on above: Performed By: #### L [id number] #### [facility] [address], [address] BUP Ur Drug Scr Negative Normal < 200 ng/mL [facility] Comment on above: Performed By: #### L [id number] #### [facility] [address], [address] COCAINE Negative Normal < 300 ng/mL [facility] Comment on above: Performed By: #### L [id number] #### [facility] [address], [address] Fentanyl Negative Normal [facility] Comment on above: Performed By: #### L [id number] #### [facility] [address], [address] METHADONE Negative Normal < 300 ng/mL [facility] Comment on above: Performed By: #### L [id number] #### [facility] [address], [address] OPIATES Negative Normal < 300 ng/mL [facility] Comment on above: Performed By: #### L [id number] #### [facility] [address], [address] OXYCODONE Negative Normal < 100 ng/mL [facility] Comment on above: Performed By: #### L [id number] #### [facility] [address], [address] PCP Negative Normal < 25 ng/mL [facility] Comment on above: Performed By: #### L 501.080 #### [facility] [address], [address] THC Negative Normal < 50 ng/mL [facility] Comment on above: Performed By: #### L 501.080 #### [facility] [place], [address] Urine benzodiazepine levelOr dered By: Spencer Cordova on 10-14-2024 Benzodiazepines Ql (U) Negative < 200 ng/mL [facility] Urine cocaine levelOrdered B y: Spencer Cordova on 10-14-2024 Cocaine Ql (U) Negative < 300 ng/mL [facility] Urine aqhem-7-llhvgammqfibum abinol (THC) measurementOrdered By: Spencer Cordova on 10-14-2024 Cannabinoids Screen Ql (U) Negative < 50 ng/mL [facility] Urine phencyclidine (PCP) de tectionOrdered By: Spencer Cordova on 10-14-2024 Phencyclidine Ql (U) Negative < 25 ng/mL [facility] fentaNYL Screen Ql (U)Ordere d By: Spencer Cordova on 10-14-2024 Urine Fentanyl Screen Negative [facility] Biophysical profile.jessica dy movement USon 2024 [facility] Radiology Study observation (narrative) [facility] URINE OB DIP B/Oon 5 Glucose Ql (U) Negative Neg mg/dL [facility] Protein.monoclonal (U) [Mass/Vol] trace Neg mg/dL [facility] Biophysical profile.jessica dy movement USon 09-30-2024 [facility] Radiology Study observation (narrative) [facility] GROUP B STREPTOCOCCUS BY PCR , ROUTINE SCREENINGon 09-26-2024 GROUP B STREPTOCOCCUS BY PCR, ROUTINE SCREENING GROUP B STREP PCR: Negative for Group B Streptococcus by PCR. Normal [facility] Comment on above: Performed By: #### G BPCR ####[facility] [id number] [place] [address] [place] URINE OB DIP B/Oon 5 Glucose Ql (U) Negative Neg mg/dL [facility] Interpretation and review of laboratory results Normal [facility] Protein.monoclonal (U) [Mass/Vol] Negative Neg mg/dL [facility] Biophysical profile.jessica dy movement USon 09-23-2024 [facility] Radiology Study observation (narrative) [facility] URINE OB DIP B/Oon 5 Glucose Ql (U) trace Neg mg/dL [facility] Protein.monoclonal (U) [Mass/Vol] Negative Neg mg/dL [facility] Biophysical profile.jessica dy movement USon 09-16-2024 [facility] Radiology Study observation (narrative) [facility] URINE OB DIP B/Oon 5 Glucose Ql (U) 100 mg/dL Neg [facility] Interpretation and review of laboratory results Normal [facility] Protein.monoclonal (U) [Mass/Vol] Negative Neg mg/dL [facility] Biophysical profile.jessica dy movement USon 09-09-2024 [facility] Radiology Study observation (narrative) [facility] Direct serum free thyroxine (FT4) measurementOrdered By: Isabel Zuniga on 09-08-2024 Free T4 [Mass/Vol] 1.15 ng/dL 0.76-1.46 [facility] Endocrinology Visit Reporton 09-08-2024 Endocrinology Visit Report [facility] [address] [facility] [address] [place] [address] OFFICE VISIT Date of Service: 09/08/24 MR#: [id number] Acct: [id number] Name: BRIT VELASQUEZ Rep #: [id number] : 1990 Provider: Catherine Pratt Age/Sex: 33/F [place] [facility] [place]: Signed Intake Vital Signs 07/14/24 11:35 09/08/24 09:55 Height 5 ft 3 in 5 ft 3 in Weight: 177 lb 2 oz 182 lb 6 oz BMI 31.4 32.3 BP 105/70 110/73 Blood Pressure Location Rt brachial Rt brachial Position Sitting Sitting Pulse 78 72 Pulse Source Monitor Monitor Pulse Oximetry (%) 98 99 Oxygen Delivery Method room air room air Intake Visit Reasons: 2 M FU Chief Complaint: Diabetes Allergies adhesive (adhesives) Allergy (Intermediate, Verified 09/08/24 09:58) Rash Medications ???Medication ???Instructions ???Recorded ???Confirmed ???Type lancets 28 gauge (FreeStyle #60 ea 08/29/18 09/08/24 Rx Lancets) blood-glucose meter (FreeStyle 12/03/23 09/08/24 History Lite Meter kit) BD Ultra-Fine Angie Pen Needle 32 #100 ea 01/16/24 09/08/24 Rx gauge x 5/32 (pen needle, diabetic) metformin 1,000 mg tablet 1,000 mg PO BID #60 tabs 02/18/24 09/08/24 Rx aspirin 81 mg tablet,delayed 81 mg PO QDAY 04/07/24 09/08/24 Hi story release vitamin#30 30 mg iron-10 1 cap PO DAILY 04/07/24 09/08/24 History mg iron-folic acid 1 mg-omg3 capsule Tresiba FlexTouch U-100 100 20 unit (0.2 mL) subcut DAILY #18 04/14/24 09/08/24 Rx unit/mL (3 mL) subcutaneous pen mL (insulin degludec) blood-glucose sensor (FreeStyle #6 ea 05/26/24 09/08/24 Rx Vipin 3 Plus Sensor device) levothyroxine 125 mcg tablet 125 mcg PO QDAY #90 tabs 07/14/24 09/08/24 Rx sertraline 100 mg tablet 100 mg PO QDAY #90 tabs 07/14/24 0 09/08/24 Rx Dexcom G7 Sensor (blood-glucose #3 ea 07/17/24 09/08/24 Rx sensor) insulin aspart U-100 100 unit/mL 5 unit (0.05 mL) subcut TID #15 mL 08/25/24 09/08/24 Rx (3 mL) subcutaneous pen (Novolog FlexPen U-100 Insulin aspart) ferrous sulfate 325 mg (65 mg 325 mg PO QDAY 09/08/24 09/08/24 H istory iron) tablet insulin lispro 100 unit/mL 8 unit (0.08 mL) subcut TID #15 mL 09/08/24 09/08/24 Rx subcutaneous pen (Humalog KwikPen (U-100) Insulin) [facility] Medical History Type 1 diabetes mellitus with hyperglycemia Heart murmur Palpitations Acne JOHN (generalized anxiety disorder) Vaginal bleeding between periods Hypotension PFO (patent foramen ovale) Hemiplegia affecting left nondominant side History of migraine Hx of hypercholesterolemia Diabetes mellitus Chronic migraine Former tobacco use History of alcohol abuse Contact with and (suspected) exposure to other viral communicable diseases URI (upper respiratory infection) Vitamin D deficiency Hypothyroidism Mitral valve prolapse Hypoglycemia Hyperlipidemia Alcohol abuse Abnormal laboratory test Hyperglycemia, unspecified Hyperthyroidism Diabetes mellitus type 2, controlled, without complications Graves disease Sleep apnea Polycystic ovarian disease Surgical History Hx of thyroidectomy Family History Father Hypertension High cholesterol Mother Alcoholism Grandmother Arthritis Grandfather Cancer Social History household members: significant other Smoking Status: Former smoker quit date: 07/30/16 Tobacco: How many years used: 9 Electronic Cigarette Use: not used how long ago did patient quit smoking: Quit 6-7 years prior, smoked 1 ppd since teen until quit. second hand exposure: No alcohol intake: former details: Former heavy drinker, sober 6-7 years. substance use type: former substance user Date of last use: Jun 2023 used medical marijuana caffeine: No what type of physical activity do you participate in: walking, running, bicycling and weight training frequency: 3-4 times per week seatbelt use: always HPI HPI Chief Complaint: Diabetes Details: BRIT VELASQUEZ, is a 33 F who presents to the office today for follow up. GMI is 6% He had a recent A1C < 6% She is currently 3rd trimester of . She is taking basal bolus and using Vipin CGM. Upload shows good control with some highs post supper. She has hypothyroidism and she is due for labs. She is doing great. ROS Const Constitutional: No fatigue or weight change ENT ENT: No dizziness/vertigo Cardio Cardiology: No chest pain at rest, chest pain with exertion, shortness of breath or palpitations Skin Skin: No wounds Endo Endocrine: No fatigue or weight change Exam (more content not included)... Normal [facility] T4 Free Directon 09-08-2024 T4 FREE DIRECT 1.15 ng/dL Normal 0.76-1.46 [facility] Comment on above: Performed By: #### L 683.9696, L506.0400 #### [facility] [address], [address] TSH QnOrdered By: Isabel Zuniga on 09-08-2024 Thyroid Stimulating Hormone (TSH) 7.560 uIU/mL High 0.358-3.740 [facility] Thyroid Stim Hormone (TSH)on 09-08-2024 TSH 7.560 uIU/mL High 0.358-3.740 [facility] Comment on above: Performed By: #### L 501.9520, L506.0400 #### [facility] [address] [place], [place], [address] Biophysical profile.jessica dy movement USon 09-02-2024 [facility] Radiology Study observation (narrative) [facility] Examination level ultrasound on 08-29-2024 [facility] Radiology Study observation (narrative) [facility] URINE OB DIP B/Oon Glucose Ql (U) Negative Neg mg/dL [facility] Interpretation and review of laboratory results Normal [facility] Protein.monoclonal (U) [Mass/Vol] trace Neg mg/dL [facility] CBC W Auto Differential pane l (Bld)on 07-31-2024 Basophils (Bld) [#/Vol] 10*3/uL Normal <0.11 [facility] Comment on above: Order Comment: Speci men Type: BLOOD SPECIMEN Ordering Facility: [facility] Address: [address] [place] [address] Performed By: #### 5 7021-8 #### [facility] CLIA [id number] [address] [place] [address] [place] Basophils/100 WBC (Bld) 0.3 % [facility] Comment on above: Order Comment: Speci men Type: BLOOD SPECIMEN Ordering Facility: [facility] Address: [address] [place] [address] Performed By: #### 5 7021-8 #### [facility] CLIA [id number] [address] [place] [address] [place] Differential cell count method Nom (Bld) Auto Normal [facility] Comment on above: Order Comment: Speci men Type: BLOOD SPECIMEN Ordering Facility: [facility] Address: [address] [place] [address] Performed By: #### 5 7021-8 #### [facility] CLIA [id number] [address] [place] [address] [place] Eosinophils (Bld) [#/Vol] 0.06 10*3/uL Normal <0.46 [facility] Comment on above: Order Comment: Speci men Type: BLOOD SPECIMEN Ordering Facility: [facility] Address: [address] [place] [address] Performed By: #### 5 7021-8 #### [facility] CLIA [id number] [address] [place] [address] [place] Eosinophils/100 WBC (Bld) 0.9 % Normal [facility] Comment on above: Order Comment: Speci men Type: BLOOD SPECIMEN Ordering Facility: [facility] Address: [address] [place] [address] Performed By: #### 5 7021-8 #### [facility] CLIA [id number] [address] [place] [address] [place] Erythrocyte distribution width (RBC) [Ratio] 12.0 % Normal 11.5-15.0 [facility] Comment on above: Order Comment: Speci men Type: BLOOD SPECIMEN Ordering Facility: [facility] Address: [address] [place] [address] Performed By: #### 5 7021-8 #### [facility] CLIA [id number] [address] [place] [address] [place] Hematocrit (Bld) [Volume fraction] 31.6 % Low 36.0-46.0 [facility] Comment on above: Order Comment: Speci men Type: BLOOD SPECIMEN Ordering Facility: [facility] Address: [address] [place] [address] Performed By: #### 5 7021-8 #### [facility] CLIA [id number] [address] [place] [address] [place] Hemoglobin (Bld) [Mass/Vol] 10.9 g/dL Low 11.5-15.5 [facility] Comment on above: Order Comment: Speci men Type: BLOOD SPECIMEN Ordering Facility: [facility] Address: [address] [place] [address] Performed By: #### 5 7021-8 #### [facility] CLIA [id number] [address] [place] [address] [place] Immature granulocytes (Bld) [#/Vol] 0.05 10*3/uL Normal <0.10 [facility] Comment on above: Order Comment: Speci men Type: BLOOD SPECIMEN Ordering Facility: [facility] Address: [address] [place] [address] Performed By: #### 5 7021-8 #### [facility] CLIA [id number] [address] [place] [address] [place] Immature granulocytes/100 WBC (Bld) 0.7 % Normal [facility] Comment on above: Order Comment: Speci men Type: BLOOD SPECIMEN Ordering Facility: [facility] Address: [address] [place] [address] Performed By: #### 5 7021-8 #### [facility] CLIA [id number] [address] [place] [address] [place] Lymphocytes (Bld) [#/Vol] 1.66 10*3/uL Normal 1.00-4.00 [facility] Comment on above: Order Comment: Speci men Type: BLOOD SPECIMEN Ordering Facility: [facility] Address: [address] [place] [address] Performed By: #### 5 7021-8 #### [facility] CLIA [id number] [address] [place] [address] [place] Lymphocytes/100 WBC (Bld) 23.8 % Normal [facility] Comment on above: Order Comment: Speci men Type: BLOOD SPECIMEN Ordering Facility: [facility] Address: [address] [place] [address] Performed By: #### 5 7021-8 #### [facility] CLIA [id number] [address] [place] [address] [place] MCH (RBC) [Entitic mass] 30.4 pg Normal 26.0-34.0 [facility] Comment on above: Order Comment: Speci men Type: BLOOD SPECIMEN Ordering Facility: [facility] Address: [address] [place] [address] Performed By: #### 5 7021-8 #### [facility] CLIA [id number] [address] [place] [address] [place] MCHC (RBC) [Mass/Vol] 34.5 g/dL Normal 30.5-36.0 [facility] Comment on above: Order Comment: Speci men Type: BLOOD SPECIMEN Ordering Facility: [facility] Address: [address] [place] [address] Performed By: #### 5 7021-8 #### [facility] CLIA [id number] [address] [place] [address] [place] MCV (RBC) [Entitic vol] 88.3 fL Normal 80.0-100.0 [facility] Comment on above: Order Comment: Speci men Type: BLOOD SPECIMEN Ordering Facility: [facility] Address: [address] [place] [address] Performed By: #### 5 7021-8 #### [facility] CLIA [id number] [address] [place] [address] [place] Monocytes (Bld) [#/Vol] 0.50 10*3/uL Normal <0.87 [facility] Comment on above: Order Comment: Speci men Type: BLOOD SPECIMEN Ordering Facility: [facility] Address: [address] [place] [address] Performed By: #### 5 7021-8 #### [facility] CLIA [id number] [address] [place] [address] [place] Monocytes/100 WBC (Bld) 7.2 % Normal [facility] Comment on above: Order Comment: Speci men Type: BLOOD SPECIMEN Ordering Facility: [facility] Address: [address] [place] [address] Performed By: #### 5 7021-8 #### [facility] CLIA [id number] [address] [place] [address] [place] Neutrophils (Bld) [#/Vol] 4.68 10*3/uL Normal 1.45-7.50 [facility] Comment on above: Order Comment: Speci men Type: BLOOD SPECIMEN Ordering Facility: [facility] Address: [address] [place] [address] Performed By: #### 5 7021-8 #### [facility] CLIA [id number] [address] [place] [address] [place] Neutrophils/100 WBC (Bld) 67.1 % Normal [facility] Comment on above: Order Comment: Speci men Type: BLOOD SPECIMEN Ordering Facility: [facility] Address: [address] [place] [address] Performed By: #### 5 7021-8 #### [facility] CLIA [id number] [address] [place] [address] [place] Nucleated RBC (Bld) [#/Vol] 10*3/uL Normal <0.01 [facility] Comment on above: Order Comment: Speci men Type: BLOOD SPECIMEN Ordering Facility: [facility] Address: [address] [place] [address] Performed By: #### 5 7021-8 #### [facility] CLIA [id number] [address] [place] [address] [place] Nucleated RBC/100 WBC (Bld) [Ratio] 0.0 /100 WBC Normal [facility] Comment on above: Order Comment: Speci men Type: BLOOD SPECIMEN Ordering Facility: [facility] Address: [address] [place] [address] Performed By: #### 5 7021-8 #### [facility] CLIA [id number] [address] [place] [address] [place] Platelet mean volume (Bld) [Entitic vol] 9.9 fL Normal 9.0-12.7 [facility] Comment on above: Order Comment: Speci men Type: BLOOD SPECIMEN Ordering Facility: [facility] Address: [address] [place] [address] Performed By: #### 5 7021-8 #### [facility] CLIA [id number] [address] [place] [address] [place] Platelets (Bld) [#/Vol] 199 10*3/uL Normal 150-400 [facility] Comment on above: Order Comment: Speci men Type: BLOOD SPECIMEN Ordering Facility: [facility] Address: [address] [place] [address] Performed By: #### 5 7021-8 #### [facility] CLIA [id number] [address] [place] [address] [place] RBC (Bld) [#/Vol] 3.58 10*6/uL Low 3.90-5.20 [facility] Comment on above: Order Comment: Speci men Type: BLOOD SPECIMEN Ordering Facility: [facility] Address: [address] [place] [address] Performed By: #### 5 7021-8 #### [facility] CLIA [id number] [address] [place] [address] [place] WBC (Bld) [#/Vol] 6.97 10*3/uL Normal 3.70-11.00 [facility] Comment on above: Order Comment: Speci men Type: BLOOD SPECIMEN Ordering Facility: [facility] Address: [address] [place] [address] Performed By: #### 5 7021-8 #### [facility] CLIA [id number] [facility] [place] [address] [place] Examination level ultrasound on 07-31-2024 [facility] Radiology Study observation (narrative) [facility] Ferritin SerPl-mCncon 2024 Ferritin [Mass/Vol] 11.0 ng/mL Low 14.7-205.1 [facility] Comment on above: Order Comment: Speci men Type: BLOOD SPECIMENOrdering Facility: [facility] Address: [address] [place] [address] Performed By: #### 7 3752-8, 16549-0, 2276-4 ####[facility] [id number] [place] [address] [place] Iron and Iron binding capaci ty panelon 07-31-2024 Iron [Mass/Vol] 55 ug/dL Normal 41-186 [facility] Comment on above: Order Comment: Speci men Type: BLOOD SPECIMENOrdering Facility: [facility] Address: [address] [place] [address] Performed By: #### 7 3752-8, 30792-9, 6-4 ####[facility] [id number] [place] [address] [place] Iron binding capacity [Mass/Vol] 493 ug/dL High 232-386 [facility] Comment on above: Order Comment: Speci men Type: BLOOD SPECIMENOrdering Facility: [facility] Address: [address] [place] [address] Performed By: #### 7 3752-8, 29177-9, 6-4 ####[facility] [id number] [place] [address] [place] Iron/TIBC [Molar ratio] 11.2 % Low 15.0-57.0 [facility] Comment on above: Order Comment: Speci men Type: BLOOD SPECIMENOrdering Facility: [facility] Address: [address] [place] [address] Performed By: #### 7 3752-8, 14400-6, 6-4 ####[facility] [id number] [place] [address] [place] Reagin and Treponema pallidu m IgG and IgM [Interp]on 07-31-2024 T. pallidum IgG+IgM IA Ql (S) Non-Reactive Normal Nonreactive [facility] Comment on above: Order Comment: Speci men Type: BLOOD SPECIMENOrdering Facility: [facility] Address: [address] [place] [address] Performed By: #### 7 3752-8, 04499-8, 2275-10 ####[facility] [id number] [place] [address] [place] Reagin+T pallidum IgG+IgM Se rPl-Impon 07-31-2024 Reagin and Treponema pallidum IgG and IgM [Interp] Cannot exclude recent Treponemal infection if specimen collected within 7-10 days after appearance of suspect lesions or 2-3 weeks after an exposure. Clinical correlation is required. Normal [facility] Comment on above: Order Comment: Speci men Type: BLOOD SPECIMENOrdering Facility: [facility] Address: [address] [place] [address] Performed By: #### 7 3752-8, 28649-8, 2275-4 ####[facility] [id number] [place] [address] [place] Direct serum free thyroxine (FT4) measurementOrdered By: Isabel Zuniga on 07-14-2024 Free T4 [Mass/Vol] 1.13 ng/dL 0.76-1.46 [facility] Endocrinology Visit Reporton 07-14-2024 Endocrinology Visit Report [facility] [address] [place] [address] OFFICE VISIT Date of Service: 07/14/24 MR#: [id number] Acct: [id number] Name: BRIT VELASQUEZ Rep #: [id number] : 1990 Provider: Catherine Pratt Age/Sex: 33/F [place] [facility] [place]: Signed Intake Vital Signs 04/07/24 14:48 07/14/24 11:35 Height 5 ft 3 in 5 ft 3 in Weight: 161 lb 177 lb 2 oz BMI 28.5 31.4 BP 107/71 105/70 Blood Pressure Location Lt brachial Rt brachial Position Sitting Sitting Pulse 78 78 Pulse Source Monitor Monitor Pulse Oximetry (%) 99 98 Oxygen Delivery Method room air room air Intake Visit Reasons: 3 M FU Chief Complaint: Diabetes Is patient in pain?: No Allergies No Known Allergies Allergy (Verified 07/14/24 11:38) Medications ???Medication ???Instructions ???Recorded ???Confirmed ???Type lancets 28 gauge (FreeStyle #60 ea 08/29/18 07/14/24 Rx Lancets) blood-glucose meter (FreeStyle 12/03/23 07/14/24 History Lite Meter kit) BD Ultra-Fine Angie Pen Needle 32 #100 ea 01/16/24 07/14/24 Rx gauge x 5/32 (pen needle, diabetic) levothyroxine 112 mcg tablet 112 mcg PO DAILY #90 tabs 01/16/24 07/14/24 Rx metformin 1,000 mg tablet 1,000 mg PO BID #60 tabs 02/18/24 07/14/24 Rx insulin aspart U-100 100 unit/mL 5 unit (0.05 mL) subcut TID #15 mL 02/22/24 07/14/24 Rx (3 mL) subcutaneous pen (Novolog FlexPen U-100 Insulin aspart) aspirin 81 mg tablet,delayed 81 mg PO QDAY 04/07/24 07/14/24 History release vitamin#30 30 mg iron-10 1 cap PO DAILY 04/07/24 07/14/24 History mg iron-folic acid 1 mg-omg3 capsule Tresiba FlexTouch U-100 100 20 unit (0.2 mL) subcut DAILY #18 04/14/24 07/14/24 Rx unit/mL (3 mL) subcutaneous pen mL (insulin degludec) blood-glucose sensor (FreeStyle #6 ea 05/26/24 07/14/24 Rx Vipin 3 Plus Sensor device) sertraline 100 mg tablet 100 mg PO QDAY #90 tabs 07/14/24 07/14/24 Rx Patient : Yes (6 Months) PFSH Medical History Type 1 diabetes mellitus with hyperglycemia Heart murmur Palpitations Acne JOHN (generalized anxiety disorder) Vaginal bleeding between periods Hypotension PFO (patent foramen ovale) Hemiplegia affecting left nondominant side History of migraine Hx of hypercholesterolemia Diabetes mellitus Chronic migraine Former tobacco use History of alcohol abuse Contact with and (suspected) exposure to other viral communicable diseases URI (upper respiratory infection) Vitamin D deficiency Hypothyroidism Mitral valve prolapse Hypoglycemia Hyperlipidemia Alcohol abuse Abnormal laboratory test Hyperglycemia, unspecified Hyperthyroidism Diabetes mellitus type 2, controlled, without complications Graves disease Sleep apnea Polycystic ovarian disease Surgical History Hx of thyroidectomy Family History Father Hypertension High cholesterol Mother Alcoholism Grandmother Arthritis Grandfather Cancer Social History household members: significant other Smoking Status: Former smoker quit date: 07/30/16 Tobacco: How many years used: 9 Electronic Cigarette Use: not used how long ago did patient quit smoking: Quit 6-7 years prior, smoked 1 ppd since teen until quit. second hand exposure: No alcohol intake: former details: Former heavy drinker, sober 6-7 years. substance use type: former substance user Date of last use: Jun 2023 used medical marijuana caffeine: No what type of physical activity do you participate in: walking, running, bicycling and weight training frequency: 3-4 times per week seatbelt use: always HPI HPI Chief Complaint: Diabetes Details: BRIT VELASQUEZ, is a 33 F who presents to the office today for follow up. A1C is 5.2% She is taking 11 units of basal insulin and up to 10 units of rapid insulin at meals. She is 25 weeks plus gestation. She will be induced at 39 weeks. She has hypothyroidism and is taking levothyroxine. She is due for thyroid labs. She doing a fabulous job! ROS Const Constitutional: No fatigue or weight change ENT ENT: No dizziness/vertigo Cardio Cardiology: No chest pain at rest, chest pain with exertion, shortness of breath or palpitations Skin Skin: No wounds Endo Endocrine: No fatigue or weight change Exam Const General: cooperative, healthy appearing, comfortable, no acute distress, well developed and not cushingoid Nutritional Appearance: well nourished Orientation: alert, awake and oriented x3 HENMT Head: normal to inspection Ears: hearing grossly normal bila (more content not included)... Normal [facility] - Hematology and Cell countson 07-14-2024 HbA1c (Bld) [Mass fraction] 5.2 % 4.2-6.3 [facility] T4 Free Directon 07-14-2024 T4 FREE DIRECT 1.13 ng/dL Normal 0.76-1.46 [facility] Comment on above: Performed By: #### L 506.0400, L501.9520 #### [facility] [address] [facility]. [place], [place], [address] TSH QnOrdered By: Isabel Zuniga on 07-14-2024 Thyroid Stimulating Hormone (TSH) 6.850 uIU/mL High 0.358-3.740 [facility] Thyroid Stim Hormone (TSH)on 07-14-2024 TSH 6.850 uIU/mL High 0.358-3.740 [facility] Comment on above: Performed By: #### L 506.0400, L501.9520 #### [facility] [address] [facility] [place], [address] FETALon 07-08-2024 ++ -- --------++ [facility] Echocardiogram Report ++ --------++ NAME: MISS BRIT VELASQUEZ : 1990 PT ID#: [id number] Age: 33 years Sex: F STUDY DATE: 07/08/2024 10:54:01 AM ORQUIDEA: 10/25/2024 GA: 24w3d Image Quality: Technically difficult and adequate. Diagnosing Physician: Mary Giordano MD Inventory Control Analyst: Alba Moody [facility] 2nd Inventory Control Analyst: Diagnosis: O24.012 Pre-existing type 1 diabetes mellitus in , second trimester; O35.2CX7Whsxhvoff abnormality and damage, single fetus or unspecified Indications: 76777, 65976, 88805 Echo, Complete (w/Doppler and color) Exam Location: [facility] (). Indications: Evaluate cardiac anatomy and function. Exam Quality: Images were suboptimal secondary to Position and Poor Acoustic Windows. Color Doppler was utilized to interrogate the cardiac valves assessed. Spectral Doppler was utilized to determine the flow velocities and pressure gradients reported in this exam. History: Type 1 DM Parameters: Single/Multi: Dave Position: position is cephalic Biometry: Biometry Table: Biparietal Diameter 5.56 cm Abdominal Circumference 18.40 cm Femur Length 4.09 cm Estimated Weight 561.65 g Vessels: Three-vessel umbilical cord is present. Umbilical artery flow Doppler is normal. Umbilical venous flow Doppler is normal. Ductus Venosus Doppler is normal. Cerebral Artery Doppler is normal. UA S/D 3.6 UA PI 1.19 MCA PI 2.35 Rate and Rhythm: heart rhythm is normal. HR 125 bpm Mechanical TX 123 ms Segmental Anatomy, Cardiac Position and Situs: The segmental anatomy and situs are normal. Normal visceral situs. The heart position is within the left hemithorax (levo position). Levocardia (apex to the left). The aorta is to the right of the pulmonary artery. Segmental anatomy is S,D,S. Systemic Veins: Right superior vena cava is right sided and drains normally to the right atrium. The inferior vena cava is right sided and inserts normally into the right atrium. Pulmonary Veins: At least one pulmonary vein on each side drains to the left atrium. Atria: The right atrium is normal in size. The left atrium is normal in size. Widely patent foramen ovale with right to left shunting. Tricuspid Valve: There is no tricuspid valve stenosis. There is no tricuspid valve regurgitation. Right Ventricle: There is qualitatively normal right ventricular size and wall thickness with normal systolic function. Mitral Valve: There is no mitral valve regurgitation. There is no mitral valve stenosis. Left Ventricle: Normal left ventricular size and wall thickness with normal systolic function. VSD: There is no obvious ventricular septal defect. RVOT: There is no right ventricular outflow tract obstruction. Pulmonary Valve: There is no pulmonary valve stenosis. There is no pulmonary valve regurgitation. Pulmonary Arteries: The main and branch pulmonary arteries appear normal. LVOT: There is no left ventricular outflow tract obstruction. Aorta: Aortic arch is widely patent. Ductus Arteriosus: Ductal arch is widely patent with normal intrauterine right to left flow. Pericardium: There is no pericardial effusion. Measurements: 2D: Z-Score Aortic annulus 3.4 mm -1.67 MV annulus 6.5 mm 0.10 Pulmonary annulus 4.9 mm -0.40 TV annulus 5.6 mm -1.42 Summary 1. Segmental anatomy and situs are normal. 2. Widely patent foramen ovale with right to left shunting. 3. Qualitatively normal right ventricular size and wall thickness with normal systolic function. 4. Normal left ventricular size and wall thickness with normal systolic function. 5. Aortic arch is widely patent. 6. Ductal arch is widely patent with normal intrauterine right to left flow. 7. heart rhythm and rate are normal. 8. No pericardial effusion. Mary Giordano MD *Electronically signed on 07/08/2024 at 2:13:33 PM Final CC [employer] Medical Image : [id number] See Link below for Image Normal [facility] Examination level ultrasound on 07-03-2024 [facility] Radiology Study observation (narrative) [facility] URINE OB DIP B/Oon Glucose Ql (U) Negative Neg mg/dL [facility] Protein.monoclonal (U) [Mass/Vol] Negative Neg mg/dL [facility] ALPHA FETOPRO MATERNALon AFP, MATERNAL 1.29 MoM Normal [facility] Comment on above: Order Comment: Speci men Type: BLOOD SPECIMEN Ordering Facility: [facility] Address: [address] [place] [address] Result Comment: 75.5 2 ng/mL Performed By: #### 5 5454-3 #### [facility] CLIA [id number] [address] [place] [address] [place] DATE OF COLLECTION #1 06/13/24 Normal [facility] Comment on above: Order Comment: Speci men Type: BLOOD SPECIMEN Ordering Facility: [facility] Address: [address] [place] [address] Performed By: #### 5 5454-3 #### [facility] CLIA [id number] [address] [place] [address] [place] DATE RECEIVED 06/16/24 Normal [facility] Comment on above: Order Comment: Speci men Type: BLOOD SPECIMEN Ordering Facility: [facility] Address: [address] [place] [address] Performed By: #### 5 5454-3 #### [facility] CLIA [id number] [address] [place] [address] [place]QUIDE[place] 10/25/24 Normal [facility] Comment on above: Order Comment: Speci men Type: BLOOD SPECIMEN Ordering Facility: [facility] Address: [address] [place] [address] Performed By: #### 5 5454-3 #### [facility] CLIA [id number] [address] [place] [address] [place] GESTATION AT DATE OF SAMPLE 20 weeks 6 days (by dates) Normal [facility] Comment on above: Order Comment: Speci men Type: BLOOD SPECIMEN Ordering Facility: [facility] Address: [address] [place] [address] Performed By: #### 5 5454-3 #### [facility] CLIA [id number] [address] [place] [address] [place] INSULIN DEPENDENT DIABETES None Normal [facility] Comment on above: Order Comment: Speci men Type: BLOOD SPECIMEN Ordering Facility: [facility] Address: [address] [place] [address] Performed By: #### 5 5454-3 #### [facility] CLIA [id number] [address] [place] [address] [place] IVF No Normal [facility] Comment on above: Order Comment: Speci men Type: BLOOD SPECIMEN Ordering Facility: [facility] Address: [address] [place] [address] Performed By: #### 5 5454-3 #### [facility] CLIA [id number] [address] [place] [address] [place] LMP 01/19/24 Normal [facility] Comment on above: Order Comment: Speci men Type: BLOOD SPECIMEN Ordering Facility: [facility] Address: [address] [place] [address] Performed By: #### 5 5454-3 #### [facility] CLIA [id number] [address] [place] [address] [place] MATERNAL AFP COMMENT See comments below Normal [facility] Comment on above: Order Comment: Speci men Type: BLOOD SPECIMEN Ordering Facility: [facility] Address: [address] [place] [address] Result Comment: INTE RPRETATION Screening result : Screen negative Risk of NTD : 1 in 3,700 Comment : The interpretation is for NTD only A screen negative result does not exclude the possibility of a neural tube defect, because screening does not detect all affected pregnancies Performed By: #### 5 5454-3 #### [facility] CLIA [id number] [address] [place] [address] [place] MATERNAL AGE AT ORQUIDEA 34 years Normal [facility] Comment on above: Order Comment: Kevin wolff Type: BLOOD SPECIMEN Ordering Facility: [facility] Address: [address] [place] [address] Performed By: #### 5 5454-3 #### [facility] CLIA [id number] [address] [place] [address] [place] PATIENT'S WEIGHT DAY OF COLLECTION 174 lb. Normal [facility] Comment on above: Order Comment: Kevin wolff Type: BLOOD SPECIMEN Ordering Facility: [facility] Address: [address] [place] [address] Performed By: #### 5 5454-3 #### [facility] CLIA [id number] [address] [place] [address] [place] INTERP-MATERNAL AFP Negative Normal Screen Negative [facility] Comment on above: Order Comment: Kevin wolff Type: BLOOD SPECIMEN Ordering Facility: [facility] Address: [address] [place] [address] Performed By: #### 5 5454-3 #### [facility] CLIA [id number] [address] [place] [address] [place] PREVIOUS NTD None Normal [facility] Comment on above: Order Comment: Kevin wolff Type: BLOOD SPECIMEN Ordering Facility: [facility] Address: [address] [place] [address] Performed By: #### 5 5454-3 #### [facility] CLIA [id number] [address] [place] [address] [place] RISK OF NTD ;1:3700 Normal [facility] Comment on above: Order Comment: Speci men Type: BLOOD SPECIMEN Ordering Facility: [facility] Address: [address] [place] [address] Performed By: #### 5 5454-3 #### [facility] CLIA [id number] [address] [place] [address] OF [place] SAMPLE #1 [id number] Normal [facility] Comment on above: Order Comment: Speci men Type: BLOOD SPECIMEN Ordering Facility: [facility] Address: [address] [place] [address] Performed By: #### 5 5454-3 #### [facility] CLIA [id number] [address] [place] [address] OF [place] STAFF REVIEW (MATERNAL SCREENS) Reviewed by Mikal Chou MD, Ph.D ([id number]) Normal [facility] Comment on above: Order Comment: Speci men Type: BLOOD SPECIMEN Ordering Facility: [facility] Address: [address] [place] [address] Performed By: #### 5 5454-3 #### [facility] CLIA [id number] [address] [place] [address] OF [place] Justin 06-03-2024 ROBERTN Telephone (OBGYWM) BRIT VELASQUEZ ([id number]) 1990 F Date Time Provider Department 06/03/24 BAMBI GLORIA During your visit today, we recorded the following information about you: Anna Barraza RN 06/03/2024 4:24 PM Signed ----- Message from Bambi Gloria APRN.CNCatherine sent at 06/03/2024 3:53 PM EST ----- Anatomy ultrasound reviewed. Screening echocardiogram ordered Return in 2-4 weeks to complete anatomic survey. Please make sure they are scheduled. Please place copy in OB chart. AMBROSIO Vail Trisha, RN 06/03/2024 4:25 PM Signed Saw KJ today. Please file u/s order so patient is able to schedule. MARY Saul Karmon, MD 06/03/2024 4:45 PM Signed Order placed in visit encounter for 4 week US. MD Hemant Granda Trisha, RN 06/03/2024 4:51 PM Signed Left message for patient to call office. MARY Saul Trisha, RN 06/12/2024 8:55 AM Signed Patient called back and is now scheduled. Anna Barraza RN Allergies As of Date: 06/03/2024 Noted Allergy Reaction Rey ordoñez [Other] 09/29/2011 14 - Other: See Comments Comments: Face breaks out in purple spots when she eats rey ordoñez. Date Reviewed: 06/03/2024 Reviewed by: Spencer Cordova MD - Fully Assessed Reason for Visit: Orders [681] Primary Visit Diagnosis:Encounter for follow-up ultrasound of anatomy [Z36.2] Prescriptions as of 06/12/2024 - metFORMIN (GLUCOPHAGE) 1,000 mg tablet Take 1,000 mg by mouth daily with breakfast. - aspirin, enteric coated (ECOTRIN LOW STRENGTH) 81 mg EC tablet Take 2 tablets by mouth once daily. - no122/iron/folic acid ( MULTI ORAL) Take by mouth. - sertraline (ZOLOFT) 50 mg tablet Take 50 mg by mouth once daily. Taking 100mg - levothyroxine (SYNTHROID) 112 mcg tablet Take 112 mcg by mouth daily before breakfast. One tablet dailt exceptfor one day a week she takes 1 1/2 tablets - blood sugar diagnostic (FREESTYLE INSULINX TEST STRIPS) test strip Test blood sugar(s) 3 times daily. Dx: Type 2 DM - Uncontrolled E11.65 Insulin: No - Blood-Glucose Meter (FREESTYLE INSULINX) [place]ee Dx: Type 2 DM - Uncontrolled E11.65 - lancets (FREESTYLE LANCETS) 28 gauge misc Test blood sugar(s) 2 times daily. 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] 06/01/2011 03/17/2024 Uncontrolled type 2 diabetes mellitus without c*07/07/2017 03/26/2024 Pre-existing type 1 diabetes mellitus in pregna*03/17/2024 Mixed hyperlipidemia [E78.2] 03/17/2024 Generalized anxiety disorder [F41.1] 03/17/2024 History of Graves' disease [Z86.39] 03/17/2024 History of thyroidectomy, total [E89.0] 03/17/2024 History of PCOS [Z87.42] 03/17/2024 04/22/2024 History of sleep apnea [Z86.69] 03/17/2024 PFO (patent foramen ovale) [Q21.12] 03/17/2024 Rosacea [L71.9] 03/17/2024 with uncertain date of last menstrual*03/17/2024 04/22/2024 Vaginal yeast infection [B37.31] 03/24/2024 04/22/2024 Supervision of high risk in [facility]*03/26/2024 04/22/2024 Encounter Status:Closed by ANNA BARRAZA on 06/09/24 Normal [facility] Examination level ultrasound on 06-03-2024 Indication Detailed anatomic survey Diabetes mellitus, Hypothyroidism Impression The patient is referred for a detailed anatomic survey. - Single, live, intrauterine . - biometry is consistent with the established gestational age. - No malformations were visualized on a detailed anatomic survey, although some anatomical structures were suboptimally seen as detailed below. - The amniotic fluid volume is normal amount. - The placenta is anterior, fundal. - The Transabdominal cervical length measures 46.6 mm with no evidence of funneling or other dynamic changes. - Not all structural malformations can be detected by ultrasound examination. Recommendations Screening echocardiogram ordered Return in 2-4 weeks to complete anatomic survey Maternal Assessment Height 160 cm Height (ft) 5 ft Height (in) 3 in Physical Exam Initial weight (lb) 153 lb Initial BMI 27.10 kg/m Maternal assessment other: 2 Para 0 Method Transabdominal ultrasound examination. View: Suboptimal view: limited by position Dave . Number of fetuses: 1 Dating LMP on: 01/19/2024 GA by LMP 19 w + 3 d ORQUIDEA by LMP: 10/25/2024 GA by prior assessment 19 w + 3 d ORQUIDEA by prior assessment: 10/25/2024 Ultrasound examination on: 06/03/2024 GA by U/S based upon: AC, BPD, Femur, HC GA by U/S 18 w + 3 d ORQUIDEA by U/S: 11/01/2024 Assigned: based on stated ORQUIDEA, selected on 06/03/2024 Assigned GA 19 w + 3 d Assigned ORQUIDEA: 10/25/2024 General Evaluation Cardiac activity present. FHR 151 bpm. movements: present. Presentation: transverse head left Placenta: Placental site: anterior, fundal Umbilical cord: Cord vessels: 3 vessel cord Amniotic fluid: Amount of AF: normal amount. MVP 4.8 cm Growth Overview Exam date GA BPD (mm) HC (mm) AC (mm) FL (mm) HL (mm) EFW (g) 06/03/2024 19w 3d 39.4 5% 146.9 8% 134.5 28% 28.9 44% 27.4 27% 252 12% Biometry Standard BPD 39.4 mm 18w 0d 5% Hadlock OFD 52.5 mm 17w 4d 3% Nicolaides HC 146.9 mm 17w 5d 8% Price Cerebellum tr 19.0 mm 18w 4d 21% Hill Nuchal fold 3.6 mm AC 134.5 mm 18w 6d 28% Hadlock Femur 28.9 mm 19w 0d 44% Price Humerus 27.4 mm 18w 5d 27% Price EFW 252 g 18w 4d 12% Hadlock EFW (lb) 0 lb EFW (oz) 9 oz EFW by: Hadlock (HC-AC-FL) Extended Licensed Marriage And Family Therapist 7.1 mm CM 4.6 mm 40% Nicolaides Extremities / Bony Struc FL / HC 0.20 96% Hadlock Other Structures FHR 151 bpm Anatomy Cranium: normal Lateral ventricles: normal Choroid plexus: normal Midline falx: normal Cavum septi pellucidi: normal Cerebellum: normal Cisterna magna: normal Head / Neck Vermis: normal Neck: normal Nuchal fold: normal Lips: normal Profile: normal Nose: normal Face Maxilla: normal Mandible: normal Orbits: normal Lens: normal 4-chamber view: normal RVOT view: normal LVOT view: suboptimal 3-vessel view: normal 3-ivmukh-biocvtc view: normal Heart / Thorax Situs: situs solitus (normal) Aortic arch view: suboptimal SVC: suboptimal IVC: suboptimal Cardiac axis: normal Rt lung: normal Lt lung: normal Diaphragm: normal Cord insertion: normal Stomach: normal Kidneys: normal Bladder: normal Genitals: normal Abdomen Abdom. wall: normal Cervical spine: normal Thoracic spine: normal Lumbar spine: normal Sacral spine: normal Arms: normal Legs: normal Rt upper arm: normal Rt forearm: normal Rt hand: normal Rt fingers: normal Lt upper arm: normal Lt forearm: normal Lt hand: normal Lt fingers: normal Rt upper leg: normal Rt lower leg: normal Rt foot: normal Lt upper leg: normal Lt lower leg: normal Lt foot: normal sex: female Wants to know sex: yes Maternal Structures Uterus / Cervix Uterus: Visualized Cervix: Visualized Approach: Transabdominal Cervical length 46.6 mm Other: Patient declined transvaginal ultrasound for cervical length. Ovaries / Tubes / Adnexa Rt ovary: Visualized Lt ovary: Not visualized Performed By: Polina Castilol, CLIFTONNC, RVT Read By: Miah Connors M.D. MATERNAL MEDICINE [facility] Radiology Study observation (narrative) [facility] URINE OB DIP B/Oon Glucose Ql (U) Negative Neg mg/dL [facility] Interpretation and review of laboratory results Normal [facility] Protein.monoclonal (U) [Mass/Vol] Negative Neg mg/dL [facility] [id number] PLUSon 04-23-2024 Cell-free DNA./Cell-free DNA.total Dosage of chromosome-specific cfDNA (cfDNA) [Molar fraction] 15% Normal [facility] Comment on above: Order Comment: Speci men Type: BLOOD SPECIMEN Ordering Facility: [facility] Address: [address] [place] [address] Performed By: #### 5 5454-3 #### [facility] CLIA [id number] [address] [place] [address] [place] Chr 13+18+21+X+Y aneuploidy Dosage of chromosome-specific cfDNA Ql (cfDNA) Negative Normal [facility] Comment on above: Order Comment: Speci men Type: BLOOD SPECIMEN Ordering Facility: [facility] Address: [address] [place] [address] Performed By: #### 5 5454-3 #### [facility] CLIA [id number] [address] [place] [address] OF [place] Chr 21 trisomy Dosage of chromosome-specific cfDNA Ql (cfDNA) Negative Normal [facility] Comment on above: Order Comment: Speci men Type: BLOOD SPECIMEN Ordering Facility: [facility] Address: [address] [place] [address] Performed By: #### 5 5454-3 #### [facility] CLIA [id number] [address] [place] [address] [place] Chr X and Y aneuploidy risk Sequencing Ql (cfDNA) [Interp] Not detected Normal [facility] Comment on above: Order Comment: Speci men Type: BLOOD SPECIMEN Ordering Facility: [facility] Address: [address] [place] [address] Result Comment: Not Detected Not Detected Performed By: #### 5 5454-3 #### [facility] CLIA [id number] [address] [place] [address] [place] Citation Jayy (Reference lab test) Comment Normal [facility] Comment on above: Order Comment: Speci men Type: BLOOD SPECIMEN Ordering Facility: [facility] Address: [address] [place] [address] Result Comment: 1. P lisa LATHAM, et al. Jacque Med. 2012;14(3):296-305. 2. Liyah BOLTON et al. Prenat Diag. 2013;33(6):591-597. 3. Carlos Lopez et al. Clin Chem. 2015 Apr;61(4):608-616. 4. Diony LATHAM, et al. Jacque Med. 2011;13(11):913-920. 5. ACOG/SMFM Practice Bulletin No. 226, Apr 2020. Performed By: #### 5 5454-3 #### [facility] CLIA [id number] [address] [place] [address] [place] Gestational age Estimated from conception date Dave Normal [facility] Comment on above: Order Comment: Speci men Type: BLOOD SPECIMEN Ordering Facility: [facility] Address: [address] [place] [address] Performed By: #### 5 5454-3 #### [facility] CLIA [id number] [address] [place] [address] [place] GESTATIONALAGE AGE > OR = 9W Yes Normal [facility] Comment on above: Order Comment: Speci men Type: BLOOD SPECIMEN Ordering Facility: [facility] Address: [address] [place] [address] Performed By: #### 5 5454-3 #### [facility] CLIA [id number] [address] [place] [address] [place] Laboratory comment Jayy (Report) Comment Normal [facility] Comment on above: Order Comment: Kevin wolff Type: BLOOD SPECIMEN Ordering Facility: [facility] Address: [address] [place] [address] Result Comment: The MaterniT(R) 21 PLUS laboratory-developed test (LDT) analyzes circulating cell-free DNA from a maternal blood sample. This test is used for screening purposes and not diagnostic. Clinical correlation is recommended. Validation data on twin pregnancies is limited and the ability of this test to detect aneuploidy in higher multiple gestations has not yet been validated. Performed By: #### 5 5454-3 #### [facility] CLIA [id number] [address] [place] [address] [place] director of accounts receivable name Nom (Provider) Comment Normal [facility] Comment on above: Order Comment: Speci men Type: BLOOD SPECIMEN Ordering Facility: [facility] Address: [address] [place] [address] Result Comment: This specimen showed an expected representation of chromosome 21, 18 and 13 material. Clinical correlation is suggested. Comment Satya Villar MD, PhD, Director, [employer] Performed By: #### 5 5454-3 #### [facility] CLIA [id number] [address] [place] [place] [address] STATES OF [facility] LIMITATIONS OF THE TEST Comment Normal [facility] Comment on above: Order Comment: Kevin wolff Type: BLOOD SPECIMEN Ordering Facility: [facility] Address: [address] [place] [address] Result Comment: Whil e the results of these tests are highly reliable, discordant results, including inaccurate sex prediction, may occur due to placental, maternal, or mosaicism or neoplasm; vanishing twin; prior maternal organ transplant; or other causes. These tests are screening tests and not diagnostic; they do not replace the accuracy and precision of diagnosis with CVS or amniocentesis. A patient with a positive test result should be referred for genetic counseling and offered invasive diagnosis for confirmation of test results.[5] The results of this testing, including the benefits and limitations, should be discussed with a qualified healthcare provider. management decisions, including termination of the , should not be based on the results of these tests alone. The healthcare provider is responsible for the use of this information in the management of their patient. Sex chromosomal aneuploidies are not reportable for known multiple gestations. A negative result does not ensure an unaffected nor does it exclude the possibility of other chromosomal abnormalities or defects which are not a part of these tests. An uninformative result may be reported, the causes of which may include, but are not limited to, insufficient sequencing coverage, noise or artifacts in the region, amplification or sequencing bias, or insufficient fraction. These tests are not intended to identify pregnancies at risk for neural tube defects or ventral wall defects. Testing for whole chromosome abnormalities (including sex chromosomes) and for subchromosomal abnormalities could lead to the potential discovery of both and maternal genomic abnormalities that could have major, minor, or no, clinical significance. Evaluating the significance of a positive or a non-reportable result may involve both invasive testing and additional studies on the mother. Such investigations may lead to a diagnosis of maternal chromosomal or subchromosomal abnormalities, which on occasion may be associated with benign or malignant maternal neoplasms. These tests may not accurately identify triploidy, balanced rearrangements, or the precise location of subchromosomal duplications or deletions; these may be detected by diagnosis with CVS or amniocentesis. The ability to report results may be impacted by maternal BMI, maternal weight, maternal systemic lupus erythematosus (SLE) and/or by certain pharmaceutical agents such as low molecular weight heparin (for example: Lovenox(R), Xaparin(R), Clexane(R) and Fragmin(R)). Performed By: #### 5 5454-3 #### [facility] CLIA [id number] [address] [place] [address] [place] Monosomy X risk Dosage of chromosome-specific cfDNA Ql (Plasma cell-free+WBC DNA) [Interp] Not detected Normal [facility] Comment on above: Order Comment: Speci men Type: BLOOD SPECIMEN Ordering Facility: [facility] Address: [address] [place] [address] Performed By: #### 5 5454-3 #### [facility] CLIA [id number] [address] [place] [address] [place] NEGATIVE PREDICTIVE VALUE Note Normal [facility] Comment on above: Order Comment: Speci men Type: BLOOD SPECIMEN Ordering Facility: [facility] Address: [address] [place] [address] Result Comment: The Negative Predictive Value (NPV) for trisomy 21, 18, and 13 is greater than 99%. The NPV for SCA and ESS cannot be calculated as SCA and ESS are only reported when an abnormality is detected. Performed By: #### 5 5454-3 #### [facility] CLIA [id number] [address] [place] [address] [place] NOTE Comment Normal [facility] Comment on above: Order Comment: Speci men Type: BLOOD SPECIMEN Ordering Facility: [facility] Address: [address] [place] [address] Result Comment: See Notes [employer] is a subsidiary of [employer], using the brand [employer]. This test was developed and its performance characteristics determined by [employer]. It has not been cleared or approved by the Food and Drug Administration. This laboratory is certified under the Clinical Laboratory Improvement Amendments (CLIA) as qualified to perform high complexity clinical laboratory testing and accredited by the [employer] ([employer]). If there is future clinical need for adding MaterniT GENOME testing, this specimen will be available until term. [facility] samples will not be retained beyond 60 days. [facility] patients will have to send a new sample for re-sequencing ([facility] Test Code: [id number]). Performed By: #### 5 5454-3 #### [facility] CLIA [id number] [address] [place], [place] [address] [employer] Note Normal [facility] Comment on above: Order Comment: Speci men Type: BLOOD SPECIMEN Ordering Facility: [facility] Address: [address] [place] [address] Result Comment: ! Sex ! Accuracy: 99.4% ! ! ! ! Region (associated syndrome) ! Est. Sens# ! Est. Spec ! ! ! ! Trisomy 21 (Down Syndrome) ! 99.1% ! 99.9% ! ! ! ! Trisomy 18 (Steward Syndrome) ! >99.9% ! 99.6% ! ! ! ! Trisomy 13 (Patau Syndrome) ! 91.7% ! 99.7% ! ! ! ! Sex Chromosome Aneuploidies## ! 96.2% ! 99.7% ! ! ! * As reported in [facility] database nstd37 [https://www.ncbi.nlm.nih.gov/dbvar/studies/nstd37/ ] # Estimated Sensitivity. Sensitivity estimated across the observed size distribution of each syndrome [per [facility] database nstd37] and across the range of fractions observed in routine clinical NIPT. Actual sensitivity can also be influenced by other factors such as the size of the event, total sequence counts, amplification bias, or sequence bias. ## Dave gestation only. Performed By: #### 5 5454-3 #### [facility] CLIA [id number] [address] [place] [address] [place] POSITIVE PREDICTIVE VALUE N/A Normal [facility] Comment on above: Order Comment: Speci men Type: BLOOD SPECIMEN Ordering Facility: [facility] Address: [address] [place] [address] Performed By: #### 5 5454-3 #### [facility] [place] [id number] [address] [place] [address] [place] Reference Lab Test Method Comment Normal [facility] Comment on above: Order Comment: Speci men Type: BLOOD SPECIMEN Ordering Facility: [facility] Address: [address] [place] [address] Result Comment: See Notes Circulating cell-free DNA was purified from the plasma component of maternal blood. The extracted DNA was then converted into a genomic DNA library for aneuploidy analysis of chromosomes 21, 18, and 13 via next generation sequencing.[1] Optional findings based on the test order include sex chromosome aneuploidy (SCA)[2], and enhanced sequencing series (ESS)[3], which will only be reported on as an additional finding when an abnormality is detected. SCA testing includes information on X and Y representation, while ESS testing includes deletions in selected regions (22q, 15q, 11q, 8q, 5p, 4p, 1p) and trisomy of chromosomes 16 and 22. Performed By: #### 5 5454-3 #### [facility] [place] [id number] [address] [place] [address] [place] Sex Dosage of chromosome-specific cfDNA Nom (cfDNA) Comment Normal [facility] Comment on above: Order Comment: Speci men Type: BLOOD SPECIMEN Ordering Facility: [facility] Address: [address] [place] [address] Result Comment: Cons istent with Female Performed By: #### 5 5454-3 #### [facility] [place] [id number] [address] [place] [address] [place] Test performance information Jayy (Unsp spec) Comment Normal [facility] Comment on above: Order Comment: Speci men Type: BLOOD SPECIMEN Ordering Facility: [facility] Address: [address] [place] [address] Result Comment: The performance characteristics of the MaterniT(R) 21 PLUS laboratory-developed test (LDT) have been determined in a clinical validation study with women at increased risk for chromosomal aneuploidy.[1-4] Performed By: #### 5 5454-3 #### [facility] CLIA [id number] [address] [place] [address] [place] Trisomy 13 risk Dosage of chromosome-specific cfDNA Ql (cfDNA) [Interp] Negative Normal [facility] Comment on above: Order Comment: Speci men Type: BLOOD SPECIMEN Ordering Facility: [facility] Address: [address] [place] [address] Performed By: #### 5 5454-3 #### [facility] CLIA [id number] [address] [place] [address] [place] Trisomy 18 risk Dosage of chromosome-specific cfDNA Ql (Plasma cell-free+WBC DNA) [Interp] Negative Normal [facility] Comment on above: Order Comment: Speci men Type: BLOOD SPECIMEN Ordering Facility: [facility] Address: [address] [place] [address] Performed By: #### 5 5454-3 #### [facility] CLIA [id number] [address] [place] [address] [place] nuchal translucency me asured by USon 04-22-2024 Indication First trimester anatomic survey Diabetes mellitus Impression The patient is referred for a first trimester anatomy scan including nuchal translucency measurement as clinically indicated. - Single, live, intrauterine . - Columbine rump length measurement is consistent with the established gestational age. - A qualitative screen of the nuchal translucency and other anatomic structures was unremarkable on a complete first trimester anatomic assessment. - Not all structural malformations can be detected by ultrasound examination. Maternal Structures: Right Ovary: Size 29 mm x 14 mm x 15 mm Left Ovary: Size 27 mm x 29 mm x 23 mm Recommendations - A standard anatomic survey at 16 weeks and a detailed exam at 20 weeks is recommended for increased risk. Maternal Assessment Height 160 cm Height (ft) 5 ft Height (in) 3 in Physical Exam Initial weight (lb) 153 lb Initial BMI 27.10 kg/m Maternal assessment other: 2 Para 0 Method Transabdominal ultrasound examination Dave . Number of fetuses: 1 Dating LMP on: 01/19/2024 GA by LMP 13 w + 3 d ORQUIDEA by LMP: 10/25/2024 GA by prior assessment 13 w + 3 d ORQUIDEA by prior assessment: 10/25/2024 Ultrasound examination on: 04/22/2024 GA by U/S based upon: CRL GA by U/S 12 w + 6 d ORQUIDEA by U/S: 10/29/2024 Assigned: based on stated ORQUIDEA, selected on 04/22/2024 Assigned GA 13 w + 3 d Assigned ORQUIDEA: 10/25/2024 General Evaluation Cardiac activity present Placenta: anterior Cord vessels: 3 vessel cord Amniotic fluid: normal amount Biometry Standard FHR 157 bpm CRL 64.8 mm 12w 6d 13% [facility] First Trimester Anatomy Calvarium: normal Falx cerebri: normal Choroid plexus: normal Profile: normal Nasal bone: normal Retronasal triangle: normal Maxilla: normal Mandible: normal Nuchal translucency: Unremarkable Situs: normal Cardiac position: normal Cardiac axis: normal 4-chamber view: normal 4-chamber view with color: normal 5-mvbtpr-xusqmqa view: normal Abdominal cord insertion: normal Stomach: normal Kidneys: normal Bladder: normal Color doppler of perivesical umbilical arteries: normal Vertebral alignment: normal Arms: normal Hands: normal Legs: normal Feet: normal Maternal Structures Uterus / Cervix Uterus: Visualized Uterus length 123 mm Uterus width 96 mm Uterus height 89 mm Uterus Vol 549.6 cm Ovaries / Tubes / Adnexa Rt ovary: Visualized Rt ovary D1 29 mm Rt ovary D2 14 mm Rt ovary D3 15 mm Rt ovary Vol 3.3 cm Lt ovary: Visualized Lt ovary D1 27 mm Lt ovary D2 29 mm Lt ovary D3 23 mm Lt ovary Vol 9.3 cm Performed By: Polina Castillo RDMS, RVT Read By: Miah Connors M.D. MATERNAL MEDICINE [facility] Radiology Study observation (narrative) [facility] URINE OB DIP B/Oon Glucose Ql (U) Negative Neg mg/dL [facility] Interpretation and review of laboratory results Normal [facility] Protein.monoclonal (U) [Mass/Vol] Negative Neg mg/dL [facility] CARRIER SCREEN, STANDARDon 0 03-27-2024 CARRIER SCREEN RESULTS View results in Scanned Documents link when available. Normal [facility] Comment on above: Order Comment: Speci men Type: BLOOD SPECIMENOrdering Facility: [facility] Address: [address] [place] [address] Performed By: #### C RRSCN ####MYRIADCLIA [id number] [place] [address] HGB ELECTROPHORESIS FOR EVAL (LAB ORDER)on 03-27-2024 Hemoglobin A (Bld) [Mass fraction] 97.6 % Normal 96.2-98.0 [facility] Comment on above: Order Comment: Speci men Type: BLOOD SPECIMEN Ordering Facility: [facility] Address: [address] [place] [address] Performed By: #### 5 5454-3 #### [facility] CLIA [id number] [address] [place] [address] [place] Hemoglobin A2 (Bld) [Mass fraction] 2.4 % Normal 2.0-3.1 [facility] Comment on above: Order Comment: Speci men Type: BLOOD SPECIMEN Ordering Facility: [facility] Address: [address] [place] [address] Performed By: #### 5 5454-3 #### [facility] CLIA [id number] [address] [place] [address] [place] Hemoglobin Unsp Elph (Bld) [Mass fraction] No abnormal hemoglobin identified. Normal No abnormal hemoglobin identified. [facility] Comment on above: Order Comment: Speci men Type: BLOOD SPECIMEN Ordering Facility: [facility] Address: [address] [place] [address] Performed By: #### 5 5454-3 #### [facility] CLIA [id number] [address] [place] [address] [place] RBC PARAMETERS FOR HB IDon 0 03-27-2024 Erythrocyte distribution width (RBC) [Ratio] 12.2 % Normal 11.5-15.0 [facility] Comment on above: Order Comment: Speci men Type: BLOOD SPECIMENOrdering Facility: [facility] Address: [address] [place] [address] Performed By: #### L [id number] ####[facility] [id number] [place] [address] [place] Hematocrit (Bld) [Volume fraction] 36.7 % Normal 36.0-46.0 [facility] Comment on above: Order Comment: Speci men Type: BLOOD SPECIMENOrdering Facility: [facility] Address: [address] [place] [address] Performed By: #### L [id number] ####[facility] [id number] [place] [address] [place] Hemoglobin (Bld) [Mass/Vol] 12.2 g/dL Normal 11.5-15.5 [facility] Comment on above: Order Comment: Speci men Type: BLOOD SPECIMENOrdering Facility: [facility] Address: [address] [place] [address] Performed By: #### L [id number] ####[facility] [id number] [place] [address] [place] MCH (RBC) [Entitic mass] 30.0 pg Normal 26.0-34.0 [facility] Comment on above: Order Comment: Speci men Type: BLOOD SPECIMENOrdering Facility: [facility] Address: [address] [place] [address] Performed By: #### L [id number] ####[facility] [id number] [place] [address] [place] MCHC (RBC) [Mass/Vol] 33.2 g/dL Normal 30.5-36.0 [facility] Comment on above: Order Comment: Speci men Type: BLOOD SPECIMENOrdering Facility: [facility] Address: [address] [place] [address] Performed By: #### L [id number] ####[facility]IA [id number] [place] [address] [place] MCV (RBC) [Entitic vol] 90.2 fL Normal 80.0-100.0 [facility] Comment on above: Order Comment: Speci men Type: BLOOD SPECIMENOrdering Facility: [facility] Address: [address] [place] [address] Performed By: #### L [id number] ####[facility]IA [id number] [place] [address] [place] RBC (Bld) [#/Vol] 4.07 10*6/uL Normal 3.90-5.20 [facility] Comment on above: Order Comment: Speci men Type: BLOOD SPECIMENOrdering Facility: [facility] Address: [address] [place] [address] Performed By: #### L [id number] ####[facility]IA [id number] [place] [address] [place] HIGH RISK HUMAN PAPILLOMA SHAYLA (HPV), PCR FOR DETECTION AND GENOTYPINGOrdered By: Graciela Hanson on 03-24-2024 HPV 16 Ag Ql (Unsp spec) Not detected Not detected [facility] HPV 18 Ag Ql (Unsp spec) Not detected Not detected [facility] HPV 31+33+35+39+45+51+52+56 +58+59+66+68 DNA VENUS+probe Ql (Cvx) Not detected Not detected [facility] Comment on above: High Risk HPV Other Type includes HPV types 31, 33, 35, 39, 45, 51, 52, 56, 58, 59, 66 and 68. Interpretation and review of laboratory results Normal [facility] This test was developed and its performance characteristics determined by [facility]'s [facility] Pathology and Laboratory Medicine [place] ([facility]). It has not been cleared or approved by the FDA. -[facility] is regulated under CLIA as qualified to perform high-complexity testing. This test is used for clinical purposes. It should not be regarded as investigational or for research. [facility] No Panel InformationOrdered By: Lubna Mcfarland on 03-24-2024 [facility] PAP TESTOrdered By: Lubna Mcfarland on 03-24-2024 Case Report Gynecologic Cytology Report Case: [id number] Authorizing Provider: Bambi Gloria APRN.CNM Collected: 03/17/2024 11:51 AM Ordering Location: OB/Gynecology Received: 03/17/2024 12:33 PM First Screen: Lubna Mcfarland, CT, ASCP Specimen: Pap Test, ThinPrep, Cervix [facility] Clinical History Routine Exam (Indicate Weeks) [facility] Comment on above: 8wks HPV Reflex Yes HPV [facility] Interpretation Negative [facility] LMP 01/19/2024 [facility] Pap Disclaimer [id number] bG FuZzEwMzNcZnRuYmpcdWMx UHsqckQhQGusq6PrA4YgBq AwMFxhbnNpXGRlZmxhbmcx GRThDZE9cvWeZEJaXQbdEP RkKKogIz3woUTdwOeeAvGb KDXbg3ibckOGqojnpGb0n6 ysKDIjCgO2hWTrKLhzI0pb pkNhrHVkALHzSMx0tH24FV NcvK9vwMWjVZzvjyVcNkZ4 XRchMKRkLkQ5QEUqiQGlYB SvA8opFJXbITrxYXQdGYiz xPIfPJE1lFcib5D8vPSmiV DatFpeGwVkFnIoMlIAm3Xx TNh6kWtfC1GrZWRbKbK7qL QgUGFyYWdyYXBoIEZvbnQ7 dQ96PXnfdqX3gHXts3Rtd8 9zn398xE4ilCSzRGX4UCBn VVJamTKrQJQrHHQ4CQCgpC RzO2ceUTYkPU7akupbZIyq MAykJGZtdPJ3XXLklBIdU8 WfTVGlVWfgJAYeowj1KzGn Cv6lzFJvuDwmLJldf6ywg5 xtkCNkGri8EXGdZkNrJskb KQofu1Olf6njQNVcyo3vBF S6kVQaiZnpq5N6dNFrJJXe bXVwboPnVIOtHkI6WSgyHE 4swd82ATVsXAZ0fw2wcCVr jSrxmfEfuWAbATptS2TnXI Kij558JITeA9ShFXMik7W6 muXqKvNtVGQiyEY3skO9YA RtJTo8vPHqqiI5hbKyzVZo K4aixE1sLZDuKA7dlzfhx6 smVMexOOnwNBNpaJZ2qaF0 HZAtbRIoR6BmzE2oQQXsPL yfPKNvfzl6NgNyNw3ipYGa eTcyMFxzYmtwYWdlXHBnbm NvbnRccGduZGVjXHBsYWlu XHBsYWluXGYwXGZzMjRccW wmjYfhdW0dRrFzBhDuDamz IX4mNUSnJ3saySOdYEAmAH UoN8eoBsUjyX5lsQzuNXdm pxA0LHFqKTSXCERoE07zGO CpjQZnUVVlZ9OhAL5yiwmc qVKmhKWsv5VmX0NesjyoMT yfM1PpE0KiVcUoOqBux4Zj spNlAPUyvjAdbuEhvAh2fk GzP7R2nmG2kEYlNTYxuTFf R8McKL5awdqlpGYolCWbBM HnrOgry9p7yA8eMRWrGHMs ZWVkIGZvciByZXNjcmVlbm tfEtBwhNRhBBDtbN9ldoEk ZCBpbnRlcnZhbHMsIGFuZC BisDhbpNLbzRBxa5PaGPdz gNqnnt8frFiiwZ7jSdGkMl XbBunmDO8uHBDlS5lsmRTo BAGkGSBqC8slQjSnjH3bqU pnMUcosoLrNKQjmt43 [facility] PAP Silk Screener Comment l9xwzELdJCOkx8uoYWIh bG FuZzEwMzNcZnRuYmpcdWMx JLeuodEtFZdvq6FfD3XvSq AwMFxhbnNpXGRlZmxhbmcx SHBpKAJ2jpZyCYHyKLdsSI UmVFauDn8ehSOpnSpnLxPr TPDwy6sejiAEsmoxtIk7q0 wrPBVrXuA8oEAhFSgcM8az yaBadXIcSUBwSVx8hF37XE DboW0dzWKoKUzslmKbCtA4 OOmxJHUpLyL6RQZqfARmLR OxH4hhRTUqKKtpFFLzQFga bDRsHRK2aDsqr8Y7zLVpqS JktPusBlQtKjYyReHAo3Rh ODd5yCgrI4KoHEZeKaB6tW QgUGFyYWdyYXBoIEZvbnQ7 cK29BUfbbuF7hPNjp6Dku4 2cq160cI8udZLkQKD5XGQy IJLopJNdFYWjRBF6HLZyzW YlM6irAVNpQM8vqarhQWjl RKvyZPGzcMS2TILuvEXqR5 SdULGdVWumWQQmnax3HxAw Xf2glNRruQbiXDmxs3kfj7 xmaRVpYrq2ZNCpNfVfBari RKbwq8Prr5enBFGeyk1tXP X0oBJsgNuxh4R3vGPnMUEn eULxdeAlCGLqNuM2XHecNW 5zfa33QYQfUBM7yj4akWQp mSshphPzjDZyESkdG8XgHH Car506LKNdX5EbEKWjp1S7 phCcQoUtFYSwaOY9vsA2HT CaIRx9hSCmuoB8ewKarQTp Z9jtxV4pYRCkNY2hzrxek0 bnXMttSWxkPXMudYZ0xcP8 DQHpsINfM0BgaZ8tPNOxOQ lvKTXuusn0QuAtUn2nsBDq eTcyMFxzYmtwYWdlXHBnbm NvbnRccGduZGVjXHBsYWlu XHBsYWluXGYwXGZzMjRccW fxiTjzzY2tUcKdHyLsZtak NR3rIMVxM2dyqANjHMKkBO JlB4ocDjQkhN7nwKhbIYhu tbK5PWkpNAjbslMrsOYvrK 1lbiBoYXMgYmVlbiBhbmFs xFqoYQXlfAF8nCHsNQdxbf UsBBOaLB3uP4ztRcLSsEU2 CC5cXCXkICN7oO8wVVEnEF MujCGhrY6vBTWbDYLnTZQm ETqmc5qzbFYuIRM3nQmnlP Shd0Ynu8PpCEUzJWQhZHOe sqQ3x2M4ROssMLQ0RQf9JD LbqvulL1EowVFrd03eXSgr peVfXXYtYYFxHGYul4ViFo DqDx4ojH38vH4cQXP8aU9y XUHnNQMdwNFqpH9dFAVwMN bsB2XhLDFbyIDrOPDmTcPv bSBldmVyeSBzbGlkZSBhcm PwonQ9cJS1CXVgEbjkEXQl aZTdtDJviV8zoP4llFD8Hl xwbGFpblxmMVxmczIyXGxh quioYDHlWZaeU3spZhFqSX SizCbeGOdyu9QtYCIsTQQu MjJccGFyfX0= [facility] b1zmgSQwWWJot4riYEAz bG FuZzEwMzNcZnRuYmpcdWMx IHtccnRmMVxhbnNpXGRlZm lqlewcSPNbOYE8xhXwTTXt CNL3KKH2BmQnw1G3ZUVrYn IyHCZbUK1zbYylQGDsPH2o QOUkI4klgI6wuav8FoQsXA FmKbI0VZTcezA4Jlg3EOVh LMqrz0ejx7VeCJFrWJh0iQ tpXuHyHQRwa7xdxePwGkTb ECTkNAYbEXKdbZZhA421i0 rvm3haguWtvJW5ELWhIKO9 EWllmmUofgN9YIvxuYUiFc V2PJftqpNmSJrzhuKpqfMa Lwe7JIJvP308LZT9fYolt0 pjEXS0IMMmCHEcNfKwCe2i uVOaO142PWQwQTLPPCGykX w9MZHbmaBblrWmdXDUh813 F937r3jdXSCgnoZfrHrNub tnr6dkY210YFCvtRPootKu KzTeGDQxxJWqoZQ0CSKnMY 2flwuaFExyPKlsNRUtjcJ9 KCSzdCHmD0PyZYWnSD7oxs xqVIR3EKvjONPdAJW3LfFp BNNje4Qavnl6AfZdvb8euh 03QEH5v8VqqFmgZWW0HVI2 OlPjRv1djNQhSMRdEB0dKh NjcVLzPYNwqr66cScvTRel ywExyE8rHtSdTDSnwVDoSL BrVQ0evTIvIBSqrG2sxtzp XHBnYnJkcmhlYWRccGdicm JwVi2rmOzmBNC8IOigX1pb xE0gMpV4VIqtY9rktP7mDL l1VMertDO6AXEhwG0xBY3z ymjho8pjHOooJIxqCRFoio L0ksF5VRSoaWZkN3PqbJ6b CYOyVY5wxdeiw3woBEI4LR zsPKTcBOT3FpWvZYTxm5Te ntg1IxPjs7FnySKxMMizP4 8we467UNDlqlNyY5lssGTi nipypORccsklCJreitJ6GG FsXHBsYWluXGYxXGZzMjJc bGFuZzEwMzNcaGljaFxmMV osYqUzJQLdBHytG4yvQqFz ZnMyMiBUZWNobmljYWwgY2 0pzA2kSQ28MEDwnDEueTKg dG5rfM2tuUV2SUJeskRxgp kaFuKmBFXnt8AtOTFaSGOn Z2wvkzEpIQ3kAYWydF1lWp NTbQcuA7Ciu2YhIN7zmAs4 WZpxRIR0XTXiHAK7PrljiL UjJtBfQK2dtQAwJZjeUSe3 kvogV9ghZVTzZwDqXFJhP0 kNKPRcAaGWEEAuLwu6VRbx SUFyoDWioR20TDI6JhMeo8 J3OMFfCaZdRDBeMR0gtBsi URMgCQ9lTVPlS6awyO0rlg d0CmLjGBIoOyT2GGGiywF6 Fjk6MNKxBQkcl2fqa3GsVM AzKBo6mLooUwKsIUZqg3qi cyBcZmNoYXJzZXQwIEFyaW ZyS289t7jsh5eyexIldZD8 AYFxGFI3HNpqzkVznnV4GE rqlZKsRhH1ESzfznYiDJmm idNbwkUmVvl5HJVcG702UX E9rAroo9jlBBX5NMBpHQXe ZbRgHa7nsYTgK701CRQpGT BXVXXmaXf1PIKxhpRxmgZc dZKTb752Z559s4gvVJKkag TcvDfKxwjas5lsT694EPBc cGVydzEyMjQwXHBhcGVyaD M1DJUpBA9aojzhEXhuOMyc DPDhzbH0CZAilCKwT0FkKE ZzVC2bwhjlXNJ4TNftGFMf CJZ4TgPrXEAmo7Zzqzv4Qq Lrzy6kuq36YLK2s1YnsPhr NVO7NXS8TpYoEj4srYLrKN EnYS7qJiYefYLmZHLldi70 wPupQLirbmZdcY1rAgYxZA 2cnEetv41jUDGnSF3vgW8g hn0gebQyLWhoaQQjnLR8mz nuDXH1LKEphnHme5QpSAD7 dk4azUIsvIyufkFajAQnCN eoG9IgEOLln866MUJzA7Ni BFSve4N5hlGwKxBrWWMhzR O3fwT6YKMfTQv2xRWzsdF7 ygHxiOCxY5mksR6xOBEaQF 9xdxgam4yqGYieTMgiJNLw xRF6waT1XYLjxONiU8VufO 3yMHXaVBawFDOhsco3NrGw Xu4ogJBpwEpnLXziUvktJW dlXHBnbmNvbnRccGduZGVj XHBsYWluXHBsYWluXGYwXG TrWjSenGulqGazsS7qCvNk HfAmPbuuFL5mKSWeD3ifpJ OmIDJlTDQhB4xbEfXidF1e aFxmMVxmczIyIERpYWdub3 Q6kGPkaN04MJVnvnA7VSSf t91mkFUjWy5orNGxYMG2IC NsZXZlbGFuZCBDbGluaWMg PVenmUPmPKF4UXycg8ZbzW ChREH9OfagJW7tfCJeKGqd IFJkLCBNYXlmaWVsZCBIdH IrBY6XBAR3LLE3RQDgHIQF WRAqDTM9OXTcCzm3OuWbcE FyXHBhclxwYXJkXHBsYWlu ZTMsLLWyKsPeiTomwK9zNp ZoZzRdWazaOL9xUNRmG4jq zHToRHPqGIAzC5tnLnKgxQ 9jaFxmMVxjZjJcZnMyMlxs pJNvpDPUFLDvguU0r1I4NF xwbGFpblxmMVxmczIyXGxh nvvdZAHtDSicN4epTwOdXT CvvRidOYknn1CvWLEmNAAd CuMrMItaQWI0c7M1BXE6g9 QtJNFjBBEfvxDpvuosPQ2D XwafEDS4gI== [facility] Specimen Adequacy Satisfactory for interpretation. [facility] TYPE + SCREEN PRENATALon ABO group Nom (Bld) B [facility] Blood group antibody screen Ql Negative [facility] HIstorical Ab Scr Status Negative [facility] Rh Nom (Bld) Positive [facility] Type and Screen Expiration 03/22/2024 23:59 [facility] CBC panel Auto (Bld)on 03-19 Erythrocyte distribution width (RBC) [Ratio] 12.2 % 11.5 - 15.0 % [facility] Hematocrit (Bld) [Volume fraction] 36.9 % 36.0 - 46.0 % [facility] Hemoglobin (Bld) [Mass/Vol] 12.5 g/dL 11.5 - 15.5 g/dL [facility] Interpretation and review of laboratory results Normal [facility] MCH (RBC) [Entitic mass] 30.2 pg 26.0 - 34.[address] [facility] MCHC (RBC) [Mass/Vol] 33.9 g/dL 30.5 - 36.0 g/dL [facility] MCV (RBC) [Entitic vol] 89.1 fL 80.0 - 100.[address] [facility] Nucleated RBC (Bld) [#/Vol] NINF [facility] Platelet mean volume (Bld) [Entitic vol] 9.7 fL 9.0 - 12.[address] [facility] Platelets (Bld) [#/Vol] 209 10*3/uL [facility] RBC (Bld) [#/Vol] 4.14 10*6/uL 3.90 - 5.2 0 m/uL [facility] WBC (Bld) [#/Vol] 7.93 10*3/uL [facility] Erythrocyte distribution width (RBC) [Ratio] 12.2 % Normal 11.5-15.0 [facility] Comment on above: Order Comment: Speci men Type: BLOOD SPECIMEN Ordering Facility: [facility] Address: [address] [place] [address] Performed By: #### 5 5454-3 #### [facility] CLIA [id number] [address] [place] [address] [place] Hematocrit (Bld) [Volume fraction] 36.9 % Normal 36.0-46.0 [facility] Comment on above: Order Comment: Speci men Type: BLOOD SPECIMEN Ordering Facility: [facility] Address: [address] [place] [address] Performed By: #### 5 5454-3 #### [facility] CLIA [id number] [address] [place] [address] [place] Hemoglobin (Bld) [Mass/Vol] 12.5 g/dL Normal 11.5-15.5 [facility] Comment on above: Order Comment: Speci men Type: BLOOD SPECIMEN Ordering Facility: [facility] Address: [address] [place] [address] Performed By: #### 5 5454-3 #### [facility] CLIA [id number] [address] [place] [address] [place] MCH (RBC) [Entitic mass] 30.2 pg Normal 26.0-34.0 [facility] Comment on above: Order Comment: Speci men Type: BLOOD SPECIMEN Ordering Facility: [facility] Address: [address] [place] [address] Performed By: #### 5 5454-3 #### [facility] CLIA [id number] [address] [place] [address] [place] MCHC (RBC) [Mass/Vol] 33.9 g/dL Normal 30.5-36.0 [facility] Comment on above: Order Comment: Speci men Type: BLOOD SPECIMEN Ordering Facility: [facility] Address: [address] [place] [address] Performed By: #### 5 5454-3 #### [facility] CLIA [id number] [address] [place] [address] [place] MCV (RBC) [Entitic vol] 89.1 fL Normal 80.0-100.0 [facility] Comment on above: Order Comment: Speci men Type: BLOOD SPECIMEN Ordering Facility: [facility] Address: [address] [place] [address] Performed By: #### 5 5454-3 #### [facility] CLIA [id number] [address] [place] [address] [place] Nucleated RBC (Bld) [#/Vol] 10*3/uL Normal <0.01 [facility] Comment on above: Order Comment: Speci men Type: BLOOD SPECIMEN Ordering Facility: [facility] Address: [address] [place] [address] Performed By: #### 5 5454-3 #### [facility] CLIA [id number] [address] [place] [address] [place] Platelet mean volume (Bld) [Entitic vol] 9.7 fL Normal 9.0-12.7 [facility] Comment on above: Order Comment: Speci men Type: BLOOD SPECIMEN Ordering Facility: [facility] Address: [address] [place] [address] Performed By: #### 5 5454-3 #### [facility] CLIA [id number] [address] [place] [address] [place] Platelets (Bld) [#/Vol] 209 10*3/uL Normal 150-400 [facility] Comment on above: Order Comment: Speci men Type: BLOOD SPECIMEN Ordering Facility: [facility] Address: [address] [place] [address] Performed By: #### 5 5454-3 #### [facility] CLIA [id number] [address] [place] [address] [place] RBC (Bld) [#/Vol] 4.14 10*6/uL Normal 3.90-5.20 [facility] Comment on above: Order Comment: Speci men Type: BLOOD SPECIMEN Ordering Facility: [facility] Address: [address] [place] [address] Performed By: #### 5 5454-3 #### [facility] CLIA [id number] [address] [place] [address] [place] WBC (Bld) [#/Vol] 7.93 10*3/uL Normal 3.70-11.00 [facility] Comment on above: Order Comment: Speci men Type: BLOOD SPECIMEN Ordering Facility: [facility] Address: [address] [place] [address] Performed By: #### 5 5454-3 #### [facility] CLIA [id number] [address] [place] [address] [place] Comprehensive metabolic 2000 panelon 03-19-2024 Albumin [Mass/Vol] 4.1 g/dL 3.9 - 4.9 g/dL [facility] ALP [Catalytic activity/Vol] 46 U/L 34 - 123 U/L [facility] ALT [Catalytic activity/Vol] 30 U/L 7 - 38 U/L [facility] Anion gap [Moles/Vol] 8 mmol/L 8 - 15 mmol/L [facility] AST [Catalytic activity/Vol] 24 U/L 13 - 35 U/L [facility] Bilirubin [Mass/Vol] 0.2 mg/dL 0.2 - 1 .3 mg/dL [facility] Calcium [Mass/Vol] 9.2 mg/dL 8.5 - 10. 2 mg/dL [facility] Chloride [Moles/Vol] 101 mmol/L 98 - 10 7 mmol/L [facility] CO2 [Moles/Vol] 25 mmol/L 22 - 30 mmol/L [facility] Creatinine [Mass/Vol] 0.45 mg/dL Low 0.58 - 0.96 mg/dL [facility] GFR/1.73 sq M.predicted among non-blacks MDRD (S/P/Bld) [Vol rate/Area] 132 mL/min/{1.73_m2} - PINF [facility] Comment on above: Estimated Glomerular Filtration Rate (eGFR) is calculated using the 2020 CKD-EPI creatinine equation. This equation utilizes serum creatinine, sex, and age as parameters. The creatinine assay has traceable calibration to isotope dilution-mass spectrometry. Refer to KDIGO guidelines for clinical interpretation. In patients with unstable renal function, e.g. those with acute kidney injury, the eGFR may not accurately reflect actual GFR. Glucose [Mass/Vol] 109 mg/dL High 74 - 99 mg/dL [facility] Comment on above: The [place] Diabete s Association (ADA) provides guidance for cutoff values for fasting glucose and random glucose. The ADA defines fasting as no caloric intake for at least 8 hours. Fasting plasma glucose results between 100 to 125 mg/dL indicate increased risk for diabetes (prediabetes). Fasting plasma glucose results greater than or equal to 126 mg/dL meet the criteria for diagnosis of diabetes. In the absence of unequivocal hyperglycemia, results should be confirmed by repeat testing. In a patient with classic symptoms of hyperglycemia or hyperglycemic crisis, random plasma glucose results greater than or equal to 200 mg/dL meet the criteria for diagnosis of diabetes. Reference: Standards of Medical Care in Diabetes 2016, [place] Diabetes Association. Diabetes Care. 2016.39(Suppl 1). Potassium [Moles/Vol] 4.4 mmol/L 3.7 - 5.1 mmol/L [facility] Protein [Mass/Vol] 6.4 g/dL 6.3 - 8.0 g/dL [facility] Sodium [Moles/Vol] 134 mmol/L Low 136 - 144 mmol/L [facility] Urea nitrogen [Mass/Vol] 11 mg/dL 7 - 21 mg/dL [facility] Albumin [Mass/Vol] 4.1 g/dL Normal 3.9-4.9 [facility] Comment on above: Order Comment: Kevin wolff Type: BLOOD SPECIMENOrdering Facility: [facility] Address: [address] [place] [address] Performed By: #### 3 084-1, 3024-7, 3016-3, 31112-5 ####[facility] [id number] [place] [address] [place] ALP [Catalytic activity/Vol] 46 U/L Normal 34-123 [facility] Comment on above: Order Comment: Kevin wolff Type: BLOOD SPECIMENOrdering Facility: [facility] Address: [address] [place] [address] Performed By: #### 3 084-1, 3024-7, 3016-3, 34175-0 ####[facility] [id number] [place] [address] [place] ALT [Catalytic activity/Vol] 30 U/L Normal 7-38 [facility] Comment on above: Order Comment: Speci men Type: BLOOD SPECIMENOrdering Facility: [facility] Address: [address] [place] [address] Performed By: #### 3 084-1, 3024-7, 3016-3, 27163-3 ####[facility] [id number] [place] [address] [place] Anion gap [Moles/Vol] 8 mmol/L Normal 8-15 [facility] Comment on above: Order Comment: Speci men Type: BLOOD SPECIMENOrdering Facility: [facility] Address: [address] [place] [address] Performed By: #### 3 084-1, 3024-7, 301-3, 56607-5 ####[facility] [id number] [place] [address] [place] AST [Catalytic activity/Vol] 24 U/L Normal 13-35 [facility] Comment on above: Order Comment: Speci men Type: BLOOD SPECIMENOrdering Facility: [facility] Address: [address] [place] [address] Performed By: #### 3 084-1, 3024-7, 301-3, 94313-1 ####[facility] [id number] [place] [address] [place] Bilirubin [Mass/Vol] 0.2 mg/dL Normal 0.2-1.3 [facility] Comment on above: Order Comment: Speci men Type: BLOOD SPECIMENOrdering Facility: [facility] Address: [address] [place], [place] [address] Performed By: #### 3 084-1, 3024-7, 3016-3, 87179-4 ####[facility] [id number] [address] [address] [place] Calcium [Mass/Vol] 9.2 mg/dL Normal 8.5-10.2 [facility] Comment on above: Order Comment: Speci men Type: BLOOD SPECIMENOrdering Facility: [facility] Address: [address] [place] [address] Performed By: #### 3 084-1, 3024-7, 301-3, 28628-2 ####[facility] [id number] [place] [address] [place] Chloride [Moles/Vol] 101 mmol/L Normal 98-107 [facility] Comment on above: Order Comment: Speci men Type: BLOOD SPECIMENOrdering Facility: [facility] Address: [address] [place] [address] Performed By: #### 3 084-1, 3024-7, 3015-3, 32808-1 ####[facility] [id number] [place] [address] [place] CO2 [Moles/Vol] 25 mmol/L Normal 22-30 [facility] Comment on above: Order Comment: Speci men Type: BLOOD SPECIMENOrdering Facility: [facility] Address: [address] [place] [address] Performed By: #### 3 084-1, 3024-7, 3016-3, 82190-5 ####[facility]IA [id number] [place] [address] [place] Creatinine [Mass/Vol] 0.45 mg/dL Low 0.58-0.96 [facility] Comment on above: Order Comment: Speci men Type: BLOOD SPECIMENOrdering Facility: [facility] Address: [address] [place] [id number] Performed By: #### 3 084-1, 3024-7, 3016-3, 95679-7 ####[facility] [id number] [place] [id number] [place] Creatinine and Glomerular filtration rate.predicted panel (S/P/Bld) 132 mL/min/1.73m??? Normal >=60 [facility] Comment on above: Order Comment: Kevin wolff Type: BLOOD SPECIMENOrdering Facility: [facility] Address: [address] [place] [address] Result Comment: Yamilka mated Glomerular Filtration Rate (eGFR) is calculated using the 2020 CKD-EPI creatinine equation. This equation utilizes serum creatinine, sex, and age as parameters. The creatinine assay has traceable calibration to isotope dilution-mass spectrometry. Refer to KDIGO guidelines for clinical interpretation. In patients with unstable renal function, e.g. those with acute kidney injury, the eGFR may not accurately reflect actual GFR. Performed By: #### 3 084-1, 3024-7, 3016-3, 20836-1 ####[facility] [id number] [place] [id number] [place] Glucose [Mass/Vol] 109 mg/dL High 74-99 [facility] Comment on above: Order Comment: Kevin wolff Type: BLOOD SPECIMENOrdering Facility: [facility] Address: [address] [place] [address] Result Comment: The [place] Diabetes Association (ADA) provides guidance for cutoff values for fasting glucose and random glucose. The ADA defines fasting as no caloric intake for at least 8 hours. Fasting plasma glucose results between 100 to 125 mg/dL indicate increased risk for diabetes (prediabetes). Fasting plasma glucose results greater than or equal to 126 mg/dL meet the criteria for diagnosis of diabetes. In the absence of unequivocal hyperglycemia, results should be confirmed by repeat testing. In a patient with classic symptoms of hyperglycemia or hyperglycemic crisis, random plasma glucose results greater than or equal to 200 mg/dL meet the criteria for diagnosis of diabetes. Reference: Standards of Medical Care in Diabetes 2016, [place] Diabetes Association. Diabetes Care. 2016.39(Suppl 1). Performed By: #### 3 084-1, 3024-7, 3016-3, 80931-6 ####[facility] [id number] [address] [address] [place] Potassium [Moles/Vol] 4.4 mmol/L Normal 3.7-5.1 [facility] Comment on above: Order Comment: Speci men Type: BLOOD SPECIMENOrdering Facility: [facility] Address: [address] [place] [address] Performed By: #### 3 084-1, 3024-7, 6-3, 94610-2 ####[facility]IA [id number] [address] [address] [place] Protein [Mass/Vol] 6.4 g/dL Normal 6.3-8.0 [facility] Comment on above: Order Comment: Speci men Type: BLOOD SPECIMENOrdering Facility: [facility] Address: [address] [place] [address] Performed By: #### 3 084-1, 3024-7, 3015-3, 57494-2 ####[facility]IA [id number] [address] [address] [place] Sodium [Moles/Vol] 134 mmol/L Low 136-144 [facility] Comment on above: Order Comment: Speci men Type: BLOOD SPECIMENOrdering Facility: [facility] Address: [address] [place], [place] [address] Performed By: #### 3 084-1, 3024-7, 3016-3, 96039-1 ####[facility] [id number] [address] [address] [place] Urea nitrogen [Mass/Vol] 11 mg/dL Normal 7-21 [facility] Comment on above: Order Comment: Speci men Type: BLOOD SPECIMENOrdering Facility: [facility] Address: [address] [place] [address] Performed By: #### 3 084-1, 3024-7, 3016-3, 54062-7 ####[facility] [id number] [place] [address] [place] Free T4 [Mass/Vol]on 024 Interpretation and review of laboratory results Normal [facility] HBV surface Ag Ql (S)on 02-28 Interpretation and review of laboratory results Normal [facility] HBV surface Ag Ser Qlon 02-28 HBV surface Ag Ql (S) Negative Normal Negative [facility] Comment on above: Order Comment: Speci men Type: BLOOD SPECIMEN Order[facility] Facility: [facility] Address: [address] [place] [address] Performed By: #### 5 5454-3 #### [facility] CLIA [id number] [address] [place] [address] [place] HCV Ab Ql (S)on 03-19-2024 Interpretation and review of laboratory results Normal [facility] HCV Ab Ser Qlon 03-19-2024 HCV Ab Ql (S) Negative Normal Negative [facility] Comment on above: Order Comment: Kevin wolff Type: BLOOD SPECIMENOrdering Facility: [facility] Address: [address] [place] [address] Result Comment: The result suggests no evidence of active infection with Hepatitis C virus. Should recent infection be suspected, repeat testing may be considered 4-6 weeks after this draw. Performed By: #### 1 6128-1 ####[facility] [id number] [place] [address] [place] HEPATITIS B SURFACE ANTIGENo n 03-19-2024 HBV surface Ag Ql (S) Negative Negative [facility] HEPATITIS C ANTIBODY IA WITH CONFIRMATIONon 03-19-2024 HCV Ab Ql (S) Negative Negative [facility] Comment on above: The result suggests no evidence of active infection with Hepatitis C virus. Should recent infection be suspected, repeat testing may be considered 4-6 weeks after this draw. HIV 1+2 Ab IA Qlon 4 HIV 1 and 2 Ab IA.rapid Nom (S/P/Bld) [facility] Comment on above: Test not indicated. HIV 1+2 Ab+HIV1 p24 Ag IA Ql Non-Reactive Nonreactive [facility] HIV immunoassay testing algorithm interpretation (S/P/Bld) [Interp] [facility] Comment on above: No evidence of HIV-1 or HIV-2 infection. Should recent infection be suspected, repeat testing may be considered 2-3 weeks after this draw. [place] Rev. Code 3701.243(E): This information has been disclosed to you from confidential records protected from disclosure by state law. You shall make no further disclosure of this information without the specific, written, and informed release of the individual to whom it pertains or as otherwise permitted by state law. A general authorization for the release of medical or other information is not sufficient for the purpose of the release of HIV test results or diagnoses. [facility] HIV 1 and 2 Ab IA.rapid Nom (S/P/Bld) Normal [facility] Comment on above: Order Comment: Speci men Type: BLOOD SPECIMENOrdering Facility: [facility] Address: [address] [place] [address] Result Comment: Test not indicated. Performed By: #### 5 195-3, 24792-9, 46638-4 ####[facility] [id number] [place] [address] [place] HIV 1+2 Ab+HIV1 p24 Ag IA Ql Non-Reactive Normal Nonreactive [facility] Comment on above: Order Comment: Speci men Type: BLOOD SPECIMENOrdering Facility: [facility] Address: [address] [place] [address] Performed By: #### 5 195-3, 34613-7, 88545-2 ####[facility] [id number] [place] [address] [place] HIV immunoassay testing algorithm interpretation (S/P/Bld) [Interp] Normal [facility] Comment on above: Order Comment: Speci men Type: BLOOD SPECIMENOrdering Facility: [facility] Address: [address] [place] [address] Result Comment: No e vidence of HIV-1 or HIV-2 infection. Should recent infection be suspected, repeat testing may be considered 2-3 weeks after this draw. [place] Rev. Code 3701.243(E): This information has been disclosed to you from confidential records protected from disclosure by state law. ???You shall make no further disclosure of this information without the specific, written, and informed release of the individual to whom it pertains or as otherwise permitted by state law. A general authorization for the release of medical or other information is not sufficient for the purpose of the release of HIV test results or diagnoses. Performed By: #### 5 195-3, 18553-9, 99550-1 ####[facility] [id number] [facility] [place] [address] [place] HbA1c (Bld)on 03-19-2024 Average glucose Estimated from glycated hemoglobin (Bld) [Mass/Vol] 108 mg/dL [facility] Comment on above: eAG: (Estimated aver age glucose) is a calculated value from HgbA1c and is players club representative of the average blood glucose level in the last 2-3 month period. HbA1c (Bld) [Mass fraction] 5.4 % 4.3 - 5.6 % [facility] Comment on above: [place] Diabetes As sociation guidelines indicate that patients with HgbA1c in the range 5.7-6.4% are at increased risk for development of diabetes, and intervention by lifestyle modification may be beneficial. HgbA1c greater or equal to 6.5% is considered diagnostic of diabetes. [facility] Average glucose Estimated from glycated hemoglobin (Bld) [Mass/Vol] 108 mg/dL Normal [facility] Comment on above: Order Comment: Speci men Type: BLOOD SPECIMEN [facility] Facility: [facility] Address: [address] [place] [address] Result Comment: eAG: (Estimated average glucose) is a calculated value from HgbA1c and is players club representative of the average blood glucose level in the last 2-3 month period. Performed By: #### 5 5454-3 #### [facility] CLIA [id number] [address] [place] [address] [place] HbA1c (Bld) [Mass fraction] 5.4 % Normal 4.3-5.6 [facility] Comment on above: Order Comment: Kevin mariella Type: BLOOD SPECIMEN [facility] Facility: [facility] Address: [address] [place] [address] Result Comment: [place] Diabetes Association guidelines indicate that patients with HgbA1c in the range 5.7-6.4% are at increased risk for development of diabetes, and intervention by lifestyle modification may be beneficial. HgbA1c greater or equal to 6.5% is considered diagnostic of diabetes. Performed By: #### 5 5454-3 #### [facility] CLIA [id number] [address] [place] [address] [place] No Panel Informationon 03-19 [facility] Interpretation and review of laboratory results Abnormal [facility] PROTEIN / CREATININE RATIOon 03-19-2024 Protein/Creatinine (U) [Mass ratio] mg/mg NINF - 0.15 mg/mg [facility] Comment on above: Adult Proteinuria Ca tegories: <0.15 mg/mg is considered normal to mildly increased 0.15 - 0.50 mg/mg is considered moderately increased >0.50 mg/mg is considered severely increased KDIGO. (2013). KDIGO 2012 Clinical Practice Guideline for the Evaluation and Management of Chronic Kidney Disease. Official Journal of the International Society of Nephrology, 3(1), 1-150. Prot/Creat Uron 03-19-2024 Protein/Creatinine (U) [Mass ratio] mg/g Normal <0.15 [facility] Comment on above: Order Comment: Kevin mariella Type: BLOOD SPECIMEN Ordering Facility: [facility] Address: [address] [place] [address] Result Comment: Adul t Proteinuria Categories: <0.15 mg/mg is considered normal to mildly increased 0.15 - 0.50 mg/mg is considered moderately increased >0.50 mg/mg is considered severely increased KDIGO. (2013). KDIGO 2012 Clinical Practice Guideline for the Evaluation and Management of Chronic Kidney Disease. Official Journal of the International Society of Nephrology, 3(1), 1-150. Performed By: #### 5 5454-3 #### [facility] CLIA [id number] [address] [place] [address] [place] Protein/Creatinine (U) [Mass ratio]on 03-19-2024 Creatinine (U) [Mass/Vol] 48.1 mg/dL 20.0 - 300.0 mg/dL [facility] Interpretation and review of laboratory results Normal [facility] Protein (U) [Mass/Vol] mg/dL 0 - 20 mg/dL [facility] Creatinine (U) [Mass/Vol] 48.1 mg/dL Normal 20.0-300.0 [facility] Comment on above: Order Comment: Kevin wolff Type: BLOOD SPECIMEN Ordering Facility: [facility] Address: [address] [place] [address] Performed By: #### 5 5454-3 #### [facility] CLIA [id number] [address] [place] [address] [place] Protein (U) [Mass/Vol] mg/dL Normal 0-20 [facility] Comment on above: Order Comment: Kevin wolff Type: BLOOD SPECIMEN Ordering Facility: [facility] Address: [address] [place] [address] Performed By: #### 5 5454-3 #### [facility] CLIA [id number] [address] [place] [address] [place] RUBELLA IGG ANTIBODYon 03-19 Interpretation and review of laboratory results Normal [facility] Rubella IgG, Qual Positive Positive [facility] Comment on above: The result suggests recent or past exposure to Rubella virus or history of Rubella vaccination. Positive result may also be seen due to presence of passively-transferred antibodies. Please correlate with patient's history. [facility] RUBELLA IGG AB, QUAL Positive Normal Positive [facility] Comment on above: Order Comment: Kevin wolff Type: BLOOD SPECIMENOrdering Facility: [facility] Address: [address] [place] [address] Result Comment: The result suggests recent or past exposure to Rubella virus or history of Rubella vaccination. Positive result may also be seen due to presence of passively-transferred antibodies. Please correlate with patient's history. Performed By: #### R UBIGG ####[facility]IA [id number] [place] [address] [place] Reagin and Treponema pallidu m IgG and IgM [Interp]on 03-19-2024 T. pallidum IgG+IgM IA Ql (S) Non-Reactive Nonreactive [facility] T. pallidum IgG+IgM IA Ql (S) Non-Reactive Normal Nonreactive [facility] Comment on above: Order Comment: Speci men Type: BLOOD SPECIMENOrdering Facility: [facility] Address: [address] [place] [address] Performed By: #### 5 195-3, 71643-6, 17650-8 ####[facility]IA [id number] [place] [address] [place] Reagin+T pallidum IgG+IgM Se rPl-Impon 03-19-2024 Reagin and Treponema pallidum IgG and IgM [Interp] Cannot exclude recent Treponemal infection if specimen collected within 7-10 days after appearance of suspect lesions or 2-3 weeks after an exposure. Clinical correlation is required. Normal [facility] Comment on above: Order Comment: Kevin wolff Type: BLOOD SPECIMENOrdering Facility: [facility] Address: [address] [place] [address] Performed By: #### 5 195-3, 08738-9, 11496-0 ####[facility]IA [id number] [place] [address] [place] SYPHILIS TOTAL W/REFLEXon Reagin and Treponema pallidum IgG and IgM [Interp] Cannot exclude recent Treponemal infection if specimen collected within 7-10 days after appearance of suspect lesions or 2-3 weeks after an exposure. Clinical correlation is required. [facility] T4 FREE/FREE THYROXINEon Free T4 [Mass/Vol] 1.2 ng/dL 0.9 - 1.7 ng/dL [facility] T4 Free SerPl-mCncon 024 Free T4 [Mass/Vol] 1.2 ng/dL Normal 0.9-1.7 [facility] Comment on above: Order Comment: Kevin wolff Type: BLOOD SPECIMENOrdering Facility: [facility] Address: [address] [place] [address] Performed By: #### 3 084-1, 3024-7, 3016-3, 08724-8 ####[facility] LABCLIA [id number] [place] [address] [place] THYROID STIMULATING HORMONEo n 03-19-2024 TSH Qn 4.300 m[IU]/L High [facility] Comment on above: If the patient is pr egnant, TSH reference range varies by gestational period: First Trimester (weeks 9-12): 0.180-2.990 mIU/L Second Trimester: 0.110-3.980 mIU/L Third Trimester: 0.480-4.710 mIU/L Cliff Glover et al. A Practical Approach for the Verifications and Determination of Site- and Trimester-Specific Reference Intervals for Thyroid Function tests in . Thyroid, 2019:29:3:412-420. Stevie Summers, et al. 2017 Guidelines of the [place] Thyroid [employer] for the Diagnosis and Management of Thyroid Disease during and the . Thyroid, 2017:27:3:315-389. TSH Qnon 03-19-2024 Interpretation and review of laboratory results Abnormal [facility] TSH SerPl-aCncon 03-19-2024 TSH Qn 4.300 m[IU]/L High 0.270-4.200 [facility] Comment on above: Order Comment: Kevin wolff Type: BLOOD SPECIMENOrdering Facility: [facility] Address: [address] [place] [place] [address] Result Comment: If t he patient is , TSH reference range varies by gestational period: First Trimester (weeks 9-12): 0.180-2.990 mIU/L Second Trimester: 0.110-3.980 mIU/L Third Trimester: 0.480-4.710 mIU/L Cliff Glover et al. A Practical Approach for the Verifications and Determination of Site- and Trimester-Specific Reference Intervals for Thyroid Function tests in . Thyroid, 2019:29:3:412-420. Stevie Summers et al. 2017 Guidelines of the [place] Thyroid Association for the Diagnosis and Management of Thyroid Disease during and the . Thyroid, 2017:27:3:315-389. Performed By: #### 3 084-1, 3024-7, 3016-3, 33875-4 ####[facility]IA [id number] [place] [address] [place] TYPE + SCREEN PRENATALon ABO B Normal [facility] Comment on above: Order Comment: Speci men Type: BLOOD SPECIMENOrdering Facility: [facility] Address: [address] [place] [address] Performed By: #### T SPN ####CC [facility] BLOOD BANKCLIA [id number] [address] [place] HISTORICAL AB SCR STATUS Negative Normal [facility] Comment on above: Order Comment: Speci men Type: BLOOD SPECIMENOrdering Facility: [facility] Address: [address] [place] [address] Performed By: #### T SPN ####CC [facility] BLOOD BANKCLIA [id number] [place] [address] [place] Rh Nom (Bld) Positive Normal [facility] Comment on above: Order Comment: Speci men Type: BLOOD SPECIMENOrdering Facility: [facility] Address: [address] [place] [address] Performed By: #### T SPN ####CC [facility] BLOOD BANKCLIA [id number] [address] [place] TYPE AND SCREEN EXPIRATION 03/22/2024 23:59 Normal [facility] Comment on above: Order Comment: Speci men Type: BLOOD SPECIMENOrdering Facility: [facility] Address: [address] [place] [address] Performed By: #### T SPN ####[facility] BANKCLIA [id number] [place] [address] [place] URIC ACIDon 03-19-2024 Urate [Mass/Vol] 2.0 mg/dL Low 2.5 - 6.6 mg/dL [facility] Urate SerPl-mCncon Urate [Mass/Vol] 2.0 mg/dL Low 2.5-6.[address] [facility] Comment on above: Order Comment: Speci men Type: BLOOD SPECIMENOrdering Facility: [facility] Address: [address] [place] [address] Performed By: #### 3 084-1, 3024-7, 3016-3, 24353-9 ####[facility] LABCLIA [id number] [place] [address] [place] Bacteria identified Cx Nom ( U)Ordered By: Sosa Riojas on 03-18-2024 Interpretation and review of laboratory results Normal [facility] URINE CULTUREOrdered By: Cely Riojas on 03-18-2024 Bacteria identified Cx Nom (U) No growth (<1,000 CFU/ml) [facility] BACTERIAL VAGINOSIS NAATon 0 03-17-2024 Interpretation and review of laboratory results Normal [facility] Lactobacillus crispatus+gasseri+jense hernán + Gardnerella vaginalis + Atopobium vaginae rRNA VENUS+probe Ql (Vag fld) Negative Negative for bacterial vaginosis [facility] Lactobacillus crispatus+gasseri+jense hernán + Gardnerella vaginalis + Atopobium vaginae rRNA VENUS+probe Ql (Vag fld) Negative Normal Negative for bacterial vaginosis [facility] Comment on above: Order Comment: Speci men Type: BLOOD SPECIMEN Ordering Facility: [facility] Address: [address] [place] [address] Performed By: #### 5 5454-3 #### [facility] CLIA [id number] [address] [place] [address] [place] Bacteria Ur Culton Bacteria identified Cx Nom (U) CULTURE, URINE: No growth (<1,000 CFU/ml) Normal [facility] Comment on above: Performed By: #### 6 30-4 ####[facility] LABCLIA [id number] [place] [address] [place] C. trachomatis+N. gonorrhoea e DNA VENUS+probe Ql (Unsp spec)on 03-17-2024 C. trachomatis rRNA VENUS+probe Ql (Unsp spec) Negative Negative for Chlamydia [facility]omatis [facility] Interpretation and review of laboratory results Normal [facility] N. gonorrhoeae rRNA VENUS+probe Ql (Unsp spec) Negative Negative for Neisseria gonorrhoeae by amplification [facility] C. trachomatis rRNA VENUS+probe Ql (Unsp spec) Negative Normal Negative for Chlamydia trachomatis by amplificaton [facility] Comment on above: Order Comment: Speci men Type: SWABOrdering Facility: [facility] Address: [address] [place] [address] Performed By: #### 3 6902-5 ####[facility] LABCLIA [id number] [place] [address] [place] N. gonorrhoeae rRNA VENUS+probe Ql (Unsp spec) Negative Normal Negative for Neisseria gonorrhoeae by amplification [facility] Comment on above: Order Comment: Speci men Type: SWABOrdering Facility: [facility] Address: [address] [place] [address] Performed By: #### 3 6902-5 ####[facility] LABCLIA [id number] [place] [address] [place] ALEXIS/TRICHOMONAS NAATon 0 03-17-2024 C. glabrata RNA VENUS+probe Ql (Vag fld) Negative Negative for Alexis glabrata [facility] Alexis sp DNA VENUS+probe Ql (Vag fld) Positive Abnormal Negative for Alexis species [facility] Interpretation and review of laboratory results Abnormal [facility] T. vaginalis DNA VENUS+probe Ql (Unsp spec) Negative Negative for Trichomonas vaginalis by amplification [facility] C. glabrata RNA VENUS+probe Ql (Vag fld) Negative Normal Negative for Alexis glabrata [facility] Comment on above: Order Comment: Speci men Type: BLOOD SPECIMEN [facility] Address: [address] [place] [address] Performed By: #### 5 5454-3 #### [facility] CLIA [id number] [address] [place] [address] [place] Alexis sp DNA VENUS+probe Ql (Vag fld) Positive Abnormal Negative for Alexis species [facility] Comment on above: Order Comment: Speci men Type: BLOOD SPECIMEN Order[facility] Facility: [facility] Address: [address] [place] [address] Performed By: #### 5 5454-3 #### [facility] CLIA [id number] [address] [place] [address] [place] T. vaginalis DNA VENUS+probe Ql (Unsp spec) Negative Normal Negative for Trichomonas vaginalis by amplification [facility] Comment on above: Order Comment: Speci men Type: BLOOD SPECIMEN Order[facility] Facility: [facility] Address: [address] [place] [address] Performed By: #### 5 5454-3 #### [facility] CLIA [id number] [address] [place] [address] [place] HIGH RISK HUMAN PAPILLOMA SHAYLA (HPV), PCR FOR DETECTION AND GENOTYPINGon 03-17-2024 HPV 16 Ag Ql (Unsp spec) Not detected Normal Not detected [facility] Comment on above: Order Comment: Speci men Type: FLUID SPECIMENOrdering Facility: [facility] Address: [address] [place] [address] Performed By: #### H PVHRT ####[facility] LABCLIA [id number] [address] [place]#### [id number] ####[facility] LABORATORYCLIA [id number] [address] STATES OF [facility] LABCLIA [id number] [place] [address] [place] HPV 18 Ag Ql (Unsp spec) Not detected Normal Not detected [facility] Comment on above: Order Comment: Speci men Type: FLUID SPECIMENOrdering Facility: [facility] Address: [address] [place] [address] Performed By: #### H PVHRT ####[facility] LABCLIA [id number] [place] [address] [place]#### [id number] ####[facility] LABORATORYIA [id number] [address] STATES OF [facility] LABCLIA [id number] [place] [address] [place] HPV 31+33+35+39+45+51+52+56 +58+59+66+68 DNA VENUS+probe Ql (Cvx) Not detected Normal Not detected [facility] Comment on above: Order Comment: Speci men Type: FLUID SPECIMENOrdering Facility: [facility] Address: [address] [place] [address] Result Comment: High Risk HPV Other Type includes HPV types 31, 33, 35, 39, 45, 51, 52, 56, 58, 59, 66 and 68. Performed By: #### H PVHRT ####[facility] LABCLIA [id number] [place] [address] [place]#### [id number] ####MARZENAJULIO C LABORATORYCLIA [id number] [place] [address] [place] [facility] LABCLIA [id number] [place] [address] [place] PAP TESTon 03-17-2024 ADEQUACY Satisfactory for interpretation. Normal [facility] Comment on above: Order Comment: Speci men Type: FLUID SPECIMENOrdering Facility: [facility] Address: [address] [place] [address] Performed By: #### H PVHRT ####[facility] LABCLIA [id number] [place] [address] [place]#### [id number] ####MARA LABORATORYCLIA [id number] [place] [address] [place] AMERICAAC[facility] LABCLIA [id number] [place] [address] [place] CASE REPORT Normal [facility] Comment on above: Order Comment: Speci men Type: FLUID SPECIMENOrdering Facility: [facility] Address: [address] [place] [address] Result Comment: Gyne cologic Cytology Report Case: [id number] Authorizing Provider: Bambi Gloria APRN.CNM Collected: 03/17/2024 11:51 AM Ordering Location: OB/Gynecology Received: 03/17/2024 12:33 PM First Screen: Lubna Mcfarland, JASON, ASCP Specimen: Pap Test, ThinPrep, Cervix Performed By: #### H PVHRT ####[facility] LABCLIA [id number] [place] [address] [place]#### [id number] ####[facility] LABORATORYCLIA [id number] [place] [address] [place] AMERICAAC[facility] LABCLIA [id number] [place] [address] [place] CLINICAL HISTORY, CYTOLOGY, CHICKEN STUFFER Routine Exam Normal [facility] Comment on above: Order Comment: Speci men Type: FLUID SPECIMENOrdering Facility: [facility] Address: [address] [place] [address] Result Comment: Preg nant (Indicate Weeks) 8wks Performed By: #### H PVHRT ####[facility] LABCLIA [id number] [place] [id number] [place]#### [id number] ####[facility] LABORATORYCLIA [id number] [place] [id number] [place] AMERICAAC[facility] LABCLIA [id number] [place] [address] [place] FINAL PERFORMING LAB Normal [facility] Comment on above: Order Comment: Speci men Type: FLUID SPECIMENOrdering Facility: [facility] Address: [address] [place] [address] Result Comment: Tech nical component, slot machine floor person screening performed at [facility], [address], [place] [address] CLIA# [id number] Diagnostic interpretation performed at [facility], [address], [place] [id number] CLIA# [id number] Special Service Officer: Faye Vargas M.D. Performed By: #### H PVHRT ####[facility] LABCLIA [id number] [place] [address] [place]#### [id number] ####[facility] LABORATORYCLIA [id number] [place] [address] [place] AMERICAAC[facility] LABCLIA [id number] [place] [id number] [place] HPV REFLEX Yes HPV Normal [facility] Comment on above: Order Comment: Speci men Type: FLUID SPECIMENOrdering Facility: [facility] Address: [address] [place] [id number] Performed By: #### H PVHRT ####[facility] LABCLIA [id number] [place] [address] [place]#### [id number] ####[facility] LABORATORYCLIA [id number] [address] LABCLIA [id number] [place] [id number] [place] INTERPRETATION, CYTOLOGY, CHICKEN STUFFER Normal [facility] Comment on above: Order Comment: Speci men Type: FLUID SPECIMENOrdering Facility: [facility] Address: [address] [place] [address] Result Comment: Nega tive for intraepithelial lesion or malignancy. Performed By: #### H PVHRT ####[facility] LABCLIA [id number] [place] [address] [place]#### [id number] ####[facility] LABORATORYCLIA [id number] [address] STATES [facility] LABCLIA [id number] [place] [address] [place] [facility] 01/19/2024 Normal [facility] Comment on above: Order Comment: Speci men Type: FLUID SPECIMENOrdering Facility: [facility] Address: [address] [place] [address] Performed By: #### H PVHRT ####[facility] LABCLIA [id number] [place] [address] [place]#### [id number] ####[facility]GLASCREST LABORATORYCLIA [id number] [address] STATES OF AMERICAAC[facility] LABCLIA [id number] [place] [address] [place] PAP DISCLAIMER COMMENT The Pap Smear is a screening test for cervical cancer. False negative results occur with all screening tests, emphasizing the need for rescreening at recommended intervals, and clinical correlation. Normal [facility] Comment on above: Order Comment: Speci men Type: FLUID SPECIMENOrdering Facility: [facility] Address: [address] [place] [address] Performed By: #### H PVHRT ####[facility] LABCLIA [id number] [place] [address] [place]#### [id number] ####[facility]ORATORYCLIA [id number] [address] LABCLIA [id number] [address] [place] PAP SENIOR PRINCIPAL COMMENT This specimen has be en analyzed by the ThinPrep Imaging System, an automated imaging and review system, which assists the laboratory in evaluating cells on ThinPrep Pap tests. Following automated imaging, selected hanson from every slide are reviewed by a slot machine floor person. 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 Number of embryos: 1 Dating LMP on: 01/19/2024 GA by LMP 8 w + 2 d ORQUIDEA by LMP: 10/25/2024 Ultrasound examination on: 03/17/2024 GA by U/S based upon: CRL GA by U/S 7 w + 1 d ORQUIDEA by U/S: 11/02/2024 Assigned: based on ultrasound (CRL), selected on 03/17/2024 Assigned GA 7 w + 1 d Assigned ORQUIDEA: 11/02/2024 Biometry Standard FHR 147 bpm CRL 10.9 mm 7w 1d 96% Hadlock Assessment Gestational sac: visualized Location: intrauterine Yolk sac: visualized Embryo: visualized CRL 10.9 mm 7w 1d 96% [facility]lock Cardiac activity: present FHR 147 bpm General Evaluation Cardiac activity present. FHR 147 bpm Performed By: Bambi Gloria CNM Read By: Bambi Gloria CNM MATERNAL MEDICINE [facility] Radiology Study observation (narrative) [place] jerri [facility] Basophil percentageOrdered B y: Isabel Zuniga on 12-03-2023 Glucose [Mass/Vol] 208 mg/dL 74-106 [facility] Comment on above: Glucose result great er than or equal to 200 mg/dLsuggests DIABETES MELLITUS per A.D.A. criteria. No Panel InformationOrdered By: Isabel Zuniga on 12-03-2023 C-Peptide 2.1 ng/mL 1.1-4.4 [facility] Comment on above: C-Peptide reference interval is for fasting patients.Performed at: [employer] [facility] [address] [id number] Director: Kevin Butler PhD, Phone: [phone] Basophil percentageOrdered B y: Deborah Gill on 11-29-2023 Chloride [Moles/Vol] 106 mmol/L 98-107 [facility] Glucose [Mass/Vol] 149 mg/dL 74-106 [facility] Comment on above: Fasting Glucose resu lt greater than or equal to 126 mg/dL suggests DIABETES MELLITUS per A.D.A. criteria. Potassium [Moles/Vol] 4.3 mmol/L 3.5-5.1 [facility] Sodium [Moles/Vol] 138 mmol/L 136-145 [facility] Laboratory - Chemistry and C hemistry - challengeOrdered By: Deborah Gill on 11-29-2023 CO2 [Moles/Vol] 25.0 mmol/L 21.0-32.0 [facility] Urea nitrogen/Creatinine [Mass ratio] 24.0 mg/mg 10-20 [facility] No Panel InformationOrdered By: Deborah Gill on 11-29-2023 Estimated Creatinine Clearance Calc 108.76 ml/min [facility] Estimated GFR (MDRD) Amer 143 mL/min >60 [facility] Comment on above: GFR Calc Estimated GFR (MDRD) Non-Af Amer 118 mL/min >60 [facility] Comment on above: Non- GFR Calc Serum or plasma calcium caitlin urement (mass/volume)Ordered By: Deborah Gill on 11-29-2023 Calcium [Mass/Vol] 9.0 mg/dL 8.5-10.1 [facility] Serum or plasma creatinine m easurement (mass/volume)Ordered By: Deborah Gill on 11-29-2023 Creatinine [Mass/Vol] 0.62 mg/dL 0.55-1.02 [facility] Comment on above: The validity of the calculated GFR & GFRAA in patients over 70 years has not been determined. Clinical correlation is essential. Serum or plasma urea nitroge n measurement (mass/volume)Ordered By: Deborah Gill on 11-29-2023 Urea nitrogen [Mass/Vol] 15 mg/dL 7-18 [facility] Thin prep Papanicolaou smear with manual screeningOrdered By: Deborah Gill on 11-29-2023 Thin prep Papanicolaou smear with manual screening 7 5-15 [facility] Thin prep Papanicolaou smear with manual screening 111 mg/dL 74-106 [facility] Comment on above: MANAGEMENT OF PATIEN T CARE PER NURSING PROTOCOL Absolute lymphocyte countOrd ered By: Caden Greenwood on 11-28-2023 Lymphocytes Auto (Unsp spec) [#/Vol] 1.55 10*3/uL 0.83-4.51 [facility] Automated lymphocyte count a s percentage of total leukocytesOrdered By: Caden Greenwood on 11-28-2023 Lymphocytes/100 WBC Auto (Unsp spec) 24.0 % 19-41 [facility] Base excessOrdered By: Caden Greenwood on 11-28-2023 Base excess Calc (BldV) [Moles/Vol] -15 mmol/L -1.0-3.5 [facility] Basophil percentageOrdered B y: Caden Greenwood on 11-28-2023 Basophils/100 WBC (Bld) 0.5 % 0-1 [facility] Chloride [Moles/Vol] 103 mmol/L 98-107 [facility] Eosinophils/100 WBC (Bld) 0.5 % 0-5 [facility] Glucose [Mass/Vol] 153 mg/dL 74-106 [facility] Comment on above: Fasting Glucose resu lt greater than or equal to 126 mg/dL suggests DIABETES MELLITUS per A.D.A. criteria. Hemoglobin (Bld) [Mass/Vol] 14.3 g/dL 12.0-15.0 [facility] Monocytes/100 WBC (Bld) 4.9 % 0-10 [facility] Neutrophils (Bld) [#/Vol] 4.5 10*3/uL 2.0-7.7 [facility] Neutrophils/100 WBC (Bld) 69.9 % 47-70 [facility] Potassium [Moles/Vol] 3.7 mmol/L 3.5-5.1 [facility] Sodium [Moles/Vol] 135 mmol/L 136-145 [facility] WBC (Bld) [#/Vol] 6.5 10*3/uL 4.4-11.0 [facility] Basophil percentage 0 SEEN /hpf 0-5 [facility] Bilirubin Test strip Ql (U)O rdered By: Caden Greenwood on 11-28-2023 Bilirubin Ql (U) Negative Negative [facility] CO2 (BldV) [Moles/Vol]Ordere d By: Caden Greenwood on 11-28-2023 CO2 [Moles/Vol] 12 mmol/L 23-33 [facility] Determination of erythrocyte mean corpuscular volume (MCV)Ordered By: Caden Greenwood on 11-28-2023 MCV (RBC) [Entitic vol] 86.8 fL 81-99 [facility] Erythrocyte distribution wid th ratioOrdered By: Caden Greenwood on 11-28-2023 Erythrocyte distribution width (RBC) [Ratio] 12.1 % 11.6-14.6 [facility] Erythrocyte distribution wid th standard deviationOrdered By: Caden Greenwood on 11-28-2023 Erythrocyte distribution width (RBC) [Entitic vol] 38.9 fL 35.1-43.9 [facility] Hematocrit Auto (Bld) [Volum e fraction]Ordered By: Caden Greenwood on 11-28-2023 Hematocrit (Bld) [Volume fraction] 42.9 % 37-47 [facility] Immature granulocytes/100 WB C Auto (Bld)Ordered By: Caden Greenwood on 11-28-2023 Immature granulocytes/100 WBC (Bld) 0.200 % 0.0-0.9 [facility] Comment on above: IG% - Immature Granu locytes (promyelocytes, myelocytes and metamyelocytes) > 1% indicates that a LEFT SHIFT is Present. Ketones Test strip Ql (U)Ord ered By: Caden Greenwood on 11-28-2023 Ketones Ql (U) 150 mg/dl Negative [facility] Comment on above: CRITICAL VALUE *H Laboratory - Chemistry and C hemistry - challengeOrdered By: Caden Greenwood on 11-28-2023 HCO3 (Bld) [Moles/Vol] 11 mmol/L 22-26 [facility] CO2 [Moles/Vol] 15.0 mmol/L 21.0-32.0 [facility] Urea nitrogen/Creatinine [Mass ratio] 30.3 mg/mg 10-20 [facility] Laboratory - Hematology and Cell countsOrdered By: Caden Greenwood on 11-28-2023 MCH (RBC) [Entitic mass] 28.9 pg 27.0-32.0 [facility] MCHC (RBC) [Mass/Vol] 33.3 g/dL 32-36 [facility] Nucleated RBC/100 WBC (Bld) [Ratio] 0 % 0-5 [facility] Platelet mean volume (Bld) [Entitic vol] 9.4 fL 6.2-12.0 [facility] Platelets (Bld) [#/Vol] 202 10*3/uL 150-450 [facility] Laboratory - Microbiology an d Antimicrobial susceptibilityOrdered By: Caden Greenwood on 11-28-2023 SARS-CoV-2 (COVID-19) RNA EVNUS+probe Ql (Unsp spec) [facility] Mucus LM Ql (Urine sed)Order ed By: Caden Greenwood on 11-28-2023 Mucus Ql (Urine sed) 0 SEEN /hpf [facility] Nitrite Test strip Ql (U)Ord ered By: Caden Greenwood on 11-28-2023 Nitrite Ql (U) Negative Negative [facility] No Panel InformationOrdered By: Caden Greenwood on 11-28-2023 Blood Gas Sample Site Not entered [facility] Blood Gas Specimen Type TAL [facility] Oxygen Delivery Device Room Air [facility] Estimated Creatinine Clearance Calc 88.72 ml/min [facility] Estimated GFR (MDRD) Amer 114 mL/min >60 [facility] Comment on above: GFR Calc Estimated GFR (MDRD) Non-Af Amer 94 mL/min >60 [facility] Comment on above: Non- GFR Calc Urine RBC 0 SEEN /hpf 0-5 [facility] PCO2 venousOrdered By: Caden Greenwood on 11-28-2023 CO2 (BldV) [Partial pressure] 20.8 mm[Hg] 41-51 [facility] PO2 venousOrdered By: Caden edward on 11-28-2023 Oxygen (BldV) [Partial pressure] 85 mm[Hg] 25-40 [facility] Protein Test strip Ql (U)Ord ered By: Caden Greenwood on 11-28-2023 Protein Ql (U) 30 mg/dl Negative [facility] RBC Auto (Bld) [#/Vol]Ordere d By: Caden Greenwood on 11-28-2023 RBC (Bld) [#/Vol] 4.94 10*6/uL 4.2-5.4 [facility] Serum or plasma acetone caitlin urement (mass/volume)Ordered By: Caden Greenwood on 11-28-2023 Acetone [Mass/Vol] MODERATE NEG [facility] Serum or plasma calcium caitlin urement (mass/volume)Ordered By: Caden Greenwood on 11-28-2023 Calcium [Mass/Vol] 9.1 mg/dL 8.5-10.1 [facility] Serum or plasma choriogonado tropin detectionOrdered By: Caden Greenwood on 11-28-2023 HCG ( test) Ql Negative [facility] Serum or plasma creatinine m easurement (mass/volume)Ordered By: Caden Greenwood on 11-28-2023 Creatinine [Mass/Vol] 0.76 mg/dL 0.55-1.02 [facility] Comment on above: The validity of the calculated GFR & GFRAA in patients over 70 years has not been determined. Clinical correlation is essential. Serum or plasma urea nitroge n measurement (mass/volume)Ordered By: Caden Greenwood on 11-28-2023 Urea nitrogen [Mass/Vol] 23 mg/dL 7-18 [facility] Squamous epithelial cells de tection in urine sediment by light microscopyOrdered By: Caden Greenwood on 11-28-2023 Epithelial cells.squamous LM Ql (Urine sed) 0-5 SEEN /hpf 5-10 [facility] Thin prep Papanicolaou smear with manual screeningOrdered By: Deborah Gill on 11-28-2023 Thin prep Papanicolaou smear with manual screening 123 mg/dL 74-106 [facility] Comment on above: MANAGEMENT OF PATIEN T CARE PER NURSING PROTOCOL Thin prep Papanicolaou smear with manual screening 309 mOsm/KG 275-295 [facility] Thin prep Papanicolaou smear with manual screeningOrdered By: Caden Greenwood on 11-28-2023 Thin prep Papanicolaou smear with manual screening 17 5-15 [facility] Urine blood detectionOrdered By: Caden Greenwood on 11-28-2023 RBC Ql (U) Negative Negative [facility] Urine clarityOrdered By: Catina Greenwood on 11-28-2023 Clarity (U) Clear Clear [facility] Urine color determinationOrd ered By: Caden Greenwood on 11-28-2023 Color (U) Yellow Yellow [facility] Urine glucose detectionOrder ed By: Caden Greenwood on 11-28-2023 Glucose Ql (U) 1000 mg/dl Normal [facility] Urine leukocyte esterase det ection by dipstickOrdered By: Caden Greenwood on 11-28-2023 Leukocyte esterase Test strip Ql (U) Negative Negative [facility] Urine pHOrdered By: Caden mercado on 11-28-2023 pH (U) 5.0 [pH] 5.0 - 8.0 [facility] Urine sediment bacteria coun t by microscopy (number/high power field)Ordered By: Caden Greenwood on 11-28-2023 Bacteria LM.HPF (Urine sed) [#/Area] 0 /[HPF] None Seen [facility] Urine specific gravity measu rementOrdered By: Caden Greenwood on 11-28-2023 Specific gravity (U) [Rel density] 1.025 1.002-1.030 [facility] Urine urobilinogen measureme ntOrdered By: Caden Greenwood on 11-28-2023 Urobilinogen Ql (U) Normal mg/dl Normal [facility] Venous blood pH measurementO rdered By: Caden Greenwood on 11-28-2023 pH (BldV) 7.34 [pH] 7.32-7.42 [facility] Vital signsOrdered By: Caden Greenwood on 11-28-2023 Oxygen saturation in Blood 96 % 50-70 [facility] Whole blood hemoglobin A1c/t otal hemoglobin ratio (mass fraction)Ordered By: Deborah Gill on 11-28-2023 HbA1c (Bld) [Mass fraction] 7.9 % 3.8-5.6 [facility] Comment on above: Normal < 5.7 % Predi abetic 5.7 - 6.4 % Diabetic >or= 6.5 % Please note range changes. Absolute lymphocyte countOrd ered By: Merry Tanner on 11-14-2023 Lymphocytes Auto (Unsp spec) [#/Vol] 3.06 10*3/uL 0.83-4.51 [facility] Automated lymphocyte count a s percentage of total leukocytesOrdered By: Merry Tanner on 11-14-2023 Lymphocytes/100 WBC Auto (Unsp spec) 42.6 % 19-41 [facility] Basophil percentageOrdered B y: Merry Tanner on 11-14-2023 Basophils/100 WBC (Bld) 0.7 % 0-1 [facility] Chloride [Moles/Vol] 102 mmol/L 98-107 [facility] Eosinophils/100 WBC (Bld) 0.8 % 0-5 [facility] Glucose [Mass/Vol] 351 mg/dL 74-106 [facility] Comment on above: Glucose result great er than or equal to 200 mg/dLsuggests DIABETES MELLITUS per A.D.A. criteria. Hemoglobin (Bld) [Mass/Vol] 12.6 g/dL 12.0-15.0 [facility] Monocytes/100 WBC (Bld) 7.1 % 0-10 [facility] Neutrophils (Bld) [#/Vol] 3.5 10*3/uL 2.0-7.7 [facility] Neutrophils/100 WBC (Bld) 48.5 % 47-70 [facility] Potassium [Moles/Vol] 3.8 mmol/L 3.5-5.1 [facility] Sodium [Moles/Vol] 136 mmol/L 136-145 [facility] WBC (Bld) [#/Vol] 7.2 10*3/uL 4.4-11.0 [facility] Basophil percentage 0 SEEN /hpf 0-5 [facility] Bilirubin Test strip Ql (U)O rdered By: Merry Tanner on 11-14-2023 Bilirubin Ql (U) Negative Negative [facility] Determination of erythrocyte mean corpuscular volume (MCV)Ordered By: Merry Tanner on 11-14-2023 MCV (RBC) [Entitic vol] 86.2 fL 81-99 [facility] Erythrocyte distribution wid th ratioOrdered By: Merry Tanner on 11-14-2023 Erythrocyte distribution width (RBC) [Ratio] 12.1 % 11.6-14.6 [facility] Erythrocyte distribution wid th standard deviationOrdered By: [facility] on 11-14-2023 Erythrocyte distribution width (RBC) [Entitic vol] 38.7 fL 35.1-43.9 [facility] Hematocrit Auto (Bld) [Volum e fraction]Ordered By: Merry Tanner on 11-14-2023 Hematocrit (Bld) [Volume fraction] 38.0 % 37-47 [facility] Immature granulocytes/100 WB C Auto (Bld)Ordered By: Merry Tanner on 11-14-2023 Immature granulocytes/100 WBC (Bld) 0.300 % 0.0-0.9 [facility] Comment on above: IG% - Immature Granu locytes (promyelocytes, myelocytes and metamyelocytes) > 1% indicates that a LEFT SHIFT is Present. Ketones Test strip Ql (U)Ord ered By: Merry Tanner on 11-14-2023 Ketones Ql (U) 150 mg/dl Negative [facility] Comment on above: CRITICAL VALUE *HCRI TICAL VALUE VERIFIED. CALLED TO [id number] Gloria Molina.RESULTS READ BACK BY SAME . Laboratory - Chemistry and C hemistry - challengeOrdered By: Merry Tanner on 11-14-2023 CO2 [Moles/Vol] 21.0 mmol/L 21.0-32.0 [facility] Urea nitrogen/Creatinine [Mass ratio] 31.4 mg/mg 10-20 [facility] Laboratory - Hematology and Cell countsOrdered By: Merry Tanner on 11-14-2023 MCH (RBC) [Entitic mass] 28.6 pg 27.0-32.0 [facility] MCHC (RBC) [Mass/Vol] 33.2 g/dL 32-36 [facility] Nucleated RBC/100 WBC (Bld) [Ratio] 0 % 0-5 [facility] Platelet mean volume (Bld) [Entitic vol] 9.4 fL 6.2-12.0 [facility] Platelets (Bld) [#/Vol] 218 10*3/uL 150-450 [facility] Mucus LM Ql (Urine sed)Order ed By: Merry Tanner on 11-14-2023 Mucus Ql (Urine sed) 0 SEEN /hpf [facility] Nitrite Test strip Ql (U)Ord ered By: Merry Tanner on 11-14-2023 Nitrite Ql (U) Negative Negative [facility] No Panel InformationOrdered By: Merry Tanner on 11-14-2023 Estimated Creatinine Clearance Calc 100.64 ml/min [facility] Estimated GFR (MDRD) Amer 132 mL/min >60 [facility] Comment on above: GFR Calc Estimated GFR (MDRD) Non-Af Amer 109 mL/min >60 [facility] Comment on above: Non- GFR Calc Urine RBC 0 SEEN /hpf 0-5 [facility] Protein Test strip Ql (U)Ord ered By: Merry Tanner on 11-14-2023 Protein Ql (U) Negative Negative [facility] RBC Auto (Bld) [#/Vol]Ordere d By: Merry Tanner on 11-14-2023 RBC (Bld) [#/Vol] 4.41 10*6/uL 4.2-5.4 [facility] Serum or plasma acetone caitlin urement (mass/volume)Ordered By: Merry Tanner on 11-14-2023 Acetone [Mass/Vol] MODERATE NEG [facility] Serum or plasma calcium caitlin urement (mass/volume)Ordered By: Merry Tanner on 11-14-2023 Calcium [Mass/Vol] 9.3 mg/dL 8.5-10.1 [facility] Serum or plasma creatinine m easurement (mass/volume)Ordered By: Merry Tanner on 11-14-2023 Creatinine [Mass/Vol] 0.67 mg/dL 0.55-1.02 [facility] Comment on above: The validity of the calculated GFR & GFRAA in patients over 70 years has not been determined. Clinical correlation is essential. Serum or plasma urea nitroge n measurement (mass/volume)Ordered By: Merry Tanner on 11-14-2023 Urea nitrogen [Mass/Vol] 21 mg/dL 7-18 [facility] Squamous epithelial cells de tection in urine sediment by light microscopyOrdered By: Merry Tanner on 11-14-2023 Epithelial cells.squamous LM Ql (Urine sed) 0 SEEN /hpf 5-10 [facility] Thin prep Papanicolaou smear with manual screeningOrdered By: Merry Tanner on 11-14-2023 Thin prep Papanicolaou smear with manual screening 320 mg/dL 74-106 [facility] Comment on above: MANAGEMENT OF PATIEN T CARE PER NURSING PROTOCOL Thin prep Papanicolaou smear with manual screening 13 5-15 [facility] Urine blood detectionOrdered By: Merry Tanner on 11-14-2023 RBC Ql (U) Negative Negative [facility] Urine clarityOrdered By: Starr Tanner on 11-14-2023 Clarity (U) Clear Clear [facility] Urine color determinationOrd ered By: Merry Tanner on 11-14-2023 Color (U) Yellow Yellow [facility] Urine glucose detectionOrder ed By: Merry Tanner on 11-14-2023 Glucose Ql (U) 1000 mg/dl Normal [facility] Urine leukocyte esterase det ection by dipstickOrdered By: Merry Tanner on 11-14-2023 Leukocyte esterase Test strip Ql (U) Negative Negative [facility] Urine pHOrdered By: Remus Un gur on 11-14-2023 pH (U) 5.0 [pH] 5.0 - 8.0 [facility] Urine sediment bacteria coun t by microscopy (number/high power field)Ordered By: Merry Tanner on 11-14-2023 Bacteria LM.HPF (Urine sed) [#/Area] 0 /[HPF] None Seen [facility] Urine specific gravity measu rementOrdered By: Merry Ciro on 11-14-2023 Specific gravity (U) [Rel density] 1.015 1.002-1.030 [facility] Urine urobilinogen measureme ntOrdered By: Merry Ciro on 11-14-2023 Urobilinogen Ql (U) Normal mg/dl Normal [facility] CNOVon 11-13-2023 CNOV Office Visit (CHUCKY) BRIT VELASQUEZ ([id number]) 1990 F Date Time Provider Department 11/13/23 9:40 AM INDIRA FERNANDO During your visit today, we recorded the following information about you: Indira Fernando PA-C 11/13/2023 9:32 AM Signed New patient referred by self for R hand concerns. HPI: Ms. Velasquez is a R hand dominant 33 year old year old female who is active, with a chief complaint of R middle finger clicking and locking. The symptoms have been going on for months. Pt states it started with clicking but now she can flex the R middle finger and there is pain. No antecedent trauma, the patient is diabetic with her last A1C of 6.7. Other complaints include none. Evaluation has included none. Treatment to date has included none. The current pain is rated a 8/10 and interferes with ADL. 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 Mona-3 Fatty Acids, FISH OIL, (FISH OIL) 360-1,200 mg cap Take 1 capsule by mouth daily with breakfast. rosuvastatin (CRESTOR) 10 mg tablet Take 1 tablet by mouth every afternoon. sertraline (ZOLOFT) 50 mg tablet Take 50 mg by mouth once daily. levothyroxine (SYNTHROID) 112 mcg tablet Take 112 mcg by mouth daily before breakfast. cholecalciferol (VITAMIN D) 1,000 unit tab tablet Take 1,000 Units by mouth once daily. liothyronine (CYTOMEL) 5 mcg tablet Take 5 mcg by mouth once daily. metFORMIN ER (GLUCOPHAGE XR) 500 mg 24 hr tablet Take 1 tablet by mouth twice daily with meals. 60 tablet 2 ENSKYCE 0.15-0.03 mg per tablet Take 1 tablet by mouth every afternoon. Brompheniramine-Pseudo eph-DM (BROMFED DM) 2-30-10 mg/5 mL syrup Take 10 mL by mouth four times daily as needed. 200 mL 0 benzonatate (TESSALON PERLE) 100 mg capsule Take 2 capsules by mouth three times daily as needed. (Patient not taking: Reported on 06/13/2019 ) 30 capsule 0 levothyroxine (SYNTHROID) 100 mcg tablet Take 100 mcg by mouth daily before breakfast. (Patient not taking: Reported on 04/18/2023) desogestrel-ethinyl estradiol (ENSKYCE ORAL) Take 1 tablet by mouth once daily. (Patient not taking: Reported on 04/18/2023) benzonatate (TESSALON PERLE) 100 mg capsule Take 2 capsules by mouth three times daily as needed. (Patient not taking: Reported on 10/26/2018 ) 30 capsule 0 blood sugar diagnostic (FREESTYLE INSULINX TEST STRIPS) test strip Test blood sugar(s) 3 times daily. Dx: Type 2 DM - Uncontrolled E11.65 Insulin: No 150 Strip 2 Blood-Glucose Meter (FREESTYLE INSULINX) [place] Dx: Type 2 DM - Uncontrolled E11.65 1 Each 0 lancets (FREESTYLE LANCETS) 28 gauge [place] Test blood sugar(s) 2 times daily. Dx: Type 2 DM - Uncontrolled E11.65 Insulin: No (Patient taking differently: Test blood sugar(s) 3 times daily. Dx: Type 2 DM - Uncontrolled E11.65 Insulin: No ) 100 Each 2 No current facility-administered medications for this visit. ALLERGIES Allergen Reactions Rey Ordoñez [Othe* Other: See Comments Face breaks out in purple spots when she eats rey ordoñez. All medical history, medications and allergies have been discussed with the patient today. ROS: REVIEW OF SYMPTOMS: Constitutional: patient denies any recent fever or significant change in weight Gastrointestinal: patient denies any current abdominal discomfort Musculoskeletal: as noted in the HPI Neurologic: as noted in the HPI SOCIAL HISTORY: Tobacco Use: Quit 02/27/2017. Types: Cigarettes Physical Examination: Ms. Velasquez is a healthy appearing female in no acute distress. Bilateral upper limbs have equal and intact peripheral pulses. Skin does not demonstrate any rashes or lesions. Positive tenderness to palpation over the R middle finger A1 ricardo and + clicking of the involved digits, no locking. The extensor tendons all track centrally. Assessment: Trigger middle finger of right hand (primary encounter diagnosis) Plan: I discussed with Ms. Velasquez the diagnosis and different treatment options. We discussed observation, splinting, cortisone injections and surgical release. The patient would like to try cortisone injections. Pt will monitor her blood glucose closely for the next week. RTC 2 months. Additional Injections: R long A1 for trigger finger Informed Consent Consent Obtained: Verbal Souris Protocol A moment to CARE was completed. SIGN IN Personnel directly involved with the procedure wore the appropriate PPE. Special Equipment: N/A Patient/Surrogate Stated/Verified: Patient name, Date of , Relevant allergies and Intended procedure TIME OUT Intended patient and procedure match the source document(s). No relevant labs, photos, and/or imaging studies were applicable for review. Correct side/site marked and visible. Medications (more content not included)... Normal [facility] LABORATORYOrdered By: Gonzalez Elkins on 11-01-2023 Albumin DL <= 20 mg/L (U) [Mass/Vol] 817 mcg/dL Invalid Interpretation Code AO ADM SS Albumin/Creatinine DL <= 20 mg/L (U) [Mass ratio] 5 mcg/mg Normal 0 - 30 mcg/mg AO ADM SS Creatinine (U) [Mass/Vol] 148.8 mg/dL High 28.0 - 117.0 mg/dL AO ADM SS MALBRon 11-01-2023 U Creatinine 148.8 mg/dL High 28.0-117.0 [facility] Comment on above: Performed By: #### M ALBR #### [facility] [address], [place] [address] U Microalb 817 mcg/dL Normal [facility] Comment on above: Performed By: #### M ALBR #### [facility] [address], [place] [address] U Ratio Alb/Cre 5 mcg/mg Normal 0-30 [facility] Comment on above: Performed By: #### M ALBR #### [facility] [address], [place] [address] Basophil percentageOrdered B y: Cindy Hernandez on 10-24-2023 Bilirubin [Mass/Vol] 0.30 mg/dL 0.20-1.00 [facility] Comment on above: For patients on eltr ombopag therapy, use of Dimension [place] TBIL is not recommended. Chloride [Moles/Vol] 107 mmol/L 98-107 [facility] Cholesterol [Mass/Vol] 185 mg/dL <200 [facility] Comment on above: <200 mg/dL Desirable 200-240 mg/dL Borderline >240 mg/dL High Risk Glucose [Mass/Vol] 179 mg/dL 74-106 [facility] Comment on above: Fasting Glucose resu lt greater than or equal to 126 mg/dL suggests DIABETES MELLITUS per A.D.A. criteria. Potassium [Moles/Vol] 4.3 mmol/L 3.5-5.1 [facility] Protein [Mass/Vol] 7.1 g/dL 6.4-8.2 [facility] Sodium [Moles/Vol] 138 mmol/L 136-145 [facility] Triglyceride [Mass/Vol] 53 mg/dL <199 [facility] Comment on above: The drugs N-Acetylcy steine and Metamizole may falsely depress this assay.Serum Triglycerides Reference Interval Normal <150 mg/dL Borderline high 150 - 199 mg/dL High 200 - 499 mg/dL Very High > or = 500 mg/dL Laboratory - Chemistry and C hemistry - challengeOrdered By: Cindy Hernandez on 10-24-2023 Albumin/Globulin [Mass ratio] 1.2 {ratio} 0.9-2.4 [facility] ALP [Catalytic activity/Vol] 53 U/L 45-117 [facility] ALT [Catalytic activity/Vol] 44 U/L 13-56 [facility] Cholesterol in HDL [Mass/Vol] 78 mg/dL >40 [facility] Comment on above: The drugs N-Acetylcy steine and Metamizole may falsely depress this assay. Reference Range HDL <40 mg/dL Low HDL Cholesterol HDL >or= 60 mg/dL High HDL Cholesterol Cholesterol in LDL [Mass/Vol] 96 mg/dL 0-130 [facility] CO2 [Moles/Vol] 25.0 mmol/L 21.0-32.0 [facility] Globulin (S) [Mass/Vol] 3.3 g/dL 2.2-4.2 [facility] Urea nitrogen/Creatinine [Mass ratio] 27.9 mg/mg 10-20 [facility] No Panel InformationOrdered By: Cindy Hernandez on 10-24-2023 Estimated GFR (MDRD) Amer 138 mL/min >60 [facility] Comment on above: GFR Calc Estimated GFR (MDRD) Non-Af Amer 114 mL/min >60 [facility] Comment on above: Non- GFR Calc Vitamin D 25-Hydroxy 37.1 ng/mL [facility] Comment on above: Vitamin D 25(OH) Sta tus Range Deficiency <20 ng/mL (50nmol/L) Insufficiency 20 - 30 ng/mL (50 - 75 nmol/L) Sufficiency 30 - 100 ng/mL (75 - 250 nmol/L) Toxicity >100 ng/mL (>250 nmol/L) VLDL Cholesterol 11 mg/dL 5-40 [facility] Serum or plasma calcium caitlin urement (mass/volume)Ordered By: Cindy Hernandez on 10-24-2023 Calcium [Mass/Vol] 9.2 mg/dL 8.5-10.1 [facility] Serum or plasma creatinine m easurement (mass/volume)Ordered By: Cindy Hernandez on 10-24-2023 Creatinine [Mass/Vol] 0.64 mg/dL 0.55-1.02 [facility] Comment on above: The validity of the calculated GFR & GFRAA in patients over 70 years has not been determined. Clinical correlation is essential. Serum or plasma thyroid stim ulating hormone (TSH) measurement (units/volume)Ordered By: Cindy Hernandez on 10-24-2023 TSH Qn 2.28 uIU/mL 0.358-3.74 [facility] Serum or plasma urea nitroge n measurement (mass/volume)Ordered By: Cindy Hernandez on 10-24-2023 Urea nitrogen [Mass/Vol] 18 mg/dL 7-18 [facility] Thin prep Papanicolaou smear with manual screeningOrdered By: Cindy Hernandez on 10-24-2023 Thin prep Papanicolaou smear with manual screening 3.8 g/dL 3.2-5.0 [facility] Thin prep Papanicolaou smear with manual screening 24 U/L 15-37 [facility] Thin prep Papanicolaou smear with manual screening 6 5-15 [facility] Thin prep Papanicolaou smear with manual screening 1.12 ng/dL 0.76-1.46 [facility] Whole blood hemoglobin A1c/t otal hemoglobin ratio (mass fraction)Ordered By: Cindy Hernandez on 10-24-2023 HbA1c (Bld) [Mass fraction] 6.6 % 3.8-5.6 [facility] Comment on above: Normal < 5.7 % Predi abetic 5.7 - 6.4 % Diabetic >or= 6.5 % Please note range changes. Basophil percentageOrdered B y: Cindy Hernandez on 03-05-2023 Cholesterol [Mass/Vol] 146 mg/dL <200 [facility] Comment on above: <200 mg/dL Desirable 200-240 mg/dL Borderline >240 mg/dL High Risk Triglyceride [Mass/Vol] 42 mg/dL <199 [facility] Comment on above: The drugs N-Acetylcy steine and Metamizole may falsely depress this assay.Serum Triglycerides Reference Interval Normal <150 mg/dL Borderline high 150 - 199 mg/dL High 200 - 499 mg/dL Very High > or = 500 mg/dL Laboratory - Chemistry and C hemistry - challengeOrdered By: Cindy Hernandez on 03-05-2023 Free T4 [Mass/Vol] 1.30 ng/dL 0.76-1.46 [facility] No Panel InformationOrdered By: Cindy Hernandez on 03-05-2023 Thyroid Stimulating Hormone (TSH) 0.54 uIU/mL 0.358-3.74 [facility] Serum or plasma cholesterol in HDL measurement (mass/volume)Ordered By: Cindy Hernandez on 03-05-2023 Cholesterol in HDL [Mass/Vol] 83 mg/dL >40 [facility] Comment on above: The drugs N-Acetylcy steine and Metamizole may falsely depress this assay. Reference Range HDL <40 mg/dL Low HDL Cholesterol HDL >or= 60 mg/dL High HDL Cholesterol Serum or plasma cholesterol in VLDL measurement (mass/volume)Ordered By: Cindy Hernandez on 03-05-2023 Cholesterol in VLDL [Mass/Vol] 8 mg/dL 5-40 [facility] Serum or plasma low density lipoprotein (LDL) cholesterol measurement (mass/volume)Ordered By: Cindy Hernandez on 03-05-2023 Cholesterol in LDL [Mass/Vol] 55 mg/dL 0-130 [facility] Whole blood hemoglobin A1c/t otal hemoglobin ratio (mass fraction)Ordered By: Cindy Hernandez on 03-05-2023 HbA1c (Bld) [Mass fraction] 6.3 % 3.8-5.6 [facility] Comment on above: Normal < 5.7 % Predi abetic 5.7 - 6.4 % Diabetic >or= 6.5 % Please note range changes. Basophil percentageOrdered B y: Cindy Hernandez on 10-14-2022 Bilirubin [Mass/Vol] 0.40 mg/dL 0.20-1.00 [facility] Comment on above: For patients on eltr ombopag therapy, use of Dimension [place] TBIL is not recommended. Chloride [Moles/Vol] 104 mmol/L 98-107 [facility] Glucose [Mass/Vol] 144 mg/dL 74-106 [facility] Comment on above: Fasting Glucose resu lt greater than or equal to 126 mg/dL suggests DIABETES MELLITUS per A.D.A. criteria. Potassium [Moles/Vol] 4.3 mmol/L 3.5-5.1 [facility] Protein [Mass/Vol] 6.9 g/dL 6.4-8.2 [facility] Sodium [Moles/Vol] 139 mmol/L 136-145 [facility] WBC (Bld) [#/Vol] 4.6 10*3/uL 4.4-11.0 [facility] Blood erythrocytes count (nu mber/volume)Ordered By: Cindy Hernandez on 10-14-2022 RBC (Bld) [#/Vol] 4.65 10*6/uL 4.2-5.4 [facility] Blood hemoglobin measurement (mass/volume)Ordered By: Cindy Hernandez on 10-14-2022 Hemoglobin (Bld) [Mass/Vol] 13.9 g/dL 12.0-15.0 [facility] Blood platelet mean volumeOr dered By: Cindy Hernandez on 10-14-2022 Platelet mean volume (Bld) [Entitic vol] 9.0 fL 6.2-12.0 [facility] Determination of erythrocyte mean corpuscular volume (MCV)Ordered By: Cindy Hernandez on 10-14-2022 MCV (RBC) [Entitic vol] 89.0 fL 81-99 [facility] Hematocrit Auto (Bld) [Volum e fraction]Ordered By: Cindy Hernandez on 10-14-2022 Hematocrit (Bld) [Volume fraction] 41.4 % 37-47 [facility] Laboratory - Chemistry and C hemistry - challengeOrdered By: Cindy Hernandez on 10-14-2022 ALP [Catalytic activity/Vol] 38 U/L 45-117 [facility] ALT [Catalytic activity/Vol] 22 U/L 13-56 [facility] CO2 [Moles/Vol] 26.0 mmol/L 21.0-32.0 [facility] Free T4 [Mass/Vol] 1.45 ng/dL 0.76-1.46 [facility] Globulin (S) [Mass/Vol] 3.2 g/dL 2.2-4.2 [facility] Urea nitrogen/Creatinine [Mass ratio] 24.3 mg/mg 10-20 [facility] Laboratory - Hematology and Cell countsOrdered By: Cindy Hernandez on 10-14-2022 Erythrocyte distribution width (RBC) [Entitic vol] 39.8 fL 35.1-43.9 [facility] Erythrocyte distribution width (RBC) [Ratio] 12.3 % 11.6-14.6 [facility] MCH (RBC) [Entitic mass] 29.9 pg 27.0-32.0 [facility] MCHC Auto (RBC) [Mass/Vol]Or dered By: Cindy Hernandez on 10-14-2022 MCHC (RBC) [Mass/Vol] 33.6 g/dL 32-36 [facility] No Panel InformationOrdered By: Cindy Hernandez on 10-14-2022 Estimated GFR (MDRD) Amer 126 mL/min >60 [facility] Comment on above: GFR Calc Estimated GFR (MDRD) Non-Af Amer 104 mL/min >60 [facility] Comment on above: Non- GFR Calc Follicle Stimulating Hormone 5.9 mIU/mL [facility] Comment on above: NORMAL REFERENCE RAN GES FEMALE FOLLICULAR 2.3 - 12.6 mIU/mL MID-CYCLE PEAK 5.2 - 17.5 mIU/mL LUTEAL 1.7 - 12.9 mIU/mL POST-MENOPAUSAL ON MHT 5.9 - 72.8 mIU/mL NOT ON MHT 12.7 - 132.2 mlU/mL MALE 0.7 - 10.8 mIU/mL Luteinizing Hormone 6.4 mIU/mL [facility] Comment on above: NORMAL REFERENCE RAN GES FEMALE FOLLICULAR 1.9 - 26.2 mIU/mL MID-CYCLE PEAK 22.8 - 76.1 mIU/mL LUTEAL 0.6 - 16.6 mIU/mL POST-MENOPAUSAL ON MHT 1.1 - 52.4 mIU/mL NOT ON MHT 8.6 - 61.8 mIU/mL MALE 1.2 - 10.6 mIU/mL Thyroid Stimulating Hormone (TSH) 0.96 uIU/mL 0.358-3.74 [facility] Platelets bldOrdered By: Jorge Hernandez on 10-14-2022 Platelets (Bld) [#/Vol] 228 10*3/uL 150-450 [facility] Serum or plasma albumin caitlin urement (mass/volume)Ordered By: Cindy Hernandez on 10-14-2022 Albumin [Mass/Vol] 3.7 g/dL 3.2-5.0 [facility] Serum or plasma albumin/glob ulin mass ratioOrdered By: Cindy Hernandez on 10-14-2022 Albumin/Globulin [Mass ratio] 1.2 {ratio} 0.9-2.4 [facility] Serum or plasma calcium caitlin urement (mass/volume)Ordered By: Cindy Hernandez on 10-14-2022 Calcium [Mass/Vol] 9.2 mg/dL 8.5-10.1 [facility] Serum or plasma creatinine m easurement (mass/volume)Ordered By: Cindy Hernandez on 10-14-2022 Creatinine [Mass/Vol] 0.70 mg/dL 0.55-1.02 [facility] Comment on above: The validity of the calculated GFR & GFRAA in patients over 70 years has not been determined. Clinical correlation is essential. Serum or plasma estradiol (E 2) measurement (mass/volume)Ordered By: Cindy Hernandez on 10-14-2022 E2 [Mass/Vol] 37.3 pg/mL [facility] Comment on above: NORMAL REFERENCE RAN GES FEMALE FOLLICULAR 21.4 - 164.8 pg/mL MID-CYCLE PEAK 49.9 - 367.2 pg/mL LUTEAL 40.2 - 259.0 pg/mL POST-MENOPAUSAL ON MHT <11.0 - 462.1 pg/mL NOT ON MHT <11.0 - 58.3 pg/mL MALE <11.0 - 52.5 pg/mL NOTE:[employer] HAS CONFIRMED THE DRUG FULVETRANT (FASLODEX) MAY CAUSE FALSELY ELEVATED ESTRADIOL RESULTS WHEN USING THIS TEST METHOD. IF PATIENT IS TAKING FULVESTRANT AN ALTERNATIVE METHOD SHOULD BE USED TO DETERMINE ESTRADIOL CONCENTRATION. Serum or plasma progesterone measurement (mass/volume)Ordered By: Cindy Hernandez on 10-14-2022 Progesterone [Mass/Vol] ng/mL See Comment [facility] Comment on above: Progesterone Referen ce Table: UNITS Female: Follicular 0.15 - 1.40 ng/mL Luteal 3.34 - 25.56 ng/mL Mid-luteal 4.44 - 28.03 ng/mL Postmenopausal 0.0 - 0.73 ng/mL : 1st Trimester 11.22 - 90.00 ng/mL 2nd Trimester 25.55 - 89.40 ng/mL 3rd Trimester 48.40 -422.50 ng/mL Serum or plasma prolactin me asurement (mass/volume)Ordered By: Cindy Hernandez on 10-14-2022 Prolactin [Mass/Vol] 4.4 ng/mL [facility] Comment on above: NORMAL REFERENCE RAN GES FEMALE NON- 2.2 - 30.3 ng/mL 8.1 - 347.6 ng/mL POST-MENOPAUSAL 0.7 - 31.5 ng/mL MALE 2.5 - 17.4 ng/mL Serum or plasma urea nitroge n measurement (mass/volume)Ordered By: Cindy Hernandez on 10-14-2022 Urea nitrogen [Mass/Vol] 17 mg/dL - [facility] Thin prep Papanicolaou smear with manual screeningOrdered By: Cindy Hernandez on 10-14-2022 Thin prep Papanicolaou smear with manual screening 23 U/L 15- [facility] Thin prep Papanicolaou smear with manual screening 9 5- [facility] Absolute lymphocyte countOrd ered By: Dr. Kearns on 10-07-2022 Lymphocytes Auto (Unsp spec) [#/Vol] 1.73 10*3/uL 0.83-4.51 [facility] Basophil percentageOrdered B y: Dr. Kearns on 10-07-2022 Basophils/100 WBC (Bld) 0.8 % 0-1 [facility] Bilirubin [Mass/Vol] 0.30 mg/dL 0.20-1.00 [facility] Comment on above: For patients on eltr ombopag therapy, use of Dimension [place] TBIL is not recommended. Chloride [Moles/Vol] 103 mmol/L 98-107 [facility] Cholesterol [Mass/Vol] 156 mg/dL <200 [facility] Comment on above: <200 mg/dL Desirable 200-240 mg/dL Borderline >240 mg/dL High Risk Eosinophils/100 WBC (Bld) 1.6 % 0-5 [facility] Glucose [Mass/Vol] 133 mg/dL 74-106 [facility] Comment on above: Fasting Glucose resu lt greater than or equal to 126 mg/dL suggests DIABETES MELLITUS per A.D.A. criteria. Neutrophils (Bld) [#/Vol] 1.6 10*3/uL 2.0-7.7 [facility] Neutrophils/100 WBC (Bld) 42.5 % 47-70 [facility] Potassium [Moles/Vol] 3.7 mmol/L 3.5-5.1 [facility] Protein [Mass/Vol] 6.3 g/dL 6.4-8.2 [facility] Sodium [Moles/Vol] 138 mmol/L 136-145 [facility] Triglyceride [Mass/Vol] 105 mg/dL <199 [facility] Comment on above: The drugs N-Acetylcy steine and Metamizole may falsely depress this assay.Serum Triglycerides Reference Interval Normal <150 mg/dL Borderline high 150 - 199 mg/dL High 200 - 499 mg/dL Very High > or = 500 mg/dL WBC (Bld) [#/Vol] 3.7 10*3/uL 4.4-11.0 [facility] Blood erythrocytes count (nu mber/volume)Ordered By: Dr. Kearns on 10-07-2022 RBC (Bld) [#/Vol] 4.25 10*6/uL 4.2-5.4 [facility] Blood hemoglobin measurement (mass/volume)Ordered By: Dr. Kearns on 10-07-2022 Hemoglobin (Bld) [Mass/Vol] 12.5 g/dL 12.0-15.0 [facility] Blood lymphocytes/100 leukoc ytesOrdered By: Dr. Kearns on 10-07-2022 Lymphocytes/100 WBC (Bld) 46.5 % 19-41 [facility] Blood monocytes/100 leukocyt esOrdered By: Dr. Kearns on 10-07-2022 Monocytes/100 WBC (Bld) 8.6 % 0-10 [facility] Blood platelet mean volumeOr dered By: Dr. Kearns on 10-07-2022 Platelet mean volume (Bld) [Entitic vol] 9.2 fL 6.2-12.0 [facility] Determination of erythrocyte mean corpuscular volume (MCV)Ordered By: Dr. Kearns on 10-07-2022 MCV (RBC) [Entitic vol] 87.1 fL 81-99 [facility] Glucose Glucometer (BldC) [M ass/Vol]Ordered By: Dr. Leach on 10-07-2022 Glucose [Mass/Vol] 153 mg/dL 74-106 [facility] Comment on above: MANAGEMENT OF PATIEN T CARE PER NURSING PROTOCOL Hematocrit Auto (Bld) [Volum e fraction]Ordered By: Dr. Kearns on 10-07-2022 Hematocrit (Bld) [Volume fraction] 37.0 % 37-47 [facility] Laboratory - Chemistry and C hemistry - challengeOrdered By: Dr. Kearns on 10-07-2022 ALP [Catalytic activity/Vol] 36 U/L 45-117 [facility] ALT [Catalytic activity/Vol] 14 U/L 13-56 [facility] CO2 [Moles/Vol] 28.0 mmol/L 21.0-32.0 [facility] Free T4 [Mass/Vol] 1.19 ng/dL 0.76-1.46 [facility] Globulin (S) [Mass/Vol] 3.2 g/dL 2.2-4.2 [facility] Urea nitrogen/Creatinine [Mass ratio] 24.5 mg/mg 10-20 [facility] Laboratory - Hematology and Cell countsOrdered By: Dr. Kearns on 10-07-2022 Erythrocyte distribution width (RBC) [Entitic vol] 39.6 fL 35.1-43.9 [facility] Erythrocyte distribution width (RBC) [Ratio] 12.3 % 11.6-14.6 [facility] Immature granulocytes/100 WBC (Bld) 0.000 % 0.0-0.9 [facility] Comment on above: IG% - Immature Granu locytes (promyelocytes, myelocytes and metamyelocytes) > 1% indicates that a LEFT SHIFT is Present. MCH (RBC) [Entitic mass] 29.4 pg 27.0-32.0 [facility] Nucleated RBC/100 WBC (Bld) [Ratio] 0 % 0-5 [facility] MCHC Auto (RBC) [Mass/Vol]Or dered By: Dr. Kearns on 10-07-2022 MCHC (RBC) [Mass/Vol] 33.8 g/dL 32-36 [facility] No Panel InformationOrdered By: Dr. Kearns on 10-07-2022 Estimated Creatinine Clearance Calc 128.39 ml/min [facility] Estimated GFR (MDRD) Amer 174 mL/min >60 [facility] Comment on above: GFR Calc Estimated GFR (MDRD) Non-Af Amer 144 mL/min >60 [facility] Comment on above: Non- GFR Calc Thyroid Stimulating Hormone (TSH) 6.51 uIU/mL 0.358-3.74 [facility] Platelets bldOrdered By: Dr. Kearns on 10-07-2022 Platelets (Bld) [#/Vol] 174 10*3/uL 150-450 [facility] Serum or plasma albumin caitlin urement (mass/volume)Ordered By: Dr. Kearns on 10-07-2022 Albumin [Mass/Vol] 3.1 g/dL 3.2-5.0 [facility] Serum or plasma albumin/glob ulin mass ratioOrdered By: Dr. Kearns on 10-07-2022 Albumin/Globulin [Mass ratio] 1.0 {ratio} 0.9-2.4 [facility] Serum or plasma calcium caitlin urement (mass/volume)Ordered By: Dr. Kearns on 10-07-2022 Calcium [Mass/Vol] 8.6 mg/dL 8.5-10.1 [facility] Serum or plasma cholesterol in HDL measurement (mass/volume)Ordered By: Dr. Kearns on 10-07-2022 Cholesterol in HDL [Mass/Vol] 56 mg/dL >40 [facility] Comment on above: The drugs N-Acetylcy steine and Metamizole may falsely depress this assay. Reference Range HDL <40 mg/dL Low HDL Cholesterol HDL >or= 60 mg/dL High HDL Cholesterol Serum or plasma cholesterol in VLDL measurement (mass/volume)Ordered By: Dr. Kearns on 10-07-2022 Cholesterol in VLDL [Mass/Vol] 21 mg/dL 5-40 [facility] Serum or plasma creatinine m easurement (mass/volume)Ordered By: Dr. Kearns on 10-07-2022 Creatinine [Mass/Vol] 0.53 mg/dL 0.55-1.02 [facility] Comment on above: The validity of the calculated GFR & GFRAA in patients over 70 years has not been determined. Clinical correlation is essential. Serum or plasma low density lipoprotein (LDL) cholesterol measurement (mass/volume)Ordered By: Dr. Kearns on 10-07-2022 Cholesterol in LDL [Mass/Vol] 79 mg/dL 0-130 [facility] Serum or plasma urea nitroge n measurement (mass/volume)Ordered By: Dr. Kearns on 10-07-2022 Urea nitrogen [Mass/Vol] 13 mg/dL 7-18 [facility] Thin prep Papanicolaou smear with manual screeningOrdered By: Dr. Kearns on 10-07-2022 Thin prep Papanicolaou smear with manual screening 6 U/L 15-37 [facility] Thin prep Papanicolaou smear with manual screening 7 5-15 [facility] Whole blood hemoglobin A1c/t otal hemoglobin ratio (mass fraction)Ordered By: Dr. Kearns on 10-07-2022 HbA1c (Bld) [Mass fraction] 6.4 % 3.8-5.6 [facility] Comment on above: Normal < 5.7 % Predi abetic 5.7 - 6.4 % Diabetic >or= 6.5 % Please note range changes. Absolute lymphocyte countOrd ered By: Dr. Lopez on 2022 Lymphocytes Auto (Unsp spec) [#/Vol] 1.87 10*3/uL 0.83-4.51 [facility] Basophil percentageOrdered B y: Dr. Lopez on 2022 Basophils/100 WBC (Bld) 0.4 % 0-1 [facility] Chloride [Moles/Vol] 99 mmol/L 98-107 [facility] Eosinophils/100 WBC (Bld) 2.0 % 0-5 [facility] Glucose [Mass/Vol] 193 mg/dL 74-106 [facility] Comment on above: Fasting Glucose resu lt greater than or equal to 126 mg/dL suggests DIABETES MELLITUS per A.D.A. criteria. Neutrophils (Bld) [#/Vol] 2.1 10*3/uL 2.0-7.7 [facility] Neutrophils/100 WBC (Bld) 46.2 % 47-70 [facility] Potassium [Moles/Vol] 3.8 mmol/L 3.5-5.1 [facility] Sodium [Moles/Vol] 135 mmol/L 136-145 [facility] WBC (Bld) [#/Vol] 4.5 10*3/uL 4.4-11.0 [facility] Beta hCG serum qualOrdered B y: Dr. Lopez on 2022 Beta HCG ( test) Ql Negative [facility] Blood erythrocytes count (nu mber/volume)Ordered By: Dr. Lopez on 2022 RBC (Bld) [#/Vol] 4.55 10*6/uL 4.2-5.4 [facility] Blood hemoglobin measurement (mass/volume)Ordered By: Dr. Lopez on 2022 Hemoglobin (Bld) [Mass/Vol] 13.5 g/dL 12.0-15.0 [facility] Blood lymphocytes/100 leukoc ytesOrdered By: Dr. Lopez on 2022 Lymphocytes/100 WBC (Bld) 41.6 % 19-41 [facility] Blood monocytes/100 leukocyt esOrdered By: Dr. Lopez on 2022 Monocytes/100 WBC (Bld) 9.6 % 0-10 [facility] Blood platelet mean volumeOr dered By: Dr. Lopez on 2022 Platelet mean volume (Bld) [Entitic vol] 9.2 fL 6.2-12.0 [facility] Determination of erythrocyte mean corpuscular volume (MCV)Ordered By: Dr. Lopez on 2022 MCV (RBC) [Entitic vol] 87.9 fL 81-99 [facility] Glucose Glucometer (dC) [M ass/Vol]Ordered By: Dr. Lopez on 2022 Glucose [Mass/Vol] 189 mg/dL 74-106 [facility] Comment on above: MANAGEMENT OF PATIEN T CARE PER NURSING PROTOCOL Hematocrit Auto (Bld) [Volum e fraction]Ordered By: Dr. Lopez on 2022 Hematocrit (Bld) [Volume fraction] 40.0 % 37-47 [facility] INR in Blood by Coagulation assayOrdered By: Dr. Lopez on 2022 INR Coag (Bld) [Relative time] 0.9 {INR} [facility] Laboratory - Chemistry and C hemistry - challengeOrdered By: Dr. Lopez on 2022 CO2 [Moles/Vol] 29.0 mmol/L 21.0-32.0 [facility] Urea nitrogen/Creatinine [Mass ratio] 23.9 mg/mg 10-20 [facility] Laboratory - Chemistry and C hemistry - challengeOrdered By: Dr. Kearns on 2022 Magnesium [Mass/Vol] 1.6 mg/dL 1.6-2.6 [facility] Laboratory - CoagulationOrde red By: Dr. Lopez on 2022 aPTT Coag (Bld) [Time] 26.0 s 24.1-36.2 [facility] PT Coag (PPP) [Time] 12.2 s 11.7-14.9 [facility] Laboratory - Hematology and Cell countsOrdered By: Dr. Lopez on 2022 Erythrocyte distribution width (RBC) [Entitic vol] 39.2 fL 35.1-43.9 [facility] Erythrocyte distribution width (RBC) [Ratio] 12.2 % 11.6-14.6 [facility] Immature granulocytes/100 WBC (Bld) 0.200 % 0.0-0.9 [facility] Comment on above: IG% - Immature Granu locytes (promyelocytes, myelocytes and metamyelocytes) > 1% indicates that a LEFT SHIFT is Present. MCH (RBC) [Entitic mass] 29.7 pg 27.0-32.0 [facility] Nucleated RBC/100 WBC (Bld) [Ratio] 0 % 0-5 [facility] MCHC Auto (RBC) [Mass/Vol]Or dered By: Dr. Lopez on 2022 MCHC (RBC) [Mass/Vol] 33.8 g/dL 32-36 [facility] No Panel InformationOrdered By: Dr. Lopez on 2022 Estimated Creatinine Clearance Calc 81.01 ml/min [facility] Estimated GFR (MDRD) Amer 103 mL/min >60 [facility] Comment on above: GFR Calc Estimated GFR (MDRD) Non-Af Amer 85 mL/min >60 [facility] Comment on above: Non- GFR Calc Troponin I High Sensitivity < 3 pg/mL 3.0-54.0 [facility] Comment on above: Please Note: New Steffen t Units and Gender Specific Reference Ranges. For more information see Policy Stat Procedure [place] High Sensitivity Troponin (TNIH) and attachments. No Panel InformationOrdered By: Dr. Kearns on 2022 Ethyl Alcohol Level < 3.0 mg/dL [facility] Comment on above: The serum:whole bloo d ethanol ratio is approximately 1.14and varies slightly with hematocrit. Medical Alcohol reference interval and critical value innon-tolerant individuals; 50 - 100 Impairment 100 Intoxication 100 - 250 Severe Poisoning 250 - 400 Deep/possible fatal coma Platelets bldOrdered By: Dr. Lopez on 2022 Platelets (Bld) [#/Vol] 193 10*3/uL 150-450 [facility] Serum or plasma calcium caitlin urement (mass/volume)Ordered By: Dr. Lopez on 2022 Calcium [Mass/Vol] 10.3 mg/dL 8.5-10.1 [facility] Serum or plasma creatinine m easurement (mass/volume)Ordered By: Dr. Lopze on 2022 Creatinine [Mass/Vol] 0.84 mg/dL 0.55-1.02 [facility] Comment on above: The validity of the calculated GFR & GFRAA in patients over 70 years has not been determined. Clinical correlation is essential. Serum or plasma urea nitroge n measurement (mass/volume)Ordered By: Dr. Lopez on 2022 Urea nitrogen [Mass/Vol] 20 mg/dL 7-18 [facility] Thin prep Papanicolaou smear with manual screeningOrdered By: Dr. Lopez on 2022 Thin prep Papanicolaou smear with manual screening 7 5-15 [facility] No Panel Informationon 10-04 Influenza Types A,B Rapid (Clinic) Negative [facility] POC SARS CoV-2 Antigen Negative [facility] LABORATORYOrdered By: SYSTEM SYSTEM on 09-19-2022 Albumin BCP dye [Mass/Vol] 4.0 G/dL Invalid Interpretation Code 3.5 - 5.0 G/dL AO ADM SS Albumin/Globulin [Mass ratio] 1.3 {ratio} Invalid Interpretation Code 1.1 - 2.5 ratio AO ADM SS ALP [Catalytic activity/Vol] 41 U/L Invalid Interpretation Code 40 - 135 U/L AO ADM SS ALT With P-5'-P [Catalytic activity/Vol] 33 U/L Invalid Interpretation Code 14 - 59 U/L AO ADM SS AST With P-5'-P [Catalytic activity/Vol] 42 U/L Invalid Interpretation Code 10 - 40 U/L AO ADM SS Bilirubin [Mass/Vol] 0.4 mg/dL Invalid Interpretation Code 0.2 - 1.0 mg/dL AO ADM SS C peptide [Mass/Vol] 0.77 ng/mL Invalid Interpretation Code 0.81 - 3.85 ng/mL AH ADM SS Calcium [Mass/Vol] 9.1 mg/dL Invalid Interpretation Code 8.4 - 10.2 mg/dL AO ADM SS Chloride [Moles/Vol] 98 mmol/L Invalid Interpretation Code 98 - 107 mmol/L AO ADM SS CO2 [Moles/Vol] 28 mmol/L Invalid Interpretation Code 22 - 29 mmol/L AO ADM SS Creatinine [Mass/Vol] 0.64 mg/dL Invalid Interpretation Code 0.55 - 1.02 mg/dL AO ADM SS Electrolyte Balance 9.0 mEq/L Invalid Interpretation Code 4.0 - 15.0 mEq/L AO ADM SS Free T4 [Mass/Vol] 1.27 ng/dL Invalid Interpretation Code 0.76 - 1.46 ng/dL AO ADM SS GFR 133 ml/min/1.73sqm Invalid Interpretation Code AO Chemistry S GFR Non- 110 ml/min/1.73sqm Invalid Interpretation Code AO Chemistry S Globulin 3.0 G/dL Invalid Interpretation Code AO ADM SS Glucose [Mass/Vol] 136 mg/dL Invalid Interpretation Code 70 - 105 mg/dL AO ADM SS HbA1c (Bld) [Mass fraction] 6.4 % Invalid Interpretation Code 4.3 - 6.4 % AO ADM SS Potassium [Moles/Vol] 4.4 mmol/L Invalid Interpretation Code 3.5 - 5.1 mmol/L AO ADM SS Protein [Mass/Vol] 7.0 G/dL Invalid Interpretation Code 6.4 - 8.2 G/dL AO ADM SS Sodium [Moles/Vol] 135 mmol/L Invalid Interpretation Code 136 - 145 mmol/L AO ADM SS TSH Qn 0.73 m[IU]/L Invalid Interpretation Code 0.36 - 3.74 mcIU/mL AO ADM SS Urea nitrogen [Mass/Vol] 16 mg/dL Invalid Interpretation Code 7 - 18 mg/dL AO ADM SS Urea nitrogen/Creatinine [Mass ratio] 25 ratio Invalid Interpretation Code 7 - 27 ratio AO ADM SS Vit. D 25-Hydroxy 56.1 ng/mL Invalid Interpretation Code AO ADM SS LABORATORYOrdered By: Windy Avila on 09-19-2022 Cholesterol [Mass/Vol] 270 mg/dL Invalid Interpretation Code 0 - 200 mg/dL AO ADM SS Cholesterol in HDL [Mass/Vol] 86 mg/dL Invalid Interpretation Code 40 - 60 mg/dL AO ADM SS Cholesterol in LDL [Mass/Vol] 171 mg/dL Invalid Interpretation Code 0 - 130 mg/dL AO ADM SS Triglyceride [Mass/Vol] 66 mg/dL Invalid Interpretation Code 0 - 150 mg/dL AO ADM SS Cervical or vagninal specime n microscopic examination by cytology stain (reported ason 11-09-2021 Cytology report Cyto stain Doc (Cvx/Vag) Comment [facility] Work Phone: Comment on above: The Pap smear is a s creening test designed to aid in thedetection of premalignant and malignant conditions of theuterine cervix. It is not a diagnostic procedure andshould not be used as the sole means of detecting cervicalcancer. Both false-positive and false-negative reports dooccur. Chlamydia trachomatis rRNA d etection by probe and target amplification methodon 11-09-2021 C. trachomatis rRNA VENUS+probe Ql (Unsp spec) Negative Negative [facility] Work Phone: Detection in cervical specim en of any of human papilloma virus (HPV) 16, 18, 31, 33,on 11-09-2021 HPV 16+18+31+33+35+39+45+51 +52+56+58+59+66+68 DNA Probe+sig amp Ql (Cvx) Negative Negative [facility] Work Phone: Comment on above: This nucleic acid am plification test detects fourteen high-risk HPV types (16,18,31,33,35,39,45,51,52,56,58,59,66,68)without differentiation.Performed at: [address] [id number] Director: Chastity Quintero MD, Phone: [phone] at: =[address] [id number] Director: Chastity Quintero MD, Phone: [phone] Laboratory - Cytologyon 10-28 Retail Sales Manager Cyto stain Nom (Cvx/Vag) [ID] Comment [facility] Work Phone: Comment on above: Bambi Luong, Cyto technologist (ASCP) Laboratory - Microbiology an d Antimicrobial susceptibilityon 11-09-2021 N. gonorrhoeae DNA VENUS+probe Ql (Unsp spec) Negative Negative [facility] Work Phone: Comment on above: Performed at: =G - [address] [id number] Director: Chastity Quintero MD, Phone: [phone] Laboratory - Miscellaneous t estson 11-09-2021 Service comment (Unsp spec) [Interp] Comment [facility] Work Phone: Comment on above: This liquid based Th inPrep(R) pap test was screened withthe use of an image guided system. Service comment (Unsp spec) [Interp] . [facility] Work Phone: No Panel Informationon 11-09 Pathology report final diagnosis Narrative Comment [facility] Work Phone: Comment on above: NEGATIVE FOR INTRAEP ITHELIAL LESION OR MALIGNANCY. LABORATORYOrdered By: Windy Avila on 10-19-2021 Albumin BCP dye [Mass/Vol] 3.6 G/dL Invalid Interpretation Code 3.5 - 5.0 G/dL AO ADM SS Albumin/Globulin [Mass ratio] 1.2 {ratio} Invalid Interpretation Code 1.1 - 2.5 ratio AO ADM SS ALP [Catalytic activity/Vol] 43 U/L Invalid Interpretation Code 40 - 135 U/L AO ADM SS ALT With P-5'-P [Catalytic activity/Vol] 24 U/L Invalid Interpretation Code 14 - 59 U/L AO ADM SS AST With P-5'-P [Catalytic activity/Vol] 15 U/L Invalid Interpretation Code 10 - 40 U/L AO ADM SS Basophil, Absolute 0.00 103/mcL Invalid Interpretation Code 0.00 - 0.19 10^3/mcL AO Auto Heme SS Basophils/100 WBC (Bld) 0.5 % Invalid Interpretation Code 0.0 - 2.5 % AO Auto Heme SS Bilirubin [Mass/Vol] 0.3 mg/dL Invalid Interpretation Code 0.2 - 1.0 mg/dL AO ADM SS Calcium [Mass/Vol] 9.3 mg/dL Invalid Interpretation Code 8.4 - 10.2 mg/dL AO ADM SS Chloride [Moles/Vol] 102 mmol/L Invalid Interpretation Code 98 - 107 mmol/L AO ADM SS Cholesterol [Mass/Vol] 217 mg/dL Invalid Interpretation Code 0 - 200 mg/dL AO ADM SS Cholesterol in HDL [Mass/Vol] 73 mg/dL Invalid Interpretation Code 40 - 60 mg/dL AO ADM SS Cholesterol in LDL [Mass/Vol] 126 mg/dL Invalid Interpretation Code 0 - 130 mg/dL AO ADM SS CO2 [Moles/Vol] 24 mmol/L Invalid Interpretation Code 22 - 29 mmol/L AO ADM SS Creatinine [Mass/Vol] 0.70 mg/dL Invalid Interpretation Code 0.55 - 1.02 mg/dL AO ADM SS Electrolyte Balance 12.0 mEq/L Invalid Interpretation Code 4.0 - 15.0 mEq/L AO ADM SS Eosinophil, Absolute 0.10 103/mcL Invalid Interpretation Code 0.00 - 0.40 10^3/mcL AO Auto Heme SS Eosinophils/100 WBC (Bld) 1.5 % Invalid Interpretation Code 0.0 - 7.0 % AO Auto Heme SS Erythrocyte distribution width (RBC) [Ratio] 13.0 % Invalid Interpretation Code 11.5 - 14.5 % AO Auto Heme SS Free T4 [Mass/Vol] 1.24 ng/dL Invalid Interpretation Code 0.76 - 1.46 ng/dL AO ADM SS Globulin 3.1 G/dL Invalid Interpretation Code AO ADM SS Glucose [Mass/Vol] 150 mg/dL Invalid Interpretation Code 70 - 105 mg/dL AO ADM SS HbA1c (Bld) [Mass fraction] 6.4 % Invalid Interpretation Code 4.3 - 6.4 % AO ADM SS Hematocrit (Bld) [Volume fraction] 37.5 % Invalid Interpretation Code 37.0 - 47.0 % AO Auto Heme SS Hemoglobin (Bld) [Mass/Vol] 12.6 G/dL Invalid Interpretation Code 12.0 - 16.0 G/dL AO Auto Heme SS Lymphocyte, Absolute 1.90 103/mcL Invalid Interpretation Code 0.77 - 3.85 10^3/mcL AO Auto Heme SS Lymphocytes/100 WBC (Bld) 43.4 % Invalid Interpretation Code 10.0 - 50.0 % AO Auto Heme SS MCH (RBC) [Entitic mass] 29.6 pg Invalid Interpretation Code 27.0 - 31.2 pg AO Auto Heme SS MCHC (RBC) [Mass/Vol] 33.7 G/dL Invalid Interpretation Code 33.0 - 37.0 G/dL AO Auto Heme SS MCV (RBC) [Entitic vol] 87.8 fL Invalid Interpretation Code 80.0 - 94.0 fL AO Auto Heme SS Monocyte, Absolute 0.30 103/mcL Invalid Interpretation Code 0.15 - 1.00 10^3/mcL AO Auto Heme SS Monocytes/100 WBC (Bld) 7.5 % Invalid Interpretation Code 1.7 - 13.0 % AO Auto Heme SS Neutrophil, Absolute 2.10 103/mcL Invalid Interpretation Code 2.85 - 6.16 10^3/mcL AO Auto Heme SS Neutrophils/100 WBC (Bld) 47.1 % Invalid Interpretation Code 37.0 - 80.0 % AO Auto Heme SS Platelet mean volume (Bld) [Entitic vol] 7.9 fL Invalid Interpretation Code 7.4 - 10.4 fL AO Auto Heme SS Platelets (Bld) [#/Vol] 189 103/mcL Invalid Interpretation Code 130 - 400 10^3/mcL AO Auto Heme SS Potassium [Moles/Vol] 4.3 mmol/L Invalid Interpretation Code 3.5 - 5.1 mmol/L AO ADM SS Protein [Mass/Vol] 6.7 G/dL Invalid Interpretation Code 6.4 - 8.2 G/dL AO ADM SS RBC (Bld) [#/Vol] 4.26 106/mcL Invalid Interpretation Code 4.20 - 5.40 10^6/mcL AO Auto Heme SS Sodium [Moles/Vol] 138 mmol/L Invalid Interpretation Code 136 - 145 mmol/L AO ADM SS Triglyceride [Mass/Vol] 90 mg/dL Invalid Interpretation Code 0 - 150 mg/dL AO ADM SS TSH Qn 1.65 m[IU]/L Invalid Interpretation Code 0.36 - 3.74 mcIU/mL AO ADM SS Urea nitrogen [Mass/Vol] 23 mg/dL Invalid Interpretation Code 7 - 18 mg/dL AO ADM SS Urea nitrogen/Creatinine [Mass ratio] 33 ratio Invalid Interpretation Code 7 - 27 ratio AO ADM SS Vit. D 25-Hydroxy 54.5 ng/mL Invalid Interpretation Code AO ADM SS WBC (Bld) [#/Vol] 4.40 103/mcL Invalid Interpretation Code 4.60 - 10.80 10^3/mcL AO Auto Heme SS LABORATORYOrdered By: SYSTEM SYSTEM on 10-19-2021 GFR 120 ml/min/1.73sqm Invalid Interpretation Code AO Chemistry S GFR Non- 99 ml/min/1.73sqm Invalid Interpretation Code AO Chemistry S Additional Injections: R kiley g A1 [facility] Vital Signs Date Time Vital Sign Value Performing Clinician Faci lity 02-06-2025 08:55-0400 Body height 162.6 cm Spencer Cordova MD Work Phone: [facility] 02-06-2025 08:55-0400 Body mass index (BMI) [Ratio] 26.43 kg/m2 Spencer Cordova MD Work Phone: [facility] 02-06-2025 08:55-0400 Body weight 69.85 kg Spencer Cordova MD Work Phone: [facility] 02-06-2025 08:55-0400 Diastolic blood pressure 58 mm[Hg] Spencer Cordova MD Work Phone: [facility] 02-06-2025 08:55-0400 Systolic blood pressure 104 mm[Hg] Spencer Cordova MD Work Phone: [facility] 11-20-2024 10:42-0400 Body height 160.02 cm Cindy Hernandez GREEN CHAINER-C Work Phone: [facility] 11-20-2024 10:42-0400 Body mass index (BMI) [Ratio] 28.5 kg/m2 Cindy Hernandez GREEN CHAINER-C Work Phone: [facility] 11-20-2024 10:42-0400 Body weight 73.14 kg Cindy Hernandez GREEN CHAINER-C Work Phone: [facility] 11-20-2024 10:42-0400 Diastolic blood pressure 80 mm[Hg] Cindy Hernandez GREEN CHAINER-C Work Phone: [facility] 11-20-2024 10:42-0400 Heart rate 83 /min Cindy Vargaspkins GREEN CHAINER-C Work Phone: [facility] 11-20-2024 10:42-0400 SaO2% (BldA) [Mass fraction] 96 % Cindy Hernandez GREEN CHAINER-C Work Phone: [facility] 11-20-2024 10:42-0400 Systolic blood pressure 115 mm[Hg] Cindy Live Oak GREEN CHAINER-C Work Phone: [facility] 11-18-2024 10:50-0400 Body mass index (BMI) [Ratio] 28.73 kg/m2 Spencer Cordova MD Work Phone: [facility] 11-18-2024 10:50-0400 Body weight 73.57 kg Spencer Cordova MD Work Phone: [facility] 11-18-2024 10:50-0400 Diastolic blood pressure 68 mm[Hg] Spencer Cordova MD Work Phone: [facility] 11-18-2024 10:50-0400 Systolic blood pressure 100 mm[Hg] Spencer Cordova MD Work Phone: [facility] 10-21-2024 09:52-0400 Body mass index (BMI) [Ratio] 29.33 kg/m2 Spencer Cordova MD Work Phone: [facility] 10-21-2024 09:52-0400 Body weight 75.12 kg Spencer Cordova MD Work Phone: [facility] 10-21-2024 09:52-0400 Diastolic blood pressure 60 mm[Hg] Spencer Cordova MD Work Phone: [facility] 10-21-2024 09:52-0400 Systolic blood pressure 104 mm[Hg] Spencer Cordova MD Work Phone: [facility] 10-16-2024 14:00-0400 Body temperature 97.8 [degF] Cindy [place] GREEN CHAINER-C Work Phone: [facility] 10-16-2024 14:00-0400 Diastolic blood pressure 78 mm[Hg] Cindy Hernandez GREEN CHAINER-C Work Phone: [facility] 10-16-2024 14:00-0400 Heart rate 81 /min Cindy Hernandez GREEN CHAINER-C Work Phone: [facility] 10-16-2024 14:00-0400 Respiratory rate 16 /min Cindy Hernandez GREEN CHAINER-C Work Phone: [facility] 10-16-2024 14:00-0400 SaO2% (BldA) [Mass fraction] 96 % Cindy Hernandez GREEN CHAINER-C Work Phone: [facility] 10-16-2024 14:00-0400 Systolic blood pressure 134 mm[Hg] Cindy Hernandez GREEN CHAINER-C Work Phone: [facility] 10-14-2024 19:07-0400 Body height 160.02 cm Cindy Hernandez GREEN CHAINER-C Work Phone: [facility] 10-14-2024 19:07-0400 Body mass index (BMI) [Ratio] 32.2 kg/m2 Cindy Hernandez GREEN CHAINER-C Work Phone: [facility] 10-14-2024 19:07-0400 Body weight 82.55 kg Cindy Hernandez GREEN CHAINER-C Work Phone: [facility] 10-10-2024 13:21-0400 Body mass index (BMI) [Ratio] 32.06 kg/m2 Edilma Goncalves MD Work Phone: [facility] 10-10-2024 13:21-0400 Body weight 82.1 kg Edilma Goncalves MD Work Phone: [facility] 10-10-2024 13:21-0400 Diastolic blood pressure 72 mm[Hg] Edilma Goncalves MD Work Phone: [facility] 10-10-2024 13:21-0400 Systolic blood pressure 107 mm[Hg] Edilma Goncalves MD Work Phone: [facility] 2024 11:38-0400 Diastolic blood pressure 66 mm[Hg] [facility] 2024 11:38-0400 Systolic blood pressure 112 mm[Hg] [facility] 10-03-2024 08:58-0500 Body mass index (BMI) [Ratio] 32.06 kg/m2 Spencer Cordova MD Work Phone: [facility] 10-03-2024 08:58-0500 Body weight 82.1 kg Spencer Cordova MD Work Phone: [facility] 10-03-2024 08:58-0500 Diastolic blood pressure 69 mm[Hg] Spencer Cordova MD Work Phone: [facility] 10-03-2024 08:58-0500 Systolic blood pressure 105 mm[Hg] Spencer Cordova MD Work Phone: [facility] 09-30-2024 10:05-0500 Diastolic blood pressure 74 mm[Hg] [facility] 09-30-2024 10:05-0500 Systolic blood pressure 113 mm[Hg] [facility] 09-26-2024 08:49-0500 Body mass index (BMI) [Ratio] 32.24 kg/m2 Spencer Cordova MD Work Phone: [facility] 09-26-2024 08:49-0500 Body weight 82.56 kg Spencer Cordova MD Work Phone: [facility] 09-26-2024 08:49-0500 Diastolic blood pressure 71 mm[Hg] Spencer Cordova MD Work Phone: [facility] 09-26-2024 08:49-0500 Systolic blood pressure 112 mm[Hg] Spencer Cordova MD Work Phone: [facility] 09-19-2024 13:29-0500 Body mass index (BMI) [Ratio] 32.06 kg/m2 Anna Bray MD Work Phone: [facility] 09-19-2024 13:29-0500 Body weight 82.1 kg Anna Bray MD Work Phone: [facility] 09-19-2024 13:29-0500 Diastolic blood pressure 71 mm[Hg] Anna Bray MD Work Phone: [facility] 09-19-2024 13:29-0500 Systolic blood pressure 111 mm[Hg] Anna Bray MD Work Phone: [facility] 09-16-2024 09:59-0500 Diastolic blood pressure 70 mm[Hg] [facility] 09-16-2024 09:59-0500 Systolic blood pressure 105 mm[Hg] [facility] 09-12-2024 14:06-0500 Body mass index (BMI) [Ratio] 32.4 kg/m2 Anna Bary MD Work Phone: [facility] 09-12-2024 14:06-0500 Body weight 82.96 kg Anna Bray MD Work Phone: [facility] 09-12-2024 14:06-0500 Diastolic blood pressure 64 mm[Hg] Anna Bray MD Work Phone: [facility] 09-12-2024 14:06-0500 Systolic blood pressure 118 mm[Hg] Anna Bray MD Work Phone: [facility] 09-09-2024 12:11-0500 Diastolic blood pressure 60 mm[Hg] [facility] 09-09-2024 12:11-0500 Systolic blood pressure 102 mm[Hg] [facility] 09-08-2024 09:55-0500 Body mass index (BMI) [Ratio] 32.3 kg/m2 Cindy Hernandez NP-C Work Phone: [facility] 09-08-2024 09:55-0500 Body weight 82.72 kg Cindy Hernandez GREEN CHAINER-C Work Phone: [facility] 09-08-2024 09:55-0500 Diastolic blood pressure 73 mm[Hg] Cindy Hernandez GREEN CHAINER-C Work Phone: [facility] 09-08-2024 09:55-0500 Heart rate 72 /min Cindy Hernandez GREEN CHAINER-C Work Phone: [facility] 09-08-2024 09:55-0500 SaO2% (BldA) [Mass fraction] 99 % Cindy Hernandez GREEN CHAINER-C Work Phone: [facility] 09-08-2024 09:55-0500 Systolic blood pressure 110 mm[Hg] Cindy Hernandez GREEN CHAINER-C Work Phone: [facility] 09-02-2024 09:46-0500 Diastolic blood pressure 72 mm[Hg] [facility] 09-02-2024 09:46-0500 Systolic blood pressure 111 mm[Hg] [facility] 08-29-2024 10:31-0500 Body mass index (BMI) [Ratio] 31.18 kg/m2 Giuseppe Galdamez MD Work Phone: [facility] 08-29-2024 10:31-0500 Body weight 79.83 kg Giuseppe Galdamez MD Work Phone: [facility] 08-29-2024 10:31-0500 Diastolic blood pressure 68 mm[Hg] Giuseppe Galdamez MD Work Phone: [facility] 08-29-2024 10:31-0500 Systolic blood pressure 108 mm[Hg] Giuseppe Galdamez MD Work Phone: [facility] 07-31-2024 15:27-0500 Body mass index (BMI) [Ratio] 31.71 kg/m2 Spencer Cordova MD Work Phone: [facility] 07-31-2024 15:27-0500 Body weight 81.19 kg Spencer Cordova MD Work Phone: [facility] 07-31-2024 15:27-0500 Diastolic blood pressure 68 mm[Hg] Spencer Cordova MD Work Phone: [facility] 07-31-2024 15:27-0500 Systolic blood pressure 108 mm[Hg] Spencer Cordova MD Work Phone: [facility] 07-14-2024 11:35-0500 Body mass index (BMI) [Ratio] 31.4 kg/m2 Cindy Hernandez GREEN CHAINER-C Work Phone: [facility] 07-14-2024 11:35-0500 Body weight 80.34 kg Cindy Hernandez GREEN CHAINER-C Work Phone: [facility] 07-14-2024 11:35-0500 Diastolic blood pressure 70 mm[Hg] Cindy Hernandez GREEN CHAINER-C Work Phone: [facility] 07-14-2024 11:35-0500 Heart rate 78 /min Cindy Hernandez GREEN CHAINER-C Work Phone: [facility] 07-14-2024 11:35-0500 SaO2% (BldA) [Mass fraction] 98 % Cindy Hernandez GREEN CHAINER-C Work Phone: [facility] 07-14-2024 11:35-0500 Systolic blood pressure 105 mm[Hg] Cindy Hernandez GREEN CHAINER-C Work Phone: [facility] 07-03-2024 10:48-0500 Body mass index (BMI) [Ratio] 31 kg/m2 Spencer Cordova MD Work Phone: [facility] 07-03-2024 10:48-0500 Body weight 79.38 kg Spencer Cordova MD Work Phone: [facility] 07-03-2024 10:48-0500 Diastolic blood pressure 64 mm[Hg] Spencer Cordova MD Work Phone: [facility] 07-03-2024 10:48-0500 Systolic blood pressure 100 mm[Hg] Spencer Cordova MD Work Phone: [facility] 06-03-2024 10:18-0500 Body mass index (BMI) [Ratio] 30.75 kg/m2 Miah Connors MD Work Phone: [facility] 06-03-2024 10:18-0500 Body weight 78.74 kg Miah Connors MD Work Phone: [facility] 06-03-2024 10:18-0500 Diastolic blood pressure 78 mm[Hg] Miah Connors MD Work Phone: [facility] 06-03-2024 10:18-0500 Systolic blood pressure 110 mm[Hg] Miah Connors MD Work Phone: [facility] 04-22-2024 08:04-0400 Body mass index (BMI) [Ratio] 28.77 kg/m2 Miah Connors MD Work Phone: [facility] 04-22-2024 08:04-0400 Body weight 73.66 kg Miah Connors MD Work Phone: [facility] 04-22-2024 08:04-0400 Diastolic blood pressure 70 mm[Hg] Miah Connors MD Work Phone: [facility] 04-22-2024 08:04-0400 Systolic blood pressure 110 mm[Hg] Miah Connors MD Work Phone: [facility] 03-17-2024 09:00-0400 Body height 160 cm Bambi Gloria SCIENTIFIC ASSOCIATE.CNM Work Phone: [facility] 03-17-2024 09:00-0400 Body mass index (BMI) [Ratio] 27.1 kg/m2 Bambi Gloria SCIENTIFIC ASSOCIATE.CNM Work Phone: [facility] 03-17-2024 09:00-0400 Body weight 69.4 kg Bambi Gloria SCIENTIFIC ASSOCIATE.CNM Work Phone: [facility] 03-17-2024 09:00-0400 Diastolic blood pressure 62 mm[Hg] Bambi Gloria SCIENTIFIC ASSOCIATE.CNM Work Phone: [facility] 03-17-2024 09:00-0400 Systolic blood pressure 98 mm[Hg] Bambi Gloria SCIENTIFIC ASSOCIATE.CNM Work Phone: [facility] 12-03-2023 10:20-0400 Body height 160.02 cm TOSHIA Hernandez NP Work Phone: [facility] 12-03-2023 10:20-0400 Body mass index (BMI) [Ratio] 23.6 kg/m2 GREEN CHAINER-C Cindy Vargaspkins GREEN CHAINER Work Phone: [facility] 12-03-2023 10:20-0400 Body temperature 99.8 [degF] GREEN CHAINER-C Cindy Vargaspkins GREEN CHAINER Work Phone: [facility] 12-03-2023 10:20-0400 Body weight 60.32 kg GREEN CHAINER-C Cindy [place] GREEN CHAINER Work Phone: [facility] 12-03-2023 10:20-0400 Diastolic blood pressure 88 mm[Hg] GREEN CHAINER-C Cindy Hernandez GREEN CHAINER Work Phone: [facility] 12-03-2023 10:20-0400 Heart rate 81 /min GREEN CHAINER-C Cindy David GREEN CHAINER Work Phone: [facility] 12-03-2023 10:20-0400 SaO2% (BldA) [Mass fraction] 98 % GREEN CHAINER-C Cindy Vargaspkins GREEN CHAINER Work Phone: [facility] 12-03-2023 10:20-0400 Systolic blood pressure 121 mm[Hg] GREEN CHAINER-C Cindy Vargaspkins GREEN CHAINER Work Phone: [facility] 11-29-2023 14:47-0400 Body temperature 97.4 [degF] GREEN CHAINER-C Cindy [place] GREEN CHAINER Work Phone: [facility] 11-29-2023 14:47-0400 Diastolic blood pressure 78 mm[Hg] GREEN CHAINER-C Cindy [place] GREEN CHAINER Work Phone: [facility] 11-29-2023 14:47-0400 Heart rate 71 /min GREEN CHAINER-C Cindy [place] GREEN CHAINER Work Phone: [facility] 11-29-2023 14:47-0400 Respiratory rate 16 /min GREEN CHAINER-C Cindy David GREEN CHAINER Work Phone: [facility] 11-29-2023 14:47-0400 SaO2% (BldA) [Mass fraction] 97 % GREEN CHAINER-C Cindy Vargaspkins GREEN CHAINER Work Phone: [facility] 11-29-2023 14:47-0400 Systolic blood pressure 116 mm[Hg] GREEN CHAINER-C Cindy Vargaspkins GREEN CHAINER Work Phone: [facility] 11-28-2023 14:52-0400 Body height 160.02 cm GREEN CHAINER-C Cindy Vargaspkins GREEN CHAINER Work Phone: [facility] 11-28-2023 14:52-0400 Body weight 60.1 kg GREEN CHAINER-C Cindy Vargaspkins GREEN CHAINER Work Phone: [facility] 11-28-2023 11:18-0400 Body mass index (BMI) [Ratio] 23.4 kg/m2 GREEN CHAINER-C Cindy Vargaspkins GREEN CHAINER Work Phone: [facility] 11-28-2023 11:01-0400 Body temperature 97.7 [degF] [facility] 11-28-2023 11:01-0400 Diastolic blood pressure 62 mm[Hg] [facility] 11-28-2023 11:01-0400 Heart rate 90 /min [facility] 11-28-2023 11:01-0400 Respiratory rate 16 /min [facility] 11-28-2023 11:01-0400 SaO2% (BldA) [Mass fraction] 96 % [facility] 11-28-2023 11:01-0400 Systolic blood pressure 98 mm[Hg] [facility] 11-28-2023 08:02-0400 Body height 160.02 cm [facility] 11-28-2023 08:02-0400 Body mass index (BMI) [Ratio] 22.9 kg/m2 [facility] 11-28-2023 08:02-0400 Body weight 58.76 kg [facility] 11-14-2023 23:19-0400 Body temperature 97.2 [degF] [facility] 11-14-2023 23:19-0400 Diastolic blood pressure 64 mm[Hg] [facility] 11-14-2023 23:19-0400 Heart rate 72 /min [facility] 11-14-2023 23:19-0400 Respiratory rate 14 /min [facility] 11-14-2023 23:19-0400 SaO2% (BldA) [Mass fraction] 98 % [facility] 11-14-2023 23:19-0400 Systolic blood pressure 120 mm[Hg] [facility] 11-14-2023 20:13-0400 Body height 160.02 cm [facility] 11-14-2023 20:13-0400 Body mass index (BMI) [Ratio] 23.8 kg/m2 [facility] 11-14-2023 20:13-0400 Body weight 61.2 kg [facility] 04-18-2023 07:19-0400 Body temperature 97.3 [degF] Dionna Athy PA-C Work Phone: [facility] 04-18-2023 07:19-0400 Body weight 56.61 kg Dionna Athy PA-C Work Phone: [facility] 04-18-2023 07:19-0400 Diastolic blood pressure 64 mm[Hg] Dionna Athy PA-C Work Phone: [facility] 04-18-2023 07:19-0400 Heart rate 60 /min Dionna Athy PA-C Work Phone: [facility] 04-18-2023 07:19-0400 Respiratory rate 18 /min Dionna Athy PA-C Work Phone: [facility] 04-18-2023 07:19-0400 SaO2% (BldA) [Mass fraction] 100 % Dionna Athy PA-C Work Phone: [facility] 04-18-2023 07:19-0400 Systolic blood pressure 102 mm[Hg] Dionna Athy PA-C Work Phone: [facility] 10-07-2022 10:00-0500 Body temperature 98.6 [degF] GREEN CHAINER-C Cindy Hernandez NP Work Phone: [facility] 10-07-2022 10:00-0500 Diastolic blood pressure 72 mm[Hg] GREEN CHAINER-C Cindy Vargaspkins GREEN CHAINER Work Phone: [facility] 10-07-2022 10:00-0500 Heart rate 78 /min GREEN CHAINER-C Cindy Hernandez GREEN CHAINER Work Phone: [facility] 10-07-2022 10:00-0500 Respiratory rate 16 /min GREEN CHAINER-C Cindy Hernandez GREEN CHAINER Work Phone: [facility] 10-07-2022 10:00-0500 SaO2% (BldA) [Mass fraction] 96 % GREEN CHAINER-C Cindy Vargaspkins GREEN CHAINER Work Phone: [facility] 10-07-2022 10:00-0500 Systolic blood pressure 118 mm[Hg] GREEN CHAINER-C Cindy Hernandez GREEN CHAINER Work Phone: [facility] 10-07-2022 06:00-0500 Body mass index (BMI) [Ratio] 21.5 kg/m2 GREEN CHAINER-C Cindy Hernandez GREEN CHAINER Work Phone: [facility] 10-07-2022 06:00-0500 Body weight 55.1 kg GREEN CHAINER-C Cindy Hernandez GREEN CHAINER Work Phone: [facility] 2022 22:34-0500 Body height 160.02 cm GREEN CHAINER-C Cindy Hernandez GREEN CHAINER Work Phone: [facility] 2022 22:12-0500 Body temperature 98.3 [degF] PA Leandro Rodriguez PA Work Phone: [facility] 2022 22:12-0500 Diastolic blood pressure 89 mm[Hg] PA Leandro Rodriguez PA Work Phone: [facility] 2022 22:12-0500 Heart rate 80 /min PA Leandro Rodriguez PA Work Phone: [facility] 2022 22:12-0500 Respiratory rate 18 /min PA Leandro Rodriguez PA Work Phone: [facility] 2022 22:12-0500 SaO2% (BldA) [Mass fraction] 95 % PA Leandro Rodriguez PA Work Phone: [facility] 2022 22:12-0500 Systolic blood pressure 123 mm[Hg] PA Leandro Rodriguez PA Work Phone: [facility] 2022 19:54-0500 Body height 160.02 cm PA Leandro Rodriguez PA Work Phone: [facility] 2022 19:54-0500 Body mass index (BMI) [Ratio] 21.7 kg/m2 PA Leandro Rodriguez PA Work Phone: [facility] 2022 19:54-0500 Body weight 55.79 kg PA Leandro Rodriguez PA Work Phone: [facility] 10-04-2022 07:25-0500 Body mass index (BMI) [Ratio] 21.2 kg/m2 PA Leandro Rodriguez PA Work Phone: [facility] 10-04-2022 07:25-0500 Body temperature 98.1 [degF] PA Leandro Rodriguez PA Work Phone: [facility] 10-04-2022 07:25-0500 Body weight 54.43 kg PA Leandro Rodriguez PA Work Phone: [facility] 10-04-2022 07:25-0500 Diastolic blood pressure 66 mm[Hg] PA Leandro Rodriguez PA Work Phone: [facility] 10-04-2022 07:25-0500 Heart rate 116 /min PA Leandro Rodriguez PA Work Phone: [facility] 10-04-2022 07:25-0500 Respiratory rate 14 /min PA Leandro Rodriguez PA Work Phone: [facility] 10-04-2022 07:25-0500 SaO2% (BldA) [Mass fraction] 99 % PA Leandro Wyles PA Work Phone: [facility] 10-04-2022 07:25-0500 Systolic blood pressure 112 mm[Hg] ERNST DUKES Work Phone: [facility] Encounters Encounter Date Encounter Type Care Provider Facility Start: 06-04-2025 End: 06-04-2025 ambulatory Cindy Hernandez GREEN CHAINER Facility:[facility] Start: 02-25-2025 End: 02-25-2025 ambulatory Cindy Hernandez GREEN CHAINER-C Work Phone: -Laboratory Start: 02-25-2025 End: 02-25-2025 Patient encounter procedure Jayne Ferreira GREEN CHAINER-C -Laboratory Work Phone: Start: 02-25-2025 End: 02-25-2025 ambulatory Cindy Hernandez GREEN CHAINER Facility:[facility] Start: 02-06-2025 End: 02-06-2025 Patient encounter procedure Spencer Cordova MD Work Phone: OB/Gynecology Comment on above: Encounter for gyneco logical examination (general) (routine) without abnormal findings (Primary Dx); Encounter for surveillance of contraceptive pills Start: 02-06-2025 End: 02-06-2025 Patient encounter status Spencer Cordova MD Work Phone: [facility] Start: 02-06-2025 End: 02-06-2025 ambulatory CINDY HERNANDEZ Facility:[facility] Start: 02-06-2025 Encounter for gynecological examination (general) (routine) without abnormal findings SPENCER CORDOVA [facility] Start: 11-20-2024 End: 11-20-[address] Isabel Zuniga MD -[facility] Work Phone: Start: 11-20-2024 End: 11-20-2024 ambulatory Cindy Hernandez GREEN CHAINER [place] [place]: 11-18-2024 End: 11-18-2024 Patient encounter procedure Spencer Cordova MD Work Phone: OB/Gynecology Comment on above: Counseling for control, oral contraceptives (Primary Dx) Start: 11-18-2024 End: 11-18-2024 ambulatory CINDY HERNANDEZ Facility:[facility] Start: 10-21-2024 End: 10-21-2024 ambulatory [facility] Facility:[facility] Start: 10-21-2024 End: 10-21-2024 Patient encounter procedure Spencer Cordova MD Work Phone: OB/Gynecology Comment on above: care and examination immediately after delivery (Primary Dx) Start: 10-15-2024 End: 10-15-2024 ambulatory Edilma Goncalves MD Work Phone: OB/Gynecology Comment on above: Ob Delivery Note Start: 10-14-2024 End: 10-16-2024 Evaluation and management of inpatient Dr. Edilma Goncalves MD -[facility] Work Phone: Start: 10-10-2024 End: 10-10-2024 Patient encounter procedure Edilma Goncalves MD Work Phone: OB/Gynecology Comment on above: Supervision of high risk in third trimester (Primary Dx); Preexisting diabetes complicating , antepartum; Hypothyroidism, unspecified type; 37 weeks gestation of Start: 10-10-2024 End: 10-10-2024 ambulatory CINDY HERNANDEZ Facility:[facility] Start: 2024 End: 2024 [facility] Facility:[facility] Start: 2024 End: 2024 Patient encounter procedure Whi Tech 1 Contact Lens Inspector [facility] Comment on above: Preexisting diabetes complicating , antepartum (Primary Dx); 37 weeks gestation of Start: 10-03-2024 End: 10-03-2024 [facility] CINDY HENRYKINS Facility:[facility] Start: 10-03-2024 End: 10-03-2024 Patient encounter procedure Spencer Cordova MD Work Phone: OB/Gynecology Comment on above: 36 weeks gestation o f (Primary Dx); Insulin controlled gestational diabetes mellitus (GDM) in third trimester; Hypothyroidism, unspecified type; Antepartum anemia complicating in third trimester Start: 09-30-2024 End: 09-30-2024 ambulatory CINDY HERNANDEZ Facility:[facility] Start: 09-30-2024 End: 09-30-2024 Patient encounter procedure Whi Tech 2 Contact Lens Inspector [facility] Comment on above: Preexisting diabetes complicating , antepartum (Primary Dx); 36 weeks gestation of Start: 09-29-2024 End: 11-29-2024 Follow-up encounter Edilma Goncalves MD Work Phone: OB/Gynecology Start: 09-26-2024 End: 09-26-2024 ambulatory CINDY D DAVID Facility:[facility] Start: 09-26-2024 End: 09-26-2024 Patient encounter procedure Spencer Cordova MD Work Phone: OB/Gynecology Comment on above: Supervision of high risk in third trimester (Primary Dx); 35 weeks gestation of ; Preexisting diabetes complicating , antepartum; Anemia complicating , third trimester Start: 09-23-2024 End: 09-23-2024 ambulatory CINDY D DAVID Facility:[facility] Start: 09-23-2024 End: 09-23-2024 Patient encounter procedure Whi Tech 1 Contact Lens Inspector [facility] Comment on above: Encounter for ultras ound to check growth (Primary Dx); Preexisting diabetes complicating , antepartum; 35 weeks gestation of Start: 09-19-2024 End: 09-19-2024 Patient encounter procedure Anna Bray MD Work Phone: OB/Gynecology Comment on above: Supervision of high risk in third trimester (Primary Dx); Preexisting diabetes complicating , antepartum; 34 weeks gestation of Start: 09-19-2024 End: 09-19-2024 ambulatory CINDY D DAVID Facility:[facility] Start: 09-16-2024 End: 09-16-2024 ambulatory CINDY D DAVID Facility:[facility] Start: 09-16-2024 End: 09-16-2024 Patient encounter procedure Whi Tech 2 Contact Lens Inspector [facility] Comment on above: Preexisting diabetes complicating , antepartum (Primary Dx); 34 weeks gestation of Start: 09-12-2024 End: 09-12-2024 Patient encounter procedure Anna Bray MD Work Phone: OB/Gynecology Comment on above: Supervision of high risk in second trimester (Primary Dx); Preexisting diabetes complicating , antepartum; 33 weeks gestation of Start: 09-12-2024 End: 09-12-2024 ambulatory CINDY HERNANDEZ Facility:[facility] Start: 09-10-2024 End: 11-10-2024 Follow-up encounter Giuseppe Galdamez MD Work Phone: OB/Gynecology Start: 09-09-2024 End: 09-09-2024 ambulatory CINDY HERNANDEZ Facility:[facility] Start: 09-09-2024 End: 09-09-2024 Patient encounter procedure Whi Tech 1 Contact Lens Inspector [facility] Comment on above: Preexisting diabetes complicating , antepartum (Primary Dx); 33 weeks gestation of Start: 09-08-2024 End: 09-08-[address] Isabel Zuniga MD -[facility] Work Phone: Start: 09-08-2024 End: 09-08-2024 ambulatory Cindy Hernandez GREEN CHAINER [place] [place] Start: 09-08-2024 End: 09-08-2024 ambulatory Cindy Hernandez GREEN CHAINER Facility:[facility] Start: 09-02-2024 End: 09-02-2024 ambulatory CINDY HERNANDEZ Facility:[facility] Start: 09-02-2024 End: 09-02-2024 Patient encounter procedure Whi Tech 2 Contact Lens Inspector [facility] Comment on above: Preexisting diabetes complicating , antepartum (Primary Dx); 32 weeks gestation of Start: 09-01-2024 End: 09-09-2024 ambulatory Spencer Cordova MD Work Phone: OB/Gynecology Comment on above: Attending physician statement needs completed for my maternity leave Start: 08-29-2024 End: 08-29-2024 ambulatory CINDY HERNANDEZ Facility:[facility] Start: 08-29-2024 End: 08-29-2024 Patient encounter procedure Giuseppe Galdamez MD Work Phone: OB/Gynecology Comment on above: Supervision of high risk in second trimester (Primary Dx); Preexisting diabetes complicating , antepartum; 31 weeks gestation of Preexisting diabetes complicating , antepartum (Primary Dx); 31 weeks gestation of Start: 08-01-2024 End: 08-04-2024 ambulatory Spencer Cordova MD Work Phone: OB/Gynecology Comment on above: Anemic Start: 07-31-2024 End: 07-31-2024 Patient encounter procedure Spencer Cordova MD Work Phone: OB/Gynecology Comment on above: Preexisting diabetes complicating , antepartum (Primary Dx); Supervision of high risk in second trimester; 27 weeks gestation of ; Need for vaccination Preexisting diabetes complicating , antepartum (Primary Dx); Supervision of high risk in second trimester; 27 weeks gestation of Start: 07-31-2024 End: 07-31-2024 ambulatory CINDY HERNANDEZ Facility:[facility] Start: 07-14-2024 End: 07-14-[address] Isabel Zuniga MD -Laboratory Work Phone: Start: 07-14-2024 End: 07-14-[address] Isabel Zuniga MD -[facility] Work Phone: Start: 07-14-2024 End: 07-14-2024 ambulatory Cindy Hernandez [place] [place] Start: 07-14-2024 End: 07-14-2024 ambulatory Isabel Zuniga Facility:[facility] Start: 07-08-2024 End: 07-08-2024 Patient encounter procedure Mary Giordano MD Work Phone: Pediatric Cardiology Start: 07-08-2024 End: 07-08-2024 ambulatory MARY GIORDANO Facility:[facility] Start: 07-03-2024 End: 07-03-2024 ambulatory CINDY HERNANDEZ Facility:[facility] Start: 07-03-2024 End: 07-03-2024 Patient encounter procedure Spencer Cordova MD Work Phone: OB/Gynecology Comment on above: Supervision of high risk in second trimester (Primary Dx); Preexisting diabetes complicating , antepartum; 23 weeks gestation of ; Need for influenza vaccination Encounter for follow -up ultrasound of anatomy (Primary Dx); Preexisting diabetes complicating , antepartum; 23 weeks gestation of Start: 06-13-2024 End: 06-13-2024 ambulatory CINDY HERNANDEZ Facility:[facility] Start: 06-05-2024 End: 06-05-2024 ambulatory Bambi Gloria APRN.CNM Work Phone: OB/Gynecology Comment on above: Medication for heada ches Start: 06-03-2024 End: 06-09-2024 Telephone encounter Bambi Gloria APRN.CNCatherine Work Phone: OB/Gynecology Comment on above: Orders Start: 06-03-2024 End: 06-03-2024 Patient encounter procedure Spencer Cordova MD Work Phone: OB/Gynecology Comment on above: 19 weeks gestation o f (Primary Dx); Preexisting diabetes complicating , antepartum; Supervision of high risk in first trimester Start: 06-03-2024 End: 06-03-2024 ambulatory CINDY HERNANDEZ Facility:[facility] Start: 06-03-2024 End: 06-03-2024 [facility] CINDY HENRYKINS Facility:[facility] Start: 06-03-2024 End: 06-03-2024 Patient encounter procedure Whi Tech 1 Contact Lens Inspector [facility] Comment on above: Encounter for anatomic survey (Primary Dx); 19 weeks gestation of ; Pre-existing type 1 diabetes mellitus in in first trimester Pre-existing type 1 diabetes mellitus in in second trimester (Primary Dx); Mixed hyperlipidemia; History of thyroidectomy, total; Generalized anxiety disorder; History of sleep apnea Start: 04-23-2024 End: 04-23-2024 ambulatory CINDY HERNANDEZ Facility:[facility] Start: 04-22-2024 End: 04-22-2024 [facility] CINDY HENRYKINS Facility:[facility] Start: 04-22-2024 End: 04-22-2024 Patient encounter procedure Spencer Cordova MD Work Phone: OB/Gynecology Comment on above: 13 weeks gestation o f (Primary Dx); Preexisting diabetes complicating , antepartum; Supervision of high risk in first trimester Pre-existing type 1 diabetes mellitus in in first trimester (Primary Dx); History of thyroidectomy, total; History of sleep apnea; Generalized anxiety disorder; Mixed hyperlipidemia; PFO (patent foramen ovale); 13 weeks gestation of ; Supervision of high risk in first trimester; Encounter for screening for malformation using ultrasound Start: 03-27-2024 End: 03-27-2024 ambulatory Bambi Gloria APRN.CNM Work Phone: OB/Gynecology Comment on above: Bleeding Start: 03-19-2024 End: 03-19-2024 ambulatory CINDY HERNANDEZ Facility:[facility] Start: 03-18-2024 End: 03-18-2024 ambulatory Bambi Gloria APRN.CNM Work Phone: OB/Gynecology Comment on above: Question about lab w ork tomorrow & hair dye Start: 03-18-2024 End: 03-18-2024 Documentation procedure Bambi Gloria APRN.CNM Work Phone: OB/Gynecology Comment on above: Need documentation s ent to [facility] for the sleep study Start: 03-17-2024 End: 03-17-2024 ambulatory CINDY HERNANDEZ Facility:[facility] Start: 03-17-2024 End: 03-17-2024 Patient encounter procedure Bambi Gloria APRN.CNM Work Phone: OB/Gynecology Comment on above: Supervision of high risk in first trimester (Primary Dx); Pre-existing type 1 diabetes mellitus in in first trimester; Mixed hyperlipidemia; Generalized anxiety disorder; History of Graves' disease; History of thyroidectomy, total; History of PCOS; History of sleep apnea; PFO (patent foramen ovale); Rosacea; Screening for cervical cancer; Screening for human papillomavirus (HPV); with uncertain date of last menstrual period in first trimester, antepartum Start: 12-03-2023 End: 12-03-2023 ambulatory GREEN CHAINERAbeC Cindy Hernandez GREEN CHAINER Work Phone: [facility] Work Phone: Start: 12-03-2023 End: 12-03-2023 Patient encounter procedure GREEN CHAINER-C Cnidy Hernandez GREEN CHAINER Work Phone: [facility]-Laboratory Work Phone: Start: 12-03-2023 End: 12-03-2023 Patient encounter procedure GREEN CHAINER-C Cindy Hernandez GREEN CHAINER Work Phone: [facility] Endocr[facility] Work Phone: Start: 11-29-2023 Non-patient / Non-visit GREEN CHAINER-C Eddi Hernandez GREEN CHAINER Work Phone: [facility] Work Phone: Start: 11-28-2023 End: 11-29-2023 Evaluation and management of inpatient [facility]-Intensive Care Unit Work Phone: Start: 11-14-2023 End: 11-14-2023 Emergency department patient visit [facility]-Emergency Department Work Phone: Start: 11-13-2023 End: 11-13-2023 ambulatory INDIRA FERNANDO Facility:[facility] Start: 11-13-2023 End: 11-13-2023 Patient encounter procedure Indira Fernando PA-C Work Phone: [facility] Comment on above: Trigger middle finge r of right hand (Primary Dx) Start: 11-01-2023 End: 11-06-2023 ambulatory CINDY HERNANDEZ Facility:[facility] Start: 11-01-2023 End: 11-05-2023 Outreach Lab CINDY HERNANDEZ SCIENTIFIC ASSOCIATE - SALVAGE ENGINEERING TECHNICIAN [facility] Start: 10-24-2023 End: 10-24-2023 ambulatory [facility] Work Phone: Start: 10-24-2023 End: 10-24-2023 Patient encounter procedure [facility]-Laboratory Work Phone: Start: 04-18-2023 End: 04-18-2023 Patient encounter procedure Dionna R Athy PA-C Work Phone: [facility] Comment on above: Acute URI (Primary D x) Start: 03-05-2023 End: 03-05-2023 ambulatory [facility] Work Phone: Start: 03-05-2023 End: 03-05-2023 Patient encounter procedure [facility]-Laboratory Work Phone: Start: 10-24-2022 End: 10-24-2022 Patient encounter procedure CINDY HERNANDEZ SCIENTIFIC ASSOCIATE - SALVAGE ENGINEERING TECHNICIAN [facility] Start: 10-14-2022 End: 10-14-2022 ambulatory GREEN CHAINER-C Cindy Hernandez GREEN CHAINER Work Phone: [facility] Work Phone: Start: 10-14-2022 End: 10-14-2022 Patient encounter procedure GREEN CHAINER-C Cindy Hernandez GREEN CHAINER Work Phone: [facility]-Laboratory Start: 10-07-2022 Non-patient / Non-visit GREEN CHAINER-C Eddi Hernandez GREEN CHAINER Work Phone: [facility] Start: 10-07-2022 Non-patient / Non-visit GREEN CHAINER-C Eddi Hernandez GREEN CHAINER Work Phone: [facility] Start: 2022 Non-patient / Non-visit GREEN CHAINER-C Eddi Hernandez GREEN CHAINER Work Phone: [facility] Start: 2022 End: 10-07-2022 Evaluation and management of inpatient PA Leandro Rodriguez PA Work Phone: [facility]-Progressive Care Unit Start: 2022 End: 10-07-2022 observation encounter GREEN CHAINER-C Cindy Hernandez GREEN CHAINER Work Phone: [facility] Work Phone: Start: 10-04-2022 End: 10-04-2022 Patient encounter procedure ERNST DUKES Work Phone: [facility] Start: 09-19-2022 End: 09-19-2022 Patient encounter procedure CINDY Guthrie DAVID SCIENTIFIC ASSOCIATE - SALVAGE ENGINEERING TECHNICIAN [facility] Start: 11-09-2021 End: 11-09-2021 Patient encounter procedure [facility]-Laboratory, Specimen Start: 10-19-2021 End: 10-19-2021 Patient encounter procedure CINDY Guthrie DAVID SCIENTIFIC ASSOCIATE - SALVAGE ENGINEERING TECHNICIAN [facility] Procedures Date Procedure Procedure Detail Performing Clinician Start: 02-25-2025 Vitamin D, 25-hydrox y measurement Cindy Hernandez GREEN CHAINER-C Work Phone: Comment on above: Vitamin D StatusDefi ciency: <20 ng/mL (50nmol/L)Insufficiency: 20-30 ng/mL (50-75 nmol/L)Sufficiency: 30-100 ng/mL (75-250 nmol/L)Toxicity: >100 ng/mL (>250 nmol/L) Start: 2024 biophysical pr ofile non-stress testing Giuseppe Galdamez MD Work Phone: Start: 10-03-2024 Urnls dip stick/tabl et rgnt non-auto w/o micrscp Spencer Cordova MD Work Phone: Start: 09-30-2024 biophysical pr ofile non-stress testing Giuseppe Galdamez MD Work Phone: Start: 09-26-2024 Urnls dip stick/tabl et rgnt non-auto w/o micrscp Spencer Cordova MD Work Phone: Start: 09-23-2024 biophysical pr ofile non-stress testing Giuseppe Galdamez MD Work Phone: Start: 09-19-2024 Urnls dip stick/tabl et rgnt non-auto w/o micrscp Anna Bray MD Work Phone: Start: 09-16-2024 biophysical pr ofile non-stress testing Giuseppe Galdamez MD Work Phone: Start: 09-12-2024 Urnls dip stick/tabl et rgnt non-auto w/o micrscp Anna Bray MD Work Phone: Start: 09-09-2024 biophysical pr ofile non-stress testing Giuseppe Galdamez MD Work Phone: Start: 09-02-2024 biophysical pr ofile non-stress testing Giuseppe Galdamez MD Work Phone: Start: 08-29-2024 Urnls dip stick/tabl et rgnt non-auto w/o micrscp Giuseppe Galdamez MD Work Phone: Start: 08-29-2024 Us preg uterus after 1st trimest 07/30 gestation Spencer Cordova MD Work Phone: Start: 07-31-2024 Us preg uterus after 1st trimest 07/30 gestation Spencer Cordova MD Work Phone: Start: 07-03-2024 Urnls dip stick/tabl et rgnt non-auto w/o micrscp Spencer Cordova MD Work Phone: Start: 07-03-2024 Us preg uterus after 1st trimest 07/30 gestation Spencer Cordova MD Work Phone: Start: 06-03-2024 Urnls dip stick/tabl et rgnt non-auto w/o micrscp Spencer Cordova MD Work Phone: Start: 06-03-2024 Us preg uterus after 1st trimest 07/30 gestation Bambi Gloria APRN.CNM Work Phone: Start: 04-22-2024 Urnls dip stick/tabl et rgnt non-auto w/o micrscp Spencer Cordova MD Work Phone: Start: 09-24-2024 Us nuchal translucency 1st gestation Bambi Faizan BOWSER.CNM Work Phone: Start: 03-19-2024 Antibody screen CINDY HERNANDEZ Comment on above: Order Comment: Speci men Type: BLOOD SPECIMENOrdering Facility: [facility] Address: [address] [place] [address] Performed By: #### T SPN ####CC MAIN BLOOD BANKCLIA [id number] [facility] [id number] [place] Start: 03-17-2024 Cytp c/v auto thin l yr prepj scr mnl rescr phys Bambi Gloria SCIENTIFIC ASSOCIATE.CNM Work Phone: Start: 03-17-2024 Iadna human papillom avirus high-risk types Bambi Gloria SCIENTIFIC ASSOCIATE.CNM Work Phone: Start: 03-17-2024 BACTERIAL VAGINOSIS NAAT Bambi Faizan GARCIAN.CNM Work Phone: Start: 03-17-2024 Iadna chlamydia trachomatis amplified probe tq Bambi Gloria SCIENTIFIC ASSOCIATE.CNM Work Phone: Start: 03-17-2024 Us uterus l imited 1/> fetuses Bambi Gloria SCIENTIFIC ASSOCIATE.CNM Work Phone: Start: 11-28-2023 SARS-CoV-2, Influenz a & RSV (PCR) Start: 11-13-2023 Injection 1 tendon sheath/ligament aponeurosis Indira Fernando PA-C Work Phone: Start: 10-07-2022 MRI of brain without contrast GREEN CHAINER-C Cindy Hernandez GREEN CHAINER Work Phone: Start: 2022 Plain chest X-ray ERNST Guzman Work Phone: Start: 2022 CT angiography of he ad and neck ERNST DUKES Work Phone: Start: 2022 CT of head without contrast ERNST DUKES Work Phone: Start: 01-27-2017 Total thyroidectomy JORGE HERNANDEZ SCIENTIFIC ASSOCIATE - SALVAGE ENGINEERING TECHNICIAN History of thyroidectomy Hx of thyroidect jimbo Comment on above: 02/15/2018 Laboratory test resu lt abnormal Abnormal laboratory test Plan of Treatment Date Care Activity Detail Author Start: 07-31-2034 Urine microalbumin profile DTaP,Tdap,Td Vaccine (5 - Td or Tdap) [facility]. [facility] Start: 03-17-2029 Screening for malign ant neoplasm of cervix Cervical Cancer Screening [facility] Start: 07-30-[address] [facility] Start: 02-09-2026 End: 02-09-2026 Patient encounter procedure 02/09/2026 9:20 AM EDT Office Visit OB/Gynecology [address] [place] [address] Spencer Cordova MD [address] [place] [id number] Annual OB/Gynecology Comment on above: Annual Start: 03-30-2025 Influenza vaccination Influenza Vacc ine (#1) [facility] Start: 02-06-2025 End: 02-06-2025 Patient encounter procedure 02/06/2025 9:20 AM EDT Office Visit OB/Gynecology [address] [place] [address] Spencer Cordova MD [address] [place] [id number] Annual OB/Gynecology Comment on above: Annual Start: 10-21-2024 End: 10-21-2024 Patient encounter procedure 10/21/2024 10:00 AM EDT Office Visit OB/Gynecology [address] [place] [address] Spencer Cordova MD [address] [place] [address] 1 WK POST OB/Gynecology Comment on above: 1 WK POST Start: 10-16-2024 [facility] Start: 10-15-2024 Administration of medication [facility] Start: 10-15-2024 Application of ice collar, cap or bag [facility] Start: 10-15-2024 Catheterization of vein [facility] Start: 10-15-2024 Introduction of urin janet catheter [facility] Start: 10-15-2024 Measuring intake and output [facility] Start: 10-15-2024 Notification of physician [facility] Start: 10-15-2024 Procedure discontinued [facility] Start: 10-15-2024 Provision of activit y privileges [facility] Start: 10-15-2024 Vital signs measurements [facility] Start: 10-15-2024 End: 10-15-2024 [facility] Start: 10-15-2024 Documentation procedure [facility] Start: 10-15-2024 [facility] Start: 10-14-2024 Admission procedure [facility] Start: 10-14-2024 Consultation [facility] Start: 10-10-2024 End: 10-10-2024 Patient encounter procedure OB/Gynecology Comment on above: NST NST / OB Start: 2024 End: 2024 Patient encounter procedure 2024 10:00 AM EDT Routine Office Visit Maternal Medicine [address] [place] [address] BPP [facility] Comment on above: BPP Start: 10-03-2024 End: 10-03-2024 Patient encounter procedure OB/Gynecology Comment on above: NST/ob Start: 09-30-2024 End: 09-30-2024 Patient encounter procedure 09/30/2024 10:00 AM EST Routine Office Visit Maternal Medicine [address] [place] [address] BPP [facility]aternal Medicine Comment on above: BPP Start: 09-26-2024 End: 09-26-2024 Patient encounter procedure OB/Gynecology Comment on above: NST/ob KJ-NST/ob Start: 09-23-2024 End: 09-23-2024 Patient encounter procedure 09/23/2024 10:30 AM EST Routine Office Visit Maternal Medicine [address] [place] [address] BPP [facility]aternal Medicine Comment on above: BPP Start: 09-19-2024 End: 09-19-2024 Patient encounter procedure OB/Gynecology Comment on above: NST/ob Start: 09-16-2024 End: 09-16-2024 Patient encounter procedure 09/16/2024 9:30 AM EST Routine Office Visit Maternal Medicine [address] [place] [address] BPP Maternal Medicine Comment on above: BPP Start: 09-12-2024 End: 09-12-2024 Patient encounter procedure OB/Gynecology Comment on above: NST/ob Start: 09-09-2024 End: 09-09-2024 Patient encounter procedure 09/09/2024 11:30 AM EST Routine Office Visit Maternal Medicine [address] [place] [address] BPP/ok per LM Maternal Medicine Comment on above: BPP/ok per LM Start: 09-05-2024 End: 09-05-2024 Patient encounter procedure OB/Gynecology Comment on above: NST/ob Start: 09-02-2024 End: 09-02-2024 Patient encounter procedure 09/02/2024 9:30 AM EST Routine Office Visit Maternal Medicine [address] [place] [address] BPP Maternal Medicine Comment on above: BPP Start: 08-29-2024 End: 08-29-2024 Patient encounter procedure [facility] Comment on above: Growth US OB Routine Start: 08-14-2024 End: 08-14-2024 Patient encounter procedure 08/14/2024 10:20 AM EST Routine Office Visit OB/Gynecology [address] [place] [address] Spencer Cordova MD [address] [place] [address] OB Routine OB/Gynecology Comment on above: OB Routine Start: 07-31-2024 End: 07-31-2024 Patient encounter procedure [facility]aternal Medicine Comment on above: Growth OB Start: 07-31-2024 End: 10-30-[address] [facility] Comment on above: Expected: 07/31/2024 , Expires: 10/30/2024 Start: 07-31-2024 End: 07-31-2025 SYPHILIS TREPONEMAL W/REFLEX [facility] Work Phone: Comment on above: Expected: 07/31/2024 , Expires: 07/31/2025 Start: 07-04-2024 End: 07-04-2024 Patient encounter procedure 07/04/2024 10:20 AM EST Routine Office Visit OB/Gynecology [address] [place] [id number] Spencer Cordova MD [address] [place], [place] [phone] OB OB/Gynecology Comment on above: OB Start: 06-03-2024 End: 09-02-2024 ALPHA FETOPRO MATERNAL ALPHA FETOPRO MATERNAL Lab Routine 19 weeks gestation of Preexisting diabetes complicating , antepartum Supervision of high risk in first trimester Expected: 06/03/2024, Expires: 09/02/2024 [facility] Work Phone: Comment on above: Expected: 06/03/2024 , Expires: 09/02/2024 Start: 06-03-2024 End: 06-03-2025 OBSTETRIC ULTRASOUND WHI OBSTETRIC ULTRASOUND [facility]I Anc Imaging Routine 19 weeks gestation of Preexisting diabetes complicating , antepartum Expected: 06/03/2024, Expires: 06/03/2025 [facility] Comment on above: Expected: 06/03/2024 , Expires: 06/03/2025 Start: 06-03-2024 End: 06-03-2024 Patient encounter procedure 06/03/2024 11:40 AM EST Routine Office Visit OB/Gynecology [address] [place], [place] [id number] Spencer Cordova MD [address] [place] [id number] OB Routine OB/Gynecology Comment on above: OB Routine Start: 06-03-2024 End: 06-03-2024 Patient encounter procedure 06/03/2024 10:30 AM EST Routine Office Visit Maternal Medicine [address] [place] [address] Anatomy Scan [facility] Comment on above: Anatomy Scan Start: 05-20-2024 End: 05-20-2024 Patient encounter procedure 05/20/2024 9:50 AM EDT Routine Office Visit OB/Gynecology [address] [place] [address] Anna Bray MD [address] [place] [address] OB [place] OB/Gynecology Comment on above: [place] Start: 04-23-2024 End: 04-23-2024 Patient encounter procedure 04/23/2024 9:20 AM EDT Office Visit Neurology [address] [place] [address] Germaine Meza MD [address] [place] [address] History of sleep apnea [Z86.69]; Supervision of high risk in first trimester [O09.91] Neurology Comment on above: History of sleep international travel consultant ea [Z86.69]; Supervision of high risk in first trimester [O09.91] Start: 04-22-2024 End: 04-22-2024 Patient encounter procedure OB/Gynecology Comment on above: Consult to MFM/Nucha l Nuchal/OB Start: 03-30-2024 Covid-19 Vaccine ( season) Covid-19 Vacc[address] () [facility] Start: 03-30-2024 Influenza vaccination [facility] Start: 03-26-2024 End: 06-25-2024 HEMOGLOBIN EVALUATION CASCADE HEMOGLOBIN EVALUATION CASCADE Lab Routine Pre-existing type 1 diabetes mellitus in in first trimester Supervision of high risk in first trimester Expected: 03/26/2024, Expires: 06/25/2024 [facility] Comment on above: Expected: 03/26/2024 , Expires: 06/25/2024 Start: 03-19-2024 End: 03-19-2024 ambulatory 03/19/2024 9:15 AM EDT Results Only [facility] [address] [place] [address] [facility] Start: 03-17-2024 End: 03-17-2025 NUCHAL TRANSLUCENCY WHI NUCHAL TRANSLUCENCY WHI Anc Imaging Routine Supervision of high risk in first trimester Expected: 03/17/2024, Expires: 03/17/2025 [facility] Comment on above: Expected: 03/17/2024 , Expires: 03/17/2025 Start: 03-17-2024 End: 03-17-2025 OBSTETRIC ULTRASOUND WHI OBSTETRIC ULTRASOUND [facility] Anc Imaging Routine Supervision of high risk in first trimester Expected: 03/17/2024, Expires: 03/17/2025 [facility] Work Phone: Comment on above: Expected: 03/17/2024 , Expires: 03/17/2025 Start: 11-29-2023 Patient discharge [facility] Start: 11-28-2023 Following clinical pathway protocol [facility] Start: 11-28-2023 Care regimes management [facility] Start: 11-28-2023 Notification of physician [facility] Start: 11-28-2023 Assessment of risk o f venous thromboembolism [facility] Start: 11-28-2023 Following clinical pathway protocol [facility] Start: 11-28-2023 Insertion of cathete r into peripheral vein [facility] Start: 11-28-2023 Measuring intake and output [facility] Start: 11-28-2023 Notification of physician [facility] Start: 11-28-2023 Patient education [facility] Start: 11-28-2023 Patient referral to dietitian [facility] Start: 11-28-2023 Providing care accor ding to standard [facility] Start: 11-28-2023 Vital signs measurements [facility] Start: 11-28-2023 [facility] Start: 11-28-2023 Hospital admission, emergency, from emergency room, medical nature [facility] Start: 11-28-2023 Verification routine [facility] Start: 11-28-2023 Admission procedure [facility] Start: 11-28-2023 [facility] Start: 07-30-2023 Behavioral Health Screening Behavioral Health Screening [facility] Start: 03-30-2023 Covid-19 Vaccine () Covid-19 Vaccine () [facility] Start: 03-30-2023 Influenza vaccination Influenza Vacc ine (#1) [facility] Start: 10-07-2022 Patient discharge [facility] Start: 2022 Following clinical pathway protocol [facility] Start: 2022 Aspiration precautions [facility] Start: 2022 Assessment of risk o f venous thromboembolism [facility] Start: 2022 Cardiac monitoring [facility] Start: 2022 Care regimes management [facility] Start: 2022 Catheterization of vein [facility] Start: 2022 Continuous positive airway pressure ventilation treatment [facility] Start: 2022 Continuous pulse oximetry [facility] Start: 2022 Elevation of head of bed [facility] Start: 2022 Exercises [facility] Start: 2022 Fall prevention [facility] Start: [address] anned interventions [facility] Start: 2022 Insertion of cathete r into peripheral vein [facility] Start: 2022 Introduction of urin janet catheter [facility] Start: 2022 Measuring intake and output [facility] Start: 2022 Notification of physician [facility] Start: 2022 Oxygen therapy [facility] Start: 2022 Patient referral to dietitian [facility] Start: 2022 Providing care accor ding to standard [facility] Start: 2022 Provision of activit y privileges [facility] Start: 2022 Referral to occupati onal therapist [facility] Start: 2022 Referral to service [facility] Start: 2022 Speech therapy assessment [facility] Start: 2022 Tobacco use cessatio n education [facility] Start: 2022 [facility] Start: 2022 Verification routine [facility] Start: 2022 Admission procedure [facility] Start: 2022 Oxygen therapy [facility] Start: 2022 [facility] Start: 2022 HPV Testing HPV Testing [facility] Start: 2022 Screening for malign ant neoplasm of cervix HPV Testing [facility] Start: 2022 Patient referral to dietitian [facility] Start: 07-30-2022 Depression Assessment Depression Ass essment [facility] Start: 06-29-2022 Pap Testing Pap Testing [facility] Start: 06-29-2022 Screening for malign ant neoplasm of cervix Pap Testing [facility] Start: 06-13-2021 Covid-19 Vaccine (3 - Pfizer series) Covid-19 Vaccine (3 - Pfizer series) [facility] Start: 06-29-2020 Screening for malign ant neoplasm of cervix Cervical Cancer Screening [facility] Start: 06-13-2020 3 comp foot exam completed Diabetic Foot Exam [facility] Start: 06-13-2020 Diabetic foot examination Diabetic F oot Exam [facility] Start: 07-07-2018 Hepatitis B screening Urine Albumin:Creatinine Ratio [facility] Start: 07-07-2018 Hepatitis B surface antibody level LDL Cholesterol [facility] Start: 10-05-2017 Hemoglobin A1c measurement HbA1C [facility] Start: 10-05-2017 Hemoglobin A1c/Hemoglobin.total in Blood HbA1C [facility] Start: 10-07-2011 Hepatitis B Vaccine (1 of 3 - 19+ 3-dose series) Hepatitis B Vaccine (1 of 3 - 19+ 3-dose series) [facility] Start: 10-07-2011 Urine microalbumin profile DTaP,Tdap,Td Vaccine (1 - Tdap) [facility] Start: 2010 Annual PCP Team Regional Sales Director claudia Disease Visit Annual PCP Team Chronic Disease Visit [facility] Start: 2010 Depression Screening Depression Scre ening [facility] Start: 2010 Hepatitis C Screening Hepatitis C [facility] Start: 2010 Hepatitis C screening Hepatitis C [facility] Start: 2010 HIV Screening HIV Screening [facility] Start: 2010 HIV screening HIV Screening [facility] Start: 12-01-2007 HPV Vaccine (2 - 2-d ose series) HPV Vaccine (2 - 2-dose series) [facility] Start: 2002 Glaucoma screening Dilated Retinal E xam [facility] Start: 2002 Hepatitis C antibody , confirmatory test Dilated Retinal Exam [facility] Start: [address] [facility] Start: 1992 Hepatitis B Vaccine (1 of 3 - 3-dose series) Hepatitis B Vaccine (1 of 3 - 3-dose series) [facility] Amphetamine [Mass/vo lume] in Urine [facility] Benzodiazepine measurement, urine [facility] End: 02-25-2025 BIOPHYSICAL PROFILE US [facility] BIOPHYSICAL PROFILE US [facility] Anc Imaging Routine Supervision of high risk in second trimester Preexisting diabetes complicating , antepartum 31 weeks gestation of Once per week for 10 Occurrences starting 08/29/2024 until 02/25/2025 [facility] Work Phone: Comment on above: Once per week for 10 Occurrences starting 08/29/2024 until 02/25/2025 Cocaine measurement, urine [facility] End: 04-22-2025 ECHO ECHO Cardiology Routine 13 weeks gestation of Preexisting diabetes complicating , antepartum 1 Occurrences starting 04/22/2024 until 04/22/2025 [facility] Work Phone: Comment on above: 1 Occurrences starti ng 04/22/2024 until 04/22/2025 GROUP B STREPTOCOCCU S BY PCR, ROUTINE SCREENING GROUP B STREPTOCOCCUS BY PCR, ROUTINE SCREENING Microbiology Routine 35 weeks gestation of 09/26/2024 9:16 AM EST [facility] Work Phone: Influenza virus A an d B RNA and SARS-CoV-2 (COVID-19) N gene panel - Respiratory specimen by VENUS with probe detection COVID & INFLUENZA A/B NAAT, ROUTINE Microbiology Routine Acute URI Ordered: 04/18/2023 [facility] Work Phone: Comment on above: Ordered: 04/18/2023 Measurement of 3,4-methylenedioxymethamp hetamine in urine [facility] Methadone measuremen t, urine [facility] End: 10-03-2024 OBSTETRIC ULTRASOUND WHI OBSTETRIC ULTRASOUND [facility] Anc Imaging Routine Preexisting diabetes complicating , antepartum Supervision of high risk in second trimester Once per month for 4 Occurrences starting 07/03/2024 until 10/03/2024 [facility] Work Phone: Comment on above: Once per month for 4 Occurrences starting 07/03/2024 until 10/03/2024 Osmolality measureme nt, serum [facility] Patient Education [facility] Work Phone: Patient referral [facility] Work Phone: pH of Urine [facility] Phencyclidine [Prese nce] in Urine [facility] STREP A MOLECULAR (POC) STREP A MOLECULAR (POC) Microbiology Routine Acute URI Ordered: 04/18/2023 [facility] Work Phone: Comment on above: Ordered: 04/18/2023 Urine barbiturate measurement [facility] Urine cannabinoid measurement [facility] URINE OB DIP B/O URINE OB DIP B/ O Lab Routine Preexisting diabetes complicating , antepartum Hypothyroidism, unspecified type Supervision of high risk in third trimester 37 weeks gestation of Ordered: 10/10/2024 [facility] Work Phone: Comment on above: Ordered: 10/10/2024 Urine opiate measurement [facility] Immunizations Immunization Date Immunization Notes Care Provider Fa cility 07-31-2024 tetanus toxoid, redu bina diphtheria toxoid, and acellular pertussis vaccine, adsorbed Spencer Cordova MD Work Phone: [facility] 07-03-2024 influenza, seasonal, injectable Spencer Cordova MD Work Phone: [facility] 07-03-2024 influenza virus vacc ine, unspecified formulation Spencer Cordova MD Work Phone: [facility] 04-18-2021 SARS-CoV-2 mRNA (tozinameran) vaccine CINDY VARGASPKINS SCIENTIFIC ASSOCIATE - SALVAGE ENGINEERING TECHNICIAN [facility] 03-28-2021 SARS-CoV-2 mRNA (tozinameran) vaccine CINDY DAVID SCIENTIFIC ASSOCIATE - SALVAGE ENGINEERING TECHNICIAN [facility] 07-30-2018 tetanus and diphther ia toxoids, adsorbed, preservative free, for adult use (2 Lf of tetanus toxoid and 2 Lf of diphtheria toxoid) Spencer Cordova MD Work Phone: [facility] 07-30-2018 tetanus and diphther ia toxoids, adsorbed, preservative free, for adult use (5 Lf of tetanus toxoid and 2 Lf of diphtheria toxoid) CINDY HERNANDEZ SCIENTIFIC ASSOCIATE - SALVAGE ENGINEERING TECHNICIAN [facility] 02-23-2016 TD(adult) unspecifie d formulation Spencer Cordova MD Work Phone: [facility] 02-23-2016 tetanus and diphther ia toxoids, adsorbed, preservative free, for adult use (2 Lf of tetanus toxoid and 2 Lf of diphtheria toxoid) [facility] 10-25-2014 tetanus toxoid, redu bina diphtheria toxoid, and acellular pertussis vaccine, adsorbed CINDY HERNANDEZ SCIENTIFIC ASSOCIATE - SALVAGE ENGINEERING TECHNICIAN [facility] 05-16-2014 influenza virus vacc ine, unspecified formulation CINDY HERNANDEZ SCIENTIFIC ASSOCIATE - SALVAGE ENGINEERING TECHNICIAN [facility] 05-16-2014 influenza, seasonal, injectable Spencer Cordova MD Work Phone: [facility] 06-02-2007 human papilloma viru s vaccine, quadrivalent Spencer Cordova MD Work Phone: [facility] 06-02-2007 Human Papillomavirus Quadval CINDY HERNANDEZ SCIENTIFIC ASSOCIATE - SALVAGE ENGINEERING TECHNICIAN [facility] 11-08-1999 measles, mumps and rubella virus vaccine Spencer Cordova MD Work Phone: [facility] 11-08-1999 measles/mumps/rubell a virus vaccine CINDY VARGASPKINS SCIENTIFIC ASSOCIATE - SALVAGE ENGINEERING TECHNICIAN [facility] Payers Date Payer Category Payer Self-pay [id number] 2023 [employer] Blue [employer] BLUE CARD PPO OOS [id number] 2023 Unknown [employer] BLUE CARD PPO OOS [id number] 2023-Present [phone] [address] [place] [address] PPO [id number] 2023 Unknown [id number] 1992 Unknown [id number] Unknown [id number] Unknown [id number] Unknown [id number] Unknown [id number] Unknown [id number] Unknown [id number] Unknown [id number] Unknown [id number] Unknown [id number] Unknown [id number] Social History Date Type Detail Facility Start: 04-17-2019 End: 10-14-2024 Ex-smoker (finding) [facility] Comment on above: Daily smoke exposure Start: 1990 Sex Assigned At Female A [facility] Start: 10-08-2018 End: 12-03-2023 Tobacco smoking status MEIS Unknown if ever smoked [facility] End: 02-27-2017 History of tobacco use Current smoker [facility] End: 02-27-2017 History of tobacco use Cigarette Smoker [facility] Start: 04-18-2023 End: 03-17-2024 Tobacco use and exposure Smokeless tobacco non-user [facility] Start: 04-18-2023 End: 02-06-2025 Alcohol intake Current non-drinker of alcohol (finding) [facility] Start: 04-18-2023 End: 03-17-[address] [facility] Start: 04-18-2023 End: 03-17-[address] [facility] National Score (1-100), lower number is lower risk Not on file [facility] Start: 1990 Sex Assigned At Not on file C [facility] Start: 04-18-2023 Gender identity Identifies as female gender (finding) 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 Start: 02-02-2024 [facility] Start: 04-22-[address] [facility] Start: 10-16-2024 Sex Female (finding) [facility] NEGATED: Highlighted row [facility] Medical Equipment Procedure Code Equipment Code Equipment Origin al Text Equipment Identifier Dates Lancets Start: 09-10-2020 SUTURE,LIGA CLIP MED [id number] FDA Start: 02-15-2018 SUTURE,LIGA CLIP SM LT-100 FDA Start: 02-15-2018 Blood Sugar Diagnostic (Freestyle Lite Strips) strip Start: 12-24-2018 Lancets (Freesty le Lancets) 28 gauge misc Start: 08-29-2018 Pen Needle, Diabetic (Bd Ultra-Fine Angie Pen Needle) 32 gauge x 5/32 needle Start: 03-12-2018 Blood Sugar Diagnostic (Freestyle Lite Strips) strip Start: 01-09-2018 End: 08-28-2018 Blood Sugar Diagnostic (Freestyle Lite Strips) strip Start: 08-28-2018 End: 08-29-2018 Blood Sugar Diagnostic (Freestyle Lite Strips) strip Start: 08-29-2018 End: 12-24-2018 Lancets (Freesty le Lancets) 28 gauge misc Start: 08-28-2018 End: 08-29-2018 Pen Needle, Diabetic (Bd Ultra-Fine Angie Pen Needle) 32 gauge x 5/32 needle Start: 03-12-2018 End: 03-12-2018 See Instructions , Darion Metrix test strips to steffen 3 times daily One box has 2 bottle of 50., # 1 EA, 3 Refill(s), Pharmacy: [facility] #[id number], 160, cm, 06/27/22 10:20:00 EST, Height, 59.7, kg, 06/27/22 10:20:00 EST, Dosing Weight Start: 06-27-2022 See Instructions , qs 1 month supply Darion Metrix. Pt. tests 3times per day, # 1 EA, 6 Refill(s), Pharmacy: [facility] #[id number], 160, cm, 06/27/22 10:20:00 EST, Height, 59.7, kg, 06/27/22 10:20:00 EST, Dosing Weight Start: 06-27-2022 SUTURE,LIGA CLIP MED [id number] FDA Start: 02-15-2018 SUTURE,LIGA CLIP SM LT-100 FDA Start: 02-15-2018 Blood Sugar Diagnostic (Freestyle Lite Strips) strip Start: 12-24-2018 Lancets (Freesty le Lancets) 28 gauge misc Start: 08-29-2018 Pen Needle, Diabetic (Bd Ultra-Fine Angie Pen Needle) 32 gauge x 5/32 needle Start: 03-12-2018 Blood Sugar Diagnostic (Freestyle Lite Strips) strip Start: 01-09-2018 End: 08-28-2018 Blood Sugar Diagnostic (Freestyle Lite Strips) strip Start: 08-28-2018 End: 08-29-2018 Blood Sugar Diagnostic (Freestyle Lite Strips) strip Start: 08-29-2018 End: 12-24-2018 Lancets (Freesty le Lancets) 28 gauge misc Start: 08-28-2018 End: 08-29-2018 Pen Needle, Diabetic (Bd Ultra-Fine Angie Pen Needle) 32 gauge x 5/32 needle Start: 03-12-2018 End: 03-12-2018 SUTURE,LIGA CLIP MED LT200 FDA Start: 02-15-2018 SUTURE,LIGA CLIP SM LT-100 FDA Start: 02-15-2018 Blood Sugar Diagnostic (Freestyle Lite Strips) strip Start: 12-24-2018 Lancets (Freesty le Lancets) 28 gauge misc Start: 08-29-2018 Pen Needle, Diabetic (Bd Ultra-Fine Angie Pen Needle) 32 gauge x 5/32 needle Start: 03-12-2018 Blood Sugar Diagnostic (Freestyle Lite Strips) strip Start: 01-09-2018 End: 08-28-2018 Blood Sugar Diagnostic (Freestyle Lite Strips) strip Start: 08-28-2018 End: 08-29-2018 Blood Sugar Diagnostic (Freestyle Lite Strips) strip Start: 08-29-2018 End: 12-24-2018 Lancets (Freesty le Lancets) 28 gauge misc Start: 08-28-2018 End: 08-29-2018 Pen Needle, Diabetic (Bd Ultra-Fine Angie Pen Needle) 32 gauge x 5/32 needle Start: 03-12-2018 End: 03-12-2018 SUTURE,LIGA CLIP MED LT200 FDA Start: 02-15-2018 SUTURE,LIGA CLIP SM LT-100 FDA Start: 02-15-2018 Blood Sugar Diagnostic (Freestyle Lite Strips) strip Start: 12-24-2018 Lancets (Freesty le Lancets) 28 gauge misc Start: 08-29-2018 Pen Needle, Diabetic (Bd Ultra-Fine Angie Pen Needle) 32 gauge x 5/32 needle Start: 03-12-2018 Blood Sugar Diagnostic (Freestyle Lite Strips) strip Start: 01-09-2018 End: 08-28-2018 Blood Sugar Diagnostic (Freestyle Lite Strips) strip Start: 08-28-2018 End: 08-29-2018 Blood Sugar Diagnostic (Freestyle Lite Strips) strip Start: 08-29-2018 End: 12-24-2018 Lancets (Freesty le Lancets) 28 gauge misc Start: 08-28-2018 End: 08-29-2018 Pen Needle, Diabetic (Bd Ultra-Fine Angie Pen Needle) 32 gauge x 5/32 needle Start: 03-12-2018 End: 03-12-2018 See Instructions , Darion Metrix test strips to steffen 3 times daily One box has 2 bottle of 50., # 1 EA, 3 Refill(s), Pharmacy: [facility] #[id number], 160, cm, 06/27/22 10:20:00 EST, Height, 59.7, kg, 06/27/22 10:20:00 EST, Dosing Weight Start: 06-27-2022 See Instructions , qs 1 month supply Darion Metrix. Pt. tests 3times per day, # 1 EA, 6 Refill(s), Pharmacy: [facility] #[id number], 160, cm, 06/27/22 10:20:00 EST, Height, 59.7, kg, 06/27/22 10:20:00 EST, Dosing Weight Start: 06-27-2022 SUTURE,LIGA CLIP MED LT200 FDA Start: 02-15-2018 SUTURE,LIGA CLIP SM LT-100 FDA Start: 02-15-2018 Blood Sugar Diagnostic (Freestyle Lite Strips) strip Start: 12-24-2018 Lancets (Freesty le Lancets) 28 gauge misc Start: 08-29-2018 Pen Needle, Diabetic (Bd Ultra-Fine Angie Pen Needle) 32 gauge x 5/32 needle Start: 03-12-2018 Blood Sugar Diagnostic (Freestyle Lite Strips) strip Start: 01-09-2018 End: 08-28-2018 Blood Sugar Diagnostic (Freestyle Lite Strips) strip Start: 08-28-2018 End: 08-29-2018 Blood Sugar Diagnostic (Freestyle Lite Strips) strip Start: 08-29-2018 End: 12-24-2018 Lancets (Freesty le Lancets) 28 gauge misc Start: 08-28-2018 End: 08-29-2018 Pen Needle, Diabetic (Bd Ultra-Fine Angie Pen Needle) 32 gauge x 5/32 needle Start: 03-12-2018 End: 03-12-2018 [id number], [id number] Start: 07-13-2017 Comment on above: Test blood sugar(s) 3 times daily. Dx: Type 2 DM - Uncontrolled E11.65 Insulin: No Test blood sugar(s) 2 times daily. Dx: Type 2 DM - Uncontrolled E11.65 Insulin: No SUTURE,LIGA CLIP MED LT200 FDA Start: 02-15-2018 SUTURE,LIGA CLIP LT-100 FDA Start: 02-15-2018 Blood Sugar Diagnostic (Freestyle Lite Strips) strip Start: 12-24-2018 Lancets (Freesty le Lancets) 28 gauge misc Start: 08-29-2018 Pen Needle, Diabetic (Bd Ultra-Fine Angie Pen Needle) 32 gauge x 5/32 needle Start: 03-12-2018 Blood Sugar Diagnostic (Freestyle Lite Strips) strip Start: 01-09-2018 End: 08-28-2018 Blood Sugar Diagnostic (Freestyle Lite Strips) strip Start: 08-28-2018 End: 08-29-2018 Blood Sugar Diagnostic (Freestyle Lite Strips) strip Start: 08-29-2018 End: 12-24-2018 Lancets (Freesty le Lancets) 28 gauge misc Start: 08-28-2018 End: 08-29-2018 Pen Needle, Diabetic (Bd Ultra-Fine Angie Pen Needle) 32 gauge x 5/32 needle Start: 03-12-2018 End: 03-12-2018 See Instructions , Darion Metrix test strips to steffen 3 times daily One box has 2 bottle of 50., # 1 EA, 3 Refill(s), Pharmacy: [facility] #[id number], 160, cm, 06/27/22 10:20:00 EST, Height, 59.7, kg, 06/27/22 10:20:00 EST, Dosing Weight Start: 06-27-2022 See Instructions , qs 1 month supply Darion Metrix. Pt. tests 3times per day, # 1 EA, 6 Refill(s), Pharmacy: [facility] #[id number], 160, cm, 06/27/22 10:20:00 EST, Height, 59.7, kg, 06/27/22 10:20:00 EST, Dosing Weight Start: 06-27-2022 SUTURE,LIGA CLIP MED LT200 FDA Start: 02-15-2018 SUTURE,LIGA CLIP SM LT-100 FDA Start: 02-15-2018 Blood Sugar Diagnostic (Freestyle Lite Strips) strip Start: 12-24-2018 Lancets (Freesty le Lancets) 28 gauge misc Start: 08-29-2018 Pen Needle, Diabetic (Bd Ultra-Fine Angie Pen Needle) 32 gauge x 5/32 needle Start: 03-12-2018 Blood Sugar Diagnostic (Freestyle Lite Strips) strip Start: 01-09-2018 End: 08-28-2018 Blood Sugar Diagnostic (Freestyle Lite Strips) strip Start: 08-28-2018 End: 08-29-2018 Blood Sugar Diagnostic (Freestyle Lite Strips) strip Start: 08-29-2018 End: 12-24-2018 Lancets (Freesty le Lancets) 28 gauge misc Start: 08-28-2018 End: 08-29-2018 Pen Needle, Diabetic (Bd Ultra-Fine Angie Pen Needle) 32 gauge x 5/32 needle Start: 03-12-2018 End: 03-12-2018 SUTURE,LIGA CLIP MED LT200 FDA Start: 02-15-2018 SUTURE,LIGA CLIP SM LT-100 FDA Start: 02-15-2018 Blood Sugar Diagnostic (Freestyle Lite Strips) strip Start: 12-24-2018 Lancets (Freesty le Lancets) 28 gauge misc Start: 08-29-2018 Pen Needle, Diabetic (Bd Ultra-Fine Angie Pen Needle) 32 gauge x 5/32 needle Start: 03-12-2018 Blood Sugar Diagnostic (Freestyle Lite Strips) strip Start: 01-09-2018 End: 08-28-2018 Blood Sugar Diagnostic (Freestyle Lite Strips) strip Start: 08-28-2018 End: 08-29-2018 Blood Sugar Diagnostic (Freestyle Lite Strips) strip Start: 08-29-2018 End: 12-24-2018 Lancets (Freesty le Lancets) 28 gauge misc Start: 08-28-2018 End: 08-29-2018 Pen Needle, Diabetic (Bd Ultra-Fine Angie Pen Needle) 32 gauge x 5/32 needle Start: 03-12-2018 End: 03-12-2018 SUTURE,LIGA CLIP MED LT200 FDA Start: 02-15-2018 SUTURE,LIGA CLIP SM LT-100 FDA Start: 02-15-2018 Blood Sugar Diagnostic (Freestyle Lite Strips) strip Start: 12-24-2018 Lancets (Freesty le Lancets) 28 gauge misc Start: 08-29-2018 Pen Needle, Diabetic (Bd Ultra-Fine Angie Pen Needle) 32 gauge x 5/32 needle Start: 03-12-2018 Blood Sugar Diagnostic (Freestyle Lite Strips) strip Start: 01-09-2018 End: 08-28-2018 Blood Sugar Diagnostic (Freestyle Lite Strips) strip Start: 08-28-2018 End: 08-29-2018 Blood Sugar Diagnostic (Freestyle Lite Strips) strip Start: 08-29-2018 End: 12-24-2018 Lancets (Freesty le Lancets) 28 gauge misc Start: 08-28-2018 End: 08-29-2018 Pen Needle, Diabetic (Bd Ultra-Fine Angie Pen Needle) 32 gauge x 5/32 needle Start: 03-12-2018 End: 03-12-2018 SUTURE,LIGA CLIP MED LT200 FDA Start: 02-15-2018 SUTURE,LIGA CLIP SM LT-100 FDA Start: 02-15-2018 Blood Sugar Diagnostic (Freestyle Lite Strips) strip Start: 12-24-2018 Lancets (Freesty le Lancets) 28 gauge misc Start: 08-29-2018 Pen Needle, Diabetic (Bd Ultra-Fine Angie Pen Needle) 32 gauge x 5/32 needle Start: 12-06-2023 Blood Sugar Diagnostic (Freestyle Lite Strips) strip Start: 01-09-2018 End: 08-28-2018 Blood Sugar Diagnostic (Freestyle Lite Strips) strip Start: 08-28-2018 End: 08-29-2018 Blood Sugar Diagnostic (Freestyle Lite Strips) strip Start: 08-29-2018 End: 12-24-2018 Lancets (Freesty le Lancets) 28 gauge misc Start: 08-28-2018 End: 08-29-2018 Pen Needle, Diabetic (Bd Ultra-Fine Angie Pen Needle) 32 gauge x 5/32 needle Start: 03-12-2018 End: 03-12-2018 Pen Needle, Diabetic (Bd Ultra-Fine Angie Pen Needle) 32 gauge x 5/32 needle Start: 03-12-2018 End: 12-03-2023 SUTURE,LIGA CLIP MED LT200 FDA Start: 02-15-2018 SUTURE,LIGA CLIP SM LT-100 FDA Start: 02-15-2018 Lancets (Freesty le Lancets) 28 gauge misc Start: 08-29-2018 Pen Needle, Diabetic (Bd Ultra-Fine Angie Pen Needle) 32 gauge x 5/32 needle Start: 01-16-2024 Blood Sugar Diagnostic (Freestyle Lite Strips) strip Start: 01-09-2018 End: 08-28-2018 Blood Sugar Diagnostic (Freestyle Lite Strips) strip Start: 08-28-2018 End: 08-29-2018 Blood Sugar Diagnostic (Freestyle Lite Strips) strip Start: 08-29-2018 End: 12-24-2018 Blood Sugar Diagnostic (Freestyle Lite Strips) strip Start: 12-24-2018 End: 01-16-2024 Lancets (Freesty le Lancets) 28 gauge misc Start: 08-28-2018 End: 08-29-2018 Pen Needle, Diabetic (Bd Ultra-Fine Angie Pen Needle) 32 gauge x 5/32 needle Start: 03-12-2018 End: 03-12-2018 Pen Needle, Diabetic (Bd Ultra-Fine Angie Pen Needle) 32 gauge x 5/32 needle Start: 03-12-2018 End: 12-03-2023 Pen Needle, Diabetic (Bd Ultra-Fine Angie Pen Needle) 32 gauge x 5/32 needle Start: 12-06-2023 End: 01-16-2024 SUTURE,LIGA CLIP MED LT200 FDA Start: 02-15-2018 SUTURE,LIGA CLIP SM LT-100 FDA Start: 02-15-2018 Lancets (Freesty le Lancets) 28 gauge misc Start: 08-29-2018 Pen Needle, Diabetic (Bd Ultra-Fine Angie Pen Needle) 32 gauge x 5/32 needle Start: 01-16-2024 Blood Sugar Diagnostic (Freestyle Lite Strips) strip Start: 01-09-2018 End: 08-28-2018 Blood Sugar Diagnostic (Freestyle Lite Strips) strip Start: 08-28-2018 End: 08-29-2018 Blood Sugar Diagnostic (Freestyle Lite Strips) strip Start: 08-29-2018 End: 12-24-2018 Blood Sugar Diagnostic (Freestyle Lite Strips) strip Start: 12-24-2018 End: 01-16-2024 Lancets (Freesty le Lancets) [facility] Start: 08-28-2018 End: 08-29-2018 Pen Needle, Diabetic (Bd Ultra-Fine Angie Pen Needle) 32 gauge x 5/32 needle Start: 03-12-2018 End: 03-12-2018 Pen Needle, Diabetic (Bd Ultra-Fine Angie Pen Needle) 32 gauge x 5/32 needle Start: 03-12-2018 End: 12-03-2023 Pen Needle, Diabetic (Bd Ultra-Fine Angie Pen Needle) 32 gauge x 5/32 needle Start: 12-06-2023 End: 01-16-2024 Goals Date Patient Goal Desired Activity /State Personal health goal Functional Status Date Assessment Result Facility 11-29-2023 Functional status Ambulates;Up a d chauncey;Bathroom Privilege [facility] Work Phone: 10-07-2022 Functional status Activity Ability Indepe ndent [facility] Work Phone: Mental Status Date Assessment Result Facility 11-29-2023 Cognitive function Voice/Name [facility] Work Phone: 11-28-2023 Cognitive function Level Of Cons ciousness Awake;Alert;Appropriate;Follow s Commands [facility] Work Phone: 11-14-2023 Cognitive function Level Of Cons ciousness Awake;Alert;Appropriate;Follow s Commands [facility] Work Phone: 10-07-2022 Cognitive function Voice/Name [facility] Work Phone: 2022 Cognitive function Appropriate;Cooperativ e [facility] Work Phone: Clinical Notes 11-09-2021 to 02-06-2025 Spencer Cordova MD - 02/06/2025 8:54 AM EDT Note Date & Type Note Facility 02-06-2025 Note HNO ID: [id number] Author: SPENCER CORDOVA MD Service: ? Author Type: Physician Type: Progress Notes Filed: 02/06/2025 11:48 Note Text: Brit is a 34 year old who presents for an annual gynecologic exam without complaints. Still get period: Yes Bleeding amount bothersome: No Bleeding between periods: Yes Period symptoms: None Time with current partner: 6 years Number of lifetime partners: 2 control frequency: Always HPV vaccine: Yes; HPV:negative Last pap smear: 2023 negative History of abnormal pap: No, all prior PAP smears have been normal Bothersome pelvic pain: No Last mammogram: never OB History Gravida2 Para1 Term1 Preterm0 AB1 Living1 SAB1 IAB0 Ectopic0 Multiple0 Live Births1 Credit Underwriter History LMP: 01/16/2025 (Exact Date), Having periods Age at Menarche: 12 Age at First : Age at Menopause: Credit Underwriter History Comments: Sexual Activity: Yes; Male Contraception: Pill Menstrual Tracking History Flowsheet Row Office Visit from 02/06/2025 in OB/Gynecology Period Cycle (Days) 30 Period Duration (Days) 6 Menstrual Flow Moderate PAST MEDICAL HISTORY Diagnosis Date Antepartum anemia complicating in third trimester (HCC) 08/01/2024 History of PCOS 03/17/2024 Hypothyroidism thyroid was removed Sleep apnea 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 Type 1 diabetes ([facility]) 2017 PAST SURGICAL HISTORY Procedure Laterality Date THYROIDECTOMY FAMILY HISTORY Problem Relation Age of Onset None Mother Hypertension Father Hyperlipidemia Father None Sister Arthritis Maternal Grandmother Prostate Cancer Maternal Grandfather Skin Cancer Maternal Grandfather Heart Attack Maternal Grandfather Cancer Paternal Grandmother Cancer Paternal Grandfather SOCIAL HISTORY Social History Tobacco Use Smoking status: Former Current packs/day: 0.00 Types: Cigarettes Quit date: 02/27/2017 Years since quittin.9 Smokeless tobacco: Never Vaping Use Vaping status: Never Used Substance Use Topics Alcohol use: No Drug use: No REVIEW OF SYSTEMS Abdomen: No abdominal pain, nausea, vomiting, diarrhea, or constipation. No bloating, early satiety, indigestion, or increased flatulence. Bladder: No dysuria, gross hematuria, urinary frequency, urinary urgency, or incontinence. Breast: No breast lumps, nipple d/c, overlying skin changes, redness or skin retraction. Allergies and current medication updated:Yes SENSITIVE EXAM: The sensitive examination was discussed with the Patient or Patient's Authorized Bog Cutter. As applicable, any other physician, advance practice provider, medical student, or other health professional student that will be observing or involved in the sensitive examination for educational or training purposes was discussed with the Patient or Authorized Bog Cutter. The Patient or Authorized Bog Cutter has agreed to proceed with the sensitive examination. (Sensitive examination includes inspection and/or palpation of the breasts, pelvis, prostate and anorectal regions). EXAM: BP 104/58 Ht 5' 4 (1.63m) Wt 154 lb (69.9kg) LMP 01/16/2025 BMI 26.42 kg/(m2). GENERAL: pleasant, female in no apparent distress BREAST: soft, non-tender, symmetric, no dominant mass, normal nipple-areolar complex, no lymphadenopathy, and no nipple discharge CHEST: Normal inspiratory effort ABDOMEN: soft, non-tender, and no masses PELVIC: external genitalia normal, normal Bartholin's glands, urethra, Wilmont's glands, no vulvar lesions, no cervical lesions, good vaginal support, physiologic discharge present, normal appearing perineal body and perianal region BIMANUAL: uterus normal size, shape and consistency, no adnexal masses, and non-tender RECTOVAGINAL: deferred. NEURO: alert and oriented x3,exam grossly non-focal EXTREMITIES: normal ASSESSMENT/PLAN: 1) Health maintenance: Pap/HPV up to date. Nutrition, exercise and routine health maintenance exams reviewed. 2) Contraception: combined hormonal contraceptives. Contraceptive options reviewed and information provided. 3) Follow up one year or sooner as needed Spencer Cordova MD [facility] 02-06-2025 History of Present illness Narrative Brit is a 34 year old who presents for an annual gynecologic exam without complaints. Still get period: Yes Bleeding amount bothersome: No Bleeding between periods: Yes Period symptoms: None Time with current partner: 6 years Number of lifetime partners: 2 control frequency: Always HPV vaccine: Yes; HPV:negative Last pap smear: 2023 negative History of abnormal pap: No, all prior PAP smears have been normal Bothersome pelvic pain: No Last mammogram: never OB History Gravida2 Para1 Term1 Preterm0 AB1 Living1 SAB1 IAB0 Ectopic0 Multiple0 Live Births1 Credit Underwriter History LMP: 01/16/2025 (Exact Date), Having periods Age at Menarche: 12 Age at First : Age at Menopause: Credit Underwriter History Comments: Sexual Activity: Yes; Male Contraception: Pill Menstrual Tracking History Flowsheet Row Office Visit from 02/06/2025 in OB/Gynecology Period Cycle (Days) 30 Period Duration (Days) 6 Menstrual Flow Moderate PAST MEDICAL HISTORY Diagnosis Date Antepartum anemia complicating in third trimester (HCC) 08/01/2024 History of PCOS 03/17/2024 Hypothyroidism thyroid was removed Sleep apnea 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 Type 1 diabetes (HCC) 2017 PAST SURGICAL HISTORY Procedure Laterality Date THYROIDECTOMY FAMILY HISTORY Problem Relation Age of Onset None Mother Hypertension Father Hyperlipidemia Father None Sister Arthritis Maternal Grandmother Prostate Cancer Maternal Grandfather Skin Cancer Maternal Grandfather Heart Attack Maternal Grandfather Cancer Paternal Grandmother Cancer Paternal Grandfather SOCIAL HISTORY Social History Tobacco Use Smoking status: Former Current packs/day: 0.00 Types: Cigarettes Quit date: 02/27/2017 Years since quittin.9 Smokeless tobacco: Never Vaping Use Vaping status: Never Used Substance Use Topics Alcohol use: No Drug use: No REVIEW OF SYSTEMS Abdomen: No abdominal pain, nausea, vomiting, diarrhea, or constipation. No bloating, early satiety, indigestion, or increased flatulence. Bladder: No dysuria, gross hematuria, urinary frequency, urinary urgency, or incontinence. Breast: No breast lumps, nipple d/c, overlying skin changes, redness or skin retraction. Allergies and current medication updated:Yes SENSITIVE EXAM: The sensitive examination was discussed with the Patient or Patient's Authorized Bog Cutter. As applicable, any other physician, advance practice provider, medical student, or other health professional student that will be observing or involved in the sensitive examination for educational or training purposes was discussed with the Patient or Authorized Bog Cutter. The Patient or Authorized Bog Cutter has agreed to proceed with the sensitive examination. (Sensitive examination includes inspection and/or palpation of the breasts, pelvis, prostate and anorectal regions). EXAM: BP 104/58 Ht 5' 4 (1.63m) Wt 154 lb (69.9kg) LMP 01/16/2025 BMI 26.42 kg/(m^2). GENERAL: pleasant, female in no apparent distress BREAST: soft, non-tender, symmetric, no dominant mass, normal nipple-areolar complex, no lymphadenopathy, and no nipple discharge CHEST: Normal inspiratory effort ABDOMEN: soft, non-tender, and no masses PELVIC: external genitalia normal, normal Bartholin's glands, urethra, Wilmont's glands, no vulvar lesions, no cervical lesions, good vaginal support, physiologic discharge present, normal appearing perineal body and perianal region BIMANUAL: uterus normal size, shape and consistency, no adnexal masses, and non-tender RECTOVAGINAL: deferred. NEURO: alert and oriented x3,exam grossly non-focal EXTREMITIES: normal ASSESSMENT/PLAN: 1) Health maintenance: Pap/HPV up to date. Nutrition, exercise and routine health maintenance exams reviewed. 2) Contraception: combined hormonal contraceptives. Contraceptive options reviewed and information provided. 3) Follow up one year or sooner as needed Spencer Cordova MD documented in this encounter [facility] 11-20-2024 Evaluation note Diagnosis Onset Date Resolution Hypothyroidism chronic October 10:41am Type 1 diabetes mellitus without complications chronic October 10:41am [facility] Work Phone: 1(729) 634-499204-22-2025 Instructions* Patient Instructions* Spencer Cordova MD - 11/18/2024 11:11 AM EDT Your prescription for the combined control pill (similar to Enskyse) has been sent to your pharmacy. Begin taking the pill this Sunday. Continue taking the pill daily, even if you experience any bleeding. The pill will be fully effective after you complete a full pack but please be aware that you may notice some breakthrough bleeding during the first few packs. If you decide to pursue permanent control later, consider scheduling a consultation for tubalsterilization with Dr. Goncalves, Dr. Gibson, or Dr. Hernandez, or discuss the option of a partner s vasectomy. Schedule an annual follow-up visit in 2 to 3 months to review your progress and overall health. [facility] NoteHNO ID: [id number] Author: SPENCER CORDOVA MD Service: ? Author Type: Physician Type: Progress Notes Filed: 11/18/2024 11:12 Note Text: Obstetrics and Gynecology [place] [employer] Visit Subjective Recording using [employer] software for draft documentation of the visit was discussed with the patient/authorized players club representative; all questions welcomed and answered. Patient/authorized players club representative agreed to proceed CHIEF COMPLAINT: The patient is a 34-year-old female with a history of diabetes presenting for contraception counseling. HPI: Contraception Counseling and Management - Previously used Enskyce, a combined oral contraceptive pill, for several years with good tolerance and effectiveness. - Interested in resuming Enskyce. - Feels confident in her ability to take a pill at the same time every day. - Bottle feeding her [id number] . - Denies history of migraine headaches, blood clots, or vascular issues related to diabetes. - Not interested in long-acting reversible contraceptives (LARCs) such as an intrauterine device or Nexplanon at this time. - Considering tubal ligation next year due to current work constraints and inability to take additional time off. - Partner has not yet considered a vasectomy. 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 Type 1 diabetes (HCC) 2017 PAST SURGICAL HISTORY Procedure Laterality Date THYROIDECTOMY FAMILY HISTORY Problem Relation Age of Onset None Mother Hypertension Father Hyperlipidemia Father None Sister Arthritis Maternal Grandmother Prostate Cancer Maternal Grandfather Skin Cancer Maternal Grandfather Heart Attack Maternal Grandfather Cancer Paternal Grandmother Cancer Paternal Grandfather Social History Tobacco Use Smoking status: Former Current packs/day: 0.00 Types: Cigarettes Quit date: 02/27/2017 Years since quittin.7 Smokeless tobacco: Never Vaping Use Vaping status: Never Used Substance Use Topics Alcohol use: No Drug use: No Current Outpatient Medications Medication Sig Azelaic Acid 15 % gel APPLY A THIN LAYER TO THE FACE ONCE DAILY, OPPOSITE OF CLINDAMYCIN. clindamycin (CLEOCIN-T) 1 % gel APPLY A THIN LAYER TO THE FACE ONCE DAILY, OPPOSITE OF AZELAIC ACID. DEXCOM G7 SENSOR sri USE DIRECTED, REPLACE EVERY 10 DAYS sertraline (ZOLOFT) 100 mg tablet Take 1 tablet by mouth every afternoon. insulin degludec (TRESIBA FLEXTOUCH U-100) 100 unit/mL (3 mL) injection pen Take per endocrinology. insulin aspart U-100 (NOVOLOG FLEXPEN U-100 INSULIN) 100 unit/mL (3 mL) Takes before meals per endocrinology. ferrous sulfate (SLOW FE) 140 mg (45 mg iron) TbER Take 1 tablet by mouth once daily. metFORMIN (GLUCOPHAGE) 1,000 mg tablet Take 1,000 mg by mouth daily with breakfast. levothyroxine (SYNTHROID) 112 mcg tablet Take 125 mcg by mouth daily before breakfast. One tablet daily except for sunday she takes 1 1/2 tablets and Sunday is 2 tablets blood sugar diagnostic (FREESTYLE INSULINX TEST STRIPS) test strip Test blood sugar(s) 3 times daily. Dx: Type 2 DM - Uncontrolled E11.65 Insulin: No Blood-Glucose Meter (FREESTYLE INSULINX) misc Dx: Type 2 DM - Uncontrolled E11.65 lancets (FREESTYLE LANCETS) 28 gauge misc Test blood sugar(s) 2 times daily. Dx: Type 2 DM - Uncontrolled E11.65 Insulin: No Desogestrel-Ethinyl Estradiol (ENSKYCE) 0.15-0.03 mg per tablet Take 1 tablet by mouth once daily. No current facility-administered medications for this visit. ALLERGIES Allergen Reactions Adhesive Rash REVIEW OF SYSTEMS: Head: (-) migraine headaches Objective SENSITIVE EXAM: Sensitive exam not performed. PHYSICAL EXAM: BP 100/68 Wt 162 lb 3.2 oz (73.6kg) LMP 01/19/2024 General: No acute distress. Assessment AND Plan ASSESSMENT AND PLAN: 1. Counseling for control, oral contraceptives (Z30.09) - Discussed resuming Enskyce, a combined oral contraceptive pill, which patient has used successfully in the past. - Confirmed patient is bottle feeding and has no contraindications such as migraines, personal history of blood clots, or vascular issues related to diabetes. - Educated on the safety and efficacy of combined oral contraceptives, including typical use failure rate of 5% and perfect use failure rate of 2%. - Discussed slight increased risks of thromboembolism and myocardial infarction, noting that these risks are m (more content not included)...[facility]04-22-2025 History of Present illness Narrative* Spencer Cordova MD - 11/18/2024 11:02 AM EDT Images from the original note were not included. Obstetrics and Gynecology [place] [employer] Visit Subjective Recording using [employer] software for draft documentation of the visit was discussed with the patient/authorized players club representative; all questions welcomed and answered. Patient/authorized players club representative agreed to proceed CHIEF COMPLAINT: The patient is a 34-year-old female with a history of diabetes presenting for contraception counseling. HPI: Contraception Counseling and Management - Previously used Enskyce, a combined oral contraceptive pill, for several years with good tolerance and effectiveness. - Interested in resuming Enskyce. - Feels confident in her ability to take a pill at the same time every day. - Bottle feeding her xra-ajric-nnc infant. - Denies history of migraine headaches, blood clots, or vascular issues related to diabetes. - Not interested in long-acting reversible contraceptives (LARCs) such as an intrauterine device orNexplanon at this time. - Considering tubal ligation next year due to current work constraints and inability to take additional time off. - Partner has not yet considered a vasectomy. 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 Type 1 diabetes ([facility]) 2016 PAST SURGICAL HISTORY Procedure Laterality Date THYROIDECTOMY FAMILY HISTORY Problem Relation Age of Onset None Mother Hypertension Father Hyperlipidemia Father None Sister Arthritis Maternal Grandmother Prostate Cancer Maternal Grandfather Skin Cancer Maternal Grandfather Heart Attack Maternal Grandfather Cancer Paternal Grandmother Cancer Paternal Grandfather Social History Tobacco Use Smoking status: Former Current packs/day: 0.00 Types: Cigarettes Quit date: 02/27/2017 Years since quittin.7 Smokeless tobacco: Never Vaping Use Vaping status: Never Used Substance Use Topics Alcohol use: No Drug use: No Current Outpatient Medications Medication Sig Azelaic Acid 15 % gel APPLY A THIN LAYER TO THE FACE ONCE DAILY, OPPOSITE OF CLINDAMYCIN. clindamycin (CLEOCIN-T) 1 % gel APPLY A THIN LAYER TO THE FACE ONCE DAILY, OPPOSITE OF AZELAIC ACID. DEXCOM G7 SENSOR sri USE DIRECTED, REPLACE EVERY 10 DAYS sertraline (ZOLOFT) 100 mg tablet Take 1 tablet by mouth every afternoon. insulin degludec (TRESIBA FLEXTOUCH U-100) 100 unit/mL (3 mL) injection pen Take per endocrinology. insulin aspart U-100 (NOVOLOG FLEXPEN U-100 INSULIN) 100 unit/mL (3 mL) Takes before meals per endocrinology. ferrous sulfate (SLOW FE) 140 mg (45 mg iron) TbER Take 1 tablet by mouth once daily. metFORMIN (GLUCOPHAGE) 1,000 mg tablet Take 1,000 mg by mouth daily with breakfast. levothyroxine (SYNTHROID) 112 mcg tablet Take 125 mcg by mouth daily before breakfast. One tablet daily except for sunday she takes 1 1/2 tablets and Sunday is 2 tablets blood sugar diagnostic (FREESTYLE INSULINX TEST STRIPS) test strip Test blood sugar(s) 3 times daily. Dx: Type 2 DM - Uncontrolled E11.65 Insulin: No Blood-Glucose Meter (FREESTYLE INSULINX) misc Dx: Type 2 DM - Uncontrolled E11.65 lancets (FREESTYLE LANCETS) 28 gauge misc Test blood sugar(s) 2 times daily. Dx: Type 2 DM - Uncontrolled E11.65 Insulin: No Desogestrel-Ethinyl Estradiol (ENSKYCE) 0.15-0.03 mg per tablet Take 1 tablet by mouth once daily. No current facility-administered medications for this visit. ALLERGIES Allergen Reactions Adhesive Rash REVIEW OF SYSTEMS: Head: (-) migraine headaches Objective SENSITIVE EXAM: Sensitive exam not performed. PHYSICAL EXAM: BP 100/68 Wt 162 lb 3.2 oz (73.6kg) LMP 01/19/2024 General: No acute distress. Assessment & Plan ASSESSMENT AND PLAN: 1. Counseling for control, oral contraceptives (Z30.09) - Discussed resuming Enskyce, a combined oral contraceptive pill, which patient has used successfully in the past. - Confirmed patient is bottle feeding and has no contraindications such as migraines, personal history of blood clots, or vascular issues related to diabetes. - Educated on the safety and efficacy of combined oral contraceptives, including typical use failure rate of 5% and perfect use failure rate of 2%. - Discussed slight increased risks of thromboembolism and myocardial infarction, noting that these risks are minimal in young, healthy, non-smoking individuals. - Advised to start the pill on the first Sunday after the onset of the menstrual cycle or immediately if no cycle occurs within 8 weeks , with the understanding that starting off-cycle may increase the likelihood of breakthrough bleeding. - Informed that contraceptive efficacy is achieved after two weeks of consistent use. - Discussed long-term contraceptive options, including tubal sterilization and vasectomy, with details on recovery times and scheduling. - Prescription for Enskyce transmitted to pharmacy. - Scheduled follow-up annual visit in 2-3 months to monitor contraceptive use and overall health. Spencer Cordova MD documented in this encounterSt. [facility] NoteHNO ID: [id number] Author: SPENCER CORDOVA MD Service: ? Author Type: Physician Type: Progress Notes Filed: 10/21/2024 10:02 Note Text: EARLY VISIT Brit Velasquez is a 34 year old here for 1 week visit. Delivery Summary: 10/15/2024 ROS: General: Denies any fever or chills Hypertension Screening: Headache? No. Visual Changes? No Epigastric Pain? No Increased Swelling? No Taking any BP medications at home? No If applicable, monitoring BP at home? (If Yes, include results) NA Mood: normal Depression: denies symptoms of depression. OB Depression and Anxiety Screening- This Encounter (since 10/20/2024) Over the past 2 weeks have you felt down, depressed, or hopeless? Negative Over the past two weeks, have you felt little interest or pleasure in doing things?? Negative Feeling nervous, anxious or on edge 0-Not at all Not being able to stop or control worrying 0-Not al all Anxiety Pre-Screening Total (If >/= 3 additional questions will be reviewed) 0 Feeding: Bottle feeding problems: None Bladder: No dysuria, gross hematuria, urinary frequency, urinary urgency, or incontinence Bowel symptoms: Negative for abdominal discomfort, blood in stools or black stools and change in bowel habits Abdomen: N/A Bleeding: light flow Bottom and Perineum: No issues Sleep: no sleep concerns and sleeps in bassinet/crib in parent's room, feels rested Hilger since delivery: Not resumed Emotional support: Yes Exercise: N/A Other issues: None SENSITIVE EXAM: Sensitive exam not performed. PHYSICAL EXAMINATION: BP 104/60 Wt 75.1 kg (165 lb 9.6 oz) LMP 01/19/2024 No BMI 29.33 kg/m? General: pleasant,female in no apparent distress, AANDO x 3. Skin warm and intact. Breast: Deferred Abdomen: Deferred /Incision: N/A Pelvic: Deferred Bimanual: Deferred ASSESSMENT AND PLAN: 34 year old status post with normal course. Contraception plan: undecided . Reinforced 6-week pelvic rest. Encouraged condom usage should patient deviate. Education: resources provided - see MA/RN note Follow up: Return to Clinic for 6 week visit and as needed Spencer Cordova [facility]03-25-2025 History of Present illness Narrative* Spencer Cordova MD - 10/21/2024 9:48 AM EDT EARLY VISIT Brit Velasquez is a 34 year old here for 1 week visit. Delivery Summary: 10/15/2024 ROS: General: Denies any fever or chills Hypertension Screening: Headache? No. Visual Changes? No Epigastric Pain? No Increased Swelling? No Taking any BP medications at home? No If applicable, monitoring BP at home? (If Yes, include results) NA Mood: normal Depression: denies symptoms of depression. OB Depression and Anxiety Screening- This Encounter (since 10/20/2024) Over the past 2 weeks have you felt down, depressed, or hopeless? Negative Over the past two weeks, have you felt little interest or pleasure in doing things? Negative Feeling nervous, anxious or on edge 0-Not at all Not being able to stop or control worrying 0-Not al all Anxiety Pre-Screening Total (If >/= 3 additional questions will be reviewed) 0 Feeding: Bottle feeding problems: None Bladder: No dysuria, gross hematuria, urinary frequency, urinary urgency, or incontinence Bowel symptoms: Negative for abdominal discomfort, blood in stools or black stools and change in bowel habits Abdomen: N/A Bleeding: light flow Bottom and Perineum: No issues Sleep: no sleep concerns and sleeps in bassinet/crib in parent's room, feels rested Hilger since delivery: Not resumed Emotional support: Yes Exercise: N/A Other issues: None SENSITIVE EXAM: Sensitive exam not performed. PHYSICAL EXAMINATION: BP 104/60 Wt 75.1 kg (165 lb 9.6 oz) LMP 01/19/2024 No BMI 29.33 kg/m General: pleasant,female in no apparent distress, A&O x 3. Skin warm and intact. Breast: Deferred Abdomen: Deferred /Incision: N/A Pelvic: Deferred Bimanual: Deferred ASSESSMENT AND PLAN: 34 year old status post with normal course. Contraception plan: undecided . Reinforced 6-week pelvic rest. Encouraged condom usage should patient deviate. Education: resources provided - see MA/RN note Follow up: Return to Clinic for 6 week visit and as needed Spencer Cordova MD documented in this encounterSt. [facility] Discharge summary [facility] Medical Records Department [address] [address] Instructions for Home/Discharge Instructions 10/16/24 0855 MR#: [id number] Acct: [id number] Name: BRIT VELASQUEZ Rep #:[id number] : 1990 34 From: Gauri Hernandez DO PCP: TOSHIA Gallo Sta tus:ADM IN Discharge Instructions Diet Discharge Diet: No restrictions DC O2, CPAP, BIPAP needs Home O2 Discharge instructions: No Dressing / Incision Discharge Activity: May Drive and May Shower May resume sexual activity in: 6 weeks Weight Bearing Status: Weight bearing as tolerated Lifting Restrictions: nothing heavier than baby Dressing / Incision Call your doctor if you observe: Fever of 101 or Higher, Coldness, Increased Pain, Numbness or Tingling, Inability to urinate, Inability to have a bowel movement, Using more than 1 pad per hour, Shortness of breath, Dizziness, Swelling in the ankles, Chest pain, Increased palpitations (irregular hea rtbeat), Calf discomfort and Uncontrolled pain Cleanse incision/area with: Soap & Water Follow Up Care When: 1 week 6 weeks Test Results: Test results from this visit will be discussed in further detail at your follow- up appointment, if applicable. Discharge Plan Admission Admit Date/Time: 10/14/24 19:11 Attending Provider: Edilma Goncalves Primary Care Provider: Cindy Hernandez GREEN CHAINER Instructions Patient Instructions: After a Vaginal Delivery (WP) Discharge Orders/Prescriptions Prescriptions: Continued (DME) blood-glucose meter [FreeStyle Lite Meter] Kit See Rx Instructions .Route Rx Instructions: As directed PNV #[id number] acid-omega3 30 mg iron-10 mg iron-1 mg capsule 1 cap PO DAILY sertraline 100 mg tablet 100 mg PO QDAY Qty: 90 1RF ferrous sulfate 325 mg (65 mg iron) tablet 325 mg PO QDAY insulin lispro [Humalog KwikPen Insulin] 100 unit/mL insulin pen 8 unit subcut TID Qty: 15 5RF (DME) lancets [FreeStyle Lancets] 28 gauge misc See Dose Instructions .ROUTE .MEDSUPPLY Qty: 60 11RF Dose Instruction: As directed Rx Instructions: use to check BG bid (DME) pen needle, diabetic [BD Ultra-Fine Angie Pen Needle] 32 gauge x 5/32 needle See Rx Instructions .ROUTE .MEDSUPPLY Qty: 100 3RF Rx Instructions: daily metformin 1,000 mg tablet 1,000 mg PO BID Qty: 60 8RF insulin degludec [Tresiba FlexTouch U-100] 100 unit/mL (3 mL) insulin pen 20 unit subcut DAILY Qty: 18 0RF (DME) FreeStyle Vipin 3 Plus Sensor Device See Rx Instructions .Route Qty: 6 1RF Rx Instructions: As directed (DME) Dexcom G7 Sensor Device See Rx Instructions .Route Qty: 3 6RF Rx Instructions: As directed insulin aspart U-100 [Novolog FlexPen U-100 Insulin] 100 unit/mL (3 mL) insulin pen 5 unit subcut TID Qty: 15 1RF levothyroxine 125 mcg tablet 125 mcg PO .QD, 1.5 on Sunday Qty: 96 1RF Discontinued aspirin 81 mg tablet,delayed release (DR/EC) 81 mg PO QDAY Referrals / Follow Up: Cindy Hernandez NP, GREEN CHAINER-C [Primary Care Provider] - Disposition Disposition (needs filled in before D/C Order can be placed): Home, Self Care 10/16/24 0855Gauri Hernandez DO CC: GREEN CHAINER-C Cindy Hernandez ~ Signed [facility]03-20-2025 Discharge summary [facility] Note Date/Time October 16, 2024 5:2 5pm [facility] Medical Records Department [address] [place] [address] Instructions for Home/Discharge Instructions 10/16/24 0855 MR#: [id number] Acct: [id number] Name: BRIT VELASQUEZ Rep #:[id number] : 1990 34 From: Gauri Hernandez DO PCP: TOSHIA Gallo Sta tus:ADM IN Discharge Instructions Diet Discharge Diet: No restrictions DC O2, CPAP, BIPAP needs Home O2 Discharge instructions: No Dressing / Incision Discharge Activity: May Drive and May Shower May resume sexual activity in: 6 weeks Weight Bearing Status: Weight bearing as tolerated Lifting Restrictions: nothing heavier than baby Dressing / Incision Call your doctor if you observe: Fever of 101 or Higher, Coldness, Increased Pain, Numbness or Tingling, Inability to urinate, Inability to have a bowel movement, Using more than 1 pad per hour, Shortness of breath, Dizziness, Swelling in the ankles, Chest pain, Increased palpitations (irregular heartbeat), Calf discomfort and Uncontrolled pain Cleanse incision/area with: Soap & Water Follow Up Care When: 1 week 6 weeks Test Results: Test results from this visit will be discussed in further detail at your follow- up appointment, if applicable. Discharge Plan Admission Admit Date/Time: 10/14/24 19:11 Attending Provider: Edilma Goncalves Primary Care Provider: Cindy Hernandez GREEN CHAINER Instructions Patient Instructions: After a Vaginal Delivery (WP) Discharge Orders/Prescriptions Prescriptions: Continued (DME) blood-glucose meter [FreeStyle Lite Meter] Kit See Rx Instructions .Route Rx Instructions: As directed PNV #[id number] acid-omega3 30 mg iron-10 mg iron-1 mg capsule 1 cap PO DAILY sertraline 100 mg tablet 100 mg PO QDAY Qty: 90 1RF ferrous sulfate 325 mg (65 mg iron) tablet 325 mg PO QDAY insulin lispro [Humalog KwikPen Insulin] 100 unit/mL insulin pen 8 unit subcut TID Qty: 15 5RF (DME) lancets [FreeStyle Lancets] 28 gauge misc See Dose Instructions .ROUTE .MEDSUPPLY Qty: 60 11RF Dose Instruction: As directed Rx Instructions: use to check BG bid (DME) pen needle, diabetic [BD Ultra-Fine Angie Pen Needle] 32 gauge x 5/32 needle See Rx Instructions .ROUTE .MEDSUPPLY Qty: 100 3RF Rx Instructions: daily metformin 1,000 mg tablet 1,000 mg PO BID Qty: 60 8RF insulin degludec [Tresiba FlexTouch U-100] 100 unit/mL (3 mL) insulin pen 20 unit subcut DAILY Qty: 18 0RF (DME) FreeStyle Vipin 3 Plus Sensor Device See Rx Instructions .Route Qty: 6 1RF Rx Instructions: As directed (DME) Dexcom G7 Sensor Device See Rx Instructions .Route Qty: 3 6RF Rx Instructions: As directed insulin aspart U-100 [Novolog FlexPen U-100 Insulin] 100 unit/mL (3 mL) insulin pen 5 unit subcut TID Qty: 15 1RF levothyroxine 125 mcg tablet 125 mcg PO .QD, 1.5 on Sunday Qty: 96 1RF Discontinued aspirin 81 mg tablet,delayed release (DR/EC) 81 mg PO QDAY Referrals / Follow Up: Cindy Hernandez NP, GREEN CHAINER-C [Primary Care Provider] - Disposition Disposition (needs filled in before D/C Order can be placed): Home, Self Care 10/16/24 0855<Electronically signed by Gauri Hernandez DO>Gauri Hernandez DO CC: GREEN CHAINER-C Cindy Hernandez ~ Signed [facility] Work Phone: 1(543) 296-544503-20-2025 Progress note Author Gauri [facility] Note Date/Time October 16, 2024 8:5 3am [facility] Medical Records Department [address] [place] [address] Progress Note - OBGYN 10/16/24 0852 MR#: [id number] Acct: [id number] Name: BRIT VELASQUEZ Rep #:[id number] : 1990 34 From: Gauri Hernandez DO PCP: TOSHIA Gallo Sta tus:ADM IN Location: [place] [address]-1 Subjective Subjective Patient is doing well. Pain is well-controlled. Ambulating and voiding withoutdifficulty. Denies chest pain, shortness of breath, lightheadedness, dizziness,leg pain. She desires discharge today. Tolerating a diet without nausea or vomiting. Objective Data Objective Data Vital Signs: Vital Signs Temp Pulse Resp BP Pulse Ox O2 Del Method 97.6 F L 72 17 91/51 L 96 Room Air 10/16/24 04:45 10/16/24 04:48 10/16/24 04:45 10/16/24 04:48 10/16/24 04:48 10/16/24 04:45 Oxygen Delivery Method Room Air Weight: 182 lb Body Mass Index (BMI) 32.2 Intake & Output: Intake and Output for Last 24 Hours 10/14/24 10/15/24 10/16/24 23:59 23:59 23:59 Intake Total 1120.70 / 1120.70 2378.80 / 2378.80 Output Total 3660 / 3660 500 / 500 Balance 1120.70 / 1120.70 -1281.20 / -1281.20 -500 / -500 Lab / Micro Data 10/16/24 04:50 Labs: Laboratory Results - last 24 hr 10/15/24 11:10: POC Glucose 62 L 10/15/24 11:28: POC Glucose 62 L 10/15/24 11:47: POC Glucose 59 L 10/15/24 12:16: POC Glucose 64 L 10/15/24 12:52: POC Glucose 85 10/15/24 14:08: POC Glucose 88 10/16/24 04:50: WBC 9.6, RBC 3.00 L, Hgb 8.7 L, Hct 25.6 L, MCV 85.3, MCH 29.0, MCHC 34.0, RDW Std Deviation 41.3, RDW Coeff of Jose Antonio 13.4, Plt Count 127 L, MPV 10.0, Immature Gran % (Auto) 0.500, Neut % (Auto) 72.1 H, Lymph % (Auto) 20.3, Morris % (Auto) 6.0, Eos % (Auto) 0.7, Baso % (Auto) 0.4, Absolute Neuts (auto) 6.9, Absolute Lymphs (auto) 1.94, Nucleated RBC % 0 Physical Exam Const alert and no apparent distress General Appearance: comfortable HEENT normocephalic Resp normal respiratory effort GI soft to palpation and non-distended GI Narrative: ATTP, FF@U-1 Assessment & Plan (1) Second degree perineal laceration: (2) (spontaneous vaginal delivery): PLAN: Patient is day 1 from a vaginal delivery. She desires discharge to home. Discharge instructions reviewed. She has a 1 week follow-up scheduled. She has follow-up with endocrinology. (3) Diabetes mellitus during treated with insulin: (4) Type 1 diabetes mellitus with hyperglycemia: 10/16/24 0853 <Electronically signed by Gauri Hernandez DO> Cosigner Signature (if applicable): CC: ~ Signed [facility] Work Phone: 1(164) 843-736703-20-2025 Progress note [facility] Medical Records Department [address] [address] Progress Note - OBGYN 10/16/24 0852 MR#: [id number] Acct: [id number] Name: BRIT VELASQUEZ Rep #:[id number] : 1990 34 From: Gauri Hernandez DO PCP: Cindy Hernandez, TOSHIA Sta tus:ADM IN Location: [place] [address] Subjective Subjective Patient is doing well. Pain is well-controlled. Ambulating and voiding withoutdifficulty. Denies chest pain, shortness of breath, lightheadedness, dizziness,leg pain. She desires discharge today. Tolerating a diet without nausea or vomiting. Objective Data Objective Data Vital Signs: Vital Signs Temp Pulse Resp BP Pulse Ox O2 Del Method 97.6 F L 72 17 91/51 L 96 Room Air 10/16/24 04:45 10/16/24 04:48 10/16/24 04:45 10/16/24 04:48 10/16/24 04:48 10/16/24 04:45 Oxygen Delivery Method Room Air Weight: 182 lb Body Mass Index (BMI) 32.2 Intake & Output: Intake and Output for Last 24 Hours 10/14/24 10/15/24 10/16/24 23:59 23:59 23:59 Intake Total 1120.70 / 1120.70 2378.80 / 2378.80 Output Total 3660 / 3660 500 / 500 Balance 1120.70 / 1120.70 -1281.20 / -1281.20 -500 / -500 Lab / Micro Data 10/16/24 04:50 Labs: Laboratory Results - last 24 hr 10/15/24 11:10: POC Glucose 62 L 10/15/24 11:28: POC Glucose 62 L 10/15/24 11:47: POC Glucose 59 L 10/15/24 12:16: POC Glucose 64 L 10/15/24 12:52: POC Glucose 85 10/15/24 14:08: POC Glucose 88 10/16/24 04:50: WBC 9.6, RBC 3.00 L, Hgb 8.7 L, Hct 25.6 L, MCV 85.3, MCH 29.0, MCHC 34.0, RDW Std Deviation 41.3, RDW Coeff of Jose Antonio 13.4, Plt Count 127 L, MPV 10.0, Immature Gran % (Auto) 0.500, Neut% (Auto) 72.1 H, Lymph % (Auto) 20.3, Morris % (Auto) 6.0, Eos % (Auto) 0.7, Baso % (Auto) 0.4, Absolute Neuts (auto) 6.9, Absolute Lymphs (auto) 1.94, Nucleated RBC % 0 Physical Exam Const alert and no apparent distress General Appearance: comfortable HEENT normocephalic Resp normal respiratory effort GI soft to palpation and non-distended GI Narrative: ATTP, FF@U-1 Assessment & Plan (1) Second degree perineal laceration: (2) (spontaneous vaginal delivery): PLAN: Patient is day 1 from a vaginal delivery. She desires discharge to home. Dischargeinstructions reviewed. She has a 1 week follow-up scheduled. She has follow-up with endocrinology. (3) Diabetes mellitus during treated with insulin: (4) Type 1 diabetes mellitus with hyperglycemia: 10/16/24 0853 Cosigner Signature (if applicable): CC: ~ Signed [facility]03-19-2025 NoteHNO ID: [id number] Author: XANDER LOVE RN Service: ? Author Type: Registered Nurse Type: Progress Notes Filed: 10/15/2024 14:45 Note Text: Patient delivered via at [facility] on 10/15/24 per Edilma Goncalves M.D. . See OB Outcome note. [facility]ander [facility] History of Present illness Narrative* Xander Love RN - 10/15/2024 2:40 PM EDT Patient delivered via at [facility] on 10/15/24 per Edilma Goncalves M.D. . See OB Outcome note. Xander Love RN documented in this encounterSt. [facility] Procedure note [facility] Medical Records Department [address] [place] [address] OB Vaginal Delivery 10/15/24 1404 MR#: [id number] Acct: [id number] Name: BRIT VELASQUEZ Rep #:[id number] : 1990 34 From: Edilma Goncalves MD PCP: TOSHIA Gallo tus:ADM IN Location: [id number] Assessment & Plan (1) Diabetes mellitus during treated with insulin: PLAN: Decrease insulin levels, sees endocrinology. Continue can continuous glucose monitor (2) Type 1 diabetes mellitus with hyperglycemia: (3) (spontaneous vaginal delivery): (4) Single live : (5) Second degree perineal laceration: Maternal Data Information ORQUIDEA Calculator Estimated Delivery Date Method Current WG Current Estimate 10/25/24 Manual 38w 4d Final ORQUIDEA: 10/24/24 Gestational age: 38 4/7 Vaginal Delivery Maternal Presentation Maternal Presentation: Medically Indicated Induction Type of Induction: Pitocin, Drew Bulb and Amniotomy Vaginal Delivery Information Procedure Performed: Spontaneous Vaginal Delivery Surgeon/Practitioner: Edilma Goncalves Date of Procedure: 10/15/24 Pre-Procedure Diagnosis: Post-Procedure Diagnosis: same Type of anesthesia: Epidural Special Medications: none Estimated Blood Loss: 400 Time of Delivery: 13:38 Findings Description of procedure: A vigorous female infant was delivered NAFISA over a second-degree perineal laceration. The remainder the was delivered with maternal pushing and gentle traction only in less than 15 seconds. ThePitocin infusion was initiated for active management of the third stage. The cord was clamped and cut after cord pulsations ceased. The infant was attended to by the waiting nursing staff. The placenta was delivered spontaneously and intact. The cervixand vagina were intact. The second-degree perineal laceration was repaired with3-0 Vicryl suture in a running standard fashion. Sponge and needle counts were correct. A vaginal sweep was completed by me. Presentation: NAFISA Amniotic Membrane Rupture Type: Artificial Amniotic Fluid Description: Clear Placental Delivery Description: Spontaneous Placenta Disposition: [facility] Specimen collected: No Cord Vessel Description: 3 Vessels Cord Entanglement: None Infant A Gender: Female (Annmarie) (1 minute): 8 (5 minute): 9 Delayed Cord Clamping: Yes Television Agent meat grader: No Post Vaginal Deli Medications given after delivery: IV Pitocin Episiotomy Description: None Laceration: 2nd degree Complication Complications: No 03/19/25 1407 Cosigner Signature (if applicable): CC: TOSHIA Hernandez; Dr. Edilma Goncalves MD~ Signed [facility]03-19-2025 Progress note Author Edilma Goncalves [facility] Note Date/Time October 15, 2024 8:1 1am [facility] Medical Records Department [address] [address] Progress Note 10/15/24 0809 MR#: [id number] Acct: [id number] Name: BRIT VELASQUEZ Rep #:[id number] : 1990 34 From: Edilma Goncalves MD PCP: TOSHIA Gallo tus:ADM IN [facility] Note Patient comfortable with epidural. No new complaints. Physical Exam Narrative Awake alert, no acute distress Cervix 570-2 head well applied, artificial rupture membranes with return of moderate amount of clear fluid. Cervix is mid position and medium consistency and feels slightly edematous. Assessment & Plan Assessment/Plan (1) Diabetes mellitus during treated with insulin: PLAN: Continue Pitocin induction. Patient is comfortable with epidural. Estimated weight is less than 4500 g clinically and pelvis clinically adequate to expect vaginal delivery. heart tones are category 1 with normal baseline and acceleration. Patient's questions were answered to her satisfaction. (2) Type 1 diabetes mellitus with hyperglycemia: 10/15/24 0811 <Electronically signed by Edilma Goncalves MD> Edilma Goncalves MD Cosigner Signature (if applicable): CC: ~ Signed [facility] Work Phone: 1(445) 223-865003-19-2025 Progress note [facility] Medical Records Department [address] [place] [address] Progress Note 10/15/24 0809 MR#: [id number] Acct: [id number] Name: BRIT VELASQUEZ Rep #:[id number] : 1990 34 From: Edilma Goncalves MD PCP: TOSHIA Gallo tus:ADM IN [facility] Progress Note Patient comfortable with epidural. No new complaints. Physical Exam Narrative Awake alert, no acute distress Cervix 570-2 head well applied, artificial rupture membranes with return of moderate amount of clear fluid. Cervix is mid position and medium consistency and feels slightly edematous. Assessment & Plan Assessment/Plan (1) Diabetes mellitus during treated with insulin: PLAN: Continue Pitocin induction. Patient is comfortable with epidural. Estimated weight is less than 4500 g clinically and pelvis clinically adequate to expect vaginal delivery. heart tones are category 1 with normal baseline and acceleration. Patient's questions were answered to her sa tisfaction. (2) Type 1 diabetes mellitus with hyperglycemia: 10/15/24 0811 Edilma Goncalves MD Cosigner Signature (if applicable): CC: ~ Signed [facility]03-18-2025 History and physical note Author Spencer Cordova [facility] Note Date/Time October 14, 2024 7:5 2pm [facility] Medical Records Department [address] [place] [address] H&P Exam - CULINARY DIRECTOR 10/14/241925 MR#: [id number] Acct: [id number] Name: BRIT VELASQUEZ Rep #:[id number] : 1990 34 From: Spencer Cordova MD PCP: TOSHIA Gallo Sta tus:ADM IN [facility] HPI - General General Date of Admission: 10/14/24 Date of Service: 10/14/24 HPI Narrative BRIT VELASQUEZ, is a 34 F who presents for induction. Maternal Data Information ORQUIDEA Calculator Estimated Delivery Date Method Current WG Current Estimate 10/25/24 Manual 38w 3d PFSH PFS Medical History (Updated 10/14/24 @ 19:[address] Spencer Cordova MD) Elevated blood pressure reading Type 1 diabetes mellitus with hyperglycemia Heart murmur Palpitations Acne JOHN (generalized anxiety disorder) Vaginal bleeding between periods Hypotension PFO (patent foramen ovale) Hemiplegia affecting left nondominant side History of migraine Hx of hypercholesterolemia Diabetes mellitus Chronic migraine Former tobacco use History of alcohol abuse Vitamin D deficiency Hypothyroidism Mitral valve prolapse Hypoglycemia Hyperlipidemia Abnormal laboratory test Hyperglycemia, unspecified Graves disease Sleep apnea Polycystic ovarian disease Home Medications ?Medication ?Instructions ?Recorded ?Last Taken ?Type lancets 28 gauge (FreeStyle #60 ea 08/29/18 Unknown Rx Lancets) blood-glucose meter (FreeStyle 12/03/23 Unknown Histo ry Lite Meter kit) BD Ultra-Fine Angie Pen Needle 32 #100 ea 01/16/24 Unkn own Rx gauge x 5/32 (pen needle, diabetic) metformin 1,000 mg tablet 1,000 mg PO BID #60 tabs Unknown Rx aspirin 81 mg tablet,delayed 81 mg PO QDAY 04/07/24 Un known History release vitamin#30 30 mg iron-10 1 cap PO DAILY 04/07 Unknown History mg iron-folic acid 1 mg-omg3 capsule Tresiba FlexTouch U-100 100 20 unit (0.2 mL) subcut DA JOE #18 04/14/24 Unknown Rx unit/mL (3 mL) subcutaneous pen mL (insulin degludec) blood-glucose sensor (FreeStyle #6 ea 05/26/24 Unknown Rx Vipin 3 Plus Sensor device) sertraline 100 mg tablet 100 mg PO QDAY #90 tabs 06/29 01/20 Unknown Rx Dexcom G7 Sensor (blood-glucose #3 ea 07/17/24 Unknown Rx sensor) insulin aspart U-100 100 unit/mL 5 unit (0.05 mL) subc ut TID #15 mL 08/25/24 Unknown Rx (3 mL) subcutaneous pen (Novolog FlexPen U-100 Insulin aspart) ferrous sulfate 325 mg (65 mg 325 mg PO QDAY 09/08/24 Unknown History iron) tablet insulin lispro 100 unit/mL 8 unit (0.08 mL) subcut TID #15 mL 09/08/24 Unknown Rx subcutaneous pen (Humalog KwikPen (U-100) Insulin) levothyroxine 125 mcg tablet 125 mcg PO .QD, 1.5 on dn10/03/24 Unknown Rx #96 tabs Allergy/AdvReac Type Severity Reaction Status Date / Time adhesive (adhesives) Allergy Intermediate Rash Verified 09/08/24 09:58 Family History Father Hypertension High cholesterol Mother Alcoholism Grandmother Arthritis Grandfather Cancer Surgical History Hx of thyroidectomy Social History household members: significant other Smoking Status: Former smoker quit date: 07/30/16 Tobacco: How many years used: 9 Electronic Cigarette Use: not used how long ago did patient quit smoking: Quit 6-7 years prior, smoked 1 ppd sinceteen until quit. second hand exposure: No alcohol intake: former details: Former heavy drinker, sober 6-7 years. substance use type: former substance user Date of last use: Jun 2023 used medical marijuana caffeine: No what type of physical activity do you participate in: walking, running, bicycling and weight training frequency: 3-4 times per week seatbelt use: always NST FHR Rate Baby A Baseline: 135 Variability:: Moderate Accelerations:: 15 x 15 Decelerations:: None Uterine Activity:: Irritability Physical Exam Const alert, oriented x3 and no apparent distress GI soft to palpation, non-tender and non-distended Inspection: gravid external exam normal Narrative: cvx - 1/60/-3, intracervical drew placed Labs Labs Labs: Hct 42.9 % (37-47) Hgb 14.3 g/dL (12.0-15.0) Hep Bs Antigen Negative (Negative) Hepatitis C Ab (EIA) <0.1 s/co ratio (0.0-0.9) Chlamydia DNA (VENUS) Negative (Negative) N.gonorrhoeae DNA (VENUS) Negative (Negative) HIV 1&2 Antibody Non-Reactive (Nonreactive) Miscellaneous Test Assessment & Plan (1) Diabetes mellitus during treated with insulin: PLAN: Plan Admit to L&D Induction - s/p drew placement. Will start pitocin. GBS negative. Pain - epidural as desired. EFW - less than 4500g and patient with adequate pelvis. DM on insulin - management per diabetic protocol. Patient took Tresiba (long acting insulin) before arriving. 10/14/241951 <Electronically signed by Spencer Cordova MD> Cosigner Signature (if applicable): CC: GREEN CHAINERPhylicia Hernandez; Dr. Spencer Cordova MD~ Signed [facility] Work Phone: 1(575) 465-919103-18-2025 History and physical note [facility] Medical Records Department [address] [place] [address] H&P Exam - CULINARY DIRECTOR 10/14/241925 MR#: [id number] Acct: [id number] Name: BRIT VELASQUEZ Rep #:[id number] : 1990 34 From: Spencer Cordova MD PCP: TOSHIA Gallo tus:ADM IN Location: [place] [address]-1 HPI - General General Date of Admission: 10/14/24 Date of Service: 10/14/24 HPI Narrative BRIT VELASQUEZ, is a 34 F who presents for induction. Maternal Data Information ORQUIDEA Calculator Estimated Delivery Date Method Current WG Current Estimate 10/25/24 Manual 38w 3d PFSH [facility] Medical History (Updated 10/14/24 @ 19:[address] Spencer Cordova MD) Elevated blood pressure reading Type 1 diabetes mellitus with hyperglycemia Heart murmur Palpitations Acne JOHN (generalized anxiety disorder) Vaginal bleeding between periods Hypotension PFO (patent foramen ovale) Hemiplegia affecting left nondominant side History of migraine Hx of hypercholesterolemia Diabetes mellitus Chronic migraine Former tobacco use History of alcohol abuse Vitamin D deficiency Hypothyroidism Mitral valve prolapse Hypoglycemia Hyperlipidemia Abnormal laboratory test Hyperglycemia, unspecified Graves disease Sleep apnea Polycystic ovarian disease Home Medications ?Medication ?Instructions ?Recorded ?Last Taken ?Type lancets 28 gauge (FreeStyle #60 ea 08/29/18 Unknown Rx Lancets) blood-glucose meter (FreeStyle 12/03/23 Unknown Histo ry Lite Meter kit) BD Ultra-Fine Angie Pen Needle 32 #100 ea 01/16/24 Unkn own Rx gauge x 5/32 (pen needle, diabetic) metformin 1,000 mg tablet 1,000 mg PO BID #60 tabs Unknown Rx aspirin 81 mg tablet,delayed 81 mg PO QDAY 04/07/24 Un known History release vitamin#30 30 mg iron-10 1 cap PO DAILY 04/07 Unknown History mg iron-folic acid 1 mg-omg3 capsule Tresiba FlexTouch U-100 100 20 unit (0.2 mL) subcut DA JOE #18 04/14/24 Unknown Rx unit/mL (3 mL) subcutaneous pen mL (insulin degludec) blood-glucose sensor (FreeStyle #6 ea 10/28/24 Unknown Rx Vipin 3 Plus Sensor device) sertraline 100 mg tablet 100 mg PO QDAY #90 tabs 06/29 01/20 Unknown Rx Dexcom G7 Sensor (blood-glucose #3 ea 07/17/24 Unknown Rx sensor) insulin aspart U-100 100 unit/mL 5 unit (0.05 mL) subc ut TID #15 mL 08/25/24 Unknown Rx (3 mL) subcutaneous pen (Novolog FlexPen U-100 Insulin aspart) ferrous sulfate 325 mg (65 mg 325 mg PO QDAY 09/08/24 Unknown History iron) tablet insulin lispro 100 unit/mL 8 unit (0.08 mL) subcut TID #15 mL 09/08/24 Unknown Rx subcutaneous pen (Humalog KwikPen (U-100) Insulin) levothyroxine 125 mcg tablet 125 mcg PO .QD, 1.5 on 10/03/24 Unknown Rx #96 tabs Allergy/AdvReac Type Severity Reaction Status Date / Time adhesive (adhesives) Allergy Intermediate Rash Verified 09/08/24 09:58 Family History Father Hypertension High cholesterol Mother Alcoholism Grandmother Arthritis Grandfather Cancer Surgical History Hx of thyroidectomy Social History household members: significant other Smoking Status: Former smoker quit date: 07/30/16 Tobacco: How many years used: 9 Electronic Cigarette Use: not used how long ago did patient quit smoking: Quit 6-7 years prior, smoked 1 ppd sinceteen until quit. second hand exposure: No alcohol intake: former details: Former heavy drinker, sober 6-7 years. substance use type: former substance user Date of last use: Jun 2023 used medical marijuana caffeine: No what type of physical activity do you participate in: walking, running, bicycling and weight training frequency: 3-4 times per week seatbelt use: always NST FHR Rate Baby A Baseline: 135 Variability:: Moderate Accelerations:: 15 x 15 Decelerations:: None Uterine Activity:: Irritability Physical Exam Const alert, oriented x3 and no apparent distress GI soft to palpation, non-tender and non-distended Inspection: gravid external exam normal Narrative: cvx - 60/-3, intracervical drew placed Labs Labs Labs: Hct 42.9 % (37-47) Hgb 14.3 g/dL (12.0-15.0) Hep Bs Antigen Negative (Negative) Hepatitis C Ab (EIA) <0.1 s/co ratio (0.0-0.9) Chlamydia DNA (VENUS) Negative (Negative) N.gonorrhoeae DNA (VENUS) Negative (Negative) HIV 1&2 Antibody Non-Reactive (Nonreactive) Miscellaneous Test Assessment & Plan (1) Diabetes mellitus during treated with insulin: PLAN: Plan Admit to L&D Induction - s/p drew placement. Will start pitocin. GBS negative. Pain - epidural as desired. EFW - less than 4500g and patient with adequate pelvis. DM on insulin - management per diabetic protocol. Patient took Tresiba (long acting insulin) beforearriving. 10/14/241951 Cosigner Signature (if applicable): CC: GREEN CHAINERPhylicia Hernandez; Dr. Spencer Cordova MD~ Signed [facility]03-14-2025 NoteHNO ID: [id number] Author: EDILMA GONCALVES MD Service: ? Author Type: Physician Type: Progress Notes Filed: 10/10/2024 14:00 Note Text: NST SUMMARY PROVIDER ASSESSMENT AND INTERPRETATION Brit Velasquez is a 34 year old female, , who is at 37w6d with an ORQUIDEA of 10/25/2024, by Last Menstrual Period dating method. Indications for NST: Other: type I Dm Baseline: 150 Variability: Moderate Accelerations: Present 15 X 15 Decelerations: None Contractions: TOCO: Irregular Interpretation: Reactive SIGNATURE: Edilma Goncalves [facility]03-14-2025 History of Present illness Narrative* Edilma Goncalves MD - 10/10/2024 1:35 PM EDT NST SUMMARY PROVIDER ASSESSMENT AND INTERPRETATION Brit Velasquez is a 34 year old female, , who is at 37w6d with an ORQUIDEA of 10/25/2024, by Last Menstrual Period dating method. Indications for NST: Other: type I Dm Baseline: 150 Variability: Moderate Accelerations: Present 15 X 15 Decelerations: None Contractions: TOCO: Irregular Interpretation: Reactive SIGNATURE: Edilma Goncalves MD documented in [facility] encounter[facility] Progress note* Quick Notes - Edilma Goncalves MD - 10/10/2024 1:34 PM EDT RR- VB No. LOF No. CTXS irreg . Movement: present. Other c/o: maybe lost mucous plug after last cervical exam Medication list reviewed. SENSITIVE EXAM: The sensitive examination was discussed with the Patient or Patient's Authorized Bog Cutter. As applicable, any other physician, advance practice provider, medical student, or other health professional student that will be observing or involved in the sensitive examination for educational or training purposes was discussed with the Patient or Authorized Bog Cutter. The Patient or Authorized Bog Cutter has agreed to proceed with the sensitive examination. (Sensitive examination includes inspection and/or palpation of the breasts, pelvis, prostate and anorectal regions). Physical Exam See Flow Sheet Abd: soft, nontender, gravid Ext: edema: Trace A/P 37w6d Estimated Date of Delivery: 10/25/24 Assessment & Plan Preexisting diabetes complicating , antepartum Orders: URINE OB DIP B/O Hypothyroidism, unspecified type Orders: URINE OB DIP B/O Supervision of high risk in third trimester Orders: URINE OB DIP B/O 37 weeks gestation of Orders: URINE OB DIP B/O Has induction scheduled up to date on growth scans reports BS stable kick counts. induction next week 38+ weeks Edilma Goncalves M.D. [facility]03-14-2025 Miscellaneous Notes* Quick Notes - Edilma Goncalves MD - 10/10/2024 1:34 PM EDT RR- VB No. LOF No. CTXS irreg . Movement: present. Other c/o: maybe lost mucous plug after last cervical exam Medication list reviewed. SENSITIVE EXAM: The sensitive examination was discussed with the Patient or Patient's Authorized Bog Cutter. As applicable, any other physician, advance practice provider, medical student, or other health professional student that will be observing or involved in the sensitive examination for educational or training purposes was discussed with the Patient or Authorized Bog Cutter. The Patient or Authorized Bog Cutter has agreed to proceed with the sensitive examination. (Sensitive examination includes inspection and/or palpation of the breasts, pelvis, prostate and anorectal regions). Physical Exam See Flow Sheet Abd: soft, nontender, gravid Ext: edema: Trace A/P 37w6d Estimated Date of Delivery: 10/25/24 Assessment & Plan Preexisting diabetes complicating , antepartum Orders: URINE OB DIP B/O Hypothyroidism, unspecified type Orders: URINE OB DIP B/O Supervision of high risk in third trimester Orders: URINE OB DIP B/O 37 weeks gestation of Orders: URINE OB DIP B/O Has induction scheduled up to date on growth scans reports BS stable kick counts. induction next week 38+ weeks Edilma Goncalves M.D. documented in this encounterSt. [facility]03-14-2025 Instructions* Patient Instructions* Molly Pena MA - 10/10/2024 1:18 PM EDT SEQUENTIAL SCREENINGS [facility] offers sequential screenings for women who are interested in screenings for chromosomal abnormalities and certain defects during a . The sequential screen combinesultrasound and blood tests to determine the risk of chromosomal abnormalities, including Down's Syndrome (Trisomy 21) and Trisomy 18, as well as open neural tube defects including spina bifida. Ultrasound examination is performed between 11 weeks and 13 weeks gestational age. Blood tests are drawn after the ultrasound and again later in the between 15 and 21 weeks gestational age. Please let your physician know if you are interested in this testing. It will require an appointment withour brain wave technician. This is not an ultrasound performed by a physician in our office during a routine visit. SIGNS AND SYMPTOMS OF LABOR 1. Contractions every 10 minutes or more often 2. Clear, pink, or brownish fluid (water) leaking from vagina 3. Feeling that baby is pushing down, pressure 4. Low, dull backache 5. Cramps that feel like a period 6. Cramps with or without diarrhea If you notice any of the above symptoms, contact our office at [phone] and ask to speak with anurse. After hours, you can call doctors registry at [phone] OR call [facility] at [phone] ask to have the doctor certified professional ergonomist paged. If you consider this an emergency, dial [phone] or go to your nearest emergency department. NEED HELP? Are you dealing with a violent or abusive relationship? Are you a victim of rape or sexual assult? Call [facility] ([place]) 24 hour Crisis Hotline: 707.895.7616 or 136-183-5227. MANUAL Your Guide to a Healthy manual is now on-line. Visit [email or web address] to download your free copy documented in this encounterSt. [facility]03-[facility]-2025 Note Indication Evaluation of well-being Diabetes mellitus, Hypothyroidism Impression REMOTE READ - Single, live, intrauterine . - The amniotic fluid volume is normal amount with an MVP of 4.4 cm and an RIMA of 13.1 cm. - The placenta is posterior, fundal. - BPP 8/8. Recommendations Continue planned testing Maternal Assessment Height 160 cm Height (ft) 5 ft Height (in) 3 in Physical Exam Initial weight (lb) 153 lb Initial BMI 27.10 kg/m Maternal assessment other: 2 Para 0 Growth Overview Exam date GA BPD (mm) HC (mm) AC (mm) FL (mm) HL (mm) EFW (g) 06/03/2024 19w 3d 39.4 5% 146.9 8% 134.5 28% 28.9 44% 27.4 27% 252 12% 07/03/2024 23w 5d 53.2 4% 200.5 13% 186.5 32% 39.4 27% 550 14% 07/31/2024 27w 5d 65.7 8% 240 9% 231.4 35% 52.3 67% 1067 26% 08/29/2024 31w 6d 74.7 4% 281.6 16% 273.2 34% 57.8 17% 1669 16% 09/23/2024 35w 3d 82.3 5% 309.2 21% 323.7 81% 66.8 41% 2662 47% Method Transabdominal ultrasound examination Dave . Number of fetuses: 1 Dating LMP on: 01/19/2024 GA by LMP 37 w + 2 d ORQUIDEA by LMP: 10/25/2024 GA by prior assessment 37 w + 2 d ORQUIDEA by prior assessment: 10/25/2024 Assigned: based on stated ORQUIDEA, selected on 2024 Assigned GA 37 w + 2 d Assigned ORQUIDEA: 10/25/2024 General Evaluation Cardiac activity present. FHR 140 bpm. movements: present. Presentation: cephalic Placenta: Placental site: posterior, fundal Umbilical cord: Cord vessels: 3 vessel cord Amniotic Fluid Assessment Amount of AF: normal amount MVP 4.4 cm. RIMA 13.1 cm. Q1 4.4 cm, Q2 3.8 cm, Q3 3.4 cm, Q4 1.5 cm Biophysical Profile 2: breathing movements 2: Gross body movements 2: tone 2: Amniotic fluid volume 8/8 Biophysical profile score Anatomy sex: female. Performed By: Polina Castillo RDMS, RVT Read By: Miah Connors M.D.MATERNAL [id number] Progress note* Quick Notes - Spencer Cordova MD - 10/03/2024 10:00 AM EST KJ - S: Brit denies LOF, contractions or vaginal bleeding O: 36w6d, see flow sheet SENSITIVE EXAM: The sensitive examination was discussed with the Patient or Patient's Authorized Bog Cutter. As applicable, any other physician, advance practice provider, medical student, or other health professional student that will be observing or involved in the sensitive examination for educational or training purposes was discussed with the Patient or Authorized Bog Cutter. The Patient or Authorized Bog Cutter has agreed to proceed with the sensitive examination. (Sensitive examination includes inspection and/or palpation of the breasts, pelvis, prostate and anorectal regions). A/P: Assessment & Plan 36 weeks gestation of Orders: URINE OB DIP B/O Insulin controlled gestational diabetes mellitus (GDM) in third trimester Continue insulin and management per endocrinology. Induction of labor scheduled for 38+wks (10/13pm). Informed consent signed after discussing R/B/A. Hypothyroidism, unspecified type Antepartum anemia complicating in third trimester Reviewed labor & FM precautions. Spencer Cordova MD [facility]03-07-2025 Miscellaneous Notes* Quick Notes - Spencer Cordova MD - 10/03/2024 10:00 AM EST KJ - S: Brit denies LOF, contractions or vaginal bleeding O: 36w6d, see flow sheet SENSITIVE EXAM: The sensitive examination was discussed with the Patient or Patient's Authorized Bog Cutter. As applicable, any other physician, advance practice provider, medical student, or other health professional student that will be observing or involved in the sensitive examination for educational or training purposes was discussed with the Patient or Authorized Bog Cutter. The Patient or Authorized Bog Cutter has agreed to proceed with the sensitive examination. (Sensitive examination includes inspection and/or palpation of the breasts, pelvis, prostate and anorectal regions). A/P: Assessment & Plan 36 weeks gestation of Orders: URINE OB DIP B/O Insulin controlled gestational diabetes mellitus (GDM) in third trimester Continue insulin and management per endocrinology. Induction of labor scheduled for 38+wks (3pm). Informed consent signed after discussing R/B/A. Hypothyroidism, unspecified type Antepartum anemia complicating in third trimester Reviewed labor & FM precautions. Spencer Cordova MD documented in this encounterSt. [facility]03-[facility]-2025 Instructions* Patient Instructions* Alessandra Sanders LPN - 10/03/2024 8:56 AM EST SEQUENTIAL SCREENINGS The [facility] offers sequential screenings for women who are interested in screenings for chromosomal abnormalities and certain defects during a . The sequential screen combinesultrasound and blood tests to determine the risk of chromosomal abnormalities, including Down's Syndrome (Trisomy 21) and Trisomy 18, as well as open neural tube defects including spina bifida. Ultrasound examination is performed between 11 weeks and 13 weeks gestational age. Blood tests are drawn after the ultrasound and again later in the between 15 and 21 weeks gestational age. Please let your physician know if you are interested in this testing. It will require an appointment withour brain wave technician. This is not an ultrasound performed by a physician in our office during a routine visit. SIGNS AND SYMPTOMS OF LABOR 1. Contractions every 10 minutes or more often 2. Clear, pink, or brownish fluid (water) leaking from vagina 3. Feeling that baby is pushing down, pressure 4. Low, dull backache 5. Cramps that feel like a period 6. Cramps with or without diarrhea If you notice any of the above symptoms, contact our office at [phone] and ask to speak with anurse. After hours, you can call doctors registry at [phone] OR call [facility] at [phone] ask to have the doctor certified professional ergonomist paged. If you consider this an emergency, dial 91-8 or go to your nearest emergency department. NEED HELP? Are you dealing with a violent or abusive relationship? Are you a victim of rape or sexual assult? Call [facility] ([place]) 24 hour Crisis Hotline: 915.272.8635 or 415-326-1070. MANUAL Your Guide to a Healthy manual is now on-line. Visit [email or web address] to download your free copy documented in this encounterSt. [facility] Note Indication Evaluation of well-being. Diabetes mellitus, Hypothyroidism. Impression - Single, live, intrauterine . - The amniotic fluid volume is normal amount with an MVP of 4.2 cm and an RIMA of 13.5 cm. - The placenta is anterior. - BPP 03/06. Recommendations Continue planned testing Maternal Assessment Height 160 cm Height (ft) 5 ft Height (in) 3 in Physical Exam Initial weight (lb) 153 lb Initial BMI 27.10 kg/m Maternal assessment other: 2 Para 0 Growth Overview Exam date GA BPD (mm) HC (mm) AC (mm) FL (mm) HL (mm) EFW (g) 06/03/2024 19w 3d 39.4 5% 146.9 8% 134.5 28% 28.9 44% 27.4 27% 252 12% 07/03/2024 23w 5d 53.2 4% 200.5 13% 186.5 32% 39.4 27% 550 14% 07/31/2024 27w 5d 65.7 8% 240 9% 231.4 35% 52.3 67% 1067 26% 08/29/2024 31w 6d 74.7 4% 281.6 16% 273.2 34% 57.8 17% 1669 16% 09/23/2024 35w 3d 82.3 5% 309.2 21% 323.7 81% 66.8 41% 2662 47% Method Transabdominal ultrasound examination. View: Adequate visualization Dave . Number of fetuses: 1 Dating LMP on: 01/19/2024 GA by LMP 36 w + 3 d ORQUIDEA by LMP: 10/25/2024 GA by prior assessment 36 w + 3 d ORQUIDEA by prior assessment: 10/25/2024 Assigned: based on stated ORQUIDEA, selected on 08/29/2024 Assigned GA 36 w + 3 d Assigned ORQUIDEA: 10/25/2024 General Evaluation Cardiac activity present. FHR 150 bpm. movements: present. Presentation: cephalic Placenta: Placental site: anterior Umbilical cord: Cord vessels: 3 vessel cord Amniotic Fluid Assessment Amount of AF: normal amount MVP 4.2 cm. RIMA 13.5 cm. Q1 4.0 cm, Q2 4.2 cm, Q3 3.1 cm, Q4 2.2 cm Biophysical Profile 2: breathing movements 2: Gross body movements 2: tone 2: Amniotic fluid volume 8/8 Biophysical profile score Anatomy Heart / Thorax Situs: situs solitus (normal) Stomach: normal Kidneys: normal Bladder: normal sex: female Wants to know sex: yes Performed By: Sydni Lemon RDMS Read By: Miah Connors M.D.MATERNAL [id number] Progress note* Quick Notes - Spencer Cordova MD - 09/26/2024 9:24 AM EST KJ - S: Brit denies LOF, contractions or vaginal bleeding. O: 35w6d, see flow sheet SENSITIVE EXAM: The sensitive examination was discussed with the Patient or Patient's Authorized Bog Cutter. As applicable, any other physician, advance practice provider, medical student, or other health professional student that will be observing or involved in the sensitive examination for educational or training purposes was discussed with the Patient or Authorized Bog Cutter. The Patient or Authorized Bog Cutter has agreed to proceed with the sensitive examination. (Sensitive examination includes inspection and/or palpation of the breasts, pelvis, prostate and anorectal regions). A/P: Assessment & Plan 35 weeks gestation of Orders: URINE OB DIP B/O GROUP B STREPTOCOCCUS BY PCR, ROUTINE SCREENING Preexisting diabetes complicating , antepartum Orders: URINE OB DIP B/O Blood sugars well controlled and managed by endocrinology. Supervision of high risk in third trimester Orders: URINE OB DIP B/O Anemia complicating , third trimester Orders: URINE OB DIP B/O Discussed induction at 38+ weeks Ordered vag/rectal GBS culture Spencer Cordova MD [facility] Miscellaneous Notes* Quick Notes - Spencer Cordova MD - 09/26/2024 9:24 AM EST KJ - S: Brit denies LOF, contractions or vaginal bleeding. O: 35w6d, see flow sheet SENSITIVE EXAM: The sensitive examination was discussed with the Patient or Patient's Authorized Bog Cutter. As applicable, any other physician, advance practice provider, medical student, or other health professional student that will be observing or involved in the sensitive examination for educational or training purposes was discussed with the Patient or Authorized Bog Cutter. The Patient or Authorized Bog Cutter has agreed to proceed with the sensitive examination. (Sensitive examination includes inspection and/or palpation of the breasts, pelvis, prostate and anorectal regions). A/P: Assessment & Plan 35 weeks gestation of Orders: URINE OB DIP B/O GROUP B STREPTOCOCCUS BY PCR, ROUTINE SCREENING Preexisting diabetes complicating , antepartum Orders: URINE OB DIP B/O Blood sugars well controlled and managed by endocrinology. Supervision of high risk in third trimester Orders: URINE OB DIP B/O Anemia complicating , third trimester Orders: URINE OB DIP B/O Discussed induction at 38+ weeks Ordered vag/rectal GBS culture Spencer Cordova MD documented in this encounterSt. Rita'S [facility]02-28-2025 NoteHNO ID: [id number] Author: SPENCER CORDOVA MD Service: ? Author Type: Physician Type: Progress Notes Filed: 09/26/2024 10:42 Note Text: NST SUMMARY PROVIDER ASSESSMENT AND INTERPRETATION Brit Velasquez is a 33 year old female, , who is at 35w6d with an ORQUIDEA of 10/25/2024, by Last Menstrual Period dating method. Indications for NST: Diabetes - Insulin Controlled Baseline: 150 Variability: Moderate Accelerations: Present 15 X 15 Decelerations: None Contractions: TOCO: None Interpretation: Reactive SIGNATURE: Spencer Cordova [facility]02-28-2025 History of Present illness Narrative* Spencer Cordova MD - 09/26/2024 9:22 AM EST NST SUMMARY PROVIDER ASSESSMENT AND INTERPRETATION Brit Velasquez is a 33 year old female, , who is at 35w6d with an ORQUIDEA of 10/25/2024, by Last Menstrual Period dating method. Indications for NST: Diabetes - Insulin Controlled Baseline: 150 Variability: Moderate Accelerations: Present 15 X 15 Decelerations: None Contractions: TOCO: None Interpretation: Reactive SIGNATURE: Spencer Cordova MD documented in this encounterSt. Rita'S [facility]02-28-2025 Instructions* Patient Instructions* Molly Pena MA - 09/26/2024 8:46 AM EST SEQUENTIAL SCREENINGS The [facility] offers sequential screenings for women who are interested in screenings for chromosomal abnormalities and certain defects during a . The sequential screen combinesultrasound and blood tests to determine the risk of chromosomal abnormalities, including Down's Syndrome (Trisomy 21) and Trisomy 18, as well as open neural tube defects including spina bifida. Ultrasound examination is performed between 11 weeks and 13 weeks gestational age. Blood tests are drawn after the ultrasound and again later in the between 15 and 21 weeks gestational age. Please let your physician know if you are interested in this testing. It will require an appointment withour brain wave technician. This is not an ultrasound performed by a physician in our office during a routine visit. SIGNS AND SYMPTOMS OF LABOR 1. Contractions every 10 minutes or more often 2. Clear, pink, or brownish fluid (water) leaking from vagina 3. Feeling that baby is pushing down, pressure 4. Low, dull backache 5. Cramps that feel like a period 6. Cramps with or without diarrhea If you notice any of the above symptoms, contact our office at [phone] and ask to speak with anurse. After hours, you can call doctors registry at [phone] OR call [facility] at [phone] ask to have the doctor certified professional ergonomist paged. If you consider this an emergency, dial 7-2-3 or go to your nearest emergency department. NEED HELP? Are you dealing with a violent or abusive relationship? Are you a victim of rape or sexual assult? Call [facility] ([place]) 24 hour Crisis Hotline: 592.583.8433 or 605-689-4271. MANUAL Your Guide to a Healthy manual is now on-line. Visit [email or web address] to download your free copy documented in this encounterSt. Rita'S Hospital02-25-2025 Note Indication Evaluation of well-being. Diabetes mellitus, Hypothyroidism. Evaluation of growth Impression REMOTE READ - Single, live, intrauterine . - The biometry is consistent with the assigned gestational dating. - The EFW is 2662 g, at the 47%. AC is at the 81%. - The amniotic fluid volume is normal amount with an MVP of 5 cm and an RIMA of 16.9 cm. - The placenta is anterior, fundal. - BPP 03/06. - No malformations visualized on a limited survey as detailed below. Recommendations Continue planned surveillance Maternal Assessment Height 160 cm Height (ft) 5 ft Height (in) 3 in Physical Exam Initial weight (lb) 153 lb Initial BMI 27.10 kg/m Method Transabdominal ultrasound examination Dave . Number of fetuses: 1 Dating LMP on: 01/19/2024 GA by LMP 35 w + 3 d ORQUIDEA by LMP: 10/25/2024 GA by prior assessment 35 w + 3 d ORQUIDEA by prior assessment: 10/25/2024 Ultrasound examination on: 09/23/2024 GA by U/S based upon: AC, BPD, Femur, HC GA by U/S 34 w + 2 d ORQUIDEA by U/S: 11/02/2024 Assigned: based on stated ORQUIDEA, selected on 08/29/2024 Assigned GA 35 w + 3 d Assigned ORQUIDEA: 10/25/2024 General Evaluation Cardiac activity present. FHR 157 bpm. movements: present. Presentation: cephalic Placenta: Placental site: anterior, fundal Umbilical cord: Cord vessels: 3 vessel cord. Insertion site: normal insertion Amniotic fluid: Amount of AF: normal amount. MVP 5.0 cm. RIMA 16.9 cm. Q1 3.1 cm, Q2 5.0 cm, Q3 4.0 cm, Q4 4.9 cm Biophysical Profile 2: breathing movements 2: Gross body movements 2: tone 2: Amniotic fluid volume 03/06 Biophysical profile score Growth Overview Exam date GA BPD (mm) HC (mm) AC (mm) FL (mm) HL (mm) EFW (g) 06/03/2024 19w 3d 39.4 5% 146.9 8% 134.5 28% 28.9 44% 27.4 27% 252 12% 07/03/2024 23w 5d 53.2 4% 200.5 13% 186.5 32% 39.4 27% 550 14% 07/31/2024 27w 5d 65.7 8% 240 9% 231.4 35% 52.3 67% 1067 26% 08/29/2024 31w 6d 74.7 4% 281.6 16% 273.2 34% 57.8 17% 1669 16% 09/23/2024 35w 3d 82.3 5% 309.2 21% 323.7 81% 66.8 41% 2662 47% Biometry Standard BPD 82.3 mm 33w 1d 5% Hadlock OFD 111.8 mm 33w 6d 39% Nicolaides HC 309.2 mm 33w 4d 21% Price AC 323.7 mm 36w 2d 81% Hadlock Femur 66.8 mm 34w 0d 41% Price EFW 2,662 g 35w 2d 47% Hadlock EFW (lb) 5 lb EFW (oz) 14 oz EFW by: Hadlock (HC-AC-FL) Extended Licensed Marriage And Family Therapist 3.2 mm Extremities / Bony Struc FL / HC 0.22 Other Structures FHR 157 bpm Anatomy Lateral ventricles: normal Cavum septi pellucidi: normal Cerebellum: normal Cisterna magna: normal 4-chamber view: normal RVOT view: normal LVOT view: normal 3-vessel view: normal Heart / Thorax Situs: situs solitus (normal) Diaphragm: normal Stomach: normal Kidneys: normal Bladder: normal sex: female Wants to know sex: yes Performed By: Megha Pete RDMS Read By: Miah Connors M.D.MATERNAL [id number] Progress note* Quick Notes - Anna Bray MD - 09/19/2024 1:46 PM EST S: Brit Velasquez is a 33 year old female who presents at 10/25/2024, by Last Menstrual Period for aroutine visit. Denies headache, visual changes, chest pain, shortness of breath, vaginal bleeding, leakage of fluid, or dysuria. Feeling well, no complaints. Good movement, No contractions O: See flow sheet Gen: No apparent distress Abd: Gravid, nontender NST Reactive Baseline 155. Had caffeine before appointment ASSESSMENT/PLAN: 1. Supervision of high risk in third trimester - ICD9: V23.9, ICD10: O09.93 (primary diagnosis) - URINE OB DIP B/O 2. Preexisting diabetes complicating , antepartum - ICD9: 648.03, 250.00, ICD10: O24.319 - Controlled 2 x week testing - URINE OB DIP B/O 3. 34 weeks gestation of - ICD9: V22.2, ICD10: Z3A.34 - URINE OB DIP B/O Anna Bray MD [facility]02-[facility] Miscellaneous Notes* Quick Notes - Anna Bray MD - 09/19/2024 1:46 PM EST S: Brit Velasquez is a 33 year old female who presents at 10/25/2024, by Last Menstrual Period for aroutine visit. Denies headache, visual changes, chest pain, shortness of breath, vaginal bleeding, leakage of fluid, or dysuria. Feeling well, no complaints. Good movement, No contractions O: See flow sheet Gen: No apparent distress Abd: Gravid, nontender NST Reactive Baseline 155. Had caffeine before appointment ASSESSMENT/PLAN: 1. Supervision of high risk in third trimester - ICD9: V23.9, ICD10: O09.93 (primary diagnosis) - URINE OB DIP B/O 2. Preexisting diabetes complicating , antepartum - ICD9: 648.03, 250.00, ICD10: O24.319 - Controlled 2 x week testing - URINE OB DIP B/O 3. 34 weeks gestation of - ICD9: V22.2, ICD10: Z3A.34 - URINE OB DIP B/O Anna Bray MD documented in this encounterSt. Rita'S Hospital02-21-2025 NoteHNO ID: [id number] Author: ANNA BRAY MD Service: ? Author Type: Physician Type: Progress Notes Filed: 09/19/2024 14:42 Note Text: NST SUMMARY PROVIDER ASSESSMENT AND INTERPRETATION Indications for NST: Diabetes - Insulin Controlled Baseline: 155 Variability: Moderate Accelerations: Present 15 X 15 Decelerations: None Interpretation: Category I SIGNATURE: Anna Bray [facility]02-21-2025 History of Present illness Narrative* Anna Bray MD - 09/19/2024 1:45 PM EST NST SUMMARY PROVIDER ASSESSMENT AND INTERPRETATION Indications for NST: Diabetes - Insulin Controlled Baseline: 155 Variability: Moderate Accelerations: Present 15 X 15 Decelerations: None Interpretation: Category I SIGNATURE: Anna Bray MD documented in this encounterSt. Rita'S Hospital02-21-2025 Instructions* Patient Instructions* Molly Pena MA - 09/19/2024 1:38 PM EST SEQUENTIAL SCREENINGS The [facility] offers sequential screenings for women who are interested in screenings for chromosomal abnormalities and certain defects during a . The sequential screen combinesultrasound and blood tests to determine the risk of chromosomal abnormalities, including Down's Syndrome (Trisomy 21) and Trisomy 18, as well as open neural tube defects including spina bifida. Ultrasound examination is performed between 11 weeks and 13 weeks gestational age. Blood tests are drawn after the ultrasound and again later in the between 15 and 21 weeks gestational age. Please let your physician know if you are interested in this testing. It will require an appointment withour brain wave technician. This is not an ultrasound performed by a physician in our office during a routine visit. SIGNS AND SYMPTOMS OF LABOR 1. Contractions every 10 minutes or more often 2. Clear, pink, or brownish fluid (water) leaking from vagina 3. Feeling that baby is pushing down, pressure 4. Low, dull backache 5. Cramps that feel like a period 6. Cramps with or without diarrhea If you notice any of the above symptoms, contact our office at [phone] and ask to speak with anurse. After hours, you can call doctors registry at [phone] OR call [facility] at [phone] ask to have the doctor certified professional ergonomist paged. If you consider this an emergency, dial 9-1-1 or go to your nearest emergency department. NEED HELP? Are you dealing with a violent or abusive relationship? Are you a victim of rape or sexual assult? Call [facility] ([facility] 24 hour Crisis Hotline: 329.279.8512 or 063-718-1301. MANUAL Your Guide to a Healthy manual is now on-line. Visit [email or web address] to download your free copy documented in this encounterSt. Rita'S Hospital02-18-2025 Note Indication Evaluation of well-being. Diabetes mellitus, Hypothyroidism Impression - Single, live, intrauterine . - The amniotic fluid volume is normal amount with an MVP of 6 cm and an RIMA of 13.4 cm. - The placenta is anterior. - BPP 8/8. Recommendations Continue planned testing Maternal Assessment Height 160 cm Height (ft) 5 ft Height (in) 3 in Physical Exam Initial weight (lb) 153 lb Initial BMI 27.10 kg/m Maternal assessment other: 2 Para 0 Growth Overview Exam date GA BPD (mm) HC (mm) AC (mm) FL (mm) HL (mm) EFW (g) 06/03/2024 19w 3d 39.4 5% 146.9 8% 134.5 28% 28.9 44% 27.4 27% 252 12% 07/03/2024 23w 5d 53.2 4% 200.5 13% 186.5 32% 39.4 27% 550 14% 07/31/2024 27w 5d 65.7 8% 240 9% 231.4 35% 52.3 67% 1067 26% 08/29/2024 31w 6d 74.7 4% 281.6 16% 273.2 34% 57.8 17% 1669 16% Method Transabdominal ultrasound examination. View: Adequate visualization Dave . Number of fetuses: 1 Dating LMP on: 01/19/2024 GA by LMP 34 w + 3 d ORQUIDEA by LMP: 10/25/2024 GA by prior assessment 34 w + 3 d ORQUIDEA by prior assessment: 10/25/2024 Assigned: based on stated ORQUDIEA, selected on 08/29/2024 Assigned GA 34 w + 3 d Assigned ORQUIDEA: 10/25/2024 General Evaluation Cardiac activity present. FHR 166 bpm. movements: present. Presentation: cephalic Placenta: Placental site: anterior Umbilical cord: Cord vessels: 3 vessel cord Amniotic Fluid Assessment Amount of AF: normal amount MVP 6.0 cm. RIMA 13.4 cm. Q1 5.5 cm, Q2 1.9 cm, Q3 6.0 cm, Q4 0.0 cm Biophysical Profile 2: breathing movements 2: Gross body movements 2: tone 2: Amniotic fluid volume 8/8 Biophysical profile score Anatomy 4-chamber view: normal Stomach: normal Kidneys: normal Bladder: normal sex: female Wants to know sex: yes Performed By: Sydni Lemon RDMS Read By: Miah Connors, M.D.MATERNAL [id number] Progress note* Quick Notes - Anna Bray MD - 09/12/2024 5:19 PM EST S: Brit Velasquez is a 33 year old female who presents at 10/25/2024, by Last Menstrual Period for aroutine visit. Denies headache, visual changes, chest pain, shortness of breath, vaginal bleeding, leakage of fluid, or dysuria. Feeling well, no complaints. Good movement, No contractions O: See flow sheet Gen: No apparent distress Abd: Gravid, nontender Reactive NST BG followed by endocrine. Per patient controlled (Sidney Zuniga MD) She is interested in tubal if occurs. ASSESSMENT/PLAN: 1. Supervision of high risk in second trimester - ICD9: V23.9, ICD10: O09.92 (primary diagnosis) - URINE OB DIP B/O 2. Preexisting diabetes complicating , antepartum - ICD9: 648.03, 250.00, ICD10: O24.319 - Controlled - Continue current medications - URINE OB DIP B/O 3. 33 weeks gestation of - ICD9: V22.2, ICD10: Z3A.33 PTL precautions Kick counts - URINE OB DIP B/O Anna Bray MD [facility]02-14-2025 Miscellaneous Notes* Quick Notes - Anna Bray MD - 09/12/2024 5:19 PM EST S: Brit Velasquez is a 33 year old female who presents at 10/25/2024, by Last Menstrual Period for aroutine visit. Denies headache, visual changes, chest pain, shortness of breath, vaginal bleeding, leakage of fluid, or dysuria. Feeling well, no complaints. Good movement, No contractions O: See flow sheet Gen: No apparent distress Abd: Gravid, nontender Reactive NST BG followed by endocrine. Per patient controlled (Sidney Zuniga MD) She is interested in tubal if occurs. ASSESSMENT/PLAN: 1. Supervision of high risk in second trimester - ICD9: V23.9, ICD10: O09.92 (primary diagnosis) - URINE OB DIP B/O 2. Preexisting diabetes complicating , antepartum - ICD9: 648.03, 250.00, ICD10: O24.319 - Controlled - Continue current medications - URINE OB DIP B/O 3. 33 weeks gestation of - ICD9: V22.2, ICD10: Z3A.33 PTL precautions Kick counts - URINE OB DIP B/O Anna Bray MD documented in this encounterSt. Rita'[facility] Hospital02-14-2025 NoteHNO ID: [id number] Author: ANNA BRAY MD Service: ? Author Type: Physician Type: Progress Notes Filed: 09/12/2024 17:25 Note Text: NST SUMMARY PROVIDER ASSESSMENT AND INTERPRETATION Indications for NST: Diabetes - Insulin Controlled Baseline: 140 Variability: Moderate Accelerations: Present 15 X 15 Decelerations: None Interpretation: Category I SIGNATURE: Anna Bray [facility]02-14-2025 History of Present illness Narrative* Anna Bray MD - 09/12/2024 5:18 PM EST NST SUMMARY PROVIDER ASSESSMENT AND INTERPRETATION Indications for NST: Diabetes - Insulin Controlled Baseline: 140 Variability: Moderate Accelerations: Present 15 X 15 Decelerations: None Interpretation: Category I SIGNATURE: Anna Bray MD documented in this encounterSt. Rita'S Hospital02-14-2025 Instructions* Patient Instructions* Abril Sorto MA - 09/12/2024 1:55 PM EST SEQUENTIAL SCREENINGS The [facility] offers sequential screenings for women who are interested in screenings for chromosomal abnormalities and certain defects during a . The sequential screen combinesultrasound and blood tests to determine the risk of chromosomal abnormalities, including Down's Syndrome (Trisomy 21) and Trisomy 18, as well as open neural tube defects including spina bifida. Ultrasound examination is performed between 11 weeks and 13 weeks gestational age. Blood tests are drawn after the ultrasound and again later in the between 15 and 21 weeks gestational age. Please let your physician know if you are interested in this testing. It will require an appointment withour brain wave technician. This is not an ultrasound performed by a physician in our office during a routine visit. SIGNS AND SYMPTOMS OF LABOR 1. Contractions every 10 minutes or more often 2. Clear, pink, or brownish fluid (water) leaking from vagina 3. Feeling that baby is pushing down, pressure 4. Low, dull backache 5. Cramps that feel like a period 6. Cramps with or without diarrhea If you notice any of the above symptoms, contact our office at [phone] and ask to speak with anurse. After hours, you can call doctors registry at [phone] OR call [facility] at [phone] ask to have the doctor certified professional ergonomist paged. If you consider this an emergency, dial 9-1-1 or go to your nearest emergency department. NEED HELP? Are you dealing with a violent or abusive relationship? Are you a victim of rape or sexual assult? Call [facility] ([place]) 24 hour Crisis Hotline: 140.637.9998 or 322-951-0501. MANUAL Your Guide to a Healthy manual is now on-line. Visit [email or web address] to download your free copy documented in this encounterSt. Rita'S Hospital02-11-2025 Telephone encounter Note * Telephone Encounter - Ramses Phelan MA - 09/09/2024 2:25 PM EST FMLA paperwork completed and faxed back to number provided on forms. Original copy placed in [facility] chart prep folder as patient would like a copy for her records. Patient notified via [employer]. Ramses Phelan MA [facility]02-11-2025 Miscellaneous Notes* Telephone Encounter - Ramses Phelan MA - 09/09/2024 2:25 PM EST [facility] paperwork completed and faxed back to number provided on forms. Original copy placed in [facility] chart prep folder as patient would like a copy for her records. Patient notified via [employer]. Ramses Phelan MA * Telephone Encounter - Anna Barraza RN - 09/01/2024 9:46 AM EST Placed in [facility] mailbox. Anna Barraza RN documented in this encounterSt. Rita'S Hospital02-11-2025 Note Indication Evaluation of well-being Diabetes mellitus, Hypothyroidism Impression REMOTE READ - Single, live, intrauterine . - The amniotic fluid volume is normal amount with an MVP of 6.6 cm and an RIMA of 19.9 cm. - The placenta is anterior, fundal. - BPP 8/8. Recommendations Continue planned surveillance Maternal Assessment Height 160 cm Height (ft) 5 ft Height (in) 3 in Physical Exam Initial weight (lb) 153 lb Initial BMI 27.10 kg/m Maternal assessment other: 2 Para0 Growth Overview Exam date GA BPD (mm) HC (mm) AC (mm) FL (mm) HL (mm) EFW (g) 06/03/2024 19w 3d 39.4 5% 146.9 8% 134.5 28% 28.9 44% 27.4 27% 252 12% 07/03/2024 23w 5d 53.2 4% 200.5 13% 186.5 32% 39.4 27% 550 14% 07/31/2024 27w 5d 65.7 8% 240 9% 231.4 35% 52.3 67% 1067 26% 08/29/2024 31w 6d 74.7 4% 281.6 16% 273.2 34% 57.8 17% 1669 16% Method Transabdominal ultrasound examination Dave . Number of fetuses: 1 Dating LMP on: 01/19/2024 GA by LMP 33 w + 3 d ORQUIDEA by LMP: 10/25/2024 GA by prior assessment 33 w + 3 d ORQUIDEA by prior assessment: 10/25/2024 Assigned: based on stated ORQUIDEA, selected on 08/29/2024 Assigned GA 33 w + 3 d Assigned ORQUIDEA: 10/25/2024 General Evaluation Cardiac activity present. FHR 140 bpm. movements: present. Presentation: cephalic Placenta: Placental site: anterior, fundal Umbilical cord: Cord vessels: 3 vessel cord Amniotic Fluid Assessment Amount of AF: normal amount MVP 6.6 cm. RIMA 19.9 cm. Q1 3.6 cm, Q2 6.6 cm, Q3 4.4 cm, Q4 5.4 cm Biophysical Profile 2: breathing movements 2: Gross body movements 2: tone 2: Amniotic fluid volume 8/8 Biophysical profile score Anatomy sex: female. Performed By: Polina Castillo RDMS, RVT Read By: Miah Connors M.D.MATERNAL [id number] Note Indication Evaluation of well-being. Diabetes mellitus, Hypothyroidism Impression - Single, live, intrauterine . - The amniotic fluid volume is normal amount with an MVP of 4.3 cm and an RIMA of 11.5 cm. - The placenta is anterior. - BPP 8/8. Recommendations Continue planned testing Maternal Assessment Height 160 cm Height (ft) 5 ft Height (in) 3 in Physical Exam Initial weight (lb) 153 lb Initial BMI 27.10 kg/m Growth Overview Exam date GA BPD (mm) HC (mm) AC (mm) FL (mm) HL (mm) EFW (g) 06/03/2024 19w 3d 39.4 5% 146.9 8% 134.5 28% 28.9 44% 27.4 27% 252 12% 07/03/2024 23w 5d 53.2 4% 200.5 13% 186.5 32% 39.4 27% 550 14% 07/31/2024 27w 5d 65.7 8% 240 9% 231.4 35% 52.3 67% 1067 26% 08/29/2024 31w 6d 74.7 4% 281.6 16% 273.2 34% 57.8 17% 1669 16% Method Transabdominal ultrasound examination. View: Adequate visualization Dave . Number of fetuses: 1 Dating LMP on: 01/19/2024 GA by LMP 32 w + 3 d ORQUIDEA by LMP: 10/25/2024 GA by prior assessment 32 w + 3 d ORQUIDEA by prior assessment: 10/25/2024 Assigned: based on stated ORQUIDEA, selected on 08/29/2024 Assigned GA 32 w + 3 d Assigned ORQUIDEA: 10/25/2024 General Evaluation Cardiac activity present. FHR 126 bpm. movements: present. Presentation: cephalic Placenta: Placental site: anterior Umbilical cord: Cord vessels: 3 vessel cord Amniotic Fluid Assessment Amount of AF: normal amount MVP 4.3 cm. RIMA 11.5 cm. Q1 2.8 cm, Q2 2.4 cm, Q3 4.3 cm, Q4 2.1 cm Biophysical Profile 2: breathing movements 2: Gross body movements 2: tone 2: Amniotic fluid volume 03/06 Biophysical profile score Anatomy sex: female. Performed By: Sydni Lemon RDMS Read By: Miah Connors M.D.MATERNAL [id number] Telephone encounter Note* Telephone Encounter - Anna Barraza RN - 09/01/2024 9:46 AM EST Placed in [facility] mailbox. Anna Barraza RN [facility]01-31-2025 Note* Addendum Note - Giuseppe Galdamez MD - 08/29/2024 11:56 AM ESTAddended by: GIUSEPPE GALDAMEZ on: 08/29/2024 11:56 AM Modules accepted: Orders [facility] Work Phone: 1([phone] 180-675101-31-2025 Miscellaneous Notes* Addendum Note - Giuseppe Galdamez MD - 08/29/2024 11:56 AM ESTAddended by: GIUSEPPE GALDAMEZ on: 08/29/2024 11:56 AM Modules accepted: Orders * Addendum Note - Abril Sorto MA - 08/29/2024 11:46 AM ESTAddended by: ABRIL SORTO on: 08/29/2024 11:46 AM Modules accepted: Orders * Quick Notes - Giuseppe Galdamez MD - 08/29/2024 11:11 AM EST Primigravida, Type 1 diabetic at 31 weeks 6 days with good glycemic control. HgbA1C a few weeks ago5.21. Recent hgb 11 - started on iron. Pt denies , lof, bleeding or contractions. BPP: Reactive NST with good variability, ++FM RIMA - 13 Growth 16th percentile trace edema, urine with trace protein RTO weekly NST and BPP Giuseppe Galdamez MD documented in this encounterSt. [facility]01[facility]-20[facility] Note* Addendum Note - Abril Sorto MA - 08/29/2024 11:46 AM ESTAddended by: ABRIL SORTO on: 08/29/2024 11:46 AM Modules accepted: Orders [facility]01-31-2025 Progress note* Quick Notes - Giuseppe Galdamez MD - 08/29/2024 11:11 AM EST Primigravida, Type 1 diabetic at 31 weeks 6 days with good glycemic control. HgbA1C a few weeks ago5.21. Recent hgb 11 - started on iron. Pt denies , lof, bleeding or contractions. BPP: Reactive NST with good variability, ++FM RIMA - 13 Growth 16th percentile trace edema, urine with trace protein RTO weekly NST and BPP Giuseppe Galdamez MD [facility]01-31-2025 Note Indication Evaluation of growth, Evaluation of well-being Diabetes mellitus, Hypothyroidism Impression REMOTE READ - Single, live, intrauterine . - The biometry is consistent with the assigned gestational dating. - The EFW is 1669 g, at the 16%. AC is at the 34%. - The amniotic fluid volume is normal amount with an MVP of 6.7 cm and an RIMA of 14.1 cm. - The placenta is anterior, fundal. - BPP 01/04. - No malformations visualized on a limited survey as detailed below. Recommendations For NST in office Maternal Assessment Height 160 cm Height (ft) 5 ft Height (in) 3 in Physical Exam Initial weight (lb) 153 lb Initial BMI 27.10 kg/m Maternal assessment other: 2 Para 0 Method Transabdominal ultrasound examination Dave . Number of fetuses: 1 Dating LMP on: 01/19/2024 GA by LMP 31 w + 6 d ORQUIDEA by LMP: 10/25/2024 GA by prior assessment 31 w + 6 d ORQUIDEA by prior assessment: 10/25/2024 Ultrasound examination on: 08/29/2024 GA by U/S based upon: AC, BPD, Femur, HC GA by U/S 30 w + 3 d ORQUIDEA by U/S: 11/04/2024 Assigned: based on stated ORQUIDEA, selected on 08/29/2024 Assigned GA 31 w + 6 d Assigned ORQUIDEA: 10/25/2024 General Evaluation Cardiac activity present. FHR 146 bpm. movements: present. Presentation: cephalic Placenta: Placental site: anterior, fundal Umbilical cord: Cord vessels: 3 vessel cord Amniotic fluid: Amount of AF: normal amount. MVP 6.7 cm. RIMA 14.1 cm. Q1 6.7 cm, Q2 1.7 cm, Q3 2.8 cm, Q4 2.9 cm Biophysical Profile 0: breathing movements 2: Gross body movements 2: tone 2: Amniotic fluid volume 01/04 Biophysical profile score Growth Overview Exam date GA BPD (mm) HC (mm) AC (mm) FL (mm) HL (mm) EFW (g) 06/03/2024 19w 3d 39.4 5% 146.9 8% 134.5 28% 28.9 44% 27.4 27% 252 12% 07/03/2024 23w 5d 53.2 4% 200.5 13% 186.5 32% 39.4 27% 550 14% 07/31/2024 27w 5d 65.7 8% 240 9% 231.4 35% 52.3 67% 1067 26% 08/29/2024 31w 6d 74.7 4% 281.6 16% 273.2 34% 57.8 17% 1669 16% Biometry Standard BPD 74.7 mm 30w 0d 4% Hadlock OFD 100.4 mm 29w 4d 15% Nicolaides HC 281.6 mm 30w 1d 16% Price AC 273.2 mm 31w 3d 34% Hadlock Femur 57.8 mm 30w 2d 17% Price EFW 1,669 g 30w 4d 16% Hadlock EFW (lb) 3 lb EFW (oz) 11 oz EFW by: Hadlock (HC-AC-FL) Extended Licensed Marriage And Family Therapist 5.5 mm Extremities / Bony Struc FL / HC 0.21 Other Structures FHR 146 bpm Anatomy Lateral ventricles: normal Cavum septi pellucidi: normal Cerebellum: normal Cisterna magna: normal 4-chamber view: normal RVOT view: normal LVOT view: normal 3-vessel view: normal Heart / Thorax Situs: situs solitus (normal) Diaphragm: normal Stomach: normal Kidneys: normal Bladder: normal sex: female Wants to know sex: yes Performed By: Polina Castillo RDMS, RVT Read By: Miah Connors M.D.MATERNAL [id number] Instructions* Patient Instructions* Isabel Knowles MA - 08/29/2024 10:26 AM EST SEQUENTIAL SCREENINGS The [facility] offers sequential screenings for women who are interested in screenings for chromosomal abnormalities and certain defects during a . The sequential screen combinesultrasound and blood tests to determine the risk of chromosomal abnormalities, including Down's Syndrome (Trisomy 21) and Trisomy 18, as well as open neural tube defects including spina bifida. Ultrasound examination is performed between 11 weeks and 13 weeks gestational age. Blood tests are drawn after the ultrasound and again later in the between 15 and 21 weeks gestational age. Please let your physician know if you are interested in this testing. It will require an appointment withour brain wave technician. This is not an ultrasound performed by a physician in our office during a routine visit. SIGNS AND SYMPTOMS OF LABOR 1. Contractions every 10 minutes or more often 2. Clear, pink, or brownish fluid (water) leaking from vagina 3. Feeling that baby is pushing down, pressure 4. Low, dull backache 5. Cramps that feel like a period 6. Cramps with or without diarrhea If you notice any of the above symptoms, contact our office at [phone] and ask to speak with anurse. After hours, you can call doctors registry at [phone] OR call [facility] at [phone] ask to have the doctor certified professional ergonomist paged. If you consider this an emergency, dial 9-9-2 or go to your nearest emergency department. NEED HELP? Are you dealing with a violent or abusive relationship? Are you a victim of rape or sexual assult? Call [facility] ([place]) 24 hour Crisis Hotline: 129.297.2844 or 391-405-3650. MANUAL Your Guide to a Healthy manual is now on-line. Visit [email or web address] to download your free copy documented in this encounterSt. [facility]01-[facility]-2025 Note Indication Evaluation of growth Diabetes mellitus, Hypothyroidism Impression REMOTE READ - Single, live, intrauterine . - The biometry is consistent with the assigned gestational dating. - The EFW is 1067 g, at the 26%. AC is at the 35%. - The amniotic fluid volume is normal amount with an MVP of 6.7 cm and an RIMA of 19.7 cm. - The placenta is anterior, fundal. - BPP 8/8. - No malformations visualized on a limited survey as detailed below. Recommendations - growth scan every 4 weeks - Additional follow up as clinically indicated. Maternal Assessment Height 160 cm Height (ft) 5 ft Height (in) 3 in Physical Exam Initial weight (lb) 153 lb Initial BMI 27.10 kg/m Maternal assessment other: 2 Para 0 Method Transabdominal ultrasound examination Dave . Number of fetuses: 1 Dating LMP on: 01/19/2024 GA by LMP 27 w + 5 d ORQUIDEA by LMP: 10/25/2024 GA by prior assessment 27 w + 5 d ORQUIDEA by prior assessment: 10/25/2024 Ultrasound examination on: 07/31/2024 GA by U/S based upon: AC, BPD, Femur, HC GA by U/S 27 w + 0 d ORQUIDEA by U/S: 10/30/2024 Assigned: based on stated ORQUIDEA, selected on 07/31/2024 Assigned GA 27 w + 5 d Assigned ORQUIDEA: 10/25/2024 General Evaluation Cardiac activity present. FHR 152 bpm. movements: present. Presentation: cephalic Placenta: Placental site: anterior, fundal Umbilical cord: Cord vessels: 3 vessel cord Amniotic fluid: Amount of AF: normal amount. MVP 6.7 cm. RIMA 19.7 cm. Q1 5.2 cm, Q2 6.7 cm, Q3 4.9 cm, Q4 3.0 cm Biophysical Profile 2: breathing movements 2: Gross body movements 2: tone 2: Amniotic fluid volume 8/8 Biophysical profile score Growth Overview Exam date GA BPD (mm) HC (mm) AC (mm) FL (mm) HL (mm) EFW (g) 06/03/2024 19w 3d 39.4 5% 146.9 8% 134.5 28% 28.9 44% 27.4 27% 252 12% 07/03/2024 23w 5d 53.2 4% 200.5 13% 186.5 32% 39.4 27% 550 14% 07/31/2024 27w 5d 65.7 8% 240 9% 231.4 35% 52.3 67% 1067 26% Biometry Standard BPD 65.7 mm 26w 4d 8% Hadlock OFD 83.0 mm 25w 0d 2% Nicolaides HC 240.0 mm 25w 6d 9% Price AC 231.4 mm 27w 3d 35% Hadlock Femur 52.3 mm 28w 0d 67% Price EFW 1,067 g 27w 1d 26% Hadlock EFW (lb) 2 lb EFW (oz) 6 oz EFW by: Hadlock (HC-AC-FL) Extended Licensed Marriage And Family Therapist 4.9 mm Extremities / Bony Struc FL / HC 0.22 Other Structures FHR 152 bpm Anatomy Lateral ventricles: normal Cavum septi pellucidi: normal Cerebellum: normal Cisterna magna: normal 4-chamber view: normal RVOT view: normal LVOT view: normal 3-vessel view: normal Heart / Thorax Situs: situs solitus (normal) Diaphragm: suboptimal Stomach: normal Kidneys: normal Bladder: normal sex: female Wants to know sex: yes Performed By: Polina Castillo RDMS, RVT Read By: Abril Nath [facility] [id number] Progress note* Quick Notes - Spencer Cordova MD - 07/31/2024 3:54 PM EST KJ - VB No. LOF No. CTXS No. Movement: present. Other c/o: No. Medication list reviewed. Physical Exam See Flow Sheet Gen: no accute distress, well appearing A/P 27w5d Estimated Date of Delivery: 10/25/24 Labs: 28 week labs DM & hypothyroid - management by endocrinology and good control per patient Growth US today Twice weekly testing at 32 weeks Tdap today PTL precautions reviewed, Kick counts reviewed. Spencer Cordova MD [facility]01-02-2025 Miscellaneous Notes* Quick Notes - Spencer Cordova MD - 07/31/2024 3:54 PM EST KJ - VB No. LOF No. CTXS No. Movement: present. Other c/o: No. Medication list reviewed. Physical Exam See Flow Sheet Gen: no accute distress, well appearing A/P 27w5d Estimated Date of Delivery: 10/25/24 Labs: 28 week labs DM & hypothyroid - management by endocrinology and good control per patient Growth US today Twice weekly testing at 32 weeks Tdap today PTL precautions reviewed, Kick counts reviewed. Spencer Cordova MD documented in this encounterSt. [facility]01-02-2025 NoteHNO ID: [id number] Author: ISABEL KNOWLES MA Service: ? Author Type: Air Traffic Control Manager Type: Progress Notes Filed: 07/31/2024 15:57 Note Text: Patient identified by name and date of . Brit Velasquez presents today for a vaccination of Tdap. Patient denies an allergy to latex: yes Patient denies a severe (life-threatening) allergy to a previous dose of Tdap, DTP, DTaP, DT or Td vaccine. Yes Patient denies history of epilepsy or neurological problems: Yes Patient is afebrile and denies being moderately or severely ill: Yes Patient denies history of Guillain-[place] Syndrome (a severe paralytic illness): Yes Tdap Adacel injection was given without incident. See immunizations for details of immunizations administered today. VIS sheet provided: Yes Provider Spencer Cordova MD was present in office at time of injection. Isabel Knowles [facility]01-02-2025 History of Present illness Narrative* Isabel Knowles MA - 07/31/2024 3:26 PM EST Patient identified by name and date of . Brit Velasquez presents today for a vaccination of Tdap. Patient denies an allergy to latex: yes Patient denies a severe (life-threatening) allergy to a previous dose of Tdap, DTP, DTaP, DT or Td vaccine. Yes Patient denies history of epilepsy or neurological problems: Yes Patient is afebrile and denies being moderately or severely ill: Yes Patient denies history of Guillain-[place] Syndrome (a severe paralytic illness): Yes Tdap Adacel injection was given without incident. See immunizations for details of immunizations administered today. VIS sheet provided: Yes Provider Spencer Cordova MD was present in office at time of injection. Isabel Knowles MA documented in this encounterSt. [facility]12-16-2024 Evaluation note* Diagnosis Onset Date Resolution Status Admit Date Hypothyroidism chronic June 292023 11:16am Type 1 diabetes mellitus wit h hyperglycemia chronic July 14, 2 024 11:16am Hypothyroidism chronic August 302024 9:50am Type 1 diabetes mellitus wit h hyperglycemia chronic September 08 2 025 9:50am Diabetes mellitus during treated with insulin acute 2024 7:11pm Second degree perineal laceration acute October 14, 2024 7:11pm Single live acute September 272024 7:11pm (spontaneous vaginal delivery) acute October 14, 2024 7:11pm Type 1 diabetes mellitus wit h hyperglycemia chronic October 14, 2024 7:11pm [facility] Work Phone: 1(929) 747-829512-10-2024 NoteHNO ID: [id number] Author: MARY GIORDANO MD Service: ? Author Type: Physician Type: Progress Notes Filed: 07/08/2024 14:15 Note Text: NAME: Brit Velasquez CLINIC Number.: [id number] Date of : 1990 Date of Visit: July 08, 2024 Referring Provider: Tasha Ibanez MD Dear Tasha Maxwell , Consultation requested for an opinion regarding Brit Velasquez. My final recommendations will be communicated back to the requesting physician by way of shared Medical record or letter to requesting physician via [place] mail. Ms. Brit Velasquez was seen for echocardiogram and pediatric cardiology consultation on July 08, 2024. She is a 33 year old woman, at 24 3/7 weeks gestation referred due to maternal diabetes. Her last HgbA1c was 5.4% and she reports good blood glucose control. She has had genetic screening with NIPT and the results were low risk. She herself has no other significant past medical history. There is no family history of congenital heart disease. Echocardiogram Summary: 1. Segmental anatomy and situs are normal. 2. Widely patent foramen ovale with right to left shunting. 3. Qualitatively normal right ventricular size and wall thickness with normal systolic function. 4. Normal left ventricular size and wall thickness with normal systolic function. 5. Aortic arch is widely patent. 6. Ductal arch is widely patent with normal intrauterine right to left flow. 7. heart rhythm and rate are normal. 8. No pericardial effusion. Please see full echocardiogram report for complete details. Assessment and Plan: In summary, the echocardiogram today showed normal intracardiac anatomy with normal ventricular function and normal heart rate and rhythm. We discussed these findings with Ms. Brit Velasquez. In addition, the limitations of the echocardiogram and echocardiography in general, including the inability to exclude ASDs, some VSDs, minor valvar abnormalities, partial anomalous pulmonary venous return, persistent patent ductus arteriosus, and coarctation of the aorta, were explained. Based on these data we did not recommend any specific further or cardiac evaluation, though we would be happy to see her back should new concerns arise. Thank you for allowing me to participate in the care of your patient and please do not hesitate to contact me if I can be any further assistance. I spent a total of 40 minutes on the date of the service which included preparing to see the patient, [id number] patient care, completing clinical documentation, obtaining and/or reviewing separately obtained history, counseling and educating the patient/family/caregiver, and communicating results to the patient/family/caregiver. Sincerely, Mary Giordano MD July 08[facility]12-10-[facility] History of Present illness Narrative* Mary Giordano MD - 07/08/2024 1:55 PM EST NAME: Brit Velasquez CLINIC Number.: [id number] Date of : 1990 Date of Visit: July 08, 2024 Referring Provider: Tasha Ibanez MD Dear Tasha Maxwell , Consultation requested for an opinion regarding Brit Velasquez. My final recommendations will be communicated back to the requesting physician by way of shared Medical record or letter to requesting physician via [place] mail. Ms. Brit Velasquez was seen for echocardiogram and pediatric cardiology consultationon July 08, 2024. She is a 33 year old woman, at 24 3/7 weeks gestation referred due to maternal diabetes. Her last HgbA1c was 5.4% and she reports good blood glucose control. She has had genetic screening with NIPT and the results were low risk. She herself has no other significant past medical history. There is no family history of congenital heart disease. Echocardiogram Summary: 1. Segmental anatomy and situs are normal. 2. Widely patent foramen ovale with right to left shunting. 3. Qualitatively normal right ventricular size and wall thickness with normal systolic function. 4. Normal left ventricular size and wall thickness with normal systolic function. 5. Aortic arch is widely patent. 6. Ductal arch is widely patent with normal intrauterine right to left flow. 7. heart rhythm and rate are normal. 8. No pericardial effusion. Please see full echocardiogram report for complete details. Assessment and Plan: In summary, the echocardiogram today showed normal intracardiac anatomy with normal ventricular function and normal heart rate and rhythm. We discussed these findings with Ms. Brit Velasquez. In addition, the limitations of the echocardiogram and echocardiography in general, including the inability to exclude ASDs, some VSDs, minor valvar abnormalities, partial anomalous pulmonary venous return, persistent patent ductus arteriosus, and coarctation of the aorta, were explained. Basedon these data we did not recommend any specific further or cardiac evaluation, though we would be happy to see her back should new concerns arise. Thank you for allowing me to participate in the care of your patient and please do not hesitate to contact me if I can be any further assistance. I spent a total of 40 minutes on the date of the service which included preparing to see the patient, [id number] patient care, completing clinical documentation, obtaining and/or reviewing separately obtained history, counseling and educating the patient/family/caregiver, and communicating results to the patient/family/caregiver. Sincerely, Mary Giordano MD July 08, 2024 documented in this encounterSt. [facility]12-[facility]-2024 Note Indication Follow-up evaluation to complete anatomic survey Diabetes mellitus, Hypothyroidism Impression REMOTE READ The patient is referred for completion of the anatomic survey. - Single, live, intrauterine . - No malformations were visualized on a follow-up anatomic survey. - Anatomic survey was completed today. - The EFW is 550 g, at the 14%. AC is at the 32%. - The amniotic fluid volume is normal amount. - The placenta is anterior, fundal. - Not all structural malformations can be detected by ultrasound examination. Recommendations echocardiogram recommended due to pre-existing diabetes Growth every month Maternal Assessment Height 160 cm Height (ft) 5 ft Height (in) 3 in Physical Exam Initial weight (lb) 153 lb Initial BMI 27.10 kg/m Maternal assessment other: 2 Para 0 Method Transabdominal ultrasound examination Dave . Number of fetuses: 1 Dating LMP on: 01/19/2024 GA by LMP 23 w + 5 d ORQUIDEA by LMP: 10/25/2024 GA by prior assessment 23 w + 5 d ORQUIDEA by prior assessment: 10/25/2024 Ultrasound examination on: 07/03/2024 GA by U/S based upon: AC, BPD, Femur, HC GA by U/S 22 w + 5 d ORQUIDEA by U/S: 11/01/2024 Assigned: based on stated ORQUIDEA, selected on 06/03/2024 Assigned GA 23 w + 5 d Assigned ORQUIDEA: 10/25/2024 General Evaluation Cardiac activity present. FHR 137 bpm. movements: present. Presentation: cephalic Placenta: Placental site: anterior, fundal Umbilical cord: Cord vessels: 3 vessel cord Amniotic fluid: Amount of AF: normal amount. MVP 4.1 cm Growth Overview Exam date GA BPD (mm) HC (mm) AC (mm) FL (mm) HL (mm) EFW (g) 06/03/2024 19w 3d 39.4 5% 146.9 8% 134.5 28% 28.9 44% 27.4 27% 252 12% 07/03/2024 23w 5d 53.2 4% 200.5 13% 186.5 32% 39.4 27% 550 14% Biometry Standard BPD 53.2 mm 22w 1d 4% Hadlock OFD 71.2 mm 22w 0d 9% Nicolaides HC 200.5 mm 22w 1d 13% Price AC 186.5 mm 23w 3d 32% Hadlock Femur 39.4 mm 22w 6d 27% Price EFW 550 g 22w 6d 14% Hadlock EFW (lb) 1 lb EFW (oz) 3 oz EFW by: Hadlock (HC-AC-FL) Extended Licensed Marriage And Family Therapist 5.9 mm Extremities / Bony Struc FL / HC 0.20 Other Structures FHR 137 bpm Anatomy Lateral ventricles: normal Cavum septi pellucidi: normal Cerebellum: normal Cisterna magna: normal 4-chamber view: normal RVOT view: normal LVOT view: normal 3-vessel view: normal [id number] view: normal Heart / Thorax Situs: situs solitus (normal) Aortic arch view: normal Ductal arch view: normal SVC: normal IVC: normal Diaphragm: normal Stomach: normal Kidneys: normal Bladder: normal sex: female Wants to know sex: yes Maternal Structures Uterus / Cervix Cervical length 38.8 mm Performed By: Polina Castillo RDMS, RVT Read By: Miah Connors M.D.MATERNAL [id number] Progress note* Quick Notes - Spencer Cordova MD - 07/03/2024 10:58 AM EST KJ - VB No. LOF No. CTXS No. Movement: present. Other c/o: No. Medication list reviewed. Physical Exam See Flow Sheet Gen: no accute distress, well appearing A/P 23w5d Estimated Date of Delivery: 10/25/24 Labs: 28 week labs ordered DM & hypothyroid - follows with endocrinology. Patient reports good control but has a few elevated PP dinner BS. Serial growth US ordered FM & PTL precautions reviewed. Spencer Cordova MD [facility]12-05-2024 Miscellaneous Notes* Quick Notes - Spencer Cordova MD - 07/03/2024 10:58 AM EST KJ - VB No. LOF No. CTXS No. Movement: present. Other c/o: No. Medication list reviewed. Physical Exam See Flow Sheet Gen: no accute distress, well appearing A/P 23w5d Estimated Date of Delivery: 10/25/24 Labs: 28 week labs ordered DM & hypothyroid - follows with endocrinology. Patient reports good control but has a few elevated PP dinner BS. Serial growth US ordered FM & PTL precautions reviewed. Spenecr Cordova MD documented in this encounterSt. [facility] Instructions* Patient Instructions* Christi Dickson MA - 07/03/2024 9:59 AM EST SEQUENTIAL SCREENINGS The [facility] offers sequential screenings for women who are interested in screenings for chromosomal abnormalities and certain defects during a . The sequential screen combinesultrasound and blood tests to determine the risk of chromosomal abnormalities, including Down's Syndrome (Trisomy 21) and Trisomy 18, as well as open neural tube defects including spina bifida. Ultrasound examination is performed between 11 weeks and 13 weeks gestational age. Blood tests are drawn after the ultrasound and again later in the between 15 and 21 weeks gestational age. Please let your physician know if you are interested in this testing. It will require an appointment withour brain wave technician. This is not an ultrasound performed by a physician in our office during a routine visit. SIGNS AND SYMPTOMS OF LABOR 1. Contractions every 10 minutes or more often 2. Clear, pink, or brownish fluid (water) leaking from vagina 3. Feeling that baby is pushing down, pressure 4. Low, dull backache 5. Cramps that feel like a period 6. Cramps with or without diarrhea If you notice any of the above symptoms, contact our office at [phone] and ask to speak with anurse. After hours, you can call doctors registry at [phone] OR call [facility] at [phone] ask to have the doctor certified professional ergonomist paged. If you consider this an emergency, dial 8-1-0 or go to your nearest emergency department. NEED HELP? Are you dealing with a violent or abusive relationship? Are you a victim of rape or sexual assult? Call [facility] ([place]) 24 hour Crisis Hotline: 618.423.7595 or 038-348-9020. MANUAL Your Guide to a Healthy manual is now on-line. Visit [email or web address] to download your free copy documented in this encounterSt. [facility] Telephone encounter Note * Telephone Encounter - Spencer Cordova MD - 06/05/2024 4:04 PM EST Tylenol 1000mg every 6 hours as needed for headaches. She can't take Ibuprofen in . Spencer Cordova MD [facility]24 Miscellaneous Notes* Telephone Encounter - Spencer Cordova MD - 06/05/2024 4:04 PM EST Tylenol 1000mg every 6 hours as needed for headaches. She can't take Ibuprofen in . Spencer Cordova MD * Telephone Encounter - Polina Troy RN - 06/05/2024 3:17 PM EST Patient 19w5d, last seen in office on 06/03/24. Polina Troy RN documented in this encounterSt. [facility]11-07-2024 Telephone encounter Note * Telephone Encounter - Polina Troy RN - 06/05/2024 3:17 PM EST Patient 19w5d, last seen in office on 06/03/24. Polina Troy RN [facility]-05[facility] Progress note* Quick Notes - Spencer Cordova MD - 06/03/2024 4:51 PM EST KJ - VB No. LOF No. CTXS No. Movement: present. Other c/o: No. Medication list reviewed. Physical Exam See Flow Sheet Gen: no accute distress, well appearing A/P 19w3d Estimated Date of Delivery: 10/25/24 Anatomy US today AFP ordered Type 1 DM & hypothyroid - follows with endocrinology. MFM consult today: Monthly growth ultrasound Twice weekly testing 32 weeks Declines Flu vaccine Spencer Cordova MD [facility]-05[facility] Telephone encounter Note* Telephone Encounter - Anna Barraza RN - 06/03/2024 4:51 PM EST Left message for patient to call office. Anna Barraza RN [facility]24 Miscellaneous Notes* Quick Notes - Spencer Cordova MD - 06/03/2024 4:51 PM EST KJ - VB No. LOF No. CTXS No. Movement: present. Other c/o: No. Medication list reviewed. Physical Exam See Flow Sheet Gen: no accute distress, well appearing A/P 19w3d Estimated Date of Delivery: 10/25/24 Anatomy US today AFP ordered Type 1 DM & hypothyroid - follows with endocrinology. MFM consult today: Monthly growth ultrasound Twice weekly testing 32 weeks Declines Flu vaccine Spencer Cordova MD documented in this encounterSt. [facility]11-05-2024 Miscellaneous Notes* Telephone Encounter - Anna Barraza RN - 06/03/2024 4:51 PM EST Left message for patient to call office. Anna Barraza RN * Telephone Encounter - Spencer Cordova MD - 06/03/2024 4:45 PM EST Order placed in visit encounter for 4 week US. Spencer Cordova MD * Telephone Encounter - Anna Barraza RN - 06/03/2024 4:24 PM EST Saw KJ today. Please file u/s order so patient is able to schedule. Anna Barraza RN * Telephone Encounter - Anna Barraza RN - 06/03/2024 4:24 PM EST ----- Message from Bambi Gloria APRN.CNM sent at 06/03/2024 3:53 PM EST ----- Anatomy ultrasound reviewed. Screening echocardiogram ordered Return in 2-4 weeks to complete anatomic survey. Please make sure they are scheduled. Please place copy in OB chart. Bambi Gloria APRN.CNM documented in this encounterSt. Rita'[facility] Hospital11-05-2024 Telephone encounter Note * Telephone Encounter - Spencer Cordova MD - 06/03/2024 4:45 PM EST Order placed in visit encounter for 4 week US. Spencer Cordova MD [facility] Telephone encounter Note* Telephone Encounter - Anna Barraza RN - 06/03/2024 4:24 PM EST Saw KJ today. Please file u/s order so patient is able to schedule. Anna Barraza RN [facility]-05-[facility] Telephone encounter Note* Telephone Encounter - Anna Barraza RN - 06/03/2024 4:24 PM EST ----- Message from Bambi Gloria APRN.CNM sent at 06/03/2024 3:53 PM EST ----- Anatomy ultrasound reviewed. Screening echocardiogram ordered Return in 2-4 weeks to complete anatomic survey. Please make sure they are scheduled. Please place copy in OB chart. Bambi Gloria APRN.CNM [facility]24 NoteHNO ID: [id number] Author: MIAH CONNORS MD Service: ? Author Type: Physician Type: Progress Notes Filed: 06/03/2024 13:25 Note Text: MFM Consult Follow up Brit is 33yo @ 19w3d here for anatomy ultrasound and follow up in complicated by JOHN antibody positive T1DM. She is doing well today without complaints. BP 110/78 Wt 173 lb 9.6 oz (78.7 kg) LMP 01/19/2024 BMI 30.75 kg/m? Alert, oriented, no acute distress Abdomen soft, nontender during US exam US shows: - Single, live, intrauterine . - biometry is consistent with the established gestational age. - No malformations were visualized on a detailed anatomic survey, although some anatomical structures were suboptimally seen as detailed below. - The amniotic fluid volume is normal amount. - The placenta is anterior, fundal. - The Transabdominal cervical length measures 46.6 mm with no evidence of funneling or other dynamic changes. - Not all structural malformations can be detected by ultrasound examination. Problem List Items Addressed This Visit Cardiovascular Mixed hyperlipidemia Overview Was taking Rosuvastatin and stopped at beginning of . Bambi Gloria APRN.CNM Endocrinology Pre-existing type 1 diabetes mellitus in in second trimester - Primary Overview Diagnosed with DM type 2 approximately 7 years ago and was taking Metformin. Was admitted to ICU in DKA 12/20 and found that she was type 1. Sees Isabel Zuniga with [facility] for management. Tresiba 18 units a day. Novolog sliding scale. First trimester Hgb A1c 5.4% Current Assessment AND Plan Detailed anatomy ultrasound within normal limits although some views suboptimal Given number to call and scheduled screening echocardiogram Reports that she is reporting glucoses to Dr Zuniga endocrinology and mostly within goal range Return 2-4 weeks to complete anatomic survey echocardiogram ordered and discussed Monthly growth ultrasound Twice weekly testing 32 weeks Psychiatry Generalized anxiety disorder Overview 03/17/24-Started taking Zoloft 50mg PO once daily 2 years ago. Coping well and stable. Bambi Gloria APRN.CNM Other History of thyroidectomy, total Overview 03/17/24-Synthroid 112mcg PO once daily. TSH and free T4 ordered. Has appointment with endocrinology in March. Bambi Gloria APRN.CNM Current Assessment AND Plan TSH Date Value 03/19/2024 4.300 mIU/L 10/22/2018 4.810 uU/mL Following with endocrinology Needs TFTs qtrimester History of sleep apnea Overview Never used cpap. Sleep medicine consult placed. AMBROSIO Vial MD June 03, 2024 1:21 PM Medical Decision Making: Problems: Moderate: 2+ stable chronic illnesses Risk: Moderate: Moderate risk from testing/treatment Medical Decision Making Level: 4 - [facility] History of Present illness Narrative* Miah Connors MD - 06/03/2024 1:19 PM EST [facility] Consult Follow up rBit is 33yo @ 19w3d here for anatomy ultrasound and follow up in complicated by JOHN antibody positive T1DM. She is doing well today without complaints. BP 110/78 Wt 173 lb 9.6 oz (78.7 kg) LMP 01/19/2024 BMI 30.75 kg/m Alert, oriented, no acute distress Abdomen soft, nontender during US exam US shows: - Single, live, intrauterine . - biometry is consistent with the established gestational age. - No malformations were visualized on a detailed anatomic survey, although some anatomical structures were suboptimally seen as detailed below. - The amniotic fluid volume is normal amount. - The placenta is anterior, fundal. - The Transabdominal cervical length measures 46.6 mm with no evidence of funneling or other dynamic changes. - Not all structural malformations can be detected by ultrasound examination. Problem List Items Addressed This Visit Cardiovascular Mixed hyperlipidemia Overview Was taking Rosuvastatin and stopped at beginning of . Bambi Gloria APRN.CNM Endocrinology Pre-existing type 1 diabetes mellitus in in second trimester - Primary Overview Diagnosed with DM type 2 approximately 7 years ago and was taking Metformin. Was admitted to ICU [facility] 12/20 and found that she was type 1. Sees Isabel Zuniga with [facility] for management. Tresiba 18 units a day. Novolog sliding scale. First trimester Hgb A1c 5.4% Current Assessment & Plan Detailed anatomy ultrasound within normal limits although some views suboptimal Given number to call and scheduled screening echocardiogram Reports that she is reporting glucoses to Dr Zuniga endocrinology and mostly within goal range Return 2-4 weeks to complete anatomic survey echocardiogram ordered and discussed Monthly growth ultrasound Twice weekly testing 32 weeks Psychiatry Generalized anxiety disorder Overview 03/17/24-Started taking Zoloft 50mg PO once daily 2 years ago. Coping well and stable. Bambi Gloria APRN.CNM Other History of thyroidectomy, total Overview 03/17/24-Synthroid 112mcg PO once daily. TSH and free T4 ordered. Has appointment with endocrinologyin March. Bambi Gloria APRN.CNM Current Assessment & Plan TSH Date Value 03/19/2024 4.300 mIU/L 10/22/2018 4.810 uU/mL Following with endocrinology Needs TFTs qtrimester History of sleep apnea Overview Never used cpap. Sleep medicine consult placed. Bambi Gloria APRN.CNM Miah Connors MD June 03, 2024 1:21 PM Medical Decision Making: Problems: Moderate: 2+ stable chronic illnesses Risk: Moderate: Moderate risk from testing/treatment Medical Decision Making Level: 4 - Moderate documented in this encounterSt. [facility]11-05-2024 Instructions* Patient Instructions* Abril Sorto MA - 06/03/2024 10:38 AM EST SEQUENTIAL SCREENINGS The [facility] offers sequential screenings for women who are interested in screenings for chromosomal abnormalities and certain defects during a . The sequential screen combinesultrasound and blood tests to determine the risk of chromosomal abnormalities, including Down's Syndrome (Trisomy 21) and Trisomy 18, as well as open neural tube defects including spina bifida. Ultrasound examination is performed between 11 weeks and 13 weeks gestational age. Blood tests are drawn after the ultrasound and again later in the between 15 and 21 weeks gestational age. Please let your physician know if you are interested in this testing. It will require an appointment withour brain wave technician. This is not an ultrasound performed by a physician in our office during a routine visit. SIGNS AND SYMPTOMS OF LABOR 1. Contractions every 10 minutes or more often 2. Clear, pink, or brownish fluid (water) leaking from vagina 3. Feeling that baby is pushing down, pressure 4. Low, dull backache 5. Cramps that feel like a period 6. Cramps with or without diarrhea If you notice any of the above symptoms, contact our office at [phone] and ask to speak with anurse. After hours, you can call doctors registry at [phone] OR call [facility] at [phone] ask to have the doctor certified professional ergonomist paged. If you consider this an emergency, dial 4--6 or go to your nearest emergency department. NEED HELP? Are you dealing with a violent or abusive relationship? Are you a victim of rape or sexual assult? Call [facility] ([place]) 24 hour Crisis Hotline: 643.629.3594 or 432-721-0934. MANUAL Your Guide to a Healthy manual is now on-line. Visit [email or web address] to download your free copy documented in this encounterSt. Rita'S Hospital09-24-2024 Progress note* Quick Notes - Spencer Cordova MD - 04/22/2024 9:55 AM EDT KJ - VB No. LOF No. CTXS No. Movement: absent. Other c/o: No. Medication list reviewed. Physical Exam See Flow Sheet Gen: no accute distress, well appearing A/P 13w3d Estimated Date of Delivery: 10/25/24 NT & NIPT with MFM consult today Type 1 DM & hypothyroid - follows with endocrinology Anatomy US & echo ordered Spencer Cordova MD [facility] Miscellaneous Notes* Quick Notes - Spencer Cordova MD - 04/22/2024 9:55 AM EDT KJ - VB No. LOF No. CTXS No. Movement: absent. Other c/o: No. Medication list reviewed. Physical Exam See Flow Sheet Gen: no accute distress, well appearing A/P 13w3d Estimated Date of Delivery: 10/25/24 NT & NIPT with MFM consult today Type 1 DM & hypothyroid - follows with endocrinology Anatomy US & echo ordered Spencer Cordova MD documented in this encounterSt. Rita'S Hospital09-24-2024 Instructions* Patient Instructions* Abril Sorto MA - 04/22/2024 9:11 AM EDT SEQUENTIAL SCREENINGS The [facility] offers sequential screenings for women who are interested in screenings for chromosomal abnormalities and certain defects during a . The sequential screen combinesultrasound and blood tests to determine the risk of chromosomal abnormalities, including Down's Syndrome (Trisomy 21) and Trisomy 18, as well as open neural tube defects including spina bifida. Ultrasound examination is performed between 11 weeks and 13 weeks gestational age. Blood tests are drawn after the ultrasound and again later in the between 15 and 21 weeks gestational age. Please let your physician know if you are interested in this testing. It will require an appointment withour brain wave technician. This is not an ultrasound performed by a physician in our office during a routine visit. SIGNS AND SYMPTOMS OF LABOR 1. Contractions every 10 minutes or more often 2. Clear, pink, or brownish fluid (water) leaking from vagina 3. Feeling that baby is pushing down, pressure 4. Low, dull backache 5. Cramps that feel like a period 6. Cramps with or without diarrhea If you notice any of the above symptoms, contact our office at [phone] and ask to speak with anurse. After hours, you can call doctors registry at [phone] OR call [facility] at [phone] ask to have the doctor certified professional ergonomist paged. If you consider this an emergency, dial 9-1-2 or go to your nearest emergency department. NEED HELP? Are you dealing with a violent or abusive relationship? Are you a victim of rape or sexual assult? Call [facility] ([place]) 24 hour Crisis Hotline: 594.959.3117 or 196-095-4016. MANUAL Your Guide to a Healthy manual is now on-line. Visit [email or web address] to download your free copy documented in this encounterSt. Rita'S Hospital09-24-2024 History of Present illness Narrative* Miah Connors MD - 04/22/2024 8:00 AM EDT Images from the original note were not included. Obstetric & Gynecology [place] OUTPATIENT VISIT DATE April 22, 2024 OUTPATIENT VISIT TYPE MATERNAL- MEDICINE CONSULT REFERRING PROVIDER: Bambi Gloria APRN.CNM Recommendations from today's consultation will be conveyed through the electronic medical record. History of Present Illness: 33 year old at 13w3d with Estimated Date of Delivery: 10/25/24 presenting for consultation with Maternal- Medicine at [facility] in the setting of Type 1 Diabetes. She was initially diagnosed with T2DM in her early 20s, however then hospitalized for DKA in springof this year and diagnosed with T1DM. She is followed by [facility] Isabel Zuniga in [place]. She was last seen in March. Her last HbA1c was 5.4% (02/2024). She has no known end organ complications, and only recently started insulin in October (previously only on Metformin, which she still takes). Review of chart indicates JOHN antibody positive T1DM, taking Tresiba 18 units with Novolog slidingscale with higher carb meals, estimates carb ratio around 1:10. She has CGM with fasting values mostly 70s, postprandial almost all below 140 (has adjusted CGM targets for ). She is having overnight lows which she is working to avoid with her endocrinology team. She monitors her diet and generally low carbohydrate consumption, takes Tresiba 18u nightly with Novolog sliding scale with higher carb meals, estimates 1:10 carb ratio. She did have work up for facial numbness/concern for TIA vs CVA at [facility] in 2022. She now attributes symptoms to hypoglycemia however a patent foramen ovale was noted on bubble study on echocardiogram. She was not started on any anticoagulation and does not believe she was diagnosed with a CVA or TIA. 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 no122/iron/folic acid ( MULTI ORAL) Take by mouth. sertraline (ZOLOFT) 50 mg tablet Take 50 mg by mouth once daily. levothyroxine (SYNTHROID) 112 mcg tablet Take 112 mcg by mouth daily before breakfast. blood sugar diagnostic (FREESTYLE INSULINX TEST STRIPS) test strip Test blood sugar(s) 3 times daily. Dx: Type 2 DM - Uncontrolled E11.65 Insulin: No Blood-Glucose Meter (FREESTYLE INSULINX) misc Dx: Type 2 DM - Uncontrolled E11.65 lancets (FREESTYLE LANCETS) 28 gauge misc Test blood sugar(s) 2 times daily. Dx: Type 2 DM - Uncontrolled E11.65 Insulin: No (Patient taking differently: Test blood sugar(s) 3 times daily. Dx: Type 2DM - Uncontrolled E11.65 Insulin: No) Allergies: ALLERGIES Allergen Reactions Rey Ordoñez [Othe* Other: See Comments Face breaks out in purple spots when she eats rey ordoñez. Social History: Social History Tobacco Use Smoking status: Former Current packs/day: 0.00 Types: Cigarettes Quit date: 02/27/2017 Years since quittin.1 Smokeless tobacco: Never Vaping Use Vaping status: Never Used Substance Use Topics Alcohol use: No Drug use: No Food Insecurity: Not on file Family History: FAMILY HISTORY Problem Relation Age of Onset None Mother Hypertension Father Hyperlipidemia Father None Sister Arthritis Maternal Grandmother Prostate Cancer Maternal Grandfather Skin Cancer Maternal Grandfather Heart Attack Maternal Grandfather Cancer Paternal Grandmother Cancer Paternal Grandfather Review of Systems: Negative other than as noted above. Physical Exam: BP 110/70 Wt 162 lb 6.4 oz (73.7 kg) LMP 01/19/2024 BMI 28.77 kg/m Gen: Well-appearing, no acute distress CV/Resp: Non-labored breathing on room air Abd: Gravid, non-tender Ext: Moving spontaneously, no significant edema b/l Labs: HbA1c Hemoglobin A1C (%) Date Value 03/19/2024 5.4 07/07/2017 10.4 Cr 0.45 Urine P:Cr <0.08 TSH 4.3 US today shows: - Single, live, intrauterine . - [place] rump length measurement is consistent with the established gestational age. - A qualitative screen of the nuchal translucency and other anatomic structures was unremarkable siomara complete first trimester anatomic assessment. Assessment and Plan: 33 year old at 13w3d presenting for MFM consultation due to complicatedby type 1 diabetes, history Graves s/p thyroidectomy on synthroid, history obstructive sleep apnea,history anxiety, history patent foramen ovale. Type 1 Diabetes: We discussed with Brit how diabetes can affect her current , including: Preconceptual/first trimester A1c is closely related to miscarriage risk as well as congenital malformation risk, most specifically of the central nervous and cardiovascular systems. She was counseled that the [place] [employer] recommends an A1c of less than 7 mg/dL prior to conception to minimize risk of defects to the general population risk (3-5%). The higher the A1c, the greater the risk of defect, which can reach as high as 25% with an A1c of 10 mg/dL or greater. Her Hgb A1c was in goal range in first trimester at 5.4%. Risks of the diabetic were reviewed including growth disturbance (most commonly, large babies), increased risk of preeclampsia (especially with a diagnosis of preexisting hypertensionor nephropathy), possible delivery for macrosomia, in addition to the possibility of intrauterine demise (this risk is decreased significantly, but not completely, with optimal glucosecontrol and compliance with testing). Risks to the patient's , including possible intensive care unit stay, hypoglycemia, jaundice, metabolic abnormalities and respiratory complications were reviewed, all less likely with optimal glucose control and delivery at term gestation. Based on the International Consensus Report on Time in Range published in Diabetes Care in 2019, the following clinical targets for continuous glucose monitoring data interpretation are recommended. Type 1 DM: Target range: 63-140 mg/dL Time in range (TIR): >70% (>16 hrs) Time below range (TBR): <4% (<1 hr), <63 mg/dL <1% (<15min), <54 mg/dL Time above range (TAR): <25% (<6 hrs) She was counseled regarding the need for increased surveillance in a affected by diabetesincluding early anatomy, detailed anatomy, and echocardiogram. We reviewed the need for serial growth scans beginning at 24 weeks to assess growth as well as twice weekly testing beginning at 32 weeks. Delivery by 39 weeks is recommended, unless co-morbid complications arise. Mode of delivery will be based on standard obstetrical practices. PFO: Patent foramen ovale (PFO), is a relatively common congenital heart abnormality resulting from failed closure of the interatrial communication, may allow transit of embolic particles from venous sources to directly injure the brain. PFO has been an important emerging risk factor for stroke and is recognized as an independent risk factor for stroke. However, most patients with PFO are asymptomatic and have favorable outcomes. There are some risk factors for complications withPFO including atrial septal aneurysm, additional right to left shunting (from AVM for example), smoking, or hypercoagulability. Strokes related to a PFO are usually ischemic, often during the first and second trimesters and associated with an interatrial septal aneurysm, larger [id number] shunts, multiple gestations or concurrent hypercoagulability. It is physiologically plausible that during labor, a prolonged Valsalva maneuver may potentially increase mizgg-tf-phrl shunting She is very active at work with no personal or family VTE history. Aspirin prophylaxis is recommended, increased to 162 mg today. There is insufficient data to support additional chemoprophylaxis with LMWH in this context, however can be considered if there are additional risk factors, complications or prolonged hospitalization. History of thyroidectomy: Well controlled post-surgical hypothyroidism should be associated with favorable outcome.Discussed need for close monitoring of TFTs every trimester and likely need for dose adjustments related to . Given history of Graves disease, there is risk of continued circulating thyroid stimulating antibodies. We reviewed risks of graves in <5% due to crossing TSI. Obstructive Sleep Apnea: Reports history but has never worn CPAP. Denies history chronic HTN. MARIAH is correlated with increased risk for adverse outcomes including (not limited to) hypertensive disorders , maternal morbidity, delivery, SGA. Many MARIAH patients who are are class 3 obese, which may affect these correlations. Recommend follow up with sleep medicine to see if treatment indicated which would optimize outcomes. Recommend healthy weight gain, around 15-25lbs. Generalized anxiety disorder: Recommended continuing zoloft and mental health follow up, as uncontrolled anxiety and/or depression in is correlated with increased risk to . In this context the benefit of a medication like zoloft, which has a favorable safety profile in , outweighs any hypothetical risk of medication. Recommendations: Problem List Items Addressed This Visit Cardiovascular Mixed hyperlipidemia Overview Was taking Rosuvastatin and stopped at beginning of . Bambi Gloria APRN.ESTEPHANIE PFO (patent foramen ovale) Overview Echocardiogram 10/07/22 ([facility]): LVEF 55% Bubble contrast study positive for PFO Mild tricuspid valve insufficiency Endocrinology Pre-existing type 1 diabetes mellitus in in first trimester - Primary Overview Diagnosed with DM type 2 approximately 7 years ago and was taking Metformin. Was admitted to ICU [facility] 12/20 and found that she was type 1. Sees Isabel Zuniga with [facility] for management. Tresiba 18 units a day. Novolog sliding scale. First trimester Hgb A1c 5.4% Relevant Medications metFORMIN (GLUCOPHAGE) 1,000 mg tablet aspirin, enteric coated (ECOTRIN LOW STRENGTH) 81 mg EC tablet Psychiatry Generalized anxiety disorder Overview 03/17/24-Started taking Zoloft 50mg PO once daily 2 years ago. Coping well and stable. Bambi Gloria APRN.CNM Other History of thyroidectomy, total Overview 03/17/24-Synthroid 112mcg PO once daily. TSH and free T4 ordered. Has appointment with endocrinologyin March. Bambi Gloria APRN.CNM History of sleep apnea Overview Never used cpap. Sleep medicine consult placed. Bambi Gloria APRN.CNM RESOLVED: Supervision of high risk in first trimester Relevant Medications aspirin, enteric coated (ECOTRIN LOW STRENGTH) 81 mg EC tablet Other Visit Diagnoses 13 weeks gestation of Thank you for allowing us to participate in the care of this patient. Please do not hesitate to contact our office with any questions or concerns. Consultation requested by Bambi Gloria CNM for an opinion regarding with type 1 diabetesand other complications. My final recommendations will be communicated back to the requesting physician by way of shared Medical record or letter to requesting physician via US mail. I spent 55 minutes in the visit, with more than 50% of the total vacd-yr-gbuc time of the visit in counseling / coordination of care. Miah Connors MD April 22, 2024 12:53 PM documented in this encounterSt. [facility] NoteHNO ID: [id number] Author: MIAH CONNORS MD Service: ? Author Type: Physician Type: Progress Notes Filed: 04/22/2024 12:53 Note Text: Obstetric AND Gynecology [place] OUTPATIENT VISIT DATE April 22, 2024 OUTPATIENT VISIT TYPE MATERNAL- MEDICINE CONSULT REFERRING PROVIDER: Bambi Gloria APRN.CNM Recommendations from today's consultation will be conveyed through the electronic medical record. History of Present Illness: 33 year old at 13w3d with Estimated Date of Delivery: 10/25/24 presenting for consultation with Maternal- Medicine at [facility] in the setting of Type 1 Diabetes. She was initially diagnosed with T2DM in her early 20s, however then hospitalized for DKA in spring of this year and diagnosed with T1DM. She is followed by [facility] Isabel Zuniga in [place]. She was last seen in March. Her last HbA1c was 5.4% (02/2024). She has no known end organ complications, and only recently started insulin in October (previously only on Metformin, which she still takes). Review of chart indicates JOHN antibody positive T1DM, taking Tresiba 18 units with Novolog sliding scale with higher carb meals, estimates carb ratio around 1:10. She has CGM with fasting values mostly 70s, postprandial almost all below 140 (has adjusted CGM targets for ). She is having overnight lows which she is working to avoid with her endocrinology team. She monitors her diet and generally low carbohydrate consumption, takes Tresiba 18u nightly with Novolog sliding scale with higher carb meals, estimates 1:10 carb ratio. She did have work up for facial numbness/concern for TIA vs CVA at [facility] in 2022. She now attributes symptoms to hypoglycemia however a patent foramen ovale was noted on bubble study on echocardiogram. She was not started on any anticoagulation and does not believe she was diagnosed with a CVA or TIA. 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 no122/iron/folic acid ( MULTI ORAL) Take by mouth. sertraline (ZOLOFT) 50 mg tablet Take 50 mg by mouth once daily. levothyroxine (SYNTHROID) 112 mcg tablet Take 112 mcg by mouth daily before breakfast. blood sugar diagnostic (FREESTYLE INSULINX TEST STRIPS) test strip Test blood sugar(s) 3 times daily. Dx: Type 2 DM - Uncontrolled E11.65 Insulin: No Blood-Glucose Meter (FREESTYLE INSULINX) misc Dx: Type 2 DM - Uncontrolled E11.65 lancets (FREESTYLE LANCETS) 28 gauge misc Test blood sugar(s) 2 times daily. Dx: Type 2 DM - Uncontrolled E11.65 Insulin: No (Patient taking differently: Test blood sugar(s) 3 times daily. Dx: Type 2 DM - Uncontrolled E11.65 Insulin: No) Allergies: ALLERGIES Allergen Reactions Rey Ordoñez [Othe* Other: See Comments Face breaks out in purple spots when she eats rey ordoñez. Social History: Social History Tobacco Use Smoking status: Former Current packs/day: 0.00 Types: Cigarettes Quit date: 02/27/2017 Years since quittin.1 Smokeless tobacco: Never Vaping Use Vaping status: Never Used Substance Use Topics Alcohol use: No Drug use: No Food Insecurity: Not on file Family History: FAMILY HISTORY Problem Relation Age of Onset None Mother Hypertension Father Hyperlipidemia Father None Sister Arthritis Maternal Grandmother Prostate Cancer Maternal Grandfather Skin Cancer Maternal Grandfather Heart Attack Maternal Grandfather Cancer Paternal Grandmother Cancer Paternal Grandfather Review of Systems: Negative other than as noted above. Physical Exam: BP 110/70 Wt 162 lb 6.4 oz (73.7 kg) LMP 01/19/2024 BMI 28.77 kg/m? Gen: Well-appearing, no acute distress CV/Resp: Non-labored breathing on room air Abd: Gravid, non-tender Ext: Moving spontaneously, no significant edema b/l Labs: HbA1c Hemoglobin A1C (%) Date Value 03/19/2024 5.4 07/07/2017 10.4 Cr 0.45 Urine P:Cr <0.08 TSH 4.3 US today shows: - Single, live, intrauterine . - [place] rump length measurement is consistent with the established gestational age. - A qualitat (more content not included)...[facility]08-29-2024 Telephone encounter Note* Telephone Encounter - Anna Allen RN - 03/27/2024 4:54 PM EDT Reports that her bleeding had stopped during the afternoon and has since started again. Patient declined an appointment for tomorrow. Reviewed provider's recommendations. Advised to call the office if bleeding continues or increases especially with the holiday weekend. Anna Allen RN [facility]08-29-2024 Miscellaneous Notes* Telephone Encounter - Anna Allen RN - 03/27/2024 4:54 PM EDT Reports that her bleeding had stopped during the afternoon and has since started again. Patient declined an appointment for tomorrow. Reviewed provider's recommendations. Advised to call the office if bleeding continues or increases especially with the holiday weekend. Anna Allen RN * Telephone Encounter - Edilma Goncalves MD - 03/27/2024 11:58 AM EDT ok to add today or recommend pelvic rest and let us know if bleeding continues or increases if she cannot come in today. Edilma Goncalves MD * Telephone Encounter - Anna Allen RN - 03/27/2024 11:28 AM EDT Ok to add patient to schedule today? * Telephone Encounter - Gauri Hernandez MD - 03/27/2024 9:19 AM EDT At this point would not recommend HCG quants. Give bleeding/miscarriage precautions and would recommend appointment for spotting * Telephone Encounter - Anna Allen RN - 03/27/2024 8:51 AM EDT 9w5d Patient had NOB on 03/17/24. HCG quants pending if appropriate. Anna Allen RN documented in this encounterSt. [facility]08-29-2024 Telephone encounter Note * Telephone Encounter - Edilma Goncalves MD - 03/27/2024 11:58 AM EDT ok to add today or recommend pelvic rest and let us know if bleeding continues or increases if she cannot come in today. Edilma Goncalves MD [facility] Work Phone: 1(751) 965-364508-29-2024 Telephone encounter Note* Telephone Encounter - Anna Allen RN - 03/27/2024 11:28 AM EDT Ok to add patient to schedule today? [facility] Telephone encounter Note* Telephone Encounter - Gauri Hernandez MD - 03/27/2024 9:19 AM EDT At this point would not recommend HCG quants. Give bleeding/miscarriage precautions and would recommend appointment for spotting [facility] Work Phone: 1(650) 821-985808-29-2024 Telephone encounter Note* Telephone Encounter - Anna Allen RN - 03/27/2024 8:51 AM EDT 9w5d Patient had NOB on 03/17/24. HCG quants pending if appropriate. Anna Allen, RN [facility]08-28-2024 Miscellaneous Notes* Quick Notes - Bambi Gloria APRN.CNM - 03/26/2024 9:19 AM EDT SHIELA-NOB visit. See progress. Type 1 DM, seeing Isabel Zuniga for management. MFM consult and sleep medicine consult. Physician only for management. Interested in carrier screening and NIPT, will check insurance. Bambi Gloria APRN.CNM documented in this encounterSt. [facility]08-28-2024 Progress note* Quick Notes - Bambi Gloria APRN.CNM - 03/26/2024 9:19 AM EDT SHIELA-NOB visit. See progress. Type 1 DM, seeing Isabel Zuniga for management. MFM consult and sleep medicine consult. Physician only for management. Interested in carrier screening and NIPT, will check insurance. Bambi Gloria APRN.CNM [facility]08-19-2024 NoteHNO ID: [id number] Author: RAMSES PHELAN MA Service: ? Author Type: Roofing Layer Type: Progress Notes Filed: 03/26/2024 09:22 Note Text: OB point of care ultrasound was performed. See imaging tab for details. Ramses Phelan [facility]08-19-2024 History of Present illness Narrative* Ramses Phelan MA - 03/17/2024 8:49 AM EDT OB point of care ultrasound was performed. See imaging tab for details. Ramses Phelan MA * Bambi Gloria APRN.CNM - 03/17/2024 8:45 AM EDT INITIAL OB ASSESSMENT HPI: Brit is a 33 year old White Female here to establish Obstetrical Care. Patient's last menstrual period was 01/19/2024. from OB Dating Form. was unplanned but accepted Complaints: No OB History T0 L0 SAB1 IAB0 Ectopic0 Multiple0 Live Births0 Previous history: Prior : never History of 4th degree laceration: Perineal Laceration, 3rd or 4th degree No History of shoulder dystocia: Shoulder Dystocia No History of Hypertensive disorders including pre-eclampsia or gestational hypertension: Gestational Hypertension No Preeclampsia No History of gestational diabetes: Diabetes in No Patient's Risk Screening for delivery: Have you had a prior dave between 20w and 36w6d? No How many pregnancies have you had before? 0 Did you have a previous baby with a GBS Infection? 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 Last HPV: History of STDs: N/A Partner History of STDs: None Did you have a partner with Herpes? No Tobacco use: No E-Cigarette/Vaping Use: No Caffeine use: Yes 200mg or less per day Drug use: No Alcohol use: No Multivitamin with Folic acid: Yes Would refuse blood transfusion if medically necessary: No Social Needs: How often does this describe you? I don't have enough money to pay my bills: Never Within the past 12 months, have you worried that your food would run out before you had money to buy more? Never In the past 12 months, has lack of reliable transportation kept you from going to medical appointments or work, or from getting things needed for daily living? Never In the past 12 months, have you had any concerns about having a place to live, or about the condition or quality of your housing? Never Would you like more information on any of the following (please check all that apply)? Not interested Social History: Do you have any history of depression, anxiety, PTSD, or other mood problems? Yes Do you have a history of abuse or trauma that may impact your experience? No Are you currently employed? Yes Depression/Anxiety Screening: denies symptoms of depression. OB Depression and Anxiety Screening- This Encounter (since 03/16/2024) Over the past 2 weeks have you felt down, depressed, or hopeless? Negative Over the past two weeks, have you felt little interest or pleasure in doing things? Negative Feeling nervous, anxious or on edge 0-Not at all Not being able to stop or control worrying 0-Not al all Anxiety Pre-Screening Total (If >/= 3 additional questions will be reviewed) 0 Genetic Screening: Partner present: No Patient verbalized knowledge of partner family health history: No Do you or your partner have any personal or family history of defects not previously discussed: No Do you have history of a complicated by anomaly, genetic condition, or demise: No Low Dose ASA Screening: Screening for low dose aspirin use for the prevention of pre-eclampsia: High risk factors: None Moderate risk ractors: Nulliparity OB Risk Screening: Completed, no positive findings documented. 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 sertraline (ZOLOFT) 50 mg tablet Take 50 mg by mouth once daily. levothyroxine (SYNTHROID) 112 mcg tablet Take 112 mcg by mouth daily before breakfast. metFORMIN ER (GLUCOPHAGE XR) 500 mg 24 hr tablet Take 1 tablet by mouth twice daily with meals. 60 tablet 2 blood sugar diagnostic (FREESTYLE INSULINX TEST STRIPS) test strip Test blood sugar(s) 3 times daily. Dx: Type 2 DM - Uncontrolled E11.65 Insulin: No 150 Strip 2 Blood-Glucose Meter (FREESTYLE INSULINX) [place] Dx: Type 2 DM - Uncontrolled E11.65 1 Each 0 lancets (FREESTYLE LANCETS) 28 gauge [facility] Test blood sugar(s) 2 times daily. Dx: Type 2 DM - Uncontrolled E11.65 Insulin: No (Patient taking differently: Test blood sugar(s) 3 times daily. Dx: Type 2DM - Uncontrolled E11.65 Insulin: No) 100 Each 2 ENSKYCE 0.15-0.03 mg per tablet Take 1 tablet by mouth every afternoon. vitamin b complex capsule Take 1 capsule by mouth once daily. Mona-3 Fatty Acids, FISH OIL, (FISH OIL) 360-1,200 mg cap Take 1 capsule by mouth daily with breakfast. rosuvastatin (CRESTOR) 10 mg tablet Take 1 tablet by mouth every afternoon. Rzglzaqiywycqhr-Yowmwpdld-XI (BROMFED DM) 2-30-10 mg/5 mL syrup Take 10 mL by mouth four times daily as needed. 200 mL 0 cholecalciferol (VITAMIN D) 1,000 unit tab tablet Take 1,000 Units by mouth once daily. benzonatate (TESSALON PERLE) 100 mg capsule Take 2 capsules by mouth three times daily as needed. (Patient not taking: Reported on 06/13/2019 ) 30 capsule 0 levothyroxine (SYNTHROID) 100 mcg tablet Take 100 mcg by mouth daily before breakfast. (Patient nottaking: Reported on 04/18/2023) liothyronine (CYTOMEL) 5 mcg tablet Take 5 mcg by mouth once daily. desogestrel-ethinyl estradiol (ENSKYCE ORAL) Take 1 tablet by mouth once daily. (Patient not taking: Reported on 04/18/2023) benzonatate (TESSALON PERLE) 100 mg capsule Take 2 capsules by mouth three times daily as needed. (Patient not taking: Reported on 10/26/2018 ) 30 capsule 0 No current facility-administered medications for this visit. Allergies As of Date: 03/17/2024 Allergen Noted Reaction REY ORDOÑEZ [OTHER] 09/29/2011 Other: See Comments Fully Assessed 03/17/2024 Does patient have penicillin allergy: No REVIEW OF SYSTEMS: GENERAL: Negative for: Fever or Chills HEENT: Negative for: Headache, Impaired Vision, Ringing in Ears, Nosebleeds NECK: Negative for: Swelling, Pain, Stiffness RESPIRATORY: Negative for: Cough, Shortness of breath, Wheezing GASTROINTESTINAL: Negative for: Heartburn, Constipation, Diarrhea, Blood in stool, Vomiting MUSCULOSKELETAL: Negative for: Muscle or joint pain, stiffness, Joint swelling NEUROLOGIC/PSYCHIATRIC: Negative for: Weakness, Paralysis, Numbness, Tingling, Tremor, Anxiety, Depression, Memory loss SKIN: Negative for: Rash, Itching GENITOURINARY: Negative for: vaginal itching, vaginal discharge, hematuria or dysuria PHYSICAL EXAM: BP 98/62 Ht 5' 3 (1.60m) Wt 153 lb (69.4kg) LMP 01/19/2024 BMI 27.11 kg/(m^2). Pregravid weight 130 lb GENERAL: pleasant in no apparent distress DERMATOLOGY: Normal, without lesions, non-icteric, and non-hirsute NECK: Supple, full range of motion, no adenopathy, and thyroid normal CHEST: Clear to auscultation, Normal inspiratory effort, Regular rate and rhythm, and No murmurs, clicks, rubs or gallops BREAST: soft, non-tender, symmetric, no dominant mass, normal nipple-areolar complex, no lymphadenopathy, and no nipple discharge ABDOMEN: soft, non-tender, and no masses NEURO: alert and oriented x3,exam grossly non-focal PELVIS: External genitalia normal without lesions. Perineal body intact. No vaginal or cervical lesions. Cervix closed. Uterus 7 week size. No adnexal masses or tenderness. Clinical Pelvimetry: Pelvimetry clinically assessed as adequate Limited OB ultrasound exam: single intrauterine , positive cardiac activity, crown-rump length 7w1d, and normal bilateral adnexa LMP 8w2d US 7w1d LMP inconsistent with US, ORQUIDEA 11/02/24 by US ASSESSMENT: 33 year old at 8w2d wks gestational age PLAN: 1) Patient oriented to practice. Patient given new OB orientation folder. Discussed nutrition, folic acid supplementation, dietary guidelines, exercise, smoking, alcohol, caffeine, and drug use. Discussed gestational weight gain guidelines. Discussed routine OB labs including STD/HIV. Discussed how to access Your guide to a health and the Corporate Logistics Manager. 2) Screening: Hemoglobin A1C: ordered Baby Aspirin: The patient has been counseled about the potential benefits of low dose aspirin in and our recommendation that this be offered to all patients, regardless of whether they meet the high risk criteria specified above. She Accepts Aneuploidy Screening: Discussed aneuploidy screening, nuchal translucency/first trimester early anatomy ultrasound and NIPT. The risks/benefits and limitations of NIPT/aneuploidy screening were reviewed including the potential for false negative and false positive results. The availability of genetic counseling was reviewed. Information on aneuploidy screening was provided. The patient is uncertain. She will call back if she wants to proceed with screening. Pt aware of timing. Myriad Carrier Screening: Discussed myriad carrier screening. We discussed the availability of professional-society guided carrier screening and reviewed the conditions screened and limitations of screening. The availability of genetic counseling was reviewed. Information on carrier screening was provided. The patient will check insurance 3) Patient offered option of Virtual Visits. Patient prefers in person visits. 4) History of diabetes: Type 1 Diabetes Given pre gestational diabetes, ordered Hemoglobin A1C, TSH, CMP, PCR and MFM consult Thyroid Disease: TSH ordered 5) LMP inconsistent with US, ORQUIDEA 11/02/24 by US Follow up in 4 weeks or sooner prn. Bambi Gloria APRN.CNM documented in this encounterSt. [facility]08-19-2024 NoteHNO ID: [id number] Author: BAMBI GLORIA APRN.CNM Service: ? Author Type: Research Chemical Engineer Type: Progress Notes Filed: 03/26/2024 09:22 Note Text: INITIAL OB ASSESSMENT HPI: Brit is a 33 year old White Female here to establish Obstetrical Care. Patient's last menstrual period was 01/19/2024. from OB Dating Form. was unplanned but accepted Complaints: No OB History T0 L0 SAB1 IAB0 Ectopic0 Multiple0 Live Births0 Previous history: Prior : never History of 4th degree laceration: Perineal Laceration, 3rd or 4th degree No History of shoulder dystocia: Shoulder Dystocia No History of Hypertensive disorders including pre-eclampsia or gestational hypertension: Gestational Hypertension No Preeclampsia No History of gestational diabetes: Diabetes in No Patient's Risk Screening for delivery: Have you had a prior dave between 20w and 36w6d? No How many pregnancies have you had before? 0 Did you have a previous baby with a GBS Infection? 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 Last HPV: History of STDs: N/A Partner History of STDs: None Did you have a partner with Herpes? No Tobacco use: No E-Cigarette/Vaping Use: No Caffeine use: Yes 200mg or less per day Drug use: No Alcohol use: No Multivitamin with Folic acid: Yes Would refuse blood transfusion if medically necessary: No Social Needs: How often does this describe you? I don't have enough money to pay my bills: Never Within the past 12 months, have you worried that your food would run out before you had money to buy more? Never In the past 12 months, has lack of reliable transportation kept you from going to medical appointments or work, or from getting things needed for daily living? Never In the past 12 months, have you had any concerns about having a place to live, or about the condition or quality of your housing? Never Would you like more information on any of the following (please check all that apply)? Not interested Social History: Do you have any history of depression, anxiety, PTSD, or other mood problems? Yes Do you have a history of abuse or trauma that may impact your experience? No Are you currently employed? Yes Depression/Anxiety Screening: denies symptoms of depression. OB Depression and Anxiety Screening- This Encounter (since 03/16/2024) Over the past 2 weeks have you felt down, depressed, or hopeless? Negative Over the past two weeks, have you felt little interest or pleasure in doing things?? Negative Feeling nervous, anxious or on edge 0-Not at all Not being able to stop or control worrying 0-Not al all Anxiety Pre-Screening Total (If >/= 3 additional questions will be reviewed) 0 Genetic Screening: Partner present: No Patient verbalized knowledge of partner family health history: No Do you or your partner have any personal or family history of defects not previously discussed: No Do you have history of a complicated by anomaly, genetic condition, or demise: No Low Dose ASA Screening: Screening for low dose aspirin use for the prevention of pre-eclampsia: High risk factors: None Moderate risk ractors: Nulliparity OB Risk Screening: Completed, no positive findings documented. 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 sertraline (ZOLOFT) 50 mg tablet Take 50 mg by mouth once daily. levothyroxine (SYNTHROID) 112 mcg tablet Take 112 mcg by mouth daily before breakfast. metFORMIN ER (GLUCOPHAGE XR) 500 mg 24 hr tablet Take 1 tablet by mouth twice daily with meals. 60 tablet 2 blood sugar diagnostic (FREESTYLE INSULINX TEST STRIPS) test strip Test blood sugar(s) 3 times daily. Dx: Type 2 DM - Uncontrolled E11.65 Insulin: No 150 Strip 2 Blood-Glucose Meter (FREESTYLE INSULINX) [place] Dx: Type 2 DM - Uncontrolled E11.65 1 Each 0 lancets (FREESTYLE MORIS (more content not included)...[facility] 03-17-2024 Instructions* Patient Instructions* Bambi Gloria APRN.[facility] - 03/17/2024 8:42 AM EDT Please select the following link to access the [facility] Your Guide to a Healthy . [email or web address] Sertraline (Zoloft ) June 30, 2019 This sheet talks about exposure to sertraline during and while . This information should not take the place of medical care and advice from your healthcare provider. What is sertraline? Sertraline is a medication that has been used to treat depression, obsessive- compulsive disorder, panic disorder, post-traumatic stress disorder, premenstrual dysphoric disorder (a severe form of premenstrual syndrome), and social phobia. Sertraline belongs to the class of antidepressants known as s elective serotonin reuptake inhibitors (SSRIs). A brand name for sertraline is Zoloft . I take sertraline. Can it make it harder for me to get ? Studies have not been done to see if sertraline could make it harder for a woman to get . I just found out I am . Should I stop taking sertraline? You should speak to your healthcare providers before making any changes to this medication. For some women, the benefits of staying on an antidepressant during can outweigh the potential risks. If you plan to stop the medication, your healthcare provider may suggest that you slowly lower the dose instead of stopping all at once. Stopping this medication suddenly can cause some people to have withdrawal symptoms. In addition, some people may have a relapse of their symptoms if they stop this medication during . Does taking sertraline increase the chance for miscarriage? Miscarriage can occur in any . Use of sertraline and the chance of miscarriage has not been well-studied. One study found no significant differences in the rates of miscarriage in women who filled prescriptions for sertraline during the first 35 days of and those who stopped filling prescriptions between 3 and 12 months before to . Can taking sertraline in the first trimester increase the chance of defects? In every , a woman starts out with a 3-5% chance of having a baby with a defect. This is called her background risk. Sertraline is one of the better studied antidepressants during . There are reports of more than 10,000 pregnancies exposed to sertraline during the first trimester. A small number of studies have found associations between sertraline use during andbirth defects, such as heart defects. However, the majority of studies have found that women takingsertraline during are not more likely to have a baby with a defect than women not taking sertraline. Overall, the available information does not suggest that sertraline increases the chance for defects above the 3-5% background risk. Could taking sertraline in the second or third trimester cause other complications? Some studies suggest that use of SSRIs, like sertraline, during can contribute to complications like low weight and premature delivery (delivery before 37 weeks of ). It is difficult to know whether these findings are due to the medicine, underlying depression, orother factors. Two studies have suggested that babies whose mothers take SSRIs like sertraline during the second half of the may be at an increased risk for pulmonary hypertension, a serious lung problem at . Other studies have not supported this association. Further study is needed but if any increased risk does exist, it is thought to be small. You should inform your braille proofreader and your baby s green building energy engineer that you are taking sertraline so that any extra care can be provided,if needed. Research has also shown that when depression is left untreated during , there could be an increased chance for complications. This makes it difficult to determine if it is the medication or the untreated depression that is increasing the chance for these problems. Please see our fact sheet on Depression at https://mothertobaby.org/fact-sheets/depression-/pdf/. Does taking sertraline in cause long-term problems in behavior or learning for the baby? One study found that children whose mothers took SSRIs during scored lower on motor skilltests than other children. This was a very small study of 31 children; about half of these childrenwere exposed to sertraline. Another small study evaluated behaviors in children ages 4-5 years old.This study found no difference in behavior between children whose mothers took sertraline or other S SRIs and those children whose mother did not take an SSRI. I need to take sertraline throughout my entire . Will it cause withdrawal symptoms in my baby? If you are taking sertraline at the time of delivery, your baby may have some difficulties for the first few days of life. Your baby may have jitteriness, vomiting, constant crying, increased muscle tone, irritability, altered sleep patterns, tremors, difficulty eating and regulating body temperature and some problems with breathing. While in most cases these effects are mild and go away on theirown within 2 weeks of age, some babies may need to stay in a special care nursery for several days until the effects from sertraline and withdrawal go away. Not all babies exposed to sertraline will have these symptoms. Can I breastfeed while taking sertraline? When a mother takes sertraline, only a small amount of the drug passes into the breast milk. Very small amounts of sertraline and its breakdown product, norsertraline, are found in breast milk. Most published reports on sertraline and reported no harmful effects on the nursing infant.Long-term studies on infants exposed to sertraline in breast milk have not been conducted. If you are worried about symptoms your baby has, contact the child s healthcare provider. Be sure to talk toyour healthcare provider about all of your questions. If a man takes sertraline, could it affect his fertility (ability to get partner ) or increase the chance of defects? An increased chance of defects or complications is not expected when the father of the baby takes sertraline. In general, exposures that fathers have are unlikely to increase risks toa . For more information, please see the [employer] fact sheet Paternal Exposures at http s://[email or web address].org/fact-sheets/ogxbixkw-ltdqofsic-dsippwavp/pdf/. Please click here to view references National Registry for Psychiatric Medications: There is a registry for women who take psychiatric medications, such as sertraline. For more information you can look at their website: [email or web address]/research/pregnancyregistry/ [facility] Discharge summary Author Caden Greenwood [facility] November 28, 2023 4:41pm Note Date/Time November 28, 2023 8:08am [facility] Medical Records Department [address] [place] [address] Emergency Department Summary 11/28/23 MR#: [id number] Acct: [id number] Name: BRIT VELASQUEZ Rep #:[id number] : 1990 33 From: Caden Vasquez PCP: TOSHIA Gallo Sta tus:ADM IN Location: ICU CVICU20 4-1 HPI History of Present Illness Chief Complaint: General Illness Informant: patient Onset/Context/Timing Onset: Weeks (2) Context: Gradual Onset Timing: Continuous Quality: Nauseated, unsteady Location: Generalized Worsened by: Nothing Relieved by: Nothing Narrative Narrative: Patient presents with nausea, dizziness, and hyperglycemia for the past 2 weeks. Patient states she is concerned that she is in DKA because she checked her urine and noted there were large ketones. Patient states her sugars have been up to 3 50- 400 after receiving a steroid injection. Patient was started on Jardiance 2 days ago and her blood sugars are getting better. Patient states she feels unsteady on her feet. Patient states nothing makes her symptoms better and nothing makes them worse. Patient denies any fevers or chills. Patient states he did travel to [place] recently. Patient states she is also having some diarrhea. Patient denies any melena or hematochezia. [facility] Medical History Abnormal laboratory test Acne Alcohol abuse Chronic migraine Contact with and (suspected) exposure to other viral communicable diseases Diabetes mellitus type 2, controlled, without complications Diabetes type 2, controlled Former tobacco use JOHN (generalized anxiety disorder) Graves disease Heart murmur Hemiplegia affecting left nondominant side History of alcohol abuse History of migraine Hx of hypercholesterolemia Hyperglycemia, unspecified Hyperlipidemia Hyperthyroidism Hypoglycemia Hypotension Hypothyroidism Mitral valve prolapse Palpitations PFO (patent foramen ovale) Polycystic ovarian disease Sleep apnea URI (upper respiratory infection) Vaginal bleeding between periods Vitamin D deficiency Home Medications pen needle, diabetic 32 gauge x 5/32 (BD Ultra-Fine Angie Pen Needle) #100 ea 03/12/18 [Rx Last Taken Unknown] Freestyle Lancing device See Rx Instructions .Route .COMPLEX ##1 08/29/18 [Rx Last Taken Unknown] lancets 28 gauge (FreeStyle Lancets) #60 ea 08/29/18 [Rx Last Taken Unknown] liothyronine 5 mcg tablet 5 mcg PO DAILY #30 tabs 12/20/18 [Rx Last Taken Unknown] FreeStyle Lite Strips (blood sugar diagnostic) #120 ea 12/24/18 [Rx Last Taken Unknown] rosuvastatin 10 mg tablet 10 mg PO DAILY 10/06/22 [History Last Taken Unknown] cholecalciferol (vitamin D3) 25 mcg (1,000 unit) capsule 25 mcg PO DAILY 10/20/22 [History Last Taken Unknown] levothyroxine 112 mcg tablet 112 mcg PO DAILY 10/20/22 [History Last Taken Unknown] pimecrolimus 1 % topical cream 1 applic topical ONCE 10/20/22 [History Last Taken Unknown] metformin 500 mg tablet 500 mg PO Q4H 10/26/22 [History Last Taken Unknown] doxycycline monohydrate 50 mg capsule 50 mg PO DAILY 11/28/23 [History Last Taken Unknown] empagliflozin 10 mg tablet (Jardiance) 10 mg PO DAILY 11/28/23 [History Last Taken Unknown] sertraline 50 mg tablet 50 mg PO DAILY 11/28/23 [History Last Taken Unknown] Allergy/AdvReac Type Severity Reaction Status Date / Time No Known Allergies Allergy Verified 11/28/23 08:04 Family History Father Hypertension High cholesterol Mother Alcoholism Grandmother Arthritis Grandfather Cancer Surgical History Hx of thyroidectomy Social History household members: significant other Smoking Status: Former smoker quit date: 07/30/16 Tobacco: How many years used: 9 how long ago did patient quit smoking: Quit 6-7 years prior, smoked 1 ppd sinceteen until quit. second hand exposure: No alcohol intake: former details: Former heavy drinker, sober 6-7 years. substance use type: does not use and marijuana caffeine: No what type of physical activity do you participate in: walking, running, bicycling and weight training frequency: 3-4 times per week seatbelt use: always ROS ROS ED Constitutional Constitutional ED: Denies chills or fever(s) Eyes Eyes: Reports blurry vision; Denies change in vision ENT ENT ED: Denies rhinorrhea or sore throat Cardiovascular Cardiovascular: Denies chest pain or palpitations Respiratory/Chest Respiratory/Chest: Denies cough or dyspnea Gastrointestinal Gastrointestinal: Reports diarrhea and nausea; Denies vomiting Genitourinary Genitourinary ED: Denies dysuria or hematuria Musculoskeletal Musculoskeletal: Denies back pain or neck pain Integumentary Denies abscess or rash Neurologic Neurologic: Denies headache(s) or weakness Allergic/Immunologic Allergic/Immunologic ED: Denies mouth swelling or urticaria EXAM Physical Exam Const Vital Signs: 11/28/23 08:02 11/28/23 08:57 Temperature 97.4 F L Temperature Source Temporal Pulse Rate 105 H Respiratory Rate 16 Respiratory Effort Normal Non-Labored Respiratory Pattern Normal Blood Pressure 109/85 H Blood Pressure Mean 93 Pulse Ox 99 Oxygen Delivery Method Room Air Positive well nourished and well developed General Appearance ED: well developed and NAD HEENT Reports moist mucous membranes Neck supple and no JVD Resp normal respiratory effort and clear to auscultation bilaterally Cardio regular rhythm Rate: tachycardic GI non-distended Palpation: soft and tender epigastric, LLQ, RLQ, LUQ, RUQ, periumbilical and suprapubic Extremity normal to inspection Neuro oriented x3, CN's II-XII intact bilaterally and no sensory deficits noted Sensorium / Orientation: alert Motor Exam: strength 5/5 throughout Psych mental status grossly normal MDM MDM MDM Narrative Medical decision making narrative: Differential diagnosis includes DKA, dehydration, electrolyte abnormality, acutekidney injury, viral illness, and anxiety. CBC will be obtained to assess for leukocytosis and anemia. Basic metabolic profile will be obtained to assess forelectrolyte abnormality and renal function. Serum acetone will be obtained to assess for DKA. Urinalysis will be obtained to assess for urinary tract infection. COVID-19, influenza, and RSV PCR will be obtained to assess for viral illness. Lab Data Attestation: I reviewed the patient's lab results. Lab results narrative: CBC was reviewed and was within normal limits. Basic metabolic profile was reviewed. Glucose was only slightly elevated at 153. CO2 was low at 15 and anion gap was elevated at 17. BUN was slightly elevated at 23. Serum hCG was reviewed and was negative. Urinalysis was reviewed. Urine ketones was 150, urine glucose was 1000. There is no evidence of urinary tract infection or hematuria. Serum acetone was reviewed and was moderate. Venous blood gas was reviewed and showed a pH of 7.336, pCO2 of 20.8, pO2 of 85.2, and bicarb of 11.1. COVID-19 PCR was reviewed and was negative. Influenza PCR was reviewed and was negative for influenza A and influenza B. RSV PCR was reviewed and was negative. Labs: Laboratory Results - last 24 hr 11/28/23 11/28/23 08:24 08:35 WBC 6.5 RBC 4.94 Hgb 14.3 Hct 42.9 MCV 86.8 MCH 28.9 MCHC 33.3 RDW Std Deviation 38.9 RDW Coeff of Jose Antonio 12.1 Plt Count 202 MPV 9.4 Immature Gran % (Auto) 0.200 Neut % (Auto) 69.9 Lymph % (Auto) 24.0 Morris % (Auto) 4.9 Eos % (Auto) 0.5 Baso % (Auto) 0.5 Absolute Neuts (auto) 4.5 Absolute Lymphs (auto) 1.55 Nucleated RBC % 0 Sodium 135 L Potassium 3.7 Chloride 103 Carbon Dioxide 15.0 L Anion Gap 17 H BUN 23 H Creatinine 0.76 Estim Creat Clear Calc 88.72 Est GFR (MDRD) Af Amer 114 Est GFR (MDRD) Non-Af 94 BUN/Creatinine Ratio 30.3 H Glucose 153 H Calcium 9.1 Serum , Qual NEGATIVE Urine Color Yellow Urine Clarity Clear Urine pH 5.0 Ur Specific Agra 1.025 Urine Protein 30 H Urine Glucose (UA) 1000 H Urine Ketones 150 A* Urine Occult Blood Negative Urine Nitrite Negative Urine Bilirubin Negative Urine Urobilinogen Normal Ur Leukocyte Esterase Negative Urine RBC 0 SEEN Urine WBC 0 SEEN Ur Squamous Epith Cells 0-5 SEEN Urine Bacteria 0 SEEN Urine Mucus 0 SEEN Acetone Level MODERATE H ABG Data ABG results: ABG 11/28/23 09:33 Specimen Type TAL Sample Site Not entered VBG pH 7.34 VBG pO2 85 H VBG HCO3 11 L VBG Total CO2 12 L VBG O2 Sat (Calc) 96 H VBG Base Excess -15 L POC Mix VBG pCO2 Pt Tmp 20.8 L O2 Delivery Device Room Air Management Discussion w/another healthcare provider: Hospitalist Treatment and Re-Evaluation :: Patient was given IV fluids and Zofran. Patient was advised of her findings. Patient was started on insulin drip. Patient was advised of the need for hospitalization. Patient is agreeable with this. Case was discussed with the hospitalist. She will admit the patient to her service. Patient understood andwas agreeable with the plan. All questions were answered. Discharge Plan Dx/Rx/DC Orders Clinical Impression: Diabetic ketoacidosis, Nausea Disposition Disposition: Acute Care Hospital [facility] What to do if you have Problems For any increased pain, shortness of breath, bleeding, nausea or vomiting, chestpain, or any unexpected problems, contact your Primary Care Provider. Call [facility] ([phone]) or report to the closest Emergency Room. Call 911 if necessary. 11/28/23 1132 <Electronically signed by Caden Greenwood DO> Cosigner Signature (if applicable): CC: TOSHIA Hernandez ~ Signed [facility] Work Phone: [phone]) 747-937705-01-2024 History and physical note Author Deborah Gill [facility] November 28, 2023 2:05pm Note Date/Time November 28, 2023 10:24a m [facility] Medical Records Department [address] [place] [address] H&P Exam - Hospitalist 11/28/23 1016 MR#: [id number] Acct: [id number] Name: BRIT VELASQUEZ Rep #:[id number] : 1990 33 From: Deborah Gill MD PCP: TOSHIA Gallo tus:ADM IN Location: ICU CVICU20 4-1 HPI - General General Date of Admission: 11/28/23 Date of Service: 11/28/23 Chief Complaint: generalised feeling of unwellness HPI Narrative BRIT VELASQUEZ, is a 33 F with a PMH as outlined who presents via the ED on 11/28/2023 with a complaint of generalised malaise. She also had nausea, vomiting and dizziness as well as elevated blood sugar for the last several weeks. She got a steroid shot a few weeks ago for a trigger finger and says she noticed herblood sugars were running high afterwards. She saw her PCP and was started on Jardiance 2 days prior to admission and states her blood sugars have been getting better. However she was still not feeling well and admitted to generalised malaise, weakness, nausea and some vomiting. She checked her urine ketones at home as she was concerned about DKA, and it read as high ketones, so she decided to come into the ED. she was diagnosed with type 2 diabetes mellitusabout 6 years ago and states that sugars have been quite well-controlled. 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 Her last A1c about a month ago was 6.6. She says she has been told by her primary care doctor that she may have type 1 diabetes mellitus instead of type 2 diabetes mellitus Vitals in the ED were blood pressure 109/85 with pulse rate of 105, respirate rate of 16 and temperature of 97.4 Fahrenheit. She was saturating well on room air. CBC was unremarkable and BMP showed bicarb of 15 with anion gap of 17, with creatinine of 0.76. Urinalysis showed elevated urine glucose as well as elevated urine ketones. Serum ketone level was moderate. Blood sugar on admission was 153. She has been admitted to be managed for DKA likely induced by Jardiance. [facility] Medical History Abnormal laboratory test Acne Alcohol abuse Chronic migraine Contact with and (suspected) exposure to other viral communicable diseases Diabetes mellitus type 2, controlled, without complications Diabetes type 2, controlled Former tobacco use JOHN (generalized anxiety disorder) Graves disease Heart murmur Hemiplegia affecting left nondominant side History of alcohol abuse History of migraine Hx of hypercholesterolemia Hyperglycemia, unspecified Hyperlipidemia Hyperthyroidism Hypoglycemia Hypotension Hypothyroidism Mitral valve prolapse Palpitations PFO (patent foramen ovale) Polycystic ovarian disease Sleep apnea URI (upper respiratory infection) Vaginal bleeding between periods Vitamin D deficiency Home Medications pen needle, diabetic 32 gauge x 5/32 (BD Ultra-Fine Angie Pen Needle) #100 ea 03/12/18 [Rx Last Taken Unknown] Freestyle Lancing device See Rx Instructions .Route .COMPLEX ##1 08/29/18 [Rx Last Taken Unknown] lancets 28 gauge (FreeStyle Lancets) #60 ea 08/29/18 [Rx Last Taken Unknown] liothyronine 5 mcg tablet 5 mcg PO DAILY #30 tabs 12/20/18 [Rx Last Taken Unknown] FreeStyle Lite Strips (blood sugar diagnostic) #120 ea 12/24/18 [Rx Last Taken Unknown] rosuvastatin 10 mg tablet 10 mg PO DAILY 10/06/22 [History Last Taken Unknown] cholecalciferol (vitamin D3) 25 mcg (1,000 unit) capsule 25 mcg PO DAILY 10/20/22 [History Last Taken Unknown] levothyroxine 112 mcg tablet 112 mcg PO DAILY 10/20/22 [History Last Taken Unknown] pimecrolimus 1 % topical cream 1 applic topical ONCE 10/20/22 [History Last Taken Unknown] metformin 500 mg tablet 500 mg PO Q4H 10/26/22 [History Last Taken Unknown] doxycycline monohydrate 50 mg capsule 50 mg PO DAILY 11/28/23 [History Last Taken Unknown] empagliflozin 10 mg tablet (Jardiance) 10 mg PO DAILY 11/28/23 [History Last Taken Unknown] sertraline 50 mg tablet 50 mg PO DAILY 11/28/23 [History Last Taken Unknown] Allergy/AdvReac Type Severity Reaction Status Date / Time No Known Allergies Allergy Verified 11/28/23 08:04 Family History Father Hypertension High cholesterol Mother Alcoholism Grandmother Arthritis Grandfather Cancer Surgical History Hx of thyroidectomy Social History household members: significant other Smoking Status: Former smoker quit date: 07/30/16 Tobacco: How many years used: 9 how long ago did patient quit smoking: Quit 6-7 years prior, smoked 1 ppd sinceteen until quit. second hand exposure: No alcohol intake: former details: Former heavy drinker, sober 6-7 years. substance use type: does not use and marijuana caffeine: No what type of physical activity do you participate in: walking, running, bicycling and weight training frequency: 3-4 times per week seatbelt use: always ROS Review of Systems ROS Unobtainable: Denies due to encephalopathy Constitutional Constitutional: Reports anorexia, fatigue, malaise and weakness; Denies change in weight, chills or fever(s) Eyes Eyes: Denies change in vision ENT HEENT: Denies dysphagia, headache(s), hearing loss or sore throat Cardiovascular Cardiovascular: Denies dyspnea on exertion, edema, lightheadedness, orthopnea, palpitations or rapid heart rate Respiratory/Chest Respiratory/Chest: Denies cough, dyspnea, productive cough, shortness of breath at rest or shortness of breath with exertion Gastrointestinal Gastrointestinal: Reports nausea and vomiting; Denies abdominal pain, constipation, diarrhea or dyspepsia Genitourinary Genitourinary: Denies burning urination, difficulty urinating or dysuria Neurologic Neurologic: Denies confusion, dizziness, focal weakness or headache(s) Psychiatric Psychiatric: Denies anxiety or depression Endocrine Endocrinology: Denies change in body appearance Vital Signs Vital Signs Vital Signs: 11/28/23 08:02 11/28/23 08:57 Temperature 97.4 F L Temperature Source Temporal Pulse Rate 105 H Respiratory Rate 16 Respiratory Effort Normal Non-Labored Respiratory Pattern Normal Blood Pressure 109/85 H Blood Pressure Mean 93 Pulse Ox 99 Oxygen Delivery Method Room Air Weight Weight: 129 lb 9 oz Body Mass Index (BMI) 22.9 Physical Exam Const alert, oriented x3 and no apparent distress General Appearance: cooperative HEENT normocephalic, head/scalp atraumatic and hearing grossly normal bilaterally HEENT Narrative: dry oral mucosa Eyes PERRL, EOMs intact bilaterally and conjunctivae normal Neck no lymphadenopathy, supple and no JVD Resp normal respiratory effort, no retractions, no use of accessory muscles and clearto auscultation bilaterally Cardio regular rate, regular rhythm, S1 normal heart sound, S2 normal heart sound and no murmurs GI normal to inspection, nondistended, normoactive bowel sounds, soft to palpation,non-tender and non-distended Extremity normal to inspection, full ROM and no clubbing, cyanosis or edema Neuro oriented x3, CN's II-XII intact bilaterally, moves all extremities and no focal motor deficits Sensorium / Orientation: awake and alert Motor Exam: strength 5/5 throughout Psych affect normal Results Lab / Micro Data 11/28/23 08:35 11/28/23 12:00 Labs: Laboratory Results - last 24 hr 11/28/23 08:24: Urine Color Yellow, Urine Clarity Clear, Urine pH 5.0, Ur Specific Agra 1.025, Urine Protein 30 H, Urine Glucose (UA) 1000 H, Urine Ketones 150 A*, Urine Occult Blood Negative, Urine Nitrite Negative, Urine Bilirubin Negative, Urine Urobilinogen Normal, Ur Leukocyte Esterase Negative, Urine RBC 0 SEEN, Urine WBC 0 SEEN, Ur Squamous Epith Cells 0-5 SEEN, Urine Bacteria 0 SEEN, Urine Mucus 0 SEEN 11/28/23 08:35: WBC 6.5, RBC 4.94, Hgb 14.3, Hct 42.9, MCV 86.8, MCH 28.9, MCHC 33.3, RDW Std Deviation 38.9, RDW Coeff of Jose Antonio 12.1, Plt Count 202, MPV 9.4, Immature Gran % (Auto) 0.200, Neut % (Auto) 69.9, Lymph % (Auto) 24.0, Morris % (Auto) 4.9, Eos % (Auto) 0.5, Baso % (Auto) 0.5, Absolute Neuts (auto) 4.5, Absolute Lymphs (auto) 1.55, Nucleated RBC % 0, Sodium 135 L, Potassium 3.7, Chloride 103, Carbon Dioxide 15.0 L, Anion Gap 17 H, BUN 23 H, Creatinine 0.76, Estim Creat Clear Calc 88.72, Est GFR (MDRD) Af Amer 114, Est GFR (MDRD) Non-Af 94, BUN/Creatinine Ratio 30.3 H, Glucose 153 H, Calcium 9.1, Serum , Qual NEGATIVE, Acetone Level MODERATE H Micro: Microbiology 11/28/23 08:35 Mucosa - Nose SARS-CoV-2, Influenza & RSV (PCR) - Final ABG Data ABG results: ABG 11/28/23 09:33 Specimen Type TAL Sample Site Not entered VBG pH 7.34 VBG pO2 85 H VBG HCO3 11 L VBG Total CO2 12 L VBG O2 Sat (Calc) 96 H VBG Base Excess -15 L POC Mix VBG pCO2 Pt Tmp 20.8 L O2 Delivery Device Room Air Assessment & Plan Assessment/Plan (1) Diabetic ketoacidosis: (2) Nausea: PLAN: Plan #Euglycemic DKA * Likely due to Jardiance * Patient had a steroid shot a few weeks ago for trigger finger and subsequently her blood sugars were running high. She complained of generalized malaise and weakness and saw her PCP who started her on Jardiance on account of elevated blood sugars. Jardiance was started a couple of days prior to admission. Patient subsequently noted that his symptoms persisted and actually worsened so she checked a urine ketones at home and they were markedly elevated. * Blood sugar on admission was 153. Creatinine 0.76 and anion gap is 17 with bicarb of 15. Sodium is 135 and potassium is 3.7. Serum osmolality is also 309. * Urinalysis showed urine ketones of 150 with urine glucose of thousand. * Serum acetone level was moderate. * Patient started on insulin drip in the ED. Will admit to ICU though her DKA is very mild and anticipate that he will improve quickly, insulin cannot be titrated on the floor so I will admit patient to the ICU. * Continue hydration with IV fluid normal saline and manage as per DKA protocol. * Check BMP every 4 hourly and switch to D5 NS once blood sugars less than 250. Keep patient n.p.o. for now. Can be started on a diet once anion gap closes x 2. * Of note, patient did become hypoglycemic when she got to the ICU and blood sugar checked was 38. Insulin drip was discontinued and patient was placed on D5 half-normal saline. Subsequent ABG showed anion gap had closed the patient started on a diet. * Jardiance discontinued. A1c was checked and this came back at 7.9. * If hypoglycemia does not recur, will resume patient's metformin tomorrow. * #Hypothyroidism: On Synthroid #Hyperlipidemia: On statin #Depression: On sertraline DVT prophylaxis: Lovenox Charges/Coding Visit Charges Inpatient E&M: 27005 Init Hosp L3 11/28/23 1405 <Electronically signed by Deborah Gill MD> Cosigner Signature (if applicable): CC: TOSHIA Hernandez; Dr. Deborah Gill MD~ Signed [facility] Work Phone: [phone]) 137-313304-17-2024 Discharge summary Author Merry Tanner [facility] November 14, 2023 11:21pm Note Date/Time November 14, 2023 8:4 5pm [facility] Medical Records Department [address] [place] [address] Emergency Department Summary 11/14/23 MR#: [id number] Acct: [id number] Name: BRIT VELASQUEZ Rep #:[id number] : 1990 33 From: Merry Tanner DO PCP: TOSHIA Gallo tus:DEP ER Location: ED HPI History of Present Illness Chief Complaint: Hyperglycemia Detail of Chief Complaint: Elevated blood sugar Informant: patient Narrative Narrative: Patient presents with elevated blood sugar today up to 360 at home. Patient states that she received a cortisone injection in her right hand for trigger finger. Injection was 2 days ago. Patient normally well-controlled with blood sugars usually under 150. She denies recent illness. She denies nausea or vomiting. She has had no fevers [facility] Medical History (Updated 11/14/23 @ 22:[address] Merry Tanner DO) Abnormal laboratory test Acne Alcohol abuse Chronic migraine Contact with and (suspected) exposure to other viral communicable diseases Diabetes mellitus type 2, controlled, without complications Diabetes type 2, controlled Former tobacco use JOHN (generalized anxiety disorder) Graves disease Heart murmur Hemiplegia affecting left nondominant side History of alcohol abuse History of migraine Hx of hypercholesterolemia Hyperglycemia, unspecified Hyperlipidemia Hyperthyroidism Hypoglycemia Hypotension Hypothyroidism Mitral valve prolapse Palpitations PFO (patent foramen ovale) Polycystic ovarian disease Sleep apnea URI (upper respiratory infection) Vaginal bleeding between periods Vitamin D deficiency Home Medications pen needle, diabetic 32 gauge x 5/32 (BD Ultra-Fine Angie Pen Needle) #100 ea 03/12/18 [Rx Last Taken Unknown] Freestyle Lancing device See Rx Instructions .Route .COMPLEX ##1 08/29/18 [Rx Last Taken Unknown] lancets 28 gauge (FreeStyle Lancets) #60 ea 08/29/18 [Rx Last Taken Unknown] liothyronine 5 mcg tablet 5 mcg PO DAILY #30 tabs 12/20/18 [Rx Last Taken Unknown] FreeStyle Lite Strips (blood sugar diagnostic) #120 ea 12/24/18 [Rx Last Taken Unknown] rosuvastatin 10 mg tablet 10 mg PO DAILY 10/06/22 [History Last Taken Unknown] cholecalciferol (vitamin D3) 25 mcg (1,000 unit) capsule 25 mcg PO DAILY 10/20/22 [History Last Taken Unknown] levothyroxine 112 mcg tablet 112 mcg PO DAILY 10/20/22 [History Last Taken Unknown] pimecrolimus 1 % topical cream 1 applic topical ONCE 10/20/22 [History Last Taken Unknown] aspirin 81 mg tablet,delayed release 81 mg PO DAILY 10/26/22 [History Last Taken Unknown] metformin 500 mg tablet 500 mg PO BID 10/26/22 [History Last Taken Unknown] Allergy/AdvReac Type Severity Reaction Status Date / Time No Known Allergies Allergy Verified 11/14/23 20:15 Family History Father Hypertension High cholesterol Mother Alcoholism Grandmother Arthritis Grandfather Cancer Surgical History Hx of thyroidectomy Social History household members: significant other Smoking Status: Former smoker quit date: 07/30/16 Tobacco: How many years used: 9 how long ago did patient quit smoking: Quit 6-7 years prior, smoked 1 ppd sinceteen until quit. second hand exposure: No alcohol intake: former details: Former heavy drinker, sober 6-7 years. substance use type: does not use and marijuana caffeine: No what type of physical activity do you participate in: walking, running, bicycling and weight training frequency: 3-4 times per week seatbelt use: always ROS ROS ED ROS Narrative Hyperglycemia Review of Systems ROS Unobtainable: other Constitutional Constitutional ED: Reports lethargy; Denies chills, fever(s), sweats or weight loss Eyes Eyes: Denies blurry vision, change in vision or diplopia ENT ENT ED: Denies rhinorrhea or sore throat Cardiovascular Cardiovascular: Denies chest pain, orthopnea or racing heartbeat Respiratory/Chest Respiratory/Chest: Denies cough, dyspnea, dyspnea on exertion, orthopnea or sputum Gastrointestinal Gastrointestinal: Denies abdominal pain, diarrhea, nausea or vomiting Genitourinary Genitourinary ED: Denies dysuria, hematuria or urinary frequency Musculoskeletal Musculoskeletal: Denies arthralgias, back pain, myalgias or neck pain Integumentary Denies abscess, Abrasions or rash Neurologic Neurologic: Denies headache(s) or weakness Psychiatric Psychiatric: Denies anxiety, depression or suicidal thoughts Endocrine Endocrinology: Denies polydipsia, polyphagia or polyuria Hematologic/Lymphatic Hematologic/Lymphatic: Denies easy bleeding, easy bruising or lymphadenopathy Allergic/Immunologic Allergic/Immunologic ED: Denies mouth swelling, tongue swelling or urticaria EXAM Physical Exam Const Vital Signs: 11/14/23 20:13 11/14/23 21:13 Temperature 97.2 F L Temperature Source Oral Pulse Rate 72 Respiratory Rate 18 Respiratory Effort Normal Respiratory Pattern Normal Blood Pressure 128/83 H Blood Pressure Mean 98 Pulse Ox 98 Oxygen Delivery Method Room Air Positive well nourished and well developed General Appearance ED: well developed and NAD HEENT Reports TM's clear and moist mucous membranes normocephalic and atraumatic; Negative for trauma or tenderness Tympanic Membrane ED: Yes TM's clear Eyes PERRL and EOMs intact bilaterally General Eye ED: Negative for pale conjunctiva or scleral icterus Neck no lymphadenopathy, supple and no JVD General: Negative for tenderness Chest Wall inspection of chest normal and palpation of chest normal Chest: Negative for tenderness Resp normal respiratory effort and clear to auscultation bilaterally Effort and Inspection: Negative for respiratory distress or pain with movement Auscultation: Negative for rhonchi, wheezes or diminished lung sounds Cardio regular rate, regular rhythm, S1 normal heart sound, S2 normal heart sound and no murmurs Peripheral Pulses: pulses 2+ throughout GI normal to inspection, nondistended, normoactive bowel sounds, soft to palpation,non-tender, non-distended and no masses Back/Spine no CVA tenderness and no thoracic nor lumbar tenderness Extremity normal to inspection General Extremety ED: Negative for edema General Extremity: Negative for edema Neuro oriented x3, CN's II-XII intact bilaterally, no sensory deficits noted and gait normal Sensorium / Orientation: awake, alert, oriented to person, oriented to place andoriented to time Motor Exam: strength 5/5 throughout and strength abnormal Psych mental status grossly normal Skin no rashes or lesions noted and no wounds MDM MDM MDM Narrative Medical decision making narrative: Patient presents with elevated blood glucose after steroid injection for triggerfinger. Patient has had no vomiting or recent illness. CBC with differential obtained. She was ordered normal saline. CBC with differential obtained showedwhite count 7.2 with hemoglobin 12.6 and platelet count of 218. Chemistries were unremarkable. BUN 21 and creatinine 0.67. Anion gap was normal at 13. Blood glucose was 351. Urinalysis showed thousand glucose and 150 ketones. Patient was ordered 8 units of insulin subcu. Will observe her for an hour and then will discharge to home. Patient did have moderate acetone serum which may be more dehydrational. She is not in DKA. I advised her to increase her metformin to 1000 mg in the morning and 500 mg at night. Recommended close monitoring of her blood glucose and follow-up with her primary care physician within next 3 to 5 days. Lab Data Attestation: I reviewed the patient's lab results. Labs: Laboratory Results - last 24 hr 11/14/23 11/14/23 20:50 21:11 WBC 7.2 RBC 4.41 Hgb 12.6 Hct 38.0 MCV 86.2 MCH 28.6 MCHC 33.2 RDW Std Deviation 38.7 RDW Coeff of Jose Antonio 12.1 Plt Count 218 MPV 9.4 Immature Gran % (Auto) 0.300 Neut % (Auto) 48.5 Lymph % (Auto) 42.6 H Morris % (Auto) 7.1 Eos % (Auto) 0.8 Baso % (Auto) 0.7 Absolute Neuts (auto) 3.5 Absolute Lymphs (auto) 3.06 Nucleated RBC % 0 Sodium 136 Potassium 3.8 Chloride 102 Carbon Dioxide 21.0 Anion Gap 13 BUN 21 H Creatinine 0.67 Estim Creat Clear Calc 100.64 Est GFR (MDRD) Af Amer 132 Est GFR (MDRD) Non-Af 109 BUN/Creatinine Ratio 31.4 H Glucose 351 H Calcium 9.3 Urine Color Yellow Urine Clarity Clear Urine pH 5.0 Ur Specific Agra 1.015 Urine Protein Negative Urine Glucose (UA) 1000 H Urine Ketones 150 A* Urine Occult Blood Negative Urine Nitrite Negative Urine Bilirubin Negative Urine Urobilinogen Normal Ur Leukocyte Esterase Negative Urine RBC 0 SEEN Urine WBC 0 SEEN Ur Squamous Epith Cells 0 SEEN Urine Bacteria 0 SEEN Urine Mucus 0 SEEN Acetone Level MODERATE H Discharge Plan Triage Chief Complaint: Hyperglycemia ED Provider: Merry Tanner Dx/Rx/DC Orders Clinical Impression: Hyperglycemia Instructions: ED Diabetic Hyperglycemia Prescriptions: No Action cholecalciferol (vitamin D3) 25 mcg (1,000 unit) capsule 25 mcg PO DAILY levothyroxine 112 mcg tablet 112 mcg PO DAILY pimecrolimus 1 % cream 1 applic topical ONCE Patient Comments: START APPLYING TO THE AFFECTED LESIONS ON THE FACE ONCE A DAY aspirin 81 mg tablet,delayed release (DR/EC) 81 mg PO DAILY rosuvastatin 10 mg tablet 10 mg PO DAILY metformin 500 mg tablet 500 mg PO BID (DME) pen needle, diabetic [BD Ultra-Fine Angie Pen Needle] 32 gauge x 5/32 needle See Dose Instructions .ROUTE .MEDSUPPLY Qty: 100 11RF Dose Instruction: As directed Rx Instructions: use with insulin pen (DME) lancets [FreeStyle Lancets] 28 gauge misc See Dose Instructions .ROUTE .MEDSUPPLY Qty: 60 11RF Dose Instruction: As directed Rx Instructions: use to check BG bid Freestyle Lancing device See Rx Instructions .ROUTE .COMPLEX Qty: 1 0RF Dose Instruction: use with lancets to corrdinate with Glucometer ; Rx Instructions: use with lancets to corrdinate with Glucometer ; liothyronine 5 mcg tablet 5 mcg PO DAILY Qty: 30 11RF (DME) FreeStyle Lite Strips strip See Dose Instructions .ROUTE .MEDSUPPLY Qty: 120 11RF Dose Instruction: As directed Rx Instructions: use to check BG 4 x qd Primary Care Provider: Cindy Hernandez GREEN CHAINER Referrals: Cindy Hernandez GREEN CHAINER, GREEN CHAINER-C [Primary Care Provider] - 3-5 Days Activity Restrictions/Additional Instructions: Increase your metformin to 1000 mg in the morning and 500 mg at night until yourblood sugars moderate. Disposition Disposition: Home, Self Care What to do if you have Problems For any increased pain, shortness of breath, bleeding, nausea or vomiting, chestpain, or any unexpected problems, contact your Primary Care Provider. Call [facility] ([phone]) or report to the closest Emergency Room. Call 911 if necessary. 11/14/23 2321 <Electronically signed by Merry Tanner DO> Cosigner Signature (if applicable): CC: GREEN CHAINER-C Cindy Hernandez ~ Signed [facility] Work Phone: [phone] 579-811504-17-2024 Hospital Discharge instructions Additional Instructions Increase your metformin to 1000 mg in the morning and 500 mg at night until your blood sugars moderate.[facility] Work Phone: [phone] 899-431504-16-2024 NoteHNO ID: [id number] Author: INDIRA FERNANDO PA-C Service: ? Author Type: Physician Caustic Strength Inspector Type: Progress Notes Filed: 11/13/2023 09:32 Note Text: New patient referred by self for R hand concerns. HPI: Ms. Velasquez is a R hand dominant 33 year old year old female who is active, with a chief complaint of R middle finger clicking and locking. The symptoms have been going on for months. Pt states it started with clicking but now she can flex the R middle finger and there is pain. No antecedent trauma, the patient is diabetic with her last A1C of 6.7. Other complaints include none. Evaluation has included none. Treatment to date has included none. The current pain is rated a 8/10 and interferes with ADL. 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 Mona-3 Fatty Acids, FISH OIL, (FISH OIL) 360-1,200 mg cap Take 1 capsule by mouth daily with breakfast. rosuvastatin (CRESTOR) 10 mg tablet Take 1 tablet by mouth every afternoon. sertraline (ZOLOFT) 50 mg tablet Take 50 mg by mouth once daily. levothyroxine (SYNTHROID) 112 mcg tablet Take 112 mcg by mouth daily before breakfast. cholecalciferol (VITAMIN D) 1,000 unit tab tablet Take 1,000 Units by mouth once daily. liothyronine (CYTOMEL) 5 mcg tablet Take 5 mcg by mouth once daily. metFORMIN ER (GLUCOPHAGE XR) 500 mg 24 hr tablet Take 1 tablet by mouth twice daily with meals. 60 tablet 2 ENSKYCE 0.15-0.03 mg per tablet Take 1 tablet by mouth every afternoon. Lcapkmbxgnruudw-Cbwdzcuig-TT (BROMFED DM) 2-30-10 mg/5 mL syrup Take 10 mL by mouth four times daily as needed. 200 mL 0 benzonatate (TESSALON PERLE) 100 mg capsule Take 2 capsules by mouth three times daily as needed. (Patient not taking: Reported on 06/13/2019 ) 30 capsule 0 levothyroxine (SYNTHROID) 100 mcg tablet Take 100 mcg by mouth daily before breakfast. (Patient not taking: Reported on 04/18/2023) desogestrel-ethinyl estradiol (ENSKYCE ORAL) Take 1 tablet by mouth once daily. (Patient not taking: Reported on 04/18/2023) benzonatate (TESSALON PERLE) 100 mg capsule Take 2 capsules by mouth three times daily as needed. (Patient not taking: Reported on 10/26/2018 ) 30 capsule 0 blood sugar diagnostic (FREESTYLE INSULINX TEST STRIPS) test strip Test blood sugar(s) 3 times daily. Dx: Type 2 DM - Uncontrolled E11.65 Insulin: No 150 Strip 2 Blood-Glucose Meter (FREESTYLE INSULINX) [place] Dx: Type 2 DM - Uncontrolled E11.65 1 Each 0 lancets (FREESTYLE LANCETS) 28 gauge [facility] Test blood sugar(s) 2 times daily. Dx: Type 2 DM - Uncontrolled E11.65 Insulin: No (Patient taking differently: Test blood sugar(s) 3 times daily. Dx: Type 2 DM - Uncontrolled E11.65 Insulin: No ) 100 Each 2 No current facility-administered medications for this visit. ALLERGIES Allergen Reactions Rey Ordoñez [Othe* Other: See Comments Face breaks out in purple spots when she eats rey ordoñez. All medical history, medications and allergies have been discussed with the patient today. ROS: REVIEW OF SYMPTOMS: Constitutional: patient denies any recent fever or significant change in weight Gastrointestinal: patient denies any current abdominal discomfort Musculoskeletal: as noted in the HPI Neurologic: as noted in the HPI SOCIAL HISTORY: Tobacco Use: Quit 02/27/2017. Types: Cigarettes Physical Examination: Ms. Velasquez is a healthy appearing female in no acute distress. Bilateral upper limbs have equal and intact peripheral pulses. Skin does not demonstrate any rashes or lesions. Positive tenderness to palpation over the R middle finger A1 ricardo and + clicking of the involved digits, no locking. The extensor tendons all track centrally. Assessment: Trigger middle finger of right hand (primary encounter diagnosis) Plan: I discussed with Ms. Velasquez the diagnosis and different treatment options. We discussed observation, splinting, cortisone injections and surgical release. The patient would like to try cortisone injections. Pt will monitor her blood glucose closely for the next week. RTC 2 months. Additional Injections: R long A1 for trigger finger Informed Consent Consent Obtained: Verbal Souris Protocol A moment to CARE was completed. SIGN IN Personnel directly involved with the procedure wore the appropriate PPE. Special Equipment: N/A Patient/Surrogate Stated/Verified: Patient name, Date of , Relevant allergies and Intended procedure TIME OUT Intended patient and procedure match the source document(s). No relevant labs, photos, and/or imaging studies were applicable for review. Correct side/site marked and visible. Medications required for procedure verified. No fire risk assessment and interventions applicable. No implant(s) inserted. 11/13/2023 9:32 AM The procedure site was prepped in the usual (more content not included)... [facility]04-16-2024 History of Present illness Narrative* Indira Fernando PA-C - 11/13/2023 9:16 AM EDTAssociated Order(s): Additional Injections: R long A1 Post-Procedure Diagnose(s): Trigger middle finger of right hand New patient referred by self for R hand concerns. HPI: Ms. Velasquez is a R hand dominant 33 year old year old female who is active, with a chief complaint of R middle finger clicking and locking. The symptoms have been going on for months. Pt states it started with clicking but now she can flex the R middle finger and there is pain. No antecedent trauma, the patient is diabetic with her last A1C of 6.7. Other complaints include none. Evaluation has included none. Treatment to date has included none. The current pain is rated a 8/10 and interferes with ADL. 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 Mona-3 Fatty Acids, FISH OIL, (FISH OIL) 360-1,200 mg cap Take 1 capsule by mouth daily with breakfast. rosuvastatin (CRESTOR) 10 mg tablet Take 1 tablet by mouth every afternoon. sertraline (ZOLOFT) 50 mg tablet Take 50 mg by mouth once daily. levothyroxine (SYNTHROID) 112 mcg tablet Take 112 mcg by mouth daily before breakfast. cholecalciferol (VITAMIN D) 1,000 unit tab tablet Take 1,000 Units by mouth once daily. liothyronine (CYTOMEL) 5 mcg tablet Take 5 mcg by mouth once daily. metFORMIN ER (GLUCOPHAGE XR) 500 mg 24 hr tablet Take 1 tablet by mouth twice daily with meals. 60 tablet 2 ENSKYCE 0.15-0.03 mg per tablet Take 1 tablet by mouth every afternoon. Ipdyzltqmilzlol-Hbjdmygit-SD (BROMFED DM) 2-30-10 mg/5 mL syrup Take 10 mL by mouth four times daily as needed. 200 mL 0 benzonatate (TESSALON PERLE) 100 mg capsule Take 2 capsules by mouth three times daily as needed. (Patient not taking: Reported on 06/13/2019 ) 30 capsule 0 levothyroxine (SYNTHROID) 100 mcg tablet Take 100 mcg by mouth daily before breakfast. (Patient nottaking: Reported on 04/18/2023) desogestrel-ethinyl estradiol (ENSKYCE ORAL) Take 1 tablet by mouth once daily. (Patient not taking: Reported on 04/18/2023) benzonatate (TESSALON PERLE) 100 mg capsule Take 2 capsules by mouth three times daily as needed. (Patient not taking: Reported on 10/26/2018 ) 30 capsule 0 blood sugar diagnostic (FREESTYLE INSULINX TEST STRIPS) test strip Test blood sugar(s) 3 times daily. Dx: Type 2 DM - Uncontrolled E11.65 Insulin: No 150 Strip 2 Blood-Glucose Meter (FREESTYLE INSULINX) [place] Dx: Type 2 DM - Uncontrolled E11.65 1 Each 0 lancets (FREESTYLE LANCETS) 28 gauge misc Test blood sugar(s) 2 times daily. Dx: Type 2 DM - Uncontrolled E11.65 Insulin: No (Patient taking differently: Test blood sugar(s) 3 times daily. Dx: Type 2DM - Uncontrolled E11.65 Insulin: No ) 100 Each 2 No current facility-administered medications for this visit. ALLERGIES Allergen Reactions Rey Ordoñez [Othe* Other: See Comments Face breaks out in purple spots when she eats rey ordoñez. All medical history, medications and allergies have been discussed with the patient today. ROS: REVIEW OF SYMPTOMS: Constitutional: patient denies any recent fever or significant change in weight Gastrointestinal: patient denies any current abdominal discomfort Musculoskeletal: as noted in the HPI Neurologic: as noted in the HPI SOCIAL HISTORY: Tobacco Use: Quit 02/27/2017. Types: Cigarettes Physical Examination: Ms. Velasquez is a healthy appearing female in no acute distress. Bilateral upper limbs have equal and intact peripheral pulses. Skin does not demonstrate any rashes or lesions. Positive tenderness to palpation over the R middle finger A1 ricardo and + clicking of the involved digits, no locking. The extensor tendons all track centrally. Assessment: Trigger middle finger of right hand (primary encounter diagnosis) Plan: I discussed with Ms. Velasquez the diagnosis and different treatment options. We discussed observation, splinting, cortisone injections and surgical release. The patient would like to try cortisone injections. Pt will monitor her blood glucose closely for the next week. RTC 2 months. Additional Injections: R long A1 for trigger finger Informed Consent Consent Obtained: Verbal Souris Protocol A moment to CARE was completed. SIGN IN Personnel directly involved with the procedure wore the appropriate PPE. Special Equipment: N/A Patient/Surrogate Stated/Verified: Patient name, Date of , Relevant allergies and Intended procedure TIME OUT Intended patient and procedure match the source document(s). No relevant labs, photos, and/or imaging studies were applicable for review. Correct side/site marked and visible. Medications required for procedure verified. No fire risk assessment and interventions applicable. No implant(s) inserted. 11/13/2023 9:32 AM The procedure site was prepped in the usual sterile fashion. Medications: 3 mg betamethasone acetate-betamethasone sodium phosphate 6 mg/mL Anesthetics: 0.5 mL lidocaine (PF) 10 mg/mL (1 %) Outcome: tolerated well, no immediate complications Post-injection instructions were reviewed with the patient and the patient voiced understanding of these instructions. SIGN OUT All instruments, equipment, possible retained foreign bodies accounted for. Indira Fernando PA-C November 13, 2023 9:30 AM documented in this encounterSt. [facility] History of Present illness Narrative* Dionna Trevino PA-C - 04/18/2023 8:19 AM EDT This note was created using Tribe. Subjective Brit Velasquez is a 32 year old female. HPI Patient presents with a chief complaint of nasal congestion, cough, sore throat, body aches, chillsover the past 6 days. She does not think she has had a fever. She does have history of type 2 diabetes, high cholesterol, hypothyroidism. She denies chest pain or shortness of breath. She has had copious nasal congestion. She has tried cough drops [id number]. No vomiting. She has had some diar omar. She states multiple people at her work are ill. Review of Systems Constitutional: Positive for chills and fatigue. Negative for fever. HENT: Positive for congestion, postnasal drip, rhinorrhea and sore throat. Negative for ear pain. Respiratory: Positive for cough. Negative for chest tightness, shortness of breath and wheezing. Cardiovascular: Negative. Gastrointestinal: Positive for diarrhea. Negative for abdominal pain, nausea and vomiting. Genitourinary: Negative. Musculoskeletal: Positive for myalgias. Skin: Negative. All other systems reviewed and are negative. 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 levothyroxine (SYNTHROID) 112 mcg tablet Take 112 mcg by mouth daily before breakfast. cholecalciferol (VITAMIN D) 1,000 unit tab tablet Take 1,000 Units by mouth once daily. liothyronine (CYTOMEL) 5 mcg tablet Take 5 mcg by mouth once daily. metFORMIN ER (GLUCOPHAGE XR) 500 mg 24 hr tablet Take 1 tablet by mouth twice daily with meals. 60 tablet 2 blood sugar diagnostic (FREESTYLE INSULINX TEST STRIPS) test strip Test blood sugar(s) 3 times daily. Dx: Type 2 DM - Uncontrolled E11.65 Insulin: No 150 Strip 2 Blood-Glucose Meter (FREESTYLE INSULINX) mis Dx: Type 2 DM - Uncontrolled E11.65 1 Each 0 rosuvastatin (CRESTOR) 10 mg tablet Take 1 tablet by mouth every afternoon. Kbuptjkkwfucheo-Yqxwlfelo-AP (BROMFED DM) 2-30-10 mg/5 mL syrup Take 10 mL by mouth four times daily as needed. 200 mL 0 benzonatate (TESSALON PERLE) 100 mg capsule Take 2 capsules by mouth three times daily as needed. (Patient not taking: Reported on 06/13/2019 ) 30 capsule 0 levothyroxine (SYNTHROID) 100 mcg tablet Take 100 mcg by mouth daily before breakfast. (Patient nottaking: Reported on 04/18/2023) desogestrel-ethinyl estradiol (ENSKYCE ORAL) Take 1 tablet by mouth once daily. (Patient not taking: Reported on 04/18/2023) benzonatate (TESSALON PERLE) 100 mg capsule Take 2 capsules by mouth three times daily as needed. (Patient not taking: Reported on 10/26/2018 ) 30 capsule 0 lancets (FREESTYLE LANCETS) 28 gauge misc Test blood sugar(s) 2 times daily. Dx: Type 2 DM - Uncontrolled E11.65 Insulin: No (Patient taking differently: Test blood sugar(s) 3 times daily. Dx: Type 2DM - Uncontrolled E11.65 Insulin: No ) 100 Each 2 No current facility-administered medications for this visit. PAST SURGICAL HISTORY Procedure Laterality Date NONE FAMILY HISTORY Problem Relation Age of Onset None Mother Hypertension Father Hyperlipidemia Father None Sister Social History Tobacco Use Smoking status: Former Types: Cigarettes Quit date: 02/27/2017 Years since quittin.1 Smokeless tobacco: Never Substance Use Topics Alcohol use: No Drug use: No Objective BP 102/64 Pulse 60 Temp 36.3 C (97.3 F) (Tympanic) Resp 18 Wt 56.6 kg (124 lb 12.8 oz) LMP 05/30/2017 (Within Weeks) SpO2 100% BMI 21.70 kg/m Physical Exam Vitals reviewed. Constitutional: Appearance: Normal appearance. HENT: Head: Normocephalic and atraumatic. Right Ear: Tympanic membrane, ear canal and external ear normal. Left Ear: Tympanic membrane, ear canal and external ear normal. Nose: Congestion present. Mouth/Throat: Mouth: Mucous membranes are moist. Pharynx: Oropharynx is clear. Posterior oropharyngeal erythema present. Cardiovascular: Rate and Rhythm: Normal rate and regular rhythm. Heart sounds: Normal heart sounds. Pulmonary: Effort: Pulmonary effort is normal. Breath sounds: Normal breath sounds. Musculoskeletal: Cervical back: Neck supple. Skin: General: Skin is warm and dry. Findings: No rash. Neurological: Mental Status: She is alert. Assessment and Plan ASSESSMENT/PLAN: 1. Acute URI - ICD9: 465.9, ICD10: J06.9 - Discussed viral etiology and rationale for treatment. -Patient is past the window for antiviral treatment for COVID/influenza. Bromfed since her symptoms. - Symptomatic treatment with prn analgesia - Supportive care with fluids and rest - Follow up in 3-5 days if symptoms persist or sooner if worsening of symptoms - STREP A MOLECULAR (POC) - COVID & INFLUENZA A/B NAAT, ROUTINE Dionna Trevino PA-C documented in this encounterSt. [facility]03-[facility]-[address] Leach [facility] October 07, 2022 1:07pm Note Date/Time October 07, 2022 12: 47pm [facility] Medical Records Department [address] [place] [address] Discharge Summary 10/07/22 1059 MR#: [id number] Acct: [id number] Name: RONBRIT K Rep #:[id number] : 1990 32 From: Teddy Guthrie PCP: TOSHIA Gallo Sta tus:ADM LUCIA Location: [place] [address] Providers Date of Admission: 10/06/22 Primary Care Physician: TOSHIA Gallo Reason For Visit: CVA/TIA VS COMPLEX MIGRAINE Diagnosis Discharge Diagnosis (1) Neurological deficit, transient: Status: Acute Code(s): R29.818 - Other symptoms and signs involving the nervous system Plan The patient is a 32 y/o F admitted for evaluation of left-sided weakness for over an hour prior to ED arrival. Started with tingling sensation in left foot progressed to entire left side of body, feeling weak progressed to left arm feeling weaker along with trouble speaking mainly dysarthria. Symptoms lasted for 30 minutes and completely resolved in ED. Patient never had a stroke like symptoms before. #1. Left-sided hemiplegia and paresthesias as well as dysarthria, transient concerning for TIA/CVA versus possible complex migraine with history of migraines: Patient is being admitted in PCU. CT head and CTA today neck reported no acute abnormality, in fact normal. She has no risk factors of stroke including diabetes mellitus type 2, control pill, dyslipidemia and is also history of migraine. Patient was evaluated by [facility] neurologist and impression is complicated migraine,TIA/stroke less likely but cannot be ruled out. MRI brain does not show acute intracranial abnormality. 2D echo reported EF 55% bubble contrast study positive for PFO. Normal right and left atrium. EF 55%. Patient advised to follow-up with neurologist Dr. Robles in 2 weeks. Patient also advised to switch from hormonal contraceptive to nonhormonal at this is risk for migraine frequent attack, DVT/PE and other metabolic disease. Magnesium 1.6, mild hypomagnesemia. IV magnesium replaced. Patient is advised to follow-up with PCP for PFO and we can refer to corsetier if patient wants for second opinion. This was communicated to the patient. #2. Hypothyroidism with history of Graves' disease: Status post prior thyroidectomy, we will continue patient home levothyroxine regimen, TSH 6.51 butfree T4 normal 1.19, levothyroxine dose increased from 112 225 mcg daily. Continue liothyronine. #3. Hyperlipidemia: continue patient on statin therapy, FLP LDL 79, TG 105. HDL 56. Continue rosuvastatin. #4. Diabetes mellitus type II: A1c 6.4. Good glycemic control. Continue home dose. Follow with PCP. #5. Former tobacco use: Encourage continued tobacco cessation. EtOH level pending. #6. Former alcohol abuse: Encouraged continued sobriety. #7. MARIAH: CPAP nightly. #8. DVT prophylaxis: Lovenox. #9. CODE STATUS: Full code. Laboratory Results 10/06/22 20:12: POC Glucose 189 H 10/06/22 20:18: WBC 4.5, RBC 4.55, Hgb 13.5, Hct 40.0, MCV 87.9, MCH 29.7, MCHC 33.8, RDW Std Deviation 39.2, RDW Coeff of Jose Antonio 12.2, Plt Count 193, MPV 9.2, Immature Gran % (Auto) 0.200, Neut % (Auto) 46.2 L, Lymph % (Auto) 41.6 H, Morris % (Auto) 9.6, Eos % (Auto) 2.0, Baso % (Auto) 0.4, Absolute Neuts (auto) 2.1, Absolute Lymphs (auto) 1.87, Nucleated RBC % 0 10/06/22 20:18: PT 12.2, INR 0.9, APTT 26.0 10/06/22 20:18: Sodium 135 L, Potassium 3.8, Chloride 99, Carbon Dioxide 29.0, Anion Gap 7, BUN 20 H, Creatinine 0.84, Estim Creat Clear Calc 81.01, Est GFR (MDRD) Af Amer 103, Est GFR (MDRD) Non-Af 85, BUN/Creatinine Ratio 23.9 H, [id number] H, Calcium 10.3 H, Troponin I High Sens < 3 L 10/06/22 20:18: Serum , Qual NEGATIVE 10/06/22 20:18: Magnesium 1.6 10/06/22 20:18: Ethyl Alcohol < 3.0 10/07/22 06:45: POC Glucose 137 H Medications at Discharge Home Medications pen needle, diabetic 32 gauge x 5/32 (BD Ultra-Fine Angie Pen Needle) #100 ea 03/12/18 Freestyle Lancing device See Rx Instructions .Route .COMPLEX ##1 08/29/18 lancets 28 gauge (FreeStyle Lancets) #60 ea 08/29/18 desogestrel 0.15 mg-ethinyl estradiol 0.03 mg tablet (Enskyce) 1 tab PO DAILY 10/08/18 liothyronine 5 mcg tablet 5 mcg PO DAILY #30 tabs 12/20/18 FreeStyle Lite Strips (blood sugar diagnostic) #120 ea 12/24/18 cholecalciferol (vitamin D3) 1,250 mcg (50,000 unit) capsule See Rx Instructions.Route .COMPLEX #14 caps 01/21/19 levothyroxine 100 mcg tablet 112 mcg PO DAILY 10/06/22 metformin 500 mg tablet 500 mg PO BID 10/06/22 rosuvastatin 10 mg tablet 10 mg PO DAILY 10/06/22 levothyroxine 125 mcg tablet 125 mcg PO DAILY #30 tabs 10/07/22 Physical Exam Narrative Seen and examined. Patient symptoms of left-sided tingling and numbness has resolved. Currently patient is asymptomatic. She has history of migraine usually she has retrobulbar pain and usually pain lasts for 4 to 5 hours sometimes for the wholeday. She is not on migraine prophylaxis pill and has not seen neurologist. Physical exam General: Alert, Oriented x3, Cooperative HEENT: Atraumatic, PERRLA, EOMI, Normocephalic Oral: No Gingival or Mucosal Lesions/ Ulcerations Neck: Supple, No JVD, Negative Carotid Bruits Lungs: Air entry equal in bilateral lung bases. No crepitation/rhonchi Cardiovascular: Regular rate, Regular Rhythm, Normal S1, Normal S2, No murmurs Abdomen: Bowel Sounds Present, Soft, Non Tender, Non-Distended : No renal angle tenderness. No suprapubic tenderness. Extremities: No edema, Capillary Refill Less than 3 Seconds Skin: No rashes, No breakdown Musculoskeletal: No Tenderness to Palpation of Joints or Extremities Neurological: Cranial nerves II-XII grossly intact, DTR 2+/4 and Symmetrical, Neuro grossly intact Psych/Mental Status: Normal Affect, Appropriate. Weight / BMI Weight Weight: 121 lb 7.595 oz Body Mass Index (BMI) 21.5 ABG / Lab / Microbiology Data Result Diagrams: 10/07/22 06:42 10/07/22 06:42 Laboratory: Laboratory Results - last 24 hr 10/06/22 20:12: POC Glucose 189 H 10/06/22 20:18: WBC 4.5, RBC 4.55, Hgb 13.5, Hct 40.0, MCV 87.9, MCH 29.7, MCHC 33.8, RDW Std Deviation 39.2, RDW Coeff of Jose Antonio 12.2, Plt Count 193, MPV 9.2, Immature Gran % (Auto) 0.200, Neut % (Auto) 46.2 L, Lymph % (Auto) 41.6 H, Morris % (Auto) 9.6, Eos % (Auto) 2.0, Baso % (Auto) 0.4, Absolute Neuts (auto) 2.1, Absolute Lymphs (auto) 1.87, Nucleated RBC % 0 10/06/22 20:18: PT 12.2, INR 0.9, APTT 26.0 10/06/22 20:18: Sodium 135 L, Potassium 3.8, Chloride 99, Carbon Dioxide 29.0, Anion Gap 7, BUN 20 H, Creatinine 0.84, Estim Creat Clear Calc 81.01, Est GFR (MDRD) Af Amer 103, Est GFR (MDRD) Non-Af 85, BUN/Creatinine Ratio 23.9 H, Glucose 193 H, Calcium 10.3 H, Troponin I High Sens < 3 L 10/06/22 20:18: Serum , Qual NEGATIVE 10/06/22 20:18: Magnesium 1.6 10/06/22 20:18: Ethyl Alcohol < 3.0 10/07/22 06:42: WBC 3.7 L, RBC 4.25, Hgb 12.5, Hct 37.0, MCV 87.1, MCH 29.4, MCHC 33.8, RDW Std Deviation 39.6, RDW Coeff of Jose Antonio 12.3, Plt Count 174, MPV 9.2, Immature Gran % (Auto) 0.000, Neut % (Auto) 42.5 L, Lymph % (Auto) 46.5 H, Morris % (Auto) 8.6, Eos % (Auto) 1.6, Baso % (Auto) 0.8, Absolute Neuts (auto) 1.6 L, Absolute Lymphs (auto) 1.73, Nucleated RBC % 0 10/07/22 06:42: Sodium 138, Potassium 3.7, Chloride 103, Carbon Dioxide 28.0, Anion Gap 7, BUN 13, Creatinine 0.53 L, Estim Creat Clear Calc 128.39, Est GFR (MDRD) Af Amer 174, Est GFR (MDRD) Non-Af 144, BUN/Creatinine Ratio 24.5 H, Glucose 133 H, Calcium 8.6, Total Bilirubin 0.30, AST 6 L, ALT 14, Alkaline Phosphatase 36 L, Total Protein 6.3 L, Albumin 3.1 L, Globulin 3.2, Albumin/Globulin Ratio 1.0, Triglycerides 105, Cholesterol 156, LDL Cholesterol 79, VLDL Cholesterol 21, HDL Cholesterol 56, TSH 6.51 H, Free T4 1.19 10/07/22 06:42: Hemoglobin A1c 6.4 H 10/07/22 06:45: POC Glucose 137 H Radiography Diagnostic Testing: Radiology Impression Brain CT 10/06/22 20:10 IMPRESSION: Normal unenhanced CT scan of the brain. [employer] was utilized to assist in identifying pertinent positive findings in this case. Electronically Signed: Eitan Coffman DO at 20:46 EST Reading Location ID and State: [employer] [facility] [employer] Tel [phone], Service support , ADDENDUM: 10/06/222052 IMPRESSION: Normal unenhanced CT scan of the brain. [facility] was utilized to assist in identifying pertinent positive findings in this case. N.B. : The above Results were Read Back by Eitan Coffman DO to Barron Lopez MD, and understanding confirmed on 2022 20:46:26 (ET). Electronically Signed: Eitan Coffman DO at 20:46 EST Reading Location ID and State: [employer] [facility] [employer] Tel [phone], Service support , Head/Neck CTA 10/06/22 20:11 IMPRESSION: Normal CTA Head and neck with contrast. Electronically Signed: Eitan Coffman DO at 21:02 EST Reading Location ID and State: [employer] [facility] [employer] Tel [phone], Service support , ADDENDUM: 10/06/222111 IMPRESSION: Normal CTA Head and neck with contrast. N.B. : The above Results were Read Back by Eitan Coffmna DO to Barron Lopez MD, and understanding confirmed on 2022 21:05:39 (ET). Electronically Signed: Eitan Coffman DO at 21:02 EST Reading Location ID and State: [address] [place] [address] Tel [phone], Service support , Chest X-Ray 10/06/22 20:31 IMPRESSION: Normal x-ray examination of the chest. Electronically Signed: Eitan Coffman DO at 21:03 EST Reading Location ID and State: [address] [place] [address] Tel [phone], Service support , D/C Instructions Discharge Diet: Low fat / Low cholesterol and 1800 Calorie Control Diet Weight Bearing Status: Weight bearing as tolerated Call your doctor if you observe: Fever of 101 or Higher, Coldness, Increased Pain, Numbness or Tingling, Change in Color, Inability to urinate, Inability to have a bowel movement, Using more than 1 pad per hour, Shortness of breath, Dizziness, Fainting spells, Swelling in the ankles, Chest pain, Prolonged hiccupping, Increased palpitations (irregular heartbeat) and Calf discomfort When: IN 2 WEEKS Meaningful Use Info Meaningful Use Diagnoses (Choose all that apply): None applicable Discharge Plan Admission Admit Date/Time: 10/06/22 21:17 Primary Reason for Your Visit: Most likely complicated migraine Attending Provider: Teddy Leach Primary Care Provider: Cindy Hernandez [employer] Consulting Providers: Danni Kearns Instructions Additional Instructions / Restrictions: The patient has [facility] Hold control pill advised to switch to alternative nonhormonal contraceptive. Patient can have ibuprofen 400 to 600 mg every 8 hourly for acute migraine headache onset at home Discharge Orders/Prescriptions Prescriptions: New levothyroxine 125 mcg tablet 125 mcg PO DAILY Qty: 30 1RF Continued metformin 500 mg Tablet 500 mg PO BID rosuvastatin 10 mg tablet 10 mg PO DAILY levothyroxine 100 mcg tablet 112 mcg PO DAILY (DME) pen needle, diabetic [BD Ultra-Fine Angie Pen Needle] 32 gauge x /32 needle See Dose Instructions .ROUTE .MEDSUPPLY Qty: 100 11RF Dose Instruction: As directed Rx Instructions: use with insulin pen (DME) lancets [FreeStyle Lancets] 28 gauge misc See Dose Instructions .ROUTE .MEDSUPPLY Qty: 60 11RF Dose Instruction: As directed Rx Instructions: use to check BG bid Freestyle Lancing device See Rx Instructions .ROUTE .COMPLEX Qty: 1 0RF Dose Instruction: use with lancets to corrdinate with Glucometer ; Rx Instructions: use with lancets to corrdinate with Glucometer ; liothyronine 5 mcg tablet 5 mcg PO DAILY Qty: 30 11RF (DME) FreeStyle Lite Strips strip See Dose Instructions .ROUTE .MEDSUPPLY Qty: 120 11RF Dose Instruction: As directed Rx Instructions: use to check BG 4 x qd cholecalciferol (vitamin D3) 50,000 unit capsule See Rx Instructions .ROUTE .COMPLEX Qty: 14 0RF Dose Instruction: take 1 capsule by mouth every week Rx Instructions: take 1 capsule by mouth every week Held desogestrel-ethinyl estradiol [Enskyce] 0.15-0.03 mg tablet 1 tab PO DAILY Hold Instructions: Hold for now until she talks to Credit Underwriter Referrals / Follow Up: Corby Robles MD [Non-Staff -Ordering Privileges] - Within 2 Weeks (Complicated Migraine) Cindy Hernandez NP, NP-C [Primary Care Provider] - Within 2 Weeks Disposition Disposition (needs filled in before D/C Order can be placed): Home, Self Care Charges/Coding Visit Charges Inpatient E&M: 01219 Disch Hosp >30min 10/07/22 1307 <Electronically signed by Teddy Leach MD> Cosigner Signature (if applicable): CC: TOSHIA Hernandez; Dr. Teddy Leach MD~ Signed [facility] Work Phone: 1(887) 632-474403-11-[address] Leach [facility] October 07, 2022 12:57pm Note Date/Time October 07, 2022 8:5 2am [facility] Medical Records Department [address] [place] [address] Instructions for Home/Discharge Instructions 10/07/22 0852 MR#: [id number] Acct: [id number] Name: BRIT VELASQUEZ Rep #:[id number] : 1990 32 From: Teddy Guthrie PCP: TOSHIA Gallo Sta tus:ADM LUCIA Discharge Instructions Diet Discharge Diet: Low fat / Low cholesterol and 1800 Calorie Control Diet Activity Discharge Activity: Return to Normal Activity Weight Bearing Status: Weight bearing as tolerated Dressing / Incision Call your doctor if you observe: Fever of 101 or Higher, Coldness, Increased Pain, Numbness or Tingling, Change in Color, Inability to urinate, Inability to have a bowel movement, Using more than 1 pad per hour, Shortness of breath, Dizziness, Fainting spells, Swelling in the ankles, Chest pain, Prolonged hiccupping, Increased palpitations (irregular heartbeat) and Calf discomfort Follow Up Care When: IN 2 WEEKS Test Results: Test results from this visit will be discussed in further detail at your follow- up appointment, if applicable. Discharge Plan Admission Admit Date/Time: 10/06/22 21:17 Primary Reason for Your Visit: Most likely complicated migraine Attending Provider: Teddy Leach Primary Care Provider: Cindy Hernandez NP Consulting Providers: Danni Kearns Instructions Additional Instructions / Restrictions: The patient has appointment with trestle mainternance lab[facility]. Hold control pill advised to switch to alternative nonhormonal contraceptive. Patient can have ibuprofen 400 to 600 mg every 8 hourly for acute migraine headache onset at home Discharge Orders/Prescriptions Prescriptions: Continued metformin 500 mg Tablet 500 mg PO BID rosuvastatin 10 mg tablet 10 mg PO DAILY levothyroxine 100 mcg tablet 112 mcg PO DAILY (DME) pen needle, diabetic [BD Ultra-Fine Angie Pen Needle] 32 gauge x 5/32 needle See Dose Instructions .ROUTE .MEDSUPPLY Qty: 100 11RF Dose Instruction: As directed Rx Instructions: use with insulin pen (DME) lancets [FreeStyle Lancets] 28 gauge misc See Dose Instructions .ROUTE .MEDSUPPLY Qty: 60 11RF Dose Instruction: As directed Rx Instructions: use to check BG bid Freestyle Lancing device See Rx Instructions .ROUTE .COMPLEX Qty: 1 0RF Dose Instruction: use with lancets to corrdinate with Glucometer ; Rx Instructions: use with lancets to corrdinate with Glucometer ; liothyronine 5 mcg tablet 5 mcg PO DAILY Qty: 30 11RF (DME) FreeStyle Lite Strips strip See Dose Instructions .ROUTE .MEDSUPPLY Qty: 120 11RF Dose Instruction: As directed Rx Instructions: use to check BG 4 x qd cholecalciferol (vitamin D3) 50,000 unit capsule See Rx Instructions .ROUTE .COMPLEX Qty: 14 0RF Dose Instruction: take 1 capsule by mouth every week Rx Instructions: take 1 capsule by mouth every week Held desogestrel-ethinyl estradiol [Enskyce] 0.15-0.03 mg tablet 1 tab PO DAILY Hold Instructions: Hold for now until she talks to Credit Underwriter Referrals / Follow Up: Cindy Hrenandez NP, TOSHIA [Primary Care Provider] - Within 2 Weeks Corby Robles MD [Non-Staff -Ordering Privileges] - Within 2 Weeks (Complicated Migraine) Disposition Disposition (needs filled in before D/C Order can be placed): Home, Self Care 10/07/22 1257<Electronically signed by Teddy Leach MD>Teddy Leach MD CC: TOSHIA Hernandez; Dr. Danni Kearns MD ~ Signed [facility] Work Phone: [phone]) 449-946203-11-2023 History and physical note Author Dr. Kearns [facility] 2022 10:36pm Note Date/Time 2022 9:2 7pm [facility] Medical Records Department [address] [place] [address] History & Physical Exam 10/06/222125 MR#: [id number] Acct: [id number] Name: BRIT VELASQUEZ Rep #:[id number] : 1990 32 From: Danni Kearns MD PCP: TOSHIA Gallo Sta tus:ADM LUCIA Location: [place] [address] HPI - General General Date of Admission: 10/06/22 Date of Service: 10/06/22 Chief Complaint: L sided weakness/paresthesias, dysarthria. HPI Narrative The patient is a 32 y/o F w/ PMHx: Diabetes mellitus type II, Graves disease s/pthyroidectomy, MARIAH, PCOS, HLD, Hypothyroidism, Former tobacco use, Former EtOH abuse, Chronic migraines who presents to the [facility] ED on 10/06/22 with history of onset approximately 1 hour prior to ED presentation left-sided weakness althoughit initially started with some mild tingling in the left foot but progressed up the entire left side of the body distally progressing up work with eventual upper extremity involvement as well which is more profound with also trouble speaking more consistent with dysarthria lasting approximately 30 minutes with complete resolution upon ED arrival with no history of symptoms like this prior with no headache associated but she does have an underlying history as noted of migraines. She has never had any prior history of complex or ocular migraines. She does report taking control. In the ED NIHSS 0 with no recurrence of symptoms. She was when it started out with her friends eating dinner for her 32th birthday. Work-up in the ED included T98.3, heart 85, BP 124/85, respiratory rate 16, 97% on room air, CBC with WBC 4.5, hemoglobin 13.5, platelet 193 without marked shift, coag unremarkable, BMP with Na 135, BUN/Cr 20/0.84, glucose 193, Ca 10.3, trop < 3, serum test negative, chest x-ray with no acute cardiopulmonary findings, CT brain with no acute intracranial findings, CTA head and neck with no acute findings, EKG with SR without acute evidence of ischemia. ED physician consulted Tele Stroke physician and awaiting their evaluation and recommendations. [facility] Medical History Chronic migraine Diabetes type 2, controlled Former tobacco use Graves disease History of alcohol abuse Hyperlipidemia Hyperthyroidism Hypothyroidism Mitral valve prolapse Polycystic ovarian disease Sleep apnea Vitamin deficiency Home Medications pen needle, diabetic 32 gauge x 5/32 (BD Ultra-Fine Angie Pen Needle) #100 ea 03/12/18 [Rx Last Taken Unknown] Freestyle Lancing device See Rx Instructions .Route .COMPLEX ##1 08/29/18 [Rx Last Taken Unknown] lancets 28 gauge (FreeStyle Lancets) #60 ea 08/29/18 [Rx Last Taken Unknown] desogestrel 0.15 mg-ethinyl estradiol 0.03 mg tablet (Enskyce) 1 tab PO DAILY 10/08/18 [History Last Taken Unknown] liothyronine 5 mcg tablet 5 mcg PO DAILY #30 tabs 12/20/18 [Rx Last Taken Unknown] FreeStyle Lite Strips (blood sugar diagnostic) #120 ea 12/24/18 [Rx Last Taken Unknown] cholecalciferol (vitamin D3) 1,250 mcg (50,000 unit) capsule See Rx Instructions.Route .COMPLEX #14 caps 01/21/19 [Rx Last Taken Unknown] levothyroxine 100 mcg tablet 112 mcg PO DAILY 10/06/22 [History Last Taken Unknown] metformin 500 mg tablet 500 mg PO BID 10/06/22 [History Last Taken Unknown] rosuvastatin 10 mg tablet 10 mg PO DAILY 10/06/22 [History Last Taken Unknown] Allergy/AdvReac Type Severity Reaction Status Date / Time No Known Allergies Allergy Verified 10/06/22 19:57 Family History Father Hypertension High cholesterol Mother Alcoholism Grandmother Arthritis Grandfather Cancer Surgical History Hx of thyroidectomy Social History (Updated 10/06/22 @ 22:[address] Danni Kearns MD) household members: significant other Smoking Status: Former smoker quit date: 07/30/16 Tobacco: How many years used: 9 how long ago did patient quit smoking: Quit 6-7 years prior, smoked 1 ppd sinceteen until quit. second hand exposure: No alcohol intake: former details: Former heavy drinker, sober 6-7 years. substance use type: does not use what type of physical activity do you participate in: walking, running, bicycling and weight training frequency: 3-4 times per week seatbelt use: always ROS ROS Narrative Admission Review of Systems: CONSTITUTIONAL: No weight loss, fever, chills, + weakness or fatigue. HEENT: Eyes: No visual loss, blurred vision, double vision or yellow sclerae. Ears, Nose, Throat: No hearing loss, sneezing, congestion, runny nose or sore throat. SKIN: No rash or itching, lesions, wounds. CARDIOVASCULAR: No chest pain, chest pressure or chest discomfort, palpitations,edema, orthopnea, syncopal events. RESPIRATORY: No shortness of breath, cough or sputum, wheezing, hemoptysis. GASTROINTESTINAL: No anorexia, nausea, vomiting or diarrhea, abdominal pain, melena, BRBPR. GENITOURINARY: No dysuria, frequency, urgency or retention. NEUROLOGICAL: + Left-sided paresthesias and focal weakness, history of migrainesbut currently no recent headache or migraine during this event, altered speech, no dizziness, syncope, change in bowel or bladder control, seizure. MUSCULOSKELETAL: No muscle, back pain, joint pain or stiffness. HEMATOLOGIC: No anemia, bleeding or bruising. LYMPHATICS: No enlarged nodes. No history of splenectomy. PSYCHIATRIC: No history of depression or anxiety. ENDOCRINOLOGIC: No reports of sweating, cold or heat intolerance. No polyuria orpolydipsia. ALLERGIES: No history of asthma, hives, eczema or rhinitis. Vital Signs Vital Signs Vital Signs: 10/06/22 19:54 10/06/22 20:07 10/06/22 20:10 Temperature 98.3 F 98.3 F Temperature Source Temporal Temporal Pulse Rate 95 85 Respiratory Rate 18 16 Respiratory Effort Normal Non-Labored Respiratory Pattern Normal Blood Pressure 142/97 H 124/85 H Blood Pressure Mean 112 98 Pulse Ox 98 97 Oxygen Delivery Method Room Air Room Air 10/06/22 20:40 10/06/22 21:10 Temperature Temperature Source Pulse Rate 77 70 Respiratory Rate 18 15 Respiratory Effort Respiratory Pattern Blood Pressure 124/87 H 110/78 Blood Pressure Mean 99 88 Pulse Ox 98 97 Oxygen Delivery Method Room Air Room Air Weight Weight: 123 lb Body Mass Index (BMI) 21.7 Physical Exam Narrative Physical Examination: General: Awake, alert, oriented x 3 and cooperative, seated upright in bed in noapparent distress, no evidence of any ongoing dysarthria. Skin: Normal color, normal turgor, no icterus, no cyanosis. HEENT: AT/NC, EOMI, PERRLA, MMM, no carotid bruits or JVD noted. Lungs: CTA bilaterally, moderate effort, no rales, ronchi or wheezing. Heart: Regular rate and rhythm; no gallop, rub audible. Abdomen: Soft, NTTP, ND, normal BS, no HSM. Extremities: No cyanosis, clubbing, or edema. Neurological: Patient awake, alert, oriented x 3, cognitive function intact; pupils equally reactive to light and accommodation, cranial nerves II-XII grossly normal, moving all 4 extremities, no focal deficits, strength preserved,sensation appropriate, finger-nose and ljgw-fa-agmc intact, equivocal Babinski, no evidence of any ongoing or persistent dysarthria or aphasia. Psychiatric: Affect appears normal, no acute evidence of depressive or anxiety feelings. Results Lab / Micro Data Result Diagrams: 10/06/22 20:18 10/06/22 20:18 Labs: Laboratory Results - last 24 hr 10/06/22 20:12: POC Glucose 189 H 10/06/22 20:18: WBC 4.5, RBC 4.55, Hgb 13.5, Hct 40.0, MCV 87.9, MCH 29.7, MCHC 33.8, RDW Std Deviation 39.2, RDW Coeff of Jose Antonio 12.2, Plt Count 193, MPV 9.2, Immature Gran % (Auto) 0.200, Neut % (Auto) 46.2 L, Lymph % (Auto) 41.6 H, Morris % (Auto) 9.6, Eos % (Auto) 2.0, Baso % (Auto) 0.4, Absolute Neuts (auto) 2.1, Absolute Lymphs (auto) 1.87, Nucleated RBC % 0 10/06/22 20:18: PT 12.2, INR 0.9, APTT 26.0 10/06/22 20:18: Sodium 135 L, Potassium 3.8, Chloride 99, Carbon Dioxide 29.0, Anion Gap 7, BUN 20 H, Creatinine 0.84, Estim Creat Clear Calc 81.01, Est GFR (MDRD) Af Amer 103, Est GFR (MDRD) Non-Af 85, BUN/Creatinine Ratio 23.9 H, Glucose 193 H, Calcium 10.3 H, Troponin I High Sens < 3 L 10/06/22 20:18: Serum , Qual NEGATIVE Radiology Impression Brain CT 10/06/22 20:10 IMPRESSION: Normal unenhanced CT scan of the brain. AIDOC was utilized to assist in identifying pertinent positive findings in this case. Electronically Signed: Eitan Coffman DO at 20:46 EST Reading Location ID and State: [address] [place] [address] Tel [phone], Service support , ADDENDUM: 10/06/222052 IMPRESSION: Normal unenhanced CT scan of the brain. AIDOC was utilized to assist in identifying pertinent positive findings in this case. N.B. : The above Results were Read Back by Eitan Coffman DO to Barron Lopez MD, and understanding confirmed on 2022 20:46:26 (ET). Electronically Signed: Eitan Coffman DO at 20:46 EST , Head/Neck CTA 10/06/22 20:11 IMPRESSION: Normal CTA Head and neck with contrast. Electronically Signed: Eitan Coffman DO at 21:02 EST , ADDENDUM: 10/06/222111 IMPRESSION: Normal CTA Head and neck with contrast. N.B. : The above Results were Read Back by Eitan Coffman DO to Barron Lopez MD, and understanding confirmed on 2022 21:05:39 (ET). Electronically Signed: Eitan Coffman DO at 21:02 EST , Chest X-Ray 10/06/22 20:31 IMPRESSION: Normal x-ray examination of the chest. Electronically Signed: Eitan Coffman DO at 21:03 EST , Assessment & Plan Assessment/Plan (1) Neurological deficit, transient: PLAN: Plan The patient is a 32 y/o F w/ PMHx: Diabetes mellitus type II, Graves disease s/pthyroidectomy, MARIAH, PCOS, HLD, Hypothyroidism, Former tobacco use, Former EtOH abuse, Chronic migraines who presents to the [facility] ED on 10/06/22 with history of onset approximately 1 hour prior to ED presentation left-sided weakness althoughit initially started with some mild tingling in the left foot but progressed up the entire left side of the body distally progressing up work with eventual upper extremity involvement as well which is more profound with also trouble speaking more consistent with dysarthria lasting approximately 30 minutes with complete resolution upon ED arrival with no history of symptoms like this prior with no headache associated but she does have an underlying history as noted of migraines. #1. Left-sided hemiplegia and paresthesias as well as dysarthria, transient concerning for TIA/CVA versus possible complex migraine with history of migraines: Will admit to PCU, will obtain MRI Brain, ECHO, PT/OT/Speech/Nutrition evaluation per protocol. Will allow permissive HTN although of note patient with no hypertensive history and BP normal range currently, maintain on aspirin, continue home statin w/ AM FLP with adjustments as needed, fall precautions, magnesium/TSH/hemoglobin A1c/UDS/EtOH level requested. If MRI is negative certainly given migraine history could be a complex migraine although she had no headache associated. Would certainly have a low threshold to reinvolve neurology once further imaging and work-up was obtained if appropriate. We will also hold control pending further work- up. Will also await Teleneurology input/recommendations from ED evaluation. #2. Hypothyroidism with history of Graves' disease: Status post prior thyroidectomy, we will continue patient home levothyroxine regimen, TSH and freeT4 requested. #3. Hyperlipidemia: We will continue patient on statin therapy, FLP in am #4. Diabetes mellitus type II: Hold oral home regimen, continue home insulin regimen, ADA diet, accu checks w/ ISS, hemoglobin A1c requested, nutrition consultation for education and teaching given acute presentation. #5. Former tobacco use: Encourage continued tobacco cessation. EtOH level pending. #6. Former alcohol abuse: Encouraged continued sobriety. #7. MARIAH: CPAP nightly. #8. DVT prophylaxis: Lovenox. #9. CODE STATUS: Full code. Admission Evaluation Time spent evaluating chart, patient history, patient evaluation, care planning and discussion with specialists: 55 minutes. Charges/Coding Visit Charges Inpatient E&M: 86007 Init Hosp L2 10/06/222235 <Electronically signed by Danni Kearns MD> Cosigner Signature (if applicable): CC: TOSHIA Hernandez; Dr. Danni Kearns MD~ Signed [facility] Work Phone: 1(622) 240-453903-11-[address] Lopez [facility] 2022 10:18pm Note Date/Time 2022 8:1 9pm [facility] Medical Records Department [address] [place] [address] Emergency Department Summary 10/06/22 MR#: [id number] Acct: [id number] Name: BRIT VELASQUEZ Rep #:[id number] : 1990 32 From: Barron Lopez MD PCP: TOSHIA Gallo tus:ADM LUCIA Location: [place] [address] HPI History of Present Illness Chief Complaint: Numb/Ting Informant: patient Narrative Narrative: Patient had an episode of little over an hour ago where she developed left-sidedweakness. She states it started with some tingling in her left foot but progressed up to the entire left side of her body. She felt weak. It ended up that her arm ended up getting more affected and lasted longer. She had no pain. She also had trouble speaking. It sounds like this was more dysarthria rather than expressive or receptive aphasia. The symptoms lasted approximately 30 minutes and have now completely resolved. She has never had these symptoms before. She was feeling fine prior to this. However, she does have some risk for strokes. She is on control, she has type 2 diabetes for 6 years and is on metformin, she has high cholesterol and is on rosuvastatin. She is also on Synthroid. Patient also does have a history of migraines. But she has neverhad a complex or ocular migraine. She is also not having any headache. She waslast well about an hour to hour and 15 minutes ago but has been well again over the last 30 minutes and is now back to normal when I see her. She did not have any neck chest or back pain. No palpitations. No falls or trauma. [facility] Medical History (Updated 10/06/22 @ 22:[address] Barron Lopez MD) Chronic migraine Diabetes type 2, controlled Former tobacco use Graves disease History of alcohol abuse Hyperlipidemia Hyperthyroidism Hypothyroidism Mitral valve prolapse Polycystic ovarian disease Sleep apnea Vitamin deficiency Home Medications pen needle, diabetic 32 gauge x (BD Ultra-Fine Angie Pen Needle) #100 ea 03/12/18 [Rx Last Taken Unknown] Freestyle Lancing device See Rx Instructions .Route .COMPLEX ##1 08/29/18 [Rx Last Taken Unknown] lancets 28 gauge (FreeStyle Lancets) #60 ea 08/29/18 [Rx Last Taken Unknown] desogestrel 0.15 mg-ethinyl estradiol 0.03 mg tablet (Enskyce) 1 tab PO DAILY 10/08/18 [History Last Taken Unknown] liothyronine 5 mcg tablet 5 mcg PO DAILY #30 tabs 12/20/18 [Rx Last Taken Unknown] FreeStyle Lite Strips (blood sugar diagnostic) #120 ea 12/24/18 [Rx Last Taken Unknown] cholecalciferol (vitamin D3) 1,250 mcg (50,000 unit) capsule See Rx Instructions.Route .COMPLEX #14 caps 01/21/19 [Rx Last Taken Unknown] levothyroxine 100 mcg tablet 112 mcg PO DAILY 10/06/22 [History Last Taken Unknown] metformin 500 mg tablet 500 mg PO BID 10/06/22 [History Last Taken Unknown] rosuvastatin 10 mg tablet 10 mg PO DAILY 10/06/22 [History Last Taken Unknown] Allergy/AdvReac Type Severity Reaction Status Date / Time No Known Allergies Allergy Verified 10/06/22 19:57 Family History Father Hypertension High cholesterol Mother Alcoholism Grandmother Arthritis Grandfather Cancer Surgical History Hx of thyroidectomy Social History Smoking Status: Former smoker quit date: 07/30/16 Tobacco: How many years used: 9 second hand exposure: No alcohol intake: former details: Former heavy drinker substance use type: does not use what type of physical activity do you participate in: walking, running, bicycling and weight training frequency: 3-4 times per week seatbelt use: always ROS ROS ED Constitutional Constitutional ED: Denies fever(s) or subjective Eyes Eyes: Denies blurry vision or change in vision ENT ENT ED: Denies rhinorrhea or sore throat Cardiovascular Cardiovascular: Denies chest pain, palpitations or racing heartbeat Respiratory/Chest Respiratory/Chest: Denies cough or dyspnea Gastrointestinal Gastrointestinal: Denies nausea or vomiting Genitourinary Genitourinary ED: Denies dysuria Musculoskeletal Musculoskeletal: Denies arthralgias, back pain, myalgias or neck pain Integumentary Denies rash Neurologic Neurologic: Reports paresthesias, weakness and other Details: See history of present illness. ; Denies headache(s) Endocrine Endocrinology: Denies polydipsia or polyuria Hematologic/Lymphatic Hematologic/Lymphatic: Denies easy bleeding or easy bruising Allergic/Immunologic Allergic/Immunologic ED: Denies urticaria EXAM Physical Exam Narrative Exam Narrative: Patient is awake alert in no acute distress. She carries on normal conversation. HEENT shows moist mucous membrane. No asymmetry. No numbness. Eyes show normal range of motion. No subconjunctival hemorrhage. Neck shows no carotid bruit. No pain with motion. Lungs are clear bilaterally and patient is not hypoxic. Saturations are 98% on room air. Heart is regular. Rate about 90. I hear no murmur gallop or rub. Peripheral pulses are equal and normal and there is no peripheral mottling. Abdomen is soft nontender. shows no CVA or suprapubic tenderness. Extremities show no pallor or mottling swelling tenderness or asymmetry. Neurologic: Patient has an NIH of 0. There is no visual field deficit. Her voice is clear. No sign of weakness. Sensation is normal in all extremities. I find no deficit at this time and she feels not at this time. Const Vital Signs: 10/06/22 19:54 10/06/22 20:07 10/06/22 20:10 Temperature 98.3 F 98.3 F Temperature Source Temporal Temporal Pulse Rate 95 85 Respiratory Rate 18 16 Respiratory Effort Normal Non-Labored Respiratory Pattern Normal Blood Pressure 142/97 H 124/85 H Blood Pressure Mean 112 98 Pulse Ox 98 97 Oxygen Delivery Method Room Air Room Air 10/06/22 20:40 10/06/22 21:10 Temperature Temperature Source Pulse Rate 77 70 Respiratory Rate 18 15 Respiratory Effort Respiratory Pattern Blood Pressure 124/87 H 110/78 Blood Pressure Mean 99 88 Pulse Ox 98 97 Oxygen Delivery Method Room Air Room Air MDM MDM MDM Narrative Medical decision making narrative: My independent interpretation the patient's CT of the head without contrast shows no acute process. Final reading was similar. Radiology is reading of the CT angiogram showed no LVO. CBC was oh normal. Relation studies were normal. Electrolytes show no marked abnormalities. Troponin was negative. Cesium was normal. was negative. Alcohol was negative. I discussed the case with both the radiologist regarding both of her CTs. I also discussed the case with the SOC neurologist. He agrees that this was likely complex migraine. But he does recommend admission for work-up Recommended Plavix and aspirin. Patient really did not want to start meds but did except aspirin. The case was discussed with the hospitalist and the patient will be brought in the hospital for further work-up Lab Data Attestation: I reviewed the patient's lab results. Labs: Laboratory Results - last 24 hr 10/06/22 10/06/22 10/06/22 20:12 20:18 20:18 WBC 4.5 RBC 4.55 Hgb 13.5 Hct 40.0 MCV 87.9 MCH 29.7 MCHC 33.8 RDW Std Deviation 39.2 RDW Coeff of Jose Antonio 12.2 Plt Count 193 MPV 9.2 Immature Gran % (Auto) 0.200 Neut % (Auto) 46.2 L Lymph % (Auto) 41.6 H Morris % (Auto) 9.6 Eos % (Auto) 2.0 Baso % (Auto) 0.4 Absolute Neuts (auto) 2.1 Absolute Lymphs (auto) 1.87 Nucleated RBC % 0 PT 12.2 INR 0.9 APTT 26.0 Sodium Potassium Chloride Carbon Dioxide Anion Gap BUN Creatinine Estim Creat Clear Calc Est GFR (MDRD) Af Amer Est GFR (MDRD) Non-Af BUN/Creatinine Ratio Glucose Calcium Magnesium Troponin I High Sens Serum , Qual Ethyl Alcohol POC Glucose 189 H 10/06/22 10/06/22 10/06/22 20:18 20:18 20:18 WBC RBC Hgb Hct MCV MCH MCHC RDW Std Deviation RDW Coeff of Jose Antonio Plt Count MPV Immature Gran % (Auto) Neut % (Auto) Lymph % (Auto) Morris % (Auto) Eos % (Auto) Baso % (Auto) Absolute Neuts (auto) Absolute Lymphs (auto) Nucleated RBC % PT INR APTT Sodium 135 L Potassium 3.8 Chloride 99 Carbon Dioxide 29.0 Anion Gap 7 BUN 20 H Creatinine 0.84 Estim Creat Clear Calc 81.01 Est GFR (MDRD) Af Amer 103 Est GFR (MDRD) Non-Af 85 BUN/Creatinine Ratio 23.9 H Glucose 193 H Calcium 10.3 H Magnesium 1.6 Troponin I High Sens < 3 L Serum , Qual NEGATIVE Ethyl Alcohol POC Glucose 10/06/22 20:18 WBC RBC Hgb Hct MCV MCH MCHC RDW Std Deviation RDW Coeff of Jose Antonio Plt Count MPV Immature Gran % (Auto) Neut % (Auto) Lymph % (Auto) Morris % (Auto) Eos % (Auto) Baso % (Auto) Absolute Neuts (auto) Absolute Lymphs (auto) Nucleated RBC % PT INR APTT Sodium Potassium Chloride Carbon Dioxide Anion Gap BUN Creatinine Estim Creat Clear Calc Est GFR (MDRD) Af Amer Est GFR (MDRD) Non-Af BUN/Creatinine Ratio Glucose Calcium Magnesium Troponin I High Sens Serum , Qual Ethyl Alcohol < 3.0 POC Glucose Radiography Diagnostic Testing: Clinical Impression(s) from Imaging Studies Brain CT 10/06/22 20:10 IMPRESSION: Normal unenhanced CT scan of the brain. AIDOC was utilized to assist in identifying pertinent positive findings in this case. Electronically Signed: Eitan Coffman DO at 20:46 EST Reading Location ID and State: [email or web address] / [employer] Tel [phone], Service support , ADDENDUM: 10/06/222052 IMPRESSION: Normal unenhanced CT scan of the brain. AIDOC was utilized to assist in identifying pertinent positive findings in this case. N.B. : The above Results were Read Back by Eitan Coffman DO to Barron Lopez MD, and understanding confirmed on 2022 20:46:26 (ET). Electronically Signed: Eitan Coffman DO at 20:46 EST Reading Location ID and State: [employer] / [employer] Tel [phone], Service support , Head/Neck CTA 10/06/22 20:11 IMPRESSION: Normal CTA Head and neck with contrast. Electronically Signed: Eitan Coffman DO at 21:02 EST Reading Location ID and State: [employer] / [employer] Tel [phone], Service support , ADDENDUM: 10/06/222111 IMPRESSION: Normal CTA Head and neck with contrast. N.B. : The above Results were Read Back by Eitan Coffman DO to Barron Lopez MD, and understanding confirmed on 2022 21:05:39 (ET). Electronically Signed: Eitan Coffman DO at 21:02 EST Reading Location ID and State: [facility] / [place] Tel [phone], Service support , Chest X-Ray 10/06/22 20:31 IMPRESSION: Normal x-ray examination of the chest. Electronically Signed: Eitan Coffman DO at 21:03 EST Reading Location ID and State: [facility] / [place] Tel [phone], Service support , EKG Initial EKG: Comments: My independent interpretation of patient's EKG done for work-up of TIA symptoms shows a normal sinus rhythm with mild sinus arrhythmia. No ventricular ectopy. No acute ST elevation or depression. TX interval, QRS duration and QTc are normal. Management Discussion w/another healthcare provider: Hospitalist, Facility Environmental Technician and Radiologist Discharge Plan Dx/Rx/DC Orders Clinical Impression: Neurological deficit, transient, Diabetes mellitus, Hx of hypercholesterolemia,History of migraine Disposition Disposition: Acute Care Hospital [facility] Discharge Date/Time: 10/06/22 22:17 What to do if you have Problems For any increased pain, shortness of breath, bleeding, nausea or vomiting, chestpain, or any unexpected problems, contact your Primary Care Provider. Call [facility] ([phone]) or report to the closest Emergency Room. Call 911 if necessary. 10/06/222217 <Electronically signed by Barron Lopez MD> Cosigner Signature (if applicable): CC: GREEN CHAINERPhylicia Hernandez ~ Signed [facility] Work Phone: 1(217) 908-850603-10-[address] Lopez [facility] 2022 8:14pm Note Date/Time 2022 8:1 5pm [facility] Medical Records Department [address] [place] [address] Telemedicine Confirmation Receipt 10/06/22 MR#: [id number] Acct: [id number] Name: ARGENTINADAVISBRIT HILLMAN Massimo Rep #:[id number] : 1990 32 From: Barron Lopez MD PCP: TOSHIA Gallo tus:PRE ER [facility] Telemed has confirmed receipt of a request for visit. This document confirms receipt of the order initiating the consult. To find the results of the consultation, please view the patient's reports for the scanned Telemed Consult. [facility] Work Phone: [phone]) 934-629404-13-2022 NotePap Smear Specimen AdequacyApril 2021 11:30amCommentSatisfactory for evaluation. Endocervical and/or squamous metaplasticcells (endocervical component)are present.[facility] A#[id number] Health Center Work Phone: Comment on above:Satisfactory for evaluation. Endocervical and/or squamous metaplasticcells (endocervical component)are present.Discharge summary Author Deborah Gill [facility] November 29, 2023 3:57pm Note Date/Time November 29, 2023 3:57pm [facility] Medical Records Department [address] [place] [id number] Discharge Summary 11/29/23 1553 MR#: [id number] Acct: [id number] Name: BRIT VELASQUEZ Rep #:[id number] : 1990 33 From: Deborah Gill MD PCP: TOSHIA Gallo tus:ADM IN Location: [place] [address] Providers Date of Admission: 11/28/23 Date of Discharge: 11/29/23 Primary Care Physician: TOSHIA Gallo Reason For Visit: DKA Diagnosis Discharge Diagnosis (1) Diabetic ketoacidosis: Status: Acute Code(s): E11.10 - Type 2 diabetes mellitus with ketoacidosis without coma (2) Nausea: Status: Acute Code(s): R11.0 - Nausea Plan #Euglycemic DKA * Likely due to Jardiance * Patient had a steroid shot a few weeks ago for trigger finger and subsequently her blood sugars were running high. She complained of generalized malaise and weakness and saw her PCP who started her on Jardiance on account of elevated blood sugars. Jardiance was started a couple of days prior to admission. Patient subsequently noted that his symptoms persisted and actually worsened so she checked a urine ketones at home and they were markedly elevated. * Blood sugar on admission was 153. Creatinine 0.76 and anion gap is 17 with bicarb of 15. Sodium is 135 and potassium is 3.7. Serum osmolality is also 309. * Urinalysis showed urine ketones of 150 with urine glucose of thousand. * Serum acetone level was moderate. * Patient started on insulin drip in the ED. Will admit to ICU though her DKA is very mild and anticipate that he will improve quickly, insulin cannot be titrated on the floor so I will admit patient to the ICU. * Continue hydration with IV fluid normal saline and manage as per DKA protocol. * Check BMP every 4 hourly and switch to D5 NS once blood sugars less than 250. Keep patient n.p.o. for now. Can be started on a diet once anion gap closes x 2. * Of note, patient did become hypoglycemic when she got to the ICU and blood sugar checked was 38. Insulin drip was discontinued and patient was placed on D5 half-normal saline. Subsequent ABG showed anion gap had closed the patient started on a diet. * Jardiance discontinued. A1c was checked and this came back at 7.9. * If hypoglycemia does not recur, will resume patient's metformin tomorrow. * #Hypothyroidism: On Synthroid #Hyperlipidemia: On statin #Depression: On sertraline DVT prophylaxis: Lovenox Medications at Discharge Home Medications pen needle, diabetic 32 gauge x 5/32 (BD Ultra-Fine Angie Pen Needle) #100 ea 03/12/18 Freestyle Lancing device See Rx Instructions .Route .COMPLEX ##1 08/29/18 lancets 28 gauge (FreeStyle Lancets) #60 ea 08/29/18 liothyronine 5 mcg tablet 5 mcg PO DAILY #30 tabs 12/20/18 FreeStyle Lite Strips (blood sugar diagnostic) #120 ea 12/24/18 rosuvastatin 10 mg tablet 10 mg PO DAILY 10/06/22 cholecalciferol (vitamin D3) 25 mcg (1,000 unit) capsule 25 mcg PO DAILY 10/20/22 levothyroxine 112 mcg tablet 112 mcg PO DAILY 10/20/22 pimecrolimus 1 % topical cream 1 applic topical ONCE 10/20/22 doxycycline monohydrate 50 mg capsule 50 mg PO DAILY 11/28/23 sertraline 50 mg tablet 50 mg PO DAILY 11/28/23 metformin 1,000 mg tablet 1,000 mg PO BID #60 tabs 11/29/23 Hospital Course Operations None Procedures None Summary of Care Provided Minutes Spent on Discharge: 55 Hospital Course: BRIT VELASQUEZ, is a 33 F with a PMH as outlined who presents via the ED on 11/28/2023 with a complaint of generalised malaise. She also had nausea, vomiting and dizziness as well as elevated blood sugar for the last several weeks. She got a steroid shot a few weeks ago for a trigger finger and says she noticed herblood sugars were running high afterwards. She saw her PCP and was started on Jardiance 2 days prior to admission and states her blood sugars have been getting better. However she was still not feeling well and admitted to generalised malaise, weakness, nausea and some vomiting. She checked her urine ketones at home as she was concerned about DKA, and it read as high ketones, so she decided to come into the ED. she was diagnosed with type 2 diabetes mellitusabout 6 years ago and states that sugars have been quite well-controlled. 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 Her last A1c about a month ago was 6.6. She says she has been told by her primary care doctor that she may have type 1 diabetes mellitus instead of type 2 diabetes mellitus Vitals in the ED were blood pressure 109/85 with pulse rate of 105, respirate rate of 16 and temperature of 97.4 Fahrenheit. She was saturating well on room air. CBC was unremarkable and BMP showed bicarb of 15 with anion gap of 17, with creatinine of 0.76. Urinalysis showed elevated urine glucose as well as elevated urine ketones. Serum ketone level was moderate. Blood sugar on admission was 153. She has been admitted to be managed for DKA likely induced by Jardiance. Her elevated blood sugars had likely been due to the steroids shewas she had received. She was initially admitted to the ICU. She was placed onInsulin drip in the ED but this was discontinued when she got up to the ICU because she had become hypoglycemic with blood sugar dropping to 38. This corrected with D5 half-normal saline infusion as well as patient being given a sugary drink. Supriya anion gap closed and she was started on a diet. She was transferred out of the ICU. Her Jardiance was discontinued. Patient felt much better and did well. Her A1c was 7.9. Patient was placed on her metformin 1000mg twice daily. She was counseled that her A1c was likely due to the several weeks of elevated blood sugar as she had had in light of her steroid shot which had caused hyperglycemia. She is to follow-up with her primary care doctor within 1 to 2 weeks and counseled to be checking her sugars at home. Her Jardiance as mentioned was discontinued completely. She was also referred to [facility] to establish care to manage her diabetes. Patient was seen and examined prior to discharge. She felt well and had an uneventful night. Review of systems otherwise negative. Labs and vitals reviewed. Home medication reviewed and reconciled. Physical Exam Const alert, oriented x3 and no apparent distress General Appearance: cooperative, comfortable and well kempt Orientation / Consciousness: awake Exam Limitations: no limitations HEENT normocephalic, head/scalp atraumatic and hearing grossly normal bilaterally Mouth: oral and palatal mucosa normal Eyes PERRL, EOMs intact bilaterally and conjunctivae normal Neck no lymphadenopathy, supple and no JVD Resp normal respiratory effort, no retractions, no use of accessory muscles and clearto auscultation bilaterally Cardio regular rate, regular rhythm, S1 normal heart sound, S2 normal heart sound and no murmurs GI normal to inspection, nondistended, normoactive bowel sounds, soft to palpation,non-tender and non-distended Extremity normal to inspection, full ROM and no clubbing, cyanosis or edema Skin no rashes or lesions noted Neuro oriented x3, CN's II-XII intact bilaterally, moves all extremities and no focal motor deficits Sensorium / Orientation: awake and alert Motor Exam: strength 5/5 throughout Psych affect normal Weight / BMI Weight Weight: 132 lb 8 oz Body Mass Index (BMI) 23.4 ABG / Lab / Microbiology Data 11/28/23 08:35 11/29/23 15:25 Laboratory: Laboratory Results - last 24 hr 11/28/23 18:09: POC Glucose 112 H 11/28/23 21:35: POC Glucose 135 H 11/29/23 05:12: POC Glucose 138 H 11/29/23 06:01: Sodium 139, Potassium 4.0, Chloride 109 H, Carbon Dioxide 19.0 L, Anion Gap 11, BUN 16, Creatinine 0.48 L, Estim Creat Clear Calc 140.48, Est GFR (MDRD) Af Amer 193, Est GFR (MDRD) Non-Af 159, BUN/Creatinine Ratio 33.2 H, Glucose 147 H, Calcium 8.2 L 11/29/23 08:42: POC Glucose 168 H 11/29/23 12:05: POC Glucose 111 H 11/29/23 15:25: Sodium 138, Potassium 4.3, Chloride 106, Carbon Dioxide 25.0, Anion Gap 7, BUN 15, Creatinine 0.62, Estim Creat Clear Calc 108.76, Est GFR (MDRD) Af Amer 143, Est GFR (MDRD) Non-Af 118, BUN/Creatinine Ratio 24.0 H, Glucose 149 H, Calcium 9.0 Microbiology: Microbiology 11/28/23 08:35 Mucosa - Nose SARS-CoV-2, Influenza & RSV (PCR) - Final D/C Instructions Discharge Diet: 1800 Calorie Control Diet Discharge Activity: Return to Normal Activity Call your doctor if you observe: Fever of 101 or Higher and - (nausea, vomiting and general feeling of unwellness) Meaningful Use Info Meaningful Use Meaningful Use Diagnoses (Choose all that apply): None applicable Ischemic Stroke Statin Dosing Therapy Reference: STATIN DOSE THERAPY REFERENCE: * Patients > 75 years receive moderate or high dose statin therapy. * Patients 75 years or YOUNGER should receive HIGH intensity statin dose unless contraindicated. You will be required to document reason for non-treatment if statin daily dose does not meet guidelines. HIGH DOSE STATIN THERAPY DAILY Atorvastatin > than or = to 40 mg Rosuvastatin > than or = to 20 mg Amlodipine + Atorvastatin > than or = to 2.5/40 mg Ezetimibe + Simvastatin 10/80 mg Simvastatin 80mg Discharge Plan Admission Admit Date/Time: 11/28/23 10:25 Primary Reason for Your Visit: DKA Attending Provider: Deborah Gill Primary Care Provider: Cindy Hernandez GREEN CHAINER Instructions Patient Instructions: Ketoacidosis Discharge Orders/Prescriptions Prescriptions: New metformin 1,000 mg tablet 1,000 mg PO BID Qty: 60 2RF Continued cholecalciferol (vitamin D3) 25 mcg (1,000 unit) capsule 25 mcg PO DAILY levothyroxine 112 mcg tablet 112 mcg PO DAILY pimecrolimus 1 % cream 1 applic topical ONCE Patient Comments: START APPLYING TO THE AFFECTED LESIONS ON THE FACE ONCE A DAY rosuvastatin 10 mg tablet 10 mg PO DAILY sertraline 50 mg tablet 50 mg PO DAILY doxycycline monohydrate 50 mg capsule 50 mg PO DAILY (DME) pen needle, diabetic [BD Ultra-Fine Angie Pen Needle] 32 gauge x 5/32 needle See Dose Instructions .ROUTE .MEDSUPPLY Qty: 100 11RF Dose Instruction: As directed Rx Instructions: use with insulin pen (DME) lancets [FreeStyle Lancets] 28 gauge misc See Dose Instructions .ROUTE .MEDSUPPLY Qty: 60 11RF Dose Instruction: As directed Rx Instructions: use to check BG bid Freestyle Lancing device See Rx Instructions .ROUTE .COMPLEX Qty: 1 0RF Dose Instruction: use with lancets to corrdinate with Glucometer ; Rx Instructions: use with lancets to corrdinate with Glucometer ; liothyronine 5 mcg tablet 5 mcg PO DAILY Qty: 30 11RF (DME) FreeStyle Lite Strips strip See Dose Instructions .ROUTE .MEDSUPPLY Qty: 120 11RF Dose Instruction: As directed Rx Instructions: use to check BG 4 x qd Discontinued metformin 500 mg tablet 500 mg PO Q4H Jardiance 10 mg tablet 10 mg PO DAILY Referrals / Follow Up: Isabel Zuniga MD [Med Staff - Courtesy Staff] - Within 2 Weeks (call to establish endocrinology care for diabetes) Cindy Hernandez GREEN CHAINER, GREEN CHAINER-C [Primary Care Provider] - Within 2 Weeks Disposition Disposition (needs filled in before D/C Order can be placed): Home, Self Care Charges/Coding Visit Charges Inpatient E&M: 18320 Disch Hosp >30min 11/29/23 1472 <Electronically signed by Deborah Gill MD> Cosigner Signature (if applicable): CC: GREEN CHAINER-C Cindy Hernandez; Dr. Deborah Gill MD~ Signed [facility] Work Phone: Evaluation + Plan note Future Appointments Appointment Date:10/25/2021 08:00:00 AM Scheduled Provider:CINDY HERNANDEZ APRN - SALVAGE ENGINEERING TECHNICIAN Location:[facility] Appointment Type:PC OV Follow Up Future Scheduled Tests Laboratory* Thyroid Stimulating Hormone 01/24/22 * Free T4 01/24/22 * A1C Hemoglobin 01/24/22 * Complete Blood Count 01/24/22 * Lipid Profile 01/24/22 * Vitamin D Level 01/24/22 * Complete Metabolic Panel 01/24/22 [facility] Evaluation + Plan note Future Appointments Appointment Date:09/26/2022 10:40:00 AM Scheduled Provider:CINDY HERNANDEZ APRN, CNP Location:[facility] Appointment Type:PC OV Follow Up Diagnostic Tests Pending * Insulin Antibody 09/19/22 Future Scheduled Tests Laboratory* Thyroid Stimulating Hormone 01/24/22 * Free T4 01/24/22 * A1C Hemoglobin 01/24/22 * Complete Blood Count 01/24/22 * Lipid Profile 01/24/22 * Vitamin D Level 01/24/22 * Complete Metabolic Panel 01/24/22 [facility] Evaluation + Plan note Future Appointments Appointment Date:12/29/2022 10:20:00 AM Scheduled Provider:CINDY HERNANDEZ APRN, CNP Location:[facility] Appointment Type: OV Follow Up Future Scheduled Tests Laboratory* Thyroid Stimulating Hormone 01/24/22 * Thyroid Stimulating Hormone 12/24/22 * Thyroid Stimulating Hormone 10/23/22 * Free T4 01/24/22 * Free T4 12/24/22 * Free T4 10/23/22 * A1C Hemoglobin 01/24/22 * A1C Hemoglobin 12/24/22 * A1C Hemoglobin 10/23/22 * Complete Blood Count 01/24/22 * C-Peptide 12/24/22 * Lipid Profile 01/24/22 * Lipid Profile 12/24/22 * Hepatitis B E Antibody 09/26/22 * Hepatitis C Antibody IgG 09/26/22 * HIV 1/2 Ab 09/26/22 * Vitamin D Level 01/24/22 * Vitamin D Level 12/24/22 * Hepatitis B E Antigen 09/26/22 * Complete Metabolic Panel 01/24/22 * Complete Metabolic Panel 12/24/22 [facility] Evaluation + Plan note Future Appointments Appointment Date:05/01/2024 08:00:00 AM Scheduled Provider: Location:[facility] Appointment Type:PC Nurse Lab Appointment Date:05/08/2024 09:00:00 AM Scheduled Provider:CINDY HERNANDEZ APRN, CNP Location:[facility] Appointment Type: OV Follow Up Future Scheduled Tests Laboratory* Cortisol Level 05/02/24 * Thyroid Stimulating Hormone 06/09/23 * Thyroid Stimulating Hormone 05/02/24 * Thyroid Stimulating Hormone 12/24/22 * Free T4 06/09/23 * Free T4 05/02/24 * Free T4 12/24/22 * A1C Hemoglobin 06/09/23 * A1C Hemoglobin 05/02/24 * A1C Hemoglobin 12/24/22 * C-Peptide 12/24/22 * Lipid Profile 06/09/23 * Lipid Profile 05/02/24 * Lipid Profile 12/24/22 * Vitamin D Level 06/09/23 * Vitamin D Level 05/02/24 * Vitamin D Level 12/24/22 * Complete Metabolic Panel 06/09/23 * Complete Metabolic Panel 05/02/24 * Complete Metabolic Panel 12/24/22 [facility] Evwfwation noteNo assessment information available [facility] Work Phone: evaluation note* Diagnosis Onset Date Resolution Status Contact with and (suspected) exposure to other viral communicable diseases acute URI (upper respiratory infection) acute Diabetes mellitus acute Hx of hypercholesterolemia a cute Neurological deficit, transient acute [facility] Work Phone: evaluation note* Diagnosis Onset Date Resolution Status Contact with and (suspected) exposure to other viral communicable diseases acute URI (upper respiratory infection) acute Diabetes mellitus acute History of migraine acute Hx of hypercholesterolemia a cute Neurological deficit, transient acute [facility] Work Phone: Evaluation note* Diagnosis Onset Date Resolution Status Contact with and (suspected) exposure to other viral communicable diseases acute URI (upper respiratory infection) acute Neurological deficit, transient resolved [facility] Work Phone: Evaluation note* Diagnosis Acute URI- Primary Acute upper respiratory infections of unspecified site [facility]* Diagnosis Trigger middle finger of right hand- Primary Trigger finger (acquired) [facility]* Diagnosis Onset Date Resolution Status Diabetic ketoacidosis acute Nausea acute [facility] Work Phone: Evaluation note* Diagnosis Onset Date Resolution Status Diabetic ketoacidosis resolv ed Nausea resolved Hypothyroidism chronic Type 1 diabetes mellitus with hyperglycemia chronic [facility] Work Phone: Evaluation note* Diagnosis Supervision of high risk in first trimester- Primary Unspecified high-risk Pre-existing type 1 diabetes mellitus in in first trimester Diabetes mellitus, antepartum Mixed hyperlipidemia Generalized anxiety disorder History of Graves' disease Personal history of other endocrine, metabolic, and immunity disorders History of thyroidectomy, total Other specified disorders of thyroid History of PCOS Personal history of other genital system and obstetric disorders History of sleep apnea Personal history of other specified diseases PFO (patent foramen ovale) Ostium secundum type atrial septal defect Rosacea Screening for cervical cancer Screening for malignant neoplasm of the cervix Screening for human papillomavirus (HPV) Special screening examination for human papillomavirus (HPV) with uncertain date of last menstrual period in first trimester, antepartum documented in this encounter [facility] note* Diagnosis Bleeding in early - Primary Unspecified hemorrhage in early , unspecified as to episode of care documented in this encounter [facility] note* Diagnosis 13 weeks gestation of - Primary state, incidental Preexisting diabetes complicating , antepartum Diabetes mellitus, antepartum Supervision of high risk in first trimester Unspecified high-risk documented in this encounter [facility] note* Diagnosis Pre-existing type 1 diabetes mellitus in in first trimester- Primary Diabetes mellitus, antepartum History of thyroidectomy, total Other specified disorders of thyroid History of sleep apnea Personal history of other specified diseases Generalized anxiety disorder Mixed hyperlipidemia PFO (patent foramen ovale) Ostium secundum type atrial septal defect 13 weeks gestation of state, incidental Supervision of high risk in first trimester Unspecified high-risk Encounter for screening for malformation using ultrasound documented in this encounter [facility] note* Diagnosis Encounter for anatomic survey- Primary 19 weeks gestation of state, incidental Pre-existing type 1 diabetes mellitus in in first trimester Diabetes mellitus, antepartum Pre-existing type 1 diabetes mellitus in in second trimester- Primary Diabetes mellitus, antepartum Mixed hyperlipidemia History of thyroidectomy, total Other specified disorders of thyroid Generalized anxiety disorder History of sleep apnea Personal history of other specified diseases [facility]* Diagnosis Pre-existing type 1 diabetes mellitus in in second trimester- Primary Diabetes mellitus, antepartum Mixed hyperlipidemia History of thyroidectomy, total Other specified disorders of thyroid Generalized anxiety disorder History of sleep apnea Personal history of other specified diseases * Assessment & Plan Note - Miah Connors MD - 06/03/2024 1:14 PM ESTAssociated Problem(s): History of thyroidectomy, total TSH Date Value 03/19/2024 4.300 mIU/L 10/22/2018 4.810 uU/mL Following with endocrinology Needs TFTs qtrimester * Assessment & Plan Note - Miah Connors MD - 06/03/2024 1:14 PM ESTAssociated Problem(s): Pre-existing type 1 diabetes mellitus in in second trimester Detailed anatomy ultrasound within normal limits although some views suboptimal Given number to call and scheduled screening echocardiogram Reports that she is reporting glucoses to Dr Zuniga endocrinology and mostly within goal range Return 2-4 weeks to complete anatomic survey echocardiogram ordered and discussed Monthly growth ultrasound Twice weekly testing 32 weeks documented in this encounter [facility] note* Diagnosis 19 weeks gestation of - Primary state, incidental Preexisting diabetes complicating , antepartum Diabetes mellitus, antepartum Supervision of high risk in first trimester Unspecified high-risk Pre-existing type 1 diabetes mellitus in in second trimester- Primary Diabetes mellitus, antepartum Mixed hyperlipidemia History of thyroidectomy, total Other specified disorders of thyroid Generalized anxiety disorder History of sleep apnea Personal history of other specified diseases [facility]* Diagnosis Pre-existing type 1 diabetes mellitus in in second trimester- Primary Diabetes mellitus, antepartum Mixed hyperlipidemia History of thyroidectomy, total Other specified disorders of thyroid Generalized anxiety disorder History of sleep apnea Personal history of other specified diseases Encounter for follow-up ultrasound of anatomy- Primary [facility]* Diagnosis Pre-existing type 1 diabetes mellitus in in second trimester- Primary Diabetes mellitus, antepartum Mixed hyperlipidemia History of thyroidectomy, total Other specified disorders of thyroid Generalized anxiety disorder History of sleep apnea Personal history of other specified diseases Supervision of high risk in second trimester- Primary Unspecified high-risk Preexisting diabetes complicating , antepartum Diabetes mellitus, antepartum 23 weeks gestation of state, incidental Need for influenza vaccination Need for prophylactic vaccination and inoculation against influenza [facility]* Diagnosis Pre-existing type 1 diabetes mellitus in in second trimester- Primary Diabetes mellitus, antepartum Mixed hyperlipidemia History of thyroidectomy, total Other specified disorders of thyroid Generalized anxiety disorder History of sleep apnea Personal history of other specified diseases Encounter for follow-up ultrasound of anatomy- Primary Preexisting diabetes complicating , antepartum Diabetes mellitus, antepartum 23 weeks gestation of state, incidental [facility]* Diagnosis Pre-existing type 1 diabetes mellitus in in second trimester- Primary Diabetes mellitus, antepartum Mixed hyperlipidemia History of thyroidectomy, total Other specified disorders of thyroid Generalized anxiety disorder History of sleep apnea Personal history of other specified diseases abnormality affecting management of mother, single or unspecified fetus- Primary Pre-existing type 1 diabetes mellitus in in second trimester Diabetes mellitus, antepartum [facility]* Diagnosis Pre-existing type 1 diabetes mellitus in in second trimester- Primary Diabetes mellitus, antepartum Mixed hyperlipidemia History of thyroidectomy, total Other specified disorders of thyroid Generalized anxiety disorder History of sleep apnea Personal history of other specified diseases Preexisting diabetes complicating , antepartum- Primary Diabetes mellitus, antepartum Supervision of high risk in second trimester Unspecified high-risk 27 weeks gestation of state, incidental Need for vaccination Need for prophylactic vaccination and inoculation against unspecified single disease documented [facility] this [facility]* Diagnosis Pre-existing type 1 diabetes mellitus in in second trimester- Primary Diabetes mellitus, antepartum Mixed hyperlipidemia History of thyroidectomy, total Other specified disorders of thyroid Generalized anxiety disorder History of sleep apnea Personal history of other specified diseases Preexisting diabetes complicating , antepartum- Primary Diabetes mellitus, antepartum Supervision of high risk in second trimester Unspecified high-risk 27 weeks gestation of state, incidental [facility]* Diagnosis Pre-existing type 1 diabetes mellitus in in second trimester- Primary Diabetes mellitus, antepartum Mixed hyperlipidemia History of thyroidectomy, total Other specified disorders of thyroid Generalized anxiety disorder History of sleep apnea Personal history of other specified diseases Supervision of high risk in second trimester- Primary Unspecified high-risk Preexisting diabetes complicating , antepartum Diabetes mellitus, antepartum 31 weeks gestation of state, incidental documented in this encounter [facility] [facility] Diagnosis Pre-existing type 1 diabetes mellitus in in second trimester- Primary Diabetes mellitus, antepartum Mixed hyperlipidemia History of thyroidectomy, total Other specified disorders of thyroid Generalized anxiety disorder History of sleep apnea Personal history of other specified diseases Preexisting diabetes complicating , antepartum- Primary Diabetes mellitus, antepartum 31 weeks gestation of state, incidental documented [facility] this [facility] Diagnosis Pre-existing type 1 diabetes mellitus in in second trimester- Primary Diabetes mellitus, antepartum Mixed hyperlipidemia History of thyroidectomy, total Other specified disorders of thyroid Generalized anxiety disorder History of sleep apnea Personal history of other specified diseases Preexisting diabetes complicating , antepartum- Primary Diabetes mellitus, antepartum 32 weeks gestation of state, incidental [facility] encounter [facility] Diagnosis Pre-existing type 1 diabetes mellitus in in second trimester- Primary Diabetes mellitus, antepartum Mixed hyperlipidemia History of thyroidectomy, total Other specified disorders of thyroid Generalized anxiety disorder History of sleep apnea Personal history of other specified diseases Preexisting diabetes complicating , antepartum- Primary Diabetes mellitus, antepartum 33 weeks gestation of state, incidental documented [facility] encounter [facility] Diagnosis Pre-existing type 1 diabetes mellitus in in second trimester- Primary Diabetes mellitus, antepartum Mixed hyperlipidemia History of thyroidectomy, total Other specified disorders of thyroid Generalized anxiety disorder History of sleep apnea Personal history of other specified diseases Supervision of high risk in second trimester- Primary Unspecified high-risk Preexisting diabetes complicating , antepartum Diabetes mellitus, antepartum 33 weeks gestation of state, incidental documented in this [facility] Diagnosis Pre-existing type 1 diabetes mellitus in in second trimester- Primary Diabetes mellitus, antepartum Mixed hyperlipidemia History of thyroidectomy, total Other specified disorders of thyroid Generalized anxiety disorder History of sleep apnea Personal history of other specified diseases Preexisting diabetes complicating , antepartum- Primary Diabetes mellitus, antepartum 34 weeks gestation of state, incidental documented [facility] this encounter [facility]* Diagnosis Pre-existing type 1 diabetes mellitus in in second trimester- Primary Diabetes mellitus, antepartum Mixed hyperlipidemia History of thyroidectomy, total Other specified disorders of thyroid Generalized anxiety disorder History of sleep apnea Personal history of other specified diseases Supervision of high risk in third trimester- Primary Unspecified high-risk Preexisting diabetes complicating , antepartum Diabetes mellitus, antepartum 34 weeks gestation of state, incidental documented in this encounter [facility] note* Diagnosis Pre-existing type 1 diabetes mellitus in in second trimester- Primary Diabetes mellitus, antepartum Mixed hyperlipidemia History of thyroidectomy, total Other specified disorders of thyroid Generalized anxiety disorder History of sleep apnea Personal history of other specified diseases Encounter for ultrasound to check growth- Primary Encounter for routine screening for malformation using ultrasonics Preexisting diabetes complicating , antepartum Diabetes mellitus, antepartum 35 weeks gestation of state, incidental documented in this encounter [facility] note* Diagnosis Pre-existing type 1 diabetes mellitus in in second trimester- Primary Diabetes mellitus, antepartum Mixed hyperlipidemia History of thyroidectomy, total Other specified disorders of thyroid Generalized anxiety disorder History of sleep apnea Personal history of other specified diseases Supervision of high risk in third trimester- Primary Unspecified high-risk 35 weeks gestation of state, incidental Preexisting diabetes complicating , antepartum Diabetes mellitus, antepartum Anemia complicating , third trimester documented in this encounter [facility] note* Diagnosis Pre-existing type 1 diabetes mellitus in in second trimester- Primary Diabetes mellitus, antepartum Mixed hyperlipidemia History of thyroidectomy, total Other specified disorders of thyroid Generalized anxiety disorder History of sleep apnea Personal history of other specified diseases Preexisting diabetes complicating , antepartum- Primary Diabetes mellitus, antepartum 36 weeks gestation of state, incidental documented in this encounter [facility] note* Diagnosis Pre-existing type 1 diabetes mellitus in in second trimester- Primary Diabetes mellitus, antepartum Mixed hyperlipidemia History of thyroidectomy, total Other specified disorders of thyroid Generalized anxiety disorder History of sleep apnea Personal history of other specified diseases 36 weeks gestation of - Primary state, incidental Insulin controlled gestational diabetes mellitus (GDM) in third trimester Hypothyroidism, unspecified type Antepartum anemia complicating in third trimester * Assessment & Plan Note - Spencer Cordova MD - 10/03/2024 11:04 AM ESTAssociated Problem(s): Antepartum anemia complicating in third trimester documented in this encounter [facility] note* Diagnosis Pre-existing type 1 diabetes mellitus in in second trimester- Primary Diabetes mellitus, antepartum Mixed hyperlipidemia History of thyroidectomy, total Other specified disorders of thyroid Generalized anxiety disorder History of sleep apnea Personal history of other specified diseases 36 weeks gestation of - Primary state, incidental Insulin controlled gestational diabetes mellitus (GDM) in third trimester Hypothyroidism, unspecified type Antepartum anemia complicating in third trimester Preexisting diabetes complicating , antepartum- Primary Diabetes mellitus, antepartum 37 weeks gestation of state, incidental documented in this encounter [facility] note* Diagnosis Pre-existing type 1 diabetes mellitus in in second trimester- Primary Diabetes mellitus, antepartum Mixed hyperlipidemia History of thyroidectomy, total Other specified disorders of thyroid Generalized anxiety disorder History of sleep apnea Personal history of other specified diseases 36 weeks gestation of - Primary state, incidental Insulin controlled gestational diabetes mellitus (GDM) in third trimester Hypothyroidism, unspecified type Antepartum anemia complicating in third trimester Supervision of high risk in third trimester- Primary Unspecified high-risk Preexisting diabetes complicating , antepartum Diabetes mellitus, antepartum Hypothyroidism, unspecified type 37 weeks gestation of state, incidental documented in this encounter [facility] note* Diagnosis Pre-existing type 1 diabetes mellitus in in second trimester- Primary Diabetes mellitus, antepartum Mixed hyperlipidemia History of thyroidectomy, total Other specified disorders of thyroid Generalized anxiety disorder History of sleep apnea Personal history of other specified diseases care and examination immediately after delivery- Primary documented in this encounter [facility] note* Diagnosis Pre-existing type 1 diabetes mellitus in in second trimester (HCC)- Primary Diabetes mellitus, antepartum Mixed hyperlipidemia History of thyroidectomy, total Other specified disorders of thyroid Generalized anxiety disorder History of sleep apnea Personal history of other specified diseases Counseling for control, oral contraceptives- Primary General counseling for prescription of oral contraceptives documented in this encounter [facility] note* Diagnosis Pre-existing type 1 diabetes mellitus in in second trimester (HCC)- Primary Diabetes mellitus, antepartum Mixed hyperlipidemia History of thyroidectomy, total Other specified disorders of thyroid Generalized anxiety disorder History of sleep apnea Personal history of other specified diseases Encounter for gynecological examination (general) (routine) without abnormal findings- Primary Encounter for surveillance of contraceptive pills Surveillance of previously prescribed contraceptive pill documented in this encounter [facility] course Narrative No data available for this section [facility] Hospital Discharge instructions No data available for this section [facility] Progress note No data available for this section [facility] Reason for referral (narrative)* Outpatient Procedure (Routine) - Pending Review Specialty Diagnoses / Procedures Referred By Contac t Referred To Contact [facility] Diagnoses 13 weeks gestation of Preexisting diabetes complicating , antepartum Procedures ECHO Spencer Cordova MD [address] [place] [address] [facility] [address] [place] [address] Referral ID Status Reason Start Date Expiration Date Visits Requested Visits Authorized [id number] Pending Review Auto-Generat ed Referral 04/22/2024 04/22/2025 1 1 [facility] for referral (narrative)* Diagnostic Procedure Only (Routine) - New Request Specialty Diagnoses / Procedures Referred By Chadwick franks Referred To Contact [facility] Diagnoses 19 weeks gestation of Preexisting diabetes complicating , antepartum Procedures OBSTETRIC ULTRASOUND WHI US PREG UTERUS AFTER 1ST TRIMEST GESTATION Spencer Cordova MD [address] [place] [address] [facility] [address] [place] [id number] Referral ID Status Reason Start Date Expiration Date Visits Requested Visits Authorized [id number] New Request Auto-Generat ed Referral 06/03/2024 06/03/2025 1 1 [facility] for referral (narrative)* Diagnostic Procedure Only (Routine) - Pending Review Specialty Diagnoses / Procedures Referred By Contac t Referred To Contact [facility] Diagnoses Preexisting diabetes complicating , antepartum Supervision of high risk in second trimester Procedures OBSTETRIC ULTRASOUND WHI US PREG UTERUS AFTER 1ST TRIMEST 1 GESTATION Spencer Cordova MD [address] [place] [address] [facility] [address] [place] [id number] Referral ID Status Reason Start Date Expiration Date Visits Requested Visits Authorized [id number] Pending Review Auto-Generat ed Referral 07/03/2024 07/03/2025 4 1 [facility] for referral (narrative)* Diagnostic Procedure Only (Routine) - Open Specialty Diagnoses / Procedures Referred By Chadwick t Referred To Contact [facility] Diagnoses Supervision of high risk in second trimester Preexisting diabetes complicating , antepartum 31 weeks gestation of Procedures BIOPHYSICAL PROFILE US WHI BIOPHYSICAL PROFILE NON-STRESS TESTING Giuseppe Galdamez MD [address] [place] [address] [facility] [address] [place] [id number] Referral ID Status Reason Start Date Expiration Date V isits Requested Visits Authorized [id number] Open Auto-Generate d Referral 08/29/2024 08/29/2025 10 1 [facility] for referral (narrative)No reason for referral information [facility] Work Phone: Family History No Family History Records Found Relationship Condition Age at Onset Recorded Date/T lea father Hypertension Unknown High blood cholesterol Unknown mother Alcoholism Unknown grandmother Arthritis Unknown grandfather Malignant neoplasm Unknown Relationship Condition Age at Onset Recorded Date/T lea father High blood cholesterol Unknown Hypertension Unknown Diabetes mellitus Unknown mother Alcoholism Unknown grandmother Arthritis Unknown grandfather Malignant neoplasm Unknown Advance Directives No Advanced Directives Records Found Advance Directive Response Recorded Date/ Time Living Will No February 15, 2018 11:10am Power of Outcomes Manager No February 15 8 11:10am Advance Directive Response Recorded Date/ Time Living Will No 2022 8:10pm Power of Outcomes Manager No October 06 8:10pm Advance Directive Response Recorded Date/ Time Living Will No 2022 10:34pm Power of Outcomes Manager No October 06 10:34pm Advance Directive Response Recorded Date/ Time Living Will No 2022 11:34pm Power of Outcomes Manager No October 06 11:34pm Advance Directive Response Recorded Date/ Time Living Will No November 14, 2023 9:13pm Power of Outcomes Manager No November 13 9:13pm Advance Directive Response Recorded Date/ Time Living Will No November 28, 2023 8: 56am Power of Outcomes Manager No November 28, 2023 8:56am Advance Directive Response Recorded Date/ Time Living Will No November 28, 2023 11 :19am Power of Outcomes Manager No November 28, 2023 11:19am Advance Directive Response Recorded Date/ Time Living Will No November 28, 2023 11 :19am Do you have a Healthcare Power of Outcomes Manager? No November 28, 2023 11:19am Living Will No October 14, 2024 8:17pm Do you have a Healthcare Power of Outcomes Manager? No October 14, 2024 8:17pm Chief Complaint and Reason for Visit Chief Complaint COUGH/SU/FATIGUE/VOM ITTING CVA/TIA VS COMPLEX MIGRAINE Reason for Visit Contact with and (odonnell spected) exposure to other viral communicable diseases URI (upper respiratory infection) Diabetes mellitus Hx of hypercholesterolemia Neurological deficit, transient Chief Complaint COUGH/SU/FATIGUE/VOM ITTING CVA/TIA VS COMPLEX MIGRAINE CVA/TIA VS COMPLEX MIGRAINE CVA/TIA VS COMPLEX MIGRAINE Reason for Visit Contact with and (odonnell spected) exposure to other viral communicable diseases URI (upper respiratory infection) Diabetes mellitus History of migraine Hx of hypercholesterolemia Neurological deficit, transient Chief Complaint COUGH/SU/FATIGUE/VOM ITTING CVA/TIA VS COMPLEX MIGRAINE CVA/TIA VS COMPLEX MIGRAINE CVA/TIA VS COMPLEX MIGRAINE Reason for Visit Contact with and (odonnell spected) exposure to other viral communicable diseases URI (upper respiratory infection) Neurological deficit, transient Chief Complaint Hyperglycemia Chief Complaint Hyperglycemia DKA Reason for Visit Diabetic ketoacidosi s Nausea Chief Complaint Hyperglycemia DKA DKA Reason for Visit Diabetic ketoacidosi s Nausea Chief Complaint Hyperglycemia DKA DKA Diabetes E ORDERS Reason for Visit Diabetic ketoacidosi s Nausea Hypothyroidism Type 1 diabetes mellitus with hyperglycemia Chief Complaint Admit Date 3 M FU July 14, 2024 11:16am EORDER July 14, 2024 12:19pm 2 M FU September 08, 2024 9:50am VAGINAL DELIVERY October 14, 2024 7:1 1pm Reason for Visit Admit Date Hypothyroidism July 14, 2024 11:16am Type 1 diabetes mellitus with hyperglyce janee July 14, 2024 11:16am Hypothyroidism September 08, 2024 9:50am Type 1 diabetes mellitus with hyperglyce [facility] September 08, 2024 9:50am Diabetes mellitus during treat ed with insulin October 14, 2024 7:11pm Second degree perineal laceration October 14, 2024 7:11pm Single live October 14, 2024 7:1 1pm (spontaneous vaginal delivery) October 14, 2024 7:11pm Type 1 diabetes mellitus with hyperglyce [facility] October 14, 2024 7:11pm Chief Complaint Admit Date 2 M FU November 20, 2024 10: 41am INT LABS February 25, 2025 8:43 am Reason for Visit Admit Date Hypothyroidism November 20, 2024 10: 41am Type 1 diabetes mellitus without complic ations November 20, 2024 10:41am Summary Purpose Reason for Referral Specialty Diagnoses / Procedures Referred By Chadwick franks Referred To Contact Diagnoses History of sleep apnea Supervision of high risk in first trimester Procedures CONSULT TO SLEEP MEDICINE - ADULT OFFICE/OUTPATIENT [facility] 60 MINUTES Bambi Gloria APRN.CNM [address] [place] [address] Referral ID Status Reason Start Date Expiration Date Visits Requested Visits Authorized [id number] Authorized PCP Requested Referral 03/17/2024 03/17/2025 1 1 Specialty Diagnoses / Procedures Referred By Chadwick franks Referred To Contact Diagnoses with uncertain dates, antepartum Supervision of high risk in first trimester Procedures CONSULT TO MATERNAL MEDI OFFICE/OUTPATIENT [facility] 60 MINUTES Bambi Gloria APRN.CNM [address] [place] [address] Referral ID Status Reason Start Date Expiration Date Visits Requested Visits Authorized [id number] Authorized PCP Requested Referral Auto-Generate d Referral 03/17/2024 03/17/2025 1 1 Specialty Diagnoses / Procedures Referred By Contac t Referred To Contact [facility] Diagnoses with uncertain dates, antepartum Supervision of high risk in first trimester Procedures NUCHAL TRANSLUCENCY WHI US NUCHAL TRANSLUCENCY 1ST GESTATION Bambi Gloria APRN.CNCatherine [address] [place] [address] [address] Referral ID Status Reason Start Date Expiration Date Visits Requested Visits Authorized [id number] Pending Review Auto-Generat ed Referral 03/17/2024 03/17/2025 1 1 Specialty Diagnoses / Procedures Referred By Contac t Referred To Contact [facility] Diagnoses with uncertain dates, antepartum Supervision of high risk in first trimester Procedures OBSTETRIC ULTRASOUND WHI US PREG UTERUS AFTER 1ST TRIMEST 1/ GESTATION Bambi Gloria APRN.CNCatherine [address] [place] [address] [address] Referral ID Status Reason Start Date Expiration Date Visits Requested Visits Authorized [id number] New Request Auto-Generat ed Referral 03/17/2024 03/17/2025 1 1 Additional Source Comments Goals (unrecognized section and content) Goals may be documented in a n alternate section Care Team (unrecognized sect ion and content) Care Team Personnel Name: CINDY HERNANDEZ APRN - SALVAGE ENGINEERING TECHNICIAN Position: P4 [employer] Resurfacer Member Role: Primary Care Physician Address: Address: [address] [place] [address]- [place] Care Team Related Persons Name: ANTHONY VELASQUEZ Care Teams (unrecognized sec tion and content) Team Status: Active Member Role Status Dates Cindy Hernandez GREEN CHAINER, GREEN CHAINER-C Primary Care Provider Active Team Status: Inactive Member Role Status Dates Leandro Rodriguez PA, PA Attending Provider Active Team Status: Active Member Role Status Dates Cindy Hernandez GREEN CHAINER, GREEN CHAINER-C Primary Care Provider Active Dr. Barron Lopez MD Emergency Provider Active Dr. Danni Kearns MD Admit Provider, Attending Prov ider Active Team Status: Active Member Role Status Dates Cindy Hernandez GREEN CHAINER, GREEN CHAINER-C Primary Care Provider Active Dr. Barron Lopez MD Emergency Provider Active Dr. Danni Kearns MD Admit Provider, Attending Provider, Other Provider Active Team Status: Active Member Role Status Dates Cindy Hernandez GREEN CHAINER, GREEN CHAINER-C Primary Care Provider Active Dr. Leonardo Vega MD Attending Provider Active Team Status: Active Member Role Status Dates Cindy Hernandez GREEN CHAINER, GREEN CHAINER-C Primary Care Provider Active Dr. Barron Lopez MD Emergency Provider Active Dr. Danni Kearns MD Admit Provider, Other Provider Active Dr. Teddy Leach MD Attending Provider, Other Provi richie Active Team Status: Inactive Member Role Status Dates Cindy Hernandez GREEN CHAINER, GREEN CHAINER-C Primary Care Provider Active Dr. Barron Lopez MD Emergency Provider Active Dr. Danni Kearns MD Admit Provider, Other Provider Active Dr. Teddy Leach MD Attending Provider Active Team Status: Inactive Member Role Status Dates Cindy Hernandez GREEN CHAINER, GREEN CHAINER-C Primary Care Provider, Attending Provider Active Team Status: Inactive Member Role Status Dates Cindy Hernandez GREEN CHAINER, GREEN CHAINER-C Primary Care Provider, Attending Provider, Referring Provider Active Bolt Cutter Relationship Specialty Start Date End Date Cindy Hernandez, SALVAGE ENGINEERING TECHNICIAN [address] [place] [address] PCP - General Family Medicine 06/13/19 Bolt Cutter Relationship Specialty Start Date End Date Cindy Hernandez, SALVAGE ENGINEERING TECHNICIAN [address] [place] [address] PCP - General Family Medicine 06/13/19 Team Status: Inactive Member Role Status Dates Cindy Hernandez GREEN CHAINER, GREEN CHAINER-C Primary Care Provider Active Dr. Merry Tanner DO Emergency Provider Active Team Status: Inactive Member Role Status Dates Cindy Hernandez GREEN CHAINER, GREEN CHAINER-C Primary Care Provider Active Dr. Merry Tanner DO Attending Provider, Emergency Pro vider Active Team Status: Active Member Role Status Dates Cindy Hernandez GREEN CHAINER, GREEN CHAINER-C Primary Care Provider Active Dr. Caden Greenwood , Emergency Provider Active Dr. Deborah Gill MD Admit Provider, Attending Prov ider Active Team Status: Active Member Role Status Dates Cindy Hernandez GREEN CHAINER, GREEN CHAINER-C Primary Care Provider Active Dr. Caden Greenwood , Emergency Provider Active Dr. Deborah Gill MD Admit Provider, Attending Provider, Other Provider Active Team Status: Inactive Member Role Status Dates Cindy Hernandez GREEN CHAINER, GREEN CHAINER-C Primary Care Provider Active Dr. Caden Greenwood , Emergency Provider Active Dr. Deborah Gill MD Admit Provider, Attending Prov ider Active Team Status: Inactive Member Role Status Dates Cindy Hernandez GREEN CHAINER, GREEN CHAINER-C Primary Care Provider, Referring Provider Active Dr. Isabel Zuniga MD Attending Provider Active Team Status: Inactive Member Role Status Dates Cindy Hernandez GREEN CHAINER, GREEN CHAINER-C Primary Care Provider Active Dr. Isabel Zuniga MD Attending Provider, Referring Provi richie Active Bolt Cutter Relationship Specialty Start Date End Date Cindy Hernandez, SALVAGE ENGINEERING TECHNICIAN [address] [facility] [place] [address] PCP - General Family Medicine 06/13/19 Bolt Cutter Relationship Specialty Start Date End Date Cindy Hernandez, SALVAGE ENGINEERING TECHNICIAN [address] [facility] [place] [address] PCP - General Family Medicine 06/13/19 Bolt Cutter Relationship Specialty Start Date End Date Cindy Hernandez, SALVAGE ENGINEERING TECHNICIAN [address] [facility] [place] [address] PCP - General Family Medicine 06/13/19 Bolt Cutter Relationship Specialty Start Date End Date Cindy Hernandez, SALVAGE ENGINEERING TECHNICIAN [address] [facility] [place] [address] PCP - General Family Medicine 06/13/19 Bolt Cutter Relationship Specialty Start Date End Date Cindy Hernandez, SALVAGE ENGINEERING TECHNICIAN [address] [facility] [place] [address] PCP - General Family Medicine 06/13/19 Bolt Cutter Relationship Specialty Start Date End Date Cindy Hernandez, SALVAGE ENGINEERING TECHNICIAN [address] [facility] [place] [address] PCP - General Family Medicine 06/13/19 Bolt Cutter Relationship Specialty Start Date End Date Cindy Hernandez, SALVAGE ENGINEERING TECHNICIAN [address] [facility] [place] [address] PCP - General Family Medicine 06/13/19 Bolt Cutter Relationship Specialty Start Date End Date Cindy Hernandez, SALVAGE ENGINEERING TECHNICIAN [address] [facility] [place] [address] PCP - General Family Medicine 06/13/19 Bolt Cutter Relationship Specialty Start Date End Date Cindy Hernandez, SALVAGE ENGINEERING TECHNICIAN [address] [facility] [place] [address] PCP - General Family Medicine 06/13/19 Bolt Cutter Relationship Specialty Start Date End Date Cindy Hernandez, SALVAGE ENGINEERING TECHNICIAN [address] [facility] [place] [address] PCP - General Family Medicine 06/13/19 Bolt Cutter Relationship Specialty Start Date End Date Cindy Hernandez, SALVAGE ENGINEERING TECHNICIAN [address] [facility] [place] [address] PCP - General Family Medicine 06/13/19 Bolt Cutter Relationship Specialty Start Date End Date Cindy Hernandez, SALVAGE ENGINEERING TECHNICIAN [address] [facility] [place] [address] PCP - General Family Medicine 06/13/19 Bolt Cutter Relationship Specialty Start Date End Date Cindy Hernandez, SALVAGE ENGINEERING TECHNICIAN [address] [facility] [place] [address] PCP - General Family Medicine 06/13/19 Bolt Cutter Relationship Specialty Start Date End Date Cindy Hernandez, SALVAGE ENGINEERING TECHNICIAN [address] [facility] [place] [address] PCP - General Family Medicine 06/13/19 Bolt Cutter Relationship Specialty Start Date End Date Cindy Hernandez, SALVAGE ENGINEERING TECHNICIAN [address] [facility] [place] [address] PCP - General Family Medicine 06/13/19 Bolt Cutter Relationship Specialty Start Date End Date Cindy Hernandez, SALVAGE ENGINEERING TECHNICIAN [address] [facility] [place] [address] PCP - General Family Medicine 06/13/19 Bolt Cutter Relationship Specialty Start Date End Date Cindy Hernandez, SALVAGE ENGINEERING TECHNICIAN [address] [facility] [place] [address] PCP - General Family Medicine 06/13/19 Bolt Cutter Relationship Specialty Start Date End Date Cindy Hernandez, SALVAGE ENGINEERING TECHNICIAN [address] [facility] [place] [address] PCP - General Family Medicine 06/13/19 Bolt Cutter Relationship Specialty Start Date End Date Cindy Hernandez, SALVAGE ENGINEERING TECHNICIAN [address] [facility] [place] [address] PCP - General Family Medicine 06/13/19 Bolt Cutter Relationship Specialty Start Date End Date Cindy Hernandez, ROBERT [address] [facility] [place] [address] PCP - General Family Medicine 06/13/19 Bolt Cutter Relationship Specialty Start Date End Date Cindy Hernandez, SALVAGE ENGINEERING TECHNICIAN [address] [facility] [place] [address] PCP - General Family Medicine 06/13/19 Bolt Cutter Relationship Specialty Start Date End Date Cindy Hernandez, SALVAGE ENGINEERING TECHNICIAN [address] [facility] [place] [address] PCP - General Family Medicine 06/13/19 Team Status: Inactive Member Role Status Dates Cindy Hernandez GREEN CHAINER, GREEN CHAINER-C Primary Care Provider Active Start: July 142023 End: July 14, 2024 Cindy Hernandez GREEN CHAINER, GREEN CHAINER-C Referring Provider Active Start: June End: July 14, 2024 Dr. Isabel Zuniga MD Attending Provider Active Sta rt: July 14, 2024 End: July 14, 2024 Team Status: Inactive Member Role Status Dates Cindy Hernandez GREEN CHAINER, GREEN CHAINER-C Primary Care Provider Active Start: July 142023 End: July 14, 2024 Dr. Isabel Zuniga MD Attending Provider Active Sta rt: July 14, 2024 End: July 14, 2024 Dr. Isabel Zuniga MD Referring Provider Active Sta rt: July 14, 2024 End: July 14, 2024 Team Status: Inactive Member Role Status Dates Cindy Hernandez GREEN CHAINER, GREEN CHAINER-C Primary Care Provider Active Start: September 082024 End: September 08, 2024 Cindy Hernandez GREEN CHAINER, GREEN CHAINER-C Referring Provider Active Start: August End: September 08, 2024 Dr. Isabel Zuniga MD Attending Provider Active Sta rt: September 08, 2024 End: September 08, 2024 Team Status: Inactive Member Role Status Dates Cindy Hernandez GREEN CHAINER, GREEN CHAINER-C Primary Care Provider Active Start: September 082024 End: September 08, 2024 Dr. Isabel Zuniga MD Attending Provider Active Sta rt: September 08, 2024 End: September 08, 2024 Dr. Isabel Zuniga MD Referring Provider Active Sta rt: September 08, 2024 End: September 08, 2024 Team Status: Inactive Member Role Status Dates Cindy Hernandez GREEN CHAINER, GREEN CHAINER-C Primary Care Provider Active Start: October 14, 2024 End: October 16, 2024 Dr. Edilma Goncalves MD Admit Provider Active S tart: October 14, 2024 End: October 16, 2024 Dr. Edilma Goncalves MD Attending Provider Active Start: October 14, 2024 End: October 16, 2024 Dr. Edilma Goncalves MD Referring Provider Active Start: October 14, 2024 End: October 16, 2024 Bolt Cutter Relationship Specialty Start Date End Date Cindy Hernandez CNP [address] [place] [address] PCP - General Family Medicine 06/13/19 Bolt Cutter Relationship Specialty Start Date End Date Cindy Hernandez CNP [address] [facility] [place] [address] PCP - General Family Medicine 06/13/19 Bolt Cutter Relationship Specialty Start Date End Date Cindy Hernandez, SALVAGE ENGINEERING TECHNICIAN [address] [facility] [place] [address] PCP - General Family Medicine 06/13/19 Bolt Cutter Relationship Specialty Start Date End Date Cindy Hernandez, SALVAGE ENGINEERING TECHNICIAN [address] [facility] [place] [address] PCP - General Family Medicine 06/13/19 Team Status: Active Member Role/Relationship Status Dates Cindy Hernandez GREEN CHAINER, GREEN CHAINER-C Primary Care Provider Active Team Status: Inactive Member Role/Relationship Status Dates Cindy Hernandez NP, GREEN CHAINER-C Primary Care Provider Active Start: November 20, 2024 End: November 20, 2024 Cindy Hernandez NP, GREEN CHAINER-C Referring Provider Ac tive Start: November 20, 2024 End: November 20, 2024 Dr. Isabel Zuniga MD Attending Provider Active Sta rt: November 20, 2024 End: November 20, 2024 Team Status: Inactive Member Role/Relationship Status Dates Cindy Hernandez NP, GREEN CHAINER-C Primary Care Provider Active Start: February 25, 2025 End: February 25, 2025 TOSHIA Crews Attending Provider Active Start: February 25, 2025 End: February 25, 2025 TOSHIA Crews Referring Provider Active Start: February 25, 2025 End: February 25, 2025 Source Comments (unrecognize d section and content) In the event this informatio n is protected by the Federal Confidentiality of Alcohol and Drug Abuse Patient Records regulations: The Federal rules restrict any use of the information to criminally investigate or prosecute any alcohol or drug abuse patient.[facility] the event this information is protected by the Federal Confidentiality of Alcohol and Drug Abuse Patient Records regulations: The Federal rules restrict any use of the information to criminally investigate or prosecute any alcohol or drug abuse patient.[facility] Hospital[facility] the event this information is protected by the Federal Confidentiality of Alcohol and Drug Abuse Patient Records regulations: The Federal rules restrict any use of the information to criminally investigate or prosecute any alcohol or drug abuse patient.[facility] the event this information is protected by the Federal Confidentiality of Alcohol and Drug Abuse Patient Records regulations: The Federal rules restrict any use of the information to criminally investigate or prosecute any alcohol or drug abuse patient.[facility] HospitalIn the event this information is protected by the Federal Confidentiality of Alcohol and Drug Abuse Patient Records regulations: The Federal rules restrict any use of the information to criminally investigate or prosecute any alcohol or drug abuse patient.[facility] HospitalIn the event this information is protected by the Federal Confidentiality of Alcohol and Drug Abuse Patient Records regulations: The Federal rules restrict any use of the information to criminally investigate or prosecute any alcohol or drug abuse patient.[facility] HospitalIn the event this information is protected by the Federal Confidentiality of Alcohol and Drug Abuse Patient Records regulations: The Federal rules restrict any use of the information to criminally investigate or prosecute any alcohol or drug abuse patient.[facility] HospitalIn the event this information is protected by the Federal Confidentiality of Alcohol and Drug Abuse Patient Records regulations: The Federal rules restrict any use of the information to criminally investigate or prosecute any alcohol or drug abuse patient.[facility] HospitalIn the event this information is protected by the Federal Confidentiality of Alcohol and Drug Abuse Patient Records regulations: The Federal rules restrict any use of the information to criminally investigate or prosecute any alcohol or drug abuse patient.[facility] HospitalIn the event this information is protected by the Federal Confidentiality of Alcohol and Drug Abuse Patient Records regulations: The Federal rules restrict any use of the information to criminally investigate or prosecute any alcohol or drug abuse patient.[facility] HospitalIn the event this information is protected by the Federal Confidentiality of Alcohol and Drug Abuse Patient Records regulations: The Federal rules restrict any use of the information to criminally investigate or prosecute any alcohol or drug abuse patient.[facility] HospitalIn the event this information is protected by the Federal Confidentiality of Alcohol and Drug Abuse Patient Records regulations: The Federal rules restrict any use of the information to criminally investigate or prosecute any alcohol or drug abuse patient.[facility] HospitalIn the event this information is protected by the Federal Confidentiality of Alcohol and Drug Abuse Patient Records regulations: The Federal rules restrict any use of the information to criminally investigate or prosecute any alcohol or drug abuse patient.[facility] HospitalIn the event this information is protected by the Federal Confidentiality of Alcohol and Drug Abuse Patient Records regulations: The Federal rules restrict any use of the information to criminally investigate or prosecute any alcohol or drug abuse patient.[facility] HospitalIn the event this information is protected by the Federal Confidentiality of Alcohol and Drug Abuse Patient Records regulations: The Federal rules restrict any use of the information to criminally investigate or prosecute any alcohol or drug abuse patient.[facility] HospitalIn the event this information is protected by the Federal Confidentiality of Alcohol and Drug Abuse Patient Records regulations: The Federal rules restrict any use of the information to criminally investigate or prosecute any alcohol or drug abuse patient.[facility] HospitalIn the event this information is protected by the Federal Confidentiality of Alcohol and Drug Abuse Patient Records regulations: The Federal rules restrict any use of the information to criminally investigate or prosecute any alcohol or drug abuse patient.[facility] HospitalIn the event this information is protected by the Federal Confidentiality of Alcohol and Drug Abuse Patient Records regulations: The Federal rules restrict any use of the information to criminally investigate or prosecute any alcohol or drug abuse patient.[facility] HospitalIn the event this information is protected by the Federal Confidentiality of Alcohol and Drug Abuse Patient Records regulations: The Federal rules restrict any use of the information to criminally investigate or prosecute any alcohol or drug abuse patient.[facility] HospitalIn the event this information is protected by the Federal Confidentiality of Alcohol and Drug Abuse Patient Records regulations: The Federal rules restrict any use of the information to criminally investigate or prosecute any alcohol or drug abuse patient.[facility] HospitalIn the event this information is protected by the Federal Confidentiality of Alcohol and Drug Abuse Patient Records regulations: The Federal rules restrict any use of the information to criminally investigate or prosecute any alcohol or drug abuse patient.[facility] HospitalIn the event this information is protected by the Federal Confidentiality of Alcohol and Drug Abuse Patient Records regulations: The Federal rules restrict any use of the information to criminally investigate or prosecute any alcohol or drug abuse patient.[facility] HospitalIn the event this information is protected by the Federal Confidentiality of Alcohol and Drug Abuse Patient Records regulations: The Federal rules restrict any use of the information to criminally investigate or prosecute any alcohol or drug abuse patient.[facility] HospitalIn the event this information is protected by the Federal Confidentiality of Alcohol and Drug Abuse Patient Records regulations: The Federal rules restrict any use of the information to criminally investigate or prosecute any alcohol or drug abuse patient.[facility] HospitalIn the event this information is protected by the Federal Confidentiality of Alcohol and Drug Abuse Patient Records regulations: The Federal rules restrict any use of the information to criminally investigate or prosecute any alcohol or drug abuse patient.[facility] HospitalIn the event this information is protected by the Federal Confidentiality of Alcohol and Drug Abuse Patient Records regulations: The Federal rules restrict any use of the information to criminally investigate or prosecute any alcohol or drug abuse patient.[facility] HospitalIn the event this information is protected by the Federal Confidentiality of Alcohol and Drug Abuse Patient Records regulations: The Federal rules restrict any use of the information to criminally investigate or prosecute any alcohol or drug abuse patient.[facility] HospitalIn the event this information is protected by the Federal Confidentiality of Alcohol and Drug Abuse Patient Records regulations: The Federal rules restrict any use of the information to criminally investigate or prosecute any alcohol or drug abuse patient.[facility] HospitalIn the event this information is protected by the Federal Confidentiality of Alcohol and Drug Abuse Patient Records regulations: The Federal rules restrict any use of the information to criminally investigate or prosecute any alcohol or drug abuse patient.[facility] HospitalIn the event this information is protected by the Federal Confidentiality of Alcohol and Drug Abuse Patient Records regulations: The Federal rules restrict any use of the information to criminally investigate or prosecute any alcohol or drug abuse patient.[facility] HospitalIn the event this information is protected by the Federal Confidentiality of Alcohol and Drug Abuse Patient Records regulations: The Federal rules restrict any use of the information to criminally investigate or prosecute any alcohol or drug abuse patient.[facility] HospitalIn the event this information is protected by the Federal Confidentiality of Alcohol and Drug Abuse Patient Records regulations: The Federal rules restrict any use of the information to criminally investigate or prosecute any alcohol or drug abuse patient.[facility] HospitalIn the event this information is protected by the Federal Confidentiality of Alcohol and Drug Abuse Patient Records regulations: The Federal rules restrict any use of the information to criminally investigate or prosecute any alcohol or drug abuse patient.[facility] HospitalIn the event this information is protected by the Federal Confidentiality of Alcohol and Drug Abuse Patient Records regulations: The Federal rules restrict any use of the information to criminally investigate or prosecute any alcohol or drug abuse patient.[facility] HospitalIn the event this information is protected by the Federal Confidentiality of Alcohol and Drug Abuse Patient Records regulations: The Federal rules restrict any use of the information to criminally investigate or prosecute any alcohol or drug abuse patient.[facility] HospitalIn the event this information is protected by the Federal Confidentiality of Alcohol and Drug Abuse Patient Records regulations: The Federal rules restrict any use of the information to criminally investigate or prosecute any alcohol or drug abuse patient.[facility] HospitalIn the event this information is protected by the Federal Confidentiality of Alcohol and Drug Abuse Patient Records regulations: The Federal rules restrict any use of the information to criminally investigate or prosecute any alcohol or drug abuse patient.[facility] HospitalIn the event this information is protected by the Federal Confidentiality of Alcohol and Drug Abuse Patient Records regulations: The Federal rules restrict any use of the information to criminally investigate or prosecute any alcohol or drug abuse patient.[facility] HospitalIn the event this information is protected by the Federal Confidentiality of Alcohol and Drug Abuse Patient Records regulations: The Federal rules restrict any use of the information to criminally investigate or prosecute any alcohol or drug abuse patient.[facility] Reason for Visit (unrecogniz ed section and content) Reason Comments Cough Cough, congestion, r unny nose, chills, ST and SU x 5 days Reason Comments New Pain Reason Comments Initial OB Visit Reason Onset Date Comments Care 04/22/2024 Reason Comments US Specialty Diagnoses / Procedures Referred By Contac t Referred To Contact [facility] Diagnoses with uncertain dates, antepartum Supervision of high risk in first trimester Procedures NUCHAL TRANSLUCENCY WHI US NUCHAL TRANSLUCENCY 1ST GESTATION Bambi Gloria APRN.CNM [address] [place] [address] [address] Referral ID Status Reason Start Date Expiration Date V isits Requested Visits Authorized [id number] Closed Auto-Generate d Referral 04/08/2024 07/29/2024 1 1 Specialty Diagnoses / Procedures Referred By Contac t Referred To Contact [facility] Diagnoses with uncertain dates, antepartum Supervision of high risk in first trimester Procedures OBSTETRIC ULTRASOUND WHI US PREG UTERUS AFTER 1ST TRIMEST GESTATION Bambi Gloria APRN.CNM [address] [place] [address] [facility] [employer] [place] [id number] Referral ID Status Reason Start Date Expiration Date V isits Requested Visits Authorized [id number] Closed Auto-Generate d Referral 05/21/2024 07/29/2024 1 1 Reason Onset Date Comments Care 06/03/2024 Reason Comments Orders Reason Onset Date Comments Care 07/03/2024 Immunizations 07/03/2024 Flu vaccination Specialty Diagnoses / Procedures Referred By Contac t Referred To Contact [facility] Diagnoses 19 weeks gestation of Preexisting diabetes complicating , antepartum Procedures OBSTETRIC ULTRASOUND WHI US PREG UTERUS AFTER 1ST TRIMEST GESTATION Spencer Cordova MD [address] [place] [address] [address] Referral ID Status Reason Start Date Expiration Date V isits Requested Visits Authorized [id number] Closed Auto-Generat ed Referral Patient Cleared - Admin/Chairm an/Director advise to proceed or did not respond 07/01/2024 07/29/2024 1 1 Reason Comments Care Specialty Diagnoses / Procedures Referred By Contac t Referred To Contact [facility] Diagnoses Preexisting diabetes complicating , antepartum Supervision of high risk in second trimester Procedures OBSTETRIC ULTRASOUND WHI US PREG UTERUS AFTER 1ST TRIMEST GESTATION Spencer Cordova MD [address] [place] [address] [address] Referral ID Status Reason Start Date Expiration Date Visits Requested Visits Authorized [id number] Authorized Auto-Generat ed Referral 07/29/2025 4 4 Reason Onset Date Comments Care 08/29/2024 Specialty Diagnoses / Procedures Referred By Contac t Referred To Contact [facility] Diagnoses Supervision of high risk in second trimester Preexisting diabetes complicating , antepartum 31 weeks gestation of Procedures BIOPHYSICAL PROFILE US WHI BIOPHYSICAL PROFILE NON-STRESS TESTING Giuseppe Galdamez MD [address] [place] [address] [address] Referral ID Status Reason Start Date Expiration Date V isits Requested Visits Authorized [id number] Open Auto-Generat ed Referral Patient Cleared - Admin/Chairm an/Director advise to proceed or did not respond 08/29/2024 08/29/2025 10 1 Specialty Diagnoses / Procedures Referred By Contac t Referred To Contact [facility] Diagnoses Supervision of high risk in second trimester Preexisting diabetes complicating , antepartum 31 weeks gestation of Procedures BIOPHYSICAL PROFILE US WHI BIOPHYSICAL PROFILE NON-STRESS TESTING Giuseppe Galdamez MD [address] [place] [address] Phone: tel: fax: [address] [address] Referral ID Status Reason Start Date Expiration Date V isits Requested Visits Authorized [id number] Open Auto-Generat ed Referral Patient Cleared - Admin/Chairm an/Director advise to proceed or did not respond 08/29/2024 08/29/2025 10 1 Reason Onset Date Comments Care 09/12/2024 Reason Onset Date Comments Care 09/19/2024 Reason Onset Date Comments Care 09/26/2024 Reason Onset Date Comments Care 10/03/2024 Reason Onset Date Comments Care 10/10/2024 Reason Comments Ob Delivery Note Reason Comments Early Reason Comments Contraception Consult Reason Comments Yearly Exam INFORMATION SOURCE (unrecogn ized section and content) DATE CREATED AUTHOR 11/06/2023 [facility] ([place]) DATE CREATED AUTHOR AUTHOR'S ORGANIZ ATION 11/14/2023 [facility] DATE CREATED AUTHOR AUTHOR'S ORGANIZ ATION 07/11/2024 [facility] DATE CREATED AUTHOR AUTHOR'S ORGANIZ ATION 02/10/2025 [facility] DATE CREATED AUTHOR AUTHOR'S ORGANIZ ATION 06/05/2025 [facility] Inactive Administered Medications - up to 3 most recent administrations Administered Medications (un recognized section and content) Medication Order MAR Action Action Date Dose Rate Site betamethasone acetate-betamethasone sodium phosphate 3 mg injection (CELESTONE) 3 mg, Injection - FOR ORTHO USE ONLY, ONCE, 1 dose, Starting on Sun11/13/23 at 0932, Until Sun11/13/23 at 0932 Given 11/13/2023 9:32 AM EDT 3 mg Hand, Right lidocaine (PF) 10 mg/mL (1 %) 0.5 mL injection (XYLOCAINE) 0.5 mL, Injection - FOR ORTHO USE ONLY, ONCE, 1 dose, Starting on Sun11/13/23 at 0932, Until Sun11/13/23 at 0932 Given 11/13/2023 9:32 AM EDT 0.5 mL [address], Right FOR RECORDS PERTAINING TO PATIENTS WHO ARE OR HAVE BEEN ENROLLED IN A CHEMICAL DEPENDENCY/SUBSTANCEABUSE PROGRAM, SOME INFORMATION MAY BE OMITTED. This clinical summary was aggregated from multiple sources. Caution should be exercised in using it in the provision of clinical care. This summary normalizes information from multiple sources, and as a consequence, information in this document may materially change the coding, format and clinical context of patient data. In addition, data may be omitted in some cases. CLINICAL DECISIONS SHOULD BE BASED ON THE PRIMARY CLINICAL RECORDS. [email or web address] [facility]. provides no warranty or guarantee of the accuracy or completeness of information in this document.
[2025-07-25 09:09] LABS: Hematocrit 40.3 % (37-47); Hemoglobin 13.2 g/dL (12.0-15.0); Immature Granulocytes Count 0.030 X10^3/uL (0.0-0.0); Mean Corp Hgb Conc 32.8 g/dL (32-36); Mean Corpuscular Volume 85.6 fL (81-99); Mean Platelet Vol. 8.7 fl (6.2-12.0); NRBC Flagged by Analyzer 0 % (0-5); Platelet Count 355 K/mm3 (150-450); RBC Distribution Width CV 12.1 % (11.6-14.6); RBC Distribution Width SD 37.5 fl (35.1-43.9); Red Blood Count 4.71 M/mm3 (4.2-5.4); White Blood Count 5.9 K/mm3 (4.4-11.0)
[2025-07-25 09:57] LABS: Creatinine, Urine (random) 101.00 mg/dL (28.00-217.00); Microalbumin,Random Urine < 12.0 mg/L (<20 mg/L)
[2025-07-25 10:16] LABS: AST(SGOT) 18 U/L (<=31); Alanine Aminotransfer ALT/SGPT 11 U/L (<=34); Albumin, Serum 4.0 g/dL (3.5-5.0); Alkaline Phosphatase 51 U/L (35-104); Anion Gap 8 (7-18); BUN 13 mg/dL (4-19); BUN/Creat Ratio 18.4 RATIO (10-20); Calcium,Total 9.4 mg/dL (7.6-11.0); Carbon Dioxide 28.3 mmol/L (20.0-29.0); Chloride 102 mmol/L (96-106); Cholesterol 213 mg/dL (<=200); Globulin 2.9 g/dL (2.2-4.2); Glucose 91 mg/dL (70-99); Low Density Lipoprotein Calc. 135 mg/dL; Potassium 4.2 mmol/L (3.5-5.1); Triglycerides 129 mg/dL; Very Low Density Lipoprotein 26 mg/dL (5-40); Vitamin D,25 Hydroxy 41.1 ng/mL (30-100); cholesterol:hdl ratio screen 3.84
== END | disposition home or self-care (01) ==
LOC: LAB 08:32
PROVIDERS: PCP Nurse Practitioner Family; Referring Provider Internal Medicine Endocrinology, Diabetes & Metabolism; Visit Provider Internal Medicine Endocrinology, Diabetes & Metabolism
DX: E10.9 Type 1 diabetes mellitus without complications (principal); E03.8 Other specified hypothyroidism; E06.3 Autoimmune thyroiditis; E78.5 Hyperlipidemia, unspecified
CPT/HCPCS: 36415; 80053; 80061; 82043; 82306; 82570; 84443; 85025